=== PATIENT | male | born 1955 | race Caucasian/White ===

== ENCOUNTER → 2017-12-02 09:22 | Outpatient (CLI) | payer OTHER, SELFPAY ==
[2017-12-02 12:14] LABS: Absolute Lymphocyte Count 1.55 X10^3/ul (0.83-4.51); Absolute Neutrophil Count 4.7 X10^3/uL (2.0-7.7); Basophil# 0.05 X10^3/uL; Basophil% 0.7 % (0-1); Eosinophil# 0.19 X10^3/uL; Eosinophils% 2.6 % (0-5); Hematocrit 40.1 % (40-54); Hemoglobin 13.8 g/dl (13.0-16.5); Lymphocyte # 1.55 X10^3/ul (4.0); Lymphocyte % 21.1 % (19-41); Mean Corp Hgb Conc 34.4 g/gl (32-36); Mean Corpuscular Hgb 32.5 pg (27.0-32.0); Mean Corpuscular Volume 94.6 fL (80-94); Mean Platelet Vol. 11.3 fl (6.2-12.0); Monocyte# 0.84 X10^3/uL; Monocyte% 11.4 % (0-10); Neutrophil % 63.8 % (47-70); Platelet Count 223 K/mm3 (150-450); RBC Distribution Width CV 11.6 % (11.6-14.6); RBC Distribution Width SD 39.8 fl (35.1-43.9); Red Blood Count 4.24 M/mm3 (4.6-6.2); White Blood Count 7.4 K/mm3 (4.4-11.0)
[2017-12-02 12:29] LABS: Hemoglobin A1c 5.5 % (4.2-6.3)
[2017-12-02 12:35] LABS: AST(SGOT) 16 U/L (15-37); Alanine Aminotransfer ALT/SGPT 32 U/L (16-61); Albumin, Serum 3.8 g/dL (3.2-5.0); Alkaline Phosphatase 65 U/L (45-117); Anion Gap 9 (5-15); BUN 13 mg/dL (7-18); BUN/Creat Ratio 12.3 RATIO (10-20); Calcium,Total 8.8 mg/dL (8.5-10.1); Chloride 100 mmol/L (98-107); Creatinine, Serum 1.06 mg/dL (0.70-1.30); EST Glomerular Filtration Rate 75 mL/min (>60); Est Glom Filt Rate - Afr Amer 91 mL/min (>60); Ferritin 173 ng/mL (26-388); Globulin 3.7 g/dL (2.2-4.2); Glucose 107 mg/dL (70-110); Iron 140 ug/dL (65-175); Protein, Total 7.5 g/dL (6.4-8.2); Sodium Level 136 mmol/L (136-145)
[2017-12-02 12:39] LABS: POSITIVE COUNT NO; POSITIVE DIFFERENTIAL NO; POSITIVE MORPHOLOGY NO
== END ==
PROVIDERS: Family Provider Family Medicine; PCP Family Medicine; Visit Provider Family Medicine
DX: I10 Essential (primary) hypertension (principal); E78.5 Hyperlipidemia, unspecified; D64.9 Anemia, unspecified; R73.01 Impaired fasting glucose
CPT/HCPCS: 36415; 80053; 82728; 83036; 83540; 84443; 85025

== ENCOUNTER → 2018-12-15 08:51 | Outpatient (CLI) | payer OTHER, SELFPAY ==
[2018-12-15 12:18] LABS: Absolute Lymphocyte Count 1.58 X10^3/ul (0.83-4.51); Absolute Neutrophil Count 4.7 X10^3/uL (2.0-7.7); Basophil# 0.05 X10^3/uL; Basophil% 0.7 % (0-1); Eosinophil# 0.27 X10^3/uL; Eosinophils% 3.6 % (0-5); Hematocrit 40.2 % (40-54); Hemoglobin 13.3 g/dl (13.0-16.5); Lymphocyte # 1.58 X10^3/ul (4.0); Lymphocyte % 21.3 % (19-41); Mean Corp Hgb Conc 33.1 g/gl (32-36); Mean Corpuscular Hgb 31.8 pg (27.0-32.0); Mean Corpuscular Volume 96.2 fL (80-94); Mean Platelet Vol. 10.8 fl (6.2-12.0); Monocyte# 0.75 X10^3/uL; Monocyte% 10.1 % (0-10); Neutrophil # 4.74 X10^3/uL (2.7-7.7); Platelet Count 296 K/mm3 (150-450); RBC Distribution Width CV 11.8 % (11.6-14.6); RBC Distribution Width SD 40.7 fl (35.1-43.9); Red Blood Count 4.18 M/mm3 (4.6-6.2); White Blood Count 7.4 K/mm3 (4.4-11.0)
[2018-12-15 12:20] LABS: POSITIVE COUNT NO; POSITIVE DIFFERENTIAL NO; POSITIVE MORPHOLOGY NO
[2018-12-15 12:39] LABS: BUN 9 mg/dL (7-18); Creatinine, Serum 1.01 mg/dL (0.70-1.30); Glucose 108 mg/dL (74-106)
[2018-12-15 12:40] LABS: AST(SGOT) 18 U/L (15-37); Alanine Aminotransfer ALT/SGPT 27 U/L (16-61); Albumin, Serum 3.7 g/dL (3.2-5.0); Alkaline Phosphatase 67 U/L (45-117); Anion Gap 9 (5-15); BUN/Creat Ratio 8.9 RATIO (10-20); Calcium,Total 8.8 mg/dL (8.5-10.1); Chloride 105 mmol/L (98-107); EST Glomerular Filtration Rate 79 mL/min (>60); Est Glom Filt Rate - Afr Amer 96 mL/min (>60); Globulin 3.8 g/dL (2.2-4.2); Potassium 4.5 mmol/L (3.5-5.1); Protein, Total 7.5 g/dL (6.4-8.2); Sodium Level 139 mmol/L (136-145); T4 Free Direct 1.13 ng/dL (0.76-1.46); Thyroid Stim Hormone (TSH) 1.07 uIU/mL (0.358-3.74)
== END ==
PROVIDERS: Family Provider Family Medicine; PCP Family Medicine; Visit Provider Family Medicine
DX: I10 Essential (primary) hypertension (principal); D64.9 Anemia, unspecified; M10.9 Gout, unspecified
CPT/HCPCS: 36415; 80053; 84439; 84443; 84550; 85025

== ENCOUNTER 2019-01-12 09:10 | Day surgery (SDC) | payer OTHER, SELFPAY ==
[2019-01-12] VITALS (8 sets, daily range): BP systolic 91–128; BP diastolic 57–77; PULSE 57–81; RESP 16; TEMP 35.6–37; O2SAT 93–100; BMI 28.4
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
--- NOTE | 2019-01-12 10:44 | OP.ENDO_ITS ---
01/12/2019 Dorian Metzger Re : Colonoscopy procedure for Vincenzo Benítez Dear Yassine This procedure was performed on Saturday, January 12, 2019. My impressions and recommendations are as follows: Impressions : - One bleeding colonic angioectasia. Treated with argon beam coagulation. - The examination was otherwise normal on direct and retroflexion views. - No specimens collected. Recommendations : - Discharge patient to home. - Resume previous diet. - Continue present medications. - Repeat colonoscopy in 10 years for screening purposes. My findings are described in the full procedure note, which is enclosed. If I can be of further assistance, please feel free to contact me at Doctor phone number(s): , Work: . Sincerely, Nikhil Freedman MD 01/12/2019 10:43:46 AM This report has been signed electronically.
== END 2019-01-12 11:29 | disposition home or self-care (01) ==
LOC: EN 09:11 → AC 09:12
PROVIDERS: Family Provider Family Medicine; PCP Family Medicine; Referring Provider Surgery; Visit Provider Surgery
PROC: 0DJD8ZZ Inspection of Lower Intestinal Tract, Via Natural or Artificial Opening Endoscopic (ICD-10-PCS; CPT 45378; principal; 2019-01-12 10:25)
DX: Z12.11 Encounter for screening for malignant neoplasm of colon (principal); K55.21 Angiodysplasia of colon with hemorrhage; E78.00 Pure hypercholesterolemia, unspecified; I10 Essential (primary) hypertension; Z79.899 Other long term (current) drug therapy; Z79.82 Long term (current) use of aspirin
CPT/HCPCS: 45382; J7120

== ENCOUNTER 2019-01-18 06:38 | Day surgery (SDC) | payer OTHER, SELFPAY ==
[2019-01-12 09:20] VITALS: BMI 28.4
[2019-01-18] VITALS (7 sets, daily range): BP systolic 87–127; BP diastolic 48–81; PULSE 64–87; RESP 18; TEMP 36.1–36.6; O2SAT 96–100; BMI 27.9
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
--- NOTE | 2019-01-18 08:00 | COLBX_PTH ---
PATIENT: SOFYA CABRERA LOC: EN U#:[id number] AGE/SX: 63/M ROOM: RE01/18/[address]: Dr. Nikhil Freedman MD : [id number] BED: DIS: 01/18/2019 SPEC #: [id number] RECD: 01/18/19 09:05 STATUS: CATHERINE DEVIN #: [id number] CORY: 01/18/19 08:[address]: Nikhil Freedman DEPT: SURGICAL PATHOLOGY RECD BY: Hal Willson ENTERED: 01/18/19 10:37 SP TYPE: COLON BX OTHR DR: Dr. Dorian Metzger MD Tissues: Rectum, NOS Procedures: Surgery Specimen Level IV HEADER OPERATION: Colonoscopy (MAC) PRE-OP DIAGNOSIS: GI bleeding; history of AVM TISSUE SUBMITTED: Polyp rectum MICROSCOPIC DIAGNOSIS Polyp rectum, biopsy: Tubular adenoma. SJ:cristy 01/19/19 MICROSCOPIC DESCRIPTION Slides are reviewed. GROSS DESCRIPTION Received in fixative is one container labeled with the patient's name and designated polyp rectum. The specimen consists of a piece of biswas-pink polyp measuring 0.4 x 0.3 x 0.2 cm. The specimen is totally submitted in one cassette. / SJ:cristy 01/18/19 TC:1 CPT: 77182
--- NOTE | 2019-01-18 08:22 | OP.ENDO_ITS ---
01/18/2019 Dorian Metzger Re : Colonoscopy procedure for Vincenzo Benítez Dear Yassine This procedure was performed on December. My impressions and recommendations are as follows: Impressions : - One recently bleeding colonic angioectasia. Clips were placed. - One polyp in the rectum, removed with a hot snare. Resected and retrieved. Recommendations : - Await pathology results. - Repeat colonoscopy date to be determined after pending pathology results are reviewed for surveillance based on pathology results. - Continue present medications. My findings are described in the full procedure note, which is enclosed. If I can be of further assistance, please feel free to contact me at Doctor phone number(s): , Work: . Sincerely, Nikhil Freedman MD 01/18/2019 8:22:27 AM This report has been signed electronically.
== END 2019-01-18 08:53 | disposition home or self-care (01) ==
LOC: EN 06:39 → AC 06:40
PROVIDERS: Family Provider Family Medicine; PCP Family Medicine; Referring Provider Surgery; Visit Provider Surgery
PROC: 0DJD8ZZ Inspection of Lower Intestinal Tract, Via Natural or Artificial Opening Endoscopic (ICD-10-PCS; CPT 45378; principal; 2019-01-18 07:55)
DX: D12.8 Benign neoplasm of rectum (principal); K55.21 Angiodysplasia of colon with hemorrhage; Q27.33 Arteriovenous malformation of digestive system vessel; E78.00 Pure hypercholesterolemia, unspecified; I10 Essential (primary) hypertension; Z79.82 Long term (current) use of aspirin; Z79.899 Other long term (current) drug therapy
CPT/HCPCS: 45380; 45382; 88305; J7120

== ENCOUNTER → 2019-12-31 | Outpatient (CLI) | payer BC, SELFPAY ==
[2019-01-18 07:11] VITALS: BMI 27.9
[2019-12-31 12:53] LABS: Absolute Lymphocyte Count 1.32 X10^3/uL (0.83-4.51); Absolute Neutrophil Count 6.9 X10^3/uL (2.0-7.7); Basophil# 0.05 X10^3/uL; Basophil% 0.5 % (0-1); Eosinophil# 0.19 X10^3/uL; Hematocrit 41.4 % (40-54); Hemoglobin 13.6 g/dL (13.0-16.5); Lymphocyte # 1.32 X10^3/ul (4.0); Mean Corp Hgb Conc 32.9 g/dL (32-36); Mean Corpuscular Hgb 31.6 pg (27.0-32.0); Mean Corpuscular Volume 96.3 fL (80-94); Mean Platelet Vol. 11.3 fl (6.2-12.0); Monocyte# 0.89 X10^3/uL; Monocyte% 9.5 % (0-10); NRBC Flagged by Analyzer 0 % (0-5); Neutrophil # 6.92 X10^3/uL (2.7-7.7); Neutrophil % 73.6 % (47-70); Platelet Count 248 K/mm3 (150-450); RBC Distribution Width CV 11.9 % (11.6-14.6); RBC Distribution Width SD 41.9 fl (35.1-43.9); White Blood Count 9.4 K/mm3 (4.4-11.0)
[2019-12-31 13:37] LABS: ALB/GLOB Ratio 0.9 RATIO (0.9-2.4); AST(SGOT) 13 U/L (15-37); Alanine Aminotransfer ALT/SGPT 27 U/L (16-61); Albumin, Serum 3.6 g/dL (3.2-5.0); Alkaline Phosphatase 78 U/L (45-117); Anion Gap 5 (5-15); BUN 15 mg/dL (7-18); BUN/Creat Ratio 14.9 RATIO (10-20); Calcium,Total 9.1 mg/dL (8.5-10.1); Chloride 107 mmol/L (98-107); Creatinine, Serum 1.01 mg/dL (0.70-1.30); EST Glomerular Filtration Rate 79 mL/min (>60); Est Glom Filt Rate - Afr Amer 95 mL/min (>60); Globulin 3.9 g/dL (2.2-4.2); Glucose 91 mg/dL (74-106); Iron 152 ug/dL (65-175); Protein, Total 7.5 g/dL (6.4-8.2); Sodium Level 140 mmol/L (136-145); Thyroid Stim Hormone (TSH) 1.17 uIU/mL (0.358-3.74); Uric Acid 7.3 mg/dL (3.5-7.2)
== END | disposition home or self-care (01) ==
LOC: BFHLAB 10:37
PROVIDERS: PCP Family Medicine; Visit Provider Family Medicine
DX: I10 Essential (primary) hypertension (principal); E78.5 Hyperlipidemia, unspecified; D64.9 Anemia, unspecified
CPT/HCPCS: 36415; 80053; 83540; 84443; 84550; 85025

== ENCOUNTER → 2020-12-31 08:53 | Outpatient (CLI) | payer BC, SELFPAY ==
[2019-01-18 07:11] VITALS: BMI 27.9
[2020-12-31 12:16] LABS: Absolute Lymphocyte Count 1.56 X10^3/uL (0.83-4.51); Absolute Neutrophil Count 4.4 X10^3/uL (2.0-7.7); Basophil# 0.05 X10^3/uL; Basophil% 0.7 % (0-1); Eosinophil# 0.16 X10^3/uL; Eosinophils% 2.3 % (0-5); Hematocrit 41.7 % (40-54); Hemoglobin 13.4 g/dL (13.0-16.5); Lymphocyte # 1.56 X10^3/ul (4.0); Lymphocyte % 22.4 % (19-41); Mean Corp Hgb Conc 32.1 g/dL (32-36); Mean Corpuscular Hgb 31.6 pg (27.0-32.0); Mean Corpuscular Volume 98.3 fL (80-94); Mean Platelet Vol. 10.9 fl (6.2-12.0); Monocyte% 11.5 % (0-10); NRBC Flagged by Analyzer 0 % (0-5); Neutrophil # 4.36 X10^3/uL (2.7-7.7); Neutrophil % 62.5 % (47-70); Platelet Count 260 K/mm3 (150-450); Red Blood Count 4.24 M/mm3 (4.6-6.2)
[2020-12-31 12:57] LABS: AST(SGOT) 19 U/L (15-37); Alanine Aminotransfer ALT/SGPT 31 U/L (16-61); Albumin, Serum 3.8 g/dL (3.2-5.0); Alkaline Phosphatase 82 U/L (45-117); Anion Gap 7 (5-15); BUN 12 mg/dL (7-18); BUN/Creat Ratio 11.5 RATIO (10-20); Chloride 103 mmol/L (98-107); Cholesterol 215 mg/dL (200); Creatinine, Serum 1.04 mg/dL (0.70-1.30); EST Glomerular Filtration Rate 76 mL/min (>60); Est Glom Filt Rate - Afr Amer 92 mL/min (>60); Globulin 3.9 g/dL (2.2-4.2); Glucose 102 mg/dL (74-106); High Density Lipoprotein 56 mg/dL; Potassium 3.9 mmol/L (3.5-5.1); Protein, Total 7.7 g/dL (6.4-8.2); Sodium Level 138 mmol/L (136-145); T4 Free Direct 1.23 ng/dL (0.76-1.46); Thyroid Stim Hormone (TSH) 1.63 uIU/mL (0.358-3.74); Triglycerides 133 mg/dL; Uric Acid 6.8 mg/dL (3.5-7.2); Very Low Density Lipoprotein 27 mg/dL (5-40)
[2020-12-31 13:04] LABS: Hemoglobin A1c 5.6 % (3.8-5.6)
== END ==
PROVIDERS: PCP Family Medicine; Visit Provider Family Medicine
DX: E78.5 Hyperlipidemia, unspecified (principal); D64.9 Anemia, unspecified; I10 Essential (primary) hypertension; R73.01 Impaired fasting glucose
CPT/HCPCS: 36415; 80053; 80061; 83036; 84439; 84443; 84550; 85025

== ENCOUNTER → 2023-03-16 | Outpatient (CLI) | payer BC, SELFPAY ==
[2023-03-16 18:17] LABS: Absolute Lymphocyte Count 2.02 X10^3/uL (0.83-4.51); Absolute Neutrophil Count 5.6 X10^3/uL (2.0-7.7); Basophil# 0.07 X10^3/uL; Basophil% 0.8 % (0-1); Eosinophil# 0.11 X10^3/uL; Eosinophils% 1.3 % (0-5); Hemoglobin 13.2 g/dL (13.0-16.5); Lymphocyte # 2.02 X10^3/ul (0.83-4.51); Lymphocyte % 23.3 % (19-41); Mean Corp Hgb Conc 33.8 g/dL (32-36); Mean Corpuscular Hgb 32.7 pg (27.0-32.0); Mean Corpuscular Volume 96.5 fL (80-94); Mean Platelet Vol. 11.1 fl (6.2-12.0); Monocyte% 10.4 % (0-10); NRBC Flagged by Analyzer 0 % (0-5); Neutrophil # 5.55 X10^3/uL (2.7-7.7); Neutrophil % 63.9 % (47-70); Platelet Count 235 K/mm3 (150-450); RBC Distribution Width CV 12.1 % (11.6-14.6); RBC Distribution Width SD 42.6 fl (35.1-43.9); Red Blood Count 4.04 M/mm3 (4.6-6.2); White Blood Count 8.7 K/mm3 (4.4-11.0)
[2023-03-16 18:54] LABS: ALB/GLOB Ratio 0.9 RATIO (0.9-2.4); AST(SGOT) 23 U/L (15-37); Alanine Aminotransfer ALT/SGPT 31 U/L (16-61); Albumin, Serum 3.7 g/dL (3.2-5.0); Alkaline Phosphatase 66 U/L (45-117); Anion Gap 6 (5-15); BUN 15 mg/dL (7-18); BUN/Creat Ratio 14.7 RATIO (10-20); Calcium,Total 8.9 mg/dL (8.5-10.1); Chloride 105 mmol/L (98-107); Cholesterol 206 mg/dL (200); Creatinine, Serum 1.02 mg/dL (0.70-1.30); EST Glomerular Filtration Rate 77 mL/min (>60); Est Glom Filt Rate - Afr Amer 93 mL/min (>60); Globulin 4.2 g/dL (2.2-4.2); Glucose 97 mg/dL (74-106); High Density Lipoprotein 48 mg/dL; PSA,Total - Annual Screen 3.43 ng/mL (0.00-4.00); Potassium 4.1 mmol/L (3.5-5.1); Protein, Total 7.9 g/dL (6.4-8.2); Sodium Level 138 mmol/L (136-145); Triglycerides 132 mg/dL; Very Low Density Lipoprotein 26 mg/dL (5-40)
== END | disposition home or self-care (01) ==
LOC: BFHLAB 14:19
PROVIDERS: PCP Nurse Practitioner Family; Referring Provider Nurse Practitioner Family; Visit Provider Nurse Practitioner Family
DX: E78.5 Hyperlipidemia, unspecified (principal); I10 Essential (primary) hypertension; Z12.5 Encounter for screening for malignant neoplasm of prostate
CPT/HCPCS: 36415; 80053; 80061; 84153; 85025; G0103

== ENCOUNTER → 2024-03-19 | Outpatient (CLI) | payer MEDICARE, SELFPAY ==
[2024-03-19 10:20] LABS: Absolute Neutrophil Count 3.8 X10^3/uL (2.0-7.7); Basophil# 0.05 X10^3/uL; Basophil% 0.8 % (0-1); Eosinophil# 0.14 X10^3/uL; Eosinophils% 2.2 % (0-5); Hematocrit 38.1 % (40-54); Lymphocyte % 24.9 % (19-41); Mean Corp Hgb Conc 34.1 g/dL (32-36); Mean Corpuscular Hgb 32.6 pg (27.0-32.0); Mean Corpuscular Volume 95.5 fL (80-94); Mean Platelet Vol. 10.6 fl (6.2-12.0); Monocyte# 0.82 X10^3/uL; Monocyte% 12.8 % (0-10); NRBC Flagged by Analyzer 0 % (0-5); Neutrophil # 3.79 X10^3/uL (2.7-7.7); Neutrophil % 58.8 % (47-70); Platelet Count 233 K/mm3 (150-450); RBC Distribution Width CV 12.2 % (11.6-14.6); RBC Distribution Width SD 42.4 fl (35.1-43.9); Red Blood Count 3.99 M/mm3 (4.6-6.2); White Blood Count 6.4 K/mm3 (4.4-11.0)
[2024-03-19 11:39] LABS: AST(SGOT) 12 U/L (15-37); Alanine Aminotransfer ALT/SGPT 20 U/L (16-61); Albumin, Serum 3.7 g/dL (3.2-5.0); Alkaline Phosphatase 62 U/L (45-117); Anion Gap 7 (5-15); BUN 18 mg/dL (7-18); BUN/Creat Ratio 15.8 RATIO (10-20); Calcium,Total 9.3 mg/dL (8.5-10.1); Chloride 103 mmol/L (98-107); Cholesterol 228 mg/dL (200); Creatinine, Serum 1.14 mg/dL (0.70-1.30); EST Glomerular Filtration Rate 68 mL/min (>60); Est Glom Filt Rate - Afr Amer 82 mL/min (>60); Globulin 3.7 g/dL (2.2-4.2); Glucose 111 mg/dL (74-106); High Density Lipoprotein 45 mg/dL; PSA,Total - Annual Screen 3.88 ng/mL (0.00-4.00); Potassium 3.9 mmol/L (3.5-5.1); Protein, Total 7.4 g/dL (6.4-8.2); Sodium Level 135 mmol/L (136-145); Triglycerides 217 mg/dL; Very Low Density Lipoprotein 43 mg/dL (5-40)
[2024-03-19 12:31] LABS: Hemoglobin A1c 5.5 % (3.8-5.6)
== END | disposition home or self-care (01) ==
PROVIDERS: PCP Nurse Practitioner Family; Referring Provider Nurse Practitioner Family; Visit Provider Nurse Practitioner Family
DX: Z12.5 Encounter for screening for malignant neoplasm of prostate (principal); I10 Essential (primary) hypertension; E78.5 Hyperlipidemia, unspecified; R73.01 Impaired fasting glucose
CPT/HCPCS: 36415; 80053; 80061; 83036; 84153; 85025; G0103

== ENCOUNTER → 2025-03-22 | Outpatient (CLI) | payer MEDICARE, SELFPAY ==
[2025-03-22 10:32] LABS: Absolute Lymphocyte Count 1.58 X10^3/uL (0.83-4.51); Absolute Neutrophil Count 4.3 X10^3/uL (2.0-7.7); Basophil# 0.07 X10^3/uL; Eosinophil# 0.13 X10^3/uL; Eosinophils% 1.9 % (0-5); Hemoglobin 12.8 g/dL (13.0-16.5); Lymphocyte # 1.58 X10^3/ul (0.83-4.51); Lymphocyte % 22.7 % (19-41); Mean Corp Hgb Conc 33.7 g/dL (32-36); Mean Corpuscular Hgb 31.8 pg (27.0-32.0); Mean Corpuscular Volume 94.3 fL (80-94); Mean Platelet Vol. 10.8 fl (6.2-12.0); Monocyte# 0.87 X10^3/uL; Monocyte% 12.5 % (0-10); NRBC Flagged by Analyzer 0 % (0-5); Neutrophil # 4.26 X10^3/uL (2.7-7.7); Neutrophil % 61.3 % (47-70); Platelet Count 211 K/mm3 (150-450); RBC Distribution Width CV 13.2 % (11.6-14.6); RBC Distribution Width SD 45.3 fl (35.1-43.9); Red Blood Count 4.03 M/mm3 (4.6-6.2)
[2025-03-22 11:14] LABS: ALB/GLOB Ratio 1.3 RATIO (0.9-2.4); AST(SGOT) 19 U/L (<=37); Alanine Aminotransfer ALT/SGPT 16 U/L (<=46); Alkaline Phosphatase 77 U/L (40-129); Anion Gap 12 (5-15); BUN 14 mg/dL (4-19); BUN/Creat Ratio 14.7 RATIO (10-20); Calcium,Total 9.7 mg/dL (7.6-11.0); Carbon Dioxide 24.6 mmol/L (21.0-32.0); Chloride 101 mmol/L (98-108); Cholesterol 202 mg/dL (<=200); Creatinine, Serum 0.93 mg/dL (0.70-1.20); EST Glomerular Filtration Rate 88 (>60); Globulin 3.2 g/dL (2.2-4.2); Glucose 96 mg/dL (70-99); High Density Lipoprotein 50 mg/dL; Low Density Lipoprotein Calc. 127 mg/dL; Potassium 3.8 mmol/L (3.3-5.1); Protein, Total 7.2 g/dL (5.9-8.4); Sodium Level 138 mmol/L (133-145); Total Bilirubin 0.39 mg/dL (0.00-1.30); Triglycerides 127 mg/dL; Very Low Density Lipoprotein 25 mg/dL (5-40); cholesterol:hdl ratio screen 4.08
== END | disposition home or self-care (01) ==
LOC: MTLAB 08:58
PROVIDERS: PCP Nurse Practitioner Family; Referring Provider Nurse Practitioner Family; Visit Provider Nurse Practitioner Family
DX: I10 Essential (primary) hypertension (principal); E78.5 Hyperlipidemia, unspecified; R73.01 Impaired fasting glucose; Z12.5 Encounter for screening for malignant neoplasm of prostate
CPT/HCPCS: 36415; 80053; 80061; 83036; 84153; 85025; G0103

== ENCOUNTER → 2025-04-09 | Outpatient (CLI) | payer MEDICARE, SELFPAY ==
--- OUTSIDE RECORDS SUMMARY | 2025-04-09 09:15 | XMS RPT_ITS | CCD ---
Author Organization [facility] Inform ion Partnership [facility] Care Team Providers Care Medical Insurance Claims Specialist Name Role Phone Evin PERALTA-EULALIO, [place] Primary Care Provider [phone] EVIN, MORGAN HILL Primary Care Unavailable ENRRIQUE ARROYO Admitting Unavailable FELIX LUNDY Attending Unavailable CARLY JOSEPH Consulting Unavailable Evin TSAI, [place] Primary Care Provider VERONICA MAN Attending Unavailable EVIN, MORGAN HILL Primary Care Unavailable FACUNDO WOODS Admitting Unavailab ERLINDA Campuzano Consulting Unavailable JAG MEDRANO Attending UnavailHONEY Marrufo Referring Unavailable EVIN, MORGAN HILL Primary Care Unavailable FACUNDO WOODS Admitting Unavailab FACUNDO Ohara Consulting Unavailab le EVIN, MORGAN HILL Primary Care Unavailable FACUNDO WOODS Attending Unavailab FACUNDO Ohara Admitting Unavailab le EVIN, MORGAN HILL Primary Care Unavailable FACUNDO WOODS Attending Unavailab le EVIN, MORGAN HILL Primary Care Unavailable FACUNDO WOODS Attending Unavailab le Evin WOOD [employer]INET FINISHER-C, Bashir Primary Care Provider Evin WOOD CABINET FINISHER-C, Bashir Attending Provider Evin WOOD CABINET FINISHER-C, Bashir Referring Provider Evin Bashir Referring Unavailable Evin, Bashir Attending Unavailable Evin, [place] Primary Care Unavailable Medications Current Medications Medication Drug Class(es) Dates Sig (Normalized) Sig (Original) amoxicillin 875 mg / clavulanate 125 mg oral tablet (5 sources) Penicillin-class Antibacterial Start: 11-24-2024 End: 11-29-2024 take 1 tablet by mouth twice daily amoxicillin-clav ulanate (AUGMENTIN) 875-125 mg per tablet Take 1 (one) tablet by mouth 2 (two) times a day for 5 days . 10 tablet 11/24/2024 11/29/2024 Active Start: 11-08-2024 End: 11-23-2024 amoxicillin-clavulanate (AUG MENTIN) 500-125 mg per tablet DONE ON 11/18/24 BID . 11/08/2024 11/23/2024 Discontinued Start: 10-19-2024 End: 10-29-2024 take 1 tablet by mouth twice daily amoxicillin-clavulanate (AUGMENTIN) 875-125 mg per tablet Take 1 (one) tablet by mouth 2 (two) times a day for 10 days . 20 tablet 10/19/2024 10/29/2024 Active aspirin 81 mg delayed release oral tablet (1 source) Platelet Aggregation Inhibitor, Nonsteroidal Anti-inflammatory Drug Start: 01-10-2019 take 1 tablet by mouth once daily Aspirin 81 MG tablet,delayed release (DR/EC) Active 81 mg PO DAILY January 10, 2019 12:00am 200 ml ciprofloxacin 2 mg/ml injection (1 source) Quinolone Antimicrobial Start: 10-12-2024 take 400 mg intravenously every twelve hours 400 mg, intravenous, at 200 mL/hr, Administer over 60 Minutes, Every 12 hours, First dose on Tue10/12/24 at 1530, premix bag, Dosing of this medication varies based on severity of illness. Does this patient have sepsis or concern for sepsis (probable or documented infection plus systemic manifestations of infection)? Yes, Suspected Indication (Select all that apply): Abdominal Infection, Type of Therapy: Definitive, No Cultures, Type of infection: Community-Acquire d, Indications: Abdominal Infection 2 ml famotidine 10 mg/ml injection (2 sources) Histamine-2 Receptor Antagonist Start: 10-11-2024 20 mg, intravenous, Administer over 2 Minutes, Every 12 hours scheduled, First dose on Hien 10/11/24 at 0900 furosemide 20 mg oral tablet (6 sources) Loop Diuretic Start: 10-16-2024 End: 10-21-2024 take 1 tablet by mouth once daily furosemide (Lasix) 20 mg tablet Indications: Other acute appendicitis Take 1 tablet (20 mg) by mouth once daily for 3 doses. 10/18/2024 10/21/2024 Active Start: 10-14-2024 take 20 mg intravenously once 20 mg, intravenous, Once, On 10/15/24 at 2000, For 1 dose, For doses less than or = 160 mg, give IV push at maximum rate of 40 mg/min For doses greater than 160 mg, dilute in 50 mL and administer at 4 mg/min magnesium hydroxide 80 mg/ml oral suspension (2 sources) Start: 10-11-2024 take 30 mL by mouth every twenty-four hours as needed ondansetron ODT (Zofran-ODT) disintegrating tablet 4 mg (2 sources) Start: 10-11-2024 take 1 tablet by mouth every eight hours as needed ondansetron ODT (Zofran-ODT) disintegrating tablet 4 mg oxyCODONE hydrochloride 5 mg oral tablet (5 sources) Opioid Agonist Start: 11-23-2024 End: 11-29-2024 take 1 tablet by mouth every six hours as needed for pain oxyCODONE (ROXICODONE) 5 MG immediate release tablet Indications: Perforated appendicitis Take 1 (one) tablet (5 mg total) by mouth every 6 (six) hours as needed for pain (Days supply per fill: 5) . 16 tablet 11/24/2024 11/29/2024 Active Start: 10-11-2024 take 1 tablet by [facility] every six hours as needed 5 mg, oral, Every 6 hours PRN, pain moderate (4-6), first line, Starting on Hien 10/11/24 at 0843, If ordered PRN for pain, nurse is permitted to administer this medication for higher pain scores based on patient preference? Yes potassium chloride 20 meq powder for oral solution (3 sources) Start: 10-17-2024 take 40 mEq by mouth twice daily potassium chloride (Klor-Con) 20 mEq packet Indications: Other acute appendicitis Take 40 mEq by mouth 2 times a day. 10/17/2024 Active Start: 10-14-2024 End: 10-14-2024 take 1 [oz_av] by mouth once 40 mEq, oral, Once, On [facility] 10/14/24 at 1200, For 1 dose, Dissolve each packet in 4 ounces of water = 5 mEq per 1 oz fluid. Start: 10-14-2024 take 1 [oz_av] by mo [facility] [place] twice daily 40 mEq, oral, 2 times daily, First dose on [place] 10/14/24 at 0900, Dissolve each packet in 4 ounces of water = 5 mEq per 1 oz fluid. pravastatin sodium 20 mg oral tablet (1 source) HMG-CoA Reductase Inhibitor Start: 01-10-2019 take 1 tablet by mouth at bedtime Pravastatin 20 MG tablet Active 20 mg PO AT BEDTIME January 10, 2019 12:00am Completed/Discontinued Medications Medication Drug Class(es) Dates Sig (Normalized) Sig (Original) acetaminophen 325 mg oral tablet (4 sources) Start: 11-23-2024 End: 11-24-2024 take 1 tablet by mouth every six hours as needed for headache and pain 650 mg, Oral, Every 6 hours PRN, headaches, mild pain, Starting on Tue11/23/24 at 2046 Start: 10-17-2024 End: 10-19-2024 take 1 tablet by mouth every eight hours as needed for pain and headache 975 mg, Oral, Every 8 hours PRN, mild pain, fever 100.4 F or greater, headaches, Starting on Tue10/17/24 at 2137 Start: 10-11-2024 take 1 tablet by db th every six hours acetaminophen (Tylenol) tablet 650 mg bisacodyl 10 mg rectal suppository (1 source) Stimulant Laxative Start: 10-17-2024 End: 10-19-2024 calcium chloride 0.0014 meq/ml / potassium chloride 0.004 meq/ml / sodium chloride 0.103 meq/ml / sodium lactate 0.028 meq/ml injectable solution (4 sources) Start: 11-23-2024 End: 11-23-2024 take 75 mL intravenously every hour 75 mL/hr, Intravenous, Continuous, Starting on Tue11/23/24 at 0645, Pre-Procedure Start: 10-12-2024 End: 10-14-2024 take 75 mL intravenously every hour 75 mL/hr, intravenous, Continuous, Starting on Tue10/13/24 at 1000, For 48 days ceFAZolin 2000 mg injection (1 source) Cephalosporin Antibacterial Start: 11-23-2024 End: 11-24-2024 take 2000 mg intravenously every eight hours 2,000 mg, Intravenous, at 100 mL/hr, Every 8 hours, First dose on Tue11/23/24 at 1545, For 2 doses, Starting 8 hours after pre-procedure dose x 2 doses., Indication (POST PROCEDURE): Gastro docusate sodium 100 mg oral capsule (1 source) Start: 10-17-2024 End: 10-19-2024 1 ml fentaNYL 0.05 mg/ml injection (1 source) Opioid Agonist Start: 10-18-2024 End: 10-18-2024 Intravenous, Code/trauma/sedat ion medication, Starting on Hien 10/18/24 at 1031, Intra-Procedure fentaNYL (SUBLIMAZE) inj syringe 50 mcg (1 source) Start: 10-18-2024 End: 10-19-2024 50 mcg, Intravenous, Every 5 min PRN, sedation, Starting on Hien 10/18/24 at 0958, For 5 doses, Intra-Procedure, May repeat x 4 doses (for 5 doses TOTAL 250 mcg). Give IV push over 2 minutes; may repeat x4 if RASS score greater than or equal to -2. Do not give if RASS is less than or equal to -3. Consult physician for further orders. For use in Interventional Radiology during procedure ONLY. hydroCHLOROthiazide 12.5 mg oral tablet (6 sources) Thiazide Diuretic Start: 11-23-2024 End: 11-24-2024 take 12.5 mg by mouth once daily 12.5 mg, Oral, Daily, First dose on Tue11/23/24 at 1215 0.5 ml HYDROmorphone hydrochloride 1 mg/ml prefilled syringe (2 sources) Opioid Agonist Start: 10-11-2024 End: 10-11-2024 0.5 mg, intravenous, Once, On Hien 10/11/24 at 0600, For 1 dose Start: 10-11-2024 End: 10-11-2024 0.5 mg, intravenous, Once, O n Hien 10/11/24 at 0600, For 1 dose iohexol (OMNIPaque) 12 mg iodine/mL oral contrast 500 mL (1 source) Start: 10-17-2024 End: 10-17-2024 500 mL, oral, Once in imaging, Starting on Tue10/17/24 at 1235, For 1 dose, Administer over 20-60 minutes as directed by imaging protocol and/or imaging provider. CONTRAST - for procedural imaging use only. iohexol (OMNIPaque) 350 mg iodine/mL solution 67 mL (2 sources) Start: 10-11-2024 End: 10-11-2024 67 mL, intravenous, Once in imaging, Starting on Hien 10/11/24 at 0219, For 1 dose iopamidoL (ISOVUE-370) 370 mg iodine /mL (76 %) injection 75 mL (1 source) Start: 10-18-2024 End: 10-18-2024 75 mL, Intravenous, Once in imaging, contrast, Starting on Hien 10/18/24 at 0645, For 1 dose 1 ml ketorolac tromethamine 30 mg/ml injection (2 sources) Nonsteroidal Anti-inflammatory Drug, Cyclooxygenase Inhibitor Start: 10-11-2024 End: 10-12-2024 15 mg, intravenous, Every 6 hours scheduled, First dose on Hien 10/11/24 at 0730, For 5 days 10 ml lidocaine hydrochloride 10 mg/ml injection (1 source) Antiarrhythmic, Amide Local Anesthetic Start: 10-18-2024 End: 10-18-2024 Code/trauma/amos tion medication, Starting on Hien 10/18/24 at 1041, Intra-Procedure lisinopril 20 mg oral tablet (14 sources) Angiotensin Converting Enzyme Inhibitor Start: 11-24-2024 End: 11-24-2024 take 40 mg by mouth once daily at lunch 40 mg, Oral, Daily with lunch, First dose on 11/24/24 at 1200 Start: 10-20-2024 End: 11-19-2024 take 1 tablet by mouth once daily at lunch lisinopriL (PRINIVIL,ZESTRIL) 40 MG tablet Take 1 (one) tablet (40 mg total) by mouth daily with lunch Start: 10/20/24. 30 tablet 10/20/2024 Active Start: 10-18-2024 End: 10-19-2024 take 40 mg by mouth once daily at lunch 40 mg, Oral, Daily with lunch, First dose on Hien 10/18/24 at 1200 Start: 01-10-2019 End: 10-17-2024 take 40 mg by mouth once daily 40 mg, oral, Daily, First dose on Hien 10/11/24 at 0900 50 ml magnesium sulfate 40 mg/ml injection (2 sources) Start: 10-18-2024 End: 10-18-2024 2 g, Intravenous, at 25 mL/h r, Once, On Hien 10/18/24 at 0845, For 1 dose, Indication: Hypomagnesemia Start: 10-14-2024 End: 10-14-2024 2 g, intravenous, at 25 mL/h r, Administer over 2 Hours, Once, On 10/14/24 at 1315, For 1 dose melatonin 5 mg oral tablet (1 source) Start: 10-17-2024 End: 10-19-2024 100 ml metroNIDAZOLE 5 mg/ml injection (5 sources) Nitroimidazole Antimicrobial Start: 11-23-2024 End: 11-24-2024 take 500 mg intravenously every eight hours 500 mg, Intravenous, at 200 mL/hr, Every 8 hours, First dose on Tue11/23/24 at 1500, For 2 doses, [] Starting 8 hours after preop dosecompleted. DO NOT REFRIGERATE, Indication: Intra-abdomina l Infection Start: 11-23-2024 End: 11-23-2024 500 mg, Intravenous, at 200 mL/hr, Once, On Tue11/23/24 at 0645, For 1 dose, Pre-Procedure, Administer within 60 minutes prior to incision. DO NOT REFRIGERATE, Indication (PRE PROCEDURE): GI (Biliary Tract, Appendectomy,Colorectal, Small Intestine) Start: 10-19-2024 End: 10-29-2024 take 1 tablet by mouth three times daily at mealtime metroNIDAZOLE (FLAGYL) 500 MG tablet Take 1 (one) tablet (500 mg total) by mouth 3 (three) times a day with meals for 10 days . 30 tablet 10/19/2024 10/29/2024 Active Start: 10-12-2024 take 500 mg intraven ously every eight hours 500 mg, intravenous, Administer over 60 Minutes, Every 8 hours, First dose on Tue10/12/24 at 1530, Do NOT give with alcohol or drug products with significant alcohol content., Suspected Indication (Select all that apply): Abdominal Infection, Type of Therapy: Definitive, No Cultures, Type of infection: Community-Acquired, Indications: Abdominal Infection 5 ml midazolam 1 mg/ml injection (2 sources) Benzodiazepine Start: 10-18-2024 End: 10-19-2024 Intravenous, Code/trauma/sedation medication, Starting on Hien 10/18/24 at 1031, Intra-Procedure 1 ml morphine sulfate 2 mg/ml prefilled syringe (4 sources) Opioid Agonist Start: 10-11-2024 End: 10-12-2024 2 mg, intravenous, Every 3 hours PRN, pain severe (7-10), first line, Starting on Hien 10/11/24 at 0711 Start: 10-11-2024 End: 10-11-2024 4 mg, intravenous, Once, On Hien 10/11/24 at 0130, For 1 dose naloxone (NARCAN) injection 0.1 mg (2 sources) Start: 11-23-2024 End: 11-24-2024 naloxone (NARCAN) injection 0.1 mg Start: 10-18-2024 End: 10-19-2024 naloxone (NARCAN) injection 0.1 mg nitroglycerin 0.4 mg sublingual tablet (1 source) Nitrate Vasodilator Start: 10-17-2024 End: 10-19-2024 2 ml ondansetron 2 mg/ml injection (2 sources) Serotonin-3 Receptor Antagonist Start: 10-11-2024 End: 10-11-2024 4 mg, intravenous, Once, On Hien 10/11/24 at 0130, For 1 dose, When administering via IV Push, administer over 3-5 minutes. ondansetron (ZOFRAN-ODT) disintegrating tablet 4 mg (1 source) Start: 10-17-2024 End: 10-19-2024 take 1 tablet by mouth every six hours as needed for nausea and vomiting ondansetron (ZOFRAN-ODT) disintegrating tablet 4 mg piperacillin 3000 mg / tazobactam 375 mg injection (6 sources) Penicillin-class Antibacterial, beta Lactamase Inhibitor Start: 10-17-2024 End: 10-19-2024 take 3.375 g intravenously every eight hours 3.375 g, Intravenous, at 12.5 mL/hr, Every 8 hours, First dose on Tue10/17/24 at 2300, VESICANT, Indication: Intra-abdominal Infection Start: 10-12-2024 take 2.25 g intraven ously every six hours 2.25 g, intravenous, Administer over 0.5 Hours, Every 6 hours, First dose on Tue10/12/24 at 1500, premix bag, Dosing of this medication varies based on severity of illness. Does this patient have sepsis or concern for sepsis (probable or documented infection plus systemic manifestations of infection)? Yes, Suspected Indication (Select all that apply): Abdominal Infection, Type of Therapy: Empiric, Type of infection: Community-Acquired, Indications: Abdominal Infection Start: 10-11-2024 End: 10-12-2024 take 3.375 g intravenously every six hours 3.375 g, intravenous, Administer over 0.5 Hours, Every 6 hours, First dose on Hien 10/11/24 at 0900, premix bag, Dosing of this medication varies based on severity of illness. Does this patient have sepsis or concern for sepsis (probable or documented infection plus systemic manifestations of infection)? Yes, Suspected Indication (Select all that apply): Abdominal Infection, Type of Therapy: Definitive, No Cultures, Type of infection: Community-Acquired, Indications: Abdominal Infection Start: 10-11-2024 End: 10-11-2024 3.375 g, intravenous, Admini ster over 0.5 Hours, Once, On Hien 10/11/24 at 0325, For 1 dose, premix bag, Dosing of this medication varies based on severity of illness. Does this patient have sepsis or concern for sepsis (probable or documented infection plus systemic manifestations of infection)? No, Suspected Indication (Select all that apply): Abdominal Infection, Type of Therapy: Empiric, Type of infection: Community-Acquired, Indications: Abdominal Infection sennosides, detention 8.6 mg oral tablet (1 source) Start: 10-17-2024 End: 10-19-2024 1000 ml sodium chloride 9 mg /ml injection (13 sources) Start: 11-23-2024 End: 11-24-2024 Starting on Tue11/23/24 at 1527, For 1 dose, QUANG JORGENSEN: cabinet override Start: 10-18-2024 End: 10-18-2024 Code/trauma/sedation continu ous med, Starting on Hien 10/18/24 at 1030, Intra-Procedure Start: 10-17-2024 End: 10-19-2024 sodium chloride (PF) (NS) fl ush 5 mL Start: 10-16-2024 End: 10-16-2024 Starting on Tue10/16/24 at 2050, For 1 dose, Created by cabinet override Start: 10-11-2024 End: 10-12-2024 Starting on Tue10/12/24 at 2104, For 1 dose, Created by cabinet override Start: 10-11-2024 End: 10-12-2024 500 mL, intravenous, at 999 mL/hr, Administer over 0.5 Hours, Once, On Tue10/12/24 at 0815, For 1 dose traZODone hydrochloride 50 m g oral tablet (1 source) Serotonin Reuptake Inhibitor Start: 10-17-2024 End: 10-19-2024 Problems Problem Classification Problem Date Documented Date Episodic/Chronic Appendicitis and other appendiceal conditions (19 sources) Acute appendicitis; Translations: [Other acute appendicitis without perforation or gangrene] Onset: 10-11-2024 10-11-2024 Episodic Essential hypertension (5 sources) Hypertensive disorder; Translations: [Essential (primary) hypertension] Onset: 11-14-2024 11-14-2024 Chronic Residual codes; unclassified (1 source) Acquired absence of other specified parts of digestive tract; Translations: [Other postprocedural status] 12-12-2024 Episodic Results Test Name Value Interpretation Reference Range Facility Absolute lymphocyte countOrd ered By: Bashir Cleary on 03-22-2025 Lymphocytes Auto (Unsp spec) [#/Vol] 1.58 10*3/uL 0.83-4.51 [facility] Absolute neutrophil countOrd ered By: Bashirdamon Cleary on 03-22-2025 Neutrophils (Bld) [#/Vol] 4.3 10*3/uL 2.0-7.7 [facility] Anion gap in Serum or Plasma Ordered By: Bashir Cleary on 03-22-2025 Anion gap [Moles/Vol] 12 mmol/L 5- [facility] Automated lymphocyte count a s percentage of total leukocytesOrdered By: [place] Evin on 03-22-2025 Lymphocytes/100 WBC Auto (Unsp spec) 22.7 % - [facility] BUN/creatinine [facility]Ordered By: [facility] Urea nitrogen/Creatinine [Mass ratio] 14.7 mg/mg 10-20 [facility] Basophil percentageOrdered B y: Bashir Cleary on 03-22-2025 Basophils/100 WBC (Bld) 1.0 % 0-1 [facility] Bilirubin, totalOrdered By: Bashir Cleary on 03-22-2025 Bilirubin [Mass/Vol] 0.39 mg/dL 0.00-1.30 [facility] CBC W/Diff, Automatedon 03-01 Absolute Lymph 1.58 X10 3/uL Normal 0.83-4.51 [facility] Comment on above: Performed By: #### L 500.4100, L501.9985, L501.9910, L500.4050, L100.0100 #### [facility] [address] [place], [address] Absolute Neut 4.3 X10 3/uL Normal 2.0-7.7 [facility] Comment on above: Performed By: #### L 500.4100, [id number], L501.9910, L500.4050, L100.0100 #### [facility] [address] [place], [address] Basophils/100 WBC (Bld) 1.0 % Normal 0-1 [facility] Comment on above: Performed By: #### L 500.4100, [id number], L501.9910, L500.4050, L100.0100 #### [facility] [address] [place], [address] Eosinophils/100 WBC (Bld) 1.9 % Normal 0-5 [facility] Comment on above: Performed By: #### L 500.4100, [id number], L501.9910, L500.4050, L100.0100 #### [facility] [address] [place], [address] Erythrocyte distribution width (RBC) [Ratio] 13.2 % Normal 11.6-14.6 [facility] Comment on above: Performed By: #### L 500.4100, [id number], L501.9910, L500.4050, L100.0100 #### [facility] [address] [place], [address] Hematocrit (Bld) [Volume fraction] 38.0 % Low 40-54 [facility] Comment on above: Performed By: #### L 500.4100, [id number], L501.9910, L500.4050, L100.0100 #### [facility] [address] [place], [address] Hemoglobin (Bld) [Mass/Vol] 12.8 g/dL Low 13.0-16.5 [facility] Comment on above: Performed By: #### L 500.4100, [id number], L501.9910, L500.4050, L100.0100 #### [facility] [address] [place], [address] IG% 0.600 Normal 0.0-0.9 [facility] Comment on above: Result Comment: IG% - Immature Granulocytes (promyelocytes, myelocytes and metamyelocytes) > 1% indicates that a LEFT SHIFT is Present. Performed By: #### L 500.4100, L501.9985, L501.9910, L500.4050, L100.0100 #### [facility] [address] [place], [address] Lymphocytes/100 WBC (Bld) 22.7 % Normal 19-41 [facility] Comment on above: Performed By: #### L 500.4100, [id number], L501.9910, L500.4050, L100.0100 #### [facility] [address] [place], [address] MCH (RBC) [Entitic mass] 31.8 pg Normal 27.0-32.0 [facility] Comment on above: Performed By: #### L 500.4100, [id number], L501.9910, L500.4050, L100.0100 #### [facility] [address] [place], [address] MCHC (RBC) [Mass/Vol] 33.7 g/dL Normal 32-36 [facility] Comment on above: Performed By: #### L 500.4100, [id number], L501.9910, L500.4050, L100.0100 #### [facility] [address] [place], [address] MCV (RBC) [Entitic vol] 94.3 fL High 80-94 [facility] Comment on above: Performed By: #### L 500.4100, [id number], L501.9910, L500.4050, L100.0100 #### [facility] [address] [place], [address] Monocytes/100 WBC (Bld) 12.5 % High 0-10 [facility] Comment on above: Performed By: #### L 500.4100, [id number], L501.9910, L500.4050, L100.0100 #### [facility] [address] [place], [address] Neutrophils/100 WBC (Bld) 61.3 % Normal 47-70 [facility] Comment on above: Performed By: #### L 500.4100, [id number], L501.9910, L500.4050, L100.0100 #### [facility] [address] [place], [address] Nucleated RBC (Bld) [#/Vol] 0 10*3/uL Normal 0-5 [facility] Comment on above: Performed By: #### L 500.4100, [id number], L501.9910, L500.4050, L100.0100 #### [facility] [address] [place], [address] Platelet mean volume (Bld) [Entitic vol] 10.8 fL Normal 6.2-12.0 [facility] Comment on above: Performed By: #### L 500.4100, L501.9985, L501.9910, L500.4050, L100.0100 #### [facility] [address] [place], [address] Platelets (Bld) [#/Vol] 211 10*3/uL Normal 150-450 [facility] Comment on above: Performed By: #### L 500.4100, [id number], L501.9910, L500.4050, L100.0100 #### [facility] [address] [place], [address] RBC (Bld) [#/Vol] 4.03 10*6/uL Low 4.6-6.2 [facility] Comment on above: Performed By: #### L 500.4100, [id number], L501.9910, L500.4050, L100.0100 #### [facility] [address] [place], [address] RDW SD 45.3 fl High 35.1-43.9 [facility] Comment on above: Performed By: #### L 500.4100, [id number], L501.9910, L500.4050, L100.0100 #### [facility] [address] [place], [address] WBC (Bld) [#/Vol] 7.0 10*3/uL Normal 4.4-11.0 [facility] Comment on above: Performed By: #### L 500.4100, [id number], L501.9910, L500.4050, L100.0100 #### [facility] [address] [place], [address] Calculated very low density lipoprotein (VLDL) cholesterol measurementOrdered By: Bashir Cleary on 03-22-2025 Calculated very low density lipoprotein (VLDL) cholesterol measurement 25 mg/dL 5-40 [facility] Carbon dioxide, total [Moles /volume] in Central venous bloodOrdered By: Bashir Cleary on 03-22-2025 CO2 [Moles/Vol] 24.6 mmol/L 21.0-32.0 [facility] Chloride assayOrdered By: Ra lea Cleary on 03-22-2025 Chloride [Moles/Vol] 101 mmol/L 98-108 [facility] Comprehensive Metabolic Prof ilon 03-22-2025 Albumin [Mass/Vol] 4.0 g/dL Normal 3.4-4.8 [facility] Comment on above: Performed By: #### L 500.4100, L501.9985, L501.9910, L500.4050, L100.0100 #### [facility] [address] [place], [address] Albumin/Globulin [Mass ratio] 1.3 {ratio} Normal 0.9-2.4 [facility] Comment on above: Performed By: #### L 500.4100, L501.9985, L501.9910, L500.4050, L100.0100 #### [facility] [address] [place], [address] ALK PHOS 77 U/L Normal 40-129 [facility] Comment on above: Performed By: #### L 500.4100, L501.9985, L501.9910, L500.4050, L100.0100 #### [facility] [address] [place], [address] ALT [Catalytic activity/Vol] 16 U/L Normal <=46 [facility] Comment on above: Performed By: #### L 500.4100, L501.9985, L501.9910, L500.4050, L100.0100 #### [facility] [address] [place], [address] AST [Catalytic activity/Vol] 19 U/L Normal <=37 [facility] Comment on above: Performed By: #### L 500.4100, L501.9985, L501.9910, L500.4050, L100.0100 #### [facility] [address] [place], [address] Bilirubin [Mass/Vol] 0.39 mg/dL Normal 0.00-1.30 [facility] Comment on above: Performed By: #### L 500.4100, L501.9985, L501.9910, L500.4050, L100.0100 #### [facility] [address] [place], [address] BUN/CRE 14.7 RATIO Normal 10-20 [facility] Comment on above: Performed By: #### L 500.4100, L501.9985, L501.9910, L500.4050, L100.0100 #### [facility] [address] [place], [address] Calcium [Mass/Vol] 9.7 mg/dL Normal 7.6-11.0 [facility] Comment on above: Performed By: #### L 500.4100, L501.9985, L501.9910, L500.4050, L100.0100 #### [facility] [address] [place], [address] Chloride [Moles/Vol] 101 mmol/L Normal 98-108 [facility] Comment on above: Performed By: #### L 500.4100, L501.9985, L501.9910, L500.4050, L100.0100 #### [facility] [address] [place], [address] CO2 [Moles/Vol] 24.6 mmol/L Normal 21.0-32.0 [facility] Comment on above: Performed By: #### L 500.4100, L501.9985, L501.9910, L500.4050, L100.0100 #### [facility] [address] [place], [address] Creatinine [Mass/Vol] 0.93 mg/dL Normal 0.70-1.20 [facility] Comment on above: Performed By: #### L 500.4100, L501.9985, L501.9910, L500.4050, L100.0100 #### [facility] [address] [place], [address] GAP 12 Normal 5-15 [facility] Comment on above: Performed By: #### L 500.4100, L501.9985, L501.9910, L500.4050, L100.0100 #### [facility] [address] [place], [address] GFR/1.73 sq M.predicted among non-blacks MDRD (S/P/Bld) [Vol rate/Area] 88 mL/min/{1.73_m2} Normal >60 [facility] Comment on above: Result Comment: mL/m in/1.73m2 CKD-EPI Creatinine Equation (2020) Performed By: #### L 500.4100, L501.9985, L501.9910, L500.4050, L100.0100 #### [facility] [address] [place], [address] Globulin (S) [Mass/Vol] 3.2 g/dL Normal 2.2-4.2 [facility] [place] Comment on above: Performed By: #### L 500.4100, L501.9985, L501.9910, L500.4050, L100.0100 #### [facility] [address] [place], [address] Glucose [Mass/Vol] 96 mg/dL Normal 70-99 [facility] Comment on above: Performed By: #### L 500.4100, L501.9985, L501.9910, L500.4050, L100.0100 #### [facility] [address] [place], [address] Potassium [Moles/Vol] 3.8 mmol/L Normal 3.3-5.1 [facility] Comment on above: Performed By: #### L 500.4100, L501.9985, L501.9910, L500.4050, L100.0100 #### [facility] [address] [place], [address] Sodium [Moles/Vol] 138 mmol/L Normal 133-145 [facility] Comment on above: Performed By: #### L 500.4100, L501.9985, L501.9910, L500.4050, L100.0100 #### [facility] [address] [place], [address] T PROT 7.2 g/dL Normal 5.9-8.4 [facility] Comment on above: Performed By: #### L 500.4100, L501.9985, L501.9910, L500.4050, L100.0100 #### [facility] [address] [place], [address] Urea nitrogen [Mass/Vol] 14 mg/dL Normal 4-19 [facility] Comment on above: Performed By: #### L 500.4100, L501.9985, L501.9910, L500.4050, L100.0100 #### [facility] [address] [place], [address] Eosinophil percentageOrdered By: Bashir Cleary on 03-22-2025 Eosinophils/100 WBC (Bld) 1.9 % 0-5 [facility] Erythrocyte distribution wid th ratioOrdered By: Bashir Cleary on 03-22-2025 Erythrocyte distribution width (RBC) [Ratio] 13.2 % 11.6-14.6 [facility] Erythrocyte distribution wid th standard deviationOrdered By: Bashir Cleary on 03-22-2025 Erythrocyte distribution width (RBC) [Ratio] 45.3 fl High 35.1-43.9 [facility] Glomerular filtration rate ( GFR) estimation/1.73 sq m using serum, plasma, or whole bOrdered By: Bashir Cleary on 03-22-2025 GFR/1.73 sq M.predicted among non-blacks MDRD (S/P/Bld) [Vol rate/Area] 88 mL/min/{1.73_m2} >60 [facility] Comment on above: mL/min/1.73m2 CKD-EP I Creatinine Equation (2020) Hematocrit Auto (Bld) [Volum e fraction]Ordered By: Bashir Cleary on 03-22-2025 Hematocrit (Bld) [Volume fraction] 38.0 % Low 40-54 [facility] Hemoglobin A1con 03-22-2025 HbA1c (Bld) [Mass fraction] 6.0 % High <=5.6 [facility] Comment on above: Result Comment: Norm al < 5.7 % Prediabetic 5.7 - 6.4 % Diabetic >or= 6.5 % Please note range changes. Performed By: #### L 500.4100, L501.9985, L501.9910, L500.4050, L100.0100 #### [facility] [place], [address] Hemoglobin A1c percentageOrd ered By: Bashir Cleary on 03-22-2025 HbA1c (Bld) [Mass fraction] 6.0 % High <5.7 [facility] Comment on above: Normal < 5.7 % Predi abetic 5.7 - 6.4 % Diabetic >or= 6.5 % Please note range changes. Hemoglobin measurementOrdere d By: Bashir Cleary on 03-22-2025 Hemoglobin (Bld) [Mass/Vol] 12.8 g/dL Low 13.0-16.5 [facility] Immature granulocytes/100 WB C Auto (Bld)Ordered By: Bashir Cleary on 03-22-2025 Immature granulocytes/100 WBC (Bld) 0.600 % 0.0-0.9 [facility] Comment on above: IG% - Immature Granu locytes (promyelocytes, myelocytes and metamyelocytes) > 1% indicates that a LEFT SHIFT is Present. LDL calc ser/plasOrdered By: Bashir Cleary on 03-22-2025 Cholesterol in LDL [Mass/Vol] 127 mg/dL [facility] Comment on above: Jjdbnfggpi=603-398 m g/dL & Higher Dans=252 mg/dL or greater Laboratory - Chemistry and C hemistry - challengeOrdered By: Bashir Cleary on 03-22-2025 AST [Catalytic activity/Vol] 19 U/L <38 [facility] Lipid Profileon 03-22-2025 CHOL:HDL 4.08 Normal [facility] Comment on above: Performed By: #### L 500.4100, L501.9985, L501.9910, L500.4050, L100.0100 #### [facility] [address] [facility] [place], [address] Cholesterol [Mass/Vol] 202 mg/dL High <=200 [facility] Comment on above: Result Comment: Chol esterol level, Desirable <200 mg/dL Borderline high cholesterol 200-239 mg/dL High cholesterol >=240 mg/dL Recommendations of the NCEP Adult Treatment Panel for the following risk-cutoff thresholds for the [place] population. Performed By: #### L 500.4100, L501.9985, L501.9910, L500.4050, L100.0100 #### [facility] [address] [place], [address] Cholesterol in HDL [Mass/Vol] 50 mg/dL Normal [facility] Comment on above: Result Comment: Rosalba onal Cholesterol Education Program (NCEP) guidelines: <40 mg/dL: Low HDL-cholesterol (major risk factor for CHD) >= 60 mg/dL: High HDL-cholesterol (negative risk factor for CHD) HDL-cholesterol is affected by a number of factors, e.g. smoking, exercise, hormones, sex and age. Performed By: #### L 500.4100, L501.9985, L501.9910, L500.4050, L100.0100 #### [facility] [address] [place], [address] Cholesterol in LDL [Mass/Vol] 127 mg/dL Normal [facility] Comment on above: Result Comment: Bord ixkovt=357-252 mg/dL Higher Ltbk=174 mg/dL or greater Performed By: #### L 500.4100, L501.9985, L501.9910, L500.4050, L100.0100 #### [facility] [address] [place], [address] Cholesterol in VLDL [Mass/Vol] 25 mg/dL Normal 5-40 [facility] Comment on above: Performed By: #### L 500.4100, L501.9985, L501.9910, L500.4050, L100.0100 #### [facility] [address] [place], [address] Triglyceride [Mass/Vol] 127 mg/dL Normal [facility] [place] Comment on above: Result Comment: The drugs N-Acetylcysteine and Metamizole may falsely depress this assay. Normal range: <150 mg/dL Borderline High: 150-199 mg/dL High: 200-499 mg/dL Very High: >500 mg/dL Performed By: #### L 500.4100, L501.9985, L501.9910, L500.4050, L100.0100 #### [facility] [address] [place], [address] MCV (mean corpuscular volume ) determinationOrdered By: Bashir Cleary on 03-22-2025 MCV (RBC) [Entitic vol] 94.3 fL High 80-94 [facility] Mean corpuscular hemoglobin (MCH) determinationOrdered By: Bashir Cleary on 03-22-2025 MCH (RBC) [Entitic mass] 31.8 pg 27.0-32.0 [facility] Mean corpuscular hemoglobin concentration (MCHC) determinationOrdered By: Bashir Cleary on 03-22-2025 MCHC (RBC) [Mass/Vol] 33.7 g/dL 32-36 [facility] Mean platelet volume determi nationOrdered By: Bashir Cleary on 03-22-2025 Platelet mean volume (Bld) [Entitic vol] 10.8 fL 6.2-12.0 [facility] Monocyte percentageOrdered B y: Bashir Cleary on 03-22-2025 Monocytes/100 WBC (Bld) 12.5 % High 0-10 [facility] Neutrophil percentageOrdered By: Bashir Cleary on 03-22-2025 Neutrophils/100 WBC (Bld) 61.3 % 47-70 [facility] Nucleated red blood cell per centageOrdered By: Bashir Cleary on 03-22-2025 Nucleated RBC/100 WBC (Bld) [Ratio] 0 % 0-5 [facility] PSA,Total - Annual Screenon 03-22-2025 PSA,TOT SCREEN 8.50 ng/mL High 0.02-4.00 [facility] Comment on above: Result Comment: This test was performed using the [employer] tPSA method. Measured values of a patient??sample can vary depending on the testing procedure used. PSA values determined on patient samples by different testing procedures cannot be used interchangeably. If there is a change in PSA assays while monitoring therapy, sequential testing should be performed to confirm baseline values. Performed By: #### L 500.4100, L501.9985, L501.9910, L500.4050, L100.0100 #### [facility] [address] [place], [address] Platelet countOrdered By: Ra lea Cleary on 03-22-2025 Platelets (Bld) [#/Vol] 211 10*3/uL 150-450 [facility] Potassium measurement (mass/ volume)Ordered By: Bashir Cleary on 03-22-2025 Potassium (Unsp spec) [Mass/Vol] 3.8 mmol/L 3.3-5.1 [facility] RBC Auto (Bld) [#/Vol]Ordere d By: Bashir Cleary on 03-22-2025 RBC (Bld) [#/Vol] 4.03 10*6/uL Low 4.6-6.2 [facility] Screening total cholesterol/ high density lipoprotein (HDL) cholesterol ratioOrdered By: Bashir Cleary on 03-22-2025 Cholesterol.total/Cassie sterol in HDL [Mass ratio] 4.08 {ratio} [facility] Serum creatinine measurement (mass/volume)Ordered By: Bashir Cleary on 03-22-2025 Creatinine [Mass/Vol] 0.93 mg/dL 0.70-1.20 [facility] Serum globulin measurementOr dered By: Bashir Cleary on 03-22-2025 Globulin (S) [Mass/Vol] 3.2 g/dL 2.2-4.2 [facility] Serum glucose measurement (m ass/volume)Ordered By: Bashir Cleary on 03-22-2025 Glucose [Mass/Vol] 96 mg/dL 70-99 [facility] Serum or plasma alanine de otransferase (ALT) measurementOrdered By: Bashir Cleary on 03-22-2025 ALT [Catalytic activity/Vol] 16 U/L <47 [facility] Serum or plasma albumin addy urement (mass/volume)Ordered By: Bashir Cleary on 03-22-2025 Albumin [Mass/Vol] 4.0 g/dL 3.4-4.8 [facility] Serum or plasma albumin/glob ulin mass ratioOrdered By: Bashir Cleary on 03-22-2025 Albumin/Globulin [Mass ratio] 1.3 {ratio} 0.9-2.4 [facility] Serum or plasma alkaline robert sphatase measurementOrdered By: Bashir Cleary on 03-22-2025 ALP [Catalytic activity/Vol] 77 U/L 40-129 [facility] Serum or plasma calcium addy urement (mass/volume)Ordered By: Bashir Cleary on 03-22-2025 Calcium [Mass/Vol] 9.7 mg/dL 7.6-11.0 [facility] Serum or plasma cholesterol in HDL measurement (mass/volume)Ordered By: Bashir Cleary on 03-22-2025 Cholesterol in HDL [Mass/Vol] 50 mg/dL >40 [facility] Comment on above: National Cholesterol Education Program (NCEP) guidelines:<40 mg/dL: Low HDL-cholesterol (major risk factor for CHD)>= 60 mg/dL: High HDL-cholesterol (negative risk factor for CHD)HDL-cholesterol is affected by a number of factors, e.g. smoking, exercise, hormones, sex and age. Serum or plasma cholesterol measurement (mass/volume)Ordered By: Bashir Cleary on 03-22-2025 Cholesterol [Mass/Vol] 202 mg/dL High <201 [facility] Comment on above: Cholesterol level, D esirable <200 mg/dLBorderline high cholesterol 200-239 mg/dLHigh cholesterol >=240 mg/dLRecommendations of the NCEP Adult Treatment Panel for the following risk-cutoff thresholds for the [place] population. Serum or plasma urea nitroge n measurement (mass/volume)Ordered By: Bashir Cleary on 03-22-2025 Urea nitrogen [Mass/Vol] 14 mg/dL 4-19 [facility] Sodium levelOrdered By: Alissa Cleary on 03-22-2025 Sodium [Moles/Vol] 138 mmol/L 133-145 [facility] Total proteinOrdered By: Sylvia Cleary on 03-22-2025 Protein [Mass/Vol] 7.2 g/dL 5.9-8.4 [facility] Triglycerides measurementOrd ered By: Bashir Cleary on 03-22-2025 Triglyceride [Mass/Vol] 127 mg/dL <199 [facility] Comment on above: The drugs N-Acetylcy steine and Metamizole may falsely depress this assay. Normal range: <150 mg/dLBorderline High: 150-199 mg/dLHigh: 200-499 mg/dLVery High: >500 mg/dL White blood cell (WBC) count Ordered By: Bashir Cleary on 03-22-2025 WBC (Bld) [#/Vol] 7.0 10*3/uL 4.4-11.0 [facility] OP NOTEon 11-23-2024 OP NOTE DEBORAHSOFYA [id number] 1955 DATE 11/23/2024 OPERATIVE REPORT SURGEON FACUNDO WOODS MD PREOPERATIVE DIAGNOSIS History of perforated appendicitis, status post CT-guided drain placement. POSTOPERATIVE DIAGNOSIS History of perforated appendicitis, status post CT-guided drain placement. PROCEDURE Robotic appendectomy, lysis of adhesions, and drainage of intraabdominal abscess. ANESTHESIA General endotracheal. ESTIMATED BLOOD LOSS Minimal. SPECIMENS Appendix. COMPLICATIONS None apparent. HISTORY OF PRESENT ILLNESS The patient is a 68-year-old male. Recently he had a perforated appendicitis. He was initially admitted at [facility] October 11 through October 17 with perforated appendicitis. He had an elevated leukocytosis, so he underwent CT that demonstrated an abscess. He was transferred here for interventional radiology and underwent CT-guided drain placement on October 18. He was able to be discharged, had resolution of symptoms. The drain was removed in the office and we discussed interval appendectomy. We discussed details of the procedure, rationale, potential risks, benefits, and alternatives, and he is agreeable to proceed. DESCRIPTION OF PROCEDURE Patient was brought to the operating room. General endotracheal anesthesia was induced. SCDs were on and functioning. He received preoperative antibiotics. Bilateral arms were tucked. Rios catheter was placed by the nursing staff with return of clear yellow urine. The abdomen was prepped and draped in usual sterile manner. Time-out was performed to confirm correct patient and procedure. We anesthetized skin and subcutaneous tissue in the left subcostal position using 0.25% Marcaine. Transverse incision was made using a #11 blade scalpel. Direct entry into the peritoneal cavity was obtained using the Optiview obturator. Abdomen was insufflated with carbon dioxide. Visual inspection confirmed no injury from the entrance. He has significant adhesions to the anterior abdominal wall in the lower abdomen. I placed 2 additional robotic trocars in a line on the left side of the abdomen under direct visualization after instilling local anesthetic. I then began teasing adhesions down from the anterior abdominal wall in the left lower quadrant to place my 4th robotic trocar. When this was completed, I turned the patient into steep Trendelenburg position. Right side was rotated up. The robot was then docked. I spent the next hour performing adhesiolysis as there were multiple loops of bowel adhesed to the anterior abdominal wall as well as omentum covering the right lower quadrant and appendix. After an hour of adhesiolysis, I was able to visualize the base of the appendix. It was elevated and I took down the mesoappendix using the fenestrated bipolar pace. The base of the appendix was then transected using a robotic JUSTINE stapler 45 mm with a vascular load. Staple line was intact upon completion. Specimen was then placed in the upper abdomen. In between multiple loops of small bowel, there were several small fluid collections that were evacuated using suction ob nurse. Lysis of adhesions was performed sharply as well as using blunt dissection with the suction ob nurse. When this was all completed, I was able to follow the small bowel from the terminal ileum and ileocecal valve proximally, taking all of the interloop adhesions down using sharp dissection. I continued proximally, dissecting the omentum off the small bowel until it was all free. When this was completed, specimen was placed within an EndoCatch bag. The robot was then undocked. The abdomen was then desufflated. The specimen was removed from the abdominal cavity. The 12 mm trocar fascial site was closed using a 0 Vicryl in a [id number] fashion. All the remainder of the local anesthetic was injected. The surgical sites were then closed using skin iftikhar. Counts were correct x2 prior to completion of the procedure. He tolerated the procedure well without any apparent complications, able to be extubated, transferred to the recovery room in stable condition. FACUNDO WOODS MD D 11/23/2024 09:57 [id number] T 11/23/2024 10:33 REJI/ROXANAL cc: BASHIR CLEARY CNP AUTHENTICATED BY FACUNDO WOODS, ON 11/23/2024 11:12:06 Normal [facility] TISSUE EXAMon 11-23-2024 TISSUE EXAM Surgical Pathology Report Case: [id number] Authorizing Provider: Facundo Woods MD Collected: 11/23/2024 09:05 AM Ordering Location: [facility] Periop Received: 11/23/2024 10:12 AM Pathologist: Anjali Chester MD Specimen: Appendix A. Appendix, appendectomy: Interval appendicitis with serosal adhesions and focal organizing periappendiceal abscess. Unremarkable lymph node. Perforated appendicitis [K35.32] A. The specimen is received in formalin, designated appendix, and consists of an intact appendix measuring 5.3 cm in length and averaging 0.8 cm in diameter. Attached mesoappendix measures 4 x 1 cm. There is a stapled suture line present at the proximal line of resection. Upon transection the lumen is slightly dilated and filled with brown fecal material. No evidence of fecalith or tumor is identified. Oyster Farmer sections are submitted in 2 cassettes as follows: Block 1 section of the distal tip and a section adjacent to iftikhar business banking representative proximal margin. Block 2 random sections. KishaK Gross examination performed at: [facility] - [address] [place] [id number] Microscopic examination is performed. Normal [facility] Comment on above: Performed By: #### [id number] #### LAB [address] [place] [address] Abelino To M.D. [id number] BASIC METABOLIC PANELon 10-31 Anion gap [Moles/Vol] 14 mmol/L Normal 10-[address] [facility] Comment on above: Order Comment: Injur y/Trauma or Illness?:Illness/Other How long have you had these symptoms (acute/chronic)?:Acute Reason for exam?:Known perforated appendix. Known prior abscess on imaging. No imaging available. Repeating to facilitate source control Type of Exam?:Initial Additional signs and symptoms?:order w AND w/o per provider Performed By: #### 4 [id number] #### LAB [address] [place] [address] Abelino To M.D. [id number] Calcium [Mass/Vol] 9.8 mg/dL Normal 8.4-10.2 [facility] Comment on above: Order Comment: Injur y/Trauma or Illness?:Illness/Other How long have you had these symptoms (acute/chronic)?:Acute Reason for exam?:Known perforated appendix. Known prior abscess on imaging. No imaging available. Repeating to facilitate source control Type of Exam?:Initial Additional signs and symptoms?:order w AND w/o per provider Performed By: #### 4 [id number] #### LAB [address] [place] [address] Abelino To M.D. [id number] Chloride [Moles/Vol] 100 mmol/L Normal 98-108 [facility] Comment on above: Order Comment: Injur y/Trauma or Illness?:Illness/Other How long have you had these symptoms (acute/chronic)?:Acute Reason for exam?:Known perforated appendix. Known prior abscess on imaging. No imaging available. Repeating to facilitate source control Type of Exam?:Initial Additional signs and symptoms?:order w AND w/o per provider Performed By: #### 4 [id number] #### LAB [address] [place], [place] [address] Abelino To M.D. [id number] Creatinine [Mass/Vol] 0.92 mg/dL Normal 0.80-1.[address] [facility] Comment on above: Order Comment: Injur y/Trauma or Illness?:Illness/Other How long have you had these symptoms (acute/chronic)?:Acute Reason for exam?:Known perforated appendix. Known prior abscess on imaging. No imaging available. Repeating to facilitate source control Type of Exam?:Initial Additional signs and symptoms?:order w AND w/o per provider Performed By: #### 4 6129 #### LAB [address] [place] [address] Abelino To M.D. [id number] EGFR 90 mL/min/1.73 m2 Normal >=60 [facility] Comment on above: Order Comment: Injur y/Trauma or Illness?:Illness/Other How long have you had these symptoms (acute/chronic)?:Acute Reason for exam?:Known perforated appendix. Known prior abscess on imaging. No imaging available. Repeating to facilitate source control Type of Exam?:Initial Additional signs and symptoms?:order w AND w/o per provider Result Comment: Jeremie mated GFR was calculated using the 2020 CKD-EPI creatinine equation. Performed By: #### 4 [id number] #### LAB [address] [address] Abel[address] To M.D. [id number] Glucose [Mass/Vol] 104 mg/dL High 65-99 [facility] Comment on above: Order Comment: Injur y/Trauma or Illness?:Illness/Other How long have you had these symptoms (acute/chronic)?:Acute Reason for exam?:Known perforated appendix. Known prior abscess on imaging. No imaging available. Repeating to facilitate source control Type of Exam?:Initial Additional signs and symptoms?:order w AND w/o per provider Performed By: #### 4 6124 #### LAB [address] [address] Abelino To M.D. [id number] HCO3 (Bld) [Moles/Vol] 26 mmol/L Normal 21-32 [facility] Comment on above: Order Comment: Injur y/Trauma or Illness?:Illness/Other How long have you had these symptoms (acute/chronic)?:Acute Reason for exam?:Known perforated appendix. Known prior abscess on imaging. No imaging available. Repeating to facilitate source control Type of Exam?:Initial Additional signs and symptoms?:order w AND w/o per provider Performed By: #### 4 6124 #### LAB [address] [address] Abelino To M.D. [id number] Potassium [Moles/Vol] 4.2 mmol/L Normal 3.5-5.[address] [facility] Comment on above: Order Comment: Injur y/Trauma or Illness?:Illness/Other How long have you had these symptoms (acute/chronic)?:Acute Reason for exam?:Known perforated appendix. Known prior abscess on imaging. No imaging available. Repeating to facilitate source control Type of Exam?:Initial Additional signs and symptoms?:order w AND w/o per provider Performed By: #### 4 6124 #### LAB [address] [address] Abelino To M.D. [id number] Sodium [Moles/Vol] 136 mmol/L Normal 135-145 [facility] Comment on above: Order Comment: Injur y/Trauma or Illness?:Illness/Other How long have you had these symptoms (acute/chronic)?:Acute Reason for exam?:Known perforated appendix. Known prior abscess on imaging. No imaging available. Repeating to facilitate source control Type of Exam?:Initial Additional signs and symptoms?:order w AND w/o per provider Performed By: #### 4 6124 #### LAB [address] [address] Abelino To M.D. [id number] Urea nitrogen [Mass/Vol] 13 mg/dL Normal 8-25 [facility] Comment on above: Order Comment: Injur y/Trauma or Illness?:Illness/Other How long have you had these symptoms (acute/chronic)?:Acute Reason for exam?:Known perforated appendix. Known prior abscess on imaging. No imaging available. Repeating to facilitate source control Type of Exam?:Initial Additional signs and symptoms?:order w AND w/o per provider Performed By: #### 4 6124 #### LAB [address] [address] Abelino To M.D. [id number] Urea nitrogen/Creatinine [Mass ratio] 14.1 mg/mg Normal 10.0-20.0 [facility] Comment on above: Order Comment: Injur y/Trauma or Illness?:Illness/Other How long have you had these symptoms (acute/chronic)?:Acute Reason for exam?:Known perforated appendix. Known prior abscess on imaging. No imaging available. Repeating to facilitate source control Type of Exam?:Initial Additional signs and symptoms?:order w AND w/o per provider Performed By: #### 4 6124 #### LAB [address] [address] Abelino To M.D. [id number] BASIC METABOLIC PANELon 12-2 -2023 Anion gap [Moles/Vol] 16 mmol/L Normal 10-[address] [facility] Comment on above: Order Comment: Injur y/Trauma or Illness?:Illness/Other How long have you had these symptoms (acute/chronic)?:Acute Reason for exam?:Known perforated appendix. Known prior abscess on imaging. No imaging available. Repeating to facilitate source control Type of Exam?:Initial Additional signs and symptoms?:order w AND w/o per provider Performed By: #### 4 6124 #### LAB [address] [address] Abelino To M.D. [id number] Calcium [Mass/Vol] 8.7 mg/dL Normal 8.4-10.2 [facility] Comment on above: Order Comment: Injur y/Trauma or Illness?:Illness/Other How long have you had these symptoms (acute/chronic)?:Acute Reason for exam?:Known perforated appendix. Known prior abscess on imaging. No imaging available. Repeating to facilitate source control Type of Exam?:Initial Additional signs and symptoms?:order w AND w/o per provider Performed By: #### 4 6126 #### LAB [address] [address] Abelino To M.D. [id number] Chloride [Moles/Vol] 100 mmol/L Normal 98-108 [facility] Comment on above: Order Comment: Injur y/Trauma or Illness?:Illness/Other How long have you had these symptoms (acute/chronic)?:Acute Reason for exam?:Known perforated appendix. Known prior abscess on imaging. No imaging available. Repeating to facilitate source control Type of Exam?:Initial Additional signs and symptoms?:order w AND w/o per provider Performed By: #### 4 6124 #### LAB [address] [address] Abelino To M.D. [id number] Creatinine [Mass/Vol] 1.24 mg/dL Normal 0.80-1.[address] [facility] Comment on above: Order Comment: Injur y/Trauma or Illness?:Illness/Other How long have you had these symptoms (acute/chronic)?:Acute Reason for exam?:Known perforated appendix. Known prior abscess on imaging. No imaging available. Repeating to facilitate source control Type of Exam?:Initial Additional signs and symptoms?:order w AND w/o per provider Performed By: #### 4 6124 #### LAB [address] [address] Abelino To M.D. [id number] EGFR 63 mL/min/1.73 m2 Normal >=60 [facility] Comment on above: Order Comment: Injur y/Trauma or Illness?:Illness/Other How long have you had these symptoms (acute/chronic)?:Acute Reason for exam?:Known perforated appendix. Known prior abscess on imaging. No imaging available. Repeating to facilitate source control Type of Exam?:Initial Additional signs and symptoms?:order w AND w/o per provider Result Comment: Jeremie mated GFR was calculated using the 2020 CKD-EPI creatinine equation. Performed By: #### 4 6170 #### LAB [address] [address] Abelino To M.D. [id number] Glucose [Mass/Vol] 103 mg/dL High 65-99 [facility] Comment on above: Order Comment: Injur y/Trauma or Illness?:Illness/Other How long have you had these symptoms (acute/chronic)?:Acute Reason for exam?:Known perforated appendix. Known prior abscess on imaging. No imaging available. Repeating to facilitate source control Type of Exam?:Initial Additional signs and symptoms?:order w AND w/o per provider Performed By: #### 4 6124 #### LAB [address] [address] Abelino To M.D. [id number] HCO3 (Bld) [Moles/Vol] 22 mmol/L Normal 21-32 [facility] Comment on above: Order Comment: Injur y/Trauma or Illness?:Illness/Other How long have you had these symptoms (acute/chronic)?:Acute Reason for exam?:Known perforated appendix. Known prior abscess on imaging. No imaging available. Repeating to facilitate source control Type of Exam?:Initial Additional signs and symptoms?:order w AND w/o per provider Performed By: #### 4 6124 ####[facility] LAB [address] [address] Abelino To M.D. [id number] Potassium [Moles/Vol] 4.3 mmol/L Normal 3.5-5.[address] [facility] Comment on above: Order Comment: Injur y/Trauma or Illness?:Illness/Other How long have you had these symptoms (acute/chronic)?:Acute Reason for exam?:Known perforated appendix. Known prior abscess on imaging. No imaging available. Repeating to facilitate source control Type of Exam?:Initial Additional signs and symptoms?:order w AND w/o per provider Performed By: #### 4 6119 #### LAB [address] [address] Abelino To M.D. [id number] Sodium [Moles/Vol] 134 mmol/L Low 135-145 [facility] Comment on above: Order Comment: Injur y/Trauma or Illness?:Illness/Other How long have you had these symptoms (acute/chronic)?:Acute Reason for exam?:Known perforated appendix. Known prior abscess on imaging. No imaging available. Repeating to facilitate source control Type of Exam?:Initial Additional signs and symptoms?:order w AND w/o per provider Performed By: #### 4 6124 #### LAB [address] [address] Abelino To M.D. [id number] Urea nitrogen [Mass/Vol] 19 mg/dL Normal 8-25 [facility] Comment on above: Order Comment: Injur y/Trauma or Illness?:Illness/Other How long have you had these symptoms (acute/chronic)?:Acute Reason for exam?:Known perforated appendix. Known prior abscess on imaging. No imaging available. Repeating to facilitate source control Type of Exam?:Initial Additional signs and symptoms?:order w AND w/o per provider Performed By: #### 4 6124 #### LAB [address] [address] Abelino To M.D. [id number] Urea nitrogen/Creatinine [Mass ratio] 15.3 mg/mg Normal 10.0-20.0 [facility] Comment on above: Order Comment: Injur y/Trauma or Illness?:Illness/Other How long have you had these symptoms (acute/chronic)?:Acute Reason for exam?:Known perforated appendix. Known prior abscess on imaging. No imaging available. Repeating to facilitate source control Type of Exam?:Initial Additional signs and symptoms?:order w AND w/o per provider Performed By: #### 4 6124 #### LAB [address] [address] Abelino To M.D. [id number] Basic metabolic 2000 panelon 10-19-2024 Anion gap [Moles/Vol] 16 mmol/L 10 - 2 0 mmol/L [facility] Calcium [Mass/Vol] 8.7 mg/dL 8.4 - 10. 2 mg/dL [facility] Chloride [Moles/Vol] 100 mmol/L 98 - 10 8 mmol/L [facility] Creatinine [Mass/Vol] 1.24 mg/dL 0.80 - 1.30 mg/dL [facility] GFR/1.73 sq M.predicted CKD-EPI (S/P/Bld) [Vol rate/Area] 63 - PINF [facility] Comment on above: Estimated GFR was ca lculated using the 2020 CKD-EPI creatinine equation. Glucose [Mass/Vol] 103 mg/dL High 65 - 99 mg/dL [facility] HCO3 [Moles/Vol] 22 mmol/L 21 - 32 mmol/L [facility] Interpretation and review of laboratory results Abnormal [facility] Potassium [Moles/Vol] 4.3 mmol/L 3.5 - 5.1 mmol/L [facility] Sodium [Moles/Vol] 134 mmol/L Low 135 - 145 mmol/L [facility] Urea nitrogen [Mass/Vol] 19 mg/dL 8 - 25 mg/dL [facility] Urea nitrogen/Creatinine [Mass ratio] 15.3 mg/mg 10.0 - 20.0 [facility] has implemented the eGFR calculation approach that does not have a coefficient for race that conforms to the NKF-ASN Task Force Recommendations. [facility] CBC Auto Differentialon 10-01 Erythrocyte distribution width (RBC) [Entitic vol] 12.4 % 11.6 - 14.8 % [facility] Hematocrit (Bld) [Volume fraction] 36.5 % Low 41.0 - 53.0 % [facility] Hemoglobin (Bld) [Mass/Vol] 11.8 g/dL Low 13.5 - 17.5 g/dL [facility] MCH (RBC) [Entitic mass] 32.1 pg 26.0 - 34.0 pg [facility] MCHC (RBC) [Mass/Vol] 32.3 g/dL 31.0 - 37.0 g/dL [facility] MCV (RBC) [Entitic vol] 99.2 fL 80.0 - 100.0 fL [facility] Nucleated RBC (Bld) [#/Vol] 0 10*3/uL [facility] Nucleated RBC/100 WBC (Bld) [Ratio] 0 % [facility] Platelet mean volume (Bld) [Entitic vol] 9.9 fL 9.4 - 12.4 fL [facility] Platelets (Bld) [#/Vol] 409 10*3/uL High [facility] RBC (Bld) [#/Vol] 3.68 10*6/uL Low [facility] ealth WBC (Bld) [#/Vol] 17.11 10*3/uL [facility] CBC WITH AUTO DIFFERENTIALon 10-19-2024 AUTO NRBC 0.0 % Normal [facility] Comment on above: Performed By: #### L [id number] ####[facility] LAB [address] [address] Abelino To M.D. [id number] AUTO NRBC ABS COUNT 0.00 K/mcL Normal 0.00-0.00 [facility] Comment on above: Performed By: #### L [id number] #### LAB [address] [address] Abelino To M.D. [id number] Erythrocyte distribution width (RBC) [Ratio] 12.4 % Normal 11.6-14.8 [facility] Comment on above: Performed By: #### L [id number] #### LAB [address] [address] Abelino To M.D. [id number] Hematocrit (Bld) [Volume fraction] 36.5 % Low 41.0-53.0 [facility] Comment on above: Performed By: #### L [id number] #### LAB [address] [address] Abelino To M.D. [id number] Hemoglobin (Bld) [Mass/Vol] 11.8 g/dL Low 13.5-17.5 [facility] Comment on above: Performed By: #### L [id number] #### LAB [address] [address] Abelino To M.D. [id number] MCH (RBC) [Entitic mass] 32.1 pg Normal 26.0-34.0 [facility] Comment on above: Performed By: #### L [id number] ####[facility] LAB [address] [address] Abelino To M.D. [id number] MCV (RBC) [Entitic vol] 99.2 fL Normal 80.0-100.0 [facility] Comment on above: Performed By: #### L [id number] #### LAB [address] [address] Abelino oT M.D. [id number] MEAN CORPUSCULAR HEMOGLOBIN CONC 32.3 g/dL Normal 31.0-37.0 [facility] Comment on above: Performed By: #### L [id number] ####[facility] LAB [address] [address] Abelino To M.D. [id number] Platelet mean volume (Bld) [Entitic vol] 9.9 fL Normal 9.4-12.4 [facility] Comment on above: Performed By: #### L [id number] ####[facility] LAB [address] [address] Abelino To M.D. [id number] Platelets (Bld) [#/Vol] 409 10*3/uL High 150-400 [facility] Comment on above: Performed By: #### L [id number] ####[facility] LAB [address] [address] Abelino To M.D. [id number] RBC (Bld) [#/Vol] 3.68 10*6/uL Low 4.50-5.90 [facility] Comment on above: Performed By: #### L [id number] ####[facility] LAB [address] [address] Abelino To M.D. [id number] WBC (Bld) [#/Vol] 17.11 10*3/uL High 4.50-11.00 [facility] Comment on above: Performed By: #### L [id number] #### LAB [address] [address] Abelino To M.D. [id number] CBC and Diff Morphologyon Platelets LM Ql (Bld) Normal Normal [facility] RBC morphology finding Nom (Bld) Normal [facility] Comment on above: RBC Indices confirme d with manual peripheral smear review. HEPATIC FUNCTION PANELon Albumin [Mass/Vol] 3.2 g/dL Normal 3.2-5.2 [facility] Comment on above: Performed By: #### 4 5866 #### LAB [address] [address] Abelino To M.D. [id number] ALP [Catalytic activity/Vol] 57 U/L Normal 40-150 [facility] Comment on above: Performed By: #### 4 5866 #### LAB [address] [address] Abelino To M.D. [id number] ALT [Catalytic activity/Vol] 12 U/L Normal 0-50 U/L [facility] Comment on above: Performed By: #### 4 5866 #### LAB [address] [address] Abelino To M.D. [id number] AST [Catalytic activity/Vol] 17 U/L Normal 0-50 U/L [facility] Comment on above: Performed By: #### 4 5866 #### LAB [address] [address] Abelino To M.D. [id number] Bilirubin [Mass/Vol] 0.4 mg/dL Normal 0.0-1.3 [facility] Comment on above: Performed By: #### 4 5866 #### LAB [address] [address] Abelino To M.D. [id number] BILIRUBIN, DIRECT < Normal 0.0-0.4 [facility] Comment on above: Performed By: #### 4 5866 #### LAB [address] [address] Abelino To M.D. [id number] Protein [Mass/Vol] 6.6 g/dL Normal 6.0-8.0 [facility] Comment on above: Performed By: #### 4 5866 #### LAB [address] [address] Abelino To M.D. [id number] Hepatic function 2000 panelO rdered By: Gita Raman on 10-19-2024 Albumin [Mass/Vol] 3.2 g/dL 3.2 - 5.2 g/dL [facility] ALP [Catalytic activity/Vol] 57 U/L 40 - 150 U/L [facility] ALT [Catalytic activity/Vol] 12 U/L 0-50 U/L [facility] AST [Catalytic activity/Vol] 17 U/L 0-50 U/L [facility] Bilirubin [Mass/Vol] 0.4 mg/dL 0.0 - 1 .3 mg/dL [facility] Bilirubin.conjugated [Mass/Vol] mg/dL 0.0 - 0.4 mg/dL [facility] Interpretation and review of laboratory results Normal [facility] Protein [Mass/Vol] 6.6 g/dL 6.0 - 8.0 g/dL [facility] MAGNESIUM LEVELon 10-19-2024 Magnesium [Mass/Vol] 1.9 mg/dL Normal 1.6-2.4 [facility] Comment on above: Performed By: #### 4 6109 #### LAB [address] [address] Abelino To M.D. [id number] MANUAL DIFFERENTIALon 2023 BASOPHILS - ABS (DIFF) 0.00 K/mcL Normal 0.00-0.30 [facility] Comment on above: Performed By: #### 4 [id number] #### LAB [address] [address] Abelino To M.D. [id number] BASOPHILS - REL (DIFF) 0.0 % Normal [facility] Comment on above: Performed By: #### 4 [id number] #### LAB [address] [address] Abelino To M.D. [id number] EOSINOPHILS - ABS (DIFF) 0.15 K/mcL Normal 0.00-0.50 [facility] Comment on above: Performed By: #### 4 5456 #### LAB [address] [address] Abelino To M.D. [id number] EOSINOPHILS - REL (DIFF) 0.9 % Normal [facility] Comment on above: Performed By: #### 4 5456 #### LAB [address] [address] Abelino To M.D. [id number] LYMPHOCYTES - ABS (DIFF) 1.04 K/mcL Normal 0.90-4.00 [facility] Comment on above: Performed By: #### 4 5456 #### LAB [address] [address] Abelino To M.D. [id number] LYMPHOCYTES - REL (DIFF) 6.1 % Normal [facility] Comment on above: Performed By: #### 4 5456 #### LAB [address] [address] Abelino To M.D. [id number] METAMYELOCYTES-REL (DIFF) 1.7 % Normal [facility] Comment on above: Performed By: #### 4 5456 #### LAB [address] [address] Abelino To M.D. [id number] MONOCYTES - ABS (DIFF) 0.44 K/mcL Normal 0.30-0.90 [facility] Comment on above: Performed By: #### 4 5456 #### LAB [address] [address] Abelino To M.D. [id number] MONOCYTES - REL (DIFF) 2.6 % Normal [facility] Comment on above: Performed By: #### 4 5456 #### LAB [address] [address] Abelino To M.D. [id number] NEUTROPHILS - ABS (DIFF) 15.47 K/mcL High 1.70-7.00 [facility] Comment on above: Performed By: #### 4 5456 #### LAB [address] [address] Abelino To M.D. [id number] NEUTROPHILS - REL (DIFF) 88.7 % Normal [facility] Comment on above: Performed By: #### 4 5456 #### LAB [address] [address] Abelino To M.D. [id number] MORPHOLOGYon 10-19-2024 PLATELET ESTIMATE Normal Normal Normal [facility] Comment on above: Performed By: #### L [id number] #### LAB [address] [address] Abelino To M.D. [id number] RBC MORPH SCAN Normal Normal [facility] Comment on above: Result Comment: RBC Indices confirmed with manual peripheral smear review. Performed By: #### L [id number] ####[facility] [address] [place], [place] [address] Abelino To M.D. [id number] Magnesiumon 10-19-2024 Magnesium [Mass/Vol] 1.9 mg/dL 1.6 - 2 .4 mg/dL [facility] Manual Differential panel (B ld)on 10-19-2024 Basophils (Bld) [#/Vol] 0 10*3/uL [facility] Basophils/100 WBC (Bld) 0 % [facility] Eosinophils (Bld) [#/Vol] 0.15 10*3/uL [facility] Eosinophils/100 WBC (Bld) 0.9 % [facility] Lymphocytes (Bld) [#/Vol] 1.04 10*3/uL [facility] Lymphocytes/100 WBC (Bld) 6.1 % [facility] Metamyelocytes/100 WBC (Bld) 1.7 % [facility] Monocytes (Bld) [#/Vol] 0.44 10*3/uL [facility] Monocytes/100 WBC (Bld) 2.6 % [facility] Neutrophils (Bld) [#/Vol] 15.47 10*3/uL High [facility] Neutrophils/100 WBC (Bld) 88.7 % [facility] No Panel Informationon 10-19 Interpretation and review of laboratory results Abnormal [facility] Interpretation and review of laboratory results Normal [facility] PHOSPHORUSon 10-19-2024 Phosphate [Mass/Vol] 3.2 mg/dL Normal 2.3-3.7 [facility] Comment on above: Performed By: #### 4 6299 ####[facility] [address] [place], [place] [address] Abelino To M.D. [id number] Phosphoruson 10-19-2024 Phosphate [Mass/Vol] 3.2 mg/dL 2.3 - 3 .7 mg/dL [facility] BASIC METABOLIC PANELon 09-30 Anion gap [Moles/Vol] 17 mmol/L Normal 08-[address] [facility] Comment on above: Order Comment: Injur y/Trauma or Illness?:Illness/Other How long have you had these symptoms (acute/chronic)?:Acute Reason for exam?:Known perforated appendix. Known prior abscess on imaging. No imaging available. Repeating to facilitate source control Type of Exam?:Initial Additional signs and symptoms?:order w AND w/o per provider Performed By: #### 4 6124 #### LAB [address] [address] Abelino To M.D. [id number] Calcium [Mass/Vol] 8.8 mg/dL Normal 8.4-10.2 [facility] Comment on above: Order Comment: Injur y/Trauma or Illness?:Illness/Other How long have you had these symptoms (acute/chronic)?:Acute Reason for exam?:Known perforated appendix. Known prior abscess on imaging. No imaging available. Repeating to facilitate source control Type of Exam?:Initial Additional signs and symptoms?:order w AND w/o per provider Performed By: #### 4 6124 #### LAB [address] [address] Abelino To M.D. [id number] Chloride [Moles/Vol] 101 mmol/L Normal 98-108 [facility] Comment on above: Order Comment: Injur y/Trauma or Illness?:Illness/Other How long have you had these symptoms (acute/chronic)?:Acute Reason for exam?:Known perforated appendix. Known prior abscess on imaging. No imaging available. Repeating to facilitate source control Type of Exam?:Initial Additional signs and symptoms?:order w AND w/o per provider Performed By: #### 4 6124 #### LAB [address] [address] Abelino To M.D. [id number] Creatinine [Mass/Vol] 1.11 mg/dL Normal 0.80-1.[address] [facility] Comment on above: Order Comment: Injur y/Trauma or Illness?:Illness/Other How long have you had these symptoms (acute/chronic)?:Acute Reason for exam?:Known perforated appendix. Known prior abscess on imaging. No imaging available. Repeating to facilitate source control Type of Exam?:Initial Additional signs and symptoms?:order w AND w/o per provider Performed By: #### 4 6138 #### LAB [address] [address] Abelino To M.D. [id number] EGFR 72 mL/min/1.73 m2 Normal >=60 [facility] Comment on above: Order Comment: Injur y/Trauma or Illness?:Illness/Other How long have you had these symptoms (acute/chronic)?:Acute Reason for exam?:Known perforated appendix. Known prior abscess on imaging. No imaging available. Repeating to facilitate source control Type of Exam?:Initial Additional signs and symptoms?:order w AND w/o per provider Result Comment: Jeremie mated GFR was calculated using the 2020 CKD-EPI creatinine equation. Performed By: #### 4 61 #### LAB [address] [address] Abelino To M.D. [id number] Glucose [Mass/Vol] 112 mg/dL High 65-99 [facility] Comment on above: Order Comment: Injur y/Trauma or Illness?:Illness/Other How long have you had these symptoms (acute/chronic)?:Acute Reason for exam?:Known perforated appendix. Known prior abscess on imaging. No imaging available. Repeating to facilitate source control Type of Exam?:Initial Additional signs and symptoms?:order w AND w/o per provider Performed By: #### 4 6124 ####[facility] [address] [address] Abelino To M.D. [id number] HCO3 (Bld) [Moles/Vol] 22 mmol/L Normal 21-32 [facility] Comment on above: Order Comment: Injur y/Trauma or Illness?:Illness/Other How long have you had these symptoms (acute/chronic)?:Acute Reason for exam?:Known perforated appendix. Known prior abscess on imaging. No imaging available. Repeating to facilitate source control Type of Exam?:Initial Additional signs and symptoms?:order w AND w/o per provider Performed By: #### 4 6117 ####[facility] [address] [address] Abelino To M.D. [id number] Potassium [Moles/Vol] 4.5 mmol/L Normal 3.5-5.[address] [facility] Comment on above: Order Comment: Injur y/Trauma or Illness?:Illness/Other How long have you had these symptoms (acute/chronic)?:Acute Reason for exam?:Known perforated appendix. Known prior abscess on imaging. No imaging available. Repeating to facilitate source control Type of Exam?:Initial Additional signs and symptoms?:order w AND w/o per provider Performed By: #### 4 6124 ####[facility] LAB [address] [place] [address] Abelino To M.D. [id number] Sodium [Moles/Vol] 135 mmol/L Normal 135-145 [facility] Comment on above: Order Comment: Injur y/Trauma or Illness?:Illness/Other How long have you had these symptoms (acute/chronic)?:Acute Reason for exam?:Known perforated appendix. Known prior abscess on imaging. No imaging available. Repeating to facilitate source control Type of Exam?:Initial Additional signs and symptoms?:order w AND w/o per provider Performed By: #### 4 [id number] ####[facility] [address] [place] [address] Abelino To M.D. [id number] Urea nitrogen [Mass/Vol] 22 mg/dL Normal 8-25 [facility] Comment on above: Order Comment: Injur y/Trauma or Illness?:Illness/Other How long have you had these symptoms (acute/chronic)?:Acute Reason for exam?:Known perforated appendix. Known prior abscess on imaging. No imaging available. Repeating to facilitate source control Type of Exam?:Initial Additional signs and symptoms?:order w AND w/o per provider Performed By: #### 4 [id number] #### LAB [address] [place] [address] Abelino To M.D. [id number] Urea nitrogen/Creatinine [Mass ratio] 19.8 mg/mg Normal 10.0-20.0 [facility] Comment on above: Order Comment: Injur y/Trauma or Illness?:Illness/Other How long have you had these symptoms (acute/chronic)?:Acute Reason for exam?:Known perforated appendix. Known prior abscess on imaging. No imaging available. Repeating to facilitate source control Type of Exam?:Initial Additional signs and symptoms?:order w AND w/o per provider Performed By: #### 4 [id number] #### LAB [address] [place], [place] [address] Abelino To M.D. [id number] BLOOD CULTURE AEROBIC/ANAERO BICon 10-18-2024 BLOOD CULTURE AEROBIC/ANAEROBIC BLOOD CULTURE No Growth after 5 days Normal [facility] Comment on above: Performed By: #### 4 [id number] #### LAB [address] [place], [place] [address] Abelino To M.D. [id number] Performed By: #### 4 4014 #### LAB [address] [place], [place] [address] Abelino To M.D. [id number] BODY FLUID AEROBIC AND ANAER OBIC CULTUREon 10-18-2024 BODY FLUID AEROBIC AND ANAEROBIC CULTURE CULTURE No Growth after 5 days GRAM STAIN RESULT Many WBC Many RBC No Organisms Seen Normal [facility] Comment on above: Performed By: #### 4 [id number] #### [facility] [address] [place] [address] Felix Park M.D. [id number] Basic metabolic 2000 panelon 10-18-2024 Anion gap [Moles/Vol] 17 mmol/L 10 - 2 0 mmol/L [facility] Calcium [Mass/Vol] 8.8 mg/dL 8.4 - 10. 2 mg/dL [facility] Chloride [Moles/Vol] 101 mmol/L 98 - 10 8 mmol/L [facility] Creatinine [Mass/Vol] 1.11 mg/dL 0.80 - 1.30 mg/dL [facility] GFR/1.73 sq M.predicted CKD-EPI (S/P/Bld) [Vol rate/Area] 72 - PINF [facility] Comment on above: Estimated GFR was ca lculated using the 2020 CKD-EPI creatinine equation. Glucose [Mass/Vol] 112 mg/dL High 65 - 99 mg/dL [facility] HCO3 [Moles/Vol] 22 mmol/L 21 - 32 mmol/L [facility] Interpretation and review of laboratory results Abnormal [facility] Potassium [Moles/Vol] 4.5 mmol/L 3.5 - 5.1 mmol/L [facility] Sodium [Moles/Vol] 135 mmol/L 135 - 145 mmol/L [facility] Urea nitrogen [Mass/Vol] 22 mg/dL 8 - 25 mg/dL [facility] Urea nitrogen/Creatinine [Mass ratio] 19.8 mg/mg 10.0 - 20.0 [facility] has implemented the eGFR calculation approach that does not have a coefficient for race that conforms to the NKF-ASN Task Force Recommendations. [facility] CBC Auto Differentialon 09-30 Erythrocyte distribution width (RBC) [Entitic vol] 12.5 % 11.6 - 14.8 % [facility] Hematocrit (Bld) [Volume fraction] 35.2 % Low 41.0 - 53.0 % [facility] Hemoglobin (Bld) [Mass/Vol] 11.7 g/dL Low 13.5 - 17.5 g/dL [facility] MCH (RBC) [Entitic mass] 32.1 pg 26.0 - 34.0 pg [facility] MCHC (RBC) [Mass/Vol] 33.2 g/dL 31.0 - 37.0 g/dL [facility] MCV (RBC) [Entitic vol] 96.4 fL 80.0 - 100.0 fL [facility] Nucleated RBC (Bld) [#/Vol] 0 10*3/uL [facility] Nucleated RBC/100 WBC (Bld) [Ratio] 0 % [facility] Platelet mean volume (Bld) [Entitic vol] 9.8 fL 9.4 - 12.4 fL [facility] Platelets (Bld) [#/Vol] 325 10*3/uL [facility] RBC (Bld) [#/Vol] 3.65 10*6/uL Low [facility] ealth WBC (Bld) [#/Vol] 15.98 10*3/uL High [facility] CBC WITH AUTO DIFFERENTIALon 10-18-2024 AUTO NRBC 0.0 % Normal [facility] Comment on above: Performed By: #### L [id number] ####[facility] [address] [place], [place] [address] Abelino To M.D. [id number] AUTO NRBC ABS COUNT 0.00 K/mcL Normal 0.00-0.00 [facility] Comment on above: Performed By: #### L [id number] ####[facility] [address] [place] [address] Abelino To M.D. [id number] Erythrocyte distribution width (RBC) [Ratio] 12.5 % Normal 11.6-14.8 [facility] Comment on above: Performed By: #### L [id number] ####[facility] [address] [place] [address] Abelino To M.D. [id number] Hematocrit (Bld) [Volume fraction] 35.2 % Low 41.0-53.0 [facility] Comment on above: Performed By: #### L [id number] ####[facility] [address] [place] [address] Abelino To M.D. [id number] Hemoglobin (Bld) [Mass/Vol] 11.7 g/dL Low 13.5-17.5 [facility] Comment on above: Performed By: #### L [id number] ####[facility] [address] [place] [address] Abelino To M.D. [id number] MCH (RBC) [Entitic mass] 32.1 pg Normal 26.0-34.0 [facility] Comment on above: Performed By: #### L [id number] ####[facility] [address] [place] [address] Abelino To M.D. [id number] MCV (RBC) [Entitic vol] 96.4 fL Normal 80.0-100.0 [facility] Comment on above: Performed By: #### L [id number] ####[facility] [address] [place] [address] Abelino To M.D. [id number] MEAN CORPUSCULAR HEMOGLOBIN CONC 33.2 g/dL Normal 31.0-37.0 [facility] Comment on above: Performed By: #### L [id number] ####[facility] [address] [place] [address] Abelino To M.D. [id number] Platelet mean volume (Bld) [Entitic vol] 9.8 fL Normal 9.4-12.4 [facility] Comment on above: Performed By: #### L [id number] ####[facility] [address] [place], [place] [address] Abelino To M.D. [id number] Platelets (Bld) [#/Vol] 325 10*3/uL Normal 150-400 [facility] Comment on above: Performed By: #### L [id number] ####[facility] [address] [place], [place] [address] Abelino To M.D. [id number] RBC (Bld) [#/Vol] 3.65 10*6/uL Low 4.50-5.90 [facility] Comment on above: Performed By: #### L [id number] ####[facility] [address] [place], [place] [address] Abelino To M.D. [id number] WBC (Bld) [#/Vol] 15.98 10*3/uL High 4.50-11.00 [facility] Comment on above: Performed By: #### L [id number] ####[facility] [address] [place] [id number] Abelino To M.D. [id number] CBC and Diff Morphologyon Platelets LM Ql (Bld) Normal Normal [facility] RBC morphology finding Nom (Bld) Normal [facility] Comment on above: RBC Indices confirme d with manual peripheral smear review. CONSULTon 10-18-2024 CONSULT Vascular & Interventional Radiology Provided By [facility] (Diagnostic Radiology, Interventional and Neurointerventional Radiology and Vascular Medicine) Interventional Radiology Department @ : [phone] CT Procedures @ : [phone] [place] Procedures @ : [phone] [facility] clinic @ : [phone] [email or web address] [facility] SALES ORDER COORDINATOR DIRECTORY The consult was reviewed. The patient's chart was reviewed. The patient's H&P was reviewed. The patient will be scheduled for the requested RLQ abscess drain placement procedure. Procedure date and time TBD by the Control Desk per the designated modality with corresponding contact numbers as noted above, after anticoagulant/antipla telet medications have been reviewed and pre-procedural recommendations have been met per guidelines below. Please refer to the procedure note section for preliminary procedure details as well as the imaging section for the final procedure report. Pertinent image (if applicable): Pertinent labs are as follows: Results from last 7 days Lab Units 10/18/24 0732 INR 1.3* No results found for: PTT Lab Results Component Value Date PLT 325 10/18/2024 Lab Results Component Value Date BUN 22 10/18/2024 Lab Results Component Value Date CREATININE 1.11 10/18/2024 Patient's allergies are as follows: Allergies as of 10/17/2024 (No Known Allergies) VIR Steffany-procedure lab value guideline: Table 1. LOW Bleeding Risk Laboratory Guidelines Low Bleeding Risk Procedures Target Laboratory Values3 Bone Marrow Biopsy [Platelet Count - N/A] Catheter exchanges (gastrostomy, biliary, nephrostomy, abscess, including gastrostomy/gastrojej unostomy conversions) CVC tunneled >/= 8 Fr* Diagnostic venography and select venous interventions: pelvis and extremities Dialysis shunt interventions IVC filter placement and removal Non-tunneled chest tube placement for pleural effusion Non-tunneled venous access and removal (including PICC placement) and Tunneled venous access Paracentesis Peripheral nerve blocks, joint, and musculoskeletal injections Sacroiliac joint injection and sacral lateral branch blocks Superficial abscess drainage or biopsy (palpable lesion, lymph node, soft tissue, breast, thyroid) Thoracentesis Trans jugular liver biopsy Trigger point injections including piriformis Tunneled drainage catheter placement* PT/INR < 2.0 - 3.0 Platelets > 20,000/mcL (Consider transfusing platelets if <20,000/mcL) If patient with Chronic Liver Disease (based on expert opinion): PT/INR < 3.0 (Consider Vitamin K infusion if INR >3.0) Platelets > 20,000/mcL (Transfuse platelets if <20,000/mcL in patients with a large spleen) Fibrinogen > 100mg/dL (Consider cryoprecipitate if <100mg/dL) *If on Direct Oral Anticoagulant (DOAC), follow HIGH Bleeding Risk recommendations in Table 2 and Table 3 Table 2. HIGH Bleeding Risk Laboratory Guidelines: HIGH Bleeding Risk Procedures Target Laboratory Values3 Ablations: solid organs, bone, soft tissue, lung Arterial diagnostic interventions: aortic, pelvic, mesenteric, peripheral Biliary interventions (including cholecystostomy tube placement) Catheter directed thrombolysis/thrombec enrico- DVT, PE, portal vein (Highly case dependent) Deep abscess drainage (e.g., lung parenchyma, abdominal, pelvic, retroperitoneal) Deep non organ biopsies (e.g., spine, soft tissue in intra-abdominal, retroperitoneal, pelvic compartments) Gastrostomy/gastrojej unostomy placement IVC filter removal complex Lumbar puncture Lymphangiography Portal vein interventions Solid organ biopsies Spine procedures with risk of spinal or epidural hematoma (e.g., kyphoplasty, vertebroplasty, epidural injections, facet blocks) Trans jugular intrahepatic portosystemic shunt Port placement/removal (Buried) Urinary tract interventions (including nephrostomy tube placement, ureteral dilation, stone removal) Venous interventions: intrathoracic and [employer]ODUCT SAF[employer]Y EXPERT intervention PT/INR < 1.5 - 1.8 (if arterial access, femoral: INR < 1.8, radial: INR < 2.2) Platelets > 50,000/mcL (Consider transfusing platelets if <50,000/mcL) If patient with Chronic Liver Disease (based on expert opinion): PT/INR < 2.5 (Give Vitamin K 10mg infusion if INR >2.5) Platelets > 30,000/mcL (Transfuse platelets if <30,000/mcL in patients with a large spleen) Fibrinogen > 100mg/dL (Consider cryoprecipitate if <100mg/dL) VIR Steffany-procedure anticoagulant/antipla telet guideline (pending P&T review 10/2020): Medication LOW Bleeding Risk^ HIGH Bleeding Risk^ Reinitiation Abciximab (ReoPro) Hold 24 hrs before procedure Hold 24 hrs before procedure Patient undergoing PCI or within immediate periprocedural period from cardiac intervention; use multidisciplinary, shared decision-making Apixaban (Eliquis) Do not hold CrCl > 50mL/min: Hold 4 doses CrCl < 30-50mL/mi (more content not included)... Normal [facility] CONSULT - Attestation signed by De Rangel MD at 11/08/2024 8:52 PM I attest to José Antonio's evaluation, review medical record, radiological findings, and labs, I have discussed extensively with nurse practitioner management plan, and examination. Patient reevaluated today, was transferred from [facility] in [place], was found with perforated appendix, at that time in inversus was treated conservatively. Currently transferred for interventional radiology's evaluation and drainage of appendix abscess. No vomiting no nausea except for abdominal pain no fever no chills. CT that was obtained in ER showed dilated appendix findings consistent with perforated appendix. Patient currently on IV Zosyn. Patient with a perforated appendix Patient was abdominal abscess. Continue patient on current therapy Patient currently on IV Zosyn Follow-up labs Follow-up interventional radiologist, scheduling for percutaneous drainage. Follow-up cultures Follow-up blood cultures I reviewed CT scan of the abdomen and pelvis Will continue to follow with you. Patient Name: Sofya Cabrera Admit Date: [id number] MR #: [id number] : 1955 Physicians: Bashir Cleary CNP (Family); Honey Shi MD (Referring) Chief complaint: Perforated appendix History: Sofya is a 68-year-old male with no pertinent medical history with us. He presented yesterday to the ER with history of perforated appendix about a week and a half ago. Patient initially was at the [facility] in [place] on Tuesday for right lower quadrant abdominal pain and was treated conservatively with IV antibiotics ciprofloxacin and Flagyl. He was transferred to [facility] yesterday for interventional radiologist evaluation and drainage of appendix abscess. Patient had denied any history of fever or chills, no nausea, no vomiting, no diarrhea. Patient still complaining of right lower abdominal pain. Has a white cell count of 16.7. CT abdomen withcontrast with acute perforated appendicitis. CT abdomen without contrast showing dilated appendix with inflammatory stranding. CT abdomen and pelvis with findings consistent with acute perforated appendicitis with multiple probable developing intra-abdominal abscess, with largest in the right paracolic gutter. Patient had been placed on IV Zosyn and current evaluation is for perforated appendicitis, abscess, abdominal pain and antibiotics management. ROS: Constitutional: Negative for fatigue, change in appetite, chills and fever. HENT: Negative for congestion and rhinorrhea. Negative for ear pain, sore throat. Eyes: Negative for pain and redness. Respiratory: Negative for cough and shortness of breath. Cardiovascular: Negative for chest pain and palpitations. Gastrointestinal: Positive for abdominal pain, constipation, diarrhea, nausea and vomiting. Genitourinary: Negative for difficulty urinating, dysuria, frequency, hesitancy, flank pain Musculoskeletal: Negative for back pain, neck pain and neck stiffness. Skin: Negative for color change and rash. Neurological: Negative for lightheadedness, dizziness, syncope, weakness and headaches. Psychiatric/Behaviora l: Negative for confusion, hallucinations and suicidal ideas. Positives and pertinent negatives as per HPI. History reviewed. No pertinent past medical history. History reviewed. No pertinent surgical history. History reviewed. No pertinent family history. Exam: PACU Vitals 10/18/24 0712 BP: 118/70 Pulse: 84 Resp: 18 Temp: 97.3 degrees F (36.3 degrees C) SpO2: 93% Allergies: Patient has no known allergies. Current Facility-Administered Medications: acetaminophen (TYLENOL) tablet 975 mg, 975 mg, Oral, Q8H PRN, Kiza, Erlinda Niwemukiza, DO, 975 mg at 10/18/24 0612 bisacodyL (DULCOLAX) suppository 10 mg, 10 mg, Rectal, Daily PRN, Kiza, Erlinda Niwemukiza, DO docusate sodium (COLACE) capsule 100 mg, 100 mg, Oral, Daily PRN, Kiza, Erlinda Niwemukiza, DO lisinopriL (PRINIVIL,ZESTRIL) tablet 40 mg, 40 mg, Oral, Daily with lunch, Kiza, Erlinda Niwemukiza, DO magnesium sulfate 2 g in sterile water (SW) 50 mL IVPB, 2 g, Intravenous, Once, Lucila Foote CNP melatonin Tab 5 mg, 5 mg, Oral, Nightly PRN, Erlinda Gilman, DO nitroGLYCERIN (NITROSTAT) SL tablet 0.4 mg, 0.4 mg, Sublingual, Q5 Min PRN, Erlinda Gilman, DO ondansetron (ZOFRAN-ODT) disintegrating tablet 4 mg, 4 mg, Oral, Q6H PRN OR ondansetron (ZOFRAN) injection 4 mg, 4 mg, Intravenous, Q6H PRN, Erlinda Gilman, DO piperacillin-tazobact am (ZOSYN) IVPB 3.375 g (premix), 3.375 g, Intravenous, Q8H, Erlinda Gilman DO, Last Rate: 12.5 mL/hr at 10/17/24 2342, 3.375 g at 10/17/24 2342 senna (SENOKOT) tablet 8.6 mg, (more content not included)... Normal [facility] CONSULT - Attestation signed by Facundo Woods MD at 10/18/2024 10:45 AM Patient was independently seen and examined. I have independently reviewed the patient's imaging and laboratory data. I have reviewed the below note from Akil Corrales CNP and agree with their documented history, exam, and assessment and plan for all diagnoses, with the following addendum. An independent history and physical exam were personally collected by myself and I agree with the documented findings from the nurse practitioner, in addition to any changes or affirmations I document here in my subsequent note. I personally performed a substantive portion of the visit independently, including obtaining a history, performing a physical exam. I performed a substantive part of the medical decision making noted. Furthermore even though we both were involved with evaluating this patient today, my participation and time spent has exceeded 51% of the total time spent. The patient is a 68 year old male who was transferred from [facility] for perforated appendicitis. The patient was initially admitted back on 10/11. He has been receiving IV antibiotics since that time and surgery was following. I am not able to review the patient's initial imaging, though reports mention suggestion of perforated appendicitis without abscess formation. The surgeon there elected to treat with antibiotics and follow to see if an abscess developed. The patient had been having improvement but his WBC began to rise and so they repeated CT, which demonstrated abscess formation. For reasons unclear, their interventional radiology is not able to place a drain and so the patient was transferred here. The patient reports his pain is currently controlled and he is feeling better than his initial presentation. Blood work obtained here shows leukocytosis up to 17.7 and CTAP showing abscess along the right lower quadrant and pericolic gutter (I have personally reviewed these images). With the abscess that has now developed I agree with IR drain placement for source control. Will ideally cool things down and then we could consider an interval appendectomy further down the line once inflammation resolves. The degree of inflammation that is present now increases risk of inadvertent enterotomies and potential injury to other structures, and would likely require a resection rather than simple appendectomy. Will continue to follow. [facility] SURGICAL HISTORY & PHYSICAL/CONSULTATION NOTE SURGICAL PROBLEM Perforated appendicitis with abscess ASSESSMENT & PLAN/ACTIVE MEDICAL PROBLEMS: Perforated appendicitis with abscess WBC 17.7, afebrile, HDS Repeat CT abdomen pelvis pending NPO, IVF, Zosyn IR consulted for aspiration and possible drain placement ID consulted per primary team Pain control Will need interval appendectomy INCIDENTAL FINDINGS: N/A. CHIEF COMPLAINT: Perforated appendicitis HISTORY OF PRESENT ILLNESS / INJURY (HPI): Sofya is a 68-year-old male with a past medical history of hypertension who initially presented to [facility] on 10/10/2024 with perforated appendicitis. He was treated conservatively with IV antibiotics. A follow-up CT was obtained on 10/17 that revealed a intra-abdominal abscess. He was then transferred to [facility] for higher care. He was admitted under the [facility] service, general surgery was consulted for evaluation. PAST MEDICAL HISTORY (PMH): History reviewed. No pertinent past medical history. History reviewed. No pertinent surgical history. Social History Tobacco Use Smoking status: Never Smokeless tobacco: Never Vaping Use Vaping status: Never Used History reviewed. No pertinent family history. MEDICATIONS: No current facility-administered medications on file prior to encounter. No current outpatient medications on file prior to encounter. ALLERGIES: No Known Allergies REVIEW OF SYSTEMS: COVID19 Screen: Negative for fever, cough, SOB, exposure. Constitutional Symptoms: Negative for unexplained falls, weight loss Eyes: Negative for eye pain or vision changes Ears, Nose, Mouth, Throat: Negative for rhinorrhea, nasal pain, dysphagia, hoarseness Cardiovascular: Negative for chest pain, orthopnea, edema Respiratory: Negative for cough, shortness of breath Gastrointestinal: + Abdominal pain Genitourinary: Negative for dysuria, hematuria Musculoskeletal: Negative for pain, joint edema Skin/Breast: Negative for rash, itching, lesions Neurological: Negative for paresthesia, paralysis, loss of bowel or bladder control, loss of consciousness Psychiatric: Negative for de (more content not included)... Normal [facility] CRP [Mass/Vol]on 10-18-2024 Interpretation and review of laboratory results Abnormal [facility] CRP, INFLAMMATIONon 10-18-20 24 CRP [Mass/Vol] 131.0 mg/L High 0.0-10.0 [facility] Comment on above: Performed By: #### 4 5334 ####[facility] [address] [place], [place] [address] Abelino To M.D. [id number] CRP, Inflammationon 10-18-20 24 CRP [Mass/Vol] 131 mg/L High 0.0 - 10.0 mg/L [facility] CT Abdomen and Pelvis WO and W contrast Wisam 10-18-2024 1. Findings consistent with acute perforated appendicitis with multiple probable developing intraabdominal abscess is, the largest in the right paracolic gutter as described above. Overall, no significant change when compared with CT scan from outside facility yesterday. 2. Other incidental findings as above Workstation ID: [id number] Elimi EXAMINATION: CT ABDOMEN PELVIS WITH AND WITHOUT IV CONTRAST ONLY HISTORY: ORDERING SYSTEM PROVIDED HISTORY: Known perforated appendix. Known prior abscess on imaging. No imaging available. Repeating to facilitate source control, TECHNOLOGIST PROVIDED HISTORY: Illness/Other Reason for exam: Known perforated appendix. Known prior abscess on imaging. No imaging available. Repeating to facilitate source control Encounter Type: Initial Additional signs and symptoms: order w & w/o per provider ORDERING SYSTEM PROVIDED DIAGNOSIS CODES: COMPARISON: 10/17/2024 from outside facility TECHNIQUE: Prior to and following the uneventful administration of 75 mL Isovue-370 IV contrast, helical imaging of the abdomen and pelvis was performed. Multiplanar reformats are submitted. Dose reduction techniques were achieved by using: automated exposure control and/or adjustment of mA and/or kV according to patient size and/or use of iterative reconstruction technique. FINDINGS: ABDOMEN: Trace right pleural effusion with adjacent atelectasis. Lung bases otherwise clear. Heart size is stable. No pericardial effusion. The liver demonstrates normal morphology and attenuation without focal suspicious hepatic lesion. Simple appearing cysts are present. The gallbladder is present without calcified gallstone or pericholecystic abnormality. The spleen is normal in size with calcified granulomata. The pancreas is unremarkable there is a lipid rich right adrenal nodule. The kidneys demonstrate symmetric enhancement. Bilateral simple appearing renal cysts are present. No obstructive uropathy identified. PELVIS: No free air bowel obstruction is evident. No pneumatosis identified. Dilated appendix with appendiceal wall thickening and Steffany appendiceal inflammatory changes is unchanged. Ill-defined developing rim enhancing fluid is noted within the right pericolic gutter, measures 12 cm in maximum dimension. This is relatively unchanged from prior study. There is a small mesenteric developing fluid collection (series 3, image 89). None, also unchanged from recent study. In the left lower quadrant, there is developing rim enhancing fluid measuring 5.6 cm in maximum dimension. This may tract to a smaller fluid collection in the deep pelvis measuring 5 cm in maximum dimension. Colonic diverticulosis is noted. The bladder is well distended and thin walled. The prostate gland is enlarged. Probable reactive external iliac lymph nodes bilaterally. Reactive mesenteric lymph nodes. No definite evidence of lymphadenopathy. The abdominal aorta is normal in caliber with mild to moderate atherosclerosis. No acute or aggressive osseous abnormality identified. [facility] Tyler Louis MD - 10/18/2024 EXAMINATION: CT ABDOMEN PELVIS WITH AND WITHOUT IV CONTRAST ONLY HISTORY: ORDERING SYSTEM PROVIDED HISTORY: Known perforated appendix. Known prior abscess on imaging. No imaging available. Repeating to facilitate source control, TECHNOLOGIST PROVIDED HISTORY: Illness/Other Reason for exam: Known perforated appendix. Known prior abscess on imaging. No imaging available. Repeating to facilitate source control Encounter Type: Initial Additional signs and symptoms: order w & w/o per provider ORDERING SYSTEM PROVIDED DIAGNOSIS CODES: COMPARISON: 10/17/2024 from outside facility TECHNIQUE: Prior to and following the uneventful administration of 75 mL Isovue-370 IV contrast, helical imaging of the abdomen and pelvis was performed. Multiplanar reformats are submitted. Dose reduction techniques were achieved by using: automated exposure control and/or adjustment of mA and/or kV according to patient size and/or use of iterative reconstruction technique. FINDINGS: ABDOMEN: Trace right pleural effusion with adjacent atelectasis. Lung bases otherwise clear. Heart size is stable. No pericardial effusion. The liver demonstrates normal morphology and attenuation without focal suspicious hepatic lesion. Simple appearing cysts are present. The gallbladder is present without calcified gallstone or pericholecystic abnormality. The spleen is normal in size with calcified granulomata. The pancreas is unremarkable there is a lipid rich right adrenal nodule. The kidneys demonstrate symmetric enhancement. Bilateral simple appearing renal cysts are present. No obstructive uropathy identified. PELVIS: No free air bowel obstruction is evident. No pneumatosis identified. Dilated appendix with appendiceal wall thickening and Steffany appendiceal inflammatory changes is unchanged. Ill-defined developing rim enhancing fluid is noted within the right pericolic gutter, measures 12 cm in maximum dimension. This is relatively unchanged from prior study. There is a small mesenteric developing fluid collection (series 3, image 89). None, also unchanged from recent study. In the left lower quadrant, there is developing rim enhancing fluid measuring 5.6 cm in maximum dimension. This may tract to a smaller fluid collection in the deep pelvis measuring 5 cm in maximum dimension. Colonic diverticulosis is noted. The bladder is well distended and thin walled. The prostate gland is enlarged. Probable reactive external iliac lymph nodes bilaterally. Reactive mesenteric lymph nodes. No definite evidence of lymphadenopathy. The abdominal aorta is normal in caliber with mild to moderate atherosclerosis. No acute or aggressive osseous abnormality identified. IMPRESSION: 1. Findings consistent with acute perforated appendicitis with multiple probable developing intraabdominal abscess is, the largest in the right paracolic gutter as described above. Overall, no significant change when compared with CT scan from outside facility yesterday. 2. Other incidental findings as above Workstation ID: [id number] [facility] Radiology Study observation (narrative) CT Abdomen and Pelvis WO and W contrast IVOrdered By: Tyler Louis on 10-18-2024 [facility] Work Phone: CT Guidance for drainage of abscess and placement of drainage catheter of Peritoneal spaceon 10-18-[address]-guided 10 Syrian right lower quadrant abscess drain placement. Workstation ID: [id number] [facility] EXAMINATION: ACT ABSCESS DRAINAGE PERITONEAL PROCEDURE: 1. CT guided abscess drain placement. 2. Limited IR CT. HISTORY: 68-year-old with perforated appendicitis presenting for right lower quadrant abscess drain placement. COMPARISON: CT abdomen pelvis 10/18/2024 OPERATING PHYSICIAN: Mary Holliday MD MEDICATIONS: Lidocaine, local Fentanyl: 100 mcg Versed: 2 mg RADIATION DOSE: DLP: 540 mGycm TECHNIQUE/FINDINGS: Informed written consent was obtained from the patient and witnessed following a discussion of the benefits and potential risks of the procedure which include but are not limited to infection, bleeding, and injury to adjacent structures. The patient's concerns were addressed. The patient was brought to the angiography suite and placed in a supine position. A time-out and pause/confirm was performed according to hospital policy. Initial CT images demonstrate the right lower quadrant collection an appropriate skin entry site was selected and marked. The right lower abdomen was prepped and draped in usual sterile fashion. All elements of maximal sterile barrier techniques were followed and when used sterile ultrasound preparation was utilized. The skin and underlying soft tissues were anesthetized with lidocaine. Under iterative CT guidance, an 18 gauge needle was advanced into the collection yielding immediate return of cloudy yellow fluid. A sample was obtained and sent to the lab for analysis. An Amplatz wire was advanced through the needle and into the collection. The needle was removed. Following serial dilation, a 10 Syrian M type pigtail drainage catheter was advanced over the wire and into the collection. The wire and inner stiffener were removed and the pigtail locking mechanism engaged. The drain was connected to bulb suction and secured in place with a single nylon suture. An appropriate sterile dressing was placed. The patient tolerated the procedure well without evidence of immediate postprocedural complication. IV moderate sedation was administered with continuous personal physician supervision for 30 minutes throughout the procedure with Versed and fentanyl after assessment of the patient's airway was complete. Continuous pulse oximetry and capnography monitoring was performed under personal physician supervision. ESTIMATED BLOOD LOSS: Less than 5 mL COMPLICATIONS: None [facility] Mary Holliday MD - 10/18/2024 EXAMINATION: ACT ABSCESS DRAINAGE PERITONEAL PROCEDURE: 1. CT guided abscess drain placement. 2. Limited IR CT. HISTORY: 68-year-old with perforated appendicitis presenting for right lower quadrant abscess drain placement. COMPARISON: CT abdomen pelvis 10/18/2024 OPERATING PHYSICIAN: Mary Holliday MD MEDICATIONS: Lidocaine, local Fentanyl: 100 mcg Versed: 2 mg RADIATION DOSE: DLP: 540 mGycm TECHNIQUE/FINDINGS: Informed written consent was obtained from the patient and witnessed following a discussion of the benefits and potential risks of the procedure which include but are not limited to infection, bleeding, and injury to adjacent structures. The patient's concerns were addressed. The patient was brought to the angiography suite and placed in a supine position. A time-out and pause/confirm was performed according to hospital policy. Initial CT images demonstrate the right lower quadrant collection an appropriate skin entry site was selected and marked. The right lower abdomen was prepped and draped in usual sterile fashion. All elements of maximal sterile barrier techniques were followed and when used sterile ultrasound preparation was utilized. The skin and underlying soft tissues were anesthetized with lidocaine. Under iterative CT guidance, an 18 gauge needle was advanced into the collection yielding immediate return of cloudy yellow fluid. A sample was obtained and sent to the lab for analysis. An Amplatz wire was advanced through the needle and into the collection. The needle was removed. Following serial dilation, a 10 Syrian M type pigtail drainage catheter was advanced over the wire and into the collection. The wire and inner stiffener were removed and the pigtail locking mechanism engaged. The drain was connected to bulb suction and secured in place with a single nylon suture. An appropriate sterile dressing was placed. The patient tolerated the procedure well without evidence of immediate postprocedural complication. IV moderate sedation was administered with continuous personal physician supervision for 30 minutes throughout the procedure with Versed and fentanyl after assessment of the patient's airway was complete. Continuous pulse oximetry and capnography monitoring was performed under personal physician supervision. ESTIMATED BLOOD LOSS: Less than 5 mL COMPLICATIONS: None IMPRESSION: 1. Technically successful CT-guided 10 Syrian right lower quadrant abscess drain placement. Workstation ID: [id number] [facility] Radiology Study observation (narrative) [facility] ESR Westergren method (Bld) [Velocity]on 10-18-2024 ESR (Bld) [Velocity] 103 mm/h [facility] Interpretation and review of laboratory results Abnormal [facility] HEPATIC FUNCTION PANELon Albumin [Mass/Vol] 3.1 g/dL Low 3.2-5.2 [facility] Comment on above: Performed By: #### 4 [id number] #### [facility] [address] [place] [address] Felix Park M.D. [id number] ALP [Catalytic activity/Vol] 56 U/L Normal 40-150 [facility] Comment on above: Performed By: #### 4 [id number] #### [facility] [address] [place] [address] Felix Park M.D. [id number] ALT [Catalytic activity/Vol] 19 U/L Normal 0-50 U/L [facility] Comment on above: Performed By: #### 4 [id number] #### [facility] [address] [place] [address] Felix Park M.D. [id number] AST [Catalytic activity/Vol] 19 U/L Normal 0-50 U/L [facility] Comment on above: Performed By: #### 4 [id number] #### [facility] [address] [place] [address] Felix Park M.D. [id number] Bilirubin [Mass/Vol] 0.4 mg/dL Normal 0.0-1.3 [facility] Comment on above: Performed By: #### 4 [id number] #### [facility] [address] [place] [address] Felix Park M.D. [id number] BILIRUBIN, DIRECT < Normal 0.0-0.4 [facility] Comment on above: Performed By: #### 4 [id number] #### [facility] [address] [place] [address] Felix Park M.D. [id number] Protein [Mass/Vol] 6.2 g/dL Normal 6.0-8.0 [facility] Comment on above: Performed By: #### 4 [id number] #### [facility] [address] [place] [address] Felix Park M.D. [id number] Hepatic function 2000 panelO rdered By: Honey Villanueva on 10-18-2024 Albumin [Mass/Vol] 3.1 g/dL Low 3.2 - 5.2 g/dL [facility] ALP [Catalytic activity/Vol] 56 U/L 40 - 150 U/L [facility] ALT [Catalytic activity/Vol] 19 U/L 0-50 U/L [facility] AST [Catalytic activity/Vol] 19 U/L 0-50 U/L [facility] Bilirubin [Mass/Vol] 0.4 mg/dL 0.0 - 1 .3 mg/dL [facility] Bilirubin.conjugated [Mass/Vol] mg/dL 0.0 - 0.4 mg/dL [facility] Interpretation and review of laboratory results Abnormal [facility] Protein [Mass/Vol] 6.2 g/dL 6.0 - 8.0 g/dL [facility] INR Coag (PPP) [Relative sergei e]on 10-18-2024 Interpretation and review of laboratory results Abnormal [facility] PT Coag (PPP) [Time] 16.1 s High [facility] During the induction phase of oral anticoagulation, the INR may not reflect the anticoagulation status of the patient. Therapeutic ranges for INR's are: Most clinical situations: INR 2.0-3.0 Mechanical Prosthetic Valve: INR 2.5-3.5 Critical: INR >5.0 [facility] MAGNESIUM LEVELon 10-18-2024 Magnesium [Mass/Vol] 1.6 mg/dL Normal 1.6-2.4 [facility] Comment on above: Performed By: #### 4 6109 #### [facility] [address] [address] Abelino To M.D. [id number] MANUAL DIFFERENTIALon 2023 BASOPHILS - ABS (DIFF) 0.00 K/mcL Normal 0.00-0.30 [facility] Comment on above: Performed By: #### 4 5456 #### [facility] [address] [address] Abelino To M.D. [id number] BASOPHILS - REL (DIFF) 0.0 % Normal [facility] Comment on above: Performed By: #### 4 5456 #### [facility] [address] [address] Abelino To M.D. [id number] EOSINOPHILS - ABS (DIFF) 0.13 K/mcL Normal 0.00-0.50 [facility] Comment on above: Performed By: #### 4 5460 #### [facility] [address] [address] Abelino To M.D. [id number] EOSINOPHILS - REL (DIFF) 0.8 % Normal [facility] Comment on above: Performed By: #### 4 5435 #### [facility] [address] [address] Abelino To M.D. [id number] LYMPHOCYTES - ABS (DIFF) 0.81 K/mcL Low 0.90-4.00 [facility] Comment on above: Performed By: #### 4 5430 #### LAB [address] [place] [address] Abelino To M.D. [id number] LYMPHOCYTES - REL (DIFF) 5.1 % Normal [facility] Comment on above: Performed By: #### 4 2322 #### [facility] [address] [address] Abelino To M.D. [id number] METAMYELOCYTES-REL (DIFF) 2.6 % Normal [facility] Comment on above: Performed By: #### 4 5456 #### [facility] [address] [address] Abelino To M.D. [id number] MONOCYTES - ABS (DIFF) 1.23 K/mcL High 0.30-0.90 [facility] Comment on above: Performed By: #### 4 5456 ####[facility] [address] [address] Abelino To M.D. [id number] MONOCYTES - REL (DIFF) 7.7 % Normal [facility] Comment on above: Performed By: #### 4 5456 #### [facility] [address] [address] Abelino To M.D. [id number] MYELOCYTES RELATIVE PERCENT 4.3 % Normal [facility] Comment on above: Performed By: #### 4 5456 #### [facility] [address] [address] Abelino To M.D. [id number] NEUTROPHILS - ABS (DIFF) 13.81 K/mcL High 1.70-7.00 [facility] Comment on above: Performed By: #### 4 5456 #### [facility] [address] [address] Abelino To M.D. [id number] NEUTROPHILS - REL (DIFF) 79.5 % Normal [facility] Comment on above: Performed By: #### 4 5456 #### [facility] [address] [address] Abelino To M.D. [id number] MORPHOLOGYon 10-18-2024 PLATELET ESTIMATE Normal Normal [facility] Comment on above: Performed By: #### L AB295 #### [facility] [address] [address] Abelino To M.D. [id number] RBC MORPH SCAN Normal Normal [facility] Comment on above: Result Comment: RBC Indices confirmed with manual peripheral smear review. Performed By: #### L AB295 #### [facility] [address] [place], [place] [address] Abelino To M.D. [id number] Magnesiumon 10-18-2024 Magnesium [Mass/Vol] 1.6 mg/dL 1.6 - 2 .4 mg/dL [facility] Manual Differential panel (B ld)on 10-18-2024 Basophils (Bld) [#/Vol] 0 10*3/uL [facility] Basophils/100 WBC (Bld) 0 % [facility] Eosinophils (Bld) [#/Vol] 0.13 10*3/uL [facility] Eosinophils/100 WBC (Bld) 0.8 % [facility] Lymphocytes (Bld) [#/Vol] 0.81 10*3/uL Low [facility] Lymphocytes/100 WBC (Bld) 5.1 % [facility] Metamyelocytes/100 WBC (Bld) 2.6 % [facility] Monocytes (Bld) [#/Vol] 1.23 10*3/uL High [facility] Monocytes/100 WBC (Bld) 7.7 % [facility] Myelocytes/100 WBC (Bld) 4.3 % [facility] Neutrophils (Bld) [#/Vol] 13.81 10*3/uL High [facility] Neutrophils/100 WBC (Bld) 79.5 % [facility] No Panel Informationon 10-18 Interpretation and review of laboratory results Abnormal [facility] Interpretation and review of laboratory results Normal [facility] PHOSPHORUSon 10-18-2024 Phosphate [Mass/Vol] 3.7 mg/dL Normal 2.3-3.7 [facility] Comment on above: Performed By: #### 4 6299 #### [facility] [address] [place], [place] [address] Abelino To M.D. [id number] PT/INRon 10-18-2024 INR Coag (PPP) [Relative time] 1.3 {INR} High 0.8 - 1.1 [facility] INR Coag (PPP) [Relative time] 1.3 {INR} High 0.8-1.1 [facility] Comment on above: Order Comment: Injur y/Trauma or Illness?:Illness/Other How long have you had these symptoms (acute/chronic)?:Acute Reason for exam?:Known perforated appendix. Known prior abscess on imaging. No imaging available. Repeating to facilitate source control Type of Exam?:Initial Additional signs and symptoms?:order w AND w/o per provider Performed By: #### 4 6391 #### [facility] [address] [place], [place] [address] Abelino To M.D. [id number] PT Coag (PPP) [Time] 16.1 s High 11.8-14.3 [facility] Comment on above: Order Comment: Injur y/Trauma or Illness?:Illness/Other How long have you had these symptoms (acute/chronic)?:Acute Reason for exam?:Known perforated appendix. Known prior abscess on imaging. No imaging available. Repeating to facilitate source control Type of Exam?:Initial Additional signs and symptoms?:order w AND w/o per provider Performed By: #### 4 6391 #### [facility] [address] [address] Abelino To M.D. [id number] Phosphoruson 10-18-2024 Phosphate [Mass/Vol] 3.7 mg/dL 2.3 - 3 .7 mg/dL [facility] SEDIMENTATION RATEon 024 SEDIMENTATION RATE, ERYTHROCYTE 103 mm/hr High 0-20 [facility] Comment on above: Performed By: #### 4 4197 #### [facility] [address] [place] [address] Felix Park M.D. [id number] BASIC METABOLIC PANELon 09-30 Anion gap [Moles/Vol] 17 mmol/L Normal -[address] [facility] Comment on above: Order Comment: [facility] has implemented the eGFR calculation approach that does not have a coefficient for race that conforms to the NKF-ASN Task Force Recommendations. Performed By: #### 4 6124 #### [facility] [address] [place], [place] [address] Abelino To M.D. [id number] Calcium [Mass/Vol] 9.4 mg/dL Normal 8.4-10.2 [facility] Comment on above: Order Comment: [facility] has implemented the eGFR calculation approach that does not have a coefficient for race that conforms to the NKF-ASN Task Force Recommendations. Performed By: #### 4 6124 #### [facility] [address] [place], [place] [address] Abelino To M.D. [id number] Chloride [Moles/Vol] 99 mmol/L Normal 98-108 [facility] Comment on above: Order Comment: [facility] has implemented the eGFR calculation approach that does not have a coefficient for race that conforms to the NKF-ASN Task Force Recommendations. Performed By: #### 4 6124 #### [facility] [address] [place], [place] [address] Abelino To M.D. [id number] Creatinine [Mass/Vol] 1.12 mg/dL Normal 0.80-1.[address] [facility] Comment on above: Order Comment: [facility] has implemented the eGFR calculation approach that does not have a coefficient for race that conforms to the NKF-ASN Task Force Recommendations. Performed By: #### 4 6124 #### [facility] [address] [id number] Abelino To M.D. [id number] EGFR 71 mL/min/1.73 m2 Normal >=60 [facility] Comment on above: Order Comment: [facility] has implemented the eGFR calculation approach that does not have a coefficient for race that conforms to the NKF-ASN Task Force Recommendations. Result Comment: Jeremie mated GFR was calculated using the 2020 CKD-EPI creatinine equation. Performed By: #### 4 6124 #### [facility] [address] [place], [place] [address] Abelino To M.D. [id number] Glucose [Mass/Vol] 111 mg/dL High 65-99 [facility] Comment on above: Order Comment: [facility] has implemented the eGFR calculation approach that does not have a coefficient for race that conforms to the NKF-ASN Task Force Recommendations. Performed By: #### 4 6124 #### [facility] [address] [address] Abelino To M.D. [id number] HCO3 (Bld) [Moles/Vol] 24 mmol/L Normal 21-32 [facility] Comment on above: Order Comment: [facility] has implemented the eGFR calculation approach that does not have a coefficient for race that conforms to the NKF-ASN Task Force Recommendations. Performed By: #### 4 6124 #### [facility] [address] [address] Abelino To M.D. [id number] Potassium [Moles/Vol] 4.3 mmol/L Normal 3.5-5.[address] [facility] Comment on above: Order Comment: [facility] has implemented the eGFR calculation approach that does not have a coefficient for race that conforms to the NKF-ASN Task Force Recommendations. Performed By: #### 4 6124 #### [facility] [address] [address] Abelino To M.D. [id number] Sodium [Moles/Vol] 136 mmol/L Normal 135-145 [facility] Comment on above: Order Comment: [facility] has implemented the eGFR calculation approach that does not have a coefficient for race that conforms to the NKF-ASN Task Force Recommendations. Performed By: #### 4 6124 #### [facility] [address] [address] Abelino To M.D. [id number] Urea nitrogen [Mass/Vol] 25 mg/dL Normal 8-25 [facility] Comment on above: Order Comment: [facility] has implemented the eGFR calculation approach that does not have a coefficient for race that conforms to the NKF-ASN Task Force Recommendations. Performed By: #### 4 6124 #### [facility] [address] [address] Abelino To M.D. [id number] Urea nitrogen/Creatinine [Mass ratio] 22.3 mg/mg High 10.0-20.0 [facility] Comment on above: Order Comment: [facility] has implemented the eGFR calculation approach that does not have a coefficient for race that conforms to the NKF-ASN Task Force Recommendations. Performed By: #### 4 6124 ####[facility] [address] [place], [place] [address] Abelino To M.D. [id number] Basic metabolic 2000 panelon 10-17-2024 Anion gap [Moles/Vol] 17 mmol/L 10 - 2 0 mmol/L [facility] Calcium [Mass/Vol] 9.4 mg/dL 8.4 - 10. 2 mg/dL [facility] Chloride [Moles/Vol] 99 mmol/L 98 - 10 8 mmol/L [facility] Creatinine [Mass/Vol] 1.12 mg/dL 0.80 - 1.30 mg/dL [facility] GFR/1.73 sq M.predicted CKD-EPI (S/P/Bld) [Vol rate/Area] 71 - PINF [facility] Comment on above: Estimated GFR was ca lculated using the 2020 CKD-EPI creatinine equation. Glucose [Mass/Vol] 111 mg/dL High 65 - 99 mg/dL [facility] HCO3 [Moles/Vol] 24 mmol/L 21 - 32 mmol/L [facility] Potassium [Moles/Vol] 4.3 mmol/L 3.5 - 5.1 mmol/L [facility] Sodium [Moles/Vol] 136 mmol/L 135 - 145 mmol/L [facility] Urea nitrogen [Mass/Vol] 25 mg/dL 8 - 25 mg/dL [facility] Urea nitrogen/Creatinine [Mass ratio] 22.3 mg/mg High 10.0 - 20.0 [facility] has implemented the eGFR calculation approach that does not have a coefficient for race that conforms to the NKF-ASN Task Force Recommendations. [facility] Anion gap [Moles/Vol] 10 mmol/L 10 - 2 0 mmol/L [facility] Calcium [Mass/Vol] 8.5 mg/dL Low 8.6 - 10. 3 mg/dL [facility] Chloride [Moles/Vol] 104 mmol/L 98 - 10 7 mmol/L [facility] CO2 [Moles/Vol] 25 mmol/L 21 - 32 mmol/L [facility] Creatinine [Mass/Vol] 0.98 mg/dL 0.50 - 1.30 mg/dL [facility] GFR/1.73 sq M.predicted among non-blacks MDRD (S/P/Bld) [Vol rate/Area] 83 mL/min/{1.73_m2} - PINF [facility] Comment on above: Calculations of jeremie mated GFR are performed using the 2020 CKD-EPI Study Refit equation without the race variable for the IDMS-Traceable creatinine methods. https://jasn.asnjournals.org/content/early/ASN.2020 758256 Glucose [Mass/Vol] 135 mg/dL High 74 - 99 mg/dL [facility] Interpretation and review of laboratory results Abnormal [facility] Potassium [Moles/Vol] 4 mmol/L 3.5 - 5.3 mmol/L [facility] Sodium [Moles/Vol] 135 mmol/L Low 136 - 145 mmol/L [facility] Urea nitrogen [Mass/Vol] 21 mg/dL 6 - 23 mg/dL [facility] Anion gap [Moles/Vol] 10 mmol/L Normal 10-20 [facility] Comment on above: Performed By: #### 3 040-3 #### SU SCHNEIDER ([id number]) [facility] ([facility]) [facility] [place] [address] Calcium [Mass/Vol] 8.5 mg/dL Low 8.6-10.3 [facility] Comment on above: Performed By: #### 3 040-3 #### SU SCHNEIDER ([id number]) [facility] ([facility]) [address] [place] [address] Chloride [Moles/Vol] 104 mmol/L Normal 98-107 [facility] Comment on above: Performed By: #### 3 040-3 #### SU SCHNEIDER ([id number]) [facility] ([facility]) [address] [place] [address] CO2 [Moles/Vol] 25 mmol/L Normal 21-32 [facility] Comment on above: Performed By: #### 3 040-3 #### SU SCHNEIDER ([id number]) [facility] ([facility]) [facility] [place] [address] Creatinine [Mass/Vol] 0.98 mg/dL Normal 0.50-1.30 [facility] Comment on above: Performed By: #### 3 040-3 #### SU SCHNEIDER ([id number]) [facility] ([facility]) [address] [place] [address] Glomerular filtration rate/1.73 sq M.predicted 83 mL/min/1.73m*2 Normal >60 [facility] Comment on above: Result Comment: Calc ulations of estimated GFR are performed using the 2020 CKD-EPI Study Refit equation without the race variable for the IDMS-Traceable creatinine methods. https://jasn.asnjournals.org/content/early//ASN.2020 500234 Performed By: #### 3 040-3 #### SU SCHNEIDER ([id number]) [facility] ([facility]) [address] [place] [address] Glucose [Mass/Vol] 135 mg/dL High 74-99 [facility] Comment on above: Performed By: #### 3 040-3 #### SU SCHNEIDER ([id number]) [facility] ([facility]) [address] [place] [address] Potassium [Moles/Vol] 4.0 mmol/L Normal 3.5-5.3 [facility] Comment on above: Performed By: #### 3 040-3 #### SU SCHNEIDER ([id number]) [facility] ([facility]) [facility] [place] [address] Sodium [Moles/Vol] 135 mmol/L Low 136-145 [facility] Comment on above: Performed By: #### 3 040-3 #### SU SCHNEIDER ([id number]) [facility] ([facility]) [facility] [place] [address] Urea nitrogen [Mass/Vol] 21 mg/dL Normal 6-23 [facility] Comment on above: Performed By: #### 3 040-3 #### BLUE WYATT ([id number]) [facility] ([facility]) [address] [place] [address] CBC Auto Differentialon 09-30 Erythrocyte distribution width (RBC) [Entitic vol] 12.4 % 11.6 - 14.8 % [facility] Hematocrit (Bld) [Volume fraction] 37.7 % Low 41.0 - 53.0 % [facility] Hemoglobin (Bld) [Mass/Vol] 12.5 g/dL Low 13.5 - 17.5 g/dL [facility] MCH (RBC) [Entitic mass] 31.8 pg 26.0 - 34.0 pg [facility] MCHC (RBC) [Mass/Vol] 33.2 g/dL 31.0 - 37.0 g/dL [facility] MCV (RBC) [Entitic vol] 95.9 fL 80.0 - 100.0 fL [facility] Nucleated RBC (Bld) [#/Vol] 0 10*3/uL [facility] Nucleated RBC/100 WBC (Bld) [Ratio] 0 % [facility] Platelet mean volume (Bld) [Entitic vol] 9.9 fL 9.4 - 12.4 fL [facility] Platelets (Bld) [#/Vol] 359 10*3/uL [facility] RBC (Bld) [#/Vol] 3.93 10*6/uL Low [facility] WBC (Bld) [#/Vol] 17.72 10*3/uL [facility] CBC WITH AUTO DIFFERENTIALon 10-17-2024 AUTO NRBC 0.0 % Normal [facility] Comment on above: Performed By: #### L [id number] #### LAB [address] [place], [place] [address] Abelino To M.D. [id number] AUTO NRBC ABS COUNT 0.00 K/mcL Normal 0.00-0.00 [facility] Comment on above: Performed By: #### L [id number] #### LAB [address] [place], [place] [address] Abelino To M.D. [id number] Erythrocyte distribution width (RBC) [Ratio] 12.4 % Normal 11.6-14.8 [facility] Comment on above: Performed By: #### L [id number] #### LAB [address] [place] [address] Abelino To M.D. [id number] Hematocrit (Bld) [Volume fraction] 37.7 % Low 41.0-53.0 [facility] Comment on above: Performed By: #### L [id number] #### LAB [address] [place] [address] Abelino To M.D. [id number] Hemoglobin (Bld) [Mass/Vol] 12.5 g/dL Low 13.5-17.5 [facility] Comment on above: Performed By: #### L [id number] #### LAB [address] [place] [address] Abelino To M.D. [id number] MCH (RBC) [Entitic mass] 31.8 pg Normal 26.0-34.0 [facility] Comment on above: Performed By: #### L [id number] #### LAB [address] [place] [address] Abelino To M.D. [id number] MCV (RBC) [Entitic vol] 95.9 fL Normal 80.0-100.0 [facility] Comment on above: Performed By: #### L [id number] #### LAB [address] [place] [address] Abelino To M.D. [id number] MEAN CORPUSCULAR HEMOGLOBIN CONC 33.2 g/dL Normal 31.0-37.0 [facility] Comment on above: Performed By: #### L [id number] #### LAB [address] [place] [address] Abelino To M.D. [id number] Platelet mean volume (Bld) [Entitic vol] 9.9 fL Normal 9.4-12.4 [facility] Comment on above: Performed By: #### L [id number] #### LAB [address] [place] [address] Abelino To M.D. [id number] Platelets (Bld) [#/Vol] 359 10*3/uL Normal 150-400 [facility] Comment on above: Performed By: #### L [id number] #### LAB [address] [place], [place] [address] Abelino To M.D. [id number] RBC (Bld) [#/Vol] 3.93 10*6/uL Low 4.50-5.90 [facility] Comment on above: Performed By: #### L [id number] ####[facility] [address] [place], [place] [address] Abelino To M.D. [id number] WBC (Bld) [#/Vol] 17.72 10*3/uL High 4.50-11.00 [facility] Comment on above: Performed By: #### L [id number] #### LAB [address] [place], [place] [address] Abelino To M.D. [id number] CBC and Diff Morphologyon Platelets LM Ql (Bld) Normal Normal [facility] RBC morphology finding Nom (Bld) Normal [facility] Comment on above: RBC Indices confirme d with manual peripheral smear review. CBC panel Auto (Bld)on 10-17 Erythrocyte distribution width (RBC) [Ratio] 12.3 % 11.5 - 14.5 % [facility] Hematocrit (Bld) [Volume fraction] 34.2 % Low 41.0 - 52.0 % [facility] Hemoglobin (Bld) [Mass/Vol] 11.3 g/dL Low 13.5 - 17.5 g/dL [facility] Interpretation and review of laboratory results Abnormal [facility] MCH (RBC) [Entitic mass] 32 pg 26.0 - 34.0 pg [facility] MCHC (RBC) [Mass/Vol] 33 g/dL 32.0 - 36.0 g/dL [facility] MCV (RBC) [Entitic vol] 97 fL 80 - 100 fL [facility] Nucleated RBC/100 WBC (Bld) [Ratio] 0 % [facility] Platelets (Bld) [#/Vol] 275 10*3/uL [facility] RBC (Bld) [#/Vol] 3.53 10*6/uL Low [facility] WBC (Bld) [#/Vol] 16 10*3/uL High [facility] Erythrocyte distribution width (RBC) [Ratio] 12.3 % Normal 11.5-14.5 [facility] Comment on above: Performed By: #### 3 040-3 #### SU SCHNEIDER ([id number]) [facility] ([facility]) [address] [place] [address] Hematocrit (Bld) [Volume fraction] 34.2 % Low 41.0-52.0 [facility] Comment on above: Performed By: #### 3 040-3 #### SU SCHNEIDER ([id number]) [facility] ([facility]) [address] [place] [address] Hemoglobin (Bld) [Mass/Vol] 11.3 g/dL Low 13.5-17.5 [facility] Comment on above: Performed By: #### 3 040-3 #### SU SCHNEIDER ([id number]) [facility] ([facility]) [address] [place] [address] MCH (RBC) [Entitic mass] 32.0 pg Normal 26.0-34.0 [facility] Comment on above: Performed By: #### 3 040-3 #### SU SCHNEIDER ([id number]) [facility] ([facility]) [address] [place] [address] MCHC (RBC) [Mass/Vol] 33.0 g/dL Normal 32.0-36.0 [facility] Comment on above: Performed By: #### 3 040-3 #### SU SCHNEIDER ([id number]) [facility] ([facility]) [address] [place] [address] MCV (RBC) [Entitic vol] 97 fL Normal 80-100 [facility] Comment on above: Performed By: #### 3 040-3 #### SU SCHNEIDER ([id number]) [facility] ([facility]) [address] [place] [address] Nucleated RBC/100 WBC (Bld) [Ratio] 0.0 /100 WBCs Normal 0.0-0.0 [facility] Comment on above: Performed By: #### 3 040-3 #### SU SCHNEIDER ([id number]) [facility] ([facility]) [address] [place] [address] Platelets (Bld) [#/Vol] 275 x10*3/uL Normal 150-450 [facility] Comment on above: Performed By: #### 3 040-3 #### US SCHNEIDER ([id number]) [facility] ([facility]) [address] [place] [address] RBC (Bld) [#/Vol] 3.53 x10*6/uL Low 4.50-5.90 [facility] Comment on above: Performed By: #### 3 040-3 #### SU SCHNEIDER ([id number]) [facility] ([facility]) [address] [place] [address] WBC (Bld) [#/Vol] 16.0 x10*3/uL High 4.4-11.3 [facility] Comment on above: Performed By: #### 3 040-3 #### SU SCHNEIDER ([id number]) [facility] ([facility]) [address] [place] [address] CRP, INFLAMMATIONon 10-17-20 24 CRP [Mass/Vol] 151.0 mg/L High 0.0-10.0 [facility] Comment on above: Performed By: #### 4 5334 #### LAB [address] [place], [place] [address] Abelino To M.D. [id number] CRP, Inflammationon 10-17-20 24 CRP [Mass/Vol] 151 mg/L High 0.0 - 10.0 mg/L [facility] CT ABDOMEN PELVIS WITH AND W ITHOUT IV CONTRAST ONLYon 10-17-2024 CT ABDOMEN PELVIS WITH AND WITHOUT IV CONTRAST ONLY EXAMINATION: CT ABDOMEN PELVIS WITH AND WITHOUT IV CONTRAST ONLY HISTORY: ORDERING SYSTEM PROVIDED HISTORY: Known perforated appendix. Known prior abscess on imaging. No imaging available. Repeating to facilitate source control, TECHNOLOGIST PROVIDED HISTORY: Illness/Other Reason for exam: Known perforated appendix. Known prior abscess on imaging. No imaging available. Repeating to facilitate source control Encounter Type: Initial Additional signs and symptoms: order w AND w/o per provider ORDERING SYSTEM PROVIDED DIAGNOSIS CODES: COMPARISON: 10/17/2024 from outside facility TECHNIQUE: Prior to and following the uneventful administration of 75 mL Isovue-370 IV contrast, helical imaging of the abdomen and pelvis was performed. Multiplanar reformats are submitted. Dose reduction techniques were achieved by using: automated exposure control and/or adjustment of mA and/or kV according to patient size and/or use of iterative reconstruction technique. FINDINGS: ABDOMEN: Trace right pleural effusion with adjacent atelectasis. Lung bases otherwise clear. Heart size is stable. No pericardial effusion. The liver demonstrates normal morphology and attenuation without focal suspicious hepatic lesion. Simple appearing cysts are present. The gallbladder is present without calcified gallstone or pericholecystic abnormality. The spleen is normal in size with calcified granulomata. The pancreas is unremarkable there is a lipid rich right adrenal nodule. The kidneys demonstrate symmetric enhancement. Bilateral simple appearing renal cysts are present. No obstructive uropathy identified. PELVIS: No free air bowel obstruction is evident. No pneumatosis identified. Dilated appendix with appendiceal wall thickening and Steffany appendiceal inflammatory changes is unchanged. Ill-defined developing rim enhancing fluid is noted within the right pericolic gutter, measures 12 cm in maximum dimension. This is relatively unchanged from prior study. There is a small mesenteric developing fluid collection (series 3, image 89). None, also unchanged from recent study. In the left lower quadrant, there is developing rim enhancing fluid measuring 5.6 cm in maximum dimension. This may tract to a smaller fluid collection in the deep pelvis measuring 5 cm in maximum dimension. Colonic diverticulosis is noted. The bladder is well distended and thin walled. The prostate gland is enlarged. Probable reactive external iliac lymph nodes bilaterally. Reactive mesenteric lymph nodes. No definite evidence of lymphadenopathy. The abdominal aorta is normal in caliber with mild to moderate atherosclerosis. No acute or aggressive osseous abnormality identified. IMPRESSION: 1. Findings consistent with acute perforated appendicitis with multiple probable developing intraabdominal abscess is, the largest in the right paracolic gutter as described above. Overall, no significant change when compared with CT scan from outside facility yesterday. 2. Other incidental findings as above Workstation ID: [id number] Dictated by: TYLER LOUIS on Hien Oct 18, 2024 8:44:25 AM EST Transcribed by: TYLER LOUIS on Hien Oct 18, 2024 8:44:25 AM EST Finalized by: TYLER LOUIS on Hien Oct 18, 2024 8:44:25 AM EST Normal [facility] Comment on above: Order Comment: Injur y/Trauma or Illness?:Illness/Other How long have you had these symptoms (acute/chronic)?:Acute Reason for exam?:Known perforated appendix. Known prior abscess on imaging. No imaging available. Repeating to facilitate source control Type of Exam?:Initial Additional signs and symptoms?:order w AND w/o per provider CT ABDOMEN PELVIS WO IV CONT [facility] 10-17-2024 CT ABDOMEN PELVIS WO IV CONTRAST Interpreted By: Fran Sebastian, STUDY: CT ABDOMEN PELVIS WO IV CONTRAST; 10/17/2024 2:05 pm INDICATION: Signs/Symptoms:perfor ated appendicitis r/o abscess. oral contrast. COMPARISON: CT 10/11/2024 ACCESSION NUMBER(S): [id number] ORDERING CLINICIAN: HONEY SHI TECHNIQUE: CT of the abdomen and pelvis was performed. Contiguous axial images were obtained at 3 mm slice thickness through the abdomen and pelvis. Coronal and sagittal reconstructions at 3 mm slice thickness were performed. No intravenous contrast was administered; positive oral contrast was given. FINDINGS: Please note that the evaluation of vessels, lymph nodes and organs is limited without intravenous contrast. LOWER CHEST: Small right pleural effusion with bibasilar atelectasis. ABDOMEN: LIVER: Scattered fluid densities and hypodensities too small to characterize likely representing cysts. BILE DUCTS: Normal caliber. GALLBLADDER: No calcified stones. No wall thickening. PANCREAS: Within normal limits. SPLEEN: Scattered calcified granulomata. ADRENAL GLANDS: Right adrenal adenoma. Normal left adrenal gland. KIDNEYS AND URETERS: Bilateral fluid densities and hypodensities too small to characterize likely representing cysts. Trace bilateral perinephric fat stranding. No hydronephrosis or nephrolithiasis. PELVIS: BLADDER: The urinary bladder demonstrates wall thickening and pericystic stranding concerning for cystitis. REPRODUCTIVE ORGANS: Prostatomegaly. BOWEL: The stomach is unremarkable. No dilated small bowel loops or air-fluid levels. Distended appendix with periappendiceal stranding and punctate periappendiceal pneumoperitoneum. VESSELS: Normal unenhanced appearance with mild calcifications. PERITONEUM/RETROPERIT ONEUM/LYMPH NODES: Punctate right lower quadrant pneumoperitoneum (series 2, image 108, series 2, image 71, and series 2, image 101). Interval development of mild volume complex ascites. ABDOMINAL WALL: The abdominal wall soft tissues appear normal. BONES: No suspicious osseous lesions are identified. Degenerative discogenic disease is noted in the lower thoracic and lumbar spine. IMPRESSION: 1. Perforated appendicitis with pneumoperitoneum and interval development of mild volume complex peritoneal fluid. Recommend clinical and laboratory correlation for peritonitis versus early developing abscess. MACRO: None Signed by: Fran Sebastian 10/17/2024 8:35 PM Dictation workstation: [id number] [facility] Comment on above: Order Comment: Venip uncture immediately after or during the administration of Metamizole may lead to falsely low results. Testing should be performed immediately prior to Metamizole dosing. ESR Westergren method (Bld) [Velocity]on 10-17-2024 ESR (Bld) [Velocity] 55 mm/h [facility] Interpretation and review of laboratory results Abnormal [facility] HEPATIC FUNCTION PANELon Albumin [Mass/Vol] 3.4 g/dL Normal 3.2-5.2 [facility] Comment on above: Performed By: #### 4 5866 ####[facility] [address] [place], [place] [address] Abelino To M.D. [id number] ALP [Catalytic activity/Vol] 65 U/L Normal 40-150 [facility] Comment on above: Performed By: #### 4 5866 ####[facility] [address] [place], [place] [address] Abelino To M.D. [id number] ALT [Catalytic activity/Vol] 20 U/L Normal 0-50 U/L [facility] Comment on above: Performed By: #### 4 5866 ####[facility] [address] [place], [place] [address] Abelino To M.D. [id number] AST [Catalytic activity/Vol] 24 U/L Normal 0-50 U/L [facility] Comment on above: Performed By: #### 4 5866 #### LAB [address] [place] [id number] Abelino To M.D. [id number] Bilirubin [Mass/Vol] 0.3 mg/dL Normal 0.0-1.3 [facility] Comment on above: Performed By: #### 4 5866 #### LAB [address] [place] [address] Abelino To M.D. [id number] BILIRUBIN, DIRECT < Normal 0.0-0.4 [facility] Comment on above: Performed By: #### 4 5866 #### LAB [address] [place] [address] Abelino To M.D. [id number] Protein [Mass/Vol] 6.9 g/dL Normal 6.0-8.0 [facility] Comment on above: Performed By: #### 4 5866 #### LAB [address] [place] [address] Abelino To M.D. [id number] Hepatic function 2000 panelO rdered By: Kristina Hernandez on 10-17-2024 Albumin [Mass/Vol] 3.4 g/dL 3.2 - 5.2 g/dL [facility] ALP [Catalytic activity/Vol] 65 U/L 40 - 150 U/L [facility] ALT [Catalytic activity/Vol] 20 U/L 0-50 U/L [facility] AST [Catalytic activity/Vol] 24 U/L 0-50 U/L [facility] Bilirubin [Mass/Vol] 0.3 mg/dL 0.0 - 1 .3 mg/dL [facility] Bilirubin.conjugated [Mass/Vol] mg/dL 0.0 - 0.4 mg/dL [facility] Interpretation and review of laboratory results Normal [facility] Protein [Mass/Vol] 6.9 g/dL 6.0 - 8.0 g/dL [facility] MAGNESIUM LEVELon 10-17-2024 Magnesium [Mass/Vol] 1.6 mg/dL Normal 1.6-2.4 [facility] Comment on above: Performed By: #### 4 6109 #### LAB [address] [place] [address] Abelino To M.D. [id number] MANUAL DIFFERENTIALon 2023 BASOPHILS - ABS (DIFF) 0.16 K/mcL Normal 0.00-0.30 [facility] Comment on above: Performed By: #### 4 5456 #### LAB [address] [place] [address] Abelino To M.D. [id number] BASOPHILS - REL (DIFF) 0.9 % Normal [facility] Comment on above: Performed By: #### 4 5456 #### LAB [address] [place] [address] Abelino To M.D. [id number] EOSINOPHILS - ABS (DIFF) 0.14 K/mcL Normal 0.00-0.50 [facility] Comment on above: Performed By: #### 4 5456 #### LAB [address] [place] [address] Abelino To M.D. [id number] EOSINOPHILS - REL (DIFF) 0.8 % Normal [facility] Comment on above: Performed By: #### 4 5424 #### LAB [address] [place] [address] Abelino To M.D. [id number] LYMPHOCYTES - ABS (DIFF) 1.51 K/mcL Normal 0.90-4.00 [facility] Comment on above: Performed By: #### 4 5422 #### LAB [address] [place] [address] Abelino To M.D. [id number] LYMPHOCYTES - REL (DIFF) 8.5 % Normal [facility] Comment on above: Performed By: #### 4 0026 #### LAB [address] [place] [address] Abelino To M.D. [id number] MONOCYTES - ABS (DIFF) 1.36 K/mcL High 0.30-0.90 [facility] Comment on above: Performed By: #### 4 8838 #### LAB [address] [place] [id number] Abelino To M.D. [id number] MONOCYTES - REL (DIFF) 7.7 % Normal [facility] Comment on above: Performed By: #### 4 5456 #### LAB [address] [place] [address] Abelino To M.D. [id number] MYELOCYTES RELATIVE PERCENT 0.9 % Normal [facility] Comment on above: Performed By: #### 4 5456 ####[facility] [address] [place] [address] Abelino To M.D. [id number] NEUTROPHILS - ABS (DIFF) 14.55 K/mcL High 1.70-7.00 [facility] Comment on above: Performed By: #### 4 5456 #### LAB [address] [place] [address] Abelino To M.D. [id number] NEUTROPHILS - REL (DIFF) 81.2 % Normal [facility] Comment on above: Performed By: #### 4 5456 #### LAB [address] [place] [address] Abelino To M.D. [id number] MORPHOLOGYon 10-17-2024 PLATELET ESTIMATE Normal Normal Normal [facility] Comment on above: Performed By: #### L AB295 #### LAB [address] [place] [address] Abelino To M.D. [id number] RBC MORPH SCAN Normal Normal [facility] Comment on above: Result Comment: RBC Indices confirmed with manual peripheral smear review. Performed By: #### L AB295 #### LAB [address] [place] [address] Abelino To M.D. [id number] Magnesiumon 10-17-2024 Magnesium [Mass/Vol] 1.6 mg/dL 1.6 - 2 .4 mg/dL [facility] Manual Differential panel (B ld)on 10-17-2024 Basophils (Bld) [#/Vol] 0.16 10*3/uL [facility] Basophils/100 WBC (Bld) 0.9 % [facility] Eosinophils (Bld) [#/Vol] 0.14 10*3/uL [facility] Eosinophils/100 WBC (Bld) 0.8 % [facility] Lymphocytes (Bld) [#/Vol] 1.51 10*3/uL [facility] Lymphocytes/100 WBC (Bld) 8.5 % [facility] Monocytes (Bld) [#/Vol] 1.36 10*3/uL High [facility] Monocytes/100 WBC (Bld) 7.7 % [facility] Myelocytes/100 WBC (Bld) 0.9 % [facility] Neutrophils (Bld) [#/Vol] 14.55 10*3/uL High [facility] Neutrophils/100 WBC (Bld) 81.2 % [facility] No Panel Informationon 10-17 Interpretation and review of laboratory results Abnormal [facility] Interpretation and review of laboratory results Abnormal [facility] Interpretation and review of laboratory results Normal [facility] PHOSPHORUSon 10-17-2024 Phosphate [Mass/Vol] 3.7 mg/dL Normal 2.3-3.7 [facility] Comment on above: Performed By: #### 4 6299 #### LAB [address] [place], [place] [address] Abelino To M.D. [id number] PROCALCITONINon 10-17-2024 PROCALCITONIN 0.47 ng/ml Normal <0.50 [facility] Comment on above: Order Comment: Resul ts <0.50 ng/ml represent a low risk of severe sepsis and/or septic shock. Performed By: #### 4 4197 #### [facility] [address] [place], [place] [address] [place] M.D. [id number] Phosphoruson 10-17-2024 Phosphate [Mass/Vol] 3.7 mg/dL 2.3 - 3 .7 mg/dL [facility] Procalcitoninon 10-17-2024 Procalcitonin [Mass/Vol] 0.47 ng/mL NINF - 0.50 ng/ml [facility] Procalcitonin [Mass/Vol]on 12-18-2023 Interpretation and review of laboratory results Normal [facility] Results <0.50 ng/ml represent a low risk of severe sepsis and/or septic shock. [facility] SEDIMENTATION RATEon 024 SEDIMENTATION RATE, ERYTHROCYTE 55 mm/hr High 0-20 [facility] Comment on above: Performed By: #### 4 4197 #### [facility] [address] [address] [place] M.D. [id number] Basic metabolic 2000 panelon 10-16-2024 Anion gap [Moles/Vol] 13 mmol/L 10 - 2 0 mmol/L [facility] Calcium [Mass/Vol] 8.7 mg/dL 8.6 - 10. 3 mg/dL [facility] Chloride [Moles/Vol] 103 mmol/L 98 - 10 7 mmol/L [facility] CO2 [Moles/Vol] 25 mmol/L 21 - 32 mmol/L [facility] Creatinine [Mass/Vol] 1.2 mg/dL 0.50 - 1.30 mg/dL [facility] GFR/1.73 sq M.predicted among non-blacks MDRD (S/P/Bld) [Vol rate/Area] 65 mL/min/{1.73_m2} - PINF [facility] Comment on above: Calculations of jeremie mated GFR are performed using the 2020 CKD-EPI Study Refit equation without the race variable for the IDMS-Traceable creatinine methods. https://jasn.asnjournals.org/content//ASN.2020 343535 Glucose [Mass/Vol] 115 mg/dL High 74 - 99 mg/dL [facility] Interpretation and review of laboratory results Abnormal [facility] Potassium [Moles/Vol] 4 mmol/L 3.5 - 5.3 mmol/L [facility] Sodium [Moles/Vol] 137 mmol/L 136 - 145 mmol/L [facility] Urea nitrogen [Mass/Vol] 20 mg/dL 6 - 23 mg/dL [facility] Anion gap [Moles/Vol] 13 mmol/L Normal 10-20 [facility] Comment on above: Performed By: #### 2 4323-8 #### SU SCHNEIDER ([id number]) [facility] ([facility]) [address] [place] [address] Calcium [Mass/Vol] 8.7 mg/dL Normal 8.6-10.3 [facility] Comment on above: Performed By: #### 2 4323-8 #### SU SCHNEIDER ([id number]) [facility] ([facility]) [address] [place] [address] 99852 Chloride [Moles/Vol] 103 mmol/L Normal 98-107 [facility] Comment on above: Performed By: #### 2 4323-8 #### SU SCHNEIDER ([id number]) [facility] ([facility]) [address] [place] [address] 20477 CO2 [Moles/Vol] 25 mmol/L Normal 21-32 [facility] Comment on above: Performed By: #### 2 4323-8 #### SU SCHNEIDER ([id number]) [facility] ([facility]) [address] [place] [address] 33166 Creatinine [Mass/Vol] 1.20 mg/dL Normal 0.50-1.30 [facility] Comment on above: Performed By: #### 2 4323-8 #### SU SCHNEIDER ([id number]) [facility] ([facility]) [address] [place] [address] 38511 Glomerular filtration rate/1.73 sq M.predicted 65 mL/min/1.73m*2 Normal >60 [facility] Comment on above: Result Comment: Calc ulations of estimated GFR are performed using the 2020 CKD-EPI Study Refit equation without the race variable for the IDMS-Traceable creatinine methods. https://jasn.asnjournals.org/content//ASN.2020 535068 Performed By: #### 2 4323-8 #### SU SCHNEIDER ([id number]) [facility] ([facility]) [facility] [place] [address] Glucose [Mass/Vol] 115 mg/dL High 74-99 [facility] Comment on above: Performed By: #### 2 4323-8 #### SU SCHNEIDER ([id number]) [facility] ([facility]) [facility] [place] [address] Potassium [Moles/Vol] 4.0 mmol/L Normal 3.5-5.3 [facility] Comment on above: Performed By: #### 2 4323-8 #### SU SCHNEIDER ([id number]) [facility] ([facility]) [address] [place], [place] [address] Sodium [Moles/Vol] 137 mmol/L Normal 136-145 [facility] Comment on above: Performed By: #### 2 4323-8 #### SU SCHNEIDER ([id number]) [facility] ([facility]) [address] [place], [place] [address] Urea nitrogen [Mass/Vol] 20 mg/dL Normal 6-23 [facility] Comment on above: Performed By: #### 2 4323-8 #### SU SCHNEIDER ([id number]) [facility] ([facility]) [address] [place] [address] CBC panel Auto (Bld)on 10-16 Erythrocyte distribution width (RBC) [Ratio] 12.2 % 11.5 - 14.5 % [facility] Hematocrit (Bld) [Volume fraction] 35.5 % Low 41.0 - 52.0 % [facility] Hemoglobin (Bld) [Mass/Vol] 11.9 g/dL Low 13.5 - 17.5 g/dL [facility] Interpretation and review of laboratory results Abnormal [facility] MCH (RBC) [Entitic mass] 32.1 pg 26.0 - 34.0 pg [facility] MCHC (RBC) [Mass/Vol] 33.5 g/dL 32.0 - 36.0 g/dL [facility] MCV (RBC) [Entitic vol] 96 fL 80 - 100 fL [facility] Nucleated RBC/100 WBC (Bld) [Ratio] 0 % [facility] Platelets (Bld) [#/Vol] 248 10*3/uL [facility] RBC (Bld) [#/Vol] 3.71 10*6/uL Low [facility] WBC (Bld) [#/Vol] 14.1 10*3/uL High [facility] Erythrocyte distribution width (RBC) [Ratio] 12.2 % Normal 11.5-14.5 [facility] Comment on above: Performed By: #### 2 4323-8 #### SU SCHNEIDER ([id number]) [facility] ([facility]) [address] [place] [address] Hematocrit (Bld) [Volume fraction] 35.5 % Low 41.0-52.0 [facility] Comment on above: Performed By: #### 2 4322-8 #### SU SCHNEIDER ([id number]) [facility] ([facility]) [address] [place] [address] Hemoglobin (Bld) [Mass/Vol] 11.9 g/dL Low 13.5-17.5 [facility] Comment on above: Performed By: #### 2 4322-8 #### SU SCHNEIDER ([id number]) [facility] ([facility]) [address] [place] [address] 81725 MCH (RBC) [Entitic mass] 32.1 pg Normal 26.0-34.0 [facility] Comment on above: Performed By: #### 2 432-8 #### SU SCHNEIDER ([id number]) [facility] ([facility]) [address] [place] [address] 78454 MCHC (RBC) [Mass/Vol] 33.5 g/dL Normal 32.0-36.0 [facility] Comment on above: Performed By: #### 2 4323-8 #### SU SCHNEIDER ([id number]) [facility] ([facility]) [address] [place] [address]126 MCV (RBC) [Entitic vol] 96 fL Normal 80-100 [facility] Comment on above: Performed By: #### 2 4323-8 #### SU SCHNEIDER ([id number]) [facility] ([facility]) [address] [place] [address] 18832 Nucleated RBC/100 WBC (Bld) [Ratio] 0.0 /100 WBCs Normal 0.0-0.0 [facility] Comment on above: Performed By: #### 2 4323-8 #### SU SCHNEIDER ([id number]) [facility] ([facility]) [address] [place] [address] 49320 Platelets (Bld) [#/Vol] 248 x10*3/uL Normal 150-450 [facility] Comment on above: Performed By: #### 2 4323-8 #### SU SCHNEIDER ([id number]) [facility] ([facility]) [address] [place] [address] 87969 RBC (Bld) [#/Vol] 3.71 x10*6/uL Low 4.50-5.90 [facility] Comment on above: Performed By: #### 2 4323-8 #### SU SCHNEIDER ([id number]) [facility] ([facility]) [address] [place] [address] 12111 WBC (Bld) [#/Vol] 14.1 x10*3/uL High 4.4-11.3 [facility] Comment on above: Performed By: #### 2 4323-8 #### SU SCHNEIDER ([id number]) [facility] ([facility]) [address] [place] [address] 21471 Basic metabolic 2000 panelon 10-15-2024 Anion gap [Moles/Vol] 12 mmol/L 10 - 2 0 mmol/L [facility] Calcium [Mass/Vol] 8.8 mg/dL 8.6 - 10. 3 mg/dL [facility] Chloride [Moles/Vol] 103 mmol/L 98 - 10 7 mmol/L [facility] CO2 [Moles/Vol] 25 mmol/L 21 - 32 mmol/L [facility] Creatinine [Mass/Vol] 1.15 mg/dL 0.50 - 1.30 mg/dL [facility] GFR/1.73 sq M.predicted among non-blacks MDRD (S/P/Bld) [Vol rate/Area] 69 mL/min/{1.73_m2} - PINF [facility] Comment on above: Calculations of jeremie mated GFR are performed using the 2020 CKD-EPI Study Refit equation without the race variable for the IDMS-Traceable creatinine methods. https://jasn.asnjournals.org/content/early/ASN.2020 626485 Glucose [Mass/Vol] 118 mg/dL High 74 - 99 mg/dL [facility] Interpretation and review of laboratory results Abnormal [facility] Potassium [Moles/Vol] 3.7 mmol/L 3.5 - 5.3 mmol/L [facility] Sodium [Moles/Vol] 136 mmol/L 136 - 145 mmol/L [facility] Urea nitrogen [Mass/Vol] 19 mg/dL 6 - 23 mg/dL [facility] Anion gap [Moles/Vol] 12 mmol/L Normal 10-20 [facility] Comment on above: Performed By: #### 2 4323-8 #### SU SCHNEIDER ([id number]) [facility] ([facility]) [address] [place] [address] Calcium [Mass/Vol] 8.8 mg/dL Normal 8.6-10.3 [facility] Comment on above: Performed By: #### 2 4323-8 #### SU SCHNEIDER ([id number]) [facility] ([facility]) [address] [place] [address] Chloride [Moles/Vol] 103 mmol/L Normal 98-107 [facility] Comment on above: Performed By: #### 2 4323-8 #### SU SCHNEIDER ([id number]) [facility] ([facility]) [facility] [place] [address] CO2 [Moles/Vol] 25 mmol/L Normal 21-32 [facility] Comment on above: Performed By: #### 2 4323-8 #### SU SCHNEIDER ([id number]) [facility] ([facility]) [address] [place] [address] 97545 Creatinine [Mass/Vol] 1.15 mg/dL Normal 0.50-1.30 [facility] Comment on above: Performed By: #### 2 4323-8 #### SU SCHNEIDER ([id number]) [facility] ([facility]) [address] [place] [address] 33134 Glomerular filtration rate/1.73 sq M.predicted 69 mL/min/1.73m*2 Normal >60 [facility] Comment on above: Result Comment: Calc ulations of estimated GFR are performed using the 2020 CKD-EPI Study Refit equation without the race variable for the IDMS-Traceable creatinine methods. https://jasn.asnjournals.org/content/early//ASN.2020 925412 Performed By: #### 2 4323-8 #### SU SCHNEIDER ([id number]) [facility] ([facility]) [address] [place] [address] 26351 Glucose [Mass/Vol] 118 mg/dL High 74-99 [facility] Comment on above: Performed By: #### 2 432-8 #### SU SCHNEIDER ([id number]) [facility] ([facility]) [address] [place] [address] 00268 Potassium [Moles/Vol] 3.7 mmol/L Normal 3.5-5.3 [facility] Comment on above: Performed By: #### 2 4323-8 #### SU SCHNEIDER ([id number]) [facility] ([facility]) [address] [place] [address] 30878 Sodium [Moles/Vol] 136 mmol/L Normal 136-145 [facility] Comment on above: Performed By: #### 2 4323-8 #### SU SCHNEIDER ([id number]) [facility] ([facility]) [address] [place] [address] 11917 Urea nitrogen [Mass/Vol] 19 mg/dL Normal 6-23 [facility] Comment on above: Performed By: #### 2 4323-8 #### SU SCHNEIDER ([id number]) [facility] ([facility]) [address] [place] [address] CBC panel Auto (Bld)on 10-15 Erythrocyte distribution width (RBC) [Ratio] 12 % 11.5 - 14.5 % [facility] Hematocrit (Bld) [Volume fraction] 35.7 % Low 41.0 - 52.0 % [facility] Hemoglobin (Bld) [Mass/Vol] 11.9 g/dL Low 13.5 - 17.5 g/dL [facility] Interpretation and review of laboratory results Abnormal [facility] MCH (RBC) [Entitic mass] 32 pg 26.0 - 34.0 pg [facility] MCHC (RBC) [Mass/Vol] 33.3 g/dL 32.0 - 36.0 g/dL [facility] MCV (RBC) [Entitic vol] 96 fL 80 - 100 fL [facility] Nucleated RBC/100 WBC (Bld) [Ratio] 0 % [facility] Platelets (Bld) [#/Vol] 237 10*3/uL [facility] RBC (Bld) [#/Vol] 3.72 10*6/uL Low [facility] WBC (Bld) [#/Vol] 12.9 10*3/uL High [facility] Erythrocyte distribution width (RBC) [Ratio] 12.0 % Normal 11.5-14.5 [facility] Comment on above: Performed By: #### 2 4323-8 #### SU SCHNEIDER ([id number]) [facility] ([facility]) [facility] [place] [address] Hematocrit (Bld) [Volume fraction] 35.7 % Low 41.0-52.0 [facility] Comment on above: Performed By: #### 2 4323-8 #### SU SCHNEIDER ([id number]) [facility] ([facility]) [facility] [place] [address] Hemoglobin (Bld) [Mass/Vol] 11.9 g/dL Low 13.5-17.5 [facility] Comment on above: Performed By: #### 2 432-8 #### SU SCHNEIDER ([id number]) [facility] ([facility]) [address] [place] [address] 64212 MCH (RBC) [Entitic mass] 32.0 pg Normal 26.0-34.0 [facility] Comment on above: Performed By: #### 2 432-8 #### SU SCHNEIDER ([id number]) [facility] ([facility]) [address] [place] [address] 34016 MCHC (RBC) [Mass/Vol] 33.3 g/dL Normal 32.0-36.0 [facility] Comment on above: Performed By: #### 2 432-8 #### SU SCHNEIDER ([id number]) [facility] ([facility]) [address] [place] [address] MCV (RBC) [Entitic vol] 96 fL Normal 80-100 [facility] Comment on above: Performed By: #### 2 4322-8 #### SU SCHNEIDER ([id number]) [facility] ([facility]) [address] [place], [place] [address] Nucleated RBC/100 WBC (Bld) [Ratio] 0.0 /100 WBCs Normal 0.0-0.0 [facility] Comment on above: Performed By: #### 2 432-8 #### SU SCHNEIDER ([id number]) [facility] ([facility]) [address] [place] [address] 20665 Platelets (Bld) [#/Vol] 237 x10*3/uL Normal 150-450 [facility] Comment on above: Performed By: #### 2 432-8 #### SU SCHNEIDER ([id number]) [facility] ([facility]) [address] [place] [address] 56119 RBC (Bld) [#/Vol] 3.72 x10*6/uL Low 4.50-5.90 [facility] Comment on above: Performed By: #### 2 432-8 #### SU SCHNEIDER ([id number]) [facility] ([facility]) [address] [place], [place] [address] WBC (Bld) [#/Vol] 12.9 x10*3/uL High 4.4-11.3 [facility] Comment on above: Performed By: #### 2 4323-8 #### SU SCHNEIDER ([id number]) [facility] ([facility]) [address] [place] [address] Magnesiumon 10-15-2024 Magnesium [Mass/Vol] 1.61 mg/dL 1.60 - 2.40 mg/dL [facility] Magnesium [Mass/Vol] 1.61 mg/dL Normal 1.60-2.40 [facility] Comment on above: Performed By: #### 2 4323-8 #### SU SCHNEIDER ([id number]) [facility] ([facility]) [address] [place] [address] Magnesium [Mass/Vol]on 10-15 Interpretation and review of laboratory results Normal [facility] Bacteria identified Cx Nom ( U)Ordered By: Juan Camarena on 10-14-2024 Interpretation and review of laboratory results Normal [facility] Basic metabolic 2000 panelon 10-14-2024 Anion gap [Moles/Vol] 13 mmol/L 10 - 2 0 mmol/L [facility] Calcium [Mass/Vol] 9.2 mg/dL 8.6 - 10. 3 mg/dL [facility] Chloride [Moles/Vol] 102 mmol/L 98 - 10 7 mmol/L [facility] CO2 [Moles/Vol] 25 mmol/L 21 - 32 mmol/L [facility] Creatinine [Mass/Vol] 1.21 mg/dL 0.50 - 1.30 mg/dL [facility] GFR/1.73 sq M.predicted among non-blacks MDRD (S/P/Bld) [Vol rate/Area] 65 mL/min/{1.73_m2} - PINF [facility] Comment on above: Calculations of jeremie mated GFR are performed using the 2020 CKD-EPI Study Refit equation without the race variable for the IDMS-Traceable creatinine methods. https://jasn.asnjournals.org/content//ASN.2020 860775 Glucose [Mass/Vol] 118 mg/dL High 74 - 99 mg/dL [facility] Interpretation and review of laboratory results Abnormal [facility] Potassium [Moles/Vol] 4.2 mmol/L 3.5 - 5.3 mmol/L [facility] Sodium [Moles/Vol] 136 mmol/L 136 - 145 mmol/L [facility] Urea nitrogen [Mass/Vol] 22 mg/dL 6 - 23 mg/dL [facility] Anion gap [Moles/Vol] 13 mmol/L Normal 10-20 [facility] Comment on above: Performed By: #### 2 4323-8 #### SU SCHNEIDER ([id number]) [facility] ([facility]) [address] [place] [address] 93396 Calcium [Mass/Vol] 9.2 mg/dL Normal 8.6-10.3 [facility] Comment on above: Performed By: #### 2 4323-8 #### SU SCHNEIDER ([id number]) [facility] ([facility]) [address] [place] [address] 38300 Chloride [Moles/Vol] 102 mmol/L Normal 98-107 [facility] Comment on above: Performed By: #### 2 4323-8 #### SU SCHNEIDER ([id number]) [facility] ([facility]) [address] [place] [address] 07169 CO2 [Moles/Vol] 25 mmol/L Normal 21-32 [facility] Comment on above: Performed By: #### 2 4323-8 #### SU SCHNEIDER ([id number]) [facility] ([facility]) [address] [place] [address] 74763 Creatinine [Mass/Vol] 1.21 mg/dL Normal 0.50-1.30 [facility] Comment on above: Performed By: #### 2 4323-8 #### SU SCHNEIDER ([id number]) [facility] ([facility] [address] Glomerular filtration rate/1.73 sq M.predicted 65 mL/min/1.73m*2 Normal >60 [facility] Comment on above: Result Comment: Calc ulations of estimated GFR are performed using the 2020 CKD-EPI Study Refit equation without the race variable for the IDMS-Traceable creatinine methods. https://jasn.asnjournals.org/content/early/ASN.2020 268892 Performed By: #### 2 4323-8 #### SU SCHNEIDER ([id number]) [facility] ([facility]) [address] [place] [address] 16012 Glucose [Mass/Vol] 118 mg/dL High 74-99 [facility] Comment on above: Performed By: #### 2 4323-8 #### SU SCHNEIDER ([id number]) [facility] ([facility]) [address] [place] [address] 17689 Potassium [Moles/Vol] 4.2 mmol/L Normal 3.5-5.3 [facility] Comment on above: Performed By: #### 2 4323-8 #### SU SCHNEIDER ([id number]) [facility] ([facility]) [address] [place] [address] 23513 Sodium [Moles/Vol] 136 mmol/L Normal 136-145 [facility] Comment on above: Performed By: #### 2 4323-8 #### SU SCHNEIDER ([id number]) [facility] ([facility]) [address] [place] [address] 43426 Urea nitrogen [Mass/Vol] 22 mg/dL Normal 6-23 [facility] Comment on above: Performed By: #### 2 4323-8 #### SU SCHNEIDER ([id number]) [facility] ([facility]) [address] [place] [address] 90327 Anion gap [Moles/Vol] 12 mmol/L 10 - 2 0 mmol/L [facility] Calcium [Mass/Vol] 8.4 mg/dL Low 8.6 - 10. 3 mg/dL [facility] Chloride [Moles/Vol] 103 mmol/L 98 - 10 7 mmol/L [facility] CO2 [Moles/Vol] 22 mmol/L 21 - 32 mmol/L [facility] Creatinine [Mass/Vol] 1.29 mg/dL 0.50 - 1.30 mg/dL [facility] Comment on above: Reviewed with previo us results GFR/1.73 sq M.predicted among non-blacks MDRD (S/P/Bld) [Vol rate/Area] 60 mL/min/{1.73_m2} Low - PINF [facility] Comment on above: Calculations of jeremie mated GFR are performed using the 2020 CKD-EPI Study Refit equation without the race variable for the IDMS-Traceable creatinine methods. https://jasn.asnjournals.org/content/early//ASN.2020 407931 Glucose [Mass/Vol] 93 mg/dL 74 - 99 mg/dL [facility] Interpretation and review of laboratory results Abnormal [facility] Potassium [Moles/Vol] 3.3 mmol/L Low 3.5 - 5.3 mmol/L [facility] Sodium [Moles/Vol] 134 mmol/L Low 136 - 145 mmol/L [facility] Urea nitrogen [Mass/Vol] 27 mg/dL High 6 - 23 mg/dL [facility] Anion gap [Moles/Vol] 12 mmol/L Normal 10-20 [facility] Comment on above: Performed By: #### 2 4323-8 #### SU SCHNEIDER ([id number]) [facility] ([facility]) [facility] [place] [address] Calcium [Mass/Vol] 8.4 mg/dL Low 8.6-10.3 [facility] Comment on above: Performed By: #### 2 4323-8 #### SU SCHNEIDER ([id number]) [facility] ([facility]) [address] [place] [address] Chloride [Moles/Vol] 103 mmol/L Normal 98-107 [facility] Comment on above: Performed By: #### 2 4323-8 #### SU SCHNEIDER ([id number]) [facility] ([facility]) [address] [place] [address] 31737 CO2 [Moles/Vol] 22 mmol/L Normal 21-32 [facility] Comment on above: Performed By: #### 2 4323-8 #### SU SCHNEIDER ([id number]) [facility] ([facility]) [address] [place] [address] 17652 Creatinine [Mass/Vol] 1.29 mg/dL Normal 0.50-1.30 [facility] Comment on above: Result Comment: Revi ewed with previous results Performed By: #### 2 4323-8 #### SU SCHNEIDER ([id number]) [facility] ([facility]) [address] [place] [address] 07848 Glomerular filtration rate/1.73 sq M.predicted 60 mL/min/1.73m*2 Low >60 [facility] Comment on above: Result Comment: Calc ulations of estimated GFR are performed using the 2020 CKD-EPI Study Refit equation without the race variable for the IDMS-Traceable creatinine methods. https://jasn.asnjournals.org/content/early//ASN.2020 178079 Performed By: #### 2 4323-8 #### SU SCHNEIDER ([id number]) [facility] ([facility]) [address] [place] [address] 77209 Glucose [Mass/Vol] 93 mg/dL Normal 74-99 [facility] Comment on above: Performed By: #### 2 4323-8 #### SU SCHNEIDER ([id number]) [facility] ([facility]) [address] [place] [address] 43274 Potassium [Moles/Vol] 3.3 mmol/L Low 3.5-5.3 [facility] Comment on above: Performed By: #### 2 4323-8 #### SU SCHNEIDER ([id number]) [facility] ([facility]) [address] [place] [address] 71175 Sodium [Moles/Vol] 134 mmol/L Low 136-145 [facility] Comment on above: Performed By: #### 2 4323-8 #### SU SCHNEIDER ([id number]) [facility] ([facility]) [facility] [place] [address] Urea nitrogen [Mass/Vol] 27 mg/dL High 6-23 [facility] Comment on above: Performed By: #### 2 4323-8 #### SU SCHNEIDER ([id number]) [facility] ([facility]) [facility] [place] [phone] CBC panel Auto (Bld)on 10-14 Erythrocyte distribution width (RBC) [Ratio] 11.9 % 11.5 - 14.5 % [facility] Hematocrit (Bld) [Volume fraction] 36 % Low 41.0 - 52.0 % [facility] Hemoglobin (Bld) [Mass/Vol] 12.3 g/dL Low 13.5 - 17.5 g/dL [facility] Interpretation and review of laboratory results Abnormal [facility] MCH (RBC) [Entitic mass] 32.7 pg 26.0 - 34.0 pg [facility] MCHC (RBC) [Mass/Vol] 34.2 g/dL 32.0 - 36.0 g/dL [facility] MCV (RBC) [Entitic vol] 96 fL 80 - 100 fL [facility] Nucleated RBC/100 WBC (Bld) [Ratio] 0 % [facility] Platelets (Bld) [#/Vol] 236 10*3/uL [facility] RBC (Bld) [#/Vol] 3.76 10*6/uL Low [facility] WBC (Bld) [#/Vol] 17.3 10*3/uL [facility] Erythrocyte distribution width (RBC) [Ratio] 11.9 % Normal 11.5-14.5 [facility] Comment on above: Performed By: #### 2 4323-8 #### SU SCHNEIDER ([id number]) [facility] ([facility]) [address] [place] [address] Hematocrit (Bld) [Volume fraction] 36.0 % Low 41.0-52.0 [facility] Comment on above: Performed By: #### 2 4322-8 #### SU SCHNEIDER ([id number]) [facility] ([facility]) [address] [place] [id number] Hemoglobin (Bld) [Mass/Vol] 12.3 g/dL Low 13.5-17.5 [facility] Comment on above: Performed By: #### 2 4322-8 #### SU SCHNEIDER ([id number]) [facility] ([facility]) [address] [place] [address] 04577 MCH (RBC) [Entitic mass] 32.7 pg Normal 26.0-34.0 [facility] Comment on above: Performed By: #### 2 4322-8 #### SU SCHNEIDER ([id number]) [facility] ([facility]) [address] [place] [address] 64879 MCHC (RBC) [Mass/Vol] 34.2 g/dL Normal 32.0-36.0 [facility] Comment on above: Performed By: #### 2 4322-8 #### SU SCHNEIDER ([id number]) [facility] ([facility]) [address] [place] [address] 54053 MCV (RBC) [Entitic vol] 96 fL Normal 80-100 [facility] Comment on above: Performed By: #### 2 4322-8 #### SU SCHNEIDER ([id number]) [facility] ([facility]) [address] [place] [address] 06607 Nucleated RBC/100 WBC (Bld) [Ratio] 0.0 /100 WBCs Normal 0.0-0.0 [facility] Comment on above: Performed By: #### 2 4322-8 #### SU SCHNEIDER ([id number]) [facility] ([facility]) [address] [place] [address] 56689 Platelets (Bld) [#/Vol] 236 x10*3/uL Normal 150-450 [facility] Comment on above: Performed By: #### 2 4323-8 #### SU SCHNEIDER ([id number]) [facility] ([facility]) [address] [place] [address] RBC (Bld) [#/Vol] 3.76 x10*6/uL Low 4.50-5.90 [facility] Comment on above: Performed By: #### 2 4323-8 #### SU SCHNEIDER ([id number]) [facility] ([facility]) [address] [place] [address] WBC (Bld) [#/Vol] 17.3 x10*3/uL High 4.4-11.3 [facility] Comment on above: Performed By: #### 2 4323-8 #### SU SCHNEIDER ([id number]) [facility] ([facility]) [facility] [place] [address] Erythrocyte distribution width (RBC) [Ratio] 11.9 % 11.5 - 14.5 % [facility] Hematocrit (Bld) [Volume fraction] 31 % Low 41.0 - 52.0 % [facility] Hemoglobin (Bld) [Mass/Vol] 10.7 g/dL Low 13.5 - 17.5 g/dL [facility] Interpretation and review of laboratory results Abnormal [facility] MCH (RBC) [Entitic mass] 32.7 pg 26.0 - 34.0 pg [facility] MCHC (RBC) [Mass/Vol] 34.5 g/dL 32.0 - 36.0 g/dL [facility] MCV (RBC) [Entitic vol] 95 fL 80 - 100 fL [facility] Nucleated RBC/100 WBC (Bld) [Ratio] 0 % [facility] Platelets (Bld) [#/Vol] 197 10*3/uL [facility] RBC (Bld) [#/Vol] 3.27 10*6/uL Low [facility] WBC (Bld) [#/Vol] 17.3 10*3/uL High [facility] Erythrocyte distribution width (RBC) [Ratio] 11.9 % Normal 11.5-14.5 [facility] Comment on above: Performed By: #### 2 524-7 #### SU SCHNEIDER ([id number]) [facility] ([facility]) [address] [place] [address] 82515 Hematocrit (Bld) [Volume fraction] 31.0 % Low 41.0-52.0 [facility] Comment on above: Performed By: #### 2 524-7 #### SU SCHNEIDER ([id number]) [facility] ([facility]) [address] [place] [address] 27976 Hemoglobin (Bld) [Mass/Vol] 10.7 g/dL Low 13.5-17.5 [facility] Comment on above: Performed By: #### 2 524-7 #### SU SCHNEIDER ([id number]) [facility] ([facility]) [address] [place] [address] 38531 MCH (RBC) [Entitic mass] 32.7 pg Normal 26.0-34.0 [facility] Comment on above: Performed By: #### 2 524-7 #### SU SCHNEIDER ([id number]) [facility] ([facility]) [address] [place] [address] 31810 MCHC (RBC) [Mass/Vol] 34.5 g/dL Normal 32.0-36.0 [facility] Comment on above: Performed By: #### 2 524-7 #### SU SCHNEIDER ([id number]) [facility] ([facility]) [address] [place] [address] 21166 MCV (RBC) [Entitic vol] 95 fL Normal 80-100 [facility] Comment on above: Performed By: #### 2 524-7 #### SU SCHNEIDER ([id number]) [facility] ([facility]) [address] [place] [address] 73989 Nucleated RBC/100 WBC (Bld) [Ratio] 0.0 /100 WBCs Normal 0.0-0.0 [facility] Comment on above: Performed By: #### 2 524-7 #### SU SCHNEIDER ([id number]) [facility] ([facility]) [address] [place] [address] Platelets (Bld) [#/Vol] 197 x10*3/uL Normal 150-450 [facility] Comment on above: Performed By: #### 2 524-7 #### SU SCHNEIDER ([id number]) [facility] ([facility]) [facility] [place] [address] RBC (Bld) [#/Vol] 3.27 x10*6/uL Low 4.50-5.90 [facility] Comment on above: Performed By: #### 2 524-7 #### SU SCHNEIDER ([id number]) [facility] ([facility]) [address] [place] [address] 23751 WBC (Bld) [#/Vol] 17.3 x10*3/uL High 4.4-11.3 [facility] Comment on above: Performed By: #### 2 524-7 #### SU SCHNEIDER ([id number]) [facility] ([facility]) [facility] [place] [address] Magnesiumon 10-14-2024 Magnesium [Mass/Vol] 1.42 mg/dL Low 1.60 - 2.40 mg/dL [facility] Magnesium [Mass/Vol] 1.42 mg/dL Low 1.60-2.40 [facility] Comment on above: Performed By: #### 2 4323-8 #### SU SCHNEIDER ([id number]) [facility] ([facility]) [address] [place] [address] 84035 Magnesium [Mass/Vol]on 10-14 Interpretation and review of laboratory results Abnormal [facility] Urine CultureOrdered By: Nahun Camarena on 10-14-2024 Bacteria identified Cx Nom (U) No growth [facility] Basic metabolic 2000 panelon 10-13-2024 Anion gap [Moles/Vol] 13 mmol/L 10 - 2 0 mmol/L [facility] Calcium [Mass/Vol] 8.1 mg/dL Low 8.6 - 10. 3 mg/dL [facility] Chloride [Moles/Vol] 102 mmol/L 98 - 10 7 mmol/L [facility] CO2 [Moles/Vol] 24 mmol/L 21 - 32 mmol/L [facility] Creatinine [Mass/Vol] 2.39 mg/dL High 0.50 - 1.30 mg/dL [facility] Comment on above: Reviewed with previo us results GFR/1.73 sq M.predicted among non-blacks MDRD (S/P/Bld) [Vol rate/Area] 29 mL/min/{1.73_m2} Low - PINF [facility] Comment on above: Calculations of jeremie mated GFR are performed using the 2020 CKD-EPI Study Refit equation without the race variable for the IDMS-Traceable creatinine methods. https://jasn.asnjournals.org/content/early/ASN.2020 880305 Glucose [Mass/Vol] 117 mg/dL High 74 - 99 mg/dL [facility] Interpretation and review of laboratory results Abnormal [facility] Potassium [Moles/Vol] 3.5 mmol/L 3.5 - 5.3 mmol/L [facility] Sodium [Moles/Vol] 135 mmol/L Low 136 - 145 mmol/L [facility] Urea nitrogen [Mass/Vol] 37 mg/dL High 6 - 23 mg/dL [facility] Anion gap [Moles/Vol] 13 mmol/L Normal 10-20 [facility] Comment on above: Performed By: #### 2 524-7 #### SU SCHNEIDER ([id number]) [facility] ([facility]) [facility] [place] [address] Calcium [Mass/Vol] 8.1 mg/dL Low 8.6-10.3 [facility] Comment on above: Performed By: #### 2 524-7 #### SU SCHNEIDER ([id number]) [facility] ([facility]) [facility] [place] [address] Chloride [Moles/Vol] 102 mmol/L Normal 98-107 [facility] Comment on above: Performed By: #### 2 524-7 #### SU SCHNEIDER ([id number]) [facility] ([facility]) [address] [place] [address] 42837 CO2 [Moles/Vol] 24 mmol/L Normal 21-32 [facility] Comment on above: Performed By: #### 2 524-7 #### SU SCHNEIDER ([id number]) [facility] ([facility]) [address] [place] [address] 20328 Creatinine [Mass/Vol] 2.39 mg/dL High 0.50-1.30 [facility] Comment on above: Result Comment: Revi ewed with previous results Performed By: #### 2 524-7 #### SU SCHNEIDER ([id number]) [facility] ([facility]) [address] [place] [address] 58994 Glomerular filtration rate/1.73 sq M.predicted 29 mL/min/1.73m*2 Low >60 [facility] Comment on above: Result Comment: Calc ulations of estimated GFR are performed using the 2020 CKD-EPI Study Refit equation without the race variable for the IDMS-Traceable creatinine methods. https://jasn.asnjournals.org/content/early/ASN.2020 553164 Performed By: #### 2 524-7 #### SU SCHNEIDER ([id number]) [facility] ([facility]) [address] [place] [address] 94085 Glucose [Mass/Vol] 117 mg/dL High 74-99 [facility] Comment on above: Performed By: #### 2 524-7 #### SU SCHNEIDER ([id number]) [facility] ([facility]) [address] [place] [address] 76288 Potassium [Moles/Vol] 3.5 mmol/L Normal 3.5-5.3 [facility] Comment on above: Performed By: #### 2 524-7 #### SU SCHNEIDER ([id number]) [facility] ([facility]) [address] [place] [address] 81259 Sodium [Moles/Vol] 135 mmol/L Low 136-145 [facility] Comment on above: Performed By: #### 2 524-7 #### SU SCHNEIDER ([id number]) [facility] ([facility]) [address] [place] [phone] Urea nitrogen [Mass/Vol] 37 mg/dL High 6-23 [facility] Comment on above: Performed By: #### 2 524-7 #### SU SCHNEIDER ([id number]) [facility] ([facility]) [address] [place] [address] CBC panel Auto (Bld)on 10-13 Erythrocyte distribution width (RBC) [Ratio] 12 % 11.5 - 14.5 % [facility] Hematocrit (Bld) [Volume fraction] 34.5 % Low 41.0 - 52.0 % [facility] Hemoglobin (Bld) [Mass/Vol] 11.5 g/dL Low 13.5 - 17.5 g/dL [facility] Interpretation and review of laboratory results Abnormal [facility] MCH (RBC) [Entitic mass] 32.7 pg 26.0 - 34.0 pg [facility] MCHC (RBC) [Mass/Vol] 33.3 g/dL 32.0 - 36.0 g/dL [facility] MCV (RBC) [Entitic vol] 98 fL 80 - 100 fL [facility] Nucleated RBC/100 WBC (Bld) [Ratio] 0 % [facility] Platelets (Bld) [#/Vol] 182 10*3/uL [facility] RBC (Bld) [#/Vol] 3.52 10*6/uL Low [facility] WBC (Bld) [#/Vol] 16.7 10*3/uL High [facility] Erythrocyte distribution width (RBC) [Ratio] 12.0 % Normal 11.5-14.5 [facility] Comment on above: Performed By: #### 2 524-7 #### SU SCHNEIDER ([id number]) [facility] ([facility]) [address] [place] [address] 31243 Hematocrit (Bld) [Volume fraction] 34.5 % Low 41.0-52.0 [facility] Comment on above: Performed By: #### 2 524-7 #### SU SCHNEIDER ([id number]) [facility] ([facility]) [address] [place] [address] 00785 Hemoglobin (Bld) [Mass/Vol] 11.5 g/dL Low 13.5-17.5 [facility] Comment on above: Performed By: #### 2 524-7 #### SU SCHNEIDER ([id number]) [facility] ([facility]) [address] [place] [address] 23454 MCH (RBC) [Entitic mass] 32.7 pg Normal 26.0-34.0 [facility] Comment on above: Performed By: #### 2 524-7 #### SU SCHNEIDER ([id number]) [facility] ([facility]) [address] [place] [address] 14642 MCHC (RBC) [Mass/Vol] 33.3 g/dL Normal 32.0-36.0 [facility] Comment on above: Performed By: #### 2 524-7 #### SU SCHNEIDER ([id number]) [facility] ([facility]) [address] [place] [address] 34990 MCV (RBC) [Entitic vol] 98 fL Normal 80-100 [facility] Comment on above: Performed By: #### 2 524-7 #### SU SCHNEIDER ([id number]) [facility] ([facility]) [address] [place] [address] 31978 Nucleated RBC/100 WBC (Bld) [Ratio] 0.0 /100 WBCs Normal 0.0-0.0 [facility] Comment on above: Performed By: #### 2 524-7 #### SU SCHNEIDER ([id number]) [facility] ([facility]) [address] [place] [address] 71910 Platelets (Bld) [#/Vol] 182 x10*3/uL Normal 150-450 [facility] Comment on above: Performed By: #### 2 524-7 #### SU SCHNEIDER ([id number]) [facility] ([facility]) [address] [place] [address] 03224 RBC (Bld) [#/Vol] 3.52 x10*6/uL Low 4.50-5.90 [facility] Comment on above: Performed By: #### 2 524-7 #### SU SCHNEIDER ([id number]) [facility] ([facility]) [address] [place] [address] 32911 WBC (Bld) [#/Vol] 16.7 x10*3/uL High 4.4-11.3 [facility] Comment on above: Performed By: #### 2 524-7 #### SU SCHNEIDER ([id number]) [facility] ([facility]) [address] [place] [address] 09144 Extra Urine Gutiérrez Tubeon 09-30 Extra Tube Hold for add-ons. [facility] Comment on above: Auto resulted. [facility] Gastrointestinal pathogens i dentified CLEMENTE+probe Nom (Stl)Ordered By: Oralia Swanson on 10-13-2024 Campylobacter Group Not detected Not Detected [facility] E. coli stx1 gene CLEMENTE+probe Ql (Stl) Not detected Not Detected [facility] E. coli stx2 gene CLEMENTE+probe Ql (Stl) Not detected Not Detected [facility] Interpretation and review of laboratory results Normal [facility] Norovirus genogroup I and II RNA CLEMENTE+probe Nom (Stl) Not detected Not Detected [facility] Rotavirus RNA CLEMENTE+probe Nom (Stl) Not detected Not Detected [facility] Salmonella species Not detected Not Detected [facility] Shigella sp DNA CLEMENTE+probe Ql (Unsp spec) Not detected Not Detected [facility] Vibrio Group Not detected Not Detected [facility] Y. enterocolitica DNA CLEMENTE+probe Ql (Stl) Not detected Not Detected [facility] Sodium (U) [Moles/Vol]on Creatinine (U) [Mass/Vol] 229.3 mg/dL 20.0 - 370.0 mg/dL [facility] Sodium/Creatinine (U) [Ratio] 15 Not established . mmol/g Creat [facility] Sodium, Urine Randomon 10-13 Sodium (U) [Moles/Vol] 34 mmol/L [facility] W Reflex Culture panel (U)on 10-13-2024 Appearance (U) Clear Clear [facility] Bilirubin (U) [Mass/Vol] Negative NEGATIVE [facility] Color (U) Yellow Light-Yello w, Yellow, Dark-Yellow [facility] Glucose Auto test strip (U) [Mass/Vol] Normal Normal mg/dL [facility] Interpretation and review of laboratory results Abnormal [facility] Interpretation and review of laboratory results Normal [facility] Ketones (U) [Mass/Vol] TRACE Abnormal NEGAT DWIGHT mg/dL [facility] Leukocyte esterase Auto test strip Ql (U) Negative NEGATIVE [facility] Nitrite Auto test strip Ql (U) Negative NEGATIVE [facility] pH (U) 6 [pH] 5.0, 5.5, 6.0, 6.5, 7.0, 7.5, 8.0 [facility] Protein (U) [Mass/Vol] 100 (2+) Abnormal NEGAT DWIGHT, 10 (TRACE), 20 (TRACE) mg/dL [facility] RBC (U) [#/Vol] 0.2 (2+) Abnormal NEGATIVE [facility] RBC Auto (Urine sed) [#/Area] 1-2 NONE, 1-2, 3-5 /HPF [facility] Specific gravity (U) [Rel density] 1.023 1.005 - 1.035 [facility] Urobilinogen (U) [Mass/Vol] Normal Normal mg/dL [facility] WBC Auto (Urine sed) [#/Area] NONE 1-5, NONE /HPF [facility] Appearance (U) Clear Normal Clear [facility] Comment on above: Performed By: #### 2 524-7 #### SU SCHNEIDER ([id number]) [facility] ([facility]) [address] [place] [address] 75566 Bilirubin (U) [Mass/Vol] Negative Normal NEGATIVE [facility] Comment on above: Performed By: #### 2 524-7 #### SU SCHNEIDER ([id number]) [facility] ([facility]) [address] [place] [address] 78456 Color (U) Yellow Normal Light-Yello w, Yellow, Dark-Yellow [facility] Comment on above: Performed By: #### 2 524-7 #### SU SCHNEIDER ([id number]) [facility] ([facility]) [address] [place] [address] 26745 Glucose Auto test strip (U) [Mass/Vol] Normal Normal Normal [facility] Comment on above: Performed By: #### 2 524-7 #### SU SCHNEIDER ([id number]) [facility] ([facility]) [address] [place] [address] 64950 Ketones (U) [Mass/Vol] TRACE Abnormal NEGATIVE [facility] Comment on above: Performed By: #### 2 524-7 #### SU SCHNEIDER ([id number]) [facility] ([facility]) [address] [place] [address] 20729 Leukocyte esterase Auto test strip Ql (U) Negative Normal NEGATIVE [facility] Comment on above: Performed By: #### 2 524-7 #### SU SCHNEIDER ([id number]) [facility] ([facility]) [address] [place] [address] 76076 Nitrite Auto test strip Ql (U) Negative Normal NEGATIVE [facility] Comment on above: Performed By: #### 2 524-7 #### SU SCHNEIDER ([id number]) [facility] ([facility]) [address] [place] [address] 25824 pH (U) 6.0 [pH] Normal 5.0, 5.5, 6.0, 6.5, 7.0, 7.5, 8.0 [facility] Comment on above: Performed By: #### 2 524-7 #### SU SCHNEIDER ([id number]) [facility] ([facility]) [address] [place] [address] 09571 Protein (U) [Mass/Vol] 100 (2+) Abnormal NEGAT DWIGHT, 10 (TRACE), 20 (TRACE) [facility] Comment on above: Performed By: #### 2 524-7 #### SU SCHNEIDER ([id number]) [facility] ([facility]) [address] [place] [address] 42040 RBC (U) [#/Vol] 0.2 (2+) Abnormal NEGATIVE [facility] Comment on above: Performed By: #### 2 524-7 #### SU SCHNEIDER ([id number]) [facility] ([facility]) [address] [place] [address] 03548 RBC Auto (Urine sed) [#/Area] 1-2 Normal NONE, 1-2, 3-5 [facility] Comment on above: Performed By: #### 2 524-7 #### SU SCHNEIDER ([id number]) [facility] ([facility]) [address] [place] [address] 82356 Specific gravity (U) [Rel density] 1.023 Normal 1.005-1.035 [facility] Comment on above: Performed By: #### 2 524-7 #### SU SCHNEIDER ([id number]) [facility] ([facility]) [address] [place] [address] 43640 Urobilinogen (U) [Mass/Vol] Normal Normal Normal [facility] Comment on above: Performed By: #### 2 524-7 #### SU SCHNEIDER ([id number]) [facility] ([facility]) [address] [place] [address] 98962 WBC Auto (Urine sed) [#/Area] NONE Normal 1-5, NONE [facility] Comment on above: Performed By: #### 2 524-7 #### SU SCHNEIDER ([id number]) [facility] ([facility]) [address] [place] [address] 46902 Bacteria identifiedon 2023 Bacteria identified Cx Nom (U) Test: Urine Culture Specimen Source: Clean Catch/Voided Specimen Type: Urine Specimen Date: 10/12/2024 1633 Result Date: 10/14/2024 0838 Result Status: Final result Abnormal: No Resulting Lab: [facility] [id number] [facility] [address] CULTURE No growth Normal [facility] Comment on above: Performed By: #### 2 4323-8 #### BLUE WYATT ([id number]) [facility] ([facility]) [address] [place] [address] Basic metabolic 2000 panelon 10-12-2024 Anion gap [Moles/Vol] 15 mmol/L 10 - 2 0 mmol/L [facility] Calcium [Mass/Vol] 8.5 mg/dL Low 8.6 - 10. 3 mg/dL [facility] Chloride [Moles/Vol] 101 mmol/L 98 - 10 7 mmol/L [facility] CO2 [Moles/Vol] 26 mmol/L 21 - 32 mmol/L [facility] Creatinine [Mass/Vol] 2.94 mg/dL High 0.50 - 1.30 mg/dL [facility] Comment on above: Confirmed by repeat analysis GFR/1.73 sq M.predicted among non-blacks MDRD (S/P/Bld) [Vol rate/Area] 22 mL/min/{1.73_m2} Low - PINF [facility] Comment on above: Calculations of jeremie mated GFR are performed using the 2020 CKD-EPI Study Refit equation without the race variable for the IDMS-Traceable creatinine methods. https://jasn.asnjournals.org/content/early/ASN.2020 692584 Glucose [Mass/Vol] 108 mg/dL High 74 - 99 mg/dL [facility] Interpretation and review of laboratory results Abnormal [facility] Potassium [Moles/Vol] 4.1 mmol/L 3.5 - 5.3 mmol/L [facility] Sodium [Moles/Vol] 138 mmol/L 136 - 145 mmol/L [facility] Urea nitrogen [Mass/Vol] 32 mg/dL High 6 - 23 mg/dL [facility] Anion gap [Moles/Vol] 15 mmol/L Normal 10-20 [facility] Comment on above: Performed By: #### 2 4321-2 #### SU SCHNEIDER ([id number]) [facility] ([facility]) [address] [place] [address] Calcium [Mass/Vol] 8.5 mg/dL Low 8.6-10.3 [facility] Comment on above: Performed By: #### 2 4321-2 #### SU SCHNEIDER ([id number]) [facility] ([facility]) [address] [place] [address] Chloride [Moles/Vol] 101 mmol/L Normal 98-107 [facility] Comment on above: Performed By: #### 2 4321-2 #### SU SCHNEIDER ([id number]) [facility] ([facility]) [address] [place] [address] CO2 [Moles/Vol] 26 mmol/L Normal 21-32 [facility] Comment on above: Performed By: #### 2 4321-2 #### SU SCHNEIDER ([id number]) [facility] ([facility]) [address] [place] [address] Creatinine [Mass/Vol] 2.94 mg/dL High 0.50-1.30 [facility] Comment on above: Result Comment: Conf irmed by repeat analysis Performed By: #### 2 4321-2 #### SU SCHNEIDER ([id number]) [facility] ([facility]) [address] [place] [address] Glomerular filtration rate/1.73 sq M.predicted 22 mL/min/1.73m*2 Low >60 [facility] Comment on above: Result Comment: Calc ulations of estimated GFR are performed using the 2020 CKD-EPI Study Refit equation without the race variable for the IDMS-Traceable creatinine methods. https://jasn.asnjournals.org/content// 910075 Performed By: #### 2 4321-2 #### SU SCHNEIDER ([id number]) [facility] ([facility]) [address] [place] [address] 29915 Glucose [Mass/Vol] 108 mg/dL High 74-99 [facility] Comment on above: Performed By: #### 2 4321-2 #### SU SCHNEIDER ([id number]) [facility] ([facility]) [address] [place] [address] 44849 Potassium [Moles/Vol] 4.1 mmol/L Normal 3.5-5.3 [facility] Comment on above: Performed By: #### 2 4321-2 #### SU SCHNEIDER ([id number]) [facility] ([facility]) [address] [place] [address] 85304 Sodium [Moles/Vol] 138 mmol/L Normal 136-145 [facility] Comment on above: Performed By: #### 2 4321-2 #### SU SCHNEIDER ([id number]) [facility] ([facility]) [address] [place] [address] 27630 Urea nitrogen [Mass/Vol] 32 mg/dL High 6-23 [facility] Comment on above: Performed By: #### 2 4321-2 #### SU SCHNEIDER ([id number]) [facility] ([facility]) [address] [place] [address] 59660 C. difficile toxin A+B tcdA+ tcdB genes CLEMENTE+probe Ql (Stl)on 10-12-2024 Interpretation and review of laboratory results Normal [facility] This test is an FDA-cleared real-time PCR assay for detection of toxigenic C. difficile DNA from unprocessed liquid or unformed stool specimens that have not undergone nucleic acid extraction in symptomatic patients with potential C. difficile infection (CDI). A positive result may indicate colonization, and clinical assessment is required for the diagnosis of CDI. This test cannot be performed on formed stools or used as a test of cure, and should not be performed more than once per 7 days. [facility] C. difficile, PCRon 10-12-20 C. difficile toxin A+B tcdA+tcdB genes CLEMENTE+probe Ql (Stl) Not detected Not Detected [facility] CBC panel Auto (Bld)on 10-12 Erythrocyte distribution width (RBC) [Ratio] 12.1 % 11.5 - 14.5 % [facility] Hematocrit (Bld) [Volume fraction] 38.3 % Low 41.0 - 52.0 % [facility] Hemoglobin (Bld) [Mass/Vol] 12.7 g/dL Low 13.5 - 17.5 g/dL [facility] Interpretation and review of laboratory results Abnormal [facility] MCH (RBC) [Entitic mass] 32.5 pg 26.0 - 34.0 pg [facility] MCHC (RBC) [Mass/Vol] 33.2 g/dL 32.0 - 36.0 g/dL [facility] MCV (RBC) [Entitic vol] 98 fL 80 - 100 fL [facility] Nucleated RBC/100 WBC (Bld) [Ratio] 0 % [facility] Platelets (Bld) [#/Vol] 205 10*3/uL [facility] RBC (Bld) [#/Vol] 3.91 10*6/uL Low [facility] WBC (Bld) [#/Vol] 19.6 10*3/uL High [facility] Erythrocyte distribution width (RBC) [Ratio] 12.1 % Normal 11.5-14.5 [facility] Comment on above: Performed By: #### 5 8410-2 #### SU SCHNEIDER ([id number]) [facility] ([facility]) [address] [place] [address] 50194 Hematocrit (Bld) [Volume fraction] 38.3 % Low 41.0-52.0 [facility] Comment on above: Performed By: #### 5 8410-2 #### SU SCHNEIDER ([id number]) [facility] ([facility]) [address] [place] [address] 73665 Hemoglobin (Bld) [Mass/Vol] 12.7 g/dL Low 13.5-17.5 [facility] Comment on above: Performed By: #### 5 8410-2 #### SU SCHNEIDER ([id number]) [facility] ([facility]) [address] [place] [address] 03855 MCH (RBC) [Entitic mass] 32.5 pg Normal 26.0-34.0 [facility] Comment on above: Performed By: #### 5 8410-2 #### SU SCHNEIDER ([id number]) [facility] ([facility]) [address] [place] [address] 67203 MCHC (RBC) [Mass/Vol] 33.2 g/dL Normal 32.0-36.0 [facility] Comment on above: Performed By: #### 5 8410-2 #### SU SCHNEIDER ([id number]) [facility] ([facility]) [address] [place] [address] 79694 MCV (RBC) [Entitic vol] 98 fL Normal 80-100 [facility] Comment on above: Performed By: #### 5 8410-2 #### SU SCHNEIDER ([id number]) [facility] ([facility]) [address] [place] [address] 80595 Nucleated RBC/100 WBC (Bld) [Ratio] 0.0 /100 WBCs Normal 0.0-0.0 [facility] Comment on above: Performed By: #### 5 8410-2 #### SU SCHNEIDER ([id number]) [facility] ([facility]) [address] [place] [address] 70031 Platelets (Bld) [#/Vol] 205 x10*3/uL Normal 150-450 [facility] Comment on above: Performed By: #### 5 8410-2 #### SU SCHNEIDER ([id number]) [facility] ([facility]) [address] [place] [address] 76952 RBC (Bld) [#/Vol] 3.91 x10*6/uL Low 4.50-5.90 [facility] Comment on above: Performed By: #### 5 8410-2 #### SU SCHNEIDER ([id number]) [facility] ([facility]) [address] [place] [address] WBC (Bld) [#/Vol] 19.6 x10*3/uL High 4.4-11.3 [facility] Comment on above: Performed By: #### 5 8410-2 #### SU BAKERHAI ([id number]) [facility] ([facility]) [phone] ABDOMEN WO IV CONTRASTon 10-12-2024 CT ABDOMEN WO IV CONTRAST Interpreted By: Broderick Meeks, STUDY: CT ABDOMEN WO IV CONTRAST; 10/12/2024 2:43 pm INDICATION: Signs/Symptoms:absces s. COMPARISON: CT dated 10/11/2024 ACCESSION NUMBER(S): [id number] ORDERING CLINICIAN: HONEY SHI TECHNIQUE: Contiguous axial images were obtained at 3mm slice thickness through the lower abdomen and pelvis without intravenous contrast administration. Coronal and sagittal reconstructions at 3 mm slice thickness were performed. FINDINGS: The study is somewhat limited by the lack of intravenous contrast. Visualized portions of the liver LIVER: The liver is within normal limits for appearance, without evidence of focal masses. BILE DUCTS: No definite intra or extrahepatic biliary dilatation is identified. GALLBLADDER: The gallbladder is nondilated. No definite calcified gallstones are seen. PANCREAS: The pancreas is within normal limits for appearance, without evidence of focal masses. SPLEEN: The visualized portion of the spleen is within normal limits for size. No focal splenic mass is seen. ADRENAL GLANDS: A nodule is seen in the right adrenal gland, measuring at up to 2.3 x 1.5 cm in diameter. This measures at less than 10 Hounsfield units in density and is consistent with a lipid rich adenoma. KIDNEYS AND URETERS: There is no hydronephrosis, hydroureter or renal/ ureteral calculus identified bilaterally. Multiple rounded hypodensities are seen from the kidneys bilaterally. These are incompletely evaluated without contrast, but are unchanged from the prior study, and are consistent with cysts. BOWEL: Scattered diverticuli are seen throughout the sigmoid colon. The visualized portions of the colon and small bowel are otherwise within normal limits for course, caliber and appearance, without evidence of wall thickening or obstruction. The appendix is again seen to be dilated, measuring at up to 1.6 cm in diameter, and demonstrates significant periappendiceal inflammatory stranding. This is slightly decreased in size when compared to the prior study, on which it measured at up to 1.8 cm in diameter. VESSELS: Scattered atherosclerotic calcifications are seen throughout the infrarenal abdominal aorta and iliac arteries. The abdominal aorta is within normal limits for course, caliber and appearance, without evidence of aneurysm. PERITONEUM/RETROPERIT ONEUM/LYMPH NODES: There are several tiny bubbles of extraluminal air identified anteriorly within the upper abdomen and within the right lower quadrant mesentery, and may be secondary to micro perforation. A small amount of free fluid is seen within the pelvis, new relative to the prior study. No gross mesenteric or retroperitoneal lymphadenopathy is identified. BONE AND SOFT TISSUE: There is no evidence of acute fracture identified. No evidence of abdominal wall mass or hernia is identified. IMPRESSION: 1. Dilated appendix with significant periappendiceal inflammatory stranding, slightly decreased in size when compared to the prior study. 2. Scattered tiny bubbles of extraperitoneal air within the abdomen, may represent micro perforation. 3. Small amount of free fluid within the pelvis, new relative to the prior study. 4. No evidence of bowel obstruction. Signed by: Broderikc Meeks 10/12/2024 3:26 PM Dictation workstation: [id number] [facility] CT Abdomen WO contraston 1. Dilated appendix with significant periappendiceal inflammatory stranding, slightly decreased in size when compared to the prior study. 2. Scattered tiny bubbles of extraperitoneal air within the abdomen, may represent micro perforation. 3. Small amount of free fluid within the pelvis, new relative to the prior study. 4. No evidence of bowel obstruction. Signed by: Broderick Meeks 10/12/2024 3:26 PM Dictation workstation: [id number] [facility] MMODAL Interpreted By: Broderick Meeks, STUDY: CT ABDOMEN WO IV CONTRAST; 10/12/2024 2:43 pm INDICATION: Signs/Symptoms:absces s. COMPARISON: CT dated 10/11/2024 ACCESSION NUMBER(S): [id number] ORDERING CLINICIAN: HONEY SHI TECHNIQUE: Contiguous axial images were obtained at 3mm slice thickness through the lower abdomen and pelvis without intravenous contrast administration. Coronal and sagittal reconstructions at 3 mm slice thickness were performed. FINDINGS: The study is somewhat limited by the lack of intravenous contrast. Visualized portions of the liver LIVER: The liver is within normal limits for appearance, without evidence of focal masses. BILE DUCTS: No definite intra or extrahepatic biliary dilatation is identified. GALLBLADDER: The gallbladder is nondilated. No definite calcified gallstones are seen. PANCREAS: The pancreas is within normal limits for appearance, without evidence of focal masses. SPLEEN: The visualized portion of the spleen is within normal limits for size. No focal splenic mass is seen. ADRENAL GLANDS: A nodule is seen in the right adrenal gland, measuring at up to 2.3 x 1.5 cm in diameter. This measures at less than 10 Hounsfield units in density and is consistent with a lipid rich adenoma. KIDNEYS AND URETERS: There is no hydronephrosis, hydroureter or renal/ ureteral calculus identified bilaterally. Multiple rounded hypodensities are seen from the kidneys bilaterally. These are incompletely evaluated without contrast, but are unchanged from the prior study, and are consistent with cysts. BOWEL: Scattered diverticuli are seen throughout the sigmoid colon. The visualized portions of the colon and small bowel are otherwise within normal limits for course, caliber and appearance, without evidence of wall thickening or obstruction. The appendix is again seen to be dilated, measuring at up to 1.6 cm in diameter, and demonstrates significant periappendiceal inflammatory stranding. This is slightly decreased in size when compared to the prior study, on which it measured at up to 1.8 cm in diameter. VESSELS: Scattered atherosclerotic calcifications are seen throughout the infrarenal abdominal aorta and iliac arteries. The abdominal aorta is within normal limits for course, caliber and appearance, without evidence of aneurysm. PERITONEUM/RETROPERIT ONEUM/LYMPH NODES: There are several tiny bubbles of extraluminal air identified anteriorly within the upper abdomen and within the right lower quadrant mesentery, and may be secondary to micro perforation. A small amount of free fluid is seen within the pelvis, new relative to the prior study. No gross mesenteric or retroperitoneal lymphadenopathy is identified. BONE AND SOFT TISSUE: There is no evidence of acute fracture identified. No evidence of abdominal wall mass or hernia is identified. MMODAL Broderick Meeks MD - 10/12/2024 Interpreted By: Broderick Meeks, STUDY: CT ABDOMEN WO IV CONTRAST; 10/12/2024 2:43 pm INDICATION: Signs/Symptoms:absces s. COMPARISON: CT dated 10/11/2024 ACCESSION NUMBER(S): [id number] ORDERING CLINICIAN: HONEY SHI TECHNIQUE: Contiguous axial images were obtained at 3mm slice thickness through the lower abdomen and pelvis without intravenous contrast administration. Coronal and sagittal reconstructions at 3 mm slice thickness were performed. FINDINGS: The study is somewhat limited by the lack of intravenous contrast. Visualized portions of the liver LIVER: The liver is within normal limits for appearance, without evidence of focal masses. BILE DUCTS: No definite intra or extrahepatic biliary dilatation is identified. GALLBLADDER: The gallbladder is nondilated. No definite calcified gallstones are seen. PANCREAS: The pancreas is within normal limits for appearance, without evidence of focal masses. SPLEEN: The visualized portion of the spleen is within normal limits for size. No focal splenic mass is seen. ADRENAL GLANDS: A nodule is seen in the right adrenal gland, measuring at up to 2.3 x 1.5 cm in diameter. This measures at less than 10 Hounsfield units in density and is consistent with a lipid rich adenoma. KIDNEYS AND URETERS: There is no hydronephrosis, hydroureter or renal/ ureteral calculus identified bilaterally. Multiple rounded hypodensities are seen from the kidneys bilaterally. These are incompletely evaluated without contrast, but are unchanged from the prior study, and are consistent with cysts. BOWEL: Scattered diverticuli are seen throughout the sigmoid colon. The visualized portions of the colon and small bowel are otherwise within normal limits for course, caliber and appearance, without evidence of wall thickening or obstruction. The appendix is again seen to be dilated, measuring at up to 1.6 cm in diameter, and demonstrates significant periappendiceal inflammatory stranding. This is slightly decreased in size when compared to the prior study, on which it measured at up to 1.8 cm in diameter. VESSELS: Scattered atherosclerotic calcifications are seen throughout the infrarenal abdominal aorta and iliac arteries. The abdominal aorta is within normal limits for course, caliber and appearance, without evidence of aneurysm. PERITONEUM/RETROPERIT ONEUM/LYMPH NODES: There are several tiny bubbles of extraluminal air identified anteriorly within the upper abdomen and within the right lower quadrant mesentery, and may be secondary to micro perforation. A small amount of free fluid is seen within the pelvis, new relative to the prior study. No gross mesenteric or retroperitoneal lymphadenopathy is identified. BONE AND SOFT TISSUE: There is no evidence of acute fracture identified. No evidence of abdominal wall mass or hernia is identified. IMPRESSION: 1. Dilated appendix with significant periappendiceal inflammatory stranding, slightly decreased in size when compared to the prior study. 2. Scattered tiny bubbles of extraperitoneal air within the abdomen, may represent micro perforation. 3. Small amount of free fluid within the pelvis, new relative to the prior study. 4. No evidence of bowel obstruction. Signed by: Broderick Meeks 10/12/2024 3:26 PM Dictation workstation: [id number] [facility] Work Phone: Radiology Study observation (narrative) [facility] Work Phone: CT Abdomen WO contrastOrdere d By: Broderick Meeks on 10-12-2024 [facility] Work Phone: Clostridioides difficile tox in A+B tcdA+tcdB geneson 10-12-2024 C. difficile toxin A+B tcdA+tcdB genes CLEMENTE+probe Ql (Stl) Clostridioides difficile toxin A+B tcdA+tcdB genes Not Detected Normal Not Detected [facility] Comment on above: Order Comment: Venip uncture immediately after or during the administration of Metamizole may lead to falsely low results. Testing should be performed immediately prior to Metamizole dosing. Performed By: #### 2 524-7 #### SU SCHNEIDER ([id number]) [facility] ([facility]) [address] [place] [address] Gastrointestinal pathogens i dentifiedon 10-12-2024 Gastrointestinal pathogens identified CLEMENTE+probe Nom (Stl) Campylobacter coli+jejuni+upsaliens is DNA Not Detected Salmonella sp DNA Not Detected Shigella sp DNA Not Detected Vibrio cholerae DNA Not Detected Yersinia enterocolitica DNA Not Detected Escherichia coli Stx1 toxin stx1 gene Not Detected Escherichia coli Stx2 toxin stx2 gene Not Detected Norovirus genogroup I AND II RNA Not Detected Rotavirus RNA Not Detected Normal Not Detected [facility] Comment on above: Performed By: #### 2 524-7 #### SU SCHNEIDER ([id number]) [facility] ([facility]) [address] [place] [address] Sodiumon 10-12-2024 Sodium (U) [Moles/Vol] 34 mmol/L [facility] Comment on above: Performed By: #### 2 524-7 #### SU SCHNEIDER ([id number]) [facility] ([facility]) [address] [place] [address] Sodium (U) [Moles/Vol]on Creatinine (U) [Mass/Vol] 229.3 mg/dL Normal 20.0-370.0 [facility] Comment on above: Performed By: #### 2 524-7 #### SU SCHNEIDER ([id number]) [facility] ([facility]) [facility] [place] [address] Sodium/Creatinine (U) [Ratio] 15 mmol/g Creat Normal Not established . [facility] Comment on above: Performed By: #### 2 524-7 #### SU SCHNEIDER ([id number]) [facility] ([facility]) [facility] [place] [address] Urinalysis complete W Reflex Culture panel (U)on 10-12-2024 Appearance (U) Ex.Turbid Abnormal Clear [facility] Bacteria Auto (Urine sed) [#/Area] 1+ Abnormal NONE SEEN /HPF [facility] Bilirubin (U) [Mass/Vol] Negative NEGATIVE [facility] Color (U) Light-[place] Abnormal Light-Yello w, Yellow, Dark-Yellow [facility] Epithelial cells.squamous Auto (Urine sed) [#/Area] 1-9 (SPARSE) Reference range not established . /HPF [facility] Glucose Auto test strip (U) [Mass/Vol] Normal Normal mg/dL [facility] Interpretation and review of laboratory results Abnormal [facility] Ketones (U) [Mass/Vol] TRACE Abnormal NEGAT DWIGHT mg/dL [facility] Leukocyte clumps Auto (Urine sed) [#/Area] OCCASIONAL Reference range not established . /HPF [facility] Leukocyte esterase Auto test strip Ql (U) Negative NEGATIVE [facility] Nitrite Auto test strip Ql (U) Negative NEGATIVE [facility] pH (U) 5.5 [pH] 5.0, 5.5, 6.0, 6.5, 7.0, 7.5, 8.0 [facility] Protein (U) [Mass/Vol] 100 (2+) Abnormal NEGAT DWIGHT, 10 (TRACE), 20 (TRACE) mg/dL [facility] RBC (U) [#/Vol] 0.2 (2+) Abnormal NEGATIVE [facility] RBC Auto (Urine sed) [#/Area] 11-20 Abnormal NONE, 1-2, 3-5 /HPF [facility] Specific gravity (U) [Rel density] 1.035 1.005 - 1.035 [facility] Urobilinogen (U) [Mass/Vol] Normal Normal mg/dL [facility] WBC Auto (Urine sed) [#/Area] 11-20 Abnormal 1-5, NONE /HPF [facility] Appearance (U) Ex.Turbid Normal Clear [facility] Comment on above: Performed By: #### 2 524-7 #### SU SCHNEIDER ([id number]) [facility] ([facility]) [address] [place] [address] Bacteria Auto (Urine sed) [#/Area] 1+ /HPF Abnormal NONE SEEN [facility] Comment on above: Performed By: #### 2 524-7 #### SU SCHNEIDER ([id number]) [facility] ([facility]) [address] [place] [address] Bilirubin (U) [Mass/Vol] Negative Normal NEGATIVE [facility] Comment on above: Performed By: #### 2 524-7 #### SU SCHNEIDER ([id number]) [facility] ([facility]) [address] [place], [place] [phone] Color (U) Light-[place] Normal Light-Yello w, Yellow, Dark-Yellow [facility] Comment on above: Performed By: #### 2 524-7 #### SU SCHNEIDER ([id number]) [facility] ([facility]) [address] [place] [address] 67209 Epithelial cells.squamous Auto (Urine sed) [#/Area] 1-9 (SPARSE) Normal Reference range not established . [facility] Comment on above: Performed By: #### 2 524-7 #### SU SCHNEIDER ([id number]) [facility] ([facility]) [address] [place] [address] 99070 Glucose Auto test strip (U) [Mass/Vol] Normal Normal Normal [facility] Comment on above: Performed By: #### 2 524-7 #### SU SCHNEIDER ([id number]) [facility] ([facility]) [address] [place] [address] 16743 Ketones (U) [Mass/Vol] TRACE Abnormal NEGATIVE [facility] Comment on above: Performed By: #### 2 524-7 #### SU SCHNEIDER ([id number]) [facility] ([facility]) [address] [place] [address] 66159 Leukocyte clumps Auto (Urine sed) [#/Area] OCCASIONAL Normal Reference range not established . [facility] Comment on above: Performed By: #### 2 524-7 #### SU SCHNEIDER ([id number]) [facility] ([facility]) [address] [place] [address] 92818 Leukocyte esterase Auto test strip Ql (U) Negative Normal NEGATIVE [facility] Comment on above: Performed By: #### 2 524-7 #### SU SCHNEIDER ([id number]) [facility] ([facility]) [address] [place] [address] 69682 Nitrite Auto test strip Ql (U) Negative Normal NEGATIVE [facility] Comment on above: Performed By: #### 2 524-7 #### SU SCHNEIDER ([id number]) [facility] ([facility]) [address] [place] [address] 29882 pH (U) 5.5 [pH] Normal 5.0, 5.5, 6.0, 6.5, 7.0, 7.5, 8.0 [facility] Comment on above: Performed By: #### 2 524-7 #### SU SCHNEIDER ([id number]) [facility] ([facility]) [address] [place] [address] 40261 Protein (U) [Mass/Vol] 100 (2+) Abnormal NEGAT DWIGHT, 10 (TRACE), 20 (TRACE) [facility] Comment on above: Performed By: #### 2 524-7 #### SU SCHNEIDER ([id number]) [facility] ([facility]) [address] [place], [place] [phone] RBC (U) [#/Vol] 0.2 (2+) Abnormal NEGATIVE [facility] Comment on above: Performed By: #### 2 524-7 #### SU SCHNEIDER ([id number]) [facility] ([facility]) [address] [place] [address] 63225 RBC Auto (Urine sed) [#/Area] 11-20 Abnormal NONE, 1-2, 3-5 [facility] Comment on above: Performed By: #### 2 524-7 #### SU SCHNEIDER ([id number]) [facility] ([facility]) [address] [place] [address] 98429 Specific gravity (U) [Rel density] 1.035 Normal 1.005-1.035 [facility] Comment on above: Performed By: #### 2 524-7 #### SU SCHNEIDER ([id number]) [facility] ([facility]) [address] [place] [address] 97099 Urobilinogen (U) [Mass/Vol] Normal Normal Normal [facility] Comment on above: Performed By: #### 2 524-7 #### SU SCHNEIDER ([id number]) [facility] ([facility]) [address] [place] [address] 10879 WBC Auto (Urine sed) [#/Area] 11-20 Abnormal 1-5, NONE [facility] Comment on above: Performed By: #### 2 524-7 #### SU SCHNEIDER ([id number]) [facility] ([facility]) [address] [place] [address] 03635 CBC W Auto Differential pane l (Bld)on 12-12-2024 Basophils (Bld) [#/Vol] 0.05 10*3/uL [facility] Basophils/100 WBC (Bld) 0.3 % 0.0 - 2.0 % [facility] Eosinophils (Bld) [#/Vol] 0.03 10*3/uL [facility] Eosinophils/100 WBC (Bld) 0.2 % 0.0 - 6.0 % [facility] Erythrocyte distribution width (RBC) [Ratio] 11.8 % 11.5 - 14.5 % [facility] Hematocrit (Bld) [Volume fraction] 39.6 % Low 41.0 - 52.0 % [facility] Hemoglobin (Bld) [Mass/Vol] 13.6 g/dL 13.5 - 17.5 g/dL [facility] Immature granulocytes (Bld) [#/Vol] 0.05 10*3/uL [facility] Immature granulocytes/100 WBC (Bld) 0.3 % 0.0 - 0.9 % [facility] Comment on above: Immature Granulocyte Count (IG) includes promyelocytes, myelocytes and metamyelocytes but does not include bands. Percent differential counts (%) should be interpreted in the context of the absolute cell counts (cells/UL). Interpretation and review of laboratory results Abnormal [facility] Lymphocytes (Bld) [#/Vol] 1.3 10*3/uL [facility] Lymphocytes/100 WBC (Bld) 8.1 % 13.0 - 44.0 % [facility] MCH (RBC) [Entitic mass] 32.8 pg 26.0 - 34.0 pg [facility] MCHC (RBC) [Mass/Vol] 34.3 g/dL 32.0 - 36.0 g/dL [facility] MCV (RBC) [Entitic vol] 95 fL 80 - 100 fL [facility] Monocytes (Bld) [#/Vol] 1.6 10*3/uL [facility] Monocytes/100 WBC (Bld) 9.9 % 2.0 - 10.0 % [facility] Neutrophils (Bld) [#/Vol] 13.08 10*3/uL [facility] Comment on above: Percent differential counts (%) should be interpreted in the context of the absolute cell counts (cells/uL). Neutrophils/100 WBC (Bld) 81.2 % 40.0 - 80.0 % [facility] Nucleated RBC/100 WBC (Bld) [Ratio] 0 % [facility] Platelets (Bld) [#/Vol] 242 10*3/uL [facility] RBC (Bld) [#/Vol] 4.15 10*6/uL Low [facility] WBC (Bld) [#/Vol] 16.1 10*3/uL High [facility] Basophils (Bld) [#/Vol] 0.05 x10*3/uL Normal 0.00-0.10 [facility] Comment on above: Performed By: #### 5 7021-8 #### SU SCHNEIDER ([id number]) [facility] ([facility]) [address] [place] [address] 54208 Basophils/100 WBC (Bld) 0.3 % Normal 0.0-2.0 [facility] Comment on above: Performed By: #### 5 7021-8 #### SU SCHNEIDER ([id number]) [facility] ([facility]) [address] [place] [address] 18464 Eosinophils (Bld) [#/Vol] 0.03 x10*3/uL Normal 0.00-0.70 [facility] Comment on above: Performed By: #### 5 7021-8 #### SU SCHNEIDER ([id number]) [facility] ([facility]) [address] [place] [address] 17229 Eosinophils/100 WBC (Bld) 0.2 % Normal 0.0-6.0 [facility] Comment on above: Performed By: #### 5 7021-8 #### SU SCHNEIDER ([id number]) [facility] ([facility]) [address] [place] [address] 49224 Erythrocyte distribution width (RBC) [Ratio] 11.8 % Normal 11.5-14.5 [facility] Comment on above: Performed By: #### 5 7021-8 #### SU SCHNEIDER ([id number]) [facility] ([facility]) [address] [place] [address] 83806 Hematocrit (Bld) [Volume fraction] 39.6 % Low 41.0-52.0 [facility] Comment on above: Performed By: #### 5 7021-8 #### SU SCHNEIDER ([id number]) [facility] ([facility]) [address] [place] [address] 85269 Hemoglobin (Bld) [Mass/Vol] 13.6 g/dL Normal 13.5-17.5 [facility] Comment on above: Performed By: #### 5 7021-8 #### SU SCHNEIDER ([id number]) [facility] ([facility]) [address] [place] [address] 23929 Immature granulocytes (Bld) [#/Vol] 0.05 x10*3/uL Normal 0.00-0.70 [facility] Comment on above: Performed By: #### 5 7021-8 #### SU SCHNEIDER ([id number]) [facility] ([facility]) [address] [place] [address] 20511 Immature granulocytes/100 WBC (Bld) 0.3 % Normal 0.0-0.9 [facility] Comment on above: Result Comment: Jaclyn ture Granulocyte Count (IG) includes promyelocytes, myelocytes and metamyelocytes but does not include bands. Percent differential counts (%) should be interpreted in the context of the absolute cell counts (cells/UL). Performed By: #### 5 7021-8 #### SU SCHNEIDER ([id number]) [facility] ([facility]) [address] [place] [address] 89315 Lymphocytes (Bld) [#/Vol] 1.30 x10*3/uL Normal 1.20-4.80 [facility] Comment on above: Performed By: #### 5 7021-8 #### SU SCHNEIDER ([id number]) [facility] ([facility]) [address] [place] [address] 31779 Lymphocytes/100 WBC (Bld) 8.1 % Normal 13.0-44.0 [facility] Comment on above: Performed By: #### 5 7021-8 #### SU SCHNEIDER ([id number]) [facility] ([facility]) [address] [place] [address] 68907 MCH (RBC) [Entitic mass] 32.8 pg Normal 26.0-34.0 [facility] Comment on above: Performed By: #### 5 7021-8 #### SU SCHNEIDER ([id number]) [facility] ([facility]) [address] [place] [address] 86207 MCHC (RBC) [Mass/Vol] 34.3 g/dL Normal 32.0-36.0 [facility] Comment on above: Performed By: #### 5 7021-8 #### SU SCHNEIDER ([id number]) [facility] ([facility]) [address] [place] [address] MCV (RBC) [Entitic vol] 95 fL Normal 80-100 [facility] Comment on above: Performed By: #### 5 7021-8 #### SU SCHNEIDER ([id number]) [facility] ([facility]) [address] [place] [address] 10908 Monocytes (Bld) [#/Vol] 1.60 x10*3/uL High 0.10-1.00 [facility] Comment on above: Performed By: #### 5 7021-8 #### SU SCHNEIDER ([id number]) [facility] ([facility]) [address] [place] [address] 78243 Monocytes/100 WBC (Bld) 9.9 % Normal 2.0-10.0 [facility] Comment on above: Performed By: #### 5 7021-8 #### SU SCHNEIDER ([id number]) [facility] ([facility]) [address] [place] [address] 21451 Neutrophils (Bld) [#/Vol] 13.08 x10*3/uL High 1.20-7.70 [facility] Comment on above: Result Comment: Perc ent differential counts (%) should be interpreted in the context of the absolute cell counts (cells/uL). Performed By: #### 5 7021-8 #### SU SCHNEIDER ([id number]) [facility] ([facility]) [address] [place] [address] 81884 Neutrophils/100 WBC (Bld) 81.2 % Normal 40.0-80.0 [facility] Comment on above: Performed By: #### 5 7021-8 #### SU SCHNEIDER ([id number]) [facility] ([facility]) [address] [place] [address] 36660 Nucleated RBC/100 WBC (Bld) [Ratio] 0.0 /100 WBCs Normal 0.0-0.0 [facility] Comment on above: Performed By: #### 5 7021-8 #### SU SCHNEIDER ([id number]) [facility] ([facility]) [address] [place] [address] 40592 Platelets (Bld) [#/Vol] 242 x10*3/uL Normal 150-450 [facility] Comment on above: Performed By: #### 5 7021-8 #### SU SCHNEIDER ([id number]) [facility] ([facility]) [address] [place] [address] 43505 RBC (Bld) [#/Vol] 4.15 x10*6/uL Low 4.50-5.90 [facility] Comment on above: Performed By: #### 5 7021-8 #### SU SCHNEIDER ([id number]) [facility] ([facility]) [address] [place] [address] 49410 WBC (Bld) [#/Vol] 16.1 x10*3/uL High 4.4-11.3 [facility] Comment on above: Performed By: #### 5 7021-8 #### SU SCHNEIDER ([id number]) [facility] ([facility]) [address] [place] [address] ABDOMEN PELVIS W IV CONTR Haleigh 10-11-2024 CT ABDOMEN PELVIS W IV CONTRAST (03:20) Zulma Mendez: okay will connect (03:22) Zulma Mendez: re Sofya Oliver Dr. Signed by Richard Porter MD STUDY: CT Abdomen and Pelvis with IV Contrast; 10/11/2024 at 2:39 AM. INDICATION: Right lower quadrant abdominal pain. COMPARISON: None available. ACCESSION NUMBER(S): [id number] ORDERING CLINICIAN: JIMENEZ HUTCHINSON TECHNIQUE: CT of the abdomen and pelvis was performed. Contiguous axial images were obtained at 3 mm slice thickness through the abdomen and pelvis. Coronal and sagittal reconstructions at 3 mm slice thickness were performed. Omnipaque 350 67 mL was administered intravenously. FINDINGS: LOWER CHEST: No cardiomegaly. No pericardial effusion. Lung bases are clear. ABDOMEN: LIVER: No hepatomegaly. Multiple cysts are seen in the liver largest measures 2.5 cm. BILE DUCTS: No intrahepatic or extrahepatic biliary ductal dilatation. GALLBLADDER: The gallbladder is normal. STOMACH: No abnormalities identified. PANCREAS: No masses or ductal dilatation. SPLEEN: No splenomegaly or focal splenic lesion. ADRENAL GLANDS: No thickening or nodules. KIDNEYS AND URETERS: Bilateral renal cysts, the largest measures 3 cm. No renal or ureteral calculi. PELVIS: BLADDER: No abnormalities identified. REPRODUCTIVE ORGANS: No abnormalities identified. BOWEL: Diverticulosis of the colon. VESSELS: No abnormalities identified. Abdominal aorta is normal in caliber. PERITONEUM/RETROPERIT ONEUM/LYMPH NODES: No free fluid. No pneumoperitoneum. No lymphadenopathy. ABDOMINAL WALL: No abnormalities identified. SOFT TISSUES: No abnormalities identified. BONES: No acute fracture or aggressive osseous lesion. There is enlargement of the appendix with marked adjacent fat stranding suggesting perforated appendicitis. IMPRESSION: Acute perforated appendicitis. Signed by Richard Porter MD [facility] CT Abdomen and Pelvis W cont rast Wisam 10-11-2024 Addendum by Richard Porter MD on 10/11/2024 3:44 AM EST (03:20) Zulma Mendez: [email or web address] will connect (03:22) Zulma Mendez: re Sofya Oliver Dr. Signed by Richard Porter MD [facility] Work Phone: Acute perforated appendicitis. Signed by Richard Porter MD TELERADIOLOGY STUDY: CT Abdomen and Pelvis with IV Contrast; 10/11/2024 at 2:39 AM. INDICATION: Right lower quadrant abdominal pain. COMPARISON: None available. ACCESSION NUMBER(S): [id number] ORDERING CLINICIAN: JIMENEZ HUTCHINSON TECHNIQUE: CT of the abdomen and pelvis was performed. Contiguous axial images were obtained at 3 mm slice thickness through the abdomen and pelvis. Coronal and sagittal reconstructions at 3 mm slice thickness were performed. Omnipaque 350 67 mL was administered intravenously. FINDINGS: LOWER CHEST: No cardiomegaly. No pericardial effusion. Lung bases are clear. ABDOMEN: LIVER: No hepatomegaly. Multiple cysts are seen in the liver largest measures 2.5 cm. BILE DUCTS: No intrahepatic or extrahepatic biliary ductal dilatation. GALLBLADDER: The gallbladder is normal. STOMACH: No abnormalities identified. PANCREAS: No masses or ductal dilatation. SPLEEN: No splenomegaly or focal splenic lesion. ADRENAL GLANDS: No thickening or nodules. KIDNEYS AND URETERS: Bilateral renal cysts, the largest measures 3 cm. No renal or ureteral calculi. PELVIS: BLADDER: No abnormalities identified. REPRODUCTIVE ORGANS: No abnormalities identified. BOWEL: Diverticulosis of the colon. VESSELS: No abnormalities identified. Abdominal aorta is normal in caliber. PERITONEUM/RETROPERIT ONEUM/LYMPH NODES: No free fluid. No pneumoperitoneum. No lymphadenopathy. ABDOMINAL WALL: No abnormalities identified. SOFT TISSUES: No abnormalities identified. BONES: No acute fracture or aggressive osseous lesion. There is enlargement of the appendix with marked adjacent fat stranding suggesting perforated appendicitis. TELERADIOLOGY Richard Porter MD - 10/11/2024 STUDY: CT Abdomen and Pelvis with IV Contrast; 10/11/2024 at 2:39 AM. INDICATION: Right lower quadrant abdominal pain. COMPARISON: None available. ACCESSION NUMBER(S): [id number] ORDERING CLINICIAN: JIMENEZ HUTCHINSON TECHNIQUE: CT of the abdomen and pelvis was performed. Contiguous axial images were obtained at 3 mm slice thickness through the abdomen and pelvis. Coronal and sagittal reconstructions at 3 mm slice thickness were performed. Omnipaque 350 67 mL was administered intravenously. FINDINGS: LOWER CHEST: No cardiomegaly. No pericardial effusion. Lung bases are clear. ABDOMEN: LIVER: No hepatomegaly. Multiple cysts are seen in the liver largest measures 2.5 cm. BILE DUCTS: No intrahepatic or extrahepatic biliary ductal dilatation. GALLBLADDER: The gallbladder is normal. STOMACH: No abnormalities identified. PANCREAS: No masses or ductal dilatation. SPLEEN: No splenomegaly or focal splenic lesion. ADRENAL GLANDS: No thickening or nodules. KIDNEYS AND URETERS: Bilateral renal cysts, the largest measures 3 cm. No renal or ureteral calculi. PELVIS: BLADDER: No abnormalities identified. REPRODUCTIVE ORGANS: No abnormalities identified. BOWEL: Diverticulosis of the colon. VESSELS: No abnormalities identified. Abdominal aorta is normal in caliber. PERITONEUM/RETROPERIT ONEUM/LYMPH NODES: No free fluid. No pneumoperitoneum. No lymphadenopathy. ABDOMINAL WALL: No abnormalities identified. SOFT TISSUES: No abnormalities identified. BONES: No acute fracture or aggressive osseous lesion. There is enlargement of the appendix with marked adjacent fat stranding suggesting perforated appendicitis. IMPRESSION: Acute perforated appendicitis. Signed by Richard Porter MD [facility] Work Phone: Radiology Study observation (narrative) [facility] Work Phone: CT Abdomen and Pelvis W cont rast IVOrdered By: Richard Porter on 10-11-2024 [facility] Work Phone: Comprehensive metabolic 2000 panelon 10-11-2024 Albumin BCP dye [Mass/Vol] 4.3 g/dL 3.4 - 5.0 g/dL [facility] ALP [Catalytic activity/Vol] 68 U/L 33 - 136 U/L [facility] ALT With P-5'-P [Catalytic activity/Vol] 16 U/L 10 - 52 U/L [facility] Comment on above: Patients treated wit h Sulfasalazine may generate falsely decreased results for ALT. Anion gap [Moles/Vol] 13 mmol/L 10 - 2 0 mmol/L [facility] AST With P-5'-P [Catalytic activity/Vol] 13 U/L 9 - 39 U/L [facility] Bilirubin [Mass/Vol] 1.1 mg/dL 0.0 - 1 .2 mg/dL [facility] Calcium [Mass/Vol] 9.4 mg/dL 8.6 - 10. 3 mg/dL [facility] Chloride [Moles/Vol] 97 mmol/L Low 98 - 10 7 mmol/L [facility] CO2 [Moles/Vol] 27 mmol/L 21 - 32 mmol/L [facility] Creatinine [Mass/Vol] 1.01 mg/dL 0.50 - 1.30 mg/dL [facility] GFR/1.73 sq M.predicted among non-blacks MDRD (S/P/Bld) [Vol rate/Area] 81 mL/min/{1.73_m2} - PINF [facility] Comment on above: Calculations of jeremie mated GFR are performed using the 2020 CKD-EPI Study Refit equation without the race variable for the IDMS-Traceable creatinine methods. https://jasn.asnjournals.org/content/early/ASN.2020 822809 Glucose [Mass/Vol] 122 mg/dL High 74 - 99 mg/dL [facility] Interpretation and review of laboratory results Abnormal [facility] Potassium [Moles/Vol] 3.6 mmol/L 3.5 - 5.3 mmol/L [facility] Protein [Mass/Vol] 7.6 g/dL 6.4 - 8.2 g/dL [facility] Sodium [Moles/Vol] 133 mmol/L Low 136 - 145 mmol/L [facility] Urea nitrogen [Mass/Vol] 11 mg/dL 6 - 23 mg/dL [facility] Albumin BCP dye [Mass/Vol] 4.3 g/dL Normal 3.4-5.0 [facility] Comment on above: Performed By: #### 2 4323-8 #### SU SCHNEIDER ([id number]) [facility] ([facility]) [address] [place] [address] ALP [Catalytic activity/Vol] 68 U/L Normal 33-136 [facility] Comment on above: Performed By: #### 2 4323-8 #### SU SCHNEIDER ([id number]) [facility] ([facility]) [address] [place], [place] [address] ALT With P-5'-P [Catalytic activity/Vol] 16 U/L Normal 10-52 [facility] Comment on above: Result Comment: Jenni ents treated with Sulfasalazine may generate falsely decreased results for ALT. Performed By: #### 2 432-8 #### SU SCHNEIDER ([id number]) [facility] ([facility]) [address] [place] [address] Anion gap [Moles/Vol] 13 mmol/L Normal 10-20 [facility] Comment on above: Performed By: #### 2 432-8 #### SU SCHNEIDER ([id number]) [facility] ([facility]) [address] [place] [address] AST With P-5'-P [Catalytic activity/Vol] 13 U/L Normal 9-39 [facility] Comment on above: Performed By: #### 2 4322-8 #### SU SCHNEIDER ([id number]) [facility] ([facility]) [address] [place] [address] 42144 Bilirubin [Mass/Vol] 1.1 mg/dL Normal 0.0-1.2 [facility] Comment on above: Performed By: #### 2 4322-8 #### SU SCHNEIDER ([id number]) [facility] ([facility]) [address] [place] [address] Calcium [Mass/Vol] 9.4 mg/dL Normal 8.6-10.3 [facility] Comment on above: Performed By: #### 2 4322-8 #### SU SCHNEIDER ([id number]) [facility] ([facility]) [address] [place] [address] Chloride [Moles/Vol] 97 mmol/L Low 98-107 [facility] Comment on above: Performed By: #### 2 432-8 #### SU SCHNEIDER ([id number]) [facility] ([facility]) [address] [place] [address] CO2 [Moles/Vol] 27 mmol/L Normal 21-32 [facility] Comment on above: Performed By: #### 2 432-8 #### SU SCHNEIDER ([id number]) [facility] ([facility]) [address] [place] [address] Creatinine [Mass/Vol] 1.01 mg/dL Normal 0.50-1.30 [facility] Comment on above: Performed By: #### 2 4323-8 #### SU SCHNEIDER ([id number]) [facility] ([facility]) [address] [place] [address] 94443 Glomerular filtration rate/1.73 sq M.predicted 81 mL/min/1.73m*2 Normal >60 [facility] Comment on above: Result Comment: Calc ulations of estimated GFR are performed using the 2020 CKD-EPI Study Refit equation without the race variable for the IDMS-Traceable creatinine methods. https://jasn.asnjournals.org/content/early/ASN.2020 364250 Performed By: #### 2 4323-8 #### SU SCHNEIDER ([id number]) [facility] ([facility]) [address] [place] [address] 97583 Glucose [Mass/Vol] 122 mg/dL High 74-99 [facility] Comment on above: Performed By: #### 2 4323-8 #### SU SCHNEIDER ([id number]) [facility] ([facility]) [address] [place] [address] 52849 Potassium [Moles/Vol] 3.6 mmol/L Normal 3.5-5.3 [facility] Comment on above: Performed By: #### 2 4323-8 #### SU SCHNEIDER ([id number]) [facility] ([facility]) [address] [place] [address] 62547 Protein [Mass/Vol] 7.6 g/dL Normal 6.4-8.2 [facility] Comment on above: Performed By: #### 2 4323-8 #### SU SCHNEIDER ([id number]) [facility] ([facility]) [address] [place] [address] 78571 Sodium [Moles/Vol] 133 mmol/L Low 136-145 [facility] Comment on above: Performed By: #### 2 4323-8 #### SU SCHNEIDER ([id number]) [facility] ([facility]) [address] [place] [address] Urea nitrogen [Mass/Vol] 11 mg/dL Normal 6-23 [facility] Comment on above: Performed By: #### 2 4323-8 #### SU SCHNEIDER ([id number]) [facility] ([facility]) [facility] [place] [address] Laboratory - Chemistry and C hemistry - challengeon 10-11-2024 Lipase [Catalytic activity/Vol] 14 U/L - U/L [facility] Lactate [Moles/Vol] 1.3 mmol/L 0.4 - 2. 0 mmol/L [facility] Lactateon 10-11-2024 Lactate [Moles/Vol] 1.3 mmol/L Normal 0.4-2.0 [facility] Comment on above: Order Comment: Venip uncture immediately after or during the administration of Metamizole may lead to falsely low results. Testing should be performed immediately prior to Metamizole dosing. Performed By: #### 2 524-7 #### SU SCHNEIDER ([id number]) [facility] ([facility]) [facility] [place] [address] Lactate [Moles/Vol]on 2023 Interpretation and review of laboratory results Normal [facility] Venipuncture immediately after or during the administration of Metamizole may lead to falsely low results. Testing should be performed immediately prior to Metamizole dosing. [facility] Lipase [Catalytic activity/V ol]on 10-11-2024 Interpretation and review of laboratory results Normal [facility] Venipuncture immediately after or during the administration of Metamizole may lead to falsely low results. Testing should be performed immediately prior to Metamizole dosing. [facility] Triacylglycerol lipaseon Lipase [Catalytic activity/Vol] 14 U/L Normal [facility] Comment on above: Order Comment: Venip uncture immediately after or during the administration of Metamizole may lead to falsely low results. Testing should be performed immediately prior to Metamizole dosing. Performed By: #### 3 040-3 #### SU SCHNEIDER ([id number]) [facility] ([facility]) [address] [place] [address] Urinalysis complete W Reflex Culture panel (U)on 10-11-2024 Appearance (U) Clear Clear [facility] Bilirubin (U) [Mass/Vol] Negative NEGATIVE [facility] Color (U) Light-Yellow Light-Yello w, Yellow, Dark-Yellow [facility] Glucose Auto test strip (U) [Mass/Vol] Normal Normal mg/dL [facility] Interpretation and review of laboratory results Abnormal [facility] Ketones (U) [Mass/Vol] Negative NEGAT DWIGHT mg/dL [facility] Leukocyte esterase Auto test strip Ql (U) Negative NEGATIVE [facility] Mucus Auto (Urine sed) [#/Area] FEW Reference range not established . /LPF [facility] Nitrite Auto test strip Ql (U) Negative NEGATIVE [facility] pH (U) 6.5 [pH] 5.0, 5.5, 6.0, 6.5, 7.0, 7.5, 8.0 [facility] Protein (U) [Mass/Vol] 10 (TRACE) NEGAT DWIGHT, 10 (TRACE), 20 (TRACE) mg/dL [facility] RBC (U) [#/Vol] 0.06 (1+) Abnormal NEGATIVE [facility] RBC Auto (Urine sed) [#/Area] 3-5 NONE, 1-2, 3-5 /HPF [facility] Specific gravity (U) [Rel density] 1.026 1.005 - 1.035 [facility] Urobilinogen (U) [Mass/Vol] Normal Normal mg/dL [facility] WBC Auto (Urine sed) [#/Area] 1-5 1-5, NONE /HPF [facility] Appearance (U) Clear Normal Clear [facility] Comment on above: Performed By: #### 5 8077-9 #### SU SCHNEIDER ([id number]) [facility] ([facility]) [facility] [place] [address] Bilirubin (U) [Mass/Vol] Negative Normal NEGATIVE [facility] Comment on above: Performed By: #### 5 8077-9 #### SU SCHNEIDER ([id number]) [facility] ([facility]) [address] [place] [address] Color (U) Light-Yellow Normal Light-Yello w, Yellow, Dark-Yellow [facility] Comment on above: Performed By: #### 5 8077-9 #### SU SCHNEIDER ([id number]) [facility] ([facility]) [address] [place], [place] [address] Glucose Auto test strip (U) [Mass/Vol] Normal Normal Normal [facility] Comment on above: Performed By: #### 5 8077-9 #### SU SCHNEIDER ([id number]) [facility] ([facility]) [address] [place] [address] Ketones (U) [Mass/Vol] Negative Normal NEGATIVE [facility] Comment on above: Performed By: #### 5 8077-9 #### SU SCHNEIDER ([id number]) [facility] ([facility]) [address] [place], [place] [address] Leukocyte esterase Auto test strip Ql (U) Negative Normal NEGATIVE [facility] Comment on above: Performed By: #### 5 8077-9 #### SU SCHNEIDER ([id number]) [facility] ([facility]) [address] [place], [place] [address] Mucus Auto (Urine sed) [#/Area] FEW Normal Reference range not established . [facility] Comment on above: Performed By: #### 5 8077-9 #### SU SCHNEIDER ([id number]) [facility] ([facility]) [address] [place] [address] 54285 Nitrite Auto test strip Ql (U) Negative Normal NEGATIVE [facility] Comment on above: Performed By: #### 5 8077-9 #### SU SCHNEIDER ([id number]) [facility] ([facility]) [address] [place] [address] 46915 pH (U) 6.5 [pH] Normal 5.0, 5.5, 6.0, 6.5, 7.0, 7.5, 8.0 [facility] Comment on above: Performed By: #### 5 8077-9 #### SU SCHNEIDER ([id number]) [facility] ([facility]) [address] [place] [address] 24587 Protein (U) [Mass/Vol] 10 (TRACE) Normal NEGAT DWIGHT, 10 (TRACE), 20 (TRACE) [facility] Comment on above: Performed By: #### 5 8077-9 #### SU SCHNEIDER ([id number]) [facility] ([facility]) [address] [place] [address] RBC (U) [#/Vol] 0.06 (1+) Abnormal NEGATIVE [facility] Comment on above: Performed By: #### 5 8077-9 #### SU SCHNEIDER ([id number]) [facility] ([facility]) [address] [place] [address] RBC Auto (Urine sed) [#/Area] 3-5 Normal NONE, 1-2, 3-5 [facility] Comment on above: Performed By: #### 5 8077-9 #### SU SCHNEIDER ([id number]) [facility] ([facility]) [address] [place] [address] Specific gravity (U) [Rel density] 1.026 Normal 1.005-1.035 [facility] Comment on above: Performed By: #### 5 8077-9 #### SU SCHNEIDER ([id number]) [facility] ([facility]) [address] [place] [address] Urobilinogen (U) [Mass/Vol] Normal Normal Normal [facility] Comment on above: Performed By: #### 5 8077-9 #### SU SCHNEIDER ([id number]) [facility] ([facility]) [address] [place] [id number] WBC Auto (Urine sed) [#/Area] 1-5 Normal 1-5, NONE [facility] Comment on above: Performed By: #### 5 [id number] #### SU SCHNEIDER ([id number]) [facility] ([facility]) [address] [place] [address] Vital Signs Date Time Vital Sign Value Performing Clinician Facility 12-12-2024 07:50-0500 Body mass index (BMI) [Ratio] 28.43 kg/m2 Facundo Woods MD Work Phone: [facility] 12-12-2024 07:50-0500 Body weight 84.82 kg Facundo Woods MD Work Phone: [facility] 12-12-2024 07:50-0500 Diastolic blood pressure 78 mm[Hg] Facundo Woods MD Work Phone: [facility] 12-12-2024 07:50-0500 Heart rate 69 /min Facundo Woods MD Work Phone: [facility] 12-12-2024 07:50-0500 Systolic blood pressure 127 mm[Hg] Facundo Woods MD Work Phone: [facility] 11-24-2024 11:01-0500 Body temperature 97.7 [degF] Facundo Woods MD Work Phone: [facility] 11-24-2024 11:01-0500 Diastolic blood pressure 69 mm[Hg] Facundo Woods MD Work Phone: [facility] 11-24-2024 11:01-0500 Heart rate 86 /min Facundo Woods MD Work Phone: [facility] 11-24-2024 11:01-0500 SaO2% (BldA) [Mass fraction] 95 % Facundo Woods MD Work Phone: [facility] 11-24-2024 11:01-0500 Systolic blood pressure 107 mm[Hg] Facundo Woods MD Work Phone: [facility] 11-24-2024 09:56-0500 Respiratory rate 16 /min Facundo Woods MD Work Phone: [facility] 11-23-2024 06:12-0500 Body height 172.7 cm Facundo Woods MD Work Phone: [facility] 11-23-2024 06:12-0500 Body mass index (BMI) [Ratio] 28.16 kg/m2 Facundo Woods MD Work Phone: [facility] 11-23-2024 06:12-0500 Body weight 84 kg Facundo Woods MD Work Phone: [facility] 11-05-2024 09:21-0500 Body height 172.7 cm Facundo Woods MD Work Phone: [facility] 11-05-2024 09:21-0500 Body mass index (BMI) [Ratio] 28.8 kg/m2 Facundo Woods MD Work Phone: [facility] 11-05-2024 09:21-0500 Body weight 85.91 kg Facundo Woods MD Work Phone: [facility] 11-05-2024 09:21-0500 Diastolic blood pressure 54 mm[Hg] Facundo Woods MD Work Phone: [facility] 11-05-2024 09:21-0500 Heart rate 82 /min Facundo Woods MD Work Phone: [facility] 11-05-2024 09:21-0500 Respiratory rate 16 /min Facundo Woods MD Work Phone: [facility] 11-05-2024 09:21-0500 SaO2% (BldA) [Mass fraction] 97 % Facundo Woods MD Work Phone: [facility] 11-05-2024 09:21-0500 Systolic blood pressure 113 mm[Hg] Facundo Woods MD Work Phone: [facility] 10-19-2024 11:48-0500 Body temperature 98.8 [degF] Jag Medrano MD Work Phone: [facility] 10-19-2024 11:48-0500 Diastolic blood pressure 68 mm[Hg] Jag Medrano MD Work Phone: [facility] 10-19-2024 11:48-0500 Heart rate 79 /min Jag Medrano MD Work Phone: [facility] 10-19-2024 11:48-0500 Respiratory rate 16 /min Jag Medrano MD Work Phone: [facility] 10-19-2024 11:48-0500 SaO2% (BldA) [Mass fraction] 94 % Jag Medrano MD Work Phone: [facility] 10-19-2024 11:48-0500 Systolic blood pressure 109 mm[Hg] Jag Medrano MD Work Phone: [facility] 10-17-2024 21:16-0500 Body height 172.7 cm Jag Medrano MD Work Phone: [facility] 10-17-2024 21:16-0500 Body mass index (BMI) [Ratio] 29.33 kg/m2 Jag Medrano MD Work Phone: [facility] 10-17-2024 21:16-0500 Body weight 87.5 kg Jag Medrano MD Work Phone: [facility] 10-17-2024 19:27-0500 Body temperature 97.5 [degF] Jimenez Youngersen DO Work Phone: [facility] 10-17-2024 19:27-0500 Diastolic blood pressure 78 mm[Hg] Jimenez Hutchinson DO Work Phone: [facility] 10-17-2024 19:27-0500 Heart rate 79 /min Jimenez Hutchinson DO Work Phone: [facility] 10-17-2024 19:27-0500 Respiratory rate 18 /min Jimenez Hutchinson DO Work Phone: [facility] 10-17-2024 19:27-0500 SaO2% (BldA) [Mass fraction] 96 % Jimenez Hutchinson DO Work Phone: [facility] 10-17-2024 19:27-0500 Systolic blood pressure 145 mm[Hg] Jimenez Youngersen DO Work Phone: [phone] [place] [address] 10-17-2024 05:47-0500 Body mass index (BMI) [Ratio] 29.03 kg/m2 Jimenez Hutchinson DO Work Phone: [facility] 10-17-2024 05:47-0500 Body weight 87.9 kg Jimenez Hutchinson DO Work Phone: [facility] 10-12-2024 11:06-0500 Body temperature 97.9 [degF] Jimenez Hutchinson DO Work Phone: [facility] 10-12-2024 11:06-0500 Diastolic blood pressure 72 mm[Hg] Jimenez Hutchinson DO Work Phone: [phone] [place] [address] 10-12-2024 11:06-0500 Heart rate 72 /min Jimenez Hutchinson DO Work Phone: [phone] [place] [address] 10-12-2024 11:06-0500 Respiratory rate 16 /min Jimenez Hutchinson DO Work Phone: [facility] 10-12-2024 11:06-0500 SaO2% (BldA) [Mass fraction] 96 % Jimenez Hutchinson DO Work Phone: [facility] 10-12-2024 11:06-0500 Systolic blood pressure 114 mm[Hg] Jimenez Hutchinson DO Work Phone: [facility] 10-11-2024 05:08-0500 Body height 174 cm Jimenez Hutchinson DO Work Phone: [facility] 10-11-2024 05:08-0500 Body mass index (BMI) [Ratio] 28.93 kg/m2 Jimenez Hutchinson DO Work Phone: [facility] 10-11-2024 05:08-0500 Body weight 87.6 kg Jimenez Hutchinson DO Work Phone: [facility] Encounters Encounter Date Encounter Type Care Provider Facility Start: 03-22-2025 End: 03-22-2025 ambulatory Bashir ADAME Work Phone: [facility] Work Phone: Start: 03-22-2025 End: 03-22-2025 Patient encounter procedure Bashir Cleary [employer] [facility] Work Phone: Start: 03-22-2025 End: 03-22-2025 ambulatory [facility] Facility:[facility] Start: 12-12-2024 End: 12-12-2024 Postop follow up visit related to original px Facundo Woods MD Work Phone: [facility] Comment on above: S/P laparoscopic milad endectomy (Primary Dx) Start: 12-12-2024 End: 12-12-2024 ambulatory [facility] Start: 11-23-2024 End: 11-24-2024 ambulatory [facility] Start: 11-23-2024 End: 11-24-2024 Subsequent hospital visit by physician Facundo Woods MD Work Phone: [facility] Start: 11-14-2024 Preprocedural examin ation done Facundo Woods MD Work Phone: [facility] Start: 11-14-2024 Encounter for other preprocedural examination [facility] Start: 11-14-2024 End: 11-18-2024 ambulatory [facility] Start: 11-14-2024 End: 11-18-2024 Encounter for other preprocedural examination [facility] Start: 11-05-2024 End: 11-05-2024 Office outpatient visit 25 minutes Facundo Woods MD Work Phone: [facility] Comment on above: Perforated appendici tis (Primary Dx) Start: 11-05-2024 End: 11-05-2024 ambulatory [facility] Start: 10-17-2024 End: 10-19-2024 Evaluation and management of inpatient Facundo Woods MD Work Phone: [facility] Start: 10-11-2024 End: 10-17-2024 Evaluation and management of inpatient Jimenez Hutchinson DO Work Phone: [facility] Comment on above: Other acute appendic itis (Primary Dx) Procedures Date Procedure Procedure Detail Performing Clinician Start: 03-22-2025 Prostate specific an tigen measurement Bashir Cleary [employer] Work Phone: Comment on above: This test was perfor med using the [employer] tPSA method. Measured values of a patient sample can vary depending on the testing procedure used. PSA values determined on patient samples by different testing procedures cannot be used interchangeably. If there is a change in PSA assays while monitoring therapy, sequential testing should be performed to confirm baseline values. Start: 12-12-2024 Follow-up visit Follow-up FACUNDOBRETT TIM WODOS Start: 10-19-2024 Comprehensive metabo lic panel Erlinda Fentonkhadijah Kalina DO Work Phone: Start: 10-19-2024 Hepatic function panel Erlinda Fentonkhadijah Kalina DO Work Phone: Start: 10-19-2024 Red blood cell morphology Erlinda Fentonkhadijah Kalina DO Work Phone: Start: 10-18-2024 C-reactive protein Chin edu Ubaldo Carlsonike FIRE TECHNICIAN Work Phone: Start: 10-18-2024 Culture bacterial bl ood aerobic w/id isolates José Antonio P Ezike FIRE TECHNICIAN Work Phone: Start: 10-18-2024 Sedimentation rate r bc automated José Antonio P Ezike FIRE TECHNICIAN Work Phone: Start: 10-18-2024 Img-guide fluid shana xn drainag cath periton perq Erlindaaltagracia Solano Kalina DO Work Phone: Start: 10-18-2024 Cul bact xcpt urine blood/stool aerobic isol Erlinda Xiomara Novaklo DO Work Phone: Start: 10-18-2024 Prothrombin time Kevyn Ortiz DO Work Phone: Start: 10-18-2024 Ct abdomen & pelvis w/o contrst 1/> body re Erlinda Gilman DO Work Phone: Start: 10-18-2024 Comprehensive metabo lic panel Erlinda Gilman DO Work Phone: Start: 10-18-2024 Hepatic function panel Erlinda Gilman DO Work Phone: Start: 10-18-2024 Red blood cell morphology Erlinda Gilman DO Work Phone: Start: 10-17-2024 Comprehensive metabo lic panel Erlinda Gilman DO Work Phone: Start: 10-17-2024 Hepatic function panel Erlinda Gilman DO Work Phone: Start: 10-17-2024 Red blood cell morphology Erlinda Gilman DO Work Phone: Start: 10-17-2024 Basic metabolic pane l calcium total Carly Joseph MD Work Phone: Start: 10-16-2024 Basic metabolic pane l calcium total Carly Joseph MD Work Phone: Start: 10-15-2024 Basic metabolic pane l calcium total Carly Joseph MD Work Phone: Start: 10-14-2024 Basic metabolic pane l calcium total Honey Shi MD Work Phone: Start: 10-14-2024 Basic metabolic pane l calcium total Donte Becerra DO Work Phone: Start: 10-13-2024 Urinalysis complete W Reflex Culture panel - Urine Carly Joseph MD Work Phone: Start: 10-13-2024 Urnls dip stick/tabl et reagent auto microscopy Carly Joseph MD Work Phone: Start: 10-13-2024 Basic metabolic pane l calcium total Donte Becerra DO Work Phone: Start: 10-12-2024 End: 10-12-2024 Culture bacterial quanttative colony count urine Carly Joseph MD Work Phone: Start: 10-12-2024 EXTRA URINE GUTIÉRREZ TUBE H danielle Joseph MD Work Phone: Start: 10-12-2024 Urinalysis complete W Reflex Culture panel - Urine Carly Joseph MD Work Phone: Start: 10-12-2024 Creatinine other source Carly Joseph MD Work Phone: Start: 10-12-2024 Inf agent det nuclei c acid clostridium amp probe Honey Shi MD Work Phone: Start: 10-12-2024 Ct abdomen w/o contr ast material Honey Shi MD Work Phone: Start: 10-12-2024 Basic metabolic pane l calcium total Enrrique Sadler MD Work Phone: Start: 10-11-2024 Ct abdomen & pelvis w/contrast material Jimenez Hutchinson DO Work Phone: Start: 10-11-2024 Urinalysis complete W Reflex Culture panel - Urine Jimenez Hutchinson DO Work Phone: Start: 10-11-2024 Urnls dip stick/tabl et reagent auto microscopy Jimenez Hutchinson DO Work Phone: Start: 10-11-2024 Comprehensive metabo lic panel Jimenez Hutchinson DO Work Phone: Start: 07-23-2008 Colonoscopy Jimenez brown DO Work Phone: Plan of Treatment Date Care Activity Detail Author Start: 03-16-2033 DTaP/Tdap/Td Vaccine s (2 - Td or Tdap) DTaP/Tdap/Td Vaccines (2 - Td or Tdap) [facility] Start: 03-16-2033 Tetanus vaccination Tetanus: Every 1 0yrs [facility] Start: 2029 Respiratory Syncytia l Virus Immunization: Risk, 60-74 Risk, or 75+ (1 - 1-dose 75+ series) Respiratory Syncytial Virus Immunization: Risk, 60-74 Risk, or 75+ (1 - 1-dose 75+ series) [facility] Start: 2029 RSV High Risk: (Elde rly (60+) or Population) (1 - 1-dose 75+ series) RSV High Risk: (Elderly (60+) or Population) (1 - 1-dose 75+ series) [facility] Start: 03-20-2025 Medicare Annual Well ness Visit Medicare Annual Wellness Visit (AWV) [facility] Start: 11-23-2024 End: 11-23-2024 Admission to same day surgery center 11/23/2024 7:20 AM EST - 11/23/2024 9:40 AM EST Surgery [facility] [address] [place] [id number] Facundo Woods MD [address] [facility] Radha [address] [address] APPENDECTOMY ROBOTIC XI [facility] Comment on above: APPENDECTOMY ROBOTIC XI Start: 11-23-2024 End: 11-23-2024 Laparoscopic appendectomy APPENDECTOMY ROBOTIC XI Perforated appendicitis 11/23/2024 7:20 AM EST [facility] Main OR Start: 11-23-2024 Subsequent hospital visit by physician [facility] Start: 11-14-2024 End: 11-14-2024 Patient encounter procedure 11/14/2024 8:30 AM EST Office Visit [facility] Preadmission Testing [address] [place] [id number] Discharge Disposition: Home [facility] Preadmission Testing Start: 11-05-2024 End: 11-05-2024 Patient encounter procedure 11/05/2024 9:45 AM EST Office Visit [facility] [address] [facility] [address] [place] [id number] Facundo Woods MD [address] Jonny Garcia [address] [address] [facility] Start: 07-01-2024 COVID-19 Vaccine ( season) COVID-19 Vaccine ( season) [facility] Start: 07-01-2024 Influenza vaccination Influenza Vacc ine (#1) [facility] Start: 12-31-2021 Pneumococcal vaccination Pneum ococcal Vaccine (2 of 2 - PCV) [facility] Start: 12-31-2021 Pneumococcal Vaccine : 65+ Years (2 of 2 - PCV) Pneumococcal Vaccine: 65+ Years (2 of 2 - PCV) [facility] Start: 2019 Fall risk assessment Falls Risk Asse ssment [facility] Start: 07-23-2018 Screening for malign ant neoplasm of colon [facility] Start: 2004 Administration of he rpes zoster vaccine Zoster Vaccines (1 of 2) [facility] Start: 2004 Pneumococcal Vaccine : Age 50+ (1 of 1 - PCV) Pneumococcal Vaccine: Age 50+ (1 of 1 - PCV) [facility] Start: 2004 Pneumococcal Vaccine : Age 65+ (1 of 1 - PCV) Pneumococcal Vaccine: Age 65+ (1 of 1 - PCV) [facility] Start: 2004 Screening for malign ant neoplasm of colon Flexible sigmoidoscopy [facility] Start: 2004 Zoster Vaccines (1 of 2) Zoste r Vaccines (1 of 2) [facility] Start: 1972 Diabetes mellitus screening Diabetes Screening [facility] Start: 1972 Hepatitis C screening Hepatitis C Sc mónica [facility] Start: 1966 Depression screening using PHQ-9 (Patient Health Questionnaire 9) score Depression Screening/Follow-Up (PHQ-2/9) [facility] Start: 1957 Medicare Wellness Visit Medicare Wel lness Visit [facility] Start: 1954 Lipid panel Lipid Panel [facility] Start: 1954 Prostate specific antigen measurement PSA Level [facility] Start: 1954 Screening for malign ant neoplasm of colon [facility] Bacteria identified in Blood by Culture [facility] Work Phone: End: 10-13-2024 Basic metabolic 2000 panel - Serum or Plasma Basic Metabolic Panel Lab Routine Morning draw (Lab) for 1 Occurrences starting 10/13/2024 until 10/13/2024 [facility] Work Phone: Comment on above: Morning draw (Lab) f or 1 Occurrences starting 10/13/2024 until 10/13/2024 Body Fluid Aerobic & Anaerobic Culture Body Fluid Aerobic & Anaerobic Culture Microbiology Routine 10/18/2024 10:48 AM [facility] Work Phone: End: 10-13-2024 CBC panel - Blood by Automated count CBC Lab Routine Morning draw (Lab) for 1 Occurrences starting 10/13/2024 until 10/13/2024 [facility] Work Phone: Comment on above: Morning draw (Lab) f or 1 Occurrences starting 10/13/2024 until 10/13/2024 End: 10-18-2024 CBC W Auto Differential panel - Blood CBC and Auto Differential Lab Routine Morning draw (Lab) for 1 Occurrences starting 10/18/2024 until 10/18/2024 [facility] Work Phone: Comment on above: Morning draw (Lab) f or 1 Occurrences starting 10/18/2024 until 10/18/2024 End: 10-18-2024 Comprehensive metabolic 2000 panel - Serum or Plasma Comprehensive Metabolic Panel Lab Routine Morning draw (Lab) for 1 Occurrences starting 10/18/2024 until 10/18/2024 [facility] Work Phone: Comment on above: Morning draw (Lab) f or 1 Occurrences starting 10/18/2024 until 10/18/2024 End: 10-17-2024 CT Abdomen WO contrast [facility] Work Phone: Comment on above: Once for 1 Occurrenc es starting 10/17/2024 until 10/17/2024 End: 10-12-2024 CT Guidance for drainage of abscess and placement of drainage catheter of Unspecified body region CT guided abscess fluid collection drainage visceral Perq Imaging STAT Once for 1 Occurrences starting 10/12/2024 until 10/12/2024 [facility] Work Phone: Comment on above: Once for 1 Occurrenc es starting 10/12/2024 until 10/12/2024 Electrocardiogram, 12-lead PRN ACS symptoms Electrocardiogram, 12-lead PRN ACS symptoms ECG Routine As needed until discontinued starting 10/11/2024 [facility] Service Area Work Phone: Comment on above: As needed until disc ontinued starting 10/11/2024 Electrocardiogram, 12-lead PRN ACS symptoms Electrocardiogram, 12-lead PRN ACS symptoms ECG Routine As needed until discontinued starting 10/11/2024 [facility] Work Phone: Comment on above: As needed until disc ontinued starting 10/11/2024 End: 10-11-2024 Extra Urine Gutiérrez Tube Extra Urine Gutiérrez Tube Lab Timed Once for 1 Occurrences starting 10/11/2024 until 10/11/2024 [facility] Work Phone: Comment on above: Once for 1 Occurrenc es starting 10/11/2024 until 10/11/2024 End: 10-12-2024 Extra Urine Gutiérrez Tube Extra Urine Gutiérrez Tube Lab Timed Once for 1 Occurrences starting 10/12/2024 until 10/12/2024 [facility] Work Phone: Comment on above: Once for 1 Occurrenc es starting 10/12/2024 until 10/12/2024 End: 10-13-2024 Extra Urine Gutiérrez Tube Extra Urine Gutiérrez Tube Lab Routine Once for 1 Occurrences starting 10/13/2024 until 10/13/2024 [facility] Work Phone: Comment on above: Once for 1 Occurrenc es starting 10/13/2024 until 10/13/2024 Laparoscopic appendectomy APPENDECTOMY ROBOTIC XI Perforated appendicitis [facility] Main OR Procedure on tissue specimen [facility] Work Phone: Comment on above: Release Upon Orderin g for 1 Occurrences starting 11/23/2024, 1 completed End: 10-12-2024 Sodium [Moles/volume] in Urine Sodium, Urine Random Lab Routine Once (Lab) for 1 Occurrences starting 10/12/2024 until 10/12/2024 [facility] Work Phone: Comment on above: Once (Lab) for 1 Occ urrences starting 10/12/2024 until 10/12/2024 End: 10-11-2024 Urinalysis complete W Reflex Culture panel - Urine Urinalysis with Reflex Culture and Microscopic Lab STAT STAT (Lab) for 1 Occurrences starting 10/11/2024 until 10/11/2024 [facility] Service Area Work Phone: Comment on above: STAT (Lab) for 1 Occ urrences starting 10/11/2024 until 10/11/2024 End: 10-12-2024 Urinalysis complete W Reflex Culture panel - Urine [facility] Service Area Work Phone: Comment on above: Once (Lab) for 1 Occ urrences starting 10/12/2024 until 10/12/2024 Once for 1 Occurrenc es starting 10/12/2024 until 10/12/2024 Urinalysis complete W Reflex Culture panel - Urine Urinalysis with Reflex Culture and Microscopic Lab STAT 10/11/2024 2:39 AM EST [facility] Work Phone: End: 10-13-2024 Urinalysis complete W Reflex Culture panel - Urine [facility] Work Phone: Comment on above: Once (Lab) for 1 Occ urrences starting 10/13/2024 until 10/13/2024 Payers Date Payer Category Payer Self-pay 2023 Medicare (Managed Care) [employer] [id number] 2023 Medicare HMO LARRY MEDIBLUE ESSENTIAL/PLUS/CONNECT/SN P HMO [id number] 2023 Medicare [id number] 1955 Unknown [id number] 1955 Unknown [id number] 1955 Unknown [id number] 1955 Unknown [id number] 903 1954 Unknown [id number] 903 1955 Unknown [id number] Self-pay SELF PAY INSURANCE [id number] Unknown [facility] [id number] Unknown [id number] Social History Date Type Detail Facility Start: 01-18-2019 End: 10-11-2024 Tobacco smoking status NHIS Never smoked tobacco [facility] Start: 10-11-2024 End: 10-17-2024 Tobacco use and exposure Smokeless tobacco non-user [facility] Work Phone: Start: 10-11-2024 End: 10-17-2024 History of Social function [facility] Start: 10-11-2024 End: 10-17-2024 [facility] [employer] [facility] Has the [employer], [employer], or water company threatened to shut off services in your home in past 12Mo No [facility] How often to you hav e a drink containing alcohol? 2-3 time sa week [facility] Work Phone: How many standard drinks containing alcohol do you have on a typical day? Patient does not drink [facility] Work Phone: How often do you hav e 6 or more drinks on 1 occasion? Never [facility] Work Phone: (I/We) worried delaney fritz (my/our) food would run out before (I/we) got money to buy more. Never true [facility] Work Phone: Start: 1955 Sex assigned at Not on file [facility] Work Phone: Start: 10-01-2024 End: 10-11-2024 Exposure to SARS-CoV-2 (event) Not sure [facility] Work Phone: Start: 11-23-2024 End: 12-12-2024 Alcoholic beverage intake Current drinker of alcohol (finding) [facility] Start: 11-14-2024 Alcohol Comment MAYBE 6 BEERS A WEEK, NOT EVERY WEEK [facility] Start: 01-17-2019 Tobacco Use Tobacco Use [facility] Start: 1955 Sex Assigned At Male [facility] Clinical Notes 10-11-2024 to 12-12-2024 Facundo Woods MD - 12/12/2024 8:07 AM Christian Ulloa CNP - 11/24/2024 2:25 PM ESTDischarge InstructionsFacundo Woods MD - 11/24/2024 6:43 AM ESTDischarge Instructions Note Date & Type Note Facility 12-12-2024 Note Patient presents for follow up s/p robotic appendectomy with lysis of adhesions and drainage of abscess on 11/23/24. Doing well without major issues. Tolerating diet, pain free, bowels working. Incisions C/D/I. All iftikhar removed Abdomen soft, NTND Activity as tolerated. Follow up prn. AUTHENTICATED BY FACUNDO WOODS, ON 12/12/2024 08:11:20 [facility] 12-12-2024 History of Present illness Narrative Patient presents for follow up s/p robotic appendectomy with lysis of adhesions and drainage of abscess on 11/23/24. Doing well without major issues. Tolerating diet, pain free, bowels working. Incisions C/D/I. All iftikhar removed Abdomen soft, NTND Activity as tolerated. Follow up prn. documented in this encounter [facility] 11-24-2024 Note DISCHARGE SUMMARY Patient: Sofya Cabrera Date of : 1955 Site: [facility] Provider: Bashir Cleary CNP Admit Date: 11/23/2024 Discharge Date/Time: 11/24/24 Midday Disposition: Home Clinical Summary Hospital Course: Sofya Cabrera is a 68 y.o. male patient of Bashir Cleary CNP presenting for robotic appendectomy and drainage of abscess, as well as lysis of adhesions. He is doing well postoperatively today. He is tolerating a diet, having bowel function. His pain is controlled. We will proceed with discharge today and have him follow up with Dr. Woods in the office in 2 weeks for staple removal. Surgeries: 11/23/24 APPENDECTOMY ROBOTIC XI Consults: No orders of the defined types were placed in this encounter. Allergies: Patient has no known allergies. Discharge Diet: Resume home diet Condition: Good Discharge Medications: Discharge Medications New Medications Details amoxicillin-clavulanate 875-125 mg per tablet Commonly known as: AUGMENTIN Take 1 (one) tablet by mouth 2 (two) times a day for 5 days . Quantity: 10 tablet oxyCODONE 5 MG immediate release tablet Commonly known as: ROXICODONE Take 1 (one) tablet (5 mg total) by mouth every 6 (six) hours as needed for pain (Days supply per fill: 5) . Quantity: 16 tablet Medications To Continue Details hydroCHLOROthiazide 12.5 MG tablet Take 1 (one) tablet (12.5 mg total) by mouth daily AM . lisinopriL 40 MG tablet Commonly known as: PRINIVIL,ZESTRIL Take 1 (one) tablet (40 mg total) by mouth daily with lunch Start: 10/20/24. Quantity: 30 tablet Physician(s) Family Provider: Bashir Cleary CNP, Address: [address] [place] / [place]* Follow Up: Facundo Woods MD [address] [place], [place] [id number] Schedule an appointment as soon as possible for a visit in 2 week(s) Patient instructions, including activity, were given to the patient/family at discharge. Please see the After Visit Summary in the electronic medical record for details. Time spent on discharge: < 30 minutes Completed by: Christian Tse CNP on 11/24/24, 2:25 PM AUTHENTICATED BY CHRISTIAN TSE, ON 11/24/2024 14:27:18 [facility] 11-24-2024 Hospital course Narrative DISCHARGE SUMMARY Patient: Sofya Cabrera Date of : 1955 Site: [facility] Family Provider: Bashir Cleary CNP Admit Date: 11/23/2024 Discharge Date/Time: 11/24/24 Midday Disposition: Home Clinical Summary Hospital Course: Sofya Cabrera is a 68 y.o. male patient of Bashir Cleary CNP presenting for robotic appendectomy and drainage of abscess, as well as lysis of adhesions. He is doing well postoperatively today. He is tolerating a diet, having bowel function. His pain is controlled. We will proceed with discharge today and have him follow up with Dr. Woods in the office in 2 weeks for staple removal. Surgeries: 11/23/24 APPENDECTOMY ROBOTIC XI Consults: No orders of the defined types were placed in this encounter. Allergies: Patient has no known allergies. Discharge Diet: Resume home diet Condition: Good Discharge Medications: Discharge Medications New Medications Details amoxicillin-clavulanate 875-125 mg per tablet Commonly known as: AUGMENTIN Take 1 (one) tablet by mouth 2 (two) times a day for 5 days . Quantity: 10 tablet oxyCODONE 5 MG immediate release tablet Commonly known as: ROXICODONE Take 1 (one) tablet (5 mg total) by mouth every 6 (six) hours as needed for pain (Days supply per fill: 5) . Quantity: 16 tablet Medications To Continue Details hydroCHLOROthiazide 12.5 MG tablet Take 1 (one) tablet (12.5 mg total) by mouth daily AM . lisinopriL 40 MG tablet Commonly known as: PRINIVIL,ZESTRIL Take 1 (one) tablet (40 mg total) by mouth daily with lunch Start: 10/20/24. Quantity: 30 tablet Physician(s) Family Provider: Bashir Cleary CNP, Address: [address] [place] / [place]* Follow Up: Facundo Woods MD [address] [place] [id number] Schedule an appointment as soon as possible for a visit in 2 week(s) Patient instructions, including activity, were given to the patient/family at discharge. Please see the After Visit Summary in the electronic medical record for details. Time spent on discharge: < 30 minutes Completed by: Christian Tse CNP on 11/24/24, 2:25 PM documented in this encounter [facility] 11-24-2024 Hospital Discharge instructions Christian Tse CNP - 11/24/2024 12:32 PM EST LAPAROSCOPIC APPENDECTOMY (Appendix Removal) Your appendectomy was done as a laparoscopic surgery. That means it was done with only small cuts. These cuts are called incisions. The doctor put a lighted tube, or scope, and other surgical tools through the cuts in your abdomen. The doctor was able to see your organs with the scope. The doctor removed the appendix. The cuts heal quickly, and the scars usually fade over time. To heal properly: Do not do any rough or demanding activity until follow up with the Outpatient Trauma/[facility] office. We suggest you: Do not lift anything over 5 pounds (the weight of a gallon of milk) Do not participate in any sports Protect yourself from getting hit in the abdomen Do not drive or return to work At your Outpatient Trauma office appointment, you will get specific instructions on when you may resume these activities. Dressing: Your incisions have been closed with iftikhar or sutures as determined by your surgeon. Dressings will cover your incisions. Keep your dressings clean and dry for 48 hours after surgery. The iftikhar or sutures will be removed at your Outpatient Trauma office follow up appointment. You may shower. If you have steri-strips (thin strips of white tape), leave them in place until your appointment with the Outpatient Trauma office. If you have a Topical Skin Adhesive (or glue), this would naturally come off your skin in 5-10 days. Do not rub, scratch, or pick at the glue. Do not apply any medications on any products to wound while the glue is in place. You may shower only, after 24 hrs. No bathing, immersion or swimming for at least 10 days. You will have a post-operative visit with a business banking representative of the surgery team. At that appointment you will receive instructions on returning to work. Call the Outpatient Trauma/ [facility] office [phone] for advice (Tuesday-Tuesday, 8am to 4pm) or proceed to the nearest Emergency Department if: You feel weak, lightheaded, or dizzy when you sit up or stand. Develop fever, chills, nausea, or vomiting You have increased abdominal or chest pain Your skin is pale, cool and/or clammy You have a rapid increase in your heart rate while resting. documented in this encounter [facility] 11-24-2024 Note POD 1 robotic append ectomy with drainage of abscess and lysis of adhesions. Doing well without issues. No nausea. Pain controlled. Tolerating full liquids, passing gas. AFVS Abdomen soft, slightly distended, ATTP - regular diet today - home later today if tolerating - follow up in office in 2 weeks for staple removal AUTHENTICATED BY FACUNDO WOODS, ON 11/24/2024 06:44:53 [facility] 11-24-2024 History of Present illness Narrative POD 1 robotic appendectomy with drainage of abscess and lysis of adhesions. Doing well without issues. No nausea. Pain controlled. Tolerating full liquids, passing gas. AFVS Abdomen soft, slightly distended, ATTP - regular diet today - home later today if tolerating - follow up in office in 2 weeks for staple removal POD 0 robotic appendectomy drainage of intra-abdominal abscess and lysis of adhesions. Patient doing well without issues. Pain controlled, tolerating po intake, no nausea. AFVSS Abdomen soft, aTTP - ADAT - post op antibiotics, will plan to send on a po course of antibiotics upon discharge - likely home tomorrow if doing well documented in this encounter [facility] 11-23-2024 Note POD 0 robotic append ectomy drainage of intra-abdominal abscess and lysis of adhesions. Patient doing well without issues. Pain controlled, tolerating po intake, no nausea. AFVSS Abdomen soft, aTTP - ADAT - post op antibiotics, will plan to send on a po course of antibiotics upon discharge - likely home tomorrow if doing well AUTHENTICATED BY FACUNDO WOODS, ON 11/23/2024 16:40:39 [facility] 11-23-2024 Plan of care note Problem: Actual or potential alteration in health Goal: Absence of healthcare acquired conditions Outcome: Partially Met Goal: Knowledge of Interdisciplinary Plan of Care Outcome: Partially Met Goal: Knowledge of Enviroment Outcome: Partially Met [facility] 11-23-2024 Miscellaneous Notes Problem: Actual or potential alteration in health Goal: Absence of healthcare acquired conditions Outcome: Partially Met Goal: Knowledge of Interdisciplinary Plan of Care Outcome: Partially Met Goal: Knowledge of Enviroment Outcome: Partially Met SOFYA CABRERA [id number] N [id number] 1955 DATE 11/23/2024 OPERATIVE REPORT SURGEON FACUNDO WOODS MD PREOPERATIVE DIAGNOSIS History of perforated appendicitis, status post CT-guided drain placement. POSTOPERATIVE DIAGNOSIS History of perforated appendicitis, status post CT-guided drain placement. PROCEDURE Robotic appendectomy, lysis of adhesions, and drainage of intraabdominal abscess. ANESTHESIA General endotracheal. ESTIMATED BLOOD LOSS Minimal. SPECIMENS Appendix. COMPLICATIONS None apparent. HISTORY OF PRESENT ILLNESS The patient is a 68-year-old male. Recently he had a perforated appendicitis. He was initially admitted at [facility] October 11 through October 17 with perforated appendicitis. He had an elevated leukocytosis, so he underwent CT that demonstrated an abscess. He was transferred here for interventional radiology and underwent CT-guided drain placement on October 18. He was able to be discharged, had resolution of symptoms. The drain was removed in the office and we discussed interval appendectomy. We discussed details of the procedure, rationale, potential risks, benefits, and alternatives, and he is agreeable to proceed. DESCRIPTION OF PROCEDURE Patient was brought to the operating room. General endotracheal anesthesia was induced. SCDs were on and functioning. He received preoperative antibiotics. Bilateral arms were tucked. Rios catheter was placed by the nursing staff with return of clear yellow urine. The abdomen was prepped and draped in usual sterile manner. Time-out was performed to confirm correct patient and procedure. We anesthetized skin and subcutaneous tissue in the left subcostal position using 0.25% Marcaine. Transverse incision was made using a #11 blade scalpel. Direct entry into the peritoneal cavity was obtained using the [employer] obturator. Abdomen was insufflated with carbon dioxide. Visual inspection confirmed no injury from the entrance. He has significant adhesions to the anterior abdominal wall in the lower abdomen. I placed 2 additional robotic trocars in a line on the left side of the abdomen under direct visualization after instilling local anesthetic. I then began teasing adhesions down from the anterior abdominal wall in the left lower quadrant to place my 4th robotic trocar. When this was completed, I turned the patient into steep Trendelenburg position. Right side was rotated up. The robot was then docked. I spent the next hour performing adhesiolysis as there were multiple loops of bowel adhesed to the anterior abdominal wall as well as omentum covering the right lower quadrant and appendix. After an hour of adhesiolysis, I was able to visualize the base of the appendix. It was elevated and I took down the mesoappendix using the fenestrated bipolar pace. The base of the appendix was then transected using a robotic JUSTINE stapler 45 mm with a vascular load. Staple line was intact upon completion. Specimen was then placed in the upper abdomen. In between multiple loops of small bowel, there were several small fluid collections that were evacuated using suction ob nurse. Lysis of adhesions was performed sharply as well as using blunt dissection with the suction ob nurse. When this was all completed, I was able to follow the small bowel from the terminal ileum and ileocecal valve proximally, taking all of the interloop adhesions down using sharp dissection. I continued proximally, dissecting the omentum off the small bowel until it was all free. When this was completed, specimen was placed within an EndoCatch bag. The robot was then undocked. The abdomen was then desufflated. The specimen was removed from the abdominal cavity. The 12 mm trocar fascial site was closed using a 0 Vicryl in a [id number] fashion. All the remainder of the local anesthetic was injected. The surgical sites were then closed using skin iftikhar. Counts were correct x2 prior to completion of the procedure. He tolerated the procedure well without any apparent complications, able to be extubated, transferred to the recovery room in stable condition. FACUNDO WOODS MD D 11/23/2024 09:57 [id number] T 11/23/2024 10:33 REJI/KRISSY cc: BASHIR CLEARY CNP Brief Post Operative Note Patient Name: Sofya Cabrera : 1955 (68 y.o.) Date of Service: 11/23/2024 CSN: [id number] Procedure(s): APPENDECTOMY ROBOTIC XI Pre-Operative Diagnoses: * Perforated appendicitis [K35.32] Post-Operative Diagnoses: * Same as Pre-Op Diagnosis * Perforated appendicitis [K35.32] Surgeons and Role: * Facundo Woods MD - Primary Anesthesiologist: Sofya Escobar MD Anesthesiologist Wool Grader: Dmitri Leong AA; Tyrone Pena AA Bridge Painter Helper: Raghu Vilchis RN Bridge Painter Helper Relief: [place] Augustine RN Scrub Person: Anjali Lara RN Operative findings: see op note Intra and immediate post-operative complications: none Type of anesthesia used: General Estimated blood loss: 30 mL Estimated urine output: Refer to surgical log Specimen(s): ID Type Source Tests Collected by Time Destination A : Tissue Appendix TISSUE EXAM Facundo Woods MD 11/23/2024 0905 Implant(s): * No implants in log * Drain(s): Urethral Catheter Double-lumen;Latex 16 Fr. (Active) Wound(s): Wound 11/23/24 4 Surgical Wound Abdomen LUQ (Active) Wound Closure Sutures;Surgical Adhesive 11/05/24 0004 Facundo Woods MD 11/23/2024 9:31 AM documented in this encounter [facility] 11-23-2024 Procedure note SOFYA CABRERA [facility] [id number] N [id number] 1955 DATE 11/23/2024 OPERATIVE REPORT SURGEON FACUNDO WOODS MD PREOPERATIVE DIAGNOSIS History of perforated appendicitis, status post CT-guided drain placement. POSTOPERATIVE DIAGNOSIS History of perforated appendicitis, status post CT-guided drain placement. PROCEDURE Robotic appendectomy, lysis of adhesions, and drainage of intraabdominal abscess. ANESTHESIA General endotracheal. ESTIMATED BLOOD LOSS Minimal. SPECIMENS Appendix. COMPLICATIONS None apparent. HISTORY OF PRESENT ILLNESS The patient is a 68-year-old male. Recently he had a perforated appendicitis. He was initially admitted at [facility] October 11 through October 17 with perforated appendicitis. He had an elevated leukocytosis, so he underwent CT that demonstrated an abscess. He was transferred here for interventional radiology and underwent CT-guided drain placement on October 18. He was able to be discharged, had resolution of symptoms. The drain was removed in the office and we discussed interval appendectomy. We discussed details of the procedure, rationale, potential risks, benefits, and alternatives, and he is agreeable to proceed. DESCRIPTION OF PROCEDURE Patient was brought to the operating room. General endotracheal anesthesia was induced. SCDs were on and functioning. He received preoperative antibiotics. Bilateral arms were tucked. Rios catheter was placed by the nursing staff with return of clear yellow urine. The abdomen was prepped and draped in usual sterile manner. Time-out was performed to confirm correct patient and procedure. We anesthetized skin and subcutaneous tissue in the left subcostal position using 0.25% Marcaine. Transverse incision was made using a #11 blade scalpel. Direct entry into the peritoneal cavity was obtained using the [employer] obturator. Abdomen was insufflated with carbon dioxide. Visual inspection confirmed no injury from the entrance. He has significant adhesions to the anterior abdominal wall in the lower abdomen. I placed 2 additional robotic trocars in a line on the left side of the abdomen under direct visualization after instilling local anesthetic. I then began teasing adhesions down from the anterior abdominal wall in the left lower quadrant to place my 4th robotic trocar. When this was completed, I turned the patient into steep Trendelenburg position. Right side was rotated up. The robot was then docked. I spent the next hour performing adhesiolysis as there were multiple loops of bowel adhesed to the anterior abdominal wall as well as omentum covering the right lower quadrant and appendix. After an hour of adhesiolysis, I was able to visualize the base of the appendix. It was elevated and I took down the mesoappendix using the fenestrated bipolar pace. The base of the appendix was then transected using a robotic JUSTINE stapler 45 mm with a vascular load. Staple line was intact upon completion. Specimen was then placed in the upper abdomen. In between multiple loops of small bowel, there were several small fluid collections that were evacuated using suction ob nurse. Lysis of adhesions was performed sharply as well as using blunt dissection with the suction ob nurse. When this was all completed, I was able to follow the small bowel from the terminal ileum and ileocecal valve proximally, taking all of the interloop adhesions down using sharp dissection. I continued proximally, dissecting the omentum off the small bowel until it was all free. When this was completed, specimen was placed within an EndoCatch bag. The robot was then undocked. The abdomen was then desufflated. The specimen was removed from the abdominal cavity. The 12 mm trocar fascial site was closed using a 0 Vicryl in a xiyoiy-lu-uxhum fashion. All the remainder of the local anesthetic was injected. The surgical sites were then closed using skin iftikhar. Counts were correct x2 prior to completion of the procedure. He tolerated the procedure well without any apparent complications, able to be extubated, transferred to the recovery room in stable condition. FACUNDO WOODS MD D 11/23/2024 09:57 [id number] T 11/23/2024 10:33 REJI/KRISSY cc: BASHIR CLEARY CNP [facility] 11-23-2024 Procedure note Brief Post Operative Note Patient Name: Sofya Cabrera : 1955 (68 y.o.) Date of Service: 11/23/2024 CSN: [id number] Procedure(s): APPENDECTOMY ROBOTIC XI Pre-Operative Diagnoses: * Perforated appendicitis [K35.32] Post-Operative Diagnoses: * Same as Pre-Op Diagnosis * Perforated appendicitis [K35.32] Surgeons and Role: * Facundo Woods MD - Primary Anesthesiologist: Sofya Escobar MD Anesthesiologist Wool Grader: Dmitri Leong AA; Tyrone Pena AA Bridge Painter Helper: Raghu Vilchis RN Bridge Painter Helper Relief: [place] Augustine RN Scrub Person: Anjali Lara RN Operative findings: see op note Intra and immediate post-operative complications: none Type of anesthesia used: General Estimated blood loss: 30 mL Estimated urine output: Refer to surgical log Specimen(s): ID Type Source Tests Collected by Time Destination A : Tissue Appendix TISSUE EXAM Facundo Woods MD 11/23/2024 0905 Implant(s): * No implants in log * Drain(s): Urethral Catheter Double-lumen;Latex 16 Fr. (Active) Wound(s): Wound 11/23/24 4 Surgical Wound Abdomen LUQ (Active) Wound Closure Sutures;Surgical Adhesive 11/05/24 0004 Facundo Woods MD 11/23/2024 9:31 AM [facility] 11-23-2024 Attending History and physical note INTERVAL HISTORY AND PHYSICAL Patient Name: Sofya Cabrera Admit Date: [id number] MR #: [id number] : 1955 The H&P has been reviewed and the patient has been examined. I concur with the findings of the H&P. There are no significant changes. It is appropriate to proceed with the planned procedure. Facundo Woods MD 11/23/2024 7:25 AM Source Note - Facundo Woods MD - 11/05/2024 9:26 AM EST Subjective Patient ID: Sofya Cabrera is a 68 y.o. male. HPI Patient presents for follow up sp hospitalization for perforated appendicitis. The patient was initially admitted at [facility] 10/11 through 10/17 and managed with antibiotics but his WBC increased and so they repeated his CT and found an abscess. He was transferred for IR intervention and underwent CT drain placement 10/18. The patient did well afterwards and was able to discharge to home. He has had minimal serous drainage from the drain since. He is feeling well with resolution of abdominal pain and tolerating diet with normal bowel function. He now presents for possible drain removal and to schedule interval appendectomy. Past Medical History: Diagnosis Date Hypertension Past Surgical History: Procedure Laterality Date CT ABSCESS DRAINAGE PERITONEAL 10/18/2024 CT ABSCESS DRAINAGE PERITONEAL 10/18/2024 CT has a current medication list which includes the following prescription(s): lisinopril. Allergies: Patient has no known allergies. Social History Socioeconomic History Marital status: Tobacco Use Smoking status: Never Smokeless tobacco: Never Vaping Use Vaping status: Never Used Social Drivers of Health Financial Resource Strain: Low Risk (10/11/2024) Received from [facility] Overall Financial Resource Strain (CARDIA) Difficulty of Paying Living Expenses: Not hard at all Food Insecurity: No Food Insecurity (10/17/2024) Hunger Vital Sign Worried About Running Out of Food in the Last Year: Never true Ran Out of Food in the Last Year: Never true Transportation Needs: No Transportation Needs (10/17/2024) PRAPARE - Transportation Lack of Transportation (Medical): No Lack of Transportation (Non-Medical): No Housing Stability: Low Risk (10/17/2024) Housing Stability Vital Sign Unable to Pay for Housing in the Last Year: No Number of Times Moved in the Last Year: 1 Homeless in the Last Year: No History reviewed. No pertinent family history. Review of Systems Constitutional: Negative for activity change, appetite change, chills, fatigue, fever and unexpected weight change. HENT: Negative for hearing loss, nosebleeds and trouble swallowing. Eyes: Negative for visual disturbance. Respiratory: Negative for cough, shortness of breath, wheezing and stridor. Cardiovascular: Negative for chest pain and leg swelling. Gastrointestinal: Negative for abdominal distention, abdominal pain, blood in stool, constipation, diarrhea, nausea and vomiting. Endocrine: Negative for cold intolerance and heat intolerance. Genitourinary: Negative for difficulty urinating, frequency, hematuria and urgency. Musculoskeletal: Negative for arthralgias. Skin: Negative for rash and wound. Allergic/Immunologic: Negative for environmental allergies and food allergies. Neurological: Negative for seizures, syncope, weakness and numbness. Hematological: Negative for adenopathy. Does not bruise/bleed easily. Psychiatric/Behavioral: Negative for agitation and dysphoric mood. Objective Physical Exam Vitals reviewed. Constitutional: General: He is not in acute distress. Appearance: Normal appearance. He is well-developed. He is not diaphoretic. HENT: Head: Normocephalic and atraumatic. Right Ear: External ear normal. Left Ear: External ear normal. Nose: Nose normal. Eyes: Pupils: Pupils are equal, round, and reactive to light. Neck: Thyroid: No thyromegaly. Vascular: No JVD. Trachea: No tracheal deviation. Cardiovascular: Rate and Rhythm: Normal rate and regular rhythm. Heart sounds: Normal heart sounds. Pulmonary: Effort: Pulmonary effort is normal. No respiratory distress. Breath sounds: Normal breath sounds. Abdominal: General: Bowel sounds are normal. There is no distension. Palpations: Abdomen is soft. There is no mass. Tenderness: There is no abdominal tenderness. There is no guarding or rebound. Comments: Drain with serous output. Suture and drain cut and drain removed entirely. Covered with dry gauze. Musculoskeletal: General: Normal range of motion. Cervical back: Normal range of motion. Skin: General: Skin is warm and dry. Neurological: General: No focal deficit present. Mental Status: He is alert. Mental status is at baseline. Cranial Nerves: No cranial nerve deficit. Psychiatric: Behavior: Behavior normal. Assessment/Plan: Diagnoses and all orders for this visit: Perforated appendicitis - Case Request Operating Room: APPENDECTOMY ROBOTIC XI Other orders - Vital signs; Future - Height and weight; Standing - Vital signs; Standing - Surgical site prep Skin; Chlorhexidine Gluconate; Standing - Insert peripheral IV; Standing - lactated Ringers infusion - Intermittent pneumatic compression device Bilat LE; Standing - ceFAZolin (ANCEF) 2,000 mg in sodium chloride 0.9 % (NS) 100 mL IVPB - metroNIDAZOLE (FLAGYL) IVPB 500 mg - Recommended robotic laparoscopic appendectomy possible open possible resection. Discussed details of operation, rationale, R/B/A and the patient agrees to proceed. - Risks including but not limited to: Infections, bleeding, injury to other structures, need for reoperation, . [facility] 11-23-2024 History and physical note INTERVAL HISTORY AND PHYSICAL Patient Name: Sofya Cabrera Admit Date: [id number] MR #: [id number] : 1955 The H&P has been reviewed and the patient has been examined. I concur with the findings of the H&P. There are no significant changes. It is appropriate to proceed with the planned procedure. Facundo Woods MD 11/23/2024 7:25 AM Source Note - Facundo Woods MD - 11/05/2024 9:26 AM EST Subjective Patient ID: Sofya Cabrera is a 68 y.o. male. HPI Patient presents for follow up sp hospitalization for perforated appendicitis. The patient was initially admitted at [facility] 10/11 through 10/17 and managed with antibiotics but his WBC increased and so they repeated his CT and found an abscess. He was transferred for IR intervention and underwent CT drain placement 10/18. The patient did well afterwards and was able to discharge to home. He has had minimal serous drainage from the drain since. He is feeling well with resolution of abdominal pain and tolerating diet with normal bowel function. He now presents for possible drain removal and to schedule interval appendectomy. Past Medical History: Diagnosis Date Hypertension Past Surgical History: Procedure Laterality Date CT ABSCESS DRAINAGE PERITONEAL 10/18/2024 CT ABSCESS DRAINAGE PERITONEAL 10/18/2024 [facility] has a current medication list which includes the following prescription(s): lisinopril. Allergies: Patient has no known allergies. Social History Socioeconomic History Marital status: Tobacco Use Smoking status: Never Smokeless tobacco: Never Vaping Use Vaping status: Never Used [employer] Financial Resource Strain: Low Risk (10/11/2024) Received from [facility] Overall Financial Resource Strain (CARDIA) Difficulty of Paying Living Expenses: Not hard at all Food Insecurity: No Food Insecurity (10/17/2024) Hunger Vital Sign Worried About Running Out of Food in the Last Year: Never true Ran Out of Food in the Last Year: Never true Transportation Needs: No Transportation Needs (10/17/2024) PRAPARE - Transportation Lack of Transportation (Medical): No Lack of Transportation (Non-Medical): No Housing Stability: Low Risk (10/17/2024) Housing Stability Vital Sign Unable to Pay for Housing in the Last Year: No Number of Times Moved in the Last Year: 1 Homeless in the Last Year: No History reviewed. No pertinent family history. Review of Systems Constitutional: Negative for activity change, appetite change, chills, fatigue, fever and unexpected weight change. HENT: Negative for hearing loss, nosebleeds and trouble swallowing. Eyes: Negative for visual disturbance. Respiratory: Negative for cough, shortness of breath, wheezing and stridor. Cardiovascular: Negative for chest pain and leg swelling. Gastrointestinal: Negative for abdominal distention, abdominal pain, blood in stool, constipation, diarrhea, nausea and vomiting. Endocrine: Negative for cold intolerance and heat intolerance. Genitourinary: Negative for difficulty urinating, frequency, hematuria and urgency. Musculoskeletal: Negative for arthralgias. Skin: Negative for rash and wound. Allergic/Immunologic: Negative for environmental allergies and food allergies. Neurological: Negative for seizures, syncope, weakness and numbness. Hematological: Negative for adenopathy. Does not bruise/bleed easily. Psychiatric/Behavioral: Negative for agitation and dysphoric mood. Objective Physical Exam Vitals reviewed. Constitutional: General: He is not in acute distress. Appearance: Normal appearance. He is well-developed. He is not diaphoretic. HENT: Head: Normocephalic and atraumatic. Right Ear: External ear normal. Left Ear: External ear normal. Nose: Nose normal. Eyes: Pupils: Pupils are equal, round, and reactive to light. Neck: Thyroid: No thyromegaly. Vascular: No JVD. Trachea: No tracheal deviation. Cardiovascular: Rate and Rhythm: Normal rate and regular rhythm. Heart sounds: Normal heart sounds. Pulmonary: Effort: Pulmonary effort is normal. No respiratory distress. Breath sounds: Normal breath sounds. Abdominal: General: Bowel sounds are normal. There is no distension. Palpations: Abdomen is soft. There is no mass. Tenderness: There is no abdominal tenderness. There is no guarding or rebound. Comments: Drain with serous output. Suture and drain cut and drain removed entirely. Covered with dry gauze. Musculoskeletal: General: Normal range of motion. Cervical back: Normal range of motion. Skin: General: Skin is warm and dry. Neurological: General: No focal deficit present. Mental Status: He is alert. Mental status is at baseline. Cranial Nerves: No cranial nerve deficit. Psychiatric: Behavior: Behavior normal. Assessment/Plan: Diagnoses and all orders for this visit: Perforated appendicitis - Case Request Operating Room: APPENDECTOMY ROBOTIC XI Other orders - Vital signs; Future - Height and weight; Standing - Vital signs; Standing - Surgical site prep Skin; Chlorhexidine Gluconate; Standing - Insert peripheral IV; Standing - lactated Ringers infusion - Intermittent pneumatic compression device Bilat LE; Standing - ceFAZolin (ANCEF) 2,000 mg in sodium chloride 0.9 % (NS) 100 mL IVPB - metroNIDAZOLE (FLAGYL) IVPB 500 mg - Recommended robotic laparoscopic appendectomy possible open possible resection. Discussed details of operation, rationale, R/B/A and the patient agrees to proceed. - Risks including but not limited to: Infections, bleeding, injury to other structures, need for reoperation, . documented in this encounter [facility] 11-14-2024 Note Pre-Operative H&P Assessment and Plan Perforated appendicitis Scheduled for robotic appendectomy on 11/24/[address] Woods Hypertension Blood pressure well-controlled on current medical therapy Preop examination The patient is scheduled to undergo an intermediate risk surgery under general anesthesia. He has no history of cardiac disease, pulmonary disease, diabetes, renal disease, vascular disease. He denies any cardiac type symptoms and is able to achieve a METS of 4 without difficulty per ACC/AHA guidelines and acceptable cardiac risk. He denies any prior anesthesia related complications. He has no uncontrolled chronic conditions or elevated surgical risk. He is medically stable to proceed with planned surgery. Chief Complaint Patient presents with Pre-operative Medical Risk Stratification History of Present Illness Sofya Cabrera is a 68 yo male presenting for presurgical risk assessment prior to planned robotic appendectomy. He has a history of hypertension; otherwise denies any pertinent medical history. He denies any new or worsening cardiopulmonary complaints today. Please see below regarding status of active medical conditions and assessment and plan regarding details of preoperative medical risk stratification. Past Medical History: Diagnosis Date Hypertension No past medical history pertinent negatives. Past Surgical History: Procedure Laterality Date COLONOSCOPY CT ABSCESS DRAINAGE PERITONEAL 10/18/2024 CT ABSCESS DRAINAGE PERITONEAL 10/18/2024 CT Social History Tobacco Use Smoking status: Never Smokeless tobacco: Never Substance Use Topics Alcohol use: Yes Comment: MAYBE 6 BEERS A WEEK, NOT EVERY WEEK Family History Problem Relation Age of Onset No Known Problems Mother No Known Problems Father No Known Problems Sister Cancer Brother Diabetes Brother Brain cancer Brother Prior to Admission medications taking for visit date 11/14/24 Medication Sig Taking? Discontinued? amoxicillin-clavulanate (AUGMENTIN) 500-125 mg per tablet DONE ON 11/18/24 BID . Yes hydroCHLOROthiazide 12.5 MG tablet Take 1 (one) tablet (12.5 mg total) by mouth daily AM . Yes lisinopriL (PRINIVIL,ZESTRIL) 40 MG tablet Take 1 (one) tablet (40 mg total) by mouth daily with lunch Start: 10/20/24. Patient taking differently: Take 1 (one) tablet (40 mg total) by mouth daily with lunch AM . Yes No Known Allergies Review of Systems Constitution: (negative) Respiratory: (negative) Cardiovascular: (negative) Gastrointestinal: - CT drain Genitourinary: (negative) Physical Exam BP 108/70 Pulse 68 Ht 5' 8 Wt 84.8 kg (187 lb) SpO2 98% BMI 28.43 kg/m Constitutional: He is oriented to person, place, and time. He appears well developed and well-nourished. Skin: Skin is warm, dry and intact. Neck: Normal range of motion. Cardiovascular: Normal rate and regular rhythm. Pulmonary/Chest: Effort normal and breath sounds normal. Musculoskeletal: Normal range of motion. He exhibits no edema or tenderness. Neurological: He is alert and oriented to person, place, and time. Psychiatric: He has a normal mood and affect. His behavior is normal. Cognition and memory are normal. Data Preprocedure Sleep Apnea Assessment - No Risk (0/3) Sleep Apnea in the patient's Active Problem List or Medical History: no 1. History of apparent airway obstruction during sleep: (1 point for this category) Do you snore frequently, or snore loud enough to be heard through a closed door?: no Do you awaken from sleep with a choking sensation or have periods during sleep when someone has observed you pausing between breaths?: no 2. Somnolence of the patient: (1 point for this category) Do you find yourself frequently sleepy despite adequate hours of sleep the night before?: no Do you fall asleep easily while: watching TV, reading, riding in or driving a car?: no 3. Predisposing physician characteristics: (1 point for this category, 2 points if the BMI >= 40) BMI (Calculated): 28.4 Neck Circumference (inches): 16 inches AUTHENTICATED BY VERONICA MAN, ON 11/14/2024 09:08:22 [facility] 11-05-2024 Note Subjective Patient ID: Sofya Cabrera is a 68 y.o. male. HPI Patient presents for follow up sp hospitalization for perforated appendicitis. The patient was initially admitted at [facility] 10/11 through 10/17 and managed with antibiotics but his WBC increased and so they repeated his CT and found an abscess. He was transferred for IR intervention and underwent CT drain placement 10/18. The patient did well afterwards and was able to discharge to home. He has had minimal serous drainage from the drain since. He is feeling well with resolution of abdominal pain and tolerating diet with normal bowel function. He now presents for possible drain removal and to schedule interval appendectomy. Past Medical History: Diagnosis Date Hypertension Past Surgical History: Procedure Laterality Date CT ABSCESS DRAINAGE PERITONEAL 10/18/2024 CT ABSCESS DRAINAGE PERITONEAL 10/18/2024 CT has a current medication list which includes the following prescription(s): lisinopril. Allergies: Patient has no known allergies. Social History Socioeconomic History Marital status: Tobacco Use Smoking status: Never Smokeless tobacco: Never Vaping Use Vaping status: Never Used Social Drivers of Health Financial Resource Strain: Low Risk (10/11/2024) Received from [facility] Overall Financial Resource Strain (CARDIA) Difficulty of Paying Living Expenses: Not hard at all Food Insecurity: No Food Insecurity (10/17/2024) Hunger Vital Sign Worried About Running Out of Food in the Last Year: Never true Ran Out of Food in the Last Year: Never true Transportation Needs: No Transportation Needs (10/17/2024) PRAPARE - Transportation Lack of Transportation (Medical): No Lack of Transportation (Non-Medical): No Housing Stability: Low Risk (10/17/2024) Housing Stability Vital Sign Unable to Pay for Housing in the Last Year: No Number of Times Moved in the Last Year: 1 Homeless in the Last Year: No History reviewed. No pertinent family history. Review of Systems Constitutional: Negative for activity change, appetite change, chills, fatigue, fever and unexpected weight change. HENT: Negative for hearing loss, nosebleeds and trouble swallowing. Eyes: Negative for visual disturbance. Respiratory: Negative for cough, shortness of breath, wheezing and stridor. Cardiovascular: Negative for chest pain and leg swelling. Gastrointestinal: Negative for abdominal distention, abdominal pain, blood in stool, constipation, diarrhea, nausea and vomiting. Endocrine: Negative for cold intolerance and heat intolerance. Genitourinary: Negative for difficulty urinating, frequency, hematuria and urgency. Musculoskeletal: Negative for arthralgias. Skin: Negative for rash and wound. Allergic/Immunologic: Negative for environmental allergies and food allergies. Neurological: Negative for seizures, syncope, weakness and numbness. Hematological: Negative for adenopathy. Does not bruise/bleed easily. Psychiatric/Behavioral: Negative for agitation and dysphoric mood. Objective Physical Exam Vitals reviewed. Constitutional: General: He is not in acute distress. Appearance: Normal appearance. He is well-developed. He is not diaphoretic. HENT: Head: Normocephalic and atraumatic. Right Ear: External ear normal. Left Ear: External ear normal. Nose: Nose normal. Eyes: Pupils: Pupils are equal, round, and reactive to light. Neck: Thyroid: No thyromegaly. Vascular: No JVD. Trachea: No tracheal deviation. Cardiovascular: Rate and Rhythm: Normal rate and regular rhythm. Heart sounds: Normal heart sounds. Pulmonary: Effort: Pulmonary effort is normal. No respiratory distress. Breath sounds: Normal breath sounds. Abdominal: General: Bowel sounds are normal. There is no distension. Palpations: Abdomen is soft. There is no mass. Tenderness: There is no abdominal tenderness. There is no guarding or rebound. Comments: Drain with serous output. Suture and drain cut and drain removed entirely. Covered with dry gauze. Musculoskeletal: General: Normal range of motion. Cervical back: Normal range of motion. Skin: General: Skin is warm and dry. Neurological: General: No focal deficit present. Mental Status: He is alert. Mental status is at baseline. Cranial Nerves: No cranial nerve deficit. Psychiatric: Behavior: Behavior normal. Assessment/Plan: Diagnoses and all orders for this visit: Perforated appendicitis - Case Request Operating Room: APPENDECTOMY ROBOTIC XI Other orders - Vital signs; Future - Height and weight; Standing - Vital signs; Standing - Surgical site prep Skin; Chlorhexidine Gluconate; Standing - Insert peripheral IV; Standing - lactated Ringers infusion - Intermittent pneumatic compression device Bilat LE; Standing - ceFAZolin (ANCEF) 2,000 mg in sodium chloride 0.9 % (NS) 100 mL IVPB - metroNIDAZOLE (FLAGYL (more content not included)... [facility] 11-05-2024 History of Present illness Narrative Subjective Patient ID: Sofya Cabrera is a 68 y.o. male. HPI Patient presents for follow up sp hospitalization for perforated appendicitis. The patient was initially admitted at [facility] 10/11 through 10/17 and managed with antibiotics but his WBC increased and so they repeated his CT and found an abscess. He was transferred for IR intervention and underwent CT drain placement 10/18. The patient did well afterwards and was able to discharge to home. He has had minimal serous drainage from the drain since. He is feeling well with resolution of abdominal pain and tolerating diet with normal bowel function. He now presents for possible drain removal and to schedule interval appendectomy. Past Medical History: Diagnosis Date Hypertension Past Surgical History: Procedure Laterality Date CT ABSCESS DRAINAGE PERITONEAL 10/18/2024 CT ABSCESS DRAINAGE PERITONEAL 10/18/2024 CT has a current medication list which includes the following prescription(s): lisinopril. Allergies: Patient has no known allergies. Social History Socioeconomic History Marital status: Tobacco Use Smoking status: Never Smokeless tobacco: Never Vaping Use Vaping status: Never Used Social Drivers of Health Financial Resource Strain: Low Risk (10/11/2024) Received from [facility] Overall Financial Resource Strain (CARDIA) Difficulty of Paying Living Expenses: Not hard at all Food Insecurity: No Food Insecurity (10/17/2024) Hunger Vital Sign Worried About Running Out of Food in the Last Year: Never true Ran Out of Food in the Last Year: Never true Transportation Needs: No Transportation Needs (10/17/2024) PRAPARE - Transportation Lack of Transportation (Medical): No Lack of Transportation (Non-Medical): No Housing Stability: Low Risk (10/17/2024) Housing Stability Vital Sign Unable to Pay for Housing in the Last Year: No Number of Times Moved in the Last Year: 1 Homeless in the Last Year: No History reviewed. No pertinent family history. Review of Systems Constitutional: Negative for activity change, appetite change, chills, fatigue, fever and unexpected weight change. HENT: Negative for hearing loss, nosebleeds and trouble swallowing. Eyes: Negative for visual disturbance. Respiratory: Negative for cough, shortness of breath, wheezing and stridor. Cardiovascular: Negative for chest pain and leg swelling. Gastrointestinal: Negative for abdominal distention, abdominal pain, blood in stool, constipation, diarrhea, nausea and vomiting. Endocrine: Negative for cold intolerance and heat intolerance. Genitourinary: Negative for difficulty urinating, frequency, hematuria and urgency. Musculoskeletal: Negative for arthralgias. Skin: Negative for rash and wound. Allergic/Immunologic: Negative for environmental allergies and food allergies. Neurological: Negative for seizures, syncope, weakness and numbness. Hematological: Negative for adenopathy. Does not bruise/bleed easily. Psychiatric/Behavioral: Negative for agitation and dysphoric mood. Objective Physical Exam Vitals reviewed. Constitutional: General: He is not in acute distress. Appearance: Normal appearance. He is well-developed. He is not diaphoretic. HENT: Head: Normocephalic and atraumatic. Right Ear: External ear normal. Left Ear: External ear normal. Nose: Nose normal. Eyes: Pupils: Pupils are equal, round, and reactive to light. Neck: Thyroid: No thyromegaly. Vascular: No JVD. Trachea: No tracheal deviation. Cardiovascular: Rate and Rhythm: Normal rate and regular rhythm. Heart sounds: Normal heart sounds. Pulmonary: Effort: Pulmonary effort is normal. No respiratory distress. Breath sounds: Normal breath sounds. Abdominal: General: Bowel sounds are normal. There is no distension. Palpations: Abdomen is soft. There is no mass. Tenderness: There is no abdominal tenderness. There is no guarding or rebound. Comments: Drain with serous output. Suture and drain cut and drain removed entirely. Covered with dry gauze. Musculoskeletal: General: Normal range of motion. Cervical back: Normal range of motion. Skin: General: Skin is warm and dry. Neurological: General: No focal deficit present. Mental Status: He is alert. Mental status is at baseline. Cranial Nerves: No cranial nerve deficit. Psychiatric: Behavior: Behavior normal. Assessment/Plan: Diagnoses and all orders for this visit: Perforated appendicitis - Case Request Operating Room: APPENDECTOMY ROBOTIC XI Other orders - Vital signs; Future - Height and weight; Standing - Vital signs; Standing - Surgical site prep Skin; Chlorhexidine Gluconate; Standing - Insert peripheral IV; Standing - lactated Ringers infusion - Intermittent pneumatic compression device Bilat LE; Standing - ceFAZolin (ANCEF) 2,000 mg in sodium chloride 0.9 % (NS) 100 mL IVPB - metroNIDAZOLE (FLAGYL) IVPB 500 mg - Recommended robotic laparoscopic appendectomy possible open possible resection. Discussed details of operation, rationale, R/B/A and the patient agrees to proceed. - Risks including but not limited to: Infections, bleeding, injury to other structures, need for reoperation, . documented in this encounter [facility] 10-19-2024 Progress note Formatting of t his note might be different from the original. Patient alert and oriented at time of discharge. After visit summary provided. Patient acknowledges understanding of discharge teaching with teach back. Education provided on incision care, and drain care. [facility] 10-19-2024 Miscellaneous Notes Patient alert and oriented at time of discharge. After visit summary provided. Patient acknowledges understanding of discharge teaching with steven back. Education provided on incision care, and drain care. Problem: Actual or potential alteration in health Goal: Absence of healthcare acquired conditions Outcome: Partially Met Goal: Knowledge of Interdisciplinary Plan of Care Outcome: Partially Met Goal: Knowledge of Enviroment Outcome: Partially Met Problem: Pain Goal: Reduced pain sensation Outcome: Partially Met Goal: Control of acute pain to acceptable level Outcome: Partially Met Goal: Able to cope with pain Outcome: Partially Met Goal: Able to achieve maximum level of physical functioning Outcome: Partially Met Goal: Able to achieve maximum level of psychosocial functioning Outcome: Partially Met Problem: Actual or potential alteration in health Goal: Absence of healthcare acquired conditions Outcome: Not Met Goal: Knowledge of Interdisciplinary Plan of Care Outcome: Partially Met Goal: Knowledge of Enviroment Outcome: Met Problem: Pain Goal: Reduced pain sensation Outcome: Partially Met Goal: Control of acute pain to acceptable level Outcome: Partially Met Goal: Able to cope with pain Outcome: Partially Met Goal: Able to achieve maximum level of physical functioning Outcome: Partially Met Goal: Able to achieve maximum level of psychosocial functioning Outcome: Partially Met Patient transferred self to cart awake and alert. Denies pain. 10 Fr drain placed to RLQ , Dr Holliday aspirated 10 ml serous drainage and sent to lab. Site prepped and draped RLQ Dr. Holliday explaining procedure to patient. Patient verbalizes understanding and consent signed. Patient positioned supine on table with all appropriate monitoring devices applied and safety straps in place. CT drain placement. Problem: Actual or potential alteration in health Goal: Absence of healthcare acquired conditions Outcome: Partially Met Goal: Knowledge of Interdisciplinary Plan of Care Outcome: Partially Met Goal: Knowledge of Enviroment Outcome: Partially Met documented in this encounter [facility] 10-19-2024 Note HMS DISCHARGE SUMMAR Y -- [facility] Sofya Cabrera Admitted: 10/17/2024 Discharge Date: 10/19/24 PCP Handoff Recommended Outpatient Testing Follow up with surgery and infectious disease in 2 weeks, follow up with PCP as needed Results Pending At Discharge Fluid Cultures Clinical Summary Sofya Cabrera is a 68 y.o. male patient of No primary care provider on file. With past medical history of hypertension who presented to [facility] on 10/17/2024 as a transfer from [facility] for higher level of care. Patient initially presented on 10/10/2024 and was found to have perforated appendix. Perforated appendix, with concern for subsequent abscess Right lower quadrant pain, in setting of above Leukocytosis CT Abdomen: Acute perforated appendicitis with multiple developing intraabdominal abscess WBC 17.11 Stop IV Zosyn, PO flagyl and Augmentin for 10 days ESR 103, CRP 131 Consult Surgery - they consulted IR, patient had a drain placed. Will follow-up in 2 weeks Consult Infectious Disease - IV zosyn while inpatient, PO Augmentin and Flagyl Hypertension Continue lisinopril Anemia Hgb 11.8 Follow up outpatient Thrombocytosis PLT 409 Follow up outpatient BPH Incidental finding on CT abdomen of enlarged prostate Follow up outpatient Overweight BMI 29.33 Encourage diet and lifestyle modifications Discharge Medications Discharge Medications New Medications Details amoxicillin-clavulanate 875-125 mg per tablet Commonly known as: AUGMENTIN Take 1 (one) tablet by mouth 2 (two) times a day for 10 days . Quantity: 20 tablet lisinopriL 40 MG tablet Commonly known as: PRINIVIL,ZESTRIL Start taking on: October 20, 2024 Take 1 (one) tablet (40 mg total) by mouth daily with lunch Start: 10/20/24. Quantity: 30 tablet metroNIDAZOLE 500 MG tablet Commonly known as: FLAGYL Take 1 (one) tablet (500 mg total) by mouth 3 (three) times a day with meals for 10 days . Quantity: 30 tablet Physician(s) Follow Up: Bashir Cleary CNP [facility] [address] MATTHEW Burger [facility] [id number] Follow up As needed De Rangel MD [address] [facility] [address] Follow up in 2 week(s) Facundo Woods MD [address] [facility] Radha [address] [id number] Follow up in 2 week(s) Condition at Discharge: Stable Disposition: Home I reviewed discharge recommendations with the patient in person. Patient instructions, including activity, were given to the patient/family at discharge. On day of discharge I saw Sofya Cabrera and spent: > 30 minutes on discharge. Completed by: Zulma Arango CNP on 10/19/24, 11:49 AM AUTHENTICATED BY ZULMA ARANGO, ON 10/19/2024 12:00:31 [facility] 10-19-2024 Hospital course Narrative [facility] DISCHARGE SUMMARY -- [facility] Sofya Cabrera Admitted: 10/17/2024 Discharge Date: 10/19/24 PCP Handoff Recommended Outpatient Testing Follow up with surgery and infectious disease in 2 weeks, follow up with PCP as needed Results Pending At Discharge Fluid Cultures Clinical Summary Sofya Cabrera is a 68 y.o. male patient of No primary care provider on file. With past medical history of hypertension who presented to [facility] on 10/17/2024 as a transfer from [facility] for higher level of care. Patient initially presented on 10/10/2024 and was found to have perforated appendix. Perforated appendix, with concern for subsequent abscess Right lower quadrant pain, in setting of above Leukocytosis CT Abdomen: Acute perforated appendicitis with multiple developing intraabdominal abscess WBC 17.11 Stop IV Zosyn, PO flagyl and Augmentin for 10 days ESR 103, CRP 131 Consult Surgery - they consulted IR, patient had a drain placed. Will follow-up in 2 weeks Consult Infectious Disease - IV zosyn while inpatient, PO Augmentin and Flagyl Hypertension Continue lisinopril Anemia Hgb 11.8 Follow up outpatient Thrombocytosis PLT 409 Follow up outpatient BPH Incidental finding on CT abdomen of enlarged prostate Follow up outpatient Overweight BMI 29.33 Encourage diet and lifestyle modifications Discharge Medications Discharge Medications New Medications Details amoxicillin-clavulanate 875-125 mg per tablet Commonly known as: AUGMENTIN Take 1 (one) tablet by mouth 2 (two) times a day for 10 days . Quantity: 20 tablet lisinopriL 40 MG tablet Commonly known as: PRINIVIL,ZESTRIL Start taking on: October 20, 2024 Take 1 (one) tablet (40 mg total) by mouth daily with lunch Start: 10/20/24. Quantity: 30 tablet metroNIDAZOLE 500 MG tablet Commonly known as: FLAGYL Take 1 (one) tablet (500 mg total) by mouth 3 (three) times a day with meals for 10 days . Quantity: 30 tablet Physician(s) Follow Up: Bashir Cleary CNP [address] [address] Follow up As needed De Rangel MD [address] [id number] Follow up in 2 week(s) Facundo Woods MD [address] [id number] Follow up in 2 week(s) Condition at Discharge: Stable Disposition: Home I reviewed discharge recommendations with the patient in person. Patient instructions, including activity, were given to the patient/family at discharge. On day of discharge I saw Sofya Cabrera and spent: > 30 minutes on discharge. Completed by: Zulma Arango CNP on 10/19/24, 11:49 AM documented in this encounter [facility] 10-19-2024 Note Patient Name: Sofya Cabrera Admit Date: [id number] MR #: [id number] : 1955 Physicians: Bashir Cleary CNP (Family); Honey Shi MD (Referring) Assessment: Patient with Perforated appendicitis Right lower quadrant abscess Right lower quadrant pain Leukocytosis Plan: Continue present management. Patient on IV Zosyn Follow-up with lab, culture and sensitivity CRP and ESR Get a blood culture CT abdomen with contrast with acute perforated appendicitis. CT abdomen without contrast showing dilated appendix with inflammatory stranding. CT abdomen and pelvis with findings consistent with acute perforated appendicitis with multiple probable developing intra-abdominal abscess, with largest in the right paracolic gutter. I appreciate interventional radiologist evaluation. Patient is s/p right lower quadrant abscess drainage done . We will continue to follow Disposition Comment: Patient to be discharged home on oral Augmentin and metronidazole. Follow-up with the clinic in 2 weeks. Subjective: Patient is seen today and doing well after abdominal drainage. He is getting ready for discharge. Has no complaint today has no fever or chills and is saturating well on room air. Exam: PACU Vitals 10/19/24 0819 BP: 121/69 Pulse: 81 Resp: 16 Temp: 98.3 degrees F (36.8 degrees C) SpO2: 96% Allergies: Patient has no known allergies. Medications Reviewed. Current Facility-Administered Medications: acetaminophen (TYLENOL) tablet 975 mg, 975 mg, Oral, Q8H PRN, Erlinda Gilman, DO, 975 mg at 10/19/24 0139 bisacodyL (DULCOLAX) suppository 10 mg, 10 mg, Rectal, Daily PRN, Erlinda Gilman, DO docusate sodium (COLACE) capsule 100 mg, 100 mg, Oral, Daily PRN, Erlinda Gilman, DO fentaNYL (SUBLIMAZE) inj syringe 50 mcg, 50 mcg, Intravenous, Q5 Min PRN, Mary Holliday MD naloxone (NARCAN) injection 0.1 mg, 0.1 mg, Intravenous, PRN AND naloxone (NARCAN) injection 0.4 mg, 0.4 mg, Intravenous, PRN AND flumazeniL (ROMAZICON) injection 0.2 mg, 0.2 mg, Intravenous, PRN, Mary Holliday MD lisinopriL (PRINIVIL,ZESTRIL) tablet 40 mg, 40 mg, Oral, Daily with lunch, Erlinda Gilmanza, DO, 40 mg at 10/18/24 1229 melatonin Tab 5 mg, 5 mg, Oral, Nightly PRN, Kiza, Erlinda Niwemukiza, DO midazolam (VERSED) injection 1 mg, 1 mg, Intravenous, Q5 Min PRN, Mary Holliday MD nitroGLYCERIN (NITROSTAT) SL tablet 0.4 mg, 0.4 mg, Sublingual, Q5 Min PRN, Kiza, Erlinda Niwemukiza, DO ondansetron (ZOFRAN-ODT) disintegrating tablet 4 mg, 4 mg, Oral, Q6H PRN OR ondansetron (ZOFRAN) injection 4 mg, 4 mg, Intravenous, Q6H PRN, Kiza, Erlinda Niwemukiza, DO piperacillin-tazobactam (ZOSYN) IVPB 3.375 g (premix), 3.375 g, Intravenous, Q8H, Kiza, Erlinda Niwemukiza, DO, Last Rate: 12.5 mL/hr at 10/19/24 0644, 3.375 g at 10/19/24 0644 senna (SENOKOT) tablet 8.6 mg, 1 tablet, Oral, BID PRN, Kiza, Erlinda Niwemukiza, DO Saline lock IV, , , Continuous AND sodium chloride (PF) (NS) flush 5 mL, 5 mL, Intravenous, PRN AND sodium chloride (PF) (NS) flush 5 mL, 5 mL, Intravenous, Q8H JAMIR, 5 mL at 10/19/24 0621 AND sodium chloride 0.9% (NS), 0-150 mL/hr, Intravenous, PRN, Kiza, Erlinda Niwemukiza, DO, Last Rate: 15 mL/hr at 10/19/24 0644, 15 mL/hr at 10/19/24 0644 traZODone (DESYREL) tablet 50 mg, 50 mg, Oral, Nightly PRN, Kiza, Erlinda Niwemukiza, DO No current outpatient medications on file. Review of Systems: Constitutional: Negative for fatigue, change in appetite, chills and fever. HENT: Negative for congestion and rhinorrhea. Negative for ear pain, sore throat. Eyes: Negative for pain and redness. Respiratory: Negative for cough and shortness of breath. Cardiovascular: Negative for chest pain and palpitations. Gastrointestinal: Negative for abdominal pain, constipation, diarrhea, nausea and vomiting. Genitourinary: Negative for difficulty urinating, dysuria, frequency, hesitancy, flank pain Musculoskeletal: Negative for back pain, neck pain and neck stiffness. Skin: Negative for color change and rash. Neurological: Negative for lightheadedness, dizziness, syncope, weakness and headaches. Psychiatric/Behavioral: Negative for confusion, hallucinations and suicidal ideas. Positives and pertinent negatives as per HPI. PMH/PSH/SH/FH reviewed, no change Chart Reviewed. Exam Findings: ENT: No oral candidiasis Chest: Lungs clear bilaterally, no wheezing, or rales CVS: Normal S1 & S2+, Normal Rhythm Abdomen: Normal symmetry, Soft/non-tender. Benign, BS+ Extremities: No Deformities or Edema Skin: Intact & No Rashes, or excoriations Musculoskeletal: No joint swelling, non tender PRODUCT SAFETY EXPERT: Awake, and Ox3 Wound: Rios Catheter: IV Access: yes I reviewed Medications. I reviewed Labs. CT Abscess Drainage Peritoneal Final Result 1. Technically successful CT-guided 10 Syrian right lower quadrant abscess d (more content not included)... [facility] 10-19-2024 History of Present illness Narrative [place] [facility] DAILY PROGRESS NOTE SURGICAL PROBLEM Perforated appendicitis with abscess ASSESSMENT & PLAN/ACTIVE MEDICAL PROBLEMS: Perforated diverticulitis with abscess S/p IR drain placement 10/18 WBC 17 (15.5); TMAX 99.3 RLQ drain with 75 ml cloudy output / 24 hours ID following, continue zosyn Drain care Regular diet Interval appendectomy once inflammation cools down SURGERIES/PROCEDURES: Date Operation/Procedure Provider Name 10/18/[address] Holliday INCIDENTAL FINDINGS: Prostatomegaly . Right adrenal nodule Bilateral simple renal cysts RESOLVED PROBLEMS: DISPOSITION PLAN - per primary Antibiotics: per ID recs With Drain: yes Dressing changes Drain dressing care . Follow up within: two weeks CHIEF COMPLAINT/ HPI / PFSHx / EVENTS OVER LAST 24HRS: Sitting on the side of the bed, no overnight events. REVIEW OF SYSTEMS: Other than the above items the remainder of the complete ROS is otherwise unchanged from admission. PHYSICAL EXAM: Temp: [97.6 F (36.4 C)-99.3 F (37.4 C)] 98.3 F (36.8 C) Heart Rate: [74-86] 81 Resp: [15-18] 16 BP: (109-130)/(62-80) 121/69 GENERAL: Appears age appropriate. No acute distress. NEUROLOGICAL: Alert and oriented X 3. Follows commands. No focal neurologic deficits noted. Head: Atraumatic, normocephalic.Throat: phonation normal CARDIOVASCULAR: Regular rate and rhythm. No peripheral edema noted. RESPIRATORY: Respiratory effort unlabored without use of accessory muscles. RA. ABDOMINAL: Rounded, soft, nontender, non distended. RLQ TRUNG intact with cloudy output. No guarding or peritoneal signs. GENITOURINARY: Normal genitalia for age without lesion or trauma. MUSCULOSKELETAL: Extremities atraumatic without gross deformity x4. SKIN: Skin warm and dry. Intake/Output Summary (Last 24 hours) at 10/19/2024 1047 Last data filed at 10/19/2024 1036 Gross per 24 hour Intake 750.46 ml Output 95 ml Net 655.46 ml IMAGING [briefly note any results pertinent to today's evaluation]: CT A/P LABS Lab Results Component Value Date WBC 17.11 (H) 10/19/2024 HGB 11.8 (L) 10/19/2024 HCT 36.5 (L) 10/19/2024 MCV 99.2 10/19/2024 PLT 409 (H) 10/19/2024 RBC 3.68 (L) 10/19/2024 Lab Results Component Value Date GLUCOSE 103 (H) 10/19/2024 CALCIUM 8.7 10/19/2024 NA 134 (L) 10/19/2024 K 4.3 10/19/2024 CL 100 10/19/2024 BUN 19 10/19/2024 CREATININE 1.24 10/19/2024 Lab Results Component Value Date ALT 12 10/19/2024 AST 17 10/19/2024 ALKPHOS 57 10/19/2024 BILITOT 0.4 10/19/2024 [facility] PROGRESS NOTE Assessment and Plan Sofya Cabrera is a 68 y.o. male patient of No primary care provider on file. With past medical history of hypertension who presented to [facility] on 10/17/2024 as a transfer from [facility] for higher level of care. Patient initially presented on 10/10/2024 and was found to have perforated appendix. Perforated appendix, with concern for subsequent abscess Right lower quadrant pain, in setting of above Leukocytosis CT Abdomen: Acute perforated appendicitis with multiple developing intraabdominal abscess WBC 17.72>15.98 IV Zosyn ESR 55, CRP 151 NPO Consult Surgery Consult Infectious Disease PRN Pain Management Hypertension Continue lisinopril Anemia Hgb 11.7 Transfuse for Hgb <7 Continue to trend BPH Incidental finding on CT abdomen of enlarged prostate Follow up outpatient Overweight BMI 29.33 Encourage diet and lifestyle modifications Resolved acute medical issues Discharge Planning Medically Stable for Discharge Date: 10/20/24 Patient requires continued hospitalization due to: IR, Surgery, ID, IV antibiotics Discharge Location: Home Quality Measures DVT Prophylaxis: SCDs Rios Catheter: absent Code Status Full Primary Contact Information Subjective Patient resting in bed, currently without pain. Patient states when he has pain that tylenol helps. Objective BP 118/70 Pulse 84 Temp 97.3 F (36.3 C) (Oral) Resp 18 Ht 5' 8 Wt 87.5 kg (192 lb 14.4 oz) SpO2 93% BMI 29.33 kg/m Physical Examination General Appearance: alert; well appearing; in no acute distress HEENT: Head- normocephalic; Eyes- EOMI, sclera anicteric; Throat- mucous membranes moist Cardiovascular: regular rate and rhythm; normal S1, S2; no murmurs, rubs, clicks or gallops; peripheral edema absent Respiratory: lungs clear to auscultation; without wheezes, rales or rhonchi; on room air Abdomen: Distended Neurological: oriented x 3; normal speech; no focal findings or movement disorder noted Musculoskeletal: no significant deformity or tenderness to palpation Skin: normal coloration Psych: normal mood and affect documented in this encounter [facility] 10-19-2024 Note [place] [facility] DAILY PROGRESS NOTE SURGICAL PROBLEM Perforated appendicitis with abscess ASSESSMENT & PLAN/ACTIVE MEDICAL PROBLEMS: Perforated diverticulitis with abscess S/p IR drain placement 10/18 WBC 17 (15.5); TMAX 99.3 RLQ drain with 75 ml cloudy output / 24 hours ID following, continue zosyn Drain care Regular diet Interval appendectomy once inflammation cools down SURGERIES/PROCEDURES: Date Operation/Procedure Provider Name 10/18/[address] Holliday INCIDENTAL FINDINGS: Prostatomegaly . Right adrenal nodule Bilateral simple renal cysts RESOLVED PROBLEMS: DISPOSITION PLAN - per primary Antibiotics: per ID recs With Drain: yes Dressing changes Drain dressing care . Follow up within: two weeks CHIEF COMPLAINT/ HPI / PFSHx / EVENTS OVER LAST 24HRS: Sitting on the side of the bed, no overnight events. REVIEW OF SYSTEMS: Other than the above items the remainder of the complete ROS is otherwise unchanged from admission. PHYSICAL EXAM: Temp: [97.6 degrees F (36.4 degrees C)-99.3 degrees F (37.4 degrees C)] 98.3 degrees F (36.8 degrees C) Heart Rate: [74-86] 81 Resp: [15-18] 16 BP: (109-130)/(62-80) 121/69 GENERAL: Appears age appropriate. No acute distress. NEUROLOGICAL: Alert and oriented X 3. Follows commands. No focal neurologic deficits noted. Head: Atraumatic, normocephalic.Throat: phonation normal CARDIOVASCULAR: Regular rate and rhythm. No peripheral edema noted. RESPIRATORY: Respiratory effort unlabored without use of accessory muscles. RA. ABDOMINAL: Rounded, soft, nontender, non distended. RLQ TRUNG intact with cloudy output. No guarding or peritoneal signs. GENITOURINARY: Normal genitalia for age without lesion or trauma. MUSCULOSKELETAL: Extremities atraumatic without gross deformity x4. SKIN: Skin warm and dry. Intake/Output Summary (Last 24 hours) at 10/19/2024 1047 Last data filed at 10/19/2024 1036 Gross per 24 hour Intake 750.46 ml Output 95 ml Net 655.46 ml IMAGING [briefly note any results pertinent to today's evaluation]: CT A/P LABS Lab Results Component Value Date WBC 17.11 (H) 10/19/2024 HGB 11.8 (L) 10/19/2024 HCT 36.5 (L) 10/19/2024 MCV 99.2 10/19/2024 PLT 409 (H) 10/19/2024 RBC 3.68 (L) 10/19/2024 Lab Results Component Value Date GLUCOSE 103 (H) 10/19/2024 CALCIUM 8.7 10/19/2024 NA 134 (L) 10/19/2024 K 4.3 10/19/2024 CL 100 10/19/2024 BUN 19 10/19/2024 CREATININE 1.24 10/19/2024 Lab Results Component Value Date ALT 12 10/19/2024 AST 17 10/19/2024 ALKPHOS 57 10/19/2024 BILITOT 0.4 10/19/2024 AUTHENTICATED BY AKIL CORRALES, ON 10/19/2024 10:54:47 [facility] 10-19-2024 Plan of care note Problem: Actual or potential alteration in health Goal: Absence of healthcare acquired conditions Outcome: Partially Met Goal: Knowledge of Interdisciplinary Plan of Care Outcome: Partially Met Goal: Knowledge of Enviroment Outcome: Partially Met Problem: Pain Goal: Reduced pain sensation Outcome: Partially Met Goal: Control of acute pain to acceptable level Outcome: Partially Met Goal: Able to cope with pain Outcome: Partially Met Goal: Able to achieve maximum level of physical functioning Outcome: Partially Met Goal: Able to achieve maximum level of psychosocial functioning Outcome: Partially Met [facility] 10-19-2024 Plan of care note Problem: Actual or potential alteration in health Goal: Absence of healthcare acquired conditions Outcome: Not Met Goal: Knowledge of Interdisciplinary Plan of Care Outcome: Partially Met Goal: Knowledge of Enviroment Outcome: Met Problem: Pain Goal: Reduced pain sensation Outcome: Partially Met Goal: Control of acute pain to acceptable level Outcome: Partially Met Goal: Able to cope with pain Outcome: Partially Met Goal: Able to achieve maximum level of physical functioning Outcome: Partially Met Goal: Able to achieve maximum level of psychosocial functioning Outcome: Partially Met [facility] 10-18-2024 Note Vascular & Intervent ional Radiology Provided By [facility] (Diagnostic Radiology, Interventional and Neurointerventional Radiology and Vascular Medicine) [facility]: [phone] [email or web address] SALES ORDER COORDINATOR DIRECTORY PROCEDURE: CT guided RLQ abdominal abscess drain placement PLAN: Drain to suction bulb drainage Record volume Q shift and PRN Routine dressing changes Date: 10/18/2024 Patient Name: Sofya Cabrera Patient : 1955 Physician: Mary Holliday MD Sedation Plan: Moderate ASA Classification: ASA 2 - Patient with mild systemic disease with no functional limitations Mallampati Classification: Class II: Partial uvula and soft palate are visualized Hammond Protocol: Pre-Procedural verification: Correct patient, correct site and correct procedure confirmed. H&P or interval update complete and in medical record. Informed consent form completed and signed. Radiology images, labs and pathology reviewed with appropriate identifiers (when applicable). Site Marking: N/A Time Out: PERFORMED Technique: See dictation. Complications: None Full report to follow AUTHENTICATED BY MARY HOLLIDAY ON 10/18/2024 12:27:35 [facility] 10-18-2024 Procedure note Vascular & Interventional Radiology Provided By [facility] (Diagnostic Radiology, Interventional and Neurointerventional Radiology and Vascular Medicine) [facility]: [phone] [email or web address] SALES ORDER COORDINATOR DIRECTORY PROCEDURE: CT guided RLQ abdominal abscess drain placement PLAN: Drain to suction bulb drainage Record volume Q shift and PRN Routine dressing changes Date: 10/18/2024 Patient Name: Sofya Cabrera Patient : 1955 Physician: Mary Holliday MD Sedation Plan: Moderate ASA Classification: ASA 2 - Patient with mild systemic disease with no functional limitations Mallampati Classification: Class II: Partial uvula and soft palate are visualized Hammond Protocol: Pre-Procedural verification: Correct patient, correct site and correct procedure confirmed. H&P or interval update complete and in medical record. Informed consent form completed and signed. Radiology images, labs and pathology reviewed with appropriate identifiers (when applicable). Site Marking: N/A Time Out: PERFORMED Technique: See dictation. Complications: None Full report to follow [facility] 10-18-2024 Procedure note Vascular & Interventional Radiology Provided By [facility] (Diagnostic Radiology, Interventional and Neurointerventional Radiology and Vascular Medicine) [facility]: [phone] [email or web address] SALES ORDER COORDINATOR DIRECTORY PROCEDURE: CT guided RLQ abdominal abscess drain placement PLAN: Drain to suction bulb drainage Record volume Q shift and PRN Routine dressing changes Date: 10/18/2024 Patient Name: Sofya Cabrera Patient : 1955 Physician: Mary Holliday MD Sedation Plan: Moderate ASA Classification: ASA 2 - Patient with mild systemic disease with no functional limitations Mallampati Classification: Class II: Partial uvula and soft palate are visualized Hammond Protocol: Pre-Procedural verification: Correct patient, correct site and correct procedure confirmed. H&P or interval update complete and in medical record. Informed consent form completed and signed. Radiology images, labs and pathology reviewed with appropriate identifiers (when applicable). Site Marking: N/A Time Out: PERFORMED Technique: See dictation. Complications: None Full report to follow documented in this encounter [facility] 10-18-2024 Nurse procedure note Patient transferred self to [facility] awake and alert. Denies pain. [facility] 10-18-2024 Nurse procedure note 10 Fr drain placed to RLQ , Dr Holliday aspirated 10 ml serous drainage and sent to lab. [facility] 10-18-2024 Nurse procedure note Site prepped and draped RLQ [facility] 10-18-[address] Holliday explaining procedure to patient. Patient verbalizes understanding and consent signed. Patient positioned supine on table with all appropriate monitoring devices applied and safety straps in place. CT drain placement. [facility] 10-18-2024 Attending History and physical note INTERVAL HISTORY AND PHYSICAL Patient Name: Sofya Cabrera Admit Date: 12171204 MR #: [id number] : 1955 The H&P has been reviewed and the patient has been examined. I concur with the findings of the H&P. There are no significant changes. It is appropriate to proceed with the planned procedure. Mod sedation, asa 2. Mallamapti II. CV: RRR. Lungs: Clear. Mary Holliday MD 10/18/2024 9:59 AM Source Note - Zulma Arango, EULALIO - 10/18/2024 8:59 AM EST [facility] PROGRESS NOTE Assessment and Plan Sofya Cabrera is a 68 y.o. male patient of No primary care provider on file. With past medical history of hypertension who presented to [facility] on 10/17/2024 as a transfer from [facility] for higher level of care. Patient initially presented on 10/10/2024 and was found to have perforated appendix. Perforated appendix, with concern for subsequent abscess Right lower quadrant pain, in setting of above Leukocytosis CT Abdomen: Acute perforated appendicitis with multiple developing intraabdominal abscess WBC 17.72>15.98 IV Zosyn ESR 55, CRP 151 NPO Consult Surgery Consult Infectious Disease PRN Pain Management Hypertension Continue lisinopril Anemia Hgb 11.7 Transfuse for Hgb <7 Continue to trend BPH Incidental finding on CT abdomen of enlarged prostate Follow up outpatient Overweight BMI 29.33 Encourage diet and lifestyle modifications Resolved acute medical issues Discharge Planning Medically Stable for Discharge Date: 10/20/24 Patient requires continued hospitalization due to: IR, Surgery, ID, IV antibiotics Discharge Location: Home Quality Measures DVT Prophylaxis: SCDs Rios Catheter: absent Code Status Full Primary Contact Information Subjective Patient resting in bed, currently without pain. Patient states when he has pain that tylenol helps. Objective BP 118/70 Pulse 84 Temp 97.3 F (36.3 C) (Oral) Resp 18 Ht 5' 8 Wt 87.5 kg (192 lb 14.4 oz) SpO2 93% BMI 29.33 kg/m Physical Examination General Appearance: alert; well appearing; in no acute distress HEENT: Head- normocephalic; Eyes- EOMI, sclera anicteric; Throat- mucous membranes moist Cardiovascular: regular rate and rhythm; normal S1, S2; no murmurs, rubs, clicks or gallops; peripheral edema absent Respiratory: lungs clear to auscultation; without wheezes, rales or rhonchi; on room air Abdomen: Distended Neurological: oriented x 3; normal speech; no focal findings or movement disorder noted Musculoskeletal: no significant deformity or tenderness to palpation Skin: normal coloration Psych: normal mood and affect [facility] Work Phone: 10-18-2024 History and physical note INTERVAL HISTORY AND PHYSICAL Patient Name: Sofya Cabrera Admit Date: 12171204 MR #: [id number] : 1955 The H&P has been reviewed and the patient has been examined. I concur with the findings of the H&P. There are no significant changes. It is appropriate to proceed with the planned procedure. Mod sedation, asa 2. Mallamapti II. CV: RRR. Lungs: Clear. Mary Holliday MD 10/18/2024 9:59 AM Source Note - Zulma Arango, EULALIO - 10/18/2024 8:59 AM EST [facility] [place] PROGRESS NOTE Assessment and Plan Sofya Cabrera is a 68 y.o. male patient of No primary care provider on file. With past medical history of hypertension who presented to [facility] on 10/17/2024 as a transfer from [facility] for higher level of care. Patient initially presented on 10/10/2024 and was found to have perforated appendix. Perforated appendix, with concern for subsequent abscess Right lower quadrant pain, in setting of above Leukocytosis CT Abdomen: Acute perforated appendicitis with multiple developing intraabdominal abscess WBC 17.72>15.98 IV Zosyn ESR 55, CRP 151 NPO Consult Surgery Consult Infectious Disease PRN Pain Management Hypertension Continue lisinopril Anemia Hgb 11.7 Transfuse for Hgb <7 Continue to trend BPH Incidental finding on CT abdomen of enlarged prostate Follow up outpatient Overweight BMI 29.33 Encourage diet and lifestyle modifications Resolved acute medical issues Discharge Planning Medically Stable for Discharge Date: 10/20/24 Patient requires continued hospitalization due to: IR, Surgery, ID, IV antibiotics Discharge Location: Home Quality Measures DVT Prophylaxis: SCDs Rios Catheter: absent Code Status Full Primary Contact Information Subjective Patient resting in bed, currently without pain. Patient states when he has pain that tylenol helps. Objective BP 118/70 Pulse 84 Temp 97.3 F (36.3 C) (Oral) Resp 18 Ht 5' 8 Wt 87.5 kg (192 lb 14.4 oz) SpO2 93% BMI 29.33 kg/m Physical Examination General Appearance: alert; well appearing; in no acute distress HEENT: Head- normocephalic; Eyes- EOMI, sclera anicteric; Throat- mucous membranes moist Cardiovascular: regular rate and rhythm; normal S1, S2; no murmurs, rubs, clicks or gallops; peripheral edema absent Respiratory: lungs clear to auscultation; without wheezes, rales or rhonchi; on room air Abdomen: Distended Neurological: oriented x 3; normal speech; no focal findings or movement disorder noted Musculoskeletal: no significant deformity or tenderness to palpation Skin: normal coloration Psych: normal mood and affect HMS HISTORY AND PHYSICAL -- [facility] Patient Name: Sofya Cabrera : 1955 MR #: [id number] Admit Date: 10/17/2024 Physicians: No primary care provider on file. (Family); Honey Shi MD (Referring) Sofya Cabrera is a 68 y.o. male patient of No primary care provider on file. With past medical history of hypertension who presented to [facility] on 10/17/2024 as a transfer from [facility] for higher level of care. Patient initially presented on 10/10/2024 and was found to have perforated appendix. Follow-up CT abdomen from 10/17/2024 revealed intra-abdominal abscess, patient was transferred for source control by interventional radiology. Perforated appendix, with concern for subsequent abscess Right lower quadrant pain, in setting of above Presents as transfer for higher level of care including percutaneous abscess drainage by interventional radiology No records including images available at this time. Will repeat CT abdomen pelvis to facilitate source control Broad-spectrum coverage with Zosyn Will consult infectious disease for assistance with antibiotics management Check ESR, CRP, procalcitonin N.p.o. at midnight Pain control with as needed Tylenol Hypertension Continue home lisinopril 40 mg daily Limited medical records Patient hospitalized for approximately 7 days No medical records at this time Pending attempts to obtain hospitalization medical records Residence prior to admission: house or apartment Was patient transferred from outlying hospital or ED yes -- care site [facility] Quality Measures DVT Prophylaxis: SCDs Rios Catheter: absent Medication Reconciliation: Verified Admitted with these risk variables: Please see assessment and plan for further details. Estimated Date of Discharge greater than 2 midnights Code Status Full Code; code status verified on 10/17/2024 with confirmed by patient medical records Chief Complaint perforated appendix with concern for abdominal abscess History of Present Illness Sofya Cabrera is a 68 y.o. male patient of No primary care provider on file. With no significant past medical history who presented to [facility] on 10/17/2024 as a transfer from [facility] for higher level of care, with perforated appendix and concern for intra-abdominal abscess needing drainage by interventional radiology. Patient seen and examined upon arrival. Comfortably seated in bed. He states that approximately 9 days ago, he started feeling right lower quadrant abdominal discomfort, after eating lunch. This progressively worsened; with some worsening associated anorexia. No nausea or vomiting. He googled and was concerned with appendix. He presented to the emergency department and this was confirmed by CT imaging. Patient states that he has been receiving antibiotics treatment at [facility], however, he was transferred for percutaneous tube drainage. He denies fever, chills, lightheadedness, or dyspnea. Other signs and symptoms are concerning for systemic infection reviewed and negative. Patient states that his pain has been well-controlled with as needed Tylenol. Agreeable with continued management including involving interventional radiology to assist with source control. Past Medical History No past medical history on file. Past Surgical History No past surgical history on file. Family History No family history on file. Social History Social History Tobacco Use Smoking Status Not on file Smokeless Tobacco Not on file Social History Substance and Sexual Activity Alcohol Use Not on file Social History Substance and Sexual Activity Drug Use Not on file Allergy Information I have reviewed the patient's allergies. Patient has no allergy information on record. Home Medications Home medications were reviewed. Review Of Systems All relevant systems have been reviewed and are negative except as noted in HPI or below Physical Examination BP (!) 159/91 (BP Location: Left arm, Patient Position: Sitting) Pulse 82 Temp 98.2 F (36.8 C) (Oral) Resp 16 SpO2 91% General Appearance: alert; well appearing; in no acute distress HEENT: Head- normocephalic; Eyes- EOMI, sclera anicteric; Throat- mucous membranes moist Cardiovascular: regular rate and rhythm; normal S1, S2; no murmurs, rubs, clicks or gallops; peripheral edema absent Respiratory: lungs clear to auscultation; without wheezes, rales or rhonchi; on room air Abdomen: soft, non-distended, bowel sounds present in all 4 quadrants, minimal pain in the right lower quadrant reported with deep palpation Neurological: oriented x 3; normal speech; no focal findings or movement disorder noted Musculoskeletal: no significant deformity or tenderness to palpation Skin: normal coloration Psych: normal mood and affect ---- The note was dictated using [email or web address] dictation system. The voice recognition software is inherently subject to errors including those of syntax and sound-alike substitutions which may escape proofreading. In such instances, original meaning may be extrapolated by contextual derivation. Reach out to me via [employer] Chat for clarification, if needed. documented in this encounter [facility] 10-18-2024 Note EXAMINATION: ACT ABSCESS DRAINAGE PERITONEAL PROCEDURE: 1. CT guided abscess drain placement. 2. Limited IR CT. HISTORY: 68-year-old with perforated appendicitis presenting for right lower quadrant abscess drain placement. COMPARISON: CT abdomen pelvis 10/18/2024 OPERATING PHYSICIAN: Mary Holliday MD MEDICATIONS: Lidocaine, local Fentanyl: 100 mcg Versed: 2 mg RADIATION DOSE: DLP: 540 mGycm TECHNIQUE/FINDINGS: Informed written consent was obtained from the patient and witnessed following a discussion of the benefits and potential risks of the procedure which include but are not limited to infection, bleeding, and injury to adjacent structures. The patient's concerns were addressed. The patient was brought to the angiography suite and placed in a supine position. A time-out and pause/confirm was performed according to hospital policy. Initial CT images demonstrate the right lower quadrant collection an appropriate skin entry site was selected and marked. The right lower abdomen was prepped and draped in usual sterile fashion. All elements of maximal sterile barrier techniques were followed and when used sterile ultrasound preparation was utilized. The skin and underlying soft tissues were anesthetized with lidocaine. Under iterative CT guidance, an 18 gauge needle was advanced into the collection yielding immediate return of cloudy yellow fluid. A sample was obtained and sent to the lab for analysis. An Amplatz wire was advanced through the needle and into the collection. The needle was removed. Following serial dilation, a 10 Syrian M type pigtail drainage catheter was advanced over the wire and into the collection. The wire and inner stiffener were removed and the pigtail locking mechanism engaged. The drain was connected to bulb suction and secured in place with a single nylon suture. An appropriate sterile dressing was placed. The patient tolerated the procedure well without evidence of immediate postprocedural complication. IV moderate sedation was administered with continuous personal physician supervision for 30 minutes throughout the procedure with Versed and fentanyl after assessment of the patient's airway was complete. Continuous pulse oximetry and capnography monitoring was performed under personal physician supervision. ESTIMATED BLOOD LOSS: Less than 5 mL COMPLICATIONS: None IMPRESSION: 1. Technically successful CT-guided 10 Syrian right lower quadrant abscess drain placement. Workstation ID: [id number] Dictated by: MARY HOLLIDAY on TueOct 18, 2024 12:33:46 PM EST Transcribed by: MARY HOLLIDAY on TueOct 18, 2024 12:33:46 PM EST Finalized by: MARY HOLLIDAY on TueOct 18, 2024 12:33:46 PM EST [facility] Comment on above: Order Comment: Injur y/Trauma or Illness?:Illness/OtherHow long have you had these symptoms (acute/chronic)?:AcuteReason for exam?:perf appyType of Exam?:InitialAdditional signs and symptoms?:n/a 10-18-2024 Consult note Associated Order (s): IP CONSULT TO INTERVENTIONAL RADIOLOGY Images from the original note were not included. Vascular & Interventional Radiology Provided By [facility] (Diagnostic Radiology, Interventional and Neurointerventional Radiology and Vascular Medicine) Interventional Radiology Department @ : [phone] CT Procedures @ : [phone] [place] Procedures @ : [phone] [facility] clinic @ : [phone] [email or web address] [facility] SALES ORDER COORDINATOR DIRECTORY The consult was reviewed. The patient's chart was reviewed. The patient's H&P was reviewed. The patient will be scheduled for the requested RLQ abscess drain placement procedure. Procedure date and time TBD by the Control Desk per the designated modality with corresponding contact numbers as noted above, after anticoagulant/antiplatelet medications have been reviewed and pre-procedural recommendations have been met per guidelines below. Please refer to the procedure note section for preliminary procedure details as well as the imaging section for the final procedure report. Pertinent image (if applicable): Pertinent labs are as follows: Results from last 7 days Lab Units 10/18/24 0732 INR 1.3* No results found for: PTT Lab Results Component Value Date PLT 325 10/18/2024 Lab Results Component Value Date BUN 22 10/18/2024 Lab Results Component Value Date CREATININE 1.11 10/18/2024 Patient's allergies are as follows: Allergies as of 10/17/2024 (No Known Allergies) [facility] Steffany-procedure lab value guideline: Table 1. LOW Bleeding Risk Laboratory Guidelines Low Bleeding Risk Procedures Target Laboratory Values3 Bone Marrow Biopsy [Platelet Count - N/A] Catheter exchanges (gastrostomy, biliary, nephrostomy, abscess, including gastrostomy/gastrojejunostomy conversions) CVC tunneled >/= 8 Fr* Diagnostic venography and select venous interventions: pelvis and extremities Dialysis shunt interventions IVC filter placement and removal Non-tunneled chest tube placement for pleural effusion Non-tunneled venous access and removal (including PICC placement) and Tunneled venous access Paracentesis Peripheral nerve blocks, joint, and musculoskeletal injections Sacroiliac joint injection and sacral lateral branch blocks Superficial abscess drainage or biopsy (palpable lesion, lymph node, soft tissue, breast, thyroid) Thoracentesis Trans jugular liver biopsy Trigger point injections including piriformis Tunneled drainage catheter placement* PT/INR < 2.0 - 3.0 Platelets > 20,000/mcL (Consider transfusing platelets if <20,000/mcL) If patient with Chronic Liver Disease (based on expert opinion): PT/INR < 3.0 (Consider Vitamin K infusion if INR >3.0) Platelets > 20,000/mcL (Transfuse platelets if <20,000/mcL in patients with a large spleen) Fibrinogen > 100mg/dL (Consider cryoprecipitate if <100mg/dL) *If on Direct Oral Anticoagulant (DOAC), follow HIGH Bleeding Risk recommendations in Table 2 and Table 3 Table 2. HIGH Bleeding Risk Laboratory Guidelines: HIGH Bleeding Risk Procedures Target Laboratory Values3 Ablations: solid organs, bone, soft tissue, lung Arterial diagnostic interventions: aortic, pelvic, mesenteric, peripheral Biliary interventions (including cholecystostomy tube placement) Catheter directed thrombolysis/thrombectomy- DVT, PE, portal vein (Highly case dependent) Deep abscess drainage (e.g., lung parenchyma, abdominal, pelvic, retroperitoneal) Deep non organ biopsies (e.g., spine, soft tissue in intra-abdominal, retroperitoneal, pelvic compartments) Gastrostomy/gastrojejunostomy placement IVC filter removal complex Lumbar puncture Lymphangiography Portal vein interventions Solid organ biopsies Spine procedures with risk of spinal or epidural hematoma (e.g., kyphoplasty, vertebroplasty, epidural injections, facet blocks) Trans jugular intrahepatic portosystemic shunt Port placement/removal (Buried) Urinary tract interventions (including nephrostomy tube placement, ureteral dilation, stone removal) Venous interventions: intrathoracic and PRODUCT SAFETY EXPERT intervention PT/INR < 1.5 - 1.8 (if arterial access, femoral: INR < 1.8, radial: INR < 2.2) Platelets > 50,000/mcL (Consider transfusing platelets if <50,000/mcL) If patient with Chronic Liver Disease (based on expert opinion): PT/INR < 2.5 (Give Vitamin K 10mg infusion if INR >2.5) Platelets > 30,000/mcL (Transfuse platelets if <30,000/mcL in patients with a large spleen) Fibrinogen > 100mg/dL (Consider cryoprecipitate if <100mg/dL) [facility] Steffany-procedure anticoagulant/antiplatelet guideline (pending P&T review 10/2020): Medication LOW Bleeding Risk^ HIGH Bleeding Risk^ Reinitiation Abciximab (ReoPro ) Hold 24 hrs before procedure Hold 24 hrs before procedure Patient undergoing PCI or within immediate periprocedural period from cardiac intervention; use multidisciplinary, shared decision-making Apixaban (Eliquis ) Do not hold CrCl > 50mL/min: Hold 4 doses CrCl < 30-50mL/min: Hold 6 doses 24 hrs Aspirin OR Aspirin/Dipyridamole (Aggrenox ) Holding strategy for aspirin requires patient-specific approach; for high risk or complex cardiovascular cases, multidisciplinary, shared decision-making is suggested Do not hold Hold for 3-5 days (assumes multidisciplinary evaluation and agreement to interrupt therapy) Resume the day after procedure Argatroban (Acova ) Do not hold Hold 2-4 hrs: check aPTT 4-6 hrs Betrixaban (Bevyxxa ) Do not hold Hold for 3 doses 24 hrs Bivalirudin (Angiomax ) Do not hold Hold 2-4 hrs: check aPTT 4-6 hrs Cangrelor (Kengreal ) Defer procedure until therapy completed; if emergent, multidisciplinary discussion with Cardiology is recommended Defer procedure until therapy completed; if emergent, multidisciplinary discussion with Cardiology is recommended Patient undergoing PCI or within immediate periprocedural period from cardiac intervention; Use multidisciplinary, shared-decision making Cilostazol (Pletal ) Do not hold Do not hold N/A Clopidogrel (Plavix ) Do not hold Hold for 5 days before procedure 75mg Dose: 6 hrs after procedure Loading Dose (300-600mg): 24 hrs after procedure Dabigatran (Pradaxa ) Do not hold CrCl > 50mL/min: Hold 4 doses CrCl < 30-50mL/min: Hold 6-8 doses Consider checking thrombin time with impaired renal function 24 hrs Edoxaban (Savaysa ) Do not hold Hold for 2 doses 24 hrs Eptifibatide (Integrilin ) Hold 4-8 hrs before procedure Hold 4-8 hrs before procedure Patient undergoing PCI or within immediate periprocedural period from cardiac intervention; Use multidisciplinary, shared decision-making Fondaparinux (Arixtra ) Do not hold CrCl > 50mL/min: Hold 2-3 Days CrCl < 50mL/min: Hold 3-5 days 24 hrs LMWH: Enoxaparin (Lovenox ), Dalteparin (Fragmin ) Do not hold Check anti-Xa level if renal function impaired Prophylactic Enoxaparin: Hold 1 dose Therapeutic Enoxaparin: Hold 2 doses or 24 hrs Dalteparin: Hold 1 dose 12 hrs NSAIDS (short-, intermediate-, and long-acting) Do not hold No recommendations N/A Prasugrel (Effient ) Do not hold Hold for 7 days before procedure Resume the day after the procedure Rivaroxaban (Xarelto ) Do not hold CrCl > 50mL/min: Hold 2 doses CrCl 30-50mL/min: Hold 2 doses CrCl < 15-30mL/min: Hold 3 doses 24 hrs Ticagrelor (Brilinta ) Do not hold Hold for 5 days before procedure Resume the day after the procedure Tirofiban (Aggrastat ) Hold 4-8 hrs before procedure Hold 4-8 hrs before procedure Patient undergoing PCI or within immediate periprocedural period from cardiac intervention; Use multidisciplinary, shared decision-making Unfractionated Heparin Do not hold IV Heparin: Hold 4-6 hrs before procedure; check aPTT or anti-Xa level SubQ Heparin: Hold 6 hrs before procedure 6-8 hrs Warfarin (Coumadin ) Target INR < 3 Hold 5 days until INR < 1.8 Low Bleeding Risk: N/A or same day for bridged patients High Bleeding Risk: Resume day after procedure; Consider bridging after procedure for high thrombosis risk cases; Use multidisciplinary, shared-decision making to balance bleeding vs. thrombotic risks. [facility] 10-18-2024 Consult note Associated Order (s): IP CONSULT TO INTERVENTIONAL RADIOLOGY Images from the original note were not included. Vascular & Interventional Radiology Provided By [facility] (Diagnostic Radiology, Interventional and Neurointerventional Radiology and Vascular Medicine) Interventional Radiology Department @ : [phone] CT Procedures @ : [phone] [place] Procedures @ : [phone] [facility] clinic @ : [phone] [email or web address] [facility] SALES ORDER COORDINATOR DIRECTORY The consult was reviewed. The patient's chart was reviewed. The patient's H&P was reviewed. The patient will be scheduled for the requested RLQ abscess drain placement procedure. Procedure date and time TBD by the Control Desk per the designated modality with corresponding contact numbers as noted above, after anticoagulant/antiplatelet medications have been reviewed and pre-procedural recommendations have been met per guidelines below. Please refer to the procedure note section for preliminary procedure details as well as the imaging section for the final procedure report. Pertinent image (if applicable): Pertinent labs are as follows: Results from last 7 days Lab Units 10/18/24 0732 INR 1.3* No results found for: PTT Lab Results Component Value Date PLT 325 10/18/2024 Lab Results Component Value Date BUN 22 10/18/2024 Lab Results Component Value Date CREATININE 1.11 10/18/2024 Patient's allergies are as follows: Allergies as of 10/17/2024 (No Known Allergies) VIR Steffany-procedure lab value guideline: Table 1. LOW Bleeding Risk Laboratory Guidelines Low Bleeding Risk Procedures Target Laboratory Values3 Bone Marrow Biopsy [Platelet Count - N/A] Catheter exchanges (gastrostomy, biliary, nephrostomy, abscess, including gastrostomy/gastrojejunostomy conversions) CVC tunneled >/= 8 Fr* Diagnostic venography and select venous interventions: pelvis and extremities Dialysis shunt interventions IVC filter placement and removal Non-tunneled chest tube placement for pleural effusion Non-tunneled venous access and removal (including PICC placement) and Tunneled venous access </= 7 Fr Paracentesis Peripheral nerve blocks, joint, and musculoskeletal injections Sacroiliac joint injection and sacral lateral branch blocks Superficial abscess drainage or biopsy (palpable lesion, lymph node, soft tissue, breast, thyroid) Thoracentesis Trans jugular liver biopsy Trigger point injections including piriformis Tunneled drainage catheter placement* PT/INR < 2.0 - 3.0 Platelets > 20,000/mcL (Consider transfusing platelets if <20,000/mcL) If patient with Chronic Liver Disease (based on expert opinion): PT/INR < 3.0 (Consider Vitamin K infusion if INR >3.0) Platelets > 20,000/mcL (Transfuse platelets if <20,000/mcL in patients with a large spleen) Fibrinogen > 100mg/dL (Consider cryoprecipitate if <100mg/dL) *If on Direct Oral Anticoagulant (DOAC), follow HIGH Bleeding Risk recommendations in Table 2 and Table 3 Table 2. HIGH Bleeding Risk Laboratory Guidelines: HIGH Bleeding Risk Procedures Target Laboratory Values3 Ablations: solid organs, bone, soft tissue, lung Arterial diagnostic interventions: aortic, pelvic, mesenteric, peripheral Biliary interventions (including cholecystostomy tube placement) Catheter directed thrombolysis/thrombectomy- DVT, PE, portal vein (Highly case dependent) Deep abscess drainage (e.g., lung parenchyma, abdominal, pelvic, retroperitoneal) Deep non organ biopsies (e.g., spine, soft tissue in intra-abdominal, retroperitoneal, pelvic compartments) Gastrostomy/gastrojejunostomy placement IVC filter removal complex Lumbar puncture Lymphangiography Portal vein interventions Solid organ biopsies Spine procedures with risk of spinal or epidural hematoma (e.g., kyphoplasty, vertebroplasty, epidural injections, facet blocks) Trans jugular intrahepatic portosystemic shunt Port placement/removal (Buried) Urinary tract interventions (including nephrostomy tube placement, ureteral dilation, stone removal) Venous interventions: intrathoracic and [employer]ODUCT SAF[employer]Y EXPERT intervention PT/INR < 1.5 - 1.8 (if arterial access, femoral: INR < 1.8, radial: INR < 2.2) Platelets > 50,000/mcL (Consider transfusing platelets if <50,000/mcL) If patient with Chronic Liver Disease (based on expert opinion): PT/INR < 2.5 (Give Vitamin K 10mg infusion if INR >2.5) Platelets > 30,000/mcL (Transfuse platelets if <30,000/mcL in patients with a large spleen) Fibrinogen > 100mg/dL (Consider cryoprecipitate if <100mg/dL) VIR Steffany-procedure anticoagulant/antiplatelet guideline (pending P&T review 10/2020): Medication LOW Bleeding Risk^ HIGH Bleeding Risk^ Reinitiation Abciximab (ReoPro ) Hold 24 hrs before procedure Hold 24 hrs before procedure Patient undergoing PCI or within immediate periprocedural period from cardiac intervention; use multidisciplinary, shared decision-making Apixaban (Eliquis ) Do not hold CrCl > 50mL/min: Hold 4 doses CrCl < 30-50mL/min: Hold 6 doses 24 hrs Aspirin OR Aspirin/Dipyridamole (Aggrenox ) Holding strategy for aspirin requires patient-specific approach; for high risk or complex cardiovascular cases, multidisciplinary, shared decision-making is suggested Do not hold Hold for 3-5 days (assumes multidisciplinary evaluation and agreement to interrupt therapy) Resume the day after procedure Argatroban (Acova ) Do not hold Hold 2-4 hrs: check aPTT 4-6 hrs Betrixaban (Bevyxxa ) Do not hold Hold for 3 doses 24 hrs Bivalirudin (Angiomax ) Do not hold Hold 2-4 hrs: check aPTT 4-6 hrs Cangrelor (Kengreal ) Defer procedure until therapy completed; if emergent, multidisciplinary discussion with Cardiology is recommended Defer procedure until therapy completed; if emergent, multidisciplinary discussion with Cardiology is recommended Patient undergoing PCI or within immediate periprocedural period from cardiac intervention; Use multidisciplinary, shared-decision making Cilostazol (Pletal ) Do not hold Do not hold N/A Clopidogrel (Plavix ) Do not hold Hold for 5 days before procedure 75mg Dose: 6 hrs after procedure Loading Dose (300-600mg): 24 hrs after procedure Dabigatran (Pradaxa ) Do not hold CrCl > 50mL/min: Hold 4 doses CrCl < 30-50mL/min: Hold 6-8 doses Consider checking thrombin time with impaired renal function 24 hrs Edoxaban (Savaysa ) Do not hold Hold for 2 doses 24 hrs Eptifibatide (Integrilin ) Hold 4-8 hrs before procedure Hold 4-8 hrs before procedure Patient undergoing PCI or within immediate periprocedural period from cardiac intervention; Use multidisciplinary, shared decision-making Fondaparinux (Arixtra ) Do not hold CrCl > 50mL/min: Hold 2-3 Days CrCl < 50mL/min: Hold 3-5 days 24 hrs LMWH: Enoxaparin (Lovenox ), Dalteparin (Fragmin ) Do not hold Check anti-Xa level if renal function impaired Prophylactic Enoxaparin: Hold 1 dose Therapeutic Enoxaparin: Hold 2 doses or 24 hrs Dalteparin: Hold 1 dose 12 hrs NSAIDS (short-, intermediate-, and long-acting) Do not hold No recommendations N/A Prasugrel (Effient ) Do not hold Hold for 7 days before procedure Resume the day after the procedure Rivaroxaban (Xarelto ) Do not hold CrCl > 50mL/min: Hold 2 doses CrCl 30-50mL/min: Hold 2 doses CrCl < 15-30mL/min: Hold 3 doses 24 hrs Ticagrelor (Brilinta ) Do not hold Hold for 5 days before procedure Resume the day after the procedure Tirofiban (Aggrastat ) Hold 4-8 hrs before procedure Hold 4-8 hrs before procedure Patient undergoing PCI or within immediate periprocedural period from cardiac intervention; Use multidisciplinary, shared decision-making Unfractionated Heparin Do not hold IV Heparin: Hold 4-6 hrs before procedure; check aPTT or anti-Xa level SubQ Heparin: Hold 6 hrs before procedure 6-8 hrs Warfarin (Coumadin ) Target INR < 3 Hold 5 days until INR < 1.8 Low Bleeding Risk: N/A or same day for bridged patients High Bleeding Risk: Resume day after procedure; Consider bridging after procedure for high thrombosis risk cases; Use multidisciplinary, shared-decision making to balance bleeding vs. thrombotic risks. [facility] SURGICAL HISTORY & PHYSICAL/CONSULTATION NOTE ======== SURGICAL PROBLEM Perforated appendicitis with abscess ASSESSMENT & PLAN/ACTIVE MEDICAL PROBLEMS: Perforated appendicitis with abscess WBC 17.7, afebrile, HDS Repeat CT abdomen pelvis pending NPO, IVF, Zosyn IR consulted for aspiration and possible drain placement ID consulted per primary team Pain control Will need interval appendectomy INCIDENTAL FINDINGS: N/A. CHIEF COMPLAINT: Perforated appendicitis HISTORY OF PRESENT ILLNESS / INJURY (HPI): Sofya is a 68-year-old male with a past medical history of hypertension who initially presented to [facility] on 10/10/2024 with perforated appendicitis. He was treated conservatively with IV antibiotics. A follow-up CT was obtained on 10/17 that revealed a intra-abdominal abscess. He was then transferred to [facility] for higher care. He was admitted under the [facility] service, general surgery was consulted for evaluation. PAST MEDICAL HISTORY (PMH): History reviewed. No pertinent past medical history. History reviewed. No pertinent surgical history. Social History Tobacco Use Smoking status: Never Smokeless tobacco: Never Vaping Use Vaping status: Never Used History reviewed. No pertinent family history. MEDICATIONS: No current facility-administered medications on file prior to encounter. No current outpatient medications on file prior to encounter. ALLERGIES: No Known Allergies REVIEW OF SYSTEMS: COVID19 Screen: Negative for fever, cough, SOB, exposure. Constitutional Symptoms: Negative for unexplained falls, weight loss Eyes: Negative for eye pain or vision changes Ears, Nose, Mouth, Throat: Negative for rhinorrhea, nasal pain, dysphagia, hoarseness Cardiovascular: Negative for chest pain, orthopnea, edema Respiratory: Negative for cough, shortness of breath Gastrointestinal: + Abdominal pain Genitourinary: Negative for dysuria, hematuria Musculoskeletal: Negative for pain, joint edema Skin/Breast: Negative for rash, itching, lesions Neurological: Negative for paresthesia, paralysis, loss of bowel or bladder control, loss of consciousness Psychiatric: Negative for depression, anxiety, or suicidal ideations Endocrine: Negative for heat/cold intolerance, polydipsia, polyphagia, polyuria Hematologic/Lymphatic: Negative for anticoagulant use, antiplatelet use, family hx of clotting or bleeding disorders Allergic/Immunologic: Allergies reviewed, no use of immunosuppressants or active chemotherapy Other than the above items, the remainder of a complete review of systems is otherwise negative. PHYSICAL EXAM: BP 128/74 (Patient Position: Sitting) Pulse 82 Temp 98.5 F (36.9 C) (Oral) Resp 16 Ht 5' 8 Wt 87.5 kg (192 lb 14.4 oz) SpO2 97% BMI 29.33 kg/m Body mass index is 29.33 kg/m . GENERAL: Appears age appropriate. No acute distress. NEUROLOGICAL: Alert and oriented X 3. Follows commands. No focal neurologic deficits noted. Head: Atraumatic, normocephalic. Throat: phonation normal CARDIOVASCULAR: Regular rate and rhythm. No peripheral edema noted. RESPIRATORY: Respiratory effort unlabored without use of accessory muscles. ABDOMINAL: Rounded, RLQ TTP, softly distended. No guarding or peritoneal signs. GENITOURINARY: Normal genitalia for age without lesion or trauma. Rectal exam - defer MUSCULOSKELETAL: Extremities atraumatic without gross deformity x4. SKIN: Skin warm and dry. IMAGING STUDIES: I have reviewed the following: No imaging. LABORATORY STUDIES: Lab Results Component Value Date WBC 17.72 (H) 10/17/2024 HGB 12.5 (L) 10/17/2024 HCT 37.7 (L) 10/17/2024 MCV 95.9 10/17/2024 PLT 359 10/17/2024 RBC 3.93 (L) 10/17/2024 Lab Results Component Value Date GLUCOSE 111 (H) 10/17/2024 CALCIUM 9.4 10/17/2024 NA 136 10/17/2024 K 4.3 10/17/2024 CL 99 10/17/2024 BUN 25 10/17/2024 CREATININE 1.12 10/17/2024 Lab Results Component Value Date ALT 20 10/17/2024 AST 24 10/17/2024 ALKPHOS 65 10/17/2024 BILITOT 0.3 10/17/2024 Cosigned by Facundo Woods MD at 10/18/2024 10:45 AM EST Associated attestation - Facundo Woods MD - 10/18/2024 10:45 AM EST Patient was independently seen and examined. I have independently reviewed the patient's imaging and laboratory data. I have reviewed the below note from Akil Corrales CNP and agree with their documented history, exam, and assessment and plan for all diagnoses, with the following addendum. An independent history and physical exam were personally collected by myself and I agree with the documented findings from the nurse practitioner, in addition to any changes or affirmations I document here in my subsequent note. I personally performed a substantive portion of the visit independently, including obtaining a history, performing a physical exam. I performed a substantive part of the medical decision making noted. Furthermore even though we both were involved with evaluating this patient today, my participation and time spent has exceeded 51% of the total time spent. The patient is a 68 year old male who was transferred from [facility] for perforated appendicitis. The patient was initially admitted back on 10/11. He has been receiving IV antibiotics since that time and surgery was following. I am not able to review the patient's initial imaging, though reports mention suggestion of perforated appendicitis without abscess formation. The surgeon there elected to treat with antibiotics and follow to see if an abscess developed. The patient had been having improvement but his WBC began to rise and so they repeated CT, which demonstrated abscess formation. For reasons unclear, their interventional radiology is not able to place a drain and so the patient was transferred here. The patient reports his pain is currently controlled and he is feeling better than his initial presentation. Blood work obtained here shows leukocytosis up to 17.7 and CTAP showing abscess along the right lower quadrant and pericolic gutter (I have personally reviewed these images). With the abscess that has now developed I agree with IR drain placement for source control. Will ideally cool things down and then we could consider an interval appendectomy further down the line once inflammation resolves. The degree of inflammation that is present now increases risk of inadvertent enterotomies and potential injury to other structures, and would likely require a resection rather than simple appendectomy. Will continue to follow. documented in this encounter [facility] 10-18-2024 Note [facility] PROGRESS NOTE Assessment and Plan Sofya Cabrera is a 68 y.o. male patient of No primary care provider on file. With past medical history of hypertension who presented to [facility] on 10/17/2024 as a transfer from [facility] for higher level of care. Patient initially presented on 10/10/2024 and was found to have perforated appendix. Perforated appendix, with concern for subsequent abscess Right lower quadrant pain, in setting of above Leukocytosis CT Abdomen: Acute perforated appendicitis with multiple developing intraabdominal abscess WBC 17.72>15.98 IV Zosyn ESR 55, CRP 151 NPO Consult Surgery Consult Infectious Disease PRN Pain Management Hypertension Continue lisinopril Anemia Hgb 11.7 Transfuse for Hgb <7 Continue to trend BPH Incidental finding on CT abdomen of enlarged prostate Follow up outpatient Overweight BMI 29.33 Encourage diet and lifestyle modifications Resolved acute medical issues Discharge Planning Medically Stable for Discharge Date: 10/20/24 Patient requires continued hospitalization due to: IR, Surgery, ID, IV antibiotics Discharge Location: Home Quality Measures DVT Prophylaxis: SCDs Rios Catheter: absent Code Status Full Primary Contact Information Subjective Patient resting in bed, currently without pain. Patient states when he has pain that tylenol helps. Objective BP 118/70 Pulse 84 Temp 97.3 degrees F (36.3 degrees C) (Oral) Resp 18 Ht 5' 8 Wt 87.5 kg (192 lb 14.4 oz) SpO2 93% BMI 29.33 kg/m Physical Examination General Appearance: alert; well appearing; in no acute distress HEENT: Head- normocephalic; Eyes- EOMI, sclera anicteric; Throat- mucous membranes moist Cardiovascular: regular rate and rhythm; normal S1, S2; no murmurs, rubs, clicks or gallops; peripheral edema absent Respiratory: lungs clear to auscultation; without wheezes, rales or rhonchi; on room air Abdomen: Distended Neurological: oriented x 3; normal speech; no focal findings or movement disorder noted Musculoskeletal: no significant deformity or tenderness to palpation Skin: normal coloration Psych: normal mood and affect AUTHENTICATED BY ZULMA ARANGO, ON 10/18/2024 09:26:00 [facility] 10-18-2024 Consult note Formatting of th is note is different from the original. [facility] SURGICAL HISTORY & PHYSICAL/CONSULTATION NOTE ======== SURGICAL PROBLEM Perforated appendicitis with abscess ASSESSMENT & PLAN/ACTIVE MEDICAL PROBLEMS: Perforated appendicitis with abscess WBC 17.7, afebrile, HDS Repeat CT abdomen pelvis pending NPO, IVF, Zosyn IR consulted for aspiration and possible drain placement ID consulted per primary team Pain control Will need interval appendectomy INCIDENTAL FINDINGS: N/A. CHIEF COMPLAINT: Perforated appendicitis HISTORY OF PRESENT ILLNESS / INJURY (HPI): Sofya is a 68-year-old male with a past medical history of hypertension who initially presented to [facility] on 10/10/2024 with perforated appendicitis. He was treated conservatively with IV antibiotics. A follow-up CT was obtained on 10/17 that revealed a intra-abdominal abscess. He was then transferred to [facility] for higher care. He was admitted under the [facility] service, general surgery was consulted for evaluation. PAST MEDICAL HISTORY (PMH): History reviewed. No pertinent past medical history. History reviewed. No pertinent surgical history. Social History Tobacco Use Smoking status: Never Smokeless tobacco: Never Vaping Use Vaping status: Never Used History reviewed. No pertinent family history. MEDICATIONS: No current facility-administered medications on file prior to encounter. No current outpatient medications on file prior to encounter. ALLERGIES: No Known Allergies REVIEW OF SYSTEMS: COVID19 Screen: Negative for fever, cough, SOB, exposure. Constitutional Symptoms: Negative for unexplained falls, weight loss Eyes: Negative for eye pain or vision changes Ears, Nose, Mouth, Throat: Negative for rhinorrhea, nasal pain, dysphagia, hoarseness Cardiovascular: Negative for chest pain, orthopnea, edema Respiratory: Negative for cough, shortness of breath Gastrointestinal: + Abdominal pain Genitourinary: Negative for dysuria, hematuria Musculoskeletal: Negative for pain, joint edema Skin/Breast: Negative for rash, itching, lesions Neurological: Negative for paresthesia, paralysis, loss of bowel or bladder control, loss of consciousness Psychiatric: Negative for depression, anxiety, or suicidal ideations Endocrine: Negative for heat/cold intolerance, polydipsia, polyphagia, polyuria Hematologic/Lymphatic: Negative for anticoagulant use, antiplatelet use, family hx of clotting or bleeding disorders Allergic/Immunologic: Allergies reviewed, no use of immunosuppressants or active chemotherapy Other than the above items, the remainder of a complete review of systems is otherwise negative. PHYSICAL EXAM: BP 128/74 (Patient Position: Sitting) Pulse 82 Temp 98.5 F (36.9 C) (Oral) Resp 16 Ht 5' 8 Wt 87.5 kg (192 lb 14.4 oz) SpO2 97% BMI 29.33 kg/m Body mass index is 29.33 kg/m . GENERAL: Appears age appropriate. No acute distress. NEUROLOGICAL: Alert and oriented X 3. Follows commands. No focal neurologic deficits noted. Head: Atraumatic, normocephalic. Throat: phonation normal CARDIOVASCULAR: Regular rate and rhythm. No peripheral edema noted. RESPIRATORY: Respiratory effort unlabored without use of accessory muscles. ABDOMINAL: Rounded, RLQ TTP, softly distended. No guarding or peritoneal signs. GENITOURINARY: Normal genitalia for age without lesion or trauma. Rectal exam - defer MUSCULOSKELETAL: Extremities atraumatic without gross deformity x4. SKIN: Skin warm and dry. IMAGING STUDIES: I have reviewed the following: No imaging. LABORATORY STUDIES: Lab Results Component Value Date WBC 17.72 (H) 10/17/2024 HGB 12.5 (L) 10/17/2024 HCT 37.7 (L) 10/17/2024 MCV 95.9 10/17/2024 PLT 359 10/17/2024 RBC 3.93 (L) 10/17/2024 Lab Results Component Value Date GLUCOSE 111 (H) 10/17/2024 CALCIUM 9.4 10/17/2024 NA 136 10/17/2024 K 4.3 10/17/2024 CL 99 10/17/2024 BUN 25 10/17/2024 CREATININE 1.12 10/17/2024 Lab Results Component Value Date ALT 20 10/17/2024 AST 24 10/17/2024 ALKPHOS 65 10/17/2024 BILITOT 0.3 10/17/2024 Cosigned by Facundo Woods MD at 10/18/2024 10:45 AM EST Associated attestation - Facundo Woods MD - 10/18/2024 10:45 AM EST Patient was independently seen and examined. I have independently reviewed the patient's imaging and laboratory data. I have reviewed the below note from Akil Corrales CNP and agree with their documented history, exam, and assessment and plan for all diagnoses, with the following addendum. An independent history and physical exam were personally collected by myself and I agree with the documented findings from the nurse practitioner, in addition to any changes or affirmations I document here in my subsequent note. I personally performed a substantive portion of the visit independently, including obtaining a history, performing a physical exam. I performed a substantive part of the medical decision making noted. Furthermore even though we both were involved with evaluating this patient today, my participation and time spent has exceeded 51% of the total time spent. The patient is a 68 year old male who was transferred from [facility] for perforated appendicitis. The patient was initially admitted back on 10/11. He has been receiving IV antibiotics since that time and surgery was following. I am not able to review the patient's initial imaging, though reports mention suggestion of perforated appendicitis without abscess formation. The surgeon there elected to treat with antibiotics and follow to see if an abscess developed. The patient had been having improvement but his WBC began to rise and so they repeated CT, which demonstrated abscess formation. For reasons unclear, their interventional radiology is not able to place a drain and so the patient was transferred here. The patient reports his pain is currently controlled and he is feeling better than his initial presentation. Blood work obtained here shows leukocytosis up to 17.7 and CTAP showing abscess along the right lower quadrant and pericolic gutter (I have personally reviewed these images). With the abscess that has now developed I agree with IR drain placement for source control. Will ideally cool things down and then we could consider an interval appendectomy further down the line once inflammation resolves. The degree of inflammation that is present now increases risk of inadvertent enterotomies and potential injury to other structures, and would likely require a resection rather than simple appendectomy. Will continue to follow. [facility] 10-17-2024 Plan of care note Problem: Actual or potential alteration in health Goal: Absence of healthcare acquired conditions Outcome: Partially Met Goal: Knowledge of Interdisciplinary Plan of Care Outcome: Partially Met Goal: Knowledge of Enviroment Outcome: Partially Met [facility] 10-17-2024 History and physical note [facility] HISTORY AND PHYSICAL -- [facility] Patient Name: Sofya Cabrera : 1955 MR #: [id number] Admit Date: 10/17/2024 Physicians: No primary care provider on file. (Family); Honey Shi MD (Referring) Sofya Cabrera is a 68 y.o. male patient of No primary care provider on file. With past medical history of hypertension who presented to [facility] on 10/17/2024 as a transfer from [facility] for higher level of care. Patient initially presented on 10/10/2024 and was found to have perforated appendix. Follow-up CT abdomen from 10/17/2024 revealed intra-abdominal abscess, patient was transferred for source control by interventional radiology. Perforated appendix, with concern for subsequent abscess Right lower quadrant pain, in setting of above Presents as transfer for higher level of care including percutaneous abscess drainage by interventional radiology No records including images available at this time. Will repeat CT abdomen pelvis to facilitate source control Broad-spectrum coverage with Zosyn Will consult infectious disease for assistance with antibiotics management Check ESR, CRP, procalcitonin N.p.o. at midnight Pain control with as needed Tylenol Hypertension Continue home lisinopril 40 mg daily Limited medical records Patient hospitalized for approximately 7 days No medical records at this time Pending attempts to obtain hospitalization medical records Residence prior to admission: house or apartment Was patient transferred from outlying hospital or ED yes -- care site [facility] Quality Measures DVT Prophylaxis: SCDs Rios Catheter: absent Medication Reconciliation: Verified Admitted with these risk variables: Please see assessment and plan for further details. Estimated Date of Discharge greater than 2 midnights Code Status Full Code; code status verified on 10/17/2024 with confirmed by patient medical records Chief Complaint perforated appendix with concern for abdominal abscess History of Present Illness Sofya Cabrera is a 68 y.o. male patient of No primary care provider on file. With no significant past medical history who presented to [facility] on 10/17/2024 as a transfer from [facility] for higher level of care, with perforated appendix and concern for intra-abdominal abscess needing drainage by interventional radiology. Patient seen and examined upon arrival. Comfortably seated in bed. He states that approximately 9 days ago, he started feeling right lower quadrant abdominal discomfort, after eating lunch. This progressively worsened; with some worsening associated anorexia. No nausea or vomiting. He googled and was concerned with appendix. He presented to the emergency department and this was confirmed by CT imaging. Patient states that he has been receiving antibiotics treatment at [facility], however, he was transferred for percutaneous tube drainage. He denies fever, chills, lightheadedness, or dyspnea. Other signs and symptoms are concerning for systemic infection reviewed and negative. Patient states that his pain has been well-controlled with as needed Tylenol. Agreeable with continued management including involving interventional radiology to assist with source control. Past Medical History No past medical history on file. Past Surgical History No past surgical history on file. Family History No family history on file. Social History Social History Tobacco Use Smoking Status Not on file Smokeless Tobacco Not on file Social History Substance and Sexual Activity Alcohol Use Not on file Social History Substance and Sexual Activity Drug Use Not on file Allergy Information I have reviewed the patient's allergies. Patient has no allergy information on record. Home Medications Home medications were reviewed. Review Of Systems All relevant systems have been reviewed and are negative except as noted in HPI or below Physical Examination BP (!) 159/91 (BP Location: Left arm, Patient Position: Sitting) Pulse 82 Temp 98.2 F (36.8 C) (Oral) Resp 16 SpO2 91% General Appearance: alert; well appearing; in no acute distress HEENT: Head- normocephalic; Eyes- EOMI, sclera anicteric; Throat- mucous membranes moist Cardiovascular: regular rate and rhythm; normal S1, S2; no murmurs, rubs, clicks or gallops; peripheral edema absent Respiratory: lungs clear to auscultation; without wheezes, rales or rhonchi; on room air Abdomen: soft, non-distended, bowel sounds present in all 4 quadrants, minimal pain in the right lower quadrant reported with deep palpation Neurological: oriented x 3; normal speech; no focal findings or movement disorder noted Musculoskeletal: no significant deformity or tenderness to palpation Skin: normal coloration Psych: normal mood and affect ---- The note was dictated using [email or web address] dictation system. The voice recognition software is inherently subject to errors including those of syntax and sound-alike substitutions which may escape proofreading. In such instances, original meaning may be extrapolated by contextual derivation. Reach out to me via [employer] Chat for clarification, if needed. [facility] Work Phone: 10-17-2024 Note HMS HISTORY AND PHYS ICAL -- [facility] Patient Name: Sofya Cabrera : 1955 MR #: [id number] Admit Date: 10/17/2024 Physicians: No primary care provider on file. (Family); Honey Shi MD (Referring) Sofya Cabrera is a 68 y.o. male patient of No primary care provider on file. With past medical history of hypertension who presented to [facility] on 10/17/2024 as a transfer from [facility] for higher level of care. Patient initially presented on 10/10/2024 and was found to have perforated appendix. Follow-up CT abdomen from 10/17/2024 revealed intra-abdominal abscess, patient was transferred for source control by interventional radiology. Perforated appendix, with concern for subsequent abscess Right lower quadrant pain, in setting of above Presents as transfer for higher level of care including percutaneous abscess drainage by interventional radiology No records including images available at this time. Will repeat CT abdomen pelvis to facilitate source control Broad-spectrum coverage with Zosyn Will consult infectious disease for assistance with antibiotics management Check ESR, CRP, procalcitonin N.p.o. at midnight Pain control with as needed Tylenol Hypertension Continue home lisinopril 40 mg daily Limited medical records Patient hospitalized for approximately 7 days No medical records at this time Pending attempts to obtain hospitalization medical records Residence prior to admission: house or apartment Was patient transferred from outlying hospital or ED yes -- care site [facility] Quality Measures DVT Prophylaxis: SCDs Rios Catheter: absent Medication Reconciliation: Verified Admitted with these risk variables: Please see assessment and plan for further details. Estimated Date of Discharge greater than 2 midnights Code Status Full Code; code status verified on 10/17/2024 with confirmed by patient medical records Chief Complaint perforated appendix with concern for abdominal abscess History of Present Illness Sofya Cabrera is a 68 y.o. male patient of No primary care provider on file. With no significant past medical history who presented to [facility] on 10/17/2024 as a transfer from [facility] for higher level of care, with perforated appendix and concern for intra-abdominal abscess needing drainage by interventional radiology. Patient seen and examined upon arrival. Comfortably seated in bed. He states that approximately 9 days ago, he started feeling right lower quadrant abdominal discomfort, after eating lunch. This progressively worsened; with some worsening associated anorexia. No nausea or vomiting. He googled and was concerned with appendix. He presented to the emergency department and this was confirmed by CT imaging. Patient states that he has been receiving antibiotics treatment at [facility], however, he was transferred for percutaneous tube drainage. He denies fever, chills, lightheadedness, or dyspnea. Other signs and symptoms are concerning for systemic infection reviewed and negative. Patient states that his pain has been well-controlled with as needed Tylenol. Agreeable with continued management including involving interventional radiology to assist with source control. Past Medical History No past medical history on file. Past Surgical History No past surgical history on file. Family History No family history on file. Social History Social History Tobacco Use Smoking Status Not on file Smokeless Tobacco Not on file Social History Substance and Sexual Activity Alcohol Use Not on file Social History Substance and Sexual Activity Drug Use Not on file Allergy Information I have reviewed the patient's allergies. Patient has no allergy information on record. Home Medications Home medications were reviewed. Review Of Systems All relevant systems have been reviewed and are negative except as noted in HPI or below Physical Examination BP (!) 159/91 (BP Location: Left arm, Patient Position: Sitting) Pulse 82 Temp 98.2 degrees F (36.8 degrees C) (Oral) Resp 16 SpO2 91% General Appearance: alert; well appearing; in no acute distress HEENT: Head- normocephalic; Eyes- EOMI, sclera anicteric; Throat- mucous membranes moist Cardiovascular: regular rate and rhythm; normal S1, S2; no murmurs, rubs, clicks or gallops; peripheral edema absent Respiratory: lungs clear to auscultation; without wheezes, rales or rhonchi; on room air Abdomen: soft, non-distended, bowel sounds present in all 4 quadrants, minimal pain in the right lower quadrant reported with deep palpation Neurological: oriented x 3; normal speech; no focal findings or movement disorder noted Musculoskeletal: no significant deformity or tenderness to palpation Skin: normal color (more content not included)... [facility] 10-17-2024 Nurse Note Released with [facility] to go to [facility]. Condition stable. IV intact. Pt comfortable [facility] 10-17-2024 Nurse Note Released with [facility] to go to [facility]. Condition stable. IV intact. Pt comfortable documented in this encounter [facility] Work Phone: 10-17-2024 Hospital course Narrative Discharge Diagnosis Other acute appendicitis Issues Requiring Follow-Up Acute appendicitis Discharge Meds Medication List START taking these medications furosemide 20 mg tablet; Commonly known as: Lasix; Take 1 tablet (20 mg) by mouth once daily for 3 doses.; Start taking on: October 18, 2024 potassium chloride 20 mEq packet; Commonly known as: Klor-Con; Take 40 mEq by mouth 2 times a day. STOP taking these medications hydroCHLOROthiazide 12.5 mg tablet; Commonly known as: Microzide lisinopril 40 mg tablet Test Results Pending At Discharge Pending Labs Order Current Status Extra Urine Gutiérrez Tube Collected (10/13/24 1722) Extra Urine Gutiérrez Tube Collected (10/11/24 0239) Urinalysis with Reflex Culture and Microscopic In process Urinalysis with Reflex Culture and Microscopic In process Hospital Course 68 y.o. male Who presented to the emergency room for right lower quadrant abdominal pain. On presentation, vital signs grossly within normal meds. Pertinent findings on blood workup; WBC 16,100, and sodium 133. CT scan of the abdomen and pelvis showed findings highly suspicious for an acute perforated appendicitis. Patient was given in the emergency room IV morphine, Zosyn and IV fluids and then admitted to the medical service for further investigation and management. Upon encounter now, patient reports that he is still having the pain. He stated that the morphine did not help him much. He has been having the belly pain for the past 2 days. Mainly in the right lower quadrant. Progressively worsening. No fever or chills. No diarrhea. No nausea or vomiting. During hospital stay, patient would be followed by general surgery. Patient had opted to treat his appendicitis conservatively with IV antibiotics. He would show some improvement but will continue to have a significant leukocytosis. Follow-up CT showed persistent abscess as well as developing new abscesses. Surgery had recommended drainage of these abscesses. Due to the lack of interventional radiology coverage at our hospital, patient would need to be transferred to higher level of care. Patient would be accepted at [facility]. Further management will be done there. Patient will need to continue on IV antibiotics with ciprofloxacin and Flagyl. Further antibiotic recommendations will be determined at accepting facility. 35 minutes total was spent on discharge planning including chart review, medication ordering, and discussion with family and hospital staff. Pertinent Physical Exam At Time of Discharge General: Well appearing HENT: Head: Normocephalic and atraumatic. Mouth: Mucous membranes are moist. Eyes: Pupils are equal, round, and reactive to light. Cardiovascular: Normal rate and regular rhythm. Normal S1, S2. No murmurs, clicks, gallops. Pulmonary: Clear to auscultation bilaterally. No wheezing, rhonchi, or crackles heard. Abdominal: Bowel sounds are normal. Abdomen is tender to palpation of right lower quadrant without rebound tenderness, soft, nontender, slightly distended Skin: No lesions seen Musculoskeletal: Extremities: No edema present. No deformities with no abnormal range of motion Neck supple. Neurological: Mental Status: He is alert and oriented X3 CN II-XII intact. No focal neurologic deficits appreciated. Outpatient Follow-Up No future appointments. Felix Lundy DO documented in this encounter [facility] Work Phone: 10-17-2024 Hospital Discharge instructions Felix Lundy DO - 10/17/2024 7:21 PM EST Patient to continue on IV ciprofloxacin and IV flagyl at [facility] to continue treating acute appendicitis. documented in this encounter [facility] Work Phone: 10-17-2024 Note Formatting of this n ote might be different from the original. CT done but not officially read. By my read, abscess along right side of abdomen with communication to more central area. IR drain should drain most if not all areas and antibiotics should clear up any residual. Informed patient we do not have IR this week. He requested transfer to [place] as closer. Call placed to [facility], spoke to Samantha. Asked xray to upload films and put in as STAT read. Waiting for callback. Patient remains hemodynamically stable with pain in RLQ controlled with tylenol. [facility] Work Phone: 10-17-[address] done but not officially read. By my read, abscess along right side of abdomen with communication to more central area. IR drain should drain most if not all areas and antibiotics should clear up any residual. Informed patient we do not have IR this week. He requested transfer to [place] as closer. Call placed to [facility], spoke to Samantha. Asked xray to upload films and put in as STAT read. Waiting for callback. Patient remains hemodynamically stable with pain in RLQ controlled with tylenol. Associated Problem(s): Other acute appendicitis 68-year-old male with a past medical history of hypertension, who presented to the emergency room for abdominal pain. CT scan of the abdomen and pelvis showed findings highly suspicious for an acute perforated appendicitis. Blood workup showed leukocytosis. I discussed with the radiology staff. We can do the CT but if there is an abscess there is no interventional radiologist to drain this and the patient will need to be transferred. Problem: Pain - Adult Goal: Verbalizes/displays adequate comfort level or baseline comfort level Outcome: Progressing Problem: Safety - Adult Goal: Free from fall injury Outcome: Progressing Problem: Discharge Planning Goal: Discharge to home or other facility with appropriate resources Outcome: Progressing Problem: Chronic Conditions and Co-morbidities Goal: Patient's chronic conditions and co-morbidity symptoms are monitored and maintained or improved Outcome: Progressing Problem: Fall/Injury Goal: Not fall by end of shift Outcome: Progressing Goal: Be free from injury by end of the shift Outcome: Progressing Goal: Verbalize understanding of personal risk factors for fall in the hospital Outcome: Progressing Goal: Verbalize understanding of risk factor reduction measures to prevent injury from fall in the home Outcome: Progressing The patient's goals for the shift include no falls The clinical goals for the shift include ambulate in the halls, have decreased pain and decreased WBC count with morning labs Over the shift, the patient did not make progress toward the following goals. Barriers to progression include . Recommendations to address these barriers include . The patient's goals for the shift include no falls go home The clinical goals for the shift include tolerate advanced diet no falls, labs and vs wdl Problem: Pain - Adult Goal: Verbalizes/displays adequate comfort level or baseline comfort level Outcome: Progressing Problem: Safety - Adult Goal: Free from fall injury Outcome: Progressing Problem: Pain - Adult Goal: Verbalizes/displays adequate comfort level or baseline comfort level Outcome: Progressing The patient's goals for the shift include no falls The clinical goals for the shift include Pain control The patient's goals for the shift include no falls The clinical goals for the shift include Pain control Problem: Pain - Adult Goal: Verbalizes/displays adequate comfort level or baseline comfort level Outcome: Progressing Problem: Safety - Adult Goal: Free from fall injury Outcome: Progressing Problem: Discharge Planning Goal: Discharge to home or other facility with appropriate resources Outcome: Progressing Problem: Chronic Conditions and Co-morbidities Goal: Patient's chronic conditions and co-morbidity symptoms are monitored and maintained or improved Outcome: Progressing Patient is seen with his and daughter. We reviewed his clinical course. He diuresed quite nicely with the Lasix. He states the diarrhea is starting to wan. He has not been drinking that much as he says he feels up fairly quickly. He still has edema in his extremities. I will give him another dose of Lasix tonight. I will add some oral protein supplements. The patient's goals for the shift include no falls The clinical goals for the shift include pain control Problem: Pain - Adult Goal: Verbalizes/displays adequate comfort level or baseline comfort level Outcome: Progressing Problem: Safety - Adult Goal: Free from fall injury Outcome: Progressing Problem: Discharge Planning Goal: Discharge to home or other facility with appropriate resources Outcome: Progressing Problem: Chronic Conditions and Co-morbidities Goal: Patient's chronic conditions and co-morbidity symptoms are monitored and maintained or improved Outcome: Progressing Patient continues afebrile with stable vital signs. He states his discomfort is much better than even this morning. He has begun making urine and it is lightening up in color. He states his abdomen feels a little bit less distended. He is probably getting rid of some of the third space in his retroperitoneum. I discussed again with him the fact that our options at this point would be to operate in which case I think abdominal closure would be very difficult and we would probably put in an ABThera and maintain him in the ICU for a couple of days and abated and then taken back for closure. I told him not operating he is improving but he may still abscess in his abdomen that may get better with antibiotics or could require separate procedure for that. He states he feels better and does not want an operation even if I could close his abdomen. He thinks it will get better because he feels so much better now. We will still maintain him n.p.o. for now and wait and see what his labs look like in the morning. He is also concerned because social services coordinator told him they expected him to be in the hospital for 24 to 48 hours and he thinks that Medicare is going to stop paying after that period of time. I assured him that they will continue to pay as long as it is medically necessary. Problem: Pain - Adult Goal: Verbalizes/displays adequate comfort level or baseline comfort level Outcome: Progressing Problem: Safety - Adult Goal: Free from fall injury Outcome: Progressing Problem: Discharge Planning Goal: Discharge to home or other facility with appropriate resources Outcome: Progressing Problem: Chronic Conditions and Co-morbidities Goal: Patient's chronic conditions and co-morbidity symptoms are monitored and maintained or improved Outcome: Progressing The patient's goals for the shift include pain control The clinical goals for the shift include no falls Over the shift, the patient did not make progress toward the following goals. Barriers to progression include . Recommendations to address these barriers include . Patient went down for CT-guided drain placement. No abscess was noted. The appendix is even that is dilated or air-filled. The radiologist believes that the appendicolith when it moved allowed the appendix itself drain directly into the colon. Now the inflammatory process is just resolving. When I went in to talk with the patient he was just bladder scanned and only had 20 mL in his bladder. He only had 25 that he passed earlier today. He is complaining of intense diarrhea and states he goes to the bathroom multiple times but only a small volume. His white count was up to 19,000 and with no abscess I think there is a good possibility he may have an infectious colitis. I have switched his antibiotics to Cipro Flagyl. We will keep him on 400 every 12 for now but if his creatinine is up much higher tomorrow we will switch switch him to every 24. I have sent stool studies and we will see if he has C. difficile. Nursing, infectious disease and the hospitalist were informed. Problem: Pain - Adult Goal: Verbalizes/displays adequate comfort level or baseline comfort level Outcome: Progressing Problem: Safety - Adult Goal: Free from fall injury Outcome: Progressing Problem: Discharge Planning Goal: Discharge to home or other facility with appropriate resources Outcome: Progressing Problem: Chronic Conditions and Co-morbidities Goal: Patient's chronic conditions and co-morbidity symptoms are monitored and maintained or improved Outcome: Progressing The patient's goals for the shift include pain control The clinical goals for the shift include no falls Over the shift, the patient did not make progress toward the following goals. Barriers to progression include . Recommendations to address these barriers include . Stop by earlier this afternoon and patiently sleeping quite deeply and I did not wake him. He is awake just now when I went in. He states he feels better after sleeping. He states his pain is slowly improving and is still just in his right lower quadrant. His abdomen is slightly more distended. He is just having ice chips. He did pass some flatus. We will continue with the same plan. Patient was seen admitted overnight. Reviewed chart and agree with assessment plan. Problem: Pain - Adult Goal: Verbalizes/displays adequate comfort level or baseline comfort level Outcome: Progressing Problem: Safety - Adult Goal: Free from fall injury Outcome: Progressing Problem: Discharge Planning Goal: Discharge to home or other facility with appropriate resources Outcome: Progressing Problem: Chronic Conditions and Co-morbidities Goal: Patient's chronic conditions and co-morbidity symptoms are monitored and maintained or improved Outcome: Progressing The patient's goals for the shift include The clinical goals for the shift include no falls Over the shift, the patient did not make progress toward the following goals. Barriers to progression include . Recommendations to address these barriers include . Associated Problem(s): Other acute appendicitis 68-year-old male with a past medical history of hypertension, who presented to the emergency room for abdominal pain. CT scan of the abdomen and pelvis showed findings highly suspicious for an acute perforated appendicitis. Blood workup showed leukocytosis. Admit patient to the inpatient medical service with vital signs monitoring. Make the patient NPO. Consult general surgery. Continue with Zosyn 3.375 g IV every 6 hours scheduled. Give Toradol 15 mg IV every 6 hours scheduled. Additional morphine as needed for breakthrough pain. IV fluids normal saline at rate of 75 cc/hour. Repeat CBC and BMP tomorrow. Regarding his home medications, I will hold the hydrochlorothiazide but continue the lisinopril for now. SCDs for DVT prophylaxis Patient is full code Received call from the ER after CT was read which shows probable perforated appendicitis. I have reviewed the CT and would agree this does indeed look perforated just proximal to his appendicolith. It looks like the appendicolith is partially extruded from the appendix but blocking the distal portion where the appendix is dilated air-filled. I have recommended admission to the hospitalist service with IV antibiotics and possible drain placement Umang. I would recommend using Tylenol and Motrin for pain control with narcotics if necessary. If he free perforates this we will take him to surgery. documented in this encounter [facility] Work Phone: 10-17-2024 History of Present illness Narrative Pt reviewed during Care Rounds today and he is not ready for discharge. Per General Surgery, an abdominal abscess could be developing; however, no IR available to perform drain placement so pt could end up needing transferred. If no transfer is needed, pt does plan to return home without needs. Care Transitions will continue to follow as needed. KASSY Ghosh Sofya Cabrera is a 68 y.o. male on day 6 of admission presenting with Other acute appendicitis. Subjective Patient seen and examined at bedside. This is the first date I am seeing the patient. He has been managed in the hospital for the last 6 days for appendicitis with abscess. Does continue to have abdominal pain. General surgery has ordered for repeat CAT scan to reevaluate for persistent abscess and or new developing abscess. Objective Last Recorded Vitals BP 135/84 (BP Location: Right arm, Patient Position: Sitting) Pulse 91 Temp 36.3 C (97.3 F) (Temporal) Resp 16 Wt 87.9 kg (193 lb 12.6 oz) SpO2 95% Intake/Output last 3 Shifts: Intake/Output Summary (Last 24 hours) at 10/17/2024 1412 Last data filed at 10/17/2024 1016 Gross per 24 hour Intake 1100 ml Output 1550 ml Net -450 ml Admission Weight Weight: 90.7 kg (200 lb) (10/11/24 0120) Daily Weight 10/17/24 : 87.9 kg (193 lb 12.6 oz) Image Results CT abdomen wo IV contrast Narrative: Interpreted By: Broderick Meeks, STUDY: CT ABDOMEN WO IV CONTRAST; 10/12/2024 2:43 pm INDICATION: Signs/Symptoms:abscess. COMPARISON: CT dated 10/11/2024 ACCESSION NUMBER(S): [id number] ORDERING CLINICIAN: HONEY SHI TECHNIQUE: Contiguous axial images were obtained at 3mm slice thickness through the lower abdomen and pelvis without intravenous contrast administration. Coronal and sagittal reconstructions at 3 mm slice thickness were performed. FINDINGS: The study is somewhat limited by the lack of intravenous contrast. Visualized portions of the liver LIVER: The liver is within normal limits for appearance, without evidence of focal masses. BILE DUCTS: No definite intra or extrahepatic biliary dilatation is identified. GALLBLADDER: The gallbladder is nondilated. No definite calcified gallstones are seen. PANCREAS: The pancreas is within normal limits for appearance, without evidence of focal masses. SPLEEN: The visualized portion of the spleen is within normal limits for size. No focal splenic mass is seen. ADRENAL GLANDS: A nodule is seen in the right adrenal gland, measuring at up to 2.3 x 1.5 cm in diameter. This measures at less than 10 Hounsfield units in density and is consistent with a lipid rich adenoma. KIDNEYS AND URETERS: There is no hydronephrosis, hydroureter or renal/ ureteral calculus identified bilaterally. Multiple rounded hypodensities are seen from the kidneys bilaterally. These are incompletely evaluated without contrast, but are unchanged from the prior study, and are consistent with cysts. BOWEL: Scattered diverticuli are seen throughout the sigmoid colon. The visualized portions of the colon and small bowel are otherwise within normal limits for course, caliber and appearance, without evidence of wall thickening or obstruction. The appendix is again seen to be dilated, measuring at up to 1.6 cm in diameter, and demonstrates significant periappendiceal inflammatory stranding. This is slightly decreased in size when compared to the prior study, on which it measured at up to 1.8 cm in diameter. VESSELS: Scattered atherosclerotic calcifications are seen throughout the infrarenal abdominal aorta and iliac arteries. The abdominal aorta is within normal limits for course, caliber and appearance, without evidence of aneurysm. PERITONEUM/RETROPERITONEUM/LYMPH NODES: There are several tiny bubbles of extraluminal air identified anteriorly within the upper abdomen and within the right lower quadrant mesentery, and may be secondary to micro perforation. A small amount of free fluid is seen within the pelvis, new relative to the prior study. No gross mesenteric or retroperitoneal lymphadenopathy is identified. BONE AND SOFT TISSUE: There is no evidence of acute fracture identified. No evidence of abdominal wall mass or hernia is identified. Impression: 1. Dilated appendix with significant periappendiceal inflammatory stranding, slightly decreased in size when compared to the prior study. 2. Scattered tiny bubbles of extraperitoneal air within the abdomen, may represent micro perforation. 3. Small amount of free fluid within the pelvis, new relative to the prior study. 4. No evidence of bowel obstruction. Signed by: Broderick Meeks 10/12/2024 3:26 PM Dictation workstation: [id number] Physical exam: General: Well appearing HENT: Head: Normocephalic and atraumatic. Mouth: Mucous membranes are moist. Eyes: Pupils are equal, round, and reactive to light. Cardiovascular: Normal rate and regular rhythm. Normal S1, S2. No murmurs, clicks, gallops. Pulmonary: Clear to auscultation bilaterally. No wheezing, rhonchi, or crackles heard. Abdominal: Bowel sounds are normal. Abdomen is tender to palpation of right lower quadrant without rebound tenderness, soft, nontender, slightly distended Skin: No lesions seen Musculoskeletal: Extremities: No edema present. No deformities with no abnormal range of motion Neck supple. Neurological: Mental Status: He is alert and oriented X3 CN II-XII intact. No focal neurologic deficits appreciated. Relevant Results Assessment/Plan Assessment & Plan Other acute appendicitis 68-year-old male with a past medical history of hypertension, who presented to the emergency room for abdominal pain. CT scan of the abdomen and pelvis showed findings highly suspicious for an acute perforated appendicitis. Blood workup showed leukocytosis. 1. Acute appendicitis: There is associated microperforation possible abscess associated with this. General surgery has been following. Continue antibiotics with IV ciprofloxacin and Flagyl. Patient continues to have persistent leukocytosis associated with this. Patient continues to have abscess associated with this on repeat CAT scan today, we will need to transfer as there is not interventional radiology present in the hospital at this time. 2. CACHORRO: This occurred earlier in hospital stay. Resolved at this point. Creatinine is now less than 1. 3. Leukocytosis: Secondary to appendicitis. Continue IV antibiotics. Follow disease and fever curve. 4. Hypertension: Blood pressure stable at this time. Patient is not on any antihypertensives at this point. Disposition: Continue IV antibiotics. Follow-up on CAT scan read. Will need to transfer patient to higher level of care to be evaluated by interventional radiology for drain placement if abscess is persistent. Felix Lundy DO Sofya Cabrera is a 68 y.o. male on day 6 of admission presenting with Other acute appendicitis. Subjective Patient states that the feeling of fullness in his abdomen continues to improve. Since last evening he has developed increased right lower quadrant discomfort when he moves. He has been tolerating his diet. He is on p.o. Lasix. Objective Physical Exam Cardiovascular: Rate and Rhythm: Normal rate. Pulmonary: Effort: Pulmonary effort is normal. Abdominal: Comments: Abdomen continues distended but it is less firm. He is tender in his right lower quadrant. Musculoskeletal: Comments: Swelling continues in his feet but it is improving. His weight is down to admission weight although I think that is slightly above his dry weight. Neurological: General: No focal deficit present. Mental Status: He is alert. Psychiatric: Comments: Patient became tearful when I told him his white count was up and we would be doing a CAT scan. Last Recorded Vitals Blood pressure 135/84, pulse 91, temperature 36.3 C (97.3 F), temperature source Temporal, resp. rate 16, height 1.74 m (5' 8.5), weight 87.9 kg (193 lb 12.6 oz), SpO2 95%. Intake/Output last 3 Shifts: I/O last 3 completed shifts: In: 1989 (22.6 mL/kg) [P.O.:1090; IV Piggyback:900] Out: 2874 (32.7 mL/kg) [Urine:2875 (0.9 mL/kg/hr)] Weight: 87.9 kg Relevant Results Results for orders placed or performed during the hospital encounter of 10/11/24 (from the past 24 hours) CBC Result Value Ref Range WBC 16.0 (H) 4.4 - 11.3 x10*3/uL nRBC 0.0 0.0 - 0.0 /100 WBCs RBC 3.53 (L) 4.50 - 5.90 x10*6/uL Hemoglobin 11.3 (L) 13.5 - 17.5 g/dL Hematocrit 34.2 (L) 41.0 - 52.0 % MCV 97 80 - 100 fL MCH 32.0 26.0 - 34.0 pg MCHC 33.0 32.0 - 36.0 g/dL RDW 12.3 11.5 - 14.5 % Platelets 275 150 - 450 x10*3/uL Basic metabolic panel Result Value Ref Range Glucose 135 (H) 74 - 99 mg/dL Sodium 135 (L) 136 - 145 mmol/L Potassium 4.0 3.5 - 5.3 mmol/L Chloride 104 98 - 107 mmol/L Bicarbonate 25 21 - 32 mmol/L Anion Gap 10 10 - 20 mmol/L Urea Nitrogen 21 6 - 23 mg/dL Creatinine 0.98 0.50 - 1.30 mg/dL eGFR 83 >60 mL/min/1.73m*2 Calcium 8.5 (L) 8.6 - 10.3 mg/dL Assessment/Plan Assessment & Plan Other acute appendicitis Emotional support was given. I reminded him we did the CT scan previously because we thought he would have an abscess which could be drained which he did not. It has been 5 days and I told him I think this is the abscess developing. We will get a CT scan today with just oral contrast with the possibility of drainage. I will discuss this with radiology. I will be heading out of town this afternoon but Dr. Kim is aware of the patient and is on-call. Honey Shi MD Sofya Cabrera is a 68 y.o. male on day 5 of admission presenting with Other acute appendicitis. Subjective Abdominal pain distention improving somewhat Denies fever chills nausea vomiting No bleeding per the patient Objective Physical Exam General Appearance: AAO x 3, Skin: skin color pink, warm, and dry; no suspicious rashes or lesions Eyes : PERRL, EOM's intact ENT: mucous membranes pink and moist Neck: normocephalic Respiratory: lungs clear to auscultation anteriorly; no wheezing, rhonchi, or crackles. Heart: regular rate and rhythm. Abdomen: distended, positive bowel sounds x4, soft, tender Extremities: mild edema Peripheral pulses: normal x4 extremities Neuro: alert, coherent and conversant, no focal motor deficits Last Recorded Vitals Blood pressure 132/86, pulse 95, temperature 36.5 C (97.7 F), temperature source Temporal, resp. rate 20, height 1.74 m (5' 8.5), weight 88.4 kg (194 lb 14.2 oz), SpO2 98%. Intake/Output last 3 Shifts: I/O last 3 completed shifts: In: 2270 (25.7 mL/kg) [P.O.:1370; IV Piggyback:900] Out: 4550 (51.5 mL/kg) [Urine:4550 (1.4 mL/kg/hr)] Weight: 88.4 kg Relevant Results Scheduled medications acetaminophen, 650 mg, oral, q6h Or acetaminophen, 650 mg, oral, q6h Or acetaminophen, 650 mg, rectal, q6h ciprofloxacin, 400 mg, intravenous, q12h famotidine PF, , , famotidine, 20 mg, intravenous, q12h JAMIR furosemide, 20 mg, oral, Daily metroNIDAZOLE, 500 mg, intravenous, q8h potassium chloride, 40 mEq, oral, BID Continuous medications PRN medications PRN medications: famotidine PF, magnesium hydroxide, ondansetron ODT OR ondansetron, oxyCODONE Results for orders placed or performed during the hospital encounter of 10/11/24 (from the past 24 hours) CBC Result Value Ref Range WBC 14.1 (H) 4.4 - 11.3 x10*3/uL nRBC 0.0 0.0 - 0.0 /100 WBCs RBC 3.71 (L) 4.50 - 5.90 x10*6/uL Hemoglobin 11.9 (L) 13.5 - 17.5 g/dL Hematocrit 35.5 (L) 41.0 - 52.0 % MCV 96 80 - 100 fL MCH 32.1 26.0 - 34.0 pg MCHC 33.5 32.0 - 36.0 g/dL RDW 12.2 11.5 - 14.5 % Platelets 248 150 - 450 x10*3/uL Basic metabolic panel Result Value Ref Range Glucose 115 (H) 74 - 99 mg/dL Sodium 137 136 - 145 mmol/L Potassium 4.0 3.5 - 5.3 mmol/L Chloride 103 98 - 107 mmol/L Bicarbonate 25 21 - 32 mmol/L Anion Gap 13 10 - 20 mmol/L Urea Nitrogen 20 6 - 23 mg/dL Creatinine 1.20 0.50 - 1.30 mg/dL eGFR 65 >60 mL/min/1.73m*2 Calcium 8.7 8.6 - 10.3 mg/dL Assessment/Plan Assessment & Plan Other acute appendicitis 68-year-old male with 1. Acute appendicitis, microperforation, possible infectious colitis 2. Acute kidney injury 3. History of hypertension, stable overall Plan Status post hydration now swelling and edema on Lasix switched to p.o. Follow electrolytes Continue ciprofloxacin and Flagyl IV Surgery on board Due to increasing white count from yesterday, clinically monitor and in case of worsening trend can repeat CT scan to evaluate for recurring or increasing abscess At this point, continue medical treatment Pain well-controlled No nausea vomiting As needed oxycodone, Zofran Advance diet as tolerated Famotidine for GI prophylaxis Held DELANO inhibitor's due to CACHORRO Daily CBC BMP and follow vitals Supportive care and continue current management Monitor clinical progress Urine culture did not show any growth CT was negative, done due to diarrhea Stool culture negative also Overall improving clinically, to follow white count To follow surgery recommendations Carly Joseph MD Sofya Cabrera is a 68 y.o. male on day 5 of admission presenting with Other acute appendicitis. Subjective Patient states he feels about the same. His belly is not as taut but it still feels distended. He is tolerating his diet without nausea. He is still moving his bowels fairly frequently but it is not as watery. He is legs and feet are still swollen. Objective Physical Exam Eyes: Conjunctiva/sclera: Conjunctivae normal. Cardiovascular: Rate and Rhythm: Normal rate. Pulmonary: Effort: Pulmonary effort is normal. Abdominal: General: There is distension. Comments: Not tympanitic Musculoskeletal: General: Swelling present. Neurological: General: No focal deficit present. Mental Status: He is alert. Last Recorded Vitals Blood pressure 159/90, pulse 90, temperature 36.6 C (97.8 F), temperature source Temporal, resp. rate 20, height 1.74 m (5' 8.5), weight 88.4 kg (194 lb 14.2 oz), SpO2 93%. Intake/Output last 3 Shifts: I/O last 3 completed shifts: In: 2270 (25.7 mL/kg) [P.O.:1370; IV Piggyback:900] Out: 4550 (51.5 mL/kg) [Urine:4550 (1.4 mL/kg/hr)] Weight: 88.4 kg Relevant Results Results for orders placed or performed during the hospital encounter of 10/11/24 (from the past 24 hours) CBC Result Value Ref Range WBC 14.1 (H) 4.4 - 11.3 x10*3/uL nRBC 0.0 0.0 - 0.0 /100 WBCs RBC 3.71 (L) 4.50 - 5.90 x10*6/uL Hemoglobin 11.9 (L) 13.5 - 17.5 g/dL Hematocrit 35.5 (L) 41.0 - 52.0 % MCV 96 80 - 100 fL MCH 32.1 26.0 - 34.0 pg MCHC 33.5 32.0 - 36.0 g/dL RDW 12.2 11.5 - 14.5 % Platelets 248 150 - 450 x10*3/uL Basic metabolic panel Result Value Ref Range Glucose 115 (H) 74 - 99 mg/dL Sodium 137 136 - 145 mmol/L Potassium 4.0 3.5 - 5.3 mmol/L Chloride 103 98 - 107 mmol/L Bicarbonate 25 21 - 32 mmol/L Anion Gap 13 10 - 20 mmol/L Urea Nitrogen 20 6 - 23 mg/dL Creatinine 1.20 0.50 - 1.30 mg/dL eGFR 65 >60 mL/min/1.73m*2 Calcium 8.7 8.6 - 10.3 mg/dL Assessment/Plan Assessment & Plan Other acute appendicitis Yesterday the plan had been to discharge him home today with continued oral Lasix to help get rid of some of that fluid. However his white count is up a little today. He states he really feels no differently. I explained I cannot discharge him with a rising white count and so we will keep him until tomorrow and repeat his labs. He understands if his white count is going up we would probably repeat the CT scan to see where he is developing an abscess. He is disappointed but accepts the fact it is best for him to stay. He will continue walking liberally and elevating his legs when he is back in his room. I will give him some more Lasix but I will switch him to pills. His creatinine was up just a little bit. Honey Shi MD Pt reviewed during Care Rounds today and he is not ready for discharge; ADOD is tomorrow/Tuesday so as long as pt can tolerate advancement to his diet. Pt has been up walking the hallways throughout the day. Confirms his desires to return home without needs. We reviewed the IM with no questions/concerns- copy added to pt's chart, copy previously provided to pt and denied another one. No needs identified; Care Transitions will follow as needed. KASSY Ghosh Sofya Cabrera is a 68 y.o. male on day 4 of admission presenting with Other acute appendicitis. Subjective Abdominal pain and distention improving Objective Physical Exam Last Recorded Vitals Blood pressure 127/70, pulse 83, temperature 37 C (98.6 F), temperature source Temporal, resp. rate 18, height 1.74 m (5' 8.5), weight 89.6 kg (197 lb 8 oz), SpO2 96%. IntGeneral Appearance: AAO x 3, Skin: skin color pink, warm, and dry; no suspicious rashes or lesions Eyes : PERRL, EOM's intact ENT: mucous membranes pink and moist Neck: normocephalic Respiratory: lungs clear to auscultation anteriorly; no wheezing, rhonchi, or crackles. Heart: regular rate and rhythm. Abdomen: distended, positive bowel sounds x4, soft, tender Extremities: mild edema Peripheral pulses: normal x4 extremities Neuro: alert, coherent and conversant, no focal motor deficitsake/Output last 3 Shifts: I/O last 3 completed shifts: In: 3847.5 (42.9 mL/kg) [P.O.:1540; I.V.:1307.5 (14.6 mL/kg); IV Piggyback:1000] Out: 3225 (36 mL/kg) [Urine:3225 (1 mL/kg/hr)] Weight: 89.6 kg Relevant Results Scheduled medications acetaminophen, 650 mg, oral, q6h Or acetaminophen, 650 mg, oral, q6h Or acetaminophen, 650 mg, rectal, q6h ciprofloxacin, 400 mg, intravenous, q12h famotidine, 20 mg, intravenous, q12h JAMIR metroNIDAZOLE, 500 mg, intravenous, q8h potassium chloride, 40 mEq, oral, BID Continuous medications PRN medications PRN medications: magnesium hydroxide, ondansetron ODT OR ondansetron, oxyCODONE Results for orders placed or performed during the hospital encounter of 10/11/24 (from the past 24 hours) CBC Result Value Ref Range WBC 12.9 (H) 4.4 - 11.3 x10*3/uL nRBC 0.0 0.0 - 0.0 /100 WBCs RBC 3.72 (L) 4.50 - 5.90 x10*6/uL Hemoglobin 11.9 (L) 13.5 - 17.5 g/dL Hematocrit 35.7 (L) 41.0 - 52.0 % MCV 96 80 - 100 fL MCH 32.0 26.0 - 34.0 pg MCHC 33.3 32.0 - 36.0 g/dL RDW 12.0 11.5 - 14.5 % Platelets 237 150 - 450 x10*3/uL Basic metabolic panel Result Value Ref Range Glucose 118 (H) 74 - 99 mg/dL Sodium 136 136 - 145 mmol/L Potassium 3.7 3.5 - 5.3 mmol/L Chloride 103 98 - 107 mmol/L Bicarbonate 25 21 - 32 mmol/L Anion Gap 12 10 - 20 mmol/L Urea Nitrogen 19 6 - 23 mg/dL Creatinine 1.15 0.50 - 1.30 mg/dL eGFR 69 >60 mL/min/1.73m*2 Calcium 8.8 8.6 - 10.3 mg/dL Magnesium Result Value Ref Range Magnesium 1.61 1.60 - 2.40 mg/dL Assessment/Plan Assessment & Plan Other acute appendicitis 68-year-old male with 1. Acute appendicitis, Microperforation, Possible Infection Colitis 2. Acute Kidney Injury 3. History of Hypertension , Borderline Hypotension 4. CACHORRO, ATN Plan Patient Was Given Hydration Now on Lasix for Slight Volume Overload Replacing Potassium for Hypokalemia As Deemed Appropriate Following Serial BMP Watch Hemoglobin with Hemodilution No Active Bleeding Hemodynamically Stable Follow Surgery Recommendation Continue Medical Treatment On Ciprofloxacin IV and Flagyl Monitor Cultures Patient Will Need Interval Appendectomy Continue Pain Control As Required Patient Did Not Require Much of a Pain Medicine, Will Try to Avoid Narcotics If Not Needed On As Needed Oxycodone, Zofran Advancing Diet from Full Liquids to Soft in the Regular Famotidine for GI Prophylaxis Held DELANO Inhibitor's Due To CACHORRO Daily CBC BMP and Follow Vitals Check Electrolytes and Replace Them Accordingly Carly Joseph MD Sofya Cabrera is a 68 y.o. male on day 4 of admission presenting with Other acute appendicitis. Subjective Patient seen and examined at the bedside this morning He is sitting comfortably at the bedside His abdomen still is distended however he is feeling much better He has been urinating quite a lot Objective Vitals 24HR Heart Rate: [81-87] Temp: [36.5 C (97.7 F)-37 C (98.6 F)] Resp: [16-20] BP: (138-157)/(79-85) Weight: [89.6 kg (197 lb 8 oz)-91.9 kg (202 lb 8 oz)] SpO2: [95 %-97 %] Intake/Output last 3 Shifts: Intake/Output Summary (Last 24 hours) at 10/15/2024 1120 Last data filed at 10/15/2024 1100 Gross per 24 hour Intake 2781.25 ml Output 4425 ml Net -1643.75 ml Physical Exam Constitutional: Appearance: Normal appearance. HENT: Head: Normocephalic and atraumatic. Right Ear: External ear normal. Left Ear: External ear normal. Nose: Nose normal. Mouth/Throat: Mouth: Mucous membranes are moist. Pharynx: Oropharynx is clear. Eyes: Extraocular Movements: Extraocular movements intact. Conjunctiva/sclera: Conjunctivae normal. Pupils: Pupils are equal, round, and reactive to light. Cardiovascular: Rate and Rhythm: Normal rate and regular rhythm. Pulmonary: Effort: Pulmonary effort is normal. Breath sounds: Normal breath sounds. Abdominal: General: Abdomen is flat. There is distension. Palpations: Abdomen is soft. Skin: General: Skin is warm and dry. Neurological: General: No focal deficit present. Mental Status: He is alert and oriented to person, place, and time. Psychiatric: Mood and Affect: Mood normal. Behavior: Behavior normal. Scheduled medications acetaminophen, 650 mg, oral, q6h Or acetaminophen, 650 mg, oral, q6h Or acetaminophen, 650 mg, rectal, q6h ciprofloxacin, 400 mg, intravenous, q12h famotidine, 20 mg, intravenous, q12h JAMIR metroNIDAZOLE, 500 mg, intravenous, q8h potassium chloride, 40 mEq, oral, BID Continuous medications PRN medications PRN medications: magnesium hydroxide, ondansetron ODT OR ondansetron, oxyCODONE Relevant Results Assessment/Plan Assessment & Plan Other acute appendicitis Acute kidney injury: ATN: Resolved Acute appendicitis Hypertension Plan: At this time renal function is returning nicely to his normal Can resume his outpatient normal blood pressure medical regimen Please call with any further issues or needs Donte Becerra DO Sofya Cabrera is a 68 y.o. male on day 4 of admission presenting with Other acute appendicitis. Subjective Patient states he has occasional soreness in his lower abdomen. He still moves his bowels somewhat frequently although it is slowing down. The stools are becoming thicker. He has been afebrile with stable vital signs. He would like some scrambled eggs for breakfast. He still is feeling bloated. He diuresed well with the Lasix. Is still 2 kg over his presenting weight when he presented, which was with a perforated appendicitis and he was feeling bloated at that time. Objective Physical Exam Eyes: Conjunctiva/sclera: Conjunctivae normal. Cardiovascular: Rate and Rhythm: Normal rate. Pulmonary: Effort: Pulmonary effort is normal. Abdominal: Comments: Abdomen is distended and somewhat firm but not tympanitic Musculoskeletal: General: Swelling present. Neurological: General: No focal deficit present. Mental Status: He is alert. Last Recorded Vitals Blood pressure 141/79, pulse 84, temperature 37 C (98.6 F), temperature source Temporal, resp. rate 20, height 1.74 m (5' 8.5), weight 89.6 kg (197 lb 8 oz), SpO2 95%. Intake/Output last 3 Shifts: I/O last 3 completed shifts: In: 3847.5 (42.9 mL/kg) [P.O.:1540; I.V.:1307.5 (14.6 mL/kg); IV Piggyback:1000] Out: 3225 (36 mL/kg) [Urine:3225 (1 mL/kg/hr)] Weight: 89.6 kg Relevant Results Results for orders placed or performed during the hospital encounter of 10/11/24 (from the past 24 hours) Basic metabolic panel Result Value Ref Range Glucose 118 (H) 74 - 99 mg/dL Sodium 136 136 - 145 mmol/L Potassium 4.2 3.5 - 5.3 mmol/L Chloride 102 98 - 107 mmol/L Bicarbonate 25 21 - 32 mmol/L Anion Gap 13 10 - 20 mmol/L Urea Nitrogen 22 6 - 23 mg/dL Creatinine 1.21 0.50 - 1.30 mg/dL eGFR 65 >60 mL/min/1.73m*2 Calcium 9.2 8.6 - 10.3 mg/dL CBC Result Value Ref Range WBC 17.3 (H) 4.4 - 11.3 x10*3/uL nRBC 0.0 0.0 - 0.0 /100 WBCs RBC 3.76 (L) 4.50 - 5.90 x10*6/uL Hemoglobin 12.3 (L) 13.5 - 17.5 g/dL Hematocrit 36.0 (L) 41.0 - 52.0 % MCV 96 80 - 100 fL MCH 32.7 26.0 - 34.0 pg MCHC 34.2 32.0 - 36.0 g/dL RDW 11.9 11.5 - 14.5 % Platelets 236 150 - 450 x10*3/uL CBC Result Value Ref Range WBC 12.9 (H) 4.4 - 11.3 x10*3/uL nRBC 0.0 0.0 - 0.0 /100 WBCs RBC 3.72 (L) 4.50 - 5.90 x10*6/uL Hemoglobin 11.9 (L) 13.5 - 17.5 g/dL Hematocrit 35.7 (L) 41.0 - 52.0 % MCV 96 80 - 100 fL MCH 32.0 26.0 - 34.0 pg MCHC 33.3 32.0 - 36.0 g/dL RDW 12.0 11.5 - 14.5 % Platelets 237 150 - 450 x10*3/uL Basic metabolic panel Result Value Ref Range Glucose 118 (H) 74 - 99 mg/dL Sodium 136 136 - 145 mmol/L Potassium 3.7 3.5 - 5.3 mmol/L Chloride 103 98 - 107 mmol/L Bicarbonate 25 21 - 32 mmol/L Anion Gap 12 10 - 20 mmol/L Urea Nitrogen 19 6 - 23 mg/dL Creatinine 1.15 0.50 - 1.30 mg/dL eGFR 69 >60 mL/min/1.73m*2 Calcium 8.8 8.6 - 10.3 mg/dL Magnesium Result Value Ref Range Magnesium 1.61 1.60 - 2.40 mg/dL Assessment/Plan Assessment & Plan Other acute appendicitis Patient's white count is down to 12,000. His creatinine is 1.15. Potassium is 4 and magnesium is 1.6. Since his weight is still up when his lower extremities still have pitting edema, we will give him some more Lasix. Will advance him to a regular diet although I have encouraged him to stick with softer foods until he knows he can tolerate them. We will repeat his labs tomorrow and as long as everything looks okay we will plan on discharge. I explained to them I have a meeting this afternoon so I will not be stopping by again but the hospitalist is here if he has any needs. Honey Shi MD Sofya Cabrera is a 68 y.o. male on day 3 of admission presenting with Other acute appendicitis. Subjective Abdominal pain and distention improving No nausea vomiting Diarrhea little better Objective Physical Exam General Appearance: AAO x 3, Skin: skin color pink, warm, and dry; no suspicious rashes or lesions Eyes : PERRL, EOM's intact ENT: mucous membranes pink and moist Neck: normocephalic Respiratory: lungs clear to auscultation anteriorly; no wheezing, rhonchi, or crackles. Heart: regular rate and rhythm. Abdomen: distended, positive bowel sounds x4, soft, tender Extremities: no edema Peripheral pulses: normal x4 extremities Neuro: alert, coherent and conversant, no focal motor deficits Last Recorded Vitals Blood pressure (!) 141/96, pulse 77, temperature 36.3 C (97.3 F), temperature source Temporal, resp. rate 18, height 1.74 m (5' 8.5), weight 91.9 kg (202 lb 8 oz), SpO2 97%. Intake/Output last 3 Shifts: I/O last 3 completed shifts: In: 6302.7 (71.9 mL/kg) [P.O.:480; I.V.:4822.7 (55.1 mL/kg); IV Piggyback:1000] Out: 1175 (13.4 mL/kg) [Urine:1175 (0.4 mL/kg/hr)] Weight: 87.6 kg Relevant Results Scheduled medications acetaminophen, 650 mg, oral, q6h Or acetaminophen, 650 mg, oral, q6h Or acetaminophen, 650 mg, rectal, q6h ciprofloxacin, 400 mg, intravenous, q12h famotidine, 20 mg, intravenous, q12h JAMIR magnesium sulfate, 2 g, intravenous, Once metroNIDAZOLE, 500 mg, intravenous, q8h potassium chloride, 40 mEq, oral, BID Continuous medications PRN medications PRN medications: magnesium hydroxide, ondansetron ODT OR ondansetron, oxyCODONE Results for orders placed or performed during the hospital encounter of 10/11/24 (from the past 24 hours) Urinalysis with Reflex Culture and Microscopic Result Value Ref Range Color, Urine Yellow Light-Yellow, Yellow, Dark-Yellow Appearance, Urine Clear Clear Specific [place], Urine 1.023 1.005 - 1.035 pH, Urine 6.0 5.0, 5.5, 6.0, 6.5, 7.0, 7.5, 8.0 Protein, Urine 100 (2+) (A) NEGATIVE, 10 (TRACE), 20 (TRACE) mg/dL Glucose, Urine Normal Normal mg/dL Blood, Urine 0.2 (2+) (A) NEGATIVE Ketones, Urine TRACE (A) NEGATIVE mg/dL Bilirubin, Urine NEGATIVE NEGATIVE Urobilinogen, Urine Normal Normal mg/dL Nitrite, Urine NEGATIVE NEGATIVE Leukocyte Esterase, Urine NEGATIVE NEGATIVE Urinalysis Microscopic Result Value Ref Range WBC, Urine NONE 1-5, NONE /HPF RBC, Urine 1-2 NONE, 1-2, 3-5 /HPF CBC Result Value Ref Range WBC 17.3 (H) 4.4 - 11.3 x10*3/uL nRBC 0.0 0.0 - 0.0 /100 WBCs RBC 3.27 (L) 4.50 - 5.90 x10*6/uL Hemoglobin 10.7 (L) 13.5 - 17.5 g/dL Hematocrit 31.0 (L) 41.0 - 52.0 % MCV 95 80 - 100 fL MCH 32.7 26.0 - 34.0 pg MCHC 34.5 32.0 - 36.0 g/dL RDW 11.9 11.5 - 14.5 % Platelets 197 150 - 450 x10*3/uL Basic Metabolic Panel Result Value Ref Range Glucose 93 74 - 99 mg/dL Sodium 134 (L) 136 - 145 mmol/L Potassium 3.3 (L) 3.5 - 5.3 mmol/L Chloride 103 98 - 107 mmol/L Bicarbonate 22 21 - 32 mmol/L Anion Gap 12 10 - 20 mmol/L Urea Nitrogen 27 (H) 6 - 23 mg/dL Creatinine 1.29 0.50 - 1.30 mg/dL eGFR 60 (L) >60 mL/min/1.73m*2 Calcium 8.4 (L) 8.6 - 10.3 mg/dL Magnesium Result Value Ref Range Magnesium 1.42 (L) 1.60 - 2.40 mg/dL CT abdomen wo IV contrast Result Date: 10/12/2024 Interpreted By: Broderick Meeks, STUDY: CT ABDOMEN WO IV CONTRAST; 10/12/2024 2:43 pm INDICATION: Signs/Symptoms:abscess. COMPARISON: CT dated 10/11/2024 ACCESSION NUMBER(S): [id number] ORDERING CLINICIAN: HONEY SHI TECHNIQUE: Contiguous axial images were obtained at 3mm slice thickness through the lower abdomen and pelvis without intravenous contrast administration. Coronal and sagittal reconstructions at 3 mm slice thickness were performed. FINDINGS: The study is somewhat limited by the lack of intravenous contrast. Visualized portions of the liver LIVER: The liver is within normal limits for appearance, without evidence of focal masses. BILE DUCTS: No definite intra or extrahepatic biliary dilatation is identified. GALLBLADDER: The gallbladder is nondilated. No definite calcified gallstones are seen. PANCREAS: The pancreas is within normal limits for appearance, without evidence of focal masses. SPLEEN: The visualized portion of the spleen is within normal limits for size. No focal splenic mass is seen. ADRENAL GLANDS: A nodule is seen in the right adrenal gland, measuring at up to 2.3 x 1.5 cm in diameter. This measures at less than 10 Hounsfield units in density and is consistent with a lipid rich adenoma. KIDNEYS AND URETERS: There is no hydronephrosis, hydroureter or renal/ ureteral calculus identified bilaterally. Multiple rounded hypodensities are seen from the kidneys bilaterally. These are incompletely evaluated without contrast, but are unchanged from the prior study, and are consistent with cysts. BOWEL: Scattered diverticuli are seen throughout the sigmoid colon. The visualized portions of the colon and small bowel are otherwise within normal limits for course, caliber and appearance, without evidence of wall thickening or obstruction. The appendix is again seen to be dilated, measuring at up to 1.6 cm in diameter, and demonstrates significant periappendiceal inflammatory stranding. This is slightly decreased in size when compared to the prior study, on which it measured at up to 1.8 cm in diameter. VESSELS: Scattered atherosclerotic calcifications are seen throughout the infrarenal abdominal aorta and iliac arteries. The abdominal aorta is within normal limits for course, caliber and appearance, without evidence of aneurysm. PERITONEUM/RETROPERITONEUM/LYMPH NODES: There are several tiny bubbles of extraluminal air identified anteriorly within the upper abdomen and within the right lower quadrant mesentery, and may be secondary to micro perforation. A small amount of free fluid is seen within the pelvis, new relative to the prior study. No gross mesenteric or retroperitoneal lymphadenopathy is identified. BONE AND SOFT TISSUE: There is no evidence of acute fracture identified. No evidence of abdominal wall mass or hernia is identified. 1. Dilated appendix with significant periappendiceal inflammatory stranding, slightly decreased in size when compared to the prior study. 2. Scattered tiny bubbles of extraperitoneal air within the abdomen, may represent micro perforation. 3. Small amount of free fluid within the pelvis, new relative to the prior study. 4. No evidence of bowel obstruction. Signed by: Broderick Meeks 10/12/2024 3:26 PM Dictation workstation: [id number] Assessment/Plan Assessment & Plan Other acute appendicitis 68-year-old male with 1. Acute appendicitis, microperforation, also possible infectious colitis 2. Acute kidney injury 3. History of hypertension and borderline pressure 4. CACHORRO, ATN Plan Patient was getting IV fluids and slightly volume overloaded with swelling edema in extremities, will hold fluids Replace potassium for hypokalemia Follow serial BMP Hemodilution and watch hemoglobin, no signs of active bleeding Hemodynamically stable Will determine when we can perform CT abdomen pelvis again to evaluate abscesses versus resolution on IV antibiotics, ciprofloxacin and Flagyl Patient will need interval appendectomy Monitor cultures Clinically improving Pain control and antiemetics as required Oxycodone, Zofran Follow kidney function and urine output closely Encourage oral hydration Liquids Famotidine for GI prophylaxis Held DELANO inhibitors due to CACHORRO Follow vitals and daily CBC BMP Anticipate to improve medically on current regimen Patient was given Lasix IV to optimize volume status Replace electrolytes as deemed appropriate Check mag level also, replaced magnesium level Carly Joseph MD General Surgery Progress Note Patient is a 68 y.o. male with perforated appendicitis. He states today the pain is essentially gone. He can get up and cough without having any issues. He states he is voiding large volumes and that is very light in color. He is still having the diarrhea. He states his abdomen may feel slightly less distended BP (!) 141/96 (BP Location: Left arm, Patient Position: Lying) Pulse 77 Temp 36.3 C (97.3 F) (Temporal) Resp 18 Ht 1.74 m (5' 8.5) Wt 87.6 kg (193 lb 2 oz) SpO2 97% BMI 28.93 kg/m NAD, standing walking around No labored breathing, on room air NSR Abdomen continues distended He has significant edema of his feet in the lower third of his vásquez. He also has some edema in his hands. Intake/Output Summary (Last 24 hours) at 10/14/2024 1105 Last data filed at 10/14/2024 0932 Gross per 24 hour Intake 2442.5 ml Output 500 ml Net 1942.5 ml Results for orders placed or performed during the hospital encounter of 10/11/24 (from the past 24 hours) Urinalysis with Reflex Culture and Microscopic Result Value Ref Range Color, Urine Yellow Light-Yellow, Yellow, Dark-Yellow Appearance, Urine Clear Clear Specific [place], Urine 1.023 1.005 - 1.035 pH, Urine 6.0 5.0, 5.5, 6.0, 6.5, 7.0, 7.5, 8.0 Protein, Urine 100 (2+) (A) NEGATIVE, 10 (TRACE), 20 (TRACE) mg/dL Glucose, Urine Normal Normal mg/dL Blood, Urine 0.2 (2+) (A) NEGATIVE Ketones, Urine TRACE (A) NEGATIVE mg/dL Bilirubin, Urine NEGATIVE NEGATIVE Urobilinogen, Urine Normal Normal mg/dL Nitrite, Urine NEGATIVE NEGATIVE Leukocyte Esterase, Urine NEGATIVE NEGATIVE Urinalysis Microscopic Result Value Ref Range WBC, Urine NONE 1-5, NONE /HPF RBC, Urine 1-2 NONE, 1-2, 3-5 /HPF CBC Result Value Ref Range WBC 17.3 (H) 4.4 - 11.3 x10*3/uL nRBC 0.0 0.0 - 0.0 /100 WBCs RBC 3.27 (L) 4.50 - 5.90 x10*6/uL Hemoglobin 10.7 (L) 13.5 - 17.5 g/dL Hematocrit 31.0 (L) 41.0 - 52.0 % MCV 95 80 - 100 fL MCH 32.7 26.0 - 34.0 pg MCHC 34.5 32.0 - 36.0 g/dL RDW 11.9 11.5 - 14.5 % Platelets 197 150 - 450 x10*3/uL Basic Metabolic Panel Result Value Ref Range Glucose 93 74 - 99 mg/dL Sodium 134 (L) 136 - 145 mmol/L Potassium 3.3 (L) 3.5 - 5.3 mmol/L Chloride 103 98 - 107 mmol/L Bicarbonate 22 21 - 32 mmol/L Anion Gap 12 10 - 20 mmol/L Urea Nitrogen 27 (H) 6 - 23 mg/dL Creatinine 1.29 0.50 - 1.30 mg/dL eGFR 60 (L) >60 mL/min/1.73m*2 Calcium 8.4 (L) 8.6 - 10.3 mg/dL Patient is a 68 y.o. male with perforated appendicitis. Clinically appears to be improving. His white count is stable. His hemoglobin is down to 10.7 I suspect from hemodilution. Creatinine is down to 1.3 and GFR is 60. Clinically he is mobilizing his fluids. I gave him some potassium this morning. However with the extent of the edema I feel he would benefit from some Lasix. I have hep-locked his IVs and given 1 dose of 20 of Lasix. He will get some more K lower at noon, 40 mEq. I will check a CBC and BMP at 3 and determine further interventions. I did add magnesium to this morning's labs and we will replace that if necessary. I discussed with the patient I do not feel there would be much benefit in doing a CT today and the longer we can get to 5 to 7 days it would give us a better idea of the abscesses. He asked if we ultimately would take his appendix out and I said yes after he results from all this and the inflammation goes down we would plan on interval appendectomy. Pt reviewed during Care Rounds today and he is not ready for discharge; ADOD is 24-48 hours. Pt is planning to return home where he lives with his . We reviewed the IM with no questions/concerns- copy added to pt's chart, another copy provided to pt/ Care Transitions will follow as needed. KASSY Ghosh Sofya Cabrera is a 68 y.o. male on day 2 of admission presenting with Other acute appendicitis. Subjective Abdominal distention Diarrhea No nausea vomiting No fever Objective Physical Exam General Appearance: AAO x 3, Skin: skin color pink, warm, and dry; no suspicious rashes or lesions Eyes : PERRL, EOM's intact ENT: mucous membranes pink and moist Neck: normocephalic Respiratory: lungs clear to auscultation anteriorly; no wheezing, rhonchi, or crackles. Heart: regular rate and rhythm. Abdomen: distended, positive bowel sounds x4, soft, tender Extremities: no edema Peripheral pulses: normal x4 extremities Neuro: alert, coherent and conversant, no focal motor deficits Last Recorded Vitals Blood pressure 158/90, pulse 91, temperature 36.4 C (97.5 F), temperature source Temporal, resp. rate 18, height 1.74 m (5' 8.5), weight 87.6 kg (193 lb 2 oz), SpO2 97%. Intake/Output last 3 Shifts: I/O last 3 completed shifts: In: 7086.4 (80.9 mL/kg) [P.O.:480; I.V.:4856.4 (55.4 mL/kg); IV Piggyback:1750] Out: 675 (7.7 mL/kg) [Urine:675 (0.2 mL/kg/hr)] Weight: 87.6 kg Relevant Results Scheduled medications acetaminophen, 650 mg, oral, q6h Or acetaminophen, 650 mg, oral, q6h Or acetaminophen, 650 mg, rectal, q6h ciprofloxacin, 400 mg, intravenous, q12h famotidine, 20 mg, intravenous, q12h JAMIR metroNIDAZOLE, 500 mg, intravenous, q8h Continuous medications lactated Ringer's, 75 mL/hr, Last Rate: 75 mL/hr (10/13/24 1436) PRN medications PRN medications: magnesium hydroxide, ondansetron ODT OR ondansetron, oxyCODONE Results for orders placed or performed during the hospital encounter of 10/11/24 (from the past 24 hours) Sodium, Urine Random Result Value Ref Range Sodium, Urine Random 34 mmol/L Creatinine, Urine Random 229.3 20.0 - 370.0 mg/dL Sodium/Creatinine Ratio 15 Not established. mmol/g Creat Stool Pathogen Panel, PCR Specimen: Stool Result Value Ref Range Campylobacter Group Not Detected Not Detected Salmonella species Not Detected Not Detected Shigella species Not Detected Not Detected Vibrio Group Not Detected Not Detected Yersinia Enterocolitica Not Detected Not Detected Shiga Toxin 1 Not Detected Not Detected Shiga Toxin 2 Not Detected Not Detected Norovirus GI/GII Not Detected Not Detected Rotavirus A Not Detected Not Detected C. difficile, PCR Specimen: Stool Result Value Ref Range C. difficile, PCR Not Detected Not Detected Urinalysis with Reflex Culture and Microscopic Result Value Ref Range Color, Urine Light-[place] (N) Light-Yellow, Yellow, Dark-Yellow Appearance, Urine Ex.Turbid (N) Clear Specific [place], Urine 1.035 1.005 - 1.035 pH, Urine 5.5 5.0, 5.5, 6.0, 6.5, 7.0, 7.5, 8.0 Protein, Urine 100 (2+) (A) NEGATIVE, 10 (TRACE), 20 (TRACE) mg/dL Glucose, Urine Normal Normal mg/dL Blood, Urine 0.2 (2+) (A) NEGATIVE Ketones, Urine TRACE (A) NEGATIVE mg/dL Bilirubin, Urine NEGATIVE NEGATIVE Urobilinogen, Urine Normal Normal mg/dL Nitrite, Urine NEGATIVE NEGATIVE Leukocyte Esterase, Urine NEGATIVE NEGATIVE Extra Urine Gutiérrez Tube Result Value Ref Range Extra Tube Hold for add-ons. Urinalysis Microscopic Result Value Ref Range WBC, Urine 11-20 (A) 1-5, NONE /HPF WBC Clumps, Urine OCCASIONAL Reference range not established. /HPF RBC, Urine 11-20 (A) NONE, 1-2, 3-5 /HPF Squamous Epithelial Cells, Urine 1-9 (SPARSE) Reference range not established. /HPF Bacteria, Urine 1+ (A) NONE SEEN /HPF CBC Result Value Ref Range WBC 16.7 (H) 4.4 - 11.3 x10*3/uL nRBC 0.0 0.0 - 0.0 /100 WBCs RBC 3.52 (L) 4.50 - 5.90 x10*6/uL Hemoglobin 11.5 (L) 13.5 - 17.5 g/dL Hematocrit 34.5 (L) 41.0 - 52.0 % MCV 98 80 - 100 fL MCH 32.7 26.0 - 34.0 pg MCHC 33.3 32.0 - 36.0 g/dL RDW 12.0 11.5 - 14.5 % Platelets 182 150 - 450 x10*3/uL Basic Metabolic Panel Result Value Ref Range Glucose 117 (H) 74 - 99 mg/dL Sodium 135 (L) 136 - 145 mmol/L Potassium 3.5 3.5 - 5.3 mmol/L Chloride 102 98 - 107 mmol/L Bicarbonate 24 21 - 32 mmol/L Anion Gap 13 10 - 20 mmol/L Urea Nitrogen 37 (H) 6 - 23 mg/dL Creatinine 2.39 (H) 0.50 - 1.30 mg/dL eGFR 29 (L) >60 mL/min/1.73m*2 Calcium 8.1 (L) 8.6 - 10.3 mg/dL CT abdomen wo IV contrast Result Date: 10/12/2024 Interpreted By: Broderick Meeks, STUDY: CT ABDOMEN WO IV CONTRAST; 10/12/2024 2:43 pm INDICATION: Signs/Symptoms:abscess. COMPARISON: CT dated 10/11/2024 ACCESSION NUMBER(S): [id number] ORDERING CLINICIAN: HONEY SHI TECHNIQUE: Contiguous axial images were obtained at 3mm slice thickness through the lower abdomen and pelvis without intravenous contrast administration. Coronal and sagittal reconstructions at 3 mm slice thickness were performed. FINDINGS: The study is somewhat limited by the lack of intravenous contrast. Visualized portions of the liver LIVER: The liver is within normal limits for appearance, without evidence of focal masses. BILE DUCTS: No definite intra or extrahepatic biliary dilatation is identified. GALLBLADDER: The gallbladder is nondilated. No definite calcified gallstones are seen. PANCREAS: The pancreas is within normal limits for appearance, without evidence of focal masses. SPLEEN: The visualized portion of the spleen is within normal limits for size. No focal splenic mass is seen. ADRENAL GLANDS: A nodule is seen in the right adrenal gland, measuring at up to 2.3 x 1.5 cm in diameter. This measures at less than 10 Hounsfield units in density and is consistent with a lipid rich adenoma. KIDNEYS AND URETERS: There is no hydronephrosis, hydroureter or renal/ ureteral calculus identified bilaterally. Multiple rounded hypodensities are seen from the kidneys bilaterally. These are incompletely evaluated without contrast, but are unchanged from the prior study, and are consistent with cysts. BOWEL: Scattered diverticuli are seen throughout the sigmoid colon. The visualized portions of the colon and small bowel are otherwise within normal limits for course, caliber and appearance, without evidence of wall thickening or obstruction. The appendix is again seen to be dilated, measuring at up to 1.6 cm in diameter, and demonstrates significant periappendiceal inflammatory stranding. This is slightly decreased in size when compared to the prior study, on which it measured at up to 1.8 cm in diameter. VESSELS: Scattered atherosclerotic calcifications are seen throughout the infrarenal abdominal aorta and iliac arteries. The abdominal aorta is within normal limits for course, caliber and appearance, without evidence of aneurysm. PERITONEUM/RETROPERITONEUM/LYMPH NODES: There are several tiny bubbles of extraluminal air identified anteriorly within the upper abdomen and within the right lower quadrant mesentery, and may be secondary to micro perforation. A small amount of free fluid is seen within the pelvis, new relative to the prior study. No gross mesenteric or retroperitoneal lymphadenopathy is identified. BONE AND SOFT TISSUE: There is no evidence of acute fracture identified. No evidence of abdominal wall mass or hernia is identified. 1. Dilated appendix with significant periappendiceal inflammatory stranding, slightly decreased in size when compared to the prior study. 2. Scattered tiny bubbles of extraperitoneal air within the abdomen, may represent micro perforation. 3. Small amount of free fluid within the pelvis, new relative to the prior study. 4. No evidence of bowel obstruction. Signed by: Broderick Meeks 10/12/2024 3:26 PM Dictation workstation: [id number] Assessment/Plan Assessment & Plan Other acute appendicitis 68-year-old male with 1. Acute appendicitis, microperforation, possible infectious colitis 2. Acute kidney injury 3. History of hypertension and relatively hypotensive #4 CACHORRO, ATN Plan Continue supportive care On ciprofloxacin and Flagyl IV Monitor cultures Repeat CT scan to evaluate progress if resolution happening or worsening with abscess formation then plan intervention accordingly As of now, there is some clinical progress and to continue medical treatment at this time Pain is overall better Patient prefers Tylenol for now Antiemetics if required Oxycodone, Zofran Kidney function improving somewhat Follow daily BMP and urine output Education counseling Hydrate well Diarrhea to be watched, C. difficile not detected Continue Ringer lactate Famotidine for GI prophylaxis Hold DELANO inhibitors due to CACHORRO Follow vitals Continue current medical treatment and wait on surgery decision, hopefully improves clinically without surgical intervention Carly Joseph MD General Surgery Progress Note Patient is a 68 y.o. male with perforated appendicitis which was initially contained. He had an acute kidney injury from the CT contrast for which we have been giving him fluid and his creatinine is coming down. We sent him down for CT scan yesterday without contrast in the hopes of draining what I assumed would be an abscess. When he went down the radiologist said that he thinks that the appendix had drained into the colon after the appendicolith moved. There was no abscess to drain. On reading the final report today he states that there looks like there is a microperforate small bubbles of air near the appendix and some fluid in his pelvis. The patient continues afebrile with stable vital signs. His blood pressure has improved with the fluid although he was never symptomatic. He continues to complain of bloating but states it has been improving some this morning. He has been on full liquids and tolerating this although the diarrhea continues. He states last night the pain changed and went all the way across his lower abdomen and was quite uncomfortable when he stood up. He states that is improved today and the bloating feels like it is improving also. His white count is coming down. BP 133/86 (BP Location: Left arm, Patient Position: Sitting) Pulse 85 Temp 36.8 C (98.2 F) (Temporal) Resp 18 Ht 1.74 m (5' 8.5) Wt 87.6 kg (193 lb 2 oz) SpO2 97% BMI 28.93 kg/m NAD, he is standing walking around his room stating that he just feels bloated and it can be difficult to take a deep breath due to this. He is pointing to his groin areas for the discomfort but states it is just that discomfort. He does not look ill. No labored breathing, on room air NSR Abdomen is distended but not tympanitic. Intake/Output Summary (Last 24 hours) at 10/13/2024 1024 Last data filed at 10/13/2024 1018 Gross per 24 hour Intake 6704.34 ml Output 875 ml Net 5829.34 ml Results for orders placed or performed during the hospital encounter of 10/11/24 (from the past 24 hours) Sodium, Urine Random Result Value Ref Range Sodium, Urine Random 34 mmol/L Creatinine, Urine Random 229.3 20.0 - 370.0 mg/dL Sodium/Creatinine Ratio 15 Not established. mmol/g Creat C. difficile, PCR Specimen: Stool Result Value Ref Range C. difficile, PCR Not Detected Not Detected Urinalysis with Reflex Culture and Microscopic Result Value Ref Range Color, Urine Light-[place] (N) Light-Yellow, Yellow, Dark-Yellow Appearance, Urine Ex.Turbid (N) Clear Specific [place], Urine 1.035 1.005 - 1.035 pH, Urine 5.5 5.0, 5.5, 6.0, 6.5, 7.0, 7.5, 8.0 Protein, Urine 100 (2+) (A) NEGATIVE, 10 (TRACE), 20 (TRACE) mg/dL Glucose, Urine Normal Normal mg/dL Blood, Urine 0.2 (2+) (A) NEGATIVE Ketones, Urine TRACE (A) NEGATIVE mg/dL Bilirubin, Urine NEGATIVE NEGATIVE Urobilinogen, Urine Normal Normal mg/dL Nitrite, Urine NEGATIVE NEGATIVE Leukocyte Esterase, Urine NEGATIVE NEGATIVE Extra Urine Gutiérrez Tube Result Value Ref Range Extra Tube Hold for add-ons. Urinalysis Microscopic Result Value Ref Range WBC, Urine 11-20 (A) 1-5, NONE /HPF WBC Clumps, Urine OCCASIONAL Reference range not established. /HPF RBC, Urine 11-20 (A) NONE, 1-2, 3-5 /HPF Squamous Epithelial Cells, Urine 1-9 (SPARSE) Reference range not established. /HPF Bacteria, Urine 1+ (A) NONE SEEN /HPF CBC Result Value Ref Range WBC 16.7 (H) 4.4 - 11.3 x10*3/uL nRBC 0.0 0.0 - 0.0 /100 WBCs RBC 3.52 (L) 4.50 - 5.90 x10*6/uL Hemoglobin 11.5 (L) 13.5 - 17.5 g/dL Hematocrit 34.5 (L) 41.0 - 52.0 % MCV 98 80 - 100 fL MCH 32.7 26.0 - 34.0 pg MCHC 33.3 32.0 - 36.0 g/dL RDW 12.0 11.5 - 14.5 % Platelets 182 150 - 450 x10*3/uL Basic Metabolic Panel Result Value Ref Range Glucose 117 (H) 74 - 99 mg/dL Sodium 135 (L) 136 - 145 mmol/L Potassium 3.5 3.5 - 5.3 mmol/L Chloride 102 98 - 107 mmol/L Bicarbonate 24 21 - 32 mmol/L Anion Gap 13 10 - 20 mmol/L Urea Nitrogen 37 (H) 6 - 23 mg/dL Creatinine 2.39 (H) 0.50 - 1.30 mg/dL eGFR 29 (L) >60 mL/min/1.73m*2 Calcium 8.1 (L) 8.6 - 10.3 mg/dL Patient is a 68 y.o. male with what initially was a localized perforation of acute appendicitis. Even though on the CT done yesterday,it is small, but he does have extraluminal air. That could explain his increased pain last evening and he may just be resolving this on his own along with the antibiotics. He states he shared this with the staff yesterday but this is the first I have heard of it. I explained to them I am concerned that this did micro perforate and he is developing ascitic fluid with peritonitis. This may actually be sealed improving at this point. I explained to I am in on the fence about whether to operate on him or continue to allow him to try and resolve this on his own. I explained 1 thing we could do would be to take him to the OR for exploratory laparoscopy with washout possible open. I explained to him with the amount of distention he has I think laparoscopic would be very difficult and we would probably have to open him. I told him if I did open him I would wash it out and then try and get the appendix out while we were there. He states emphatically he has improved a great deal since yesterday. I explained the other option would be to let this process develop understanding he may develop an abscess which would need to be drained percutaneously or with surgery. I will make him n.p.o. except for ice chips and follow him clinically at this point. I will consider repeating his labs and his CT later. He states the discomfort is mainly in his inguinal region and may be related to the fluid that is in his pelvis. Sofya Cabrera is a 68 y.o. male on day 2 of admission presenting with Other acute appendicitis. Subjective Patient seen and examined at the bedside this morning He is ambulating around his room He is not feeling very well His abdomen feels very distended and bloated to him He is having good urine output He is also having diarrhea and he states that this is about hourly Objective Vitals 24HR Heart Rate: [67-93] Temp: [36.6 C (97.9 F)-36.9 C (98.4 F)] Resp: [16-20] BP: (114-133)/(67-86) SpO2: [95 %-99 %] Intake/Output last 3 Shifts: Intake/Output Summary (Last 24 hours) at 10/13/2024 0929 Last data filed at 10/13/2024 0722 Gross per 24 hour Intake 5536.42 ml Output 775 ml Net 4761.42 ml Physical Exam Constitutional: Appearance: Normal appearance. HENT: Head: Normocephalic and atraumatic. Right Ear: External ear normal. Left Ear: External ear normal. Nose: Nose normal. Mouth/Throat: Mouth: Mucous membranes are moist. Pharynx: Oropharynx is clear. Eyes: Extraocular Movements: Extraocular movements intact. Conjunctiva/sclera: Conjunctivae normal. Pupils: Pupils are equal, round, and reactive to light. Cardiovascular: Rate and Rhythm: Normal rate and regular rhythm. Pulmonary: Effort: Pulmonary effort is normal. Breath sounds: Normal breath sounds. Abdominal: General: Abdomen is flat. There is distension. Palpations: Abdomen is soft. Skin: General: Skin is warm and dry. Neurological: General: No focal deficit present. Mental Status: He is alert and oriented to person, place, and time. Psychiatric: Mood and Affect: Mood normal. Behavior: Behavior normal. Scheduled medications acetaminophen, 650 mg, oral, q6h Or acetaminophen, 650 mg, oral, q6h Or acetaminophen, 650 mg, rectal, q6h ciprofloxacin, 400 mg, intravenous, q12h famotidine, 20 mg, intravenous, q12h JAMIR metroNIDAZOLE, 500 mg, intravenous, q8h Continuous medications PRN medications PRN medications: magnesium hydroxide, ondansetron ODT OR ondansetron, oxyCODONE Relevant Results Assessment/Plan Assessment & Plan Other acute appendicitis Acute kidney injury: ATN Acute appendicitis Leukocytosis History of hypertension with relative hypotension here in the hospital Plan: His renal function has improved over the last 24 hours He is having diarrhea and poor oral intake and so we will continue lactated Ringer's at this time Donte Becerra DO Sofya Cabrera is a 68 y.o. male on day 1 of admission presenting with Other acute appendicitis. Subjective Abdominal bloating Diarrhea No nausea vomiting No fever chills Denies any significant severe diffuse abdominal pain No bleeding Objective Physical Exam General Appearance: AAO x 3, Skin: skin color pink, warm, and dry; no suspicious rashes or lesions Eyes : PERRL, EOM's intact ENT: mucous membranes pink and moist Neck: normocephalic Respiratory: lungs clear to auscultation anteriorly; no wheezing, rhonchi, or crackles. Heart: regular rate and rhythm. telemetry shows sinus rhythm Abdomen: distended, positive bowel sounds x4, soft, tender Extremities: no edema Peripheral pulses: normal x4 extremities Neuro: alert, coherent and conversant, no focal motor deficits Last Recorded Vitals Blood pressure 118/67, pulse 89, temperature 36.8 C (98.3 F), temperature source Temporal, resp. rate 16, height 1.74 m (5' 8.5), weight 87.6 kg (193 lb 2 oz), SpO2 95%. Intake/Output last 3 Shifts: I/O last 3 completed shifts: In: 1895 (21.6 mL/kg) [I.V.:1645 (18.8 mL/kg); IV Piggyback:250] Out: - (0 mL/kg) Weight: 87.6 kg Relevant Results Scheduled medications acetaminophen, 650 mg, oral, q6h Or acetaminophen, 650 mg, oral, q6h Or acetaminophen, 650 mg, rectal, q6h ciprofloxacin, 400 mg, intravenous, q12h famotidine, 20 mg, intravenous, q12h JAMIR metroNIDAZOLE, 500 mg, intravenous, q8h Continuous medications lactated Ringer's, 200 mL/hr, Last Rate: 200 mL/hr (10/12/24 1546) sodium chloride 0.9%, 100 mL/hr PRN medications PRN medications: magnesium hydroxide, ondansetron ODT OR ondansetron, oxyCODONE Results for orders placed or performed during the hospital encounter of 10/11/24 (from the past 24 hours) CBC Result Value Ref Range WBC 19.6 (H) 4.4 - 11.3 x10*3/uL nRBC 0.0 0.0 - 0.0 /100 WBCs RBC 3.91 (L) 4.50 - 5.90 x10*6/uL Hemoglobin 12.7 (L) 13.5 - 17.5 g/dL Hematocrit 38.3 (L) 41.0 - 52.0 % MCV 98 80 - 100 fL MCH 32.5 26.0 - 34.0 pg MCHC 33.2 32.0 - 36.0 g/dL RDW 12.1 11.5 - 14.5 % Platelets 205 150 - 450 x10*3/uL Basic metabolic panel Result Value Ref Range Glucose 108 (H) 74 - 99 mg/dL Sodium 138 136 - 145 mmol/L Potassium 4.1 3.5 - 5.3 mmol/L Chloride 101 98 - 107 mmol/L Bicarbonate 26 21 - 32 mmol/L Anion Gap 15 10 - 20 mmol/L Urea Nitrogen 32 (H) 6 - 23 mg/dL Creatinine 2.94 (H) 0.50 - 1.30 mg/dL eGFR 22 (L) >60 mL/min/1.73m*2 Calcium 8.5 (L) 8.6 - 10.3 mg/dL CT abdomen wo IV contrast Result Date: 10/12/2024 Interpreted By: Broderick Meeks, STUDY: CT ABDOMEN WO IV CONTRAST; 10/12/2024 2:43 pm INDICATION: Signs/Symptoms:abscess. COMPARISON: CT dated 10/11/2024 ACCESSION NUMBER(S): [id number] ORDERING CLINICIAN: HONEY SHI TECHNIQUE: Contiguous axial images were obtained at 3mm slice thickness through the lower abdomen and pelvis without intravenous contrast administration. Coronal and sagittal reconstructions at 3 mm slice thickness were performed. FINDINGS: The study is somewhat limited by the lack of intravenous contrast. Visualized portions of the liver LIVER: The liver is within normal limits for appearance, without evidence of focal masses. BILE DUCTS: No definite intra or extrahepatic biliary dilatation is identified. GALLBLADDER: The gallbladder is nondilated. No definite calcified gallstones are seen. PANCREAS: The pancreas is within normal limits for appearance, without evidence of focal masses. SPLEEN: The visualized portion of the spleen is within normal limits for size. No focal splenic mass is seen. ADRENAL GLANDS: A nodule is seen in the right adrenal gland, measuring at up to 2.3 x 1.5 cm in diameter. This measures at less than 10 Hounsfield units in density and is consistent with a lipid rich adenoma. KIDNEYS AND URETERS: There is no hydronephrosis, hydroureter or renal/ ureteral calculus identified bilaterally. Multiple rounded hypodensities are seen from the kidneys bilaterally. These are incompletely evaluated without contrast, but are unchanged from the prior study, and are consistent with cysts. BOWEL: Scattered diverticuli are seen throughout the sigmoid colon. The visualized portions of the colon and small bowel are otherwise within normal limits for course, caliber and appearance, without evidence of wall thickening or obstruction. The appendix is again seen to be dilated, measuring at up to 1.6 cm in diameter, and demonstrates significant periappendiceal inflammatory stranding. This is slightly decreased in size when compared to the prior study, on which it measured at up to 1.8 cm in diameter. VESSELS: Scattered atherosclerotic calcifications are seen throughout the infrarenal abdominal aorta and iliac arteries. The abdominal aorta is within normal limits for course, caliber and appearance, without evidence of aneurysm. PERITONEUM/RETROPERITONEUM/LYMPH NODES: There are several tiny bubbles of extraluminal air identified anteriorly within the upper abdomen and within the right lower quadrant mesentery, and may be secondary to micro perforation. A small amount of free fluid is seen within the pelvis, new relative to the prior study. No gross mesenteric or retroperitoneal lymphadenopathy is identified. BONE AND SOFT TISSUE: There is no evidence of acute fracture identified. No evidence of abdominal wall mass or hernia is identified. 1. Dilated appendix with significant periappendiceal inflammatory stranding, slightly decreased in size when compared to the prior study. 2. Scattered tiny bubbles of extraperitoneal air within the abdomen, may represent micro perforation. 3. Small amount of free fluid within the pelvis, new relative to the prior study. 4. No evidence of bowel obstruction. Signed by: Broderick Meeks 10/12/2024 3:26 PM Dictation workstation: [id number] CT abdomen pelvis w IV contrast Addendum Date: 10/11/2024 (03:20) Zulma Mendez: [email or web address] will connect (03:22) Zulma Mendez: Sofya Quiros pt, Dr. Signed by Richard Porter MD Result Date: 10/11/2024 STUDY: CT Abdomen and Pelvis with IV Contrast; 10/11/2024 at 2:39 AM. INDICATION: Right lower quadrant abdominal pain. COMPARISON: None available. ACCESSION NUMBER(S): [id number] ORDERING CLINICIAN: JIMENEZ HUTCHINSON TECHNIQUE: CT of the abdomen and pelvis was performed. Contiguous axial images were obtained at 3 mm slice thickness through the abdomen and pelvis. Coronal and sagittal reconstructions at 3 mm slice thickness were performed. Omnipaque 350 67 mL was administered intravenously. FINDINGS: LOWER CHEST: No cardiomegaly. No pericardial effusion. Lung bases are clear. ABDOMEN: LIVER: No hepatomegaly. Multiple cysts are seen in the liver largest measures 2.5 cm. BILE DUCTS: No intrahepatic or extrahepatic biliary ductal dilatation. GALLBLADDER: The gallbladder is normal. STOMACH: No abnormalities identified. PANCREAS: No masses or ductal dilatation. SPLEEN: No splenomegaly or focal splenic lesion. ADRENAL GLANDS: No thickening or nodules. KIDNEYS AND URETERS: Bilateral renal cysts, the largest measures 3 cm. No renal or ureteral calculi. PELVIS: BLADDER: No abnormalities identified. REPRODUCTIVE ORGANS: No abnormalities identified. BOWEL: Diverticulosis of the colon. VESSELS: No abnormalities identified. Abdominal aorta is normal in caliber. PERITONEUM/RETROPERITONEUM/LYMPH NODES: No free fluid. No pneumoperitoneum. No lymphadenopathy. ABDOMINAL WALL: No abnormalities identified. SOFT TISSUES: No abnormalities identified. BONES: No acute fracture or aggressive osseous lesion. There is enlargement of the appendix with marked adjacent fat stranding suggesting perforated appendicitis. Acute perforated appendicitis. Signed by Richard Porter MD Assessment/Plan Assessment & Plan Other acute appendicitis 68-year-old male with 1. Acute appendicitis, possible infectious colitis 2. Acute kidney injury 3. History of hypertension and relatively hypotensive Supportive care On ciprofloxacin and Flagyl IV Monitor cultures Tried CT-guided drain placement but no abscess Inflammation improving Still distended belly Anticipate to improve clinically Follow kidney function with BMP and urine output Daily CBC Symptomatic management Education counseling Check stool for C. difficile due to diarrhea Ringer lactate Hydrate well Pain control and antiemetics Oxycodone, Zofran Famotidine for GI prophylaxis Continue current medicines Follow clinically Held DELANO inhibitors with recent contrast and low p.o. intake all leading to CACHORRO Lab checks daily Carly Joseph MD Per medical team, patient is not yet medically appropriate for discharge today; will likely require another 48 hours in the hospital. Patient's current plan is to return home when medically ready with no Care Transitions needs foreseen. Care Transitions to follow and assist should any new needs arise. LEONEL Restrepo Sofya Cabrera is a 68 y.o. male on day 1 of admission presenting with Other acute appendicitis. Subjective Patient states his pain continues to improve although he is continuous still operator in his right lower quadrant. He is only taking Tylenol and Toradol for pain. He has had multiple loose stools. He states he is not making much urine when questioned. He has been afebrile. Blood pressure has been in the 90s but he is not tachycardic. Objective Physical Exam Constitutional: General: He is not in acute distress. Eyes: Conjunctiva/sclera: Conjunctivae normal. Cardiovascular: Rate and Rhythm: Normal rate. Pulmonary: Effort: Pulmonary effort is normal. Abdominal: Comments: Continues distended Neurological: General: No focal deficit present. Mental Status: He is alert. Last Recorded Vitals Blood pressure 92/57, pulse 76, temperature 36.1 C (97 F), temperature source Temporal, resp. rate 16, height 1.74 m (5' 8.5), weight 87.6 kg (193 lb 2 oz), SpO2 94%. Intake/Output last 3 Shifts: I/O last 3 completed shifts: In: 1895 (21.6 mL/kg) [I.V.:1645 (18.8 mL/kg); IV Piggyback:250] Out: - (0 mL/kg) Weight: 87.6 kg Relevant Results Results for orders placed or performed during the hospital encounter of 10/11/24 (from the past 24 hours) CBC Result Value Ref Range WBC 19.6 (H) 4.4 - 11.3 x10*3/uL nRBC 0.0 0.0 - 0.0 /100 WBCs RBC 3.91 (L) 4.50 - 5.90 x10*6/uL Hemoglobin 12.7 (L) 13.5 - 17.5 g/dL Hematocrit 38.3 (L) 41.0 - 52.0 % MCV 98 80 - 100 fL MCH 32.5 26.0 - 34.0 pg MCHC 33.2 32.0 - 36.0 g/dL RDW 12.1 11.5 - 14.5 % Platelets 205 150 - 450 x10*3/uL Basic metabolic panel Result Value Ref Range Glucose 108 (H) 74 - 99 mg/dL Sodium 138 136 - 145 mmol/L Potassium 4.1 3.5 - 5.3 mmol/L Chloride 101 98 - 107 mmol/L Bicarbonate 26 21 - 32 mmol/L Anion Gap 15 10 - 20 mmol/L Urea Nitrogen 32 (H) 6 - 23 mg/dL Creatinine 2.94 (H) 0.50 - 1.30 mg/dL eGFR 22 (L) >60 mL/min/1.73m*2 Calcium 8.5 (L) 8.6 - 10.3 mg/dL Assessment/Plan Assessment & Plan Other acute appendicitis Patient with perforated appendicitis with localized containment. White count is up a bit probably because he is abscessing. Plan had been to repeat the CT today and possibly percutaneously drain the area if the abscess was mature. However this morning his creatinine is up to 2.9. This is probably a combination from the CT as well as the loss is related to his diarrhea. I have switched his IVs to LR at 125 and I will give him a fluid bolus of 0.9. I have stopped his Toradol. I messaged the hospitalist so he could work up the acute kidney injury as well as adjust his other medicines. Patient was informed. He actually stated he did not need to take anything for pain and I told him if we stop the Tylenol he may become a little bit more sore. Honey Shi MD 10/11/24 1207 Discharge Planning Living Arrangements Spouse/significant other Support Systems Spouse/significant other Assistance Needed None Type of Residence Private residence Number of Stairs to Enter Residence 2 Number of Stairs Within Residence (Bedroom/bath on first floor) Do you have animals or pets at home? Yes Type of Animals or Pets 3 cats Who is requesting discharge planning? Provider Home or Post Acute Services None Expected Discharge Disposition Home Does the patient need discharge transport arranged? No Financial Resource Strain How hard is it for you to pay for the very basics like food, housing, medical care, and heating? Not hard Housing Stability In the last 12 months, was there a time when you were not able to pay the mortgage or rent on time? N In the past 12 months, how many times have you moved where you were living? 0 At any time in the past 12 months, were you homeless or living in a long-term (including now)? N Transportation Needs In the past 12 months, has lack of transportation kept you from medical appointments or from getting medications? no In the past 12 months, has lack of transportation kept you from meetings, work, or from getting things needed for daily living? No Intensity of Service Intensity of Service 0-30 min Care Transitions: Patient reviewed in care round meeting this AM, ADOD 48 hours. Met with patient at bedside for initial assessment. Role of TCC explained in discharge planning process. Demographics and contact verified. Resides with in a two story farmhouse, feels safe. PCP is Dr. Cleary in [place]. Preferred pharmacy is [facility] in [place]. Denies any difficulty obtaining/affording medications. He is independent at home with ADL's and does not use any DME equipment currently and denies the need for any. He is retired and drives self to appointments. [facility] . Medicare IMM reviewed, patient signed, copy provided, original placed in chart. Voiced understanding.. Discharge plan is to return home, denies needs or in home services. to transport home when discharged. Care team to follow. Colette Tony RN/TCC documented in this encounter [facility] Work Phone: 10-17-2024 Evaluation + Plan note Associated Problem(s): Other acute appendicitis 68-year-old male with a past medical history of hypertension, who presented to the emergency room for abdominal pain. CT scan of the abdomen and pelvis showed findings highly suspicious for an acute perforated appendicitis. Blood workup showed leukocytosis. [facility] Work Phone: 10-17-2024 Note Formatting of this n ote might be different from the original. I discussed with the radiology staff. We can do the CT but if there is an abscess there is no interventional radiologist to drain this and the patient will need to be transferred. [facility] Work Phone: 10-17-2024 Plan of care note Problem: Pain - Adult Goal: Verbalizes/displays adequate comfort level or baseline comfort level Outcome: Progressing Problem: Safety - Adult Goal: Free from fall injury Outcome: Progressing Problem: Discharge Planning Goal: Discharge to home or other facility with appropriate resources Outcome: Progressing Problem: Chronic Conditions and Co-morbidities Goal: Patient's chronic conditions and co-morbidity symptoms are monitored and maintained or improved Outcome: Progressing Problem: Fall/Injury Goal: Not fall by end of shift Outcome: Progressing Goal: Be free from injury by end of the shift Outcome: Progressing Goal: Verbalize understanding of personal risk factors for fall in the hospital Outcome: Progressing Goal: Verbalize understanding of risk factor reduction measures to prevent injury from fall in the home Outcome: Progressing The patient's goals for the shift include no falls The clinical goals for the shift include ambulate in the halls, have decreased pain and decreased WBC count with morning labs Over the shift, the patient did not make progress toward the following goals. Barriers to progression include . Recommendations to address these barriers include . [facility] Work Phone: 10-16-2024 Plan of care note The patient's goals for the shift include no falls go home The clinical goals for the shift include tolerate advanced diet no falls, labs and vs wdl [facility] 10-15-2024 Plan of care note Problem: Pain - Adult Goal: Verbalizes/displays adequate comfort level or baseline comfort level Outcome: Progressing Problem: Safety - Adult Goal: Free from fall injury Outcome: Progressing Problem: Pain - Adult Goal: Verbalizes/displays adequate comfort level or baseline comfort level Outcome: Progressing The patient's goals for the shift include no falls The clinical goals for the shift include Pain control [facility] 10-15-2024 Plan of care note The patient's goals for the shift include no falls The clinical goals for the shift include Pain control Problem: Pain - Adult Goal: Verbalizes/displays adequate comfort level or baseline comfort level Outcome: Progressing Problem: Safety - Adult Goal: Free from fall injury Outcome: Progressing Problem: Discharge Planning Goal: Discharge to home or other facility with appropriate resources Outcome: Progressing Problem: Chronic Conditions and Co-morbidities Goal: Patient's chronic conditions and co-morbidity symptoms are monitored and maintained or improved Outcome: Progressing [facility] 10-14-2024 Note Formatting of this n ote might be different from the original. Patient is seen with his and daughter. We reviewed his clinical course. He diuresed quite nicely with the Lasix. He states the diarrhea is starting to wan. He has not been drinking that much as he says he feels up fairly quickly. He still has edema in his extremities. I will give him another dose of Lasix tonight. I will add some oral protein supplements. [facility] Work Phone: 10-14-2024 Plan of care note The patient's goals for the shift include no falls The clinical goals for the shift include pain control Problem: Pain - Adult Goal: Verbalizes/displays adequate comfort level or baseline comfort level Outcome: Progressing Problem: Safety - Adult Goal: Free from fall injury Outcome: Progressing Problem: Discharge Planning Goal: Discharge to home or other facility with appropriate resources Outcome: Progressing Problem: Chronic Conditions and Co-morbidities Goal: Patient's chronic conditions and co-morbidity symptoms are monitored and maintained or improved Outcome: Progressing [facility] Work Phone: 10-13-2024 Note Formatting of this n ote might be different from the original. Patient continues afebrile with stable vital signs. He states his discomfort is much better than even this morning. He has begun making urine and it is lightening up in color. He states his abdomen feels a little bit less distended. He is probably getting rid of some of the third space in his retroperitoneum. I discussed again with him the fact that our options at this point would be to operate in which case I think abdominal closure would be very difficult and we would probably put in an ABThera and maintain him in the ICU for a couple of days and abated and then taken back for closure. I told him not operating he is improving but he may still abscess in his abdomen that may get better with antibiotics or could require separate procedure for that. He states he feels better and does not want an operation even if I could close his abdomen. He thinks it will get better because he feels so much better now. We will still maintain him n.p.o. for now and wait and see what his labs look like in the morning. He is also concerned because social services coordinator told him they expected him to be in the hospital for 24 to 48 hours and he thinks that Medicare is going to stop paying after that period of time. I assured him that they will continue to pay as long as it is medically necessary. [facility] Work Phone: 10-13-2024 Plan of care note Problem: Pain - Adult Goal: Verbalizes/displays adequate comfort level or baseline comfort level Outcome: Progressing Problem: Safety - Adult Goal: Free from fall injury Outcome: Progressing Problem: Discharge Planning Goal: Discharge to home or other facility with appropriate resources Outcome: Progressing Problem: Chronic Conditions and Co-morbidities Goal: Patient's chronic conditions and co-morbidity symptoms are monitored and maintained or improved Outcome: Progressing The patient's goals for the shift include pain control The clinical goals for the shift include no falls Over the shift, the patient did not make progress toward the following goals. Barriers to progression include . Recommendations to address these barriers include . [facility] Work Phone: 10-12-2024 Note Formatting of this n ote might be different from the original. Patient went down for CT-guided drain placement. No abscess was noted. The appendix is even that is dilated or air-filled. The radiologist believes that the appendicolith when it moved allowed the appendix itself drain directly into the colon. Now the inflammatory process is just resolving. When I went in to talk with the patient he was just bladder scanned and only had 20 mL in his bladder. He only had 25 that he passed earlier today. He is complaining of intense diarrhea and states he goes to the bathroom multiple times but only a small volume. His white count was up to 19,000 and with no abscess I think there is a good possibility he may have an infectious colitis. I have switched his antibiotics to Cipro Flagyl. We will keep him on 400 every 12 for now but if his creatinine is up much higher tomorrow we will switch switch him to every 24. I have sent stool studies and we will see if he has C. difficile. Nursing, infectious disease and the hospitalist were informed. [facility] Work Phone: 10-12-2024 History of Present illness Narrative Per medical team, patient is not yet medically appropriate for discharge today; will likely require another 48 hours in the hospital. Patient's current plan is to return home when medically ready with no Care Transitions needs foreseen. Care Transitions to follow and assist should any new needs arise. LEONEL Restrepo Sofya Cabrera is a 68 y.o. male on day 1 of admission presenting with Other acute appendicitis. Subjective Patient states his pain continues to improve although he is continuous still operator in his right lower quadrant. He is only taking Tylenol and Toradol for pain. He has had multiple loose stools. He states he is not making much urine when questioned. He has been afebrile. Blood pressure has been in the 90s but he is not tachycardic. Objective Physical Exam Constitutional: General: He is not in acute distress. Eyes: Conjunctiva/sclera: Conjunctivae normal. Cardiovascular: Rate and Rhythm: Normal rate. Pulmonary: Effort: Pulmonary effort is normal. Abdominal: Comments: Continues distended Neurological: General: No focal deficit present. Mental Status: He is alert. Last Recorded Vitals Blood pressure 92/57, pulse 76, temperature 36.1 C (97 F), temperature source Temporal, resp. rate 16, height 1.74 m (5' 8.5), weight 87.6 kg (193 lb 2 oz), SpO2 94%. Intake/Output last 3 Shifts: I/O last 3 completed shifts: In: 1895 (21.6 mL/kg) [I.V.:1645 (18.8 mL/kg); IV Piggyback:250] Out: - (0 mL/kg) Weight: 87.6 kg Relevant Results Results for orders placed or performed during the hospital encounter of 10/11/24 (from the past 24 hours) CBC Result Value Ref Range WBC 19.6 (H) 4.4 - 11.3 x10*3/uL nRBC 0.0 0.0 - 0.0 /100 WBCs RBC 3.91 (L) 4.50 - 5.90 x10*6/uL Hemoglobin 12.7 (L) 13.5 - 17.5 g/dL Hematocrit 38.3 (L) 41.0 - 52.0 % MCV 98 80 - 100 fL MCH 32.5 26.0 - 34.0 pg MCHC 33.2 32.0 - 36.0 g/dL RDW 12.1 11.5 - 14.5 % Platelets 205 150 - 450 x10*3/uL Basic metabolic panel Result Value Ref Range Glucose 108 (H) 74 - 99 mg/dL Sodium 138 136 - 145 mmol/L Potassium 4.1 3.5 - 5.3 mmol/L Chloride 101 98 - 107 mmol/L Bicarbonate 26 21 - 32 mmol/L Anion Gap 15 10 - 20 mmol/L Urea Nitrogen 32 (H) 6 - 23 mg/dL Creatinine 2.94 (H) 0.50 - 1.30 mg/dL eGFR 22 (L) >60 mL/min/1.73m*2 Calcium 8.5 (L) 8.6 - 10.3 mg/dL Assessment/Plan Assessment & Plan Other acute appendicitis Patient with perforated appendicitis with localized containment. White count is up a bit probably because he is abscessing. Plan had been to repeat the CT today and possibly percutaneously drain the area if the abscess was mature. However this morning his creatinine is up to 2.9. This is probably a combination from the CT as well as the loss is related to his diarrhea. I have switched his IVs to LR at 125 and I will give him a fluid bolus of 0.9. I have stopped his Toradol. I messaged the hospitalist so he could work up the acute kidney injury as well as adjust his other medicines. Patient was informed. He actually stated he did not need to take anything for pain and I told him if we stop the Tylenol he may become a little bit more sore. Honey Shi MD 10/11/24 1206 Discharge Planning Living Arrangements Spouse/significant other Support Systems Spouse/significant other Assistance Needed None Type of Residence Private residence Number of Stairs to Enter Residence 2 Number of Stairs Within Residence (Bedroom/bath on first floor) Do you have animals or pets at home? Yes Type of Animals or Pets 3 cats Who is requesting discharge planning? Provider Home or Post Acute Services None Expected Discharge Disposition Home Does the patient need discharge transport arranged? No Financial Resource Strain How hard is it for you to pay for the very basics like food, housing, medical care, and heating? Not hard Housing Stability In the last 12 months, was there a time when you were not able to pay the mortgage or rent on time? N In the past 12 months, how many times have you moved where you were living? 0 At any time in the past 12 months, were you homeless or living in a long-term (including now)? N Transportation Needs In the past 12 months, has lack of transportation kept you from medical appointments or from getting medications? no In the past 12 months, has lack of transportation kept you from meetings, work, or from getting things needed for daily living? No Intensity of Service Intensity of Service 0-30 min Care Transitions: Patient reviewed in care round meeting this AM, ADOD 48 hours. Met with patient at bedside for initial assessment. Role of TCC explained in discharge planning process. Demographics and contact verified. Resides with in a two story farmhouse, feels safe. PCP is Dr. Cleary in [place]. Preferred pharmacy is [facility] in [place]. Denies any difficulty obtaining/affording medications. He is independent at home with ADL's and does not use any DME equipment currently and denies the need for any. He is retired and drives self to appointments. [facility] . Medicare IMM reviewed, patient signed, copy provided, original placed in chart. Voiced understanding.. Discharge plan is to return home, denies needs or in home services. to transport home when discharged. Care team to follow. Colette Tony RN/TCC documented in this encounter [facility] Work Phone: 10-12-2024 Consult note Associated Order (s): IP CONSULT TO NEPHROLOGY Reason For Consult Acute kidney injury History Of Present Illness Sofya Cabrera is a 68 y.o. male presenting with abdominal pain. He presented to the emergency room secondary to abdominal pain. He states that this started on Tuesday. He states that since Tuesday he has not eaten or drinking really anything. He had a CT scan that showed appendicitis He denies taking NSAIDs at home He states that his pain is much better today He states he is urinating well Past Medical History He has no past medical history on file. Surgical History He has no past surgical history on file. Social History He reports that he has never smoked. He has never used smokeless tobacco. No history on file for alcohol use and drug use. Family History No family history on file. Allergies Patient has no known allergies. Review of Systems A full 10 point review of systems was obtained is negative except HPI as above Physical Exam Physical Exam Constitutional: Appearance: Normal appearance. HENT: Head: Normocephalic and atraumatic. Right Ear: External ear normal. Left Ear: External ear normal. Nose: Nose normal. Mouth/Throat: Mouth: Mucous membranes are moist. Pharynx: Oropharynx is clear. Eyes: Extraocular Movements: Extraocular movements intact. Conjunctiva/sclera: Conjunctivae normal. Pupils: Pupils are equal, round, and reactive to light. Cardiovascular: Rate and Rhythm: Normal rate and regular rhythm. Pulmonary: Effort: Pulmonary effort is normal. Breath sounds: Normal breath sounds. Abdominal: General: Abdomen is flat. Palpations: Abdomen is soft. Tenderness: There is abdominal tenderness. Skin: General: Skin is warm and dry. Neurological: General: No focal deficit present. Mental Status: He is alert and oriented to person, place, and time. Psychiatric: Mood and Affect: Mood normal. Behavior: Behavior normal. I&O 24HR Intake/Output Summary (Last 24 hours) at 10/12/2024 1000 Last data filed at 10/12/2024 0910 Gross per 24 hour Intake 2171.25 ml Output 25 ml Net 2146.25 ml Vitals 24HR Heart Rate: [76-100] Temp: [36.1 C (97 F)-37.2 C (99 F)] Resp: [16-18] BP: (92-112)/(57-68) SpO2: [91 %-94 %] Scheduled medications acetaminophen, 650 mg, oral, q6h Or acetaminophen, 650 mg, oral, q6h Or acetaminophen, 650 mg, rectal, q6h famotidine, 20 mg, intravenous, q12h JAMIR lisinopril, 40 mg, oral, Daily piperacillin-tazobactam, 3.375 g, intravenous, q6h Continuous medications lactated Ringer's, 125 mL/hr, Last Rate: 125 mL/hr (10/12/24 0741) PRN medications PRN medications: magnesium hydroxide, morphine, ondansetron ODT OR ondansetron, oxyCODONE Relevant Results Results reviewed Assessment/Plan Acute kidney injury Acute appendicitis Leukocytosis History of hypertension with relative hypotension here in the hospital Plan: At this time he is making urine volume status is stable He is on lactated Ringer's which I would continue I will discontinue lisinopril He was exposed to contrast was on an DELANO and did not eat or drink for approximately 5 days Thanks for the consult Assessment & Plan Other acute appendicitis Donte Becerra DO [facility] Work Phone: 10-12-2024 Consult note Associated Order (s): IP CONSULT TO NEPHROLOGY Reason For Consult Acute kidney injury History Of Present Illness Sofya Cabrera is a 68 y.o. male presenting with abdominal pain. He presented to the emergency room secondary to abdominal pain. He states that this started on Tuesday. He states that since Tuesday he has not eaten or drinking really anything. He had a CT scan that showed appendicitis He denies taking NSAIDs at home He states that his pain is much better today He states he is urinating well Past Medical History He has no past medical history on file. Surgical History He has no past surgical history on file. Social History He reports that he has never smoked. He has never used smokeless tobacco. No history on file for alcohol use and drug use. Family History No family history on file. Allergies Patient has no known allergies. Review of Systems A full 10 point review of systems was obtained is negative except HPI as above Physical Exam Physical Exam Constitutional: Appearance: Normal appearance. HENT: Head: Normocephalic and atraumatic. Right Ear: External ear normal. Left Ear: External ear normal. Nose: Nose normal. Mouth/Throat: Mouth: Mucous membranes are moist. Pharynx: Oropharynx is clear. Eyes: Extraocular Movements: Extraocular movements intact. Conjunctiva/sclera: Conjunctivae normal. Pupils: Pupils are equal, round, and reactive to light. Cardiovascular: Rate and Rhythm: Normal rate and regular rhythm. Pulmonary: Effort: Pulmonary effort is normal. Breath sounds: Normal breath sounds. Abdominal: General: Abdomen is flat. Palpations: Abdomen is soft. Tenderness: There is abdominal tenderness. Skin: General: Skin is warm and dry. Neurological: General: No focal deficit present. Mental Status: He is alert and oriented to person, place, and time. Psychiatric: Mood and Affect: Mood normal. Behavior: Behavior normal. I&O 24HR Intake/Output Summary (Last 24 hours) at 10/12/2024 1000 Last data filed at 10/12/2024 0910 Gross per 24 hour Intake 2171.25 ml Output 25 ml Net 2146.25 ml Vitals 24HR Heart Rate: [76-100] Temp: [36.1 C (97 F)-37.2 C (99 F)] Resp: [16-18] BP: (92-112)/(57-68) SpO2: [91 %-94 %] Scheduled medications acetaminophen, 650 mg, oral, q6h Or acetaminophen, 650 mg, oral, q6h Or acetaminophen, 650 mg, rectal, q6h famotidine, 20 mg, intravenous, q12h JAMIR lisinopril, 40 mg, oral, Daily piperacillin-tazobactam, 3.375 g, intravenous, q6h Continuous medications lactated Ringer's, 125 mL/hr, Last Rate: 125 mL/hr (10/12/24 0741) PRN medications PRN medications: magnesium hydroxide, morphine, ondansetron ODT OR ondansetron, oxyCODONE Relevant Results Results reviewed Assessment/Plan Acute kidney injury Acute appendicitis Leukocytosis History of hypertension with relative hypotension here in the hospital Plan: At this time he is making urine volume status is stable He is on lactated Ringer's which I would continue I will discontinue lisinopril He was exposed to contrast was on an DELANO and did not eat or drink for approximately 5 days Thanks for the consult Assessment & Plan Other acute appendicitis Donte Becerra DO Reason For Consult Perforated appendicitis History Of Present Illness Sofya Cabrera is a 68 y.o. male presenting with almost 3-day history of progressive right lower quadrant abdominal pain. He states when he came into the ER he was hurting but then it got much better and then since then has just gotten progressively worse. CT scan of the abdomen and pelvis was done which was suggestive of perforated appendicitis due to the amount of inflammation in the right lower quadrant. By my read of the CT scan I think you can see the appendicolith extruding slightly and distal to this the appendix is dilated and air-filled. Patient is seen this morning with his . He did receive some Toradol and states his pain is improving although it is still present in his right lower quadrant and is worse when he moves. He denies any nausea vomiting or change in bowel habits. He states he feels distended Past Medical History Hypertension Surgical History He has no past surgical history on file. Social History He reports that he has never smoked. He has never used smokeless tobacco. No history on file for alcohol use and drug use. Family History No family history on file. Allergies Patient has no known allergies. Review of Systems Constitutional: no fever, sweats, and chills Cardiovascular: No chest pain or palpitations Respiratory: No cough or shortness of breath Gastrointestinal: See HPI. He is also complaining of feeling distended Genitourinary: no dysuria or urinary frequency Musculoskeletal: no weakness or swelling Integumentary: no rashes Neurological: no confusion Endocrine: no heat or cold intolerance Heme/Lymph: no easy bruising or bleeding Physical Exam Constitutional: No acute distress, conversant, pleasant seen with his Neurologic: Alert and oriented Psych: Appropriate affect Ears, Nose, Mouth and Throat: mucus membranes moist Pulmonary: No labored breathing Cardiovascular: Regular rate and rhythm Abdomen: Soft, obese with slight distention. He is tender in his right lower quadrant. Musculoskeletal: Moves all extremities, no edema Skin: No jaundice Last Recorded Vitals Blood pressure 107/66, pulse 86, temperature 35.3 C (95.5 F), temperature source Temporal, resp. rate 20, height 1.74 m (5' 8.5), weight 87.6 kg (193 lb 2 oz), SpO2 90%. Relevant Results Latest Reference Range & Units 10/11/24 01:37 GLUCOSE 74 - 99 mg/dL 122 (H) SODIUM 136 - 145 mmol/L 133 (L) POTASSIUM 3.5 - 5.3 mmol/L 3.6 CHLORIDE 98 - 107 mmol/L 97 (L) Bicarbonate 21 - 32 mmol/L 27 Anion Gap 10 - 20 mmol/L 13 Blood Urea Nitrogen 6 - 23 mg/dL 11 Creatinine 0.50 - 1.30 mg/dL 1.01 EGFR >60 mL/min/1.73m*2 81 Calcium 8.6 - 10.3 mg/dL 9.4 Albumin 3.4 - 5.0 g/dL 4.3 Alkaline Phosphatase 33 - 136 U/L 68 ALT 10 - 52 U/L 16 AST 9 - 39 U/L 13 Bilirubin Total 0.0 - 1.2 mg/dL 1.1 Total Protein 6.4 - 8.2 g/dL 7.6 Lactate 0.4 - 2.0 mmol/L 1.3 LIPASE 9 - 82 U/L 14 WBC 4.4 - 11.3 x10*3/uL 16.1 (H) nRBC 0.0 - 0.0 /100 WBCs 0.0 RBC 4.50 - 5.90 x10*6/uL 4.15 (L) HEMOGLOBIN 13.5 - 17.5 g/dL 13.6 HEMATOCRIT 41.0 - 52.0 % 39.6 (L) MCV 80 - 100 fL 95 MCH 26.0 - 34.0 pg 32.8 MCHC 32.0 - 36.0 g/dL 34.3 RED CELL DISTRIBUTION WIDTH 11.5 - 14.5 % 11.8 Platelets 150 - 450 x10*3/uL 242 Neutrophils % 40.0 - 80.0 % 81.2 Immature Granulocytes %, Automated 0.0 - 0.9 % 0.3 Lymphocytes % 13.0 - 44.0 % 8.1 Monocytes % 2.0 - 10.0 % 9.9 Eosinophils % 0.0 - 6.0 % 0.2 Basophils % 0.0 - 2.0 % 0.3 Neutrophils Absolute 1.20 - 7.70 x10*3/uL 13.08 (H) Immature Granulocytes Absolute, Automated 0.00 - 0.70 x10*3/uL 0.05 Lymphocytes Absolute 1.20 - 4.80 x10*3/uL 1.30 Monocytes Absolute 0.10 - 1.00 x10*3/uL 1.60 (H) Eosinophils Absolute 0.00 - 0.70 x10*3/uL 0.03 Basophils Absolute 0.00 - 0.10 x10*3/uL 0.05 (H): Data is abnormally high (L): Data is abnormally low BONES: No acute fracture or aggressive osseous lesion. There is enlargement of the appendix with marked adjacent fat stranding suggesting perforated appendicitis. IMPRESSION: Acute perforated appendicitis. Signed by Richard Porter MD Result History Assessment/Plan Acute perforated appendicitis. I think it is highly likely he perforated after he got to the emergency room. He is still localized in his right lower quadrant. We discussed the fact at this point I feel his appendix may well be gangrenous and this would be quite a difficult operation with the inflammation and a necrotic appendix. We discussed diffuse peritonitis as well as the possibility of needing to open. He understands if the appendix free perforates today we will take him to the OR and handle what ever is there. Otherwise I think it may be prudent to try and get this contained to abscess with antibiotics. I have written for Tylenol in addition to the Toradol and he has some narcotics written including oxycodone. I explained he will be n.p.o. in the event we do need to operate. He states he is not hungry. I have told him that once this process resolves we probably should look to do an interval appendectomy. We will plan on repeat CT tomorrow to see if this can be drained and if it is not ready yet he understands he will need to stay in the hospital till Tuesday when we will do the drainage procedure. All questions were answered. Honey Shi MD documented in this encounter [facility] Work Phone: 10-12-2024 Consult note Associated Order (s): IP CONSULT TO NEPHROLOGY Reason For Consult Acute kidney injury History Of Present Illness Sofya Cabrera is a 68 y.o. male presenting with abdominal pain. He presented to the emergency room secondary to abdominal pain. He states that this started on Tuesday. He states that since Tuesday he has not eaten or drinking really anything. He had a CT scan that showed appendicitis He denies taking NSAIDs at home He states that his pain is much better today He states he is urinating well Past Medical History He has no past medical history on file. Surgical History He has no past surgical history on file. Social History He reports that he has never smoked. He has never used smokeless tobacco. No history on file for alcohol use and drug use. Family History No family history on file. Allergies Patient has no known allergies. Review of Systems A full 10 point review of systems was obtained is negative except HPI as above Physical Exam Physical Exam Constitutional: Appearance: Normal appearance. HENT: Head: Normocephalic and atraumatic. Right Ear: External ear normal. Left Ear: External ear normal. Nose: Nose normal. Mouth/Throat: Mouth: Mucous membranes are moist. Pharynx: Oropharynx is clear. Eyes: Extraocular Movements: Extraocular movements intact. Conjunctiva/sclera: Conjunctivae normal. Pupils: Pupils are equal, round, and reactive to light. Cardiovascular: Rate and Rhythm: Normal rate and regular rhythm. Pulmonary: Effort: Pulmonary effort is normal. Breath sounds: Normal breath sounds. Abdominal: General: Abdomen is flat. Palpations: Abdomen is soft. Tenderness: There is abdominal tenderness. Skin: General: Skin is warm and dry. Neurological: General: No focal deficit present. Mental Status: He is alert and oriented to person, place, and time. Psychiatric: Mood and Affect: Mood normal. Behavior: Behavior normal. I&O 24HR Intake/Output Summary (Last 24 hours) at 10/12/2024 1000 Last data filed at 10/12/2024 0910 Gross per 24 hour Intake 2171.25 ml Output 25 ml Net 2146.25 ml Vitals 24HR Heart Rate: [76-100] Temp: [36.1 C (97 F)-37.2 C (99 F)] Resp: [16-18] BP: (92-112)/(57-68) SpO2: [91 %-94 %] Scheduled medications acetaminophen, 650 mg, oral, q6h Or acetaminophen, 650 mg, oral, q6h Or acetaminophen, 650 mg, rectal, q6h famotidine, 20 mg, intravenous, q12h JAMIR lisinopril, 40 mg, oral, Daily piperacillin-tazobactam, 3.375 g, intravenous, q6h Continuous medications lactated Ringer's, 125 mL/hr, Last Rate: 125 mL/hr (10/12/24 0741) PRN medications PRN medications: magnesium hydroxide, morphine, ondansetron ODT OR ondansetron, oxyCODONE Relevant Results Results reviewed Assessment/Plan Acute kidney injury Acute appendicitis Leukocytosis History of hypertension with relative hypotension here in the hospital Plan: At this time he is making urine volume status is stable He is on lactated Ringer's which I would continue I will discontinue lisinopril He was exposed to contrast was on an DELANO and did not eat or drink for approximately 5 days Thanks for the consult Assessment & Plan Other acute appendicitis Donte Becerra DO Reason For Consult Perforated appendicitis History Of Present Illness Sofya Cabrera is a 68 y.o. male presenting with almost 3-day history of progressive right lower quadrant abdominal pain. He states when he came into the ER he was hurting but then it got much better and then since then has just gotten progressively worse. CT scan of the abdomen and pelvis was done which was suggestive of perforated appendicitis due to the amount of inflammation in the right lower quadrant. By my read of the CT scan I think you can see the appendicolith extruding slightly and distal to this the appendix is dilated and air-filled. Patient is seen this morning with his . He did receive some Toradol and states his pain is improving although it is still present in his right lower quadrant and is worse when he moves. He denies any nausea vomiting or change in bowel habits. He states he feels distended Past Medical History Hypertension Surgical History He has no past surgical history on file. Social History He reports that he has never smoked. He has never used smokeless tobacco. No history on file for alcohol use and drug use. Family History No family history on file. Allergies Patient has no known allergies. Review of Systems Constitutional: no fever, sweats, and chills Cardiovascular: No chest pain or palpitations Respiratory: No cough or shortness of breath Gastrointestinal: See HPI. He is also complaining of feeling distended Genitourinary: no dysuria or urinary frequency Musculoskeletal: no weakness or swelling Integumentary: no rashes Neurological: no confusion Endocrine: no heat or cold intolerance Heme/Lymph: no easy bruising or bleeding Physical Exam Constitutional: No acute distress, conversant, pleasant seen with his Neurologic: Alert and oriented Psych: Appropriate affect Ears, Nose, Mouth and Throat: mucus membranes moist Pulmonary: No labored breathing Cardiovascular: Regular rate and rhythm Abdomen: Soft, obese with slight distention. He is tender in his right lower quadrant. Musculoskeletal: Moves all extremities, no edema Skin: No jaundice Last Recorded Vitals Blood pressure 107/66, pulse 86, temperature 35.3 C (95.5 F), temperature source Temporal, resp. rate 20, height 1.74 m (5' 8.5), weight 87.6 kg (193 lb 2 oz), SpO2 90%. Relevant Results Latest Reference Range & Units 10/11/24 01:37 GLUCOSE 74 - 99 mg/dL 122 (H) SODIUM 136 - 145 mmol/L 133 (L) POTASSIUM 3.5 - 5.3 mmol/L 3.6 CHLORIDE 98 - 107 mmol/L 97 (L) Bicarbonate 21 - 32 mmol/L 27 Anion Gap 10 - 20 mmol/L 13 Blood Urea Nitrogen 6 - 23 mg/dL 11 Creatinine 0.50 - 1.30 mg/dL 1.01 EGFR >60 mL/min/1.73m*2 81 Calcium 8.6 - 10.3 mg/dL 9.4 Albumin 3.4 - 5.0 g/dL 4.3 Alkaline Phosphatase 33 - 136 U/L 68 ALT 10 - 52 U/L 16 AST 9 - 39 U/L 13 Bilirubin Total 0.0 - 1.2 mg/dL 1.1 Total Protein 6.4 - 8.2 g/dL 7.6 Lactate 0.4 - 2.0 mmol/L 1.3 LIPASE 9 - 82 U/L 14 WBC 4.4 - 11.3 x10*3/uL 16.1 (H) nRBC 0.0 - 0.0 /100 WBCs 0.0 RBC 4.50 - 5.90 x10*6/uL 4.15 (L) HEMOGLOBIN 13.5 - 17.5 g/dL 13.6 HEMATOCRIT 41.0 - 52.0 % 39.6 (L) MCV 80 - 100 fL 95 MCH 26.0 - 34.0 pg 32.8 MCHC 32.0 - 36.0 g/dL 34.3 RED CELL DISTRIBUTION WIDTH 11.5 - 14.5 % 11.8 Platelets 150 - 450 x10*3/uL 242 Neutrophils % 40.0 - 80.0 % 81.2 Immature Granulocytes %, Automated 0.0 - 0.9 % 0.3 Lymphocytes % 13.0 - 44.0 % 8.1 Monocytes % 2.0 - 10.0 % 9.9 Eosinophils % 0.0 - 6.0 % 0.2 Basophils % 0.0 - 2.0 % 0.3 Neutrophils Absolute 1.20 - 7.70 x10*3/uL 13.08 (H) Immature Granulocytes Absolute, Automated 0.00 - 0.70 x10*3/uL 0.05 Lymphocytes Absolute 1.20 - 4.80 x10*3/uL 1.30 Monocytes Absolute 0.10 - 1.00 x10*3/uL 1.60 (H) Eosinophils Absolute 0.00 - 0.70 x10*3/uL 0.03 Basophils Absolute 0.00 - 0.10 x10*3/uL 0.05 (H): Data is abnormally high (L): Data is abnormally low BONES: No acute fracture or aggressive osseous lesion. There is enlargement of the appendix with marked adjacent fat stranding suggesting perforated appendicitis. IMPRESSION: Acute perforated appendicitis. Signed by Richard Porter MD Result History Assessment/Plan Acute perforated appendicitis. I think it is highly likely he perforated after he got to the emergency room. He is still localized in his right lower quadrant. We discussed the fact at this point I feel his appendix may well be gangrenous and this would be quite a difficult operation with the inflammation and a necrotic appendix. We discussed diffuse peritonitis as well as the possibility of needing to open. He understands if the appendix free perforates today we will take him to the OR and handle what ever is there. Otherwise I think it may be prudent to try and get this contained to abscess with antibiotics. I have written for Tylenol in addition to the Toradol and he has some narcotics written including oxycodone. I explained he will be n.p.o. in the event we do need to operate. He states he is not hungry. I have told him that once this process resolves we probably should look to do an interval appendectomy. We will plan on repeat CT tomorrow to see if this can be drained and if it is not ready yet he understands he will need to stay in the hospital till Tuesday when we will do the drainage procedure. All questions were answered. Honey Shi MD documented in this encounter [facility] Work Phone: 10-12-2024 Plan of care note Problem: Pain - Adult Goal: Verbalizes/displays adequate comfort level or baseline comfort level Outcome: Progressing Problem: Safety - Adult Goal: Free from fall injury Outcome: Progressing Problem: Discharge Planning Goal: Discharge to home or other facility with appropriate resources Outcome: Progressing Problem: Chronic Conditions and Co-morbidities Goal: Patient's chronic conditions and co-morbidity symptoms are monitored and maintained or improved Outcome: Progressing The patient's goals for the shift include pain control The clinical goals for the shift include no falls Over the shift, the patient did not make progress toward the following goals. Barriers to progression include . Recommendations to address these barriers include . [facility] Work Phone: 10-12-2024 Miscellaneous Notes Problem: Pain - Adult Goal: Verbalizes/displays adequate comfort level or baseline comfort level Outcome: Progressing Problem: Safety - Adult Goal: Free from fall injury Outcome: Progressing Problem: Discharge Planning Goal: Discharge to home or other facility with appropriate resources Outcome: Progressing Problem: Chronic Conditions and Co-morbidities Goal: Patient's chronic conditions and co-morbidity symptoms are monitored and maintained or improved Outcome: Progressing The patient's goals for the shift include pain control The clinical goals for the shift include no falls Over the shift, the patient did not make progress toward the following goals. Barriers to progression include . Recommendations to address these barriers include . Stop by earlier this afternoon and patiently sleeping quite deeply and I did not wake him. He is awake just now when I went in. He states he feels better after sleeping. He states his pain is slowly improving and is still just in his right lower quadrant. His abdomen is slightly more distended. He is just having ice chips. He did pass some flatus. We will continue with the same plan. Patient was seen admitted overnight. Reviewed chart and agree with assessment plan. Problem: Pain - Adult Goal: Verbalizes/displays adequate comfort level or baseline comfort level Outcome: Progressing Problem: Safety - Adult Goal: Free from fall injury Outcome: Progressing Problem: Discharge Planning Goal: Discharge to home or other facility with appropriate resources Outcome: Progressing Problem: Chronic Conditions and Co-morbidities Goal: Patient's chronic conditions and co-morbidity symptoms are monitored and maintained or improved Outcome: Progressing The patient's goals for the shift include The clinical goals for the shift include no falls Over the shift, the patient did not make progress toward the following goals. Barriers to progression include . Recommendations to address these barriers include . Associated Problem(s): Other acute appendicitis 68-year-old male with a past medical history of hypertension, who presented to the emergency room for abdominal pain. CT scan of the abdomen and pelvis showed findings highly suspicious for an acute perforated appendicitis. Blood workup showed leukocytosis. Admit patient to the inpatient medical service with vital signs monitoring. Make the patient NPO. Consult general surgery. Continue with Zosyn 3.375 g IV every 6 hours scheduled. Give Toradol 15 mg IV every 6 hours scheduled. Additional morphine as needed for breakthrough pain. IV fluids normal saline at rate of 75 cc/hour. Repeat CBC and BMP tomorrow. Regarding his home medications, I will hold the hydrochlorothiazide but continue the lisinopril for now. SCDs for DVT prophylaxis Patient is full code Received call from the ER after CT was read which shows probable perforated appendicitis. I have reviewed the CT and would agree this does indeed look perforated just proximal to his appendicolith. It looks like the appendicolith is partially extruded from the appendix but blocking the distal portion where the appendix is dilated air-filled. I have recommended admission to the hospitalist service with IV antibiotics and possible drain placement Tuesday. I would recommend using Tylenol and Motrin for pain control with narcotics if necessary. If he free perforates this we will take him to surgery. documented in this encounter [facility] Work Phone: 10-11-2024 Note Formatting of this n ote might be different from the original. Stop by earlier this afternoon and patiently sleeping quite deeply and I did not wake him. He is awake just now when I went in. He states he feels better after sleeping. He states his pain is slowly improving and is still just in his right lower quadrant. His abdomen is slightly more distended. He is just having ice chips. He did pass some flatus. We will continue with the same plan. [facility] Work Phone: 10-11-2024 Note Formatting of this n ote might be different from the original. Stop by earlier this afternoon and patiently sleeping quite deeply and I did not wake him. He is awake just now when I went in. He states he feels better after sleeping. He states his pain is slowly improving and is still just in his right lower quadrant. His abdomen is slightly more distended. He is just having ice chips. He did pass some flatus. We will continue with the same plan. [facility] Work Phone: 10-11-2024 Note Formatting of this n ote might be different from the original. Patient was seen admitted overnight. Reviewed chart and agree with assessment plan. [facility] Work Phone: 10-11-2024 Note Formatting of this n ote might be different from the original. Patient was seen admitted overnight. Reviewed chart and agree with assessment plan. [facility] Work Phone: 10-11-2024 Consult note Formatting of th is note is different from the original. Reason For Consult Perforated appendicitis History Of Present Illness Sofya Cabrera is a 68 y.o. male presenting with almost 3-day history of progressive right lower quadrant abdominal pain. He states when he came into the ER he was hurting but then it got much better and then since then has just gotten progressively worse. CT scan of the abdomen and pelvis was done which was suggestive of perforated appendicitis due to the amount of inflammation in the right lower quadrant. By my read of the CT scan I think you can see the appendicolith extruding slightly and distal to this the appendix is dilated and air-filled. Patient is seen this morning with his . He did receive some Toradol and states his pain is improving although it is still present in his right lower quadrant and is worse when he moves. He denies any nausea vomiting or change in bowel habits. He states he feels distended Past Medical History Hypertension Surgical History He has no past surgical history on file. Social History He reports that he has never smoked. He has never used smokeless tobacco. No history on file for alcohol use and drug use. Family History No family history on file. Allergies Patient has no known allergies. Review of Systems Constitutional: no fever, sweats, and chills Cardiovascular: No chest pain or palpitations Respiratory: No cough or shortness of breath Gastrointestinal: See HPI. He is also complaining of feeling distended Genitourinary: no dysuria or urinary frequency Musculoskeletal: no weakness or swelling Integumentary: no rashes Neurological: no confusion Endocrine: no heat or cold intolerance Heme/Lymph: no easy bruising or bleeding Physical Exam Constitutional: No acute distress, conversant, pleasant seen with his Neurologic: Alert and oriented Psych: Appropriate affect Ears, Nose, Mouth and Throat: mucus membranes moist Pulmonary: No labored breathing Cardiovascular: Regular rate and rhythm Abdomen: Soft, obese with slight distention. He is tender in his right lower quadrant. Musculoskeletal: Moves all extremities, no edema Skin: No jaundice Last Recorded Vitals Blood pressure 107/66, pulse 86, temperature 35.3 C (95.5 F), temperature source Temporal, resp. rate 20, height 1.74 m (5' 8.5), weight 87.6 kg (193 lb 2 oz), SpO2 90%. Relevant Results Latest Reference Range & Units 10/11/24 01:37 GLUCOSE 74 - 99 mg/dL 122 (H) SODIUM 136 - 145 mmol/L 133 (L) POTASSIUM 3.5 - 5.3 mmol/L 3.6 CHLORIDE 98 - 107 mmol/L 97 (L) Bicarbonate 21 - 32 mmol/L 27 Anion Gap 10 - 20 mmol/L 13 Blood Urea Nitrogen 6 - 23 mg/dL 11 Creatinine 0.50 - 1.30 mg/dL 1.01 EGFR >60 mL/min/1.73m*2 81 Calcium 8.6 - 10.3 mg/dL 9.4 Albumin 3.4 - 5.0 g/dL 4.3 Alkaline Phosphatase 33 - 136 U/L 68 ALT 10 - 52 U/L 16 AST 9 - 39 U/L 13 Bilirubin Total 0.0 - 1.2 mg/dL 1.1 Total Protein 6.4 - 8.2 g/dL 7.6 Lactate 0.4 - 2.0 mmol/L 1.3 LIPASE 9 - 82 U/L 14 WBC 4.4 - 11.3 x10*3/uL 16.1 (H) nRBC 0.0 - 0.0 /100 WBCs 0.0 RBC 4.50 - 5.90 x10*6/uL 4.15 (L) HEMOGLOBIN 13.5 - 17.5 g/dL 13.6 HEMATOCRIT 41.0 - 52.0 % 39.6 (L) MCV 80 - 100 fL 95 MCH 26.0 - 34.0 pg 32.8 MCHC 32.0 - 36.0 g/dL 34.3 RED CELL DISTRIBUTION WIDTH 11.5 - 14.5 % 11.8 Platelets 150 - 450 x10*3/uL 242 Neutrophils % 40.0 - 80.0 % 81.2 Immature Granulocytes %, Automated 0.0 - 0.9 % 0.3 Lymphocytes % 13.0 - 44.0 % 8.1 Monocytes % 2.0 - 10.0 % 9.9 Eosinophils % 0.0 - 6.0 % 0.2 Basophils % 0.0 - 2.0 % 0.3 Neutrophils Absolute 1.20 - 7.70 x10*3/uL 13.08 (H) Immature Granulocytes Absolute, Automated 0.00 - 0.70 x10*3/uL 0.05 Lymphocytes Absolute 1.20 - 4.80 x10*3/uL 1.30 Monocytes Absolute 0.10 - 1.00 x10*3/uL 1.60 (H) Eosinophils Absolute 0.00 - 0.70 x10*3/uL 0.03 Basophils Absolute 0.00 - 0.10 x10*3/uL 0.05 (H): Data is abnormally high (L): Data is abnormally low BONES: No acute fracture or aggressive osseous lesion. There is enlargement of the appendix with marked adjacent fat stranding suggesting perforated appendicitis. IMPRESSION: Acute perforated appendicitis. Signed by Richard Porter MD Result History Assessment/Plan Acute perforated appendicitis. I think it is highly likely he perforated after he got to the emergency room. He is still localized in his right lower quadrant. We discussed the fact at this point I feel his appendix may well be gangrenous and this would be quite a difficult operation with the inflammation and a necrotic appendix. We discussed diffuse peritonitis as well as the possibility of needing to open. He understands if the appendix free perforates today we will take him to the OR and handle what ever is there. Otherwise I think it may be prudent to try and get this contained to abscess with antibiotics. I have written for Tylenol in addition to the Toradol and he has some narcotics written including oxycodone. I explained he will be n.p.o. in the event we do need to operate. He states he is not hungry. I have told him that once this process resolves we probably should look to do an interval appendectomy. We will plan on repeat CT tomorrow to see if this can be drained and if it is not ready yet he understands he will need to stay in the hospital till Tuesday when we will do the drainage procedure. All questions were answered. Honey Shi MD [facility] Work Phone: 10-11-2024 Plan of care note Problem: Pain - Adult Goal: Verbalizes/displays adequate comfort level or baseline comfort level Outcome: Progressing Problem: Safety - Adult Goal: Free from fall injury Outcome: Progressing Problem: Discharge Planning Goal: Discharge to home or other facility with appropriate resources Outcome: Progressing Problem: Chronic Conditions and Co-morbidities Goal: Patient's chronic conditions and co-morbidity symptoms are monitored and maintained or improved Outcome: Progressing The patient's goals for the shift include The clinical goals for the shift include no falls Over the shift, the patient did not make progress toward the following goals. Barriers to progression include . Recommendations to address these barriers include . [facility] Work Phone: 10-11-2024 Evaluation + Plan note Associated Problem(s): Other acute appendicitis 68-year-old male with a past medical history of hypertension, who presented to the emergency room for abdominal pain. CT scan of the abdomen and pelvis showed findings highly suspicious for an acute perforated appendicitis. Blood workup showed leukocytosis. Admit patient to the inpatient medical service with vital signs monitoring. Make the patient NPO. Consult general surgery. Continue with Zosyn 3.375 g IV every 6 hours scheduled. Give Toradol 15 mg IV every 6 hours scheduled. Additional morphine as needed for breakthrough pain. IV fluids normal saline at rate of 75 cc/hour. Repeat CBC and BMP tomorrow. Regarding his home medications, I will hold the hydrochlorothiazide but continue the lisinopril for now. SCDs for DVT prophylaxis Patient is full code [facility] Work Phone: 10-11-2024 History and physical note History Of Present Illness Sofya Cabrera is a 68 y.o. male Who presented to the emergency room for right lower quadrant abdominal pain. On presentation, vital signs grossly within normal meds. Pertinent findings on blood workup; WBC 16,100, and sodium 133. CT scan of the abdomen and pelvis showed findings highly suspicious for an acute perforated appendicitis. Patient was given in the emergency room IV morphine, Zosyn and IV fluids and then admitted to the medical service for further investigation and management. Upon encounter now, patient reports that he is still having the pain. He stated that the morphine did not help him much. He has been having the belly pain for the past 2 days. Mainly in the right lower quadrant. Progressively worsening. No fever or chills. No diarrhea. No nausea or vomiting. ROS 10 systems were reviewed and were negative except for those noted in the history of present illness. Past Medical History No past medical history on file. Pertinent medical history also documented in my below narrative Surgical History No past surgical history on file. Pertinent surgical history also documented in my below narrative Social History He has no history on file for tobacco use, alcohol use, and drug use. Family History No family history on file. Allergies Patient has no known allergies. Medications Prior to Admission Medication Sig Dispense Refill Last Dose/Taking hydroCHLOROthiazide (Microzide) 12.5 mg tablet Take 1 tablet (12.5 mg) by mouth once daily. lisinopril 40 mg tablet Take 1 tablet (40 mg) by mouth once daily. Last Recorded Vitals Blood pressure 148/76, pulse 82, temperature 37.3 C (99.2 F), temperature source Temporal, resp. rate 20, height 1.74 m (5' 8.5), weight 87.6 kg (193 lb 2 oz), SpO2 94%. Physical Exam Constitutional: General: He is not in acute distress. Appearance: He is ill-appearing. Comments: Awake alert and oriented x3 HENT: Mouth/Throat: Pharynx: Oropharynx is clear. Eyes: Pupils: Pupils are equal, round, and reactive to light. Cardiovascular: Rate and Rhythm: Normal rate and regular rhythm. Heart sounds: Normal heart sounds. Pulmonary: Effort: No respiratory distress. Breath sounds: Normal breath sounds. No wheezing or rhonchi. Abdominal: General: Abdomen is flat. Bowel sounds are normal. There is no distension. Palpations: Abdomen is soft. Tenderness: There is abdominal tenderness (Severe in the right lower quadrant). Musculoskeletal: General: No swelling. Skin: General: Skin is warm. Neurological: General: No focal deficit present. Psychiatric: Mood and Affect: Mood normal. Behavior: Behavior normal. Thought Content: Thought content normal. Judgment: Judgment normal. Relevant Results Results for orders placed or performed during the hospital encounter of 10/11/24 (from the past 24 hours) Lactate Result Value Ref Range Lactate 1.3 0.4 - 2.0 mmol/L Lipase Result Value Ref Range Lipase 14 9 - 82 U/L Comprehensive Metabolic Panel Result Value Ref Range Glucose 122 (H) 74 - 99 mg/dL Sodium 133 (L) 136 - 145 mmol/L Potassium 3.6 3.5 - 5.3 mmol/L Chloride 97 (L) 98 - 107 mmol/L Bicarbonate 27 21 - 32 mmol/L Anion Gap 13 10 - 20 mmol/L Urea Nitrogen 11 6 - 23 mg/dL Creatinine 1.01 0.50 - 1.30 mg/dL eGFR 81 >60 mL/min/1.73m*2 Calcium 9.4 8.6 - 10.3 mg/dL Albumin 4.3 3.4 - 5.0 g/dL Alkaline Phosphatase 68 33 - 136 U/L Total Protein 7.6 6.4 - 8.2 g/dL AST 13 9 - 39 U/L Bilirubin, Total 1.1 0.0 - 1.2 mg/dL ALT 16 10 - 52 U/L CBC and Auto Differential Result Value Ref Range WBC 16.1 (H) 4.4 - 11.3 x10*3/uL nRBC 0.0 0.0 - 0.0 /100 WBCs RBC 4.15 (L) 4.50 - 5.90 x10*6/uL Hemoglobin 13.6 13.5 - 17.5 g/dL Hematocrit 39.6 (L) 41.0 - 52.0 % MCV 95 80 - 100 fL MCH 32.8 26.0 - 34.0 pg MCHC 34.3 32.0 - 36.0 g/dL RDW 11.8 11.5 - 14.5 % Platelets 242 150 - 450 x10*3/uL Neutrophils % 81.2 40.0 - 80.0 % Immature Granulocytes %, Automated 0.3 0.0 - 0.9 % Lymphocytes % 8.1 13.0 - 44.0 % Monocytes % 9.9 2.0 - 10.0 % Eosinophils % 0.2 0.0 - 6.0 % Basophils % 0.3 0.0 - 2.0 % Neutrophils Absolute 13.08 (H) 1.20 - 7.70 x10*3/uL Immature Granulocytes Absolute, Automated 0.05 0.00 - 0.70 x10*3/uL Lymphocytes Absolute 1.30 1.20 - 4.80 x10*3/uL Monocytes Absolute 1.60 (H) 0.10 - 1.00 x10*3/uL Eosinophils Absolute 0.03 0.00 - 0.70 x10*3/uL Basophils Absolute 0.05 0.00 - 0.10 x10*3/uL Urinalysis with Reflex Culture and Microscopic Result Value Ref Range Color, Urine Light-Yellow Light-Yellow, Yellow, Dark-Yellow Appearance, Urine Clear Clear Specific [place], Urine 1.026 1.005 - 1.035 pH, Urine 6.5 5.0, 5.5, 6.0, 6.5, 7.0, 7.5, 8.0 Protein, Urine 10 (TRACE) NEGATIVE, 10 (TRACE), 20 (TRACE) mg/dL Glucose, Urine Normal Normal mg/dL Blood, Urine 0.06 (1+) (A) NEGATIVE Ketones, Urine NEGATIVE NEGATIVE mg/dL Bilirubin, Urine NEGATIVE NEGATIVE Urobilinogen, Urine Normal Normal mg/dL Nitrite, Urine NEGATIVE NEGATIVE Leukocyte Esterase, Urine NEGATIVE NEGATIVE Urinalysis Microscopic Result Value Ref Range WBC, Urine 1-5 1-5, NONE /HPF RBC, Urine 3-5 NONE, 1-2, 3-5 /HPF Mucus, Urine FEW Reference range not established. /LPF CT abdomen pelvis w IV contrast Addendum Date: 10/11/2024 (03:20) Zulma Mendez: [email or web address] will connect (03:22) Zulma Mendez: Sofya Quiros pt, Dr. Signed by Richard Porter MD Result Date: 10/11/2024 STUDY: CT Abdomen and Pelvis with IV Contrast; 10/11/2024 at 2:39 AM. INDICATION: Right lower quadrant abdominal pain. COMPARISON: None available. ACCESSION NUMBER(S): [id number] ORDERING CLINICIAN: JIMENEZ HUTCHINSON TECHNIQUE: CT of the abdomen and pelvis was performed. Contiguous axial images were obtained at 3 mm slice thickness through the abdomen and pelvis. Coronal and sagittal reconstructions at 3 mm slice thickness were performed. Omnipaque 350 67 mL was administered intravenously. FINDINGS: LOWER CHEST: No cardiomegaly. No pericardial effusion. Lung bases are clear. ABDOMEN: LIVER: No hepatomegaly. Multiple cysts are seen in the liver largest measures 2.5 cm. BILE DUCTS: No intrahepatic or extrahepatic biliary ductal dilatation. GALLBLADDER: The gallbladder is normal. STOMACH: No abnormalities identified. PANCREAS: No masses or ductal dilatation. SPLEEN: No splenomegaly or focal splenic lesion. ADRENAL GLANDS: No thickening or nodules. KIDNEYS AND URETERS: Bilateral renal cysts, the largest measures 3 cm. No renal or ureteral calculi. PELVIS: BLADDER: No abnormalities identified. REPRODUCTIVE ORGANS: No abnormalities identified. BOWEL: Diverticulosis of the colon. VESSELS: No abnormalities identified. Abdominal aorta is normal in caliber. PERITONEUM/RETROPERITONEUM/LYMPH NODES: No free fluid. No pneumoperitoneum. No lymphadenopathy. ABDOMINAL WALL: No abnormalities identified. SOFT TISSUES: No abnormalities identified. BONES: No acute fracture or aggressive osseous lesion. There is enlargement of the appendix with marked adjacent fat stranding suggesting perforated appendicitis. Acute perforated appendicitis. Signed by Richard Porter MD Assessment & Plan Other acute appendicitis 68-year-old male with a past medical history of hypertension, who presented to the emergency room for abdominal pain. CT scan of the abdomen and pelvis showed findings highly suspicious for an acute perforated appendicitis. Blood workup showed leukocytosis. Admit patient to the inpatient medical service with vital signs monitoring. Make the patient NPO. Consult general surgery. Continue with Zosyn 3.375 g IV every 6 hours scheduled. Give Toradol 15 mg IV every 6 hours scheduled. Additional morphine as needed for breakthrough pain. IV fluids normal saline at rate of 75 cc/hour. Repeat CBC and BMP tomorrow. Regarding his home medications, I will hold the hydrochlorothiazide but continue the lisinopril for now. SCDs for DVT prophylaxis Patient is full code (This note was generated with voice recognition software and may contain errors including spelling, grammar, syntax and misrecognition of what was dictated, that are not fully corrected) Enrrique Sadler MD [facility] Work Phone: 10-11-2024 History and physical note History Of Present Illness Sofya Cabrera is a 68 y.o. male Who presented to the emergency room for right lower quadrant abdominal pain. On presentation, vital signs grossly within normal meds. Pertinent findings on blood workup; WBC 16,100, and sodium 133. CT scan of the abdomen and pelvis showed findings highly suspicious for an acute perforated appendicitis. Patient was given in the emergency room IV morphine, Zosyn and IV fluids and then admitted to the medical service for further investigation and management. Upon encounter now, patient reports that he is still having the pain. He stated that the morphine did not help him much. He has been having the belly pain for the past 2 days. Mainly in the right lower quadrant. Progressively worsening. No fever or chills. No diarrhea. No nausea or vomiting. ROS 10 systems were reviewed and were negative except for those noted in the history of present illness. Past Medical History No past medical history on file. Pertinent medical history also documented in my below narrative Surgical History No past surgical history on file. Pertinent surgical history also documented in my below narrative Social History He has no history on file for tobacco use, alcohol use, and drug use. Family History No family history on file. Allergies Patient has no known allergies. Medications Prior to Admission Medication Sig Dispense Refill Last Dose/Taking hydroCHLOROthiazide (Microzide) 12.5 mg tablet Take 1 tablet (12.5 mg) by mouth once daily. lisinopril 40 mg tablet Take 1 tablet (40 mg) by mouth once daily. Last Recorded Vitals Blood pressure 148/76, pulse 82, temperature 37.3 C (99.2 F), temperature source Temporal, resp. rate 20, height 1.74 m (5' 8.5), weight 87.6 kg (193 lb 2 oz), SpO2 94%. Physical Exam Constitutional: General: He is not in acute distress. Appearance: He is ill-appearing. Comments: Awake alert and oriented x3 HENT: Mouth/Throat: Pharynx: Oropharynx is clear. Eyes: Pupils: Pupils are equal, round, and reactive to light. Cardiovascular: Rate and Rhythm: Normal rate and regular rhythm. Heart sounds: Normal heart sounds. Pulmonary: Effort: No respiratory distress. Breath sounds: Normal breath sounds. No wheezing or rhonchi. Abdominal: General: Abdomen is flat. Bowel sounds are normal. There is no distension. Palpations: Abdomen is soft. Tenderness: There is abdominal tenderness (Severe in the right lower quadrant). Musculoskeletal: General: No swelling. Skin: General: Skin is warm. Neurological: General: No focal deficit present. Psychiatric: Mood and Affect: Mood normal. Behavior: Behavior normal. Thought Content: Thought content normal. Judgment: Judgment normal. Relevant Results Results for orders placed or performed during the hospital encounter of 10/11/24 (from the past 24 hours) Lactate Result Value Ref Range Lactate 1.3 0.4 - 2.0 mmol/L Lipase Result Value Ref Range Lipase 14 9 - 82 U/L Comprehensive Metabolic Panel Result Value Ref Range Glucose 122 (H) 74 - 99 mg/dL Sodium 133 (L) 136 - 145 mmol/L Potassium 3.6 3.5 - 5.3 mmol/L Chloride 97 (L) 98 - 107 mmol/L Bicarbonate 27 21 - 32 mmol/L Anion Gap 13 10 - 20 mmol/L Urea Nitrogen 11 6 - 23 mg/dL Creatinine 1.01 0.50 - 1.30 mg/dL eGFR 81 >60 mL/min/1.73m*2 Calcium 9.4 8.6 - 10.3 mg/dL Albumin 4.3 3.4 - 5.0 g/dL Alkaline Phosphatase 68 33 - 136 U/L Total Protein 7.6 6.4 - 8.2 g/dL AST 13 9 - 39 U/L Bilirubin, Total 1.1 0.0 - 1.2 mg/dL ALT 16 10 - 52 U/L CBC and Auto Differential Result Value Ref Range WBC 16.1 (H) 4.4 - 11.3 x10*3/uL nRBC 0.0 0.0 - 0.0 /100 WBCs RBC 4.15 (L) 4.50 - 5.90 x10*6/uL Hemoglobin 13.6 13.5 - 17.5 g/dL Hematocrit 39.6 (L) 41.0 - 52.0 % MCV 95 80 - 100 fL MCH 32.8 26.0 - 34.0 pg MCHC 34.3 32.0 - 36.0 g/dL RDW 11.8 11.5 - 14.5 % Platelets 242 150 - 450 x10*3/uL Neutrophils % 81.2 40.0 - 80.0 % Immature Granulocytes %, Automated 0.3 0.0 - 0.9 % Lymphocytes % 8.1 13.0 - 44.0 % Monocytes % 9.9 2.0 - 10.0 % Eosinophils % 0.2 0.0 - 6.0 % Basophils % 0.3 0.0 - 2.0 % Neutrophils Absolute 13.08 (H) 1.20 - 7.70 x10*3/uL Immature Granulocytes Absolute, Automated 0.05 0.00 - 0.70 x10*3/uL Lymphocytes Absolute 1.30 1.20 - 4.80 x10*3/uL Monocytes Absolute 1.60 (H) 0.10 - 1.00 x10*3/uL Eosinophils Absolute 0.03 0.00 - 0.70 x10*3/uL Basophils Absolute 0.05 0.00 - 0.10 x10*3/uL Urinalysis with Reflex Culture and Microscopic Result Value Ref Range Color, Urine Light-Yellow Light-Yellow, Yellow, Dark-Yellow Appearance, Urine Clear Clear Specific [place], Urine 1.026 1.005 - 1.035 pH, Urine 6.5 5.0, 5.5, 6.0, 6.5, 7.0, 7.5, 8.0 Protein, Urine 10 (TRACE) NEGATIVE, 10 (TRACE), 20 (TRACE) mg/dL Glucose, Urine Normal Normal mg/dL Blood, Urine 0.06 (1+) (A) NEGATIVE Ketones, Urine NEGATIVE NEGATIVE mg/dL Bilirubin, Urine NEGATIVE NEGATIVE Urobilinogen, Urine Normal Normal mg/dL Nitrite, Urine NEGATIVE NEGATIVE Leukocyte Esterase, Urine NEGATIVE NEGATIVE Urinalysis Microscopic Result Value Ref Range WBC, Urine 1-5 1-5, NONE /HPF RBC, Urine 3-5 NONE, 1-2, 3-5 /HPF Mucus, Urine FEW Reference range not established. /LPF CT abdomen pelvis w IV contrast Addendum Date: 10/11/2024 (03:20) Zulma Mendez: augustus will connect (03:22) Zulma Mendez: Sofya Quiros pt, Dr. Signed by Richard Porter MD Result Date: 10/11/2024 STUDY: CT Abdomen and Pelvis with IV Contrast; 10/11/2024 at 2:39 AM. INDICATION: Right lower quadrant abdominal pain. COMPARISON: None available. ACCESSION NUMBER(S): [id number] ORDERING CLINICIAN: JIMENEZ HUTCHINSON TECHNIQUE: CT of the abdomen and pelvis was performed. Contiguous axial images were obtained at 3 mm slice thickness through the abdomen and pelvis. Coronal and sagittal reconstructions at 3 mm slice thickness were performed. Omnipaque 350 67 mL was administered intravenously. FINDINGS: LOWER CHEST: No cardiomegaly. No pericardial effusion. Lung bases are clear. ABDOMEN: LIVER: No hepatomegaly. Multiple cysts are seen in the liver largest measures 2.5 cm. BILE DUCTS: No intrahepatic or extrahepatic biliary ductal dilatation. GALLBLADDER: The gallbladder is normal. STOMACH: No abnormalities identified. PANCREAS: No masses or ductal dilatation. SPLEEN: No splenomegaly or focal splenic lesion. ADRENAL GLANDS: No thickening or nodules. KIDNEYS AND URETERS: Bilateral renal cysts, the largest measures 3 cm. No renal or ureteral calculi. PELVIS: BLADDER: No abnormalities identified. REPRODUCTIVE ORGANS: No abnormalities identified. BOWEL: Diverticulosis of the colon. VESSELS: No abnormalities identified. Abdominal aorta is normal in caliber. PERITONEUM/RETROPERITONEUM/LYMPH NODES: No free fluid. No pneumoperitoneum. No lymphadenopathy. ABDOMINAL WALL: No abnormalities identified. SOFT TISSUES: No abnormalities identified. BONES: No acute fracture or aggressive osseous lesion. There is enlargement of the appendix with marked adjacent fat stranding suggesting perforated appendicitis. Acute perforated appendicitis. Signed by Richard Porter MD Assessment & Plan Other acute appendicitis 68-year-old male with a past medical history of hypertension, who presented to the emergency room for abdominal pain. CT scan of the abdomen and pelvis showed findings highly suspicious for an acute perforated appendicitis. Blood workup showed leukocytosis. Admit patient to the inpatient medical service with vital signs monitoring. Make the patient NPO. Consult general surgery. Continue with Zosyn 3.375 g IV every 6 hours scheduled. Give Toradol 15 mg IV every 6 hours scheduled. Additional morphine as needed for breakthrough pain. IV fluids normal saline at rate of 75 cc/hour. Repeat CBC and BMP tomorrow. Regarding his home medications, I will hold the hydrochlorothiazide but continue the lisinopril for now. SCDs for DVT prophylaxis Patient is full code (This note was generated with voice recognition software and may contain errors including spelling, grammar, syntax and misrecognition of what was dictated, that are not fully corrected) Enrrique Sadler MD documented in this encounter [facility] Work Phone: 10-11-2024 History and physical note History Of Present Illness Sofya Cabrera is a 68 y.o. male Who presented to the emergency room for right lower quadrant abdominal pain. On presentation, vital signs grossly within normal meds. Pertinent findings on blood workup; WBC 16,100, and sodium 133. CT scan of the abdomen and pelvis showed findings highly suspicious for an acute perforated appendicitis. Patient was given in the emergency room IV morphine, Zosyn and IV fluids and then admitted to the medical service for further investigation and management. Upon encounter now, patient reports that he is still having the pain. He stated that the morphine did not help him much. He has been having the belly pain for the past 2 days. Mainly in the right lower quadrant. Progressively worsening. No fever or chills. No diarrhea. No nausea or vomiting. ROS 10 systems were reviewed and were negative except for those noted in the history of present illness. Past Medical History No past medical history on file. Pertinent medical history also documented in my below narrative Surgical History No past surgical history on file. Pertinent surgical history also documented in my below narrative Social History He has no history on file for tobacco use, alcohol use, and drug use. Family History No family history on file. Allergies Patient has no known allergies. Medications Prior to Admission Medication Sig Dispense Refill Last Dose/Taking hydroCHLOROthiazide (Microzide) 12.5 mg tablet Take 1 tablet (12.5 mg) by mouth once daily. lisinopril 40 mg tablet Take 1 tablet (40 mg) by mouth once daily. Last Recorded Vitals Blood pressure 148/76, pulse 82, temperature 37.3 C (99.2 F), temperature source Temporal, resp. rate 20, height 1.74 m (5' 8.5), weight 87.6 kg (193 lb 2 oz), SpO2 94%. Physical Exam Constitutional: General: He is not in acute distress. Appearance: He is ill-appearing. Comments: Awake alert and oriented x3 HENT: Mouth/Throat: Pharynx: Oropharynx is clear. Eyes: Pupils: Pupils are equal, round, and reactive to light. Cardiovascular: Rate and Rhythm: Normal rate and regular rhythm. Heart sounds: Normal heart sounds. Pulmonary: Effort: No respiratory distress. Breath sounds: Normal breath sounds. No wheezing or rhonchi. Abdominal: General: Abdomen is flat. Bowel sounds are normal. There is no distension. Palpations: Abdomen is soft. Tenderness: There is abdominal tenderness (Severe in the right lower quadrant). Musculoskeletal: General: No swelling. Skin: General: Skin is warm. Neurological: General: No focal deficit present. Psychiatric: Mood and Affect: Mood normal. Behavior: Behavior normal. Thought Content: Thought content normal. Judgment: Judgment normal. Relevant Results Results for orders placed or performed during the hospital encounter of 10/11/24 (from the past 24 hours) Lactate Result Value Ref Range Lactate 1.3 0.4 - 2.0 mmol/L Lipase Result Value Ref Range Lipase 14 9 - 82 U/L Comprehensive Metabolic Panel Result Value Ref Range Glucose 122 (H) 74 - 99 mg/dL Sodium 133 (L) 136 - 145 mmol/L Potassium 3.6 3.5 - 5.3 mmol/L Chloride 97 (L) 98 - 107 mmol/L Bicarbonate 27 21 - 32 mmol/L Anion Gap 13 10 - 20 mmol/L Urea Nitrogen 11 6 - 23 mg/dL Creatinine 1.01 0.50 - 1.30 mg/dL eGFR 81 >60 mL/min/1.73m*2 Calcium 9.4 8.6 - 10.3 mg/dL Albumin 4.3 3.4 - 5.0 g/dL Alkaline Phosphatase 68 33 - 136 U/L Total Protein 7.6 6.4 - 8.2 g/dL AST 13 9 - 39 U/L Bilirubin, Total 1.1 0.0 - 1.2 mg/dL ALT 16 10 - 52 U/L CBC and Auto Differential Result Value Ref Range WBC 16.1 (H) 4.4 - 11.3 x10*3/uL nRBC 0.0 0.0 - 0.0 /100 WBCs RBC 4.15 (L) 4.50 - 5.90 x10*6/uL Hemoglobin 13.6 13.5 - 17.5 g/dL Hematocrit 39.6 (L) 41.0 - 52.0 % MCV 95 80 - 100 fL MCH 32.8 26.0 - 34.0 pg MCHC 34.3 32.0 - 36.0 g/dL RDW 11.8 11.5 - 14.5 % Platelets 242 150 - 450 x10*3/uL Neutrophils % 81.2 40.0 - 80.0 % Immature Granulocytes %, Automated 0.3 0.0 - 0.9 % Lymphocytes % 8.1 13.0 - 44.0 % Monocytes % 9.9 2.0 - 10.0 % Eosinophils % 0.2 0.0 - 6.0 % Basophils % 0.3 0.0 - 2.0 % Neutrophils Absolute 13.08 (H) 1.20 - 7.70 x10*3/uL Immature Granulocytes Absolute, Automated 0.05 0.00 - 0.70 x10*3/uL Lymphocytes Absolute 1.30 1.20 - 4.80 x10*3/uL Monocytes Absolute 1.60 (H) 0.10 - 1.00 x10*3/uL Eosinophils Absolute 0.03 0.00 - 0.70 x10*3/uL Basophils Absolute 0.05 0.00 - 0.10 x10*3/uL Urinalysis with Reflex Culture and Microscopic Result Value Ref Range Color, Urine Light-Yellow Light-Yellow, Yellow, Dark-Yellow Appearance, Urine Clear Clear Specific [place], Urine 1.026 1.005 - 1.035 pH, Urine 6.5 5.0, 5.5, 6.0, 6.5, 7.0, 7.5, 8.0 Protein, Urine 10 (TRACE) NEGATIVE, 10 (TRACE), 20 (TRACE) mg/dL Glucose, Urine Normal Normal mg/dL Blood, Urine 0.06 (1+) (A) NEGATIVE Ketones, Urine NEGATIVE NEGATIVE mg/dL Bilirubin, Urine NEGATIVE NEGATIVE Urobilinogen, Urine Normal Normal mg/dL Nitrite, Urine NEGATIVE NEGATIVE Leukocyte Esterase, Urine NEGATIVE NEGATIVE Urinalysis Microscopic Result Value Ref Range WBC, Urine 1-5 1-5, NONE /HPF RBC, Urine 3-5 NONE, 1-2, 3-5 /HPF Mucus, Urine FEW Reference range not established. /LPF CT abdomen pelvis w IV contrast Addendum Date: 10/11/2024 (03:20) Zulma Mendez: grafton will connect (03:22) Zulma Mendez: Sofya Quiros pt, Dr. Signed by Richard Porter MD Result Date: 10/11/2024 STUDY: CT Abdomen and Pelvis with IV Contrast; 10/11/2024 at 2:39 AM. INDICATION: Right lower quadrant abdominal pain. COMPARISON: None available. ACCESSION NUMBER(S): [id number] ORDERING CLINICIAN: JIMENEZ HUTCHINSON TECHNIQUE: CT of the abdomen and pelvis was performed. Contiguous axial images were obtained at 3 mm slice thickness through the abdomen and pelvis. Coronal and sagittal reconstructions at 3 mm slice thickness were performed. Omnipaque 350 67 mL was administered intravenously. FINDINGS: LOWER CHEST: No cardiomegaly. No pericardial effusion. Lung bases are clear. ABDOMEN: LIVER: No hepatomegaly. Multiple cysts are seen in the liver largest measures 2.5 cm. BILE DUCTS: No intrahepatic or extrahepatic biliary ductal dilatation. GALLBLADDER: The gallbladder is normal. STOMACH: No abnormalities identified. PANCREAS: No masses or ductal dilatation. SPLEEN: No splenomegaly or focal splenic lesion. ADRENAL GLANDS: No thickening or nodules. KIDNEYS AND URETERS: Bilateral renal cysts, the largest measures 3 cm. No renal or ureteral calculi. PELVIS: BLADDER: No abnormalities identified. REPRODUCTIVE ORGANS: No abnormalities identified. BOWEL: Diverticulosis of the colon. VESSELS: No abnormalities identified. Abdominal aorta is normal in caliber. PERITONEUM/RETROPERITONEUM/LYMPH NODES: No free fluid. No pneumoperitoneum. No lymphadenopathy. ABDOMINAL WALL: No abnormalities identified. SOFT TISSUES: No abnormalities identified. BONES: No acute fracture or aggressive osseous lesion. There is enlargement of the appendix with marked adjacent fat stranding suggesting perforated appendicitis. Acute perforated appendicitis. Signed by Richard Porter MD Assessment & Plan Other acute appendicitis 68-year-old male with a past medical history of hypertension, who presented to the emergency room for abdominal pain. CT scan of the abdomen and pelvis showed findings highly suspicious for an acute perforated appendicitis. Blood workup showed leukocytosis. Admit patient to the inpatient medical service with vital signs monitoring. Make the patient NPO. Consult general surgery. Continue with Zosyn 3.375 g IV every 6 hours scheduled. Give Toradol 15 mg IV every 6 hours scheduled. Additional morphine as needed for breakthrough pain. IV fluids normal saline at rate of 75 cc/hour. Repeat CBC and BMP tomorrow. Regarding his home medications, I will hold the hydrochlorothiazide but continue the lisinopril for now. SCDs for DVT prophylaxis Patient is full code (This note was generated with voice recognition software and may contain errors including spelling, grammar, syntax and misrecognition of what was dictated, that are not fully corrected) Enrrique Sadler MD documented in this encounter [facility] Work Phone: 10-11-2024 Note Formatting of this n ote might be different from the original. Received call from the ER after CT was read which shows probable perforated appendicitis. I have reviewed the CT and would agree this does indeed look perforated just proximal to his appendicolith. It looks like the appendicolith is partially extruded from the appendix but blocking the distal portion where the appendix is dilated air-filled. I have recommended admission to the hospitalist service with IV antibiotics and possible drain placement Tuesday. I would recommend using Tylenol and Motrin for pain control with narcotics if necessary. If he free perforates this we will take him to surgery. [facility] Work Phone: 10-11-2024 Note Formatting of this n ote might be different from the original. Received call from the ER after CT was read which shows probable perforated appendicitis. I have reviewed the CT and would agree this does indeed look perforated just proximal to his appendicolith. It looks like the appendicolith is partially extruded from the appendix but blocking the distal portion where the appendix is dilated air-filled. I have recommended admission to the hospitalist service with IV antibiotics and possible drain placement Tuesday. I would recommend using Tylenol and Motrin for pain control with narcotics if necessary. If he free perforates this we will take him to surgery. [facility] Work Phone: 10-11-2024 Emergency department Note Images from the original note were not included. Abdominal pain. This 68-year-old white male presents to the ED with complaint of 2-1/2-day history of abdominal pain symptoms. He indicates that the pain currently is looking in the right lower quadrant he states the pain initially started in the upper quadrants and seems to have migrated down. He states that he has had a decrease in his appetite since onset of symptoms. He states that nothing seems to make his symptoms better. He states that walking around and moving does make his symptoms worse. He denies any associated nausea or vomiting. He states that he has never had abdominal surgeries previously. He states that his last colonoscopy was years ago. Patient admits to history of hypertension. He also admits to daily use of alcohol. 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 Constitutional: General: He is awake. Appearance: Normal appearance. He is overweight. HENT: Head: Normocephalic and atraumatic. Right Ear: Hearing and external ear normal. Left Ear: Hearing and external ear normal. Nose: Nose normal. No congestion or rhinorrhea. Mouth/Throat: Mouth: Mucous membranes are moist. Pharynx: Oropharynx is clear. Uvula midline. No oropharyngeal exudate or posterior oropharyngeal erythema. Eyes: General: Lids are normal. Vision grossly intact. Right eye: No discharge. Left eye: No discharge. Extraocular Movements: Extraocular movements intact. Conjunctiva/sclera: Conjunctivae normal. Pupils: Pupils are equal, round, and reactive to light. Cardiovascular: Rate and Rhythm: Normal rate and regular rhythm. Pulses: Normal pulses. Heart sounds: Normal heart sounds. No murmur heard. No friction rub. No gallop. Pulmonary: Effort: Pulmonary effort is normal. No respiratory distress. Breath sounds: Normal breath sounds. No stridor. No wheezing, rhonchi or rales. Chest: Chest wall: No tenderness. Abdominal: General: Abdomen is flat. Bowel sounds are normal. There is no distension. Palpations: Abdomen is soft. There is no mass. Tenderness: There is abdominal tenderness in the right lower quadrant. There is no guarding or rebound. Positive signs include Rovsing's sign and McBurney's sign. Hernia: No hernia is present. Musculoskeletal: General: No swelling, tenderness, deformity or signs of injury. Normal range of motion. Cervical back: Full passive range of motion without pain, normal range of motion and neck supple. Right lower leg: Normal. No edema. Left lower leg: Normal. No edema. Skin: General: Skin is warm and dry. Capillary Refill: Capillary refill takes less than 2 seconds. Coloration: Skin is not jaundiced or pale. Findings: No bruising, erythema, lesion or rash. Neurological: General: No focal deficit present. Mental Status: He is alert and oriented to person, place, and time. GCS: GCS eye subscore is 4. GCS verbal subscore is 5. GCS motor subscore is 6. Cranial Nerves: Cranial nerves 2-12 are intact. No cranial nerve deficit. Sensory: Sensation is intact. No sensory deficit. Motor: Motor function is intact. No weakness. Coordination: Coordination is intact. Coordination normal. Deep Tendon Reflexes: Reflexes normal. Psychiatric: Attention and Perception: Attention and perception normal. Mood and Affect: Mood and affect normal. Speech: Speech normal. Behavior: Behavior normal. Behavior is cooperative. Thought Content: Thought content normal. Cognition and Memory: Cognition and memory normal. Judgment: Judgment normal. Labs Reviewed COMPREHENSIVE METABOLIC PANEL - Abnormal Result Value Glucose 122 (*) Sodium 133 (*) Potassium 3.6 Chloride 97 (*) Bicarbonate 27 Anion Gap 13 Urea Nitrogen 11 Creatinine 1.01 eGFR 81 Calcium 9.4 Albumin 4.3 Alkaline Phosphatase 68 Total Protein 7.6 AST 13 Bilirubin, Total 1.1 ALT 16 CBC WITH AUTO DIFFERENTIAL - Abnormal WBC 16.1 (*) nRBC 0.0 RBC 4.15 (*) Hemoglobin 13.6 Hematocrit 39.6 (*) MCV 95 MCH 32.8 MCHC 34.3 RDW 11.8 Platelets 242 Neutrophils % 81.2 Immature Granulocytes %, Automated 0.3 Lymphocytes % 8.1 Monocytes % 9.9 Eosinophils % 0.2 Basophils % 0.3 Neutrophils Absolute 13.08 (*) Immature Granulocytes Absolute, Automated 0.05 Lymphocytes Absolute 1.30 Monocytes Absolute 1.60 (*) Eosinophils Absolute 0.03 Basophils Absolute 0.05 URINALYSIS WITH REFLEX CULTURE AND MICROSCOPIC - Abnormal Color, Urine Light-Yellow Appearance, Urine Clear Specific [place], Urine 1.026 pH, Urine 6.5 Protein, Urine 10 (TRACE) Glucose, Urine Normal Blood, Urine 0.06 (1+) (*) Ketones, Urine NEGATIVE Bilirubin, Urine NEGATIVE Urobilinogen, Urine Normal Nitrite, Urine NEGATIVE Leukocyte Esterase, Urine NEGATIVE LACTATE - Normal Lactate 1.3 Narrative: Venipuncture immediately after or during the administration of Metamizole may lead to falsely low results. Testing should be performed immediately prior to Metamizole dosing. LIPASE - Normal Lipase 14 Narrative: Venipuncture immediately after or during the administration of Metamizole may lead to falsely low results. Testing should be performed immediately prior to Metamizole dosing. URINALYSIS WITH REFLEX CULTURE AND MICROSCOPIC Narrative: The following orders were created for panel order Urinalysis with Reflex Culture and Microscopic. Procedure Abnormality Status --------- ------ Urinalysis with Reflex C...[[id number]] Abnormal Final result Extra Urine Gutiérrez Tube[[id number]] Please view results for these tests on the individual orders. EXTRA URINE GUTIÉRREZ TUBE URINALYSIS MICROSCOPIC WITH REFLEX CULTURE WBC, Urine 1-5 RBC, Urine 3-5 Mucus, Urine FEW CT abdomen pelvis w IV contrast Final Result Addendum (preliminary) (03:20) Zulma Mendez: okay will connect (03:22) Zulma Mendez: re Sofya Oliver Dr. Signed by Richard Porter MD Final Acute perforated appendicitis. Signed by Richard Porter MD Procedures Medical Decision Making At 3:22 AM I was contacted by the radiologist concerning the CT scan results. He states that he appears to be in no acute perforated appendicitis. I did have a discussion with patient and his concerning his CT scan results and ordered IV Zosyn and contacted Dr. Shi-general surgeon on-call concerning this patient. She wants to look at the CT scan imaging before she makes a decision what to do next. I was contacted by Dr. Shi and she wanted the patient to be admitted to internal medicine service with plan for IV antibiotics with possible drain placement on Tuesday. She also suggested treatment with Tylenol and ibuprofen for pain. Had a discussion with the patient and patient's concerning plan of care and discussed the case with internal medicine prior to admitting the patient to the hospital. Diagnoses as of 10/11/24456 Other acute appendicitis Jimenez Hutchinson DO 10/11/24456 documented in this encounter [facility] Work Phone: 10-11-2024 Emergency department Note Images from the original note were not included. Abdominal pain. This 68-year-old white male presents to the ED with complaint of 2-1/2-day history of abdominal pain symptoms. He indicates that the pain currently is looking in the right lower quadrant he states the pain initially started in the upper quadrants and seems to have migrated down. He states that he has had a decrease in his appetite since onset of symptoms. He states that nothing seems to make his symptoms better. He states that walking around and moving does make his symptoms worse. He denies any associated nausea or vomiting. He states that he has never had abdominal surgeries previously. He states that his last colonoscopy was years ago. Patient admits to history of hypertension. He also admits to daily use of alcohol. 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 Constitutional: General: He is awake. Appearance: Normal appearance. He is overweight. HENT: Head: Normocephalic and atraumatic. Right Ear: Hearing and external ear normal. Left Ear: Hearing and external ear normal. Nose: Nose normal. No congestion or rhinorrhea. Mouth/Throat: Mouth: Mucous membranes are moist. Pharynx: Oropharynx is clear. Uvula midline. No oropharyngeal exudate or posterior oropharyngeal erythema. Eyes: General: Lids are normal. Vision grossly intact. Right eye: No discharge. Left eye: No discharge. Extraocular Movements: Extraocular movements intact. Conjunctiva/sclera: Conjunctivae normal. Pupils: Pupils are equal, round, and reactive to light. Cardiovascular: Rate and Rhythm: Normal rate and regular rhythm. Pulses: Normal pulses. Heart sounds: Normal heart sounds. No murmur heard. No friction rub. No gallop. Pulmonary: Effort: Pulmonary effort is normal. No respiratory distress. Breath sounds: Normal breath sounds. No stridor. No wheezing, rhonchi or rales. Chest: Chest wall: No tenderness. Abdominal: General: Abdomen is flat. Bowel sounds are normal. There is no distension. Palpations: Abdomen is soft. There is no mass. Tenderness: There is abdominal tenderness in the right lower quadrant. There is no guarding or rebound. Positive signs include Rovsing's sign and McBurney's sign. Hernia: No hernia is present. Musculoskeletal: General: No swelling, tenderness, deformity or signs of injury. Normal range of motion. Cervical back: Full passive range of motion without pain, normal range of motion and neck supple. Right lower leg: Normal. No edema. Left lower leg: Normal. No edema. Skin: General: Skin is warm and dry. Capillary Refill: Capillary refill takes less than 2 seconds. Coloration: Skin is not jaundiced or pale. Findings: No bruising, erythema, lesion or rash. Neurological: General: No focal deficit present. Mental Status: He is alert and oriented to person, place, and time. GCS: GCS eye subscore is 4. GCS verbal subscore is 5. GCS motor subscore is 6. Cranial Nerves: Cranial nerves 2-12 are intact. No cranial nerve deficit. Sensory: Sensation is intact. No sensory deficit. Motor: Motor function is intact. No weakness. Coordination: Coordination is intact. Coordination normal. Deep Tendon Reflexes: Reflexes normal. Psychiatric: Attention and Perception: Attention and perception normal. Mood and Affect: Mood and affect normal. Speech: Speech normal. Behavior: Behavior normal. Behavior is cooperative. Thought Content: Thought content normal. Cognition and Memory: Cognition and memory normal. Judgment: Judgment normal. Labs Reviewed COMPREHENSIVE METABOLIC PANEL - Abnormal Result Value Glucose 122 (*) Sodium 133 (*) Potassium 3.6 Chloride 97 (*) Bicarbonate 27 Anion Gap 13 Urea Nitrogen 11 Creatinine 1.01 eGFR 81 Calcium 9.4 Albumin 4.3 Alkaline Phosphatase 68 Total Protein 7.6 AST 13 Bilirubin, Total 1.1 ALT 16 CBC WITH AUTO DIFFERENTIAL - Abnormal WBC 16.1 (*) nRBC 0.0 RBC 4.15 (*) Hemoglobin 13.6 Hematocrit 39.6 (*) MCV 95 MCH 32.8 MCHC 34.3 RDW 11.8 Platelets 242 Neutrophils % 81.2 Immature Granulocytes %, Automated 0.3 Lymphocytes % 8.1 Monocytes % 9.9 Eosinophils % 0.2 Basophils % 0.3 Neutrophils Absolute 13.08 (*) Immature Granulocytes Absolute, Automated 0.05 Lymphocytes Absolute 1.30 Monocytes Absolute 1.60 (*) Eosinophils Absolute 0.03 Basophils Absolute 0.05 URINALYSIS WITH REFLEX CULTURE AND MICROSCOPIC - Abnormal Color, Urine Light-Yellow Appearance, Urine Clear Specific [place], Urine 1.026 pH, Urine 6.5 Protein, Urine 10 (TRACE) Glucose, Urine Normal Blood, Urine 0.06 (1+) (*) Ketones, Urine NEGATIVE Bilirubin, Urine NEGATIVE Urobilinogen, Urine Normal Nitrite, Urine NEGATIVE Leukocyte Esterase, Urine NEGATIVE LACTATE - Normal Lactate 1.3 Narrative: Venipuncture immediately after or during the administration of Metamizole may lead to falsely low results. Testing should be performed immediately prior to Metamizole dosing. LIPASE - Normal Lipase 14 Narrative: Venipuncture immediately after or during the administration of Metamizole may lead to falsely low results. Testing should be performed immediately prior to Metamizole dosing. URINALYSIS WITH REFLEX CULTURE AND MICROSCOPIC Narrative: The following orders were created for panel order Urinalysis with Reflex Culture and Microscopic. Procedure Abnormality Status --------- ------ Urinalysis with Reflex C...[[id number]] Abnormal Final result Extra Urine Gutiérrez Tube[[id number]] Please view results for these tests on the individual orders. EXTRA URINE GUTIÉRREZ TUBE URINALYSIS MICROSCOPIC WITH REFLEX CULTURE WBC, Urine 1-5 RBC, Urine 3-5 Mucus, Urine FEW CT abdomen pelvis w IV contrast Final Result Addendum (preliminary) (03:20) Zulma Mendez: okay will connect (03:22) Zulma Mendez: re pt Sofya Cabrera Dr. Signed by Richard Porter MD Final Acute perforated appendicitis. Signed by Richard Porter MD Procedures Medical Decision Making At 3:22 AM I was contacted by the radiologist concerning the CT scan results. He states that he appears to be in no acute perforated appendicitis. I did have a discussion with patient and his concerning his CT scan results and ordered IV Zosyn and contacted Dr. Shi-general surgeon on-call concerning this patient. She wants to look at the CT scan imaging before she makes a decision what to do next. I was contacted by Dr. Shi and she wanted the patient to be admitted to internal medicine service with plan for IV antibiotics with possible drain placement on Tuesday. She also suggested treatment with Tylenol and ibuprofen for pain. Had a discussion with the patient and patient's concerning plan of care and discussed the case with internal medicine prior to admitting the patient to the hospital. Diagnoses as of 10/11/24456 Other acute appendicitis Jimenez Hutchinson DO 10/11/24456 documented in this encounter [facility] Work Phone: 10-11-2024 Physician Emergency department Note Images from the original note were not included. Abdominal pain. This 68-year-old white male presents to the ED with complaint of 2-1/2-day history of abdominal pain symptoms. He indicates that the pain currently is looking in the right lower quadrant he states the pain initially started in the upper quadrants and seems to have migrated down. He states that he has had a decrease in his appetite since onset of symptoms. He states that nothing seems to make his symptoms better. He states that walking around and moving does make his symptoms worse. He denies any associated nausea or vomiting. He states that he has never had abdominal surgeries previously. He states that his last colonoscopy was years ago. Patient admits to history of hypertension. He also admits to daily use of alcohol. 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 Constitutional: General: He is awake. Appearance: Normal appearance. He is overweight. HENT: Head: Normocephalic and atraumatic. Right Ear: Hearing and external ear normal. Left Ear: Hearing and external ear normal. Nose: Nose normal. No congestion or rhinorrhea. Mouth/Throat: Mouth: Mucous membranes are moist. Pharynx: Oropharynx is clear. Uvula midline. No oropharyngeal exudate or posterior oropharyngeal erythema. Eyes: General: Lids are normal. Vision grossly intact. Right eye: No discharge. Left eye: No discharge. Extraocular Movements: Extraocular movements intact. Conjunctiva/sclera: Conjunctivae normal. Pupils: Pupils are equal, round, and reactive to light. Cardiovascular: Rate and Rhythm: Normal rate and regular rhythm. Pulses: Normal pulses. Heart sounds: Normal heart sounds. No murmur heard. No friction rub. No gallop. Pulmonary: Effort: Pulmonary effort is normal. No respiratory distress. Breath sounds: Normal breath sounds. No stridor. No wheezing, rhonchi or rales. Chest: Chest wall: No tenderness. Abdominal: General: Abdomen is flat. Bowel sounds are normal. There is no distension. Palpations: Abdomen is soft. There is no mass. Tenderness: There is abdominal tenderness in the right lower quadrant. There is no guarding or rebound. Positive signs include Rovsing's sign and McBurney's sign. Hernia: No hernia is present. Musculoskeletal: General: No swelling, tenderness, deformity or signs of injury. Normal range of motion. Cervical back: Full passive range of motion without pain, normal range of motion and neck supple. Right lower leg: Normal. No edema. Left lower leg: Normal. No edema. Skin: General: Skin is warm and dry. Capillary Refill: Capillary refill takes less than 2 seconds. Coloration: Skin is not jaundiced or pale. Findings: No bruising, erythema, lesion or rash. Neurological: General: No focal deficit present. Mental Status: He is alert and oriented to person, place, and time. GCS: GCS eye subscore is 4. GCS verbal subscore is 5. GCS motor subscore is 6. Cranial Nerves: Cranial nerves 2-12 are intact. No cranial nerve deficit. Sensory: Sensation is intact. No sensory deficit. Motor: Motor function is intact. No weakness. Coordination: Coordination is intact. Coordination normal. Deep Tendon Reflexes: Reflexes normal. Psychiatric: Attention and Perception: Attention and perception normal. Mood and Affect: Mood and affect normal. Speech: Speech normal. Behavior: Behavior normal. Behavior is cooperative. Thought Content: Thought content normal. Cognition and Memory: Cognition and memory normal. Judgment: Judgment normal. Labs Reviewed COMPREHENSIVE METABOLIC PANEL - Abnormal Result Value Glucose 122 (*) Sodium 133 (*) Potassium 3.6 Chloride 97 (*) Bicarbonate 27 Anion Gap 13 Urea Nitrogen 11 Creatinine 1.01 eGFR 81 Calcium 9.4 Albumin 4.3 Alkaline Phosphatase 68 Total Protein 7.6 AST 13 Bilirubin, Total 1.1 ALT 16 CBC WITH AUTO DIFFERENTIAL - Abnormal WBC 16.1 (*) nRBC 0.0 RBC 4.15 (*) Hemoglobin 13.6 Hematocrit 39.6 (*) MCV 95 MCH 32.8 MCHC 34.3 RDW 11.8 Platelets 242 Neutrophils % 81.2 Immature Granulocytes %, Automated 0.3 Lymphocytes % 8.1 Monocytes % 9.9 Eosinophils % 0.2 Basophils % 0.3 Neutrophils Absolute 13.08 (*) Immature Granulocytes Absolute, Automated 0.05 Lymphocytes Absolute 1.30 Monocytes Absolute 1.60 (*) Eosinophils Absolute 0.03 Basophils Absolute 0.05 URINALYSIS WITH REFLEX CULTURE AND MICROSCOPIC - Abnormal Color, Urine Light-Yellow Appearance, Urine Clear Specific [place], Urine 1.026 pH, Urine 6.5 Protein, Urine 10 (TRACE) Glucose, Urine Normal Blood, Urine 0.06 (1+) (*) Ketones, Urine NEGATIVE Bilirubin, Urine NEGATIVE Urobilinogen, Urine Normal Nitrite, Urine NEGATIVE Leukocyte Esterase, Urine NEGATIVE LACTATE - Normal Lactate 1.3 Narrative: Venipuncture immediately after or during the administration of Metamizole may lead to falsely low results. Testing should be performed immediately prior to Metamizole dosing. LIPASE - Normal Lipase 14 Narrative: Venipuncture immediately after or during the administration of Metamizole may lead to falsely low results. Testing should be performed immediately prior to Metamizole dosing. URINALYSIS WITH REFLEX CULTURE AND MICROSCOPIC Narrative: The following orders were created for panel order Urinalysis with Reflex Culture and Microscopic. Procedure Abnormality Status --------- ------ Urinalysis with Reflex C...[[id number]] Abnormal Final result Extra Urine Gutiérrez Tube[[id number]] Please view results for these tests on the individual orders. EXTRA URINE GUTIÉRREZ TUBE URINALYSIS MICROSCOPIC WITH REFLEX CULTURE WBC, Urine 1-5 RBC, Urine 3-5 Mucus, Urine FEW CT abdomen pelvis w IV contrast Final Result Addendum (preliminary) (03:20) Zulma Mendez: okay will connect (03:22) Zulma Mendez: re pt Sofya Cabrera Dr. Signed by Richard Porter MD Final Acute perforated appendicitis. Signed by Richard Porter MD Procedures Medical Decision Making At 3:22 AM I was contacted by the radiologist concerning the CT scan results. He states that he appears to be in no acute perforated appendicitis. I did have a discussion with patient and his concerning his CT scan results and ordered IV Zosyn and contacted Dr. Shi-general surgeon on-call concerning this patient. She wants to look at the CT scan imaging before she makes a decision what to do next. I was contacted by Dr. Shi and she wanted the patient to be admitted to internal medicine service with plan for IV antibiotics with possible drain placement on Tuesday. She also suggested treatment with Tylenol and ibuprofen for pain. Had a discussion with the patient and patient's concerning plan of care and discussed the case with internal medicine prior to admitting the patient to the hospital. Diagnoses as of 10/11/24456 Other acute appendicitis Jimenez Hutchinson DO 10/11/24456 [facility] Work Phone: Evaluation note Diagnosis Other acute appendicitis- Primary Other acute appendicitis documented in this encounter [facility] Work Phone: Evaluation note* Diagnosis Other acute appendicitis- Primary Other acute appendicitis documented in this encounter [facility] Work Phone: Evaluation note* Diagnosis Perforated appendicitis- Primary documented in this encounter [facility] note* Diagnosis Perforated appendicitis- Primary Perforated appendicitis documented in this encounter [facility] note* Diagnosis Perforated appendicitis- Primary Preop examination- Primary Unspecified pre-operative examination Perforated appendicitis Hypertension, unspecified type documented in this encounter [facility] note* Diagnosis Preop examination- Primary Unspecified pre-operative examination Perforated appendicitis Hypertension, unspecified type S/P laparoscopic appendectomy- Primary Other postprocedural status documented in this encounter [facility] noteNo assessment information availableWLutheran Hospital Work Phone: Hospital Discharge instructions* Attachments The following attachments cannot be sent through Care Everywhere. * Appendicitis ([place]) documented in this encounterOhioHealthReason for referral (narrative)No reason for referral information availableWLutheran Hospital Work Phone: Reason for visit Narrative* Auth/Cert (Routine) Specialty Diagnoses / Procedures Referred By Contac t Referred To Contact Diagnoses Perforated appendix Perforated appenix Referral ID Status Reason Start Date Expiration Date Visits Re quested Visits Authorized [id number] 1 1 [facility] for visit Narrative* Auth/Cert (Routine) Specialty Diagnoses / Procedures Referred By Contac t Referred To Contact Diagnoses Perforated appendicitis Perforated appendicitis [K35.32] Procedures [place] LAPAROSCOPIC APPENDECTOMY Facundo Woods MD [facility] [place] [address] Phone: tel: fax: Referral ID Status Reason Start Date Expiration Date Visits Re quested Visits Authorized [id number] 11/05/2024 1 1 [facility] Advance Directives No Advanced Directives Records Found Date Activated Date Inactivated Comments 10/11/2024 7:11 AM Question Answer Comments Plan of Care: Code Status Discussion Completed Decision Maker: Patient Date Activated Date Inactivated Comments 10/17/2024 9:37 PM 10/19/2024 5:08 PM Date Activated Date Inactivated Comments 10/17/2024 9:37 PM 10/19/2024 5:08 PM Date Activated Date Inactivated Comments 11/23/2024 9:32 AM 11/24/2024 6:26 PM Date Activated Date Inactivated Comments 10/17/2024 9:37 PM 10/19/2024 5:08 PM Date Activated Date Inactivated Comments 11/23/2024 9:32 AM 11/24/2024 6:26 PM Date Activated Date Inactivated Comments 10/17/2024 9:37 PM 10/19/2024 5:08 PM Summary Purpose Family History No Family History Records FoundNo Family History Records FoundNo Family History Records FoundNo Family History Records Found Chief Complaint and Reason for Visit Chief Complaint Admit Date FASTING March 22, 2025 8:56a m Additional Source Comments Reason for Visit (unrecogniz ed section and content) Reason Comments Abdominal Pain Pt reports RLQ and L LQ pain x 2 days with nausea, denies urinary symptoms. Has not had a bowel movement approx 3 days ago Specialty Diagnoses / Procedures Referred By Tammi t Referred To Contact Diagnoses Other acute appendicitis Procedures ip Enrrique Arroyo MD [address] [place] [address] Phone: tel: fax: [facility] [address] [place] [address] Phone: tel: Referral ID Status Reason Start Date Expiration Date Visits Re quested Visits Authorized [id number] 1 1 Reason Comments Consult Appendectomy consult Reason Comments Follow-up Lap appendectomy Scheduled Active and Recently Administ ered Medications (unrecognized section and content) Medication Order 10/10/2024 10/11/2024 10/12/2024 acetaminophen (Tylenol) oral liquid 650 mg(Linked Group 1) 650 mg, oral, Every 6 hours, First dose (after last modification) on Hien 10/11/24 at 0900, Give oral liquid per feeding tube if present. 0905 (Given - Provider: Stephanie Brar RN)144 (Given - Provider: Stephanie Brar RN)2114 (Given - Provider: Yvonne Chatterjee RN) 0302 (Given - Provider: Yvonne Chatterjee RN)09 (Given - Provider: Stephanie Brar RN)1500 (Due)2100 (Due) acetaminophen (Tylenol) suppository 650 mg(Linked Group 1) 650 mg, rectal, Every 6 hours, First dose (after last modification) on Hien 10/11/24 at 0900, Give rectally if unable to administer by mouth or feeding tube., If ordered PRN for pain, nurse is permitted to administer this medication for higher pain scores based on patient preference? Yes 09 (See Alternative - Provider: Stephanie Brar RN)1446 (See Alternative - Provider: Stephanie Brar RN)2114 (See Alternative - Provider: Yvonne Chatterjee RN) 030 (See Alternative - Provider: Yvonne Chatterjee RN)0905 (See Alternative - Provider: Stephanie Brar RN)1500 (Due)2100 (Due) acetaminophen (Tylenol) tablet 650 mg(Linked Group 1) 650 mg, oral, Every 6 hours, First dose (after last modification) on Hien 10/11/24 at 0900, If ordered PRN for pain, nurse is permitted to administer this medication for higher pain scores based on patient preference? Yes 09 (See Alternative - Provider: Stephanie Brar RN)1446 (See Alternative - Provider: Stephanie Brar RN)2114 (See Alternative - Provider: Yvonne Chatterjee RN) 030 (See Alternative - Provider: Yvonne Chatterjee RN)09 (See Alternative - Provider: Stephanie Brar RN)1500 (Due)2100 (Due) famotidine PF (Pepcid) injection 20 mg 20 mg, intravenous, Administer over 2 Minutes, Every 12 hours scheduled, First dose on Hien 10/11/24 at 0900 0804 (Given - Provider: Stephanie Brar RN)2114 (Given - Provider: Yvonne Chatterjee RN) 09 (Given - Provider: Stephanie Brar RN)2100 (Due) HYDROmorphone (Dilaudid) injection 0.5 mg (COMPLETED) 0.5 mg, intravenous, Once, On Hien 10/11/24 at 0600, For 1 dose 0554 (Given - Provider: Fany Gillespie RN) iohexol (OMNIPaque) 350 mg iodine/mL solution 67 mL (COMPLETED) 67 mL, intravenous, Once in imaging, Starting on Hien 10/11/24 at 0219, For 1 dose 0239 (Given - Provider: Jaqui Cervantes) ketorolac (Toradol) injection 15 mg (CANCELED) 15 mg, intravenous, Every 6 hours scheduled, First dose on Hien 10/11/24 at 0730, For 5 days 0755 (Given - Provider: Stephanie Brar RN)1211 (Given - Provider: Stephanie Brar RN)1803 (Given - Provider: Stephanie Brar RN) 0017 (Given - Provider: Yvonne Chatterjee RN)0604 (Given - Provider: Yvonne Chatterjee RN) lisinopril tablet 40 mg (CANCELED) 40 mg, oral, Daily, First dose on Tue10/11/24 at 0900 0804 (Given - Provider: Stephanie Brar RN) 0905 (Given - Provider: Stephanie Brar RN) morphine injection 4 mg (COMPLETED) 4 mg, intravenous, Once, On Tue10/11/24 at 0130, For 1 dose 0141 (Given - Provider: Saul Ghotra RN) ondansetron (Zofran) injection 4 mg (COMPLETED) 4 mg, intravenous, Once, On Hien 10/11/24 at 0130, For 1 dose, When administering via IV Push, administer over 3-5 minutes. 0141 (Given - Provider: Saul Ghotra RN) piperacillin-tazobactam (Zosyn) 2.25 g in dextrose (iso) IV 50 mL 2.25 g, intravenous, Administer over 0.5 Hours, Every 6 hours, First dose on Tue10/12/24 at 1500, premix bag, Dosing of this medication varies based on severity of illness. Does this patient have sepsis or concern for sepsis (probable or documented infection plus systemic manifestations of infection)? Yes, Suspected Indication (Select all that apply): Abdominal Infection, Type of Therapy: Empiric, Type of infection: Community-Acquired, Indications: Abdominal Infection 1500 (Due)2100 (Due) piperacillin-tazobactam (Zosyn) 3.375 g in dextrose (iso) IV 50 mL (COMPLETED) 3.375 g, intravenous, Administer over 0.5 Hours, Once, On Tue10/11/24 at 0325, For 1 dose, premix bag, Dosing of this medication varies based on severity of illness. Does this patient have sepsis or concern for sepsis (probable or documented infection plus systemic manifestations of infection)? No, Suspected Indication (Select all that apply): Abdominal Infection, Type of Therapy: Empiric, Type of infection: Community-Acquired, Indications: Abdominal Infection 032 (New Bag - Provider: Saul Ghotra RN)0414 (Stopped - Provider: Saul F Blust, RN) piperacillin-tazobactam (Zosyn) 3.375 g in dextrose (iso) IV 50 mL (CANCELED) 3.375 g, intravenous, Administer over 0.5 Hours, Every 6 hours, First dose on Hien 10/11/24 at 0900, premix bag, Dosing of this medication varies based on severity of illness. Does this patient have sepsis or concern for sepsis (probable or documented infection plus systemic manifestations of infection)? Yes, Suspected Indication (Select all that apply): Abdominal Infection, Type of Therapy: Definitive, No Cultures, Type of infection: Community-Acquired, Indications: Abdominal Infection 0905 (New Bag - Provider: Stephanie Brar RN)0935 (Stopped - Provider: Stephanie Brar RN)1446 (New Bag - Provider: Stephanie Brar RN)1516 (Stopped - Provider: Stephanie Brar RN)2115 (New Bag - Provider: Yvonne Chatterjee RN)2149 (Stopped - Provider: Yvonne Chatterjee RN) 0302 (New Bag - Provider: Yvonne Chatterjee RN)0336 (Stopped - Provider: Yvonne Chatterjee RN)0905 (New Bag - Provider: Stephanie Brar RN)1008 (Stopped - Provider: Stephanie Brar RN) sodium chloride 0.9 % bolus 500 mL (COMPLETED) 500 mL, intravenous, at 999 mL/hr, Administer over 0.5 Hours, Once, On Tue10/12/24 at 0815, For 1 dose 0806 (New Bag - Provider: Stephanie Brar RN)0843 (Stopped - Provider: Stephanie Brar RN) Continuous Medication Order 10/10/2024 10/11/2024 10/12/2024 lactated Ringer's infusion 125 mL/hr, intravenous, Continuous, Starting on Tue10/12/24 at 0745, For 1 day 0741 (New Bag - Provider: Stephanie Brar RN)1135 (Rate/Dose Verify - Provider: Stephanie Brar RN) sodium chloride 0.9% infusion 75 mL/hr, intravenous, Continuous, Starting on Hien 10/11/24 at 0730, For 1 day 0804 (New Bag - Provider: Stephanie Brar RN)0943 (Rate/Dose Verify - Provider: Stephanie Brar RN)1152 (Rate/Dose Verify - Provider: Stephanie Brar RN)1357 (Rate/Dose Verify - Provider: Stephanie Brar RN)1457 (Rate/Dose Verify - Provider: Stephanie Brar RN)1720 (Rate/Dose Verify - Provider: Stephanie Brar RN)2116 (New Bag - Provider: Yvonne Chatterjee RN) PRN Medication Order 10/10/2024 10/11/2024 10/12/2024 magnesium hydroxide (Milk of Magnesia) 400 mg/5 mL suspension 30 mL 30 mL, oral, Daily PRN, constipation, first line, Starting on Hien 10/11/24 at 0711, Contact provider if no bowel movement in past 48 hours. Follow administration with 8 ounces of water. morphine injection 2 mg 2 mg, intravenous, Every 3 hours PRN, pain severe (7-10), first line, Starting on Hien 10/11/24 at 0711 0754 (Given - Provider: Stephanie Brar RN) ondansetron (Zofran) injection 4 mg(Linked Group 2) 4 mg, intravenous, Every 8 hours PRN, nausea/vomiting, first line, Starting on Hien 10/11/24 at 0711, 1st Line. Give IV if patient is unable to take orally. If inadequate response within 60 minutes, proceed to next-line agent for same PRN reason or contact provider if no further options ordered. When administering via IV Push, administer over 3-5 minutes. ondansetron ODT (Zofran-ODT) disintegrating tablet 4 mg(Linked Group 2) 4 mg, oral, Every 8 hours PRN, nausea/vomiting, first line, Starting on Hien 10/11/24 at 0711, 1st Line. Patient should allow tablet to dissolve on tongue. Do not remove from blister pack until just before administering. If inadequate response within 60 minutes, proceed to next-line agent for same PRN reason or contact provider if no further options ordered. oxyCODONE (Roxicodone) immediate release tablet 5 mg 5 mg, oral, Every 6 hours PRN, pain moderate (4-6), first line, Starting on Hien 10/11/24 at 0843, If ordered PRN for pain, nurse is permitted to administer this medication for higher pain scores based on patient preference? Yes No Frequency Medication Order 10/10/2024 10/11/2024 10/12/2024 sodium chloride (PF) 0.9% solution - Omnicell Override Pull (COMPLETED) Starting on Hien 10/11/24 at 2109, For 1 dose, Created by cabinet override 2115 (Given - Provider: Ever Chatterjee RN - Comment: to dilute pepcid) Linked Groups Order Group 1: acetaminophen (Tylenol) tablet 650 mgJump to med 650 mg, oral, Every 6 hours, First dose (after last modification) on Hien 10/11/24 at 0900, If ordered PRN for pain, nurse is permitted to administer this medication for higher pain scores based on patient preference? Yes Or acetaminophen (Tylenol) oral liquid 650 mgJump to med 650 mg, oral, Every 6 hours, First dose (after last modification) on Hien 10/11/24 at 0900, Give oral liquid per feeding tube if present. Or acetaminophen (Tylenol) suppository 650 mgJump to med 650 mg, rectal, Every 6 hours, First dose (after last modification) on Hien 10/11/24 at 0900, Give rectally if unable to administer by mouth or feeding tube., If ordered PRN for pain, nurse is permitted to administer this medication for higher pain scores based on patient preference? Yes Group 2: ondansetron ODT (Zofran-ODT) disintegrating tablet 4 mgJump to med 4 mg, oral, Every 8 hours PRN, nausea/vomiting, first line, Starting on Hien 10/11/24 at 0711, 1st Line. Patient should allow tablet to dissolve on tongue. Do not remove from blister pack until just before administering. If inadequate response within 60 minutes, proceed to next-line agent for same PRN reason or contact provider if no further options ordered. Or ondansetron (Zofran) injection 4 mgJump to med 4 mg, intravenous, Every 8 hours PRN, nausea/vomiting, first line, Starting on Hien 10/11/24 at 0711, 1st Line. Give IV if patient is unable to take orally. If inadequate response within 60 minutes, proceed to next-line agent for same PRN reason or contact provider if no further options ordered. When administering via IV Push, administer over 3-5 minutes. Scheduled Medication Order 10/15/2024 10/16/2024 10/17/2024 acetaminophen (Tylenol) oral liquid 650 mg(Linked Group 1) 650 mg, oral, Every 6 hours, First dose (after last modification) on Hien 10/11/24 at 0900, Give oral liquid per feeding tube if present. 0319 (See Alternative - Provider: Honey Lewis RN)0904 (See Alternative - Provider: Nydia Batista RN)151 (See Alternative - Provider: Nydia Batista, SHERMAN)2012 (See Alternative - Provider: Olesya Shook, SHERMAN) 020 (See Alternative - Provider: Olesya Shook RN)0856 (See Alternative - Provider: Estela Montes, SHERMAN)152 (See Alternative - Provider: Estela Montes, SHERMAN)2054 (See Alternative - Provider: Yvonne Chatterjee RN) 0313 (See Alternative - Provider: Yvonne Chatterjee RN)0842 (See Alternative - Provider: Stephanie Brar, SHERMAN)1546 (See Alternative - Provider: Stephanie Brar, SHERMAN)2100 (Due) acetaminophen (Tylenol) suppository 650 mg(Linked Group 1) 650 mg, rectal, Every 6 hours, First dose (after last modification) on Hien 10/11/24 at 0900, Give rectally if unable to administer by mouth or feeding tube., If ordered PRN for pain, nurse is permitted to administer this medication for higher pain scores based on patient preference? Yes 031 (See Alternative - Provider: Honey Lewis RN)0904 (See Alternative - Provider: Nydia Batista RN)151 (See Alternative - Provider: Nydia Batista, SHERMAN)2012 (See Alternative - Provider: Olesya Shook, SHERMAN) 0209 (Not Given - Provider: Olesya Shook RN - Reason: Patient/family refused)0856 (See Alternative - Provider: Estela Montes, SHERMAN)1527 (See Alternative - Provider: Estela Montes, SHERMAN)2054 (See Alternative - Provider: Yvonne Chatterjee RN) 0313 (See Alternative - Provider: Yvonne Chatterjee RN)0842 (See Alternative - Provider: Stephanie Brar RN)1546 (See Alternative - Provider: Stephanie Brar RN)2100 (Due) acetaminophen (Tylenol) tablet 650 mg(Linked Group 1) 650 mg, oral, Every 6 hours, First dose (after last modification) on Hien 10/11/24 at 0900, If ordered PRN for pain, nurse is permitted to administer this medication for higher pain scores based on patient preference? Yes 031 (Not Given - Provider: Honey Lewis RN - Reason: Patient/family refused)0904 (Not Given - Provider: Nydia Batista RN - Reason: Patient/family refused)151 (Not Given - Provider: Nydia Batista RN - Reason: Patient/family refused)2012 (Not Given - Provider: Olesya Shook RN - Reason: Patient/family refused) 020 (See Alternative - Provider: Olesya Shook RN)0856 (Given - Provider: Estela Montes RN)1527 (Not Given - Provider: Estela Montes RN - Reason: Patient/family refused)205 (Given - Provider: Yvonne Chatterjee RN) 031 (Not Given - Provider: Yvonne Chatterjee RN - Reason: Patient/family refused)0842 (Given - Provider: Stephanie Brar RN)1546 (Given - Provider: Stephanie Brar RN)2100 (Due) ciprofloxacin (Cipro) 400 mg in dextrose 5% IV 200 mL 400 mg, intravenous, at 200 mL/hr, Administer over 60 Minutes, Every 12 hours, First dose on Tue10/12/24 at 1530, premix bag, Dosing of this medication varies based on severity of illness. Does this patient have sepsis or concern for sepsis (probable or documented infection plus systemic manifestations of infection)? Yes, Suspected Indication (Select all that apply): Abdominal Infection, Type of Therapy: Definitive, No Cultures, Type of infection: Community-Acquired, Indications: Abdominal Infection 0249 (New Bag - Provider: Honey Lewis RN)0342 (Stopped - Provider: Honey Lewis RN)1513 (New Bag - Provider: Nydia Batista RN)1714 (Stopped - Provider: Nydia Batista RN) 020 (New Bag - Provider: Olesya Shook RN)0315 (Stopped - Provider: Olesya Shook, SHERMAN)1505 (New Bag - Provider: Estela Montes, RN)1638 (Stopped - Provider: Estela Montes, RN) 0313 (New Bag - Provider: Yvonne Chatterjee, RN)0414 (Stopped - Provider: Yvonne Chatterjee, RN)1546 (New Bag - Provider: Stephanie Brar, RN)1654 (Stopped - Provider: Stephanie Brar, RN) famotidine PF (Pepcid) injection 20 mg 20 mg, intravenous, Administer over 2 Minutes, Every 12 hours scheduled, First dose on Hien 10/11/24 at 0900 0903 (Given - Provider: Nydia Batista, RN)2011 (Given - Provider: Olesya Shook RN) 0859 (Given - Provider: Estela Montes RN)2056 (Given - Provider: vYonne Chatterjee, SHERMAN) 0853 (Given - Provider: Stephanie Brar, RN)2100 (Due) furosemide (Lasix) injection 20 mg (COMPLETED) 20 mg, intravenous, Once, On Tue10/15/24 at 0815, For 1 dose, For doses less than or = 160 mg, give IV push at maximum rate of 40 mg/min For doses greater than 160 mg, dilute in 50 mL and administer at 4 mg/min 902 (Given - Provider: Nydia Batista RN) furosemide (Lasix) injection 20 mg (COMPLETED) 20 mg, intravenous, Once, On Tue10/15/24 at 2000, For 1 dose, For doses less than or = 160 mg, give IV push at maximum rate of 40 mg/min For doses greater than 160 mg, dilute in 50 mL and administer at 4 mg/min 2011 (Given - Provider: Olesya Shook RN - Comment: bp 129/85) furosemide (Lasix) tablet 20 mg 20 mg, oral, Daily, First dose on Tue10/16/24 at 1145, For 5 days 1142 (Given - Provider: Estela Montes RN) 0842 (Given - Provider: Stephanie Brar, SHERMAN) iohexol (OMNIPaque) 12 mg iodine/mL oral contrast 500 mL (COMPLETED) 500 mL, oral, Once in imaging, Starting on Tue10/17/24 at 1235, For 1 dose, Administer over 20-60 minutes as directed by imaging protocol and/or imaging provider. CONTRAST - for procedural imaging use only. 1246 (Given - Provider: Stephanie Brar RN) metroNIDAZOLE (Flagyl) 500 mg in sodium chloride (iso) IV 100 mL 500 mg, intravenous, Administer over 60 Minutes, Every 8 hours, First dose on Tue10/12/24 at 1530, Do NOT give with alcohol or drug products with significant alcohol content., Suspected Indication (Select all that apply): Abdominal Infection, Type of Therapy: Definitive, No Cultures, Type of infection: Community-Acquired, Indications: Abdominal Infection 0111 (New Bag - Provider: Honey Lewis RN)0319 (Stopped - Provider: Honey Lewis RN)0903 (New Bag - Provider: Nydia Batista RN)1144 (Stopped - Provider: Nydia Batista RN)1714 (New Bag - Provider: Nydia Batista RN)1921 (Stopped - Provider: Olesya Shook RN) 0100 (New Bag - Provider: Olesya Shook RN)0209 (Stopped - Provider: Olesya Shook RN)0858 (New Bag - Provider: Estela Montes RN)1015 (Stopped - Provider: Estela Montes RN)1700 (New Bag - Provider: Estela Montes RN)1809 (Stopped - Provider: Estela Montes RN) 0114 (New Bag - Provider: Yvonne Chatterjee RN)0214 (Stopped - Provider: Yvonne Chatterjee RN)0842 (New Bag - Provider: Stephanie Brar RN)1016 (Stopped - Provider: Stephanie Brar RN)1659 (New Bag - Provider: Stephanie Brar, SHERMAN)1800 (Stopped - Provider: Stephanie Brar, RN) potassium chloride (Klor-Con) packet 40 mEq 40 mEq, oral, 2 times daily, First dose on Tue10/14/24 at 0900, Dissolve each packet in 4 ounces of water = 5 mEq per 1 oz fluid. 0903 (Given - Provider: Nydia Batista RN)2012 (Given - Provider: Olesya Shook RN) 0856 (Given - Provider: Estela Montes RN)205 (Given - Provider: Yvonne Chatterjee RN) 0842 (Given - Provider: Stephanie Brar RN)2100 (Due) PRN Medication Order 10/15/2024 10/16/2024 10/17/2024 magnesium hydroxide (Milk of Magnesia) 400 mg/5 mL suspension 30 mL 30 mL, oral, Daily PRN, constipation, first line, Starting on Hien 10/11/24 at 0711, Contact provider if no bowel movement in past 48 hours. Follow administration with 8 ounces of water. ondansetron (Zofran) injection 4 mg(Linked Group 2) 4 mg, intravenous, Every 8 hours PRN, nausea/vomiting, first line, Starting on Hien 10/11/24 at 0711, 1st Line. Give IV if patient is unable to take orally. If inadequate response within 60 minutes, proceed to next-line agent for same PRN reason or contact provider if no further options ordered. When administering via IV Push, administer over 3-5 minutes. ondansetron ODT (Zofran-ODT) disintegrating tablet 4 mg(Linked Group 2) 4 mg, oral, Every 8 hours PRN, nausea/vomiting, first line, Starting on Hien 10/11/24 at 0711, 1st Line. Patient should allow tablet to dissolve on tongue. Do not remove from blister pack until just before administering. If inadequate response within 60 minutes, proceed to next-line agent for same PRN reason or contact provider if no further options ordered. oxyCODONE (Roxicodone) immediate release tablet 5 mg 5 mg, oral, Every 6 hours PRN, pain moderate (4-6), first line, Starting on Hien 10/11/24 at 0843, If ordered PRN for pain, nurse is permitted to administer this medication for higher pain scores based on patient preference? Yes No Frequency Medication Order 10/15/2024 10/16/2024 10/17/2024 sodium chloride (PF) 0.9% solution - [employer] Override Pull (COMPLETED) Starting on Tue10/16/24 at 0855, For 1 dose, Created by cabinet override 0857 (Given - Provider: Sherron Montes RN) sodium chloride (PF) 0.9% solution - [employer] Override Pull (COMPLETED) Starting on Tue10/16/24 at 2050, For 1 dose, Created by cabinet override 2055 (Given - Provider: Ever Chatterjee RN) Linked Groups Order Group 1: acetaminophen (Tylenol) tablet 650 mgJump to med 650 mg, oral, Every 6 hours, First dose (after last modification) on Hien 10/11/24 at 0900, If ordered PRN for pain, nurse is permitted to administer this medication for higher pain scores based on patient preference? Yes Or acetaminophen (Tylenol) oral liquid 650 mgJump to med 650 mg, oral, Every 6 hours, First dose (after last modification) on Hien 10/11/24 at 0900, Give oral liquid per feeding tube if present. Or acetaminophen (Tylenol) suppository 650 mgJump to med 650 mg, rectal, Every 6 hours, First dose (after last modification) on Hien 10/11/24 at 0900, Give rectally if unable to administer by mouth or feeding tube., If ordered PRN for pain, nurse is permitted to administer this medication for higher pain scores based on patient preference? Yes Group 2: ondansetron ODT (Zofran-ODT) disintegrating tablet 4 mgJump to med 4 mg, oral, Every 8 hours PRN, nausea/vomiting, first line, Starting on Hien 10/11/24 at 0711, 1st Line. Patient should allow tablet to dissolve on tongue. Do not remove from blister pack until just before administering. If inadequate response within 60 minutes, proceed to next-line agent for same PRN reason or contact provider if no further options ordered. Or ondansetron (Zofran) injection 4 mgJump to med 4 mg, intravenous, Every 8 hours PRN, nausea/vomiting, first line, Starting on Hien 10/11/24 at 0711, 1st Line. Give IV if patient is unable to take orally. If inadequate response within 60 minutes, proceed to next-line agent for same PRN reason or contact provider if no further options ordered. When administering via IV Push, administer over 3-5 minutes. Scheduled Medication Order 10/17/2024 10/18/2024 10/19/2024 lisinopriL (PRINIVIL,ZESTRIL) tablet 40 mg 40 mg, Oral, Daily with lunch, First dose on Hien 10/18/24 at 1200 1229 (Given - Provider: Evette Granados, SHERMAN) 1147 (Given - Provider: Wendy Washington, SHERMAN) magnesium sulfate 2 g in sterile water (SW) 50 mL IVPB (COMPLETED) 2 g, Intravenous, at 25 mL/hr, Once, On Hien 10/18/24 at 0845, For 1 dose, Indication: Hypomagnesemia 0909 (New Bag - Provider: Evette Granados, SHERMAN)1000 (Stopped - Provider: Evette Granados RN) piperacillin-tazobactam (ZOSYN) IVPB 3.375 g (premix) 3.375 g, Intravenous, at 12.5 mL/hr, Every 8 hours, First dose on Tue10/17/24 at 2300, VESICANT, Indication: Intra-abdominal Infection 2342 (New Bag - Provider: Vivien Yuan RN) 0907 (New Bag - Provider: Evette Granados RN - Comment: Missing dose)1022 (Stopped - Provider: Elisha Lowe RN)1557 (New Bag - Provider: Evette Granados RN)2223 (New Bag - Provider: Evette Granados RN) 0028 (Rate/Dose Verify - Provider: Elisha Lowe RN)0230 (Stopped - Provider: Elisha Lowe RN)0330 (Canceled Entry - Provider: Elisha Lowe RN - Comment: pump not communicating)0644 (New Bag - Provider: Elisha Lowe, SHERMAN)1147 (Stopped - Provider: Wendy Washington, SHERMAN)1500 (Not Given - Provider: Wendy Washington RN - Reason: Loss of IV access) sodium chloride (PF) (NS) flush 5 mL(Linked Group 1) 5 mL, Intravenous, Every 8 hours scheduled, First dose on Tue10/17/24 at 2230, Saline lock 2230 (Given - Provider: Vivien Yuan, SHERMAN) 0600 (Given - Provider: Vivien Yuan, SHERMAN)1400 (Given - Provider: Evette Granados, SHERMAN)2200 (Given - Provider: Evette Granados, SHERMAN) 0621 (Given - Provider: Elisha Lowe RN)1400 (Not Given - Provider: Wendy WashingtonSHERMAN - Reason: Loss of IV access) PRN Medication Order 10/17/2024 10/18/2024 10/19/2024 acetaminophen (TYLENOL) tablet 975 mg 975 mg, Oral, Every 8 hours PRN, mild pain, fever 100.4 F or greater, headaches, Starting on Tue10/17/24 at 2137 2202 (Given - Provider: Vivien Yuan RN) 0612 (Given - Provider: Vivien Yuan RN)1551 (Given - Provider: Evette Granados RN) 0139 (Given - Provider: Elisha Lowe RN) bisacodyL (DULCOLAX) suppository 10 mg 10 mg, Rectal, Daily PRN, constipation, Starting on Tue10/17/24 at 2134, Try oral medications first for constipation. Try rectal medication if oral meds are ineffective, not tolerated, or not ordered. docusate sodium (COLACE) capsule 100 mg 100 mg, Oral, Daily PRN, constipation, Starting on Tue10/17/24 at 2134, [] Hold for loose stools. DO NOT CRUSH OR CHEW. fentaNYL (SUBLIMAZE) inj syringe 50 mcg 50 mcg, Intravenous, Every 5 min PRN, sedation, Starting on Hien 10/18/24 at 0958, For 5 doses, Intra-Procedure, May repeat x 4 doses (for 5 doses TOTAL 250 mcg). Give IV push over 2 minutes; may repeat x4 if RASS score greater than or equal to -2. Do not give if RASS is less than or equal to -3. Consult physician for further orders. For use in Interventional Radiology during procedure ONLY. fentaNYL (SUBLIMAZE) injection (COMPLETED) Intravenous, Code/trauma/sedation medication, Starting on Hien 10/18/24 at 1031, Intra-Procedure 1031 (Given - Provider: Ingrid Nguyen RN)1040 (Given - Provider: Ingrid Nguyen RN) flumazeniL (ROMAZICON) injection 0.2 mg(Linked Group 2) 0.2 mg, Intravenous, As needed, repiratory rate 8 per minute or less unresponsive to nalOXone (NARCAN), Starting on Hien 10/18/24 at 0958, Intra-Procedure, If respiratory rate unresponsive to nalOXone (NARCAN), give flumazenil (ROMAZICON) IV Push over 15 seconds. May repeat 0.2mg at 60 second intervals to a maximum dose of 1 mg. For use in Interventional Radiology during procedure ONLY. iopamidoL (ISOVUE-370) 370 mg iodine /mL (76 %) injection 75 mL (COMPLETED) 75 mL, Intravenous, Once in imaging, contrast, Starting on Hien 10/18/24 at 0645, For 1 dose 0648 (Contrast Administered - Provider: Vero Parry, TECHNOLOGIST - Comment: [id number] 06/26) lidocaine 1% (PF) (XYLOCAINE-MPF) 10 mg/mL (1 %) injection (COMPLETED) Code/trauma/sedation medication, Starting on Hien 10/18/24 at 1041, Intra-Procedure 1041 (Given - Provider: Mary Holliday MD - Comment: Right abdomen) melatonin Tab 5 mg 5 mg, Oral, Nightly PRN, Sleep, Starting on Tue10/17/24 at 2134, If still awake in 1 hour proceed to trazodone (Desyrel) midazolam (VERSED) injection 1 mg 1 mg, Intravenous, Every 5 min PRN, sedation, Starting on Hien 10/18/24 at 0958, For 5 doses, Intra-Procedure, May repeat x 4 doses (for 5 doses TOTAL 5 mg) Give IV push over 2 minutes; may repeat x4 if RASS score greater than or equal to -2. Do not give if RASS is less than or equal to -3. Consult physician for further orders. For use in Interventional Radiology during procedure ONLY. midazolam (VERSED) injection (COMPLETED) Intravenous, Code/trauma/sedation medication, Starting on Hien 10/18/24 at 1031, Intra-Procedure 1031 (Given - Provider: Ingrid Nguyen, SHERMAN)1040 (Given - Provider: Ingrid Nguyen, SHERMAN) naloxone (NARCAN) injection 0.1 mg(Linked Group 2) 0.1 mg, Intravenous, As needed, respiratory depression, Respiratory rate less than or equal to 8 per minute, Starting on Hien 10/18/24 at 0958, Intra-Procedure, Mix nalOXone (NARCAN) 0.4 mg (1ml) with 9 mL of Normal Saline to total 10 mL. Administer 0.1 mg (2.5ml) IV Push every 2 minutes until respiratory rate is 10 or greater. If unresponsive to nalOXone (NARCAN), use flumazenil (ROMAZICON). For use in Interventional Radiology during procedure ONLY. naloxone (NARCAN) injection 0.4 mg(Linked Group 2) 0.4 mg, Intravenous, As needed, opioid reversal, patient is pulseless, breathless, and unresponsive, Starting on Hien 10/18/24 at 0958, Intra-Procedure, Call a code first, then administer naloxone dose undiluted IV Push over 30 seconds. If unresponsive to nalOXone (NARCAN), use flumazenil (ROMAZICON). For use in Interventional Radiology during procedure ONLY. nitroGLYCERIN (NITROSTAT) SL tablet 0.4 mg 0.4 mg, Sublingual, Every 5 min PRN, chest pain, Starting on Tue10/17/24 at 2134, For chest pain. May give up to 3 doses. Call physician for chest pain unrelieved by Nitroglycerin, or recurrent chest pain. DO NOT CRUSH OR CHEW. ondansetron (ZOFRAN) injection 4 mg(Linked Group 3) 4 mg, Intravenous, Every 6 hours PRN, nausea, vomiting, Starting on Tue10/17/24 at 2134, Use oral route first, if tolerated. ondansetron (ZOFRAN-ODT) disintegrating tablet 4 mg(Linked Group 3) 4 mg, Oral, Every 6 hours PRN, nausea, vomiting, Starting on Tue10/17/24 at 2134, Use oral route first, if tolerated. Formulation requires tablet remain in sealed package until immediately prior to dose being administered. senna (SENOKOT) tablet 8.6 mg 8.6 mg (1 tablet), Oral, 2 times daily PRN, constipation, Starting on Tue10/17/24 at 2134 sodium chloride (PF) (NS) 0.9 % contrast line flush 10 mL (COMPLETED)(Linked Group 4) 10 mL, Intravenous, Once in imaging, contrast, Per [employer] (Radiology) for line patency check prior to contrast administration, Starting on Hien 10/18/24 at 0645, For 1 dose 0649 (Given - Provider: Vero Parry, TECHNOLOGIST) sodium chloride (PF) (NS) 0.9 % contrast line flush 80 mL (COMPLETED)(Linked Group 4) 80 mL, Intravenous, Once in imaging, contrast, Per [employer] (Radiology), Starting on Hien 10/18/24 at 0645, For 1 dose, 30 mL BEFORE contrast administration 50 mL AFTER contrast administration 0648 (Given - Provider: Vero Parry, TECHNOLOGIST) sodium chloride (PF) (NS) flush 5 mL(Linked Group 1) 5 mL, Intravenous, As needed, line care, Starting on Tue10/17/24 at 2134 sodium chloride 0.9% (NS)(Linked Group 1) 0-150 mL/hr, Intravenous, As needed, To flush line after IV infusions when no maintenance IV ordered or a compatibility issue. Infuse 20ml at the same rate as the secondary infusion, Starting on Tue10/17/24 at 2134, Run as Primary IV. NOT intended for KVO. 2340 (New Bag - Provider: Vivien Yuan RN) 0906 (New Bag - Provider: Evette Granados RN)0906 (Stopped - Provider: Elisha Lowe RN)0909 (New Bag - Provider: Evette Granados RN)0909 (Stopped - Provider: Elisha Lowe RN)1557 (New Bag - Provider: Evette Granados, SHERMAN)2216 (Stopped - Provider: Elisha Lowe, SHERMAN)2222 (New Bag - Provider: Evette Granados, SHERMAN)2222 (Stopped - Provider: Elisha Lowe, SHERMAN) 0233 (Restarted - Provider: Elisha Lowe, SHERMAN)0321 (Stopped - Provider: Elisha Lowe, SHERMAN)0644 (New Bag - Provider: Elisha Lowe RN)1147 (Stopped - Provider: Wendy Washington RN) sodium chloride 0.9% (NS) (COMPLETED) Code/trauma/sedation continuous med, Starting on Hien 10/18/24 at 1030, Intra-Procedure 1030 (New Bag - Provider: Ingrid Nguyen RN - Comment: for CT procedure)1052 (Stopped - Provider: Ingrid Nguyen, SHERMAN) traZODone (DESYREL) tablet 50 mg 50 mg, Oral, Nightly PRN, sleep, Starting on Tue10/17/24 at 2134, To be administered 1 hour after melatonin if still awake. May repeat x 1 dose in 30 minutes if still awake. Linked Groups Order Group 1: Saline lock IV (CANCELED) Routine, Continuous, Starting on Tue10/17/24 at 2135, Until Specified And sodium chloride (PF) (NS) flush 5 mLJump to med 5 mL, Intravenous, As needed, line care, Starting on Tue10/17/24 at 2134 And sodium chloride (PF) (NS) flush 5 mLJump to med 5 mL, Intravenous, Every 8 hours scheduled, First dose on Tue10/17/24 at 2230, Saline lock And sodium chloride 0.9% (NS)Jump to med 0-150 mL/hr, Intravenous, As needed, To flush line after IV infusions when no maintenance IV ordered or a compatibility issue. Infuse 20ml at the same rate as the secondary infusion, Starting on Tue10/17/24 at 2134, Run as Primary IV. NOT intended for KVO. Group 2: naloxone (NARCAN) injection 0.1 mgJump to med 0.1 mg, Intravenous, As needed, respiratory depression, Respiratory rate less than or equal to 8 per minute, Starting on Hien 10/18/24 at 0958, Intra-Procedure, Mix nalOXone (NARCAN) 0.4 mg (1ml) with 9 mL of Normal Saline to total 10 mL. Administer 0.1 mg (2.5ml) IV Push every 2 minutes until respiratory rate is 10 or greater. If unresponsive to nalOXone (NARCAN), use flumazenil (ROMAZICON). For use in Interventional Radiology during procedure ONLY. And naloxone (NARCAN) injection 0.4 mgJump to med 0.4 mg, Intravenous, As needed, opioid reversal, patient is pulseless, breathless, and unresponsive, Starting on Hien 10/18/24 at 0958, Intra-Procedure, Call a code first, then administer naloxone dose undiluted IV Push over 30 seconds. If unresponsive to nalOXone (NARCAN), use flumazenil (ROMAZICON). For use in Interventional Radiology during procedure ONLY. And flumazeniL (ROMAZICON) injection 0.2 mgJump to med 0.2 mg, Intravenous, As needed, repiratory rate 8 per minute or less unresponsive to nalOXone (NARCAN), Starting on Hien 10/18/24 at 0958, Intra-Procedure, If respiratory rate unresponsive to nalOXone (NARCAN), give flumazenil (ROMAZICON) IV Push over 15 seconds. May repeat 0.2mg at 60 second intervals to a maximum dose of 1 mg. For use in Interventional Radiology during procedure ONLY. Group 3: ondansetron (ZOFRAN-ODT) disintegrating tablet 4 mgJump to med 4 mg, Oral, Every 6 hours PRN, nausea, vomiting, Starting on Tue10/17/24 at 2134, Use oral route first, if tolerated. Formulation requires tablet remain in sealed package until immediately prior to dose being administered. Or ondansetron (ZOFRAN) injection 4 mgJump to med 4 mg, Intravenous, Every 6 hours PRN, nausea, vomiting, Starting on Tue10/17/24 at 2134, Use oral route first, if tolerated. Group 4: sodium chloride (PF) (NS) 0.9 % contrast line flush 10 mL (COMPLETED)Jump to med 10 mL, Intravenous, Once in imaging, contrast, Per lawyer [employer] (Radiology) for line patency check prior to contrast administration, Starting on Hien 10/18/24 at 0645, For 1 dose And sodium chloride (PF) (NS) 0.9 % contrast line flush 80 mL (COMPLETED)Jump to med 80 mL, Intravenous, Once in imaging, contrast, Per lawyer [employer] (Radiology), Starting on Hien 10/18/24 at 0645, For 1 dose, 30 mL BEFORE contrast administration 50 mL AFTER contrast administration Scheduled Medication Order 11/22/2024 11/23/2024 11/24/2024 ceFAZolin (ANCEF) IVPB 2 g (premix) (COMPLETED) 2,000 mg, Intravenous, at 100 mL/hr, Once, On Tue11/23/24 at 0645, For 1 dose, Pre-Procedure, Administer within 60 minutes prior to incision., Indication (PRE PROCEDURE): GI (Biliary Tract, Appendectomy,Colorectal, Small Intestine) 0745 (Given - Provider: ADAM Richter)0748 (Stopped - Provider: ADAM Richter) ceFAZolin (ANCEF) IVPB 2 g (premix) (COMPLETED) 2,000 mg, Intravenous, at 100 mL/hr, Every 8 hours, First dose on Tue11/23/24 at 1545, For 2 doses, Starting 8 hours after pre-procedure dose x 2 doses., Indication (POST PROCEDURE): Gastro 1533 (New Bag - Provider: Quang Jorgensen RN)1603 (Stopped - Provider: Rebecca Alvarado RN) 0021 (New Bag - Provider: Rebecca Alvarado RN)0051 (Stopped - Provider: Rebecca Alvarado RN) hydroCHLOROthiazide tablet 12.5 mg 12.5 mg, Oral, Daily, First dose on Tue11/23/24 at 1215 1304 (Given - Provider: Quang Jorgensen RN) 0856 (Given - Provider: Vero Nelson RN) lisinopriL (PRINIVIL,ZESTRIL) tablet 40 mg 40 mg, Oral, Daily with lunch, First dose on Tue11/24/24 at 1200 1227 (Given - Provid er: Vero Neslon RN) metroNIDAZOLE (FLAGYL) IVPB 500 mg (COMPLETED) 500 mg, Intravenous, at 200 mL/hr, Once, On Tue11/23/24 at 0645, For 1 dose, Pre-Procedure, Administer within 60 minutes prior to incision. DO NOT REFRIGERATE, Indication (PRE PROCEDURE): GI (Biliary Tract, Appendectomy,Colorectal, Small Intestine) 0702 (New Bag - Provider: Janessa Riggs RN) metroNIDAZOLE (FLAGYL) IVPB 500 mg (COMPLETED) 500 mg, Intravenous, at 200 mL/hr, Every 8 hours, First dose on Tue11/23/24 at 1500, For 2 doses, [] Starting 8 hours after preop dosecompleted. DO NOT REFRIGERATE, Indication: Intra-abdominal Infection 1430 (New Bag - Provider: Quang Jorgensen RN)1500 (Stopped - Provider: Rebecca Alvarado RN)2332 (New Bag - Provider: Rebecca Alvarado RN) 0002 (Stopped - Provider: Rebecca Alvarado RN) Continuous Medication Order 11/22/2024 11/23/2024 11/24/2024 lactated Ringers infusion (CANCELED) 75 mL/hr, Intravenous, Continuous, Starting on Tue11/23/24 at 0645, Pre-Procedure 0633 (New Bag - Provider: Emma Riggs RN)0729 (Paused - Provider: ADAM Richter - Comment: Switch to gravity)0730 (Restarted - Provider: ADAM Richter)0930 (Stopped - Provider: ADAM Richter)0931 (New Bag - Provider: ADAM Richter)1100 (Continue to Inpatient Floor - Provider: Lauryn Robert RN)1116 (Stopped - Provider: Quang Jorgensen RN) PRN Medication Order 11/22/2024 11/23/2024 11/24/2024 acetaminophen (TYLENOL) tablet 650 mg 650 mg, Oral, Every 6 hours PRN, headaches, mild pain, Starting on Tue11/23/24 at 6 2127 (Given - Provider: Rebecca Alvarado RN) BUPivacaine (PF) (MARCAINE) 0.5 % (5 mg/mL) injection (CANCELED) As needed, Starting on Tue11/23/24 at 0910, Intra-Procedure 0910 (Given - Provider: Facundo Woods MD) naloxone (NARCAN) injection 0.1 mg(Linked Group 1) 0.1 mg, Intravenous, As needed, opioid reversal, For respiratory rate less than or equal to 8 per minute., Starting on Tue11/23/24 at 1115, Mix nalOXone (NARCAN) 0.4 mg (1ml) with 9 mL of Normal Saline to total 10 mL. Administer 0.1 mg (2.5ml) IV Push every 2 minutes until respiratory rate is 10 or greater. naloxone (NARCAN) injection 0.4 mg(Linked Group 1) 0.4 mg, Intravenous, As needed, opioid reversal, patient is pulseless, breathless, and unresponsive, Starting on Tue11/23/24 at 1115, Call a code first, then administer naloxone dose undiluted IV Push over 30 seconds. oxyCODONE (ROXICODONE) immediate release tablet 5 mg 5 mg, Oral, Every 6 hours PRN, moderate to severe pain, Starting on Tue11/23/24 at 2046 0856 (Given - Provid er: Vero Nelson RN) sodium chloride (NS) 0.9 % irrigation solution (CANCELED) As needed, Starting on Tue11/23/24 at 0911, Intra-Procedure 0911 (Given - Provider: Facundo Woods MD) No Frequency Medication Order 11/22/2024 11/23/2024 11/24/2024 sodium chloride 0.9 % (NS) infusion - ADS Override Pull (COMPLETED) Starting on Tue11/23/24 at 1527, For 1 dose, QUANG JORGENSEN: cabinet override 1530 (New Bag - Provider: Quang Jorgensen RN - Comment: used to prime line) 1300 (Stopped - Provider: Vero Nelson RN) Linked Groups Order Group 1: naloxone (NARCAN) injection 0.1 mgJump to med 0.1 mg, Intravenous, As needed, opioid reversal, For respiratory rate less than or equal to 8 per minute., Starting on Tue11/23/24 at 1115, Mix nalOXone (NARCAN) 0.4 mg (1ml) with 9 mL of Normal Saline to total 10 mL. Administer 0.1 mg (2.5ml) IV Push every 2 minutes until respiratory rate is 10 or greater. And Notify physician (CANCELED) STAT, Until discontinued, Starting on Tue11/23/24 at 1116, Until Specified, Respiratory rate less than: 8, For respiratory rate less than or equal to 8, notify physician and/or appropriate staff for additional orders. And naloxone (NARCAN) injection 0.4 mgJump to med 0.4 mg, Intravenous, As needed, opioid reversal, patient is pulseless, breathless, and unresponsive, Starting on Tue11/23/24 at 1115, Call a code first, then administer naloxone dose undiluted IV Push over 30 seconds. Care Teams (unrecognized sec tion and content) Medical Insurance Claims Specialist Relationship Specialty Start Date End Date Bashir Cleary APRN-CNP [place] [id number] PCP - General Family Medicine 10/11/24 Medical Insurance Claims Specialist Relationship Specialty Start Date End Date Bashir Cleary APRN-CNP [place] [address] PCP - General Family Medicine 10/11/24 Medical Insurance Claims Specialist Relationship Specialty Start Date End Date Bashir Cleary CNP [place] [id number] [place] [address] PCP - General Nurse Practitioner 10/17/24 Medical Insurance Claims Specialist Relationship Specialty Start Date End Date Bashir Cleary CNP [place] [address] [place] [address] PCP - General Nurse Practitioner 10/17/24 Medical Insurance Claims Specialist Relationship Specialty Start Date End Date Bashir Cleary CNP [place] [address] [place] [address] PCP - General Nurse Practitioner 10/17/24 Medical Insurance Claims Specialist Relationship Specialty Start Date End Date Bashir Cleary CNP [place] [address] [place] [address] PCP - General Nurse Practitioner 10/17/24 Medical Insurance Claims Specialist Relationship Specialty Start Date End Date Bashir Cleary CNP [place] [address] [place] [address] PCP - General Nurse Practitioner 10/17/24 Team Status: Active Member Role Status Dates Dr. Dorian Metzger MD Family Provider Active WENDI Heath Primary Care Provider Active Team Status: Inactive Member Role Status Dates WENDI Heath Primary Care Provider Active Start: March 22, 2025 End: March 22, 2025 WENDI Heath Attending Provider Active St art: March 22, 2025 End: March 22, 2025 WEDNI Heath Referring Provider Active St art: March 22, 2025 End: March 22, 2025 (unrecognized sect ion and content) No Status Records FoundNo Status Records FoundNo Status Records FoundNo Status Records Found INFORMATION SOURCE (unrecogn ized section and content) DATE CREATED AUTHOR 10/23/2024 [facility] DATE CREATED AUTHOR AUTHOR'S ORGANIZ ATION 11/29/2024 [facility] DATE CREATED AUTHOR AUTHOR'S ORGANIZ ATION 12/14/2024 [facility] DATE CREATED AUTHOR AUTHOR'S ORGANIZ ATION 03/31/2025 [facility] Goals (unrecognized section and content) Goals may be documented in a n alternate section FOR RECORDS PERTAINING TO PATIENTS WHO ARE OR HAVE BEEN ENROLLED IN A CHEMICAL DEPENDENCY/SUBSTANCEABUSE PROGRAM, SOME INFORMATION MAY BE OMITTED. This clinical summary was aggregated from multiple sources. Caution should be exercised in using it in the provision of clinical care. This summary normalizes information from multiple sources, and as a consequence, information in this document may materially change the coding, format and clinical context of patient data. In addition, data may be omitted in some cases. CLINICAL DECISIONS SHOULD BE BASED ON THE PRIMARY CLINICAL RECORDS. [employer] [facility]. provides no warranty or guarantee of the accuracy or completeness of information in this document.
[2025-04-10 14:08] LABS: PSA, Free 1.43 ng/mL; PSA, Free % 17.3 % (.)
== END | disposition home or self-care (01) ==
LOC: LAB 08:29
PROVIDERS: PCP Nurse Practitioner Family; Referring Provider Urology; Visit Provider Urology
DX: R97.20 Elevated prostate specific antigen [PSA] (principal)
CPT/HCPCS: 36415; 84153; 84154

== ENCOUNTER → 2025-05-07 | Outpatient (CLI) | payer MEDICARE, SELFPAY ==
--- NOTE | 2025-05-07 09:40 | MRI_ITS ---
PROCEDURE: PELVIS W/WO CONTRAST, 05/07/2025 REASON FOR EXAM: ELEVATED PSA TECHNIQUE: Multisequence multiplanar MRI pelvis was performed with and without IV contrast. IV Contrast: 17 mL Clariscan COMPARISON: None FINDINGS: Prostate size: 5.6 x 4.2 x 4.5 cm, estimated volume 55 mL. Transition zone: PI-RADS 2 findings. Peripheral Zone: Background changes of likely prostatitis (PI-RADS 2). Additional lesions as below: *Lesion 1: Ill-defined signal in the LEFT posterior peripheral zone base to midgland extending inferiorly into the LEFT posterolateral apex is difficult to measure, spanning up to 2.0 cm on sagittal images (series 5, image 19, series 12 images 19 and 21).. *T2 score: 3. *DWI score: 3. *DCE: Positive. *Overall PI-RADS: PI-RADS 4. *Extracapsular extension:No gross extracapsular extension, however, there is capsular abutment well over 1 cm which increases the risk of occult early/microscopic extracapsular extension. Note that this includes the region of the LEFT neurovascular bundle, which appears grossly unremarkable. Neurovascular bundles: Unremarkable. Seminal vesicles: Unremarkable. Bladder: Underdistended and suboptimally evaluated. Appearance suggestive of chronic bladder outlet obstruction. Lymph nodes: LEFT external iliac nodes up to 13 mm short axis LEFT common iliac node, 10 mm short axis. RIGHT external iliac node nodes up to 13 mm short axis. Bones: Lesion identified. Nonspecific 7 mm faintly T1 bright and probably faintly enhancing lesion in the LEFT superior pubic ramus. No frankly destructive bony. L5-S1 degenerative disc disease. Other: Tiny fat containing LEFT larger than RIGHT inguinal hernias. Diverticulosis. MRI/Pelvis W/WO Contrast IMPRESSION: 1. 2.0 cm ill-defined lesion in the LEFT posterior peripheral zone extending fr om base/midgland to apex is borderline but technically meets criteria for PI-RADS 4. 2. No gross extracapsular extension, however, there is capsular abutment well o ruma 1 cm which increases the risk of occult early/microscopic extracapsular extension. Note that this includes the region o f the LEFT neurovascular bundle, which appears grossly unremarkable. 3. Mild/moderate bilateral external iliac lymphadenopathy and mild LEFT common iliac lymphadenopathy by PI-RADS criteria. If prostate cancer is confirmed, this would be at least mildly suspicious for howie y indu metastasis. 4. 7 mm nonspecific bony lesion in the LEFT superior pubic ramus. Correlate wi th medical history/PSA and any available outside imaging to establish stability however. If unavailable, consider attention on f ollow-up as indicated. Bone scan could also be considered. 5. Additional description as above. Reading Location: [id number]
== END | disposition home or self-care (01) ==
PROVIDERS: PCP Nurse Practitioner Family; Referring Provider Urology; Visit Provider Urology
DX: R97.20 Elevated prostate specific antigen [PSA] (principal)
CPT/HCPCS: 72197; A9575; A4216

== ENCOUNTER → 2025-06-10 | Outpatient (CLI) | payer MEDICARE, SELFPAY ==
--- NOTE | 2025-06-10 13:00 | PROSBIL_PTH ---
PATIENT: SOFYA CABRERA LOC: [facility] U#:[id number] AGE/SX: 69/M ROOM: RE06/10/[address]: Dr. Suraj Fontaine MD : [id number] BED: DIS: 06/10/2025 SPEC #: [id number] RECD: 06/10/25 16:40 STATUS: CATHERINE RECarley #: [id number] CORY: 06/10/25 13:[address]: Suraj Fontaine DEPT: SURGICAL PATHOLOGY RECD BY: Sandor Hong ENTERED: 06/11/25 09:29 SP TYPE: PROST BX OT DR: Meghana Casas, DIRECTOR DATA PROCESSING-C Tissues: A - PROSTATE RIGHT B - PROSTATE RIGHT C - PROSTATE RIGHT D - PROSTATE LEFT E - PROSTATE LEFT F - PROSTATE LEFT Procedures: PROSTATE BX Immunohistochemical Stains HEADER OPERATION: Prostate biopsy PRE-OP DIAGNOSIS: Elevated PSA TISSUE SUBMITTED: A - Right apex, B - Right mid, C - Right base, D - Left apex, E - Left mid, F - Left base MICROSCOPIC DIAGNOSIS A. Prostate, right, apex, biopsy: - Benign prostate tissue with focal mild acute inflammation. - PIN4 IHC supports the histologic impression. B. Prostate, right, mid, biopsy: - Focal high grade PIN. - PIN4 IHC supports the histologic impression. C. Prostate, right, base, biopsy: - High grade PIN. - PIN4 IHC supports the histologic impression. D. 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 - PIN4 IHC supports the histologic impression. E. Prostate, left, mid, biopsy: - Rare atypical acini. - PIN4 IHC is negative for evidence of malignancy. F. Prostate, left, base, biopsy: - High grade PIN - PIN4 IHC supports the histologic impression. MICROSCOPIC DESCRIPTION Slides are reviewed. ?All matched controls reacted appropriately. These tests were developed and their performance characteristics determined by [facility]. They may not have been cleared or approved by the [place]. Food and Drug Administration. The FDA has determined that such clearance or approval is not necessary.? The above immunohistochemical?markers are reviewed by the Pathologis. GROSS DESCRIPTION Received in 6 formalin containers labeled with the patient's name and date of . Designated as: A. RA is a biswas tissue core, 2.1 cm in length by 0.1 cm in diameter. Entirely submitted in 1 cassette. B. RM is a fragmented biswas tissue core, 2.0 cm in length by 0.1 cm in diameter. Entirely submitted in 1 cassette. C. RB is a biswas tissue core, 1.6 cm in length by 0.1 cm in diameter. Entirely submitted in 1 cassette. D. LA are 3 biswas tissue cores, 0.7-1.6 cm in length by 0.1 cm in diameter. Entirely submitted in 1 cassette. E. LM are 3 fragmented biswas tissue cores, 0.9-1.6 cm in length by 0.1 cm in diameter. Entirely submitted in 1 cassette. F. LB are 3 fragmented biswas tissue cores, 0.6-1.3 cm in length by 0.1 cm in diameter. Entirely submitted in 1 cassette. NE 06/11/2025 CPT:[id number]
--- OUTSIDE RECORDS SUMMARY | 2025-06-10 21:26 | XMS RPT_ITS | CCD ---
Author Organization [facility] CliniSyid Care Team Providers Care Talent Development Analyst Name Role Phone Evin NOVELTY BALLOON ASSEMBLER AND PACKER-HOTEL FRONT OFFICE MANAGER, Bashir Primary Care Provider EVIN, BASHIR Primary Care Unavailable ENRRIQUE ARROYO Admitting Unavailable FELIX LUNDY Attending Unavailable CARLY JOSEPH Consulting Unavailable Evin HOTEL FRONT OFFICE MANAGER, Bashir Primary Care Provider VERONICA MAN Attending Unavailable EVIN, BASHIR Primary Care Unavailable FACUNDO WOODS Admitting Unavailab ERLIDNA Campuzano Consulting Unavailable JAG MEDRANO Attending UnavailHONEY Marrufo Referring Unavailable EVIN, BASHIR Primary Care Unavailable FACUNDO WOODS Admitting Unavailab FACUNDO Ohara Consulting Unavailab le EVIN, BASHIR Primary Care Unavailable FACUNDO WOODS Attending Unavailab reynaldo CLARKERFACUNDO Admitting Unavailab le EVIN, BASHIR Primary Care Unavailable FACUNDO WOODS Attending Unavailab le EVIN, BASHIR Primary Care Unavailable FACUNDO WOODS Attending Unavailab le Evin SAP BW DEVELOPER-C, Bashir Primary Care Provider Evin SAP BW DEVELOPER-C, Bashir Attending Provider Evin SAP BW DEVELOPER-C, Bashir Referring Provider [phone] Zhen PRICE, Dr. Suraj Khan Attending Provider Dr. Suraj Fontaine MD Referring Provider Evin, Bashir Attending Unavailable Evin, Bashir Primary Care Unavailable Evin, Bashir Referring Unavailable Evin, Bashir Primary Care Unavailable Suraj Fontaine Referring Unavailable Suraj Fontaine Attending Unavailable Evin, Bashir Primary Care Unavailable Suraj Fontaine Referring Unavailable Suraj Fontaine Attending Unavailable Medications Current Medications Medication Drug Class(es) [...] aspirin 81 mg delayed release oral tablet (3 sources) Platelet Aggregation Inhibitor, Nonsteroidal Anti-inflammatory Drug Start: [...] 12 hours scheduled, First dose on Hien 12/12/24 at 0900 furosemide 20 mg oral tablet [...] Active Start: 10-11-2024 take 1 tablet by db every six hours as needed 5 mg, [...] mouth once 40 mEq, oral, Once, On Evangelista n 10/14/24 at 1200, For 1 dose, Dissolve each packet in 4 ounces of water = 5 mEq per 1 oz fluid. Start: 10-14-2024 take 1 [oz_av] by mo [facility] twice daily 40 mEq, oral, 2 times daily, First dose on 10/14/24 at 0900, Dissolve each packet in 4 ounces of water = 5 mEq per 1 oz fluid. pravastatin sodium 20 mg oral tablet (3 sources) HMG-CoA Reductase Inhibitor Start: 01-10-2019 take 1 [...] 2137 Start: 10-11-2024 take 1 tablet by [facility] every six hours acetaminophen (Tylenol) tablet 650 [...] mL, oral, Once in imaging, Starting on 10/17/24 at 1235, For 1 dose, Administer over [...] 1041, Intra-Procedure lisinopril 20 mg oral tablet (16 sources) Angiotensin Converting Enzyme Inhibitor Start: 11-24-2024 End: 11-24-2024 take 40 mg by mouth once daily at lunch 40 mg, Oral, Daily with lunch, First dose on 11/24/24 at 1200 Start: 10-18-2024 End: 10-19-2024 take 40 mg by mouth once daily at lunch 40 mg, Oral, Daily with lunch, First dose on Hien 10/18/24 at 1200 Start: 01-10-2019 End: 11-19-2024 take 1 tablet by mouth once daily Lisinopril (Zestril) 40 MG tablet Active 40 mg PO DAILY January 10, 2019 12:00am 50 ml magnesium sulfate 40 mg/ml injection [...] of infection: Community-Acquired, Indications: Abdominal Infection sennosides, shelter 8.6 mg oral tablet (1 source) Start: [...] [Essential (primary) hypertension] Onset: 11-14-2024 11-14-2024 Chronic Other screening for suspected conditions (not mental disorders or infectious disease) (1 source) Elevated prostate specific antigen [PSA]; Translations: [Elevated prostate specific antigen [PSA]] Onset: 05-14-2025 Episodic Residual codes; unclassified (1 source) Acquired absence of other specified parts of digestive tract; Translations: [Other postprocedural status] 12-12-2024 Episodic Results Test Name Value Interpretation Reference Range Facility Magnetic resonance imaging r eportOrdered By: Armando Burgess on 05-09-2025 Study report [facility] Imaging Services [address] [place] [address] [id number] Pelvis W/WO Contrast MR#: [id number] Acct: [id number] Name: SOFYA CABRERA Rep #: [id number] : 1955 M 69 From: Terri Burgess MD PCP: WENDI Heath Status: REG CLI Study:Pelvis W/WO Contrast Date of Exam: 05/07/25 Exam# [id number] Ordering Dr: Kisha Fontaine MD PROCEDURE: PELVIS W/WO CONTRAST, 05/07/2025 REASON FOR EXAM: ELEVATED PSA TECHNIQUE: Multisequence multiplanar MRI pelvis was performed with and without IV contrast. IV Contrast: 17 mL Clariscan COMPARISON: None FINDINGS: Prostate size: 5.6 x 4.2 x 4.5 cm, estimated volume 55 mL. Transition zone: PI-RADS 2 findings. Peripheral Zone: Background changes of likely prostatitis (PI-RADS 2). Additional lesions as below: *Lesion 1: Ill-defined signal in the LEFT posterior peripheral zone base to midgland extending inferiorly into the LEFT posterolateral apex is difficult to measure, spanning up to 2.0 cm on sagittal images (series 5, image 19, series 12 images 19 and 21).. *T2 score: 3. *DWI score: 3. *DCE: Positive. *Overall PI-RADS: PI-RADS 4. *Extracapsular extension:No gross extracapsular extension, however, there is capsular abutment well over 1 cm which increases the risk of occult early/microscopic extracapsular extension. Note that this includes the region of the LEFT neurovascular bundle, which appears grossly unremarkable. Neurovascular bundles: Unremarkable. Seminal vesicles: Unremarkable. Bladder: Underdistended and suboptimally evaluated. Appearance suggestive of chronic bladder outlet obstruction. Lymph nodes: LEFT external iliac nodes up to 13 mm short axis LEFT common iliac node, 10 mm short axis. RIGHT external iliac node nodes up to 13 mm short axis. Bones: Lesion identified. Nonspecific 7 mm faintly T1 bright and probably faintly enhancing lesion in the LEFT superior pubic ramus. No frankly destructive bony. L5-S1 degenerative disc disease. Other: Tiny fat containing LEFT larger than RIGHT inguinal hernias. Diverticulosis. MRI/Pelvis W/WO Contrast IMPRESSION: 1. 2.0 cm ill-defined lesion in the LEFT posterior peripheral zone extending from base/midgland to apex is borderline but technically meets criteria for PI-RADS 4. 2. No gross extracapsular extension, however, there is capsular abutment well over 1 cm which increases the risk of occult early/microscopic extracapsular extension. Note that this includes the region ofthe LEFT neurovascular bundle, which appears grossly unremarkable. 3. Mild/moderate bilateral external iliac lymphadenopathy and mild LEFT common iliac lymphadenopathy by PI-RADS criteria. If prostate cancer is confirmed, this would be at least mildly suspicious for earlynodal metastasis. 4. 7 mm nonspecific bony lesion in the LEFT superior pubic ramus. Correlate with medical history/PSA and any available outside imaging to establish stability however. If unavailable, consider attention on follow-up as indicated. Bone scan could also be considered. 5. Additional description as above. Reading Location: [facility] CC: SAP BW DEVELOPER-C Bashir Cleary; Dr. Suraj Fontaine MD ~ Continuity Person: Signed [facility] Pelvis W/WO Contraston 05-07 Pelvis W/WO Contrast [facility] Imaging Services [address] [place] [address] Pelvis W/WO Contrast MR#: [id number] Acct: [id number] Name: SOFYA CABRERA Rep #: [id number] : 1955 M 69 From: Armando Burgess MD PCP: WENDI Heath Status: REG CLI Study: Pelvis W/WO Contrast Date of Exam: 05/07/25 Exam# [id number] Ordering Dr: Suraj Fontaine MD PROCEDURE: PELVIS W/WO CONTRAST, 05/07/2025 REASON FOR EXAM: ELEVATED PSA TECHNIQUE: Multisequence multiplanar MRI pelvis was performed with and without IV contrast. IV Contrast: 17 mL Clariscan COMPARISON: None FINDINGS: Prostate size: 5.6 x 4.2 x 4.5 cm, estimated volume 55 mL. Transition zone: PI-RADS 2 findings. Peripheral Zone: Background changes of likely prostatitis (PI-RADS 2). Additional lesions as below: *Lesion 1: Ill-defined signal in the LEFT posterior peripheral zone base to midgland extending inferiorly into the LEFT posterolateral apex is difficult to measure, spanning up to 2.0 cm on sagittal images (series 5, image 19, series 12 images 19 and 21).. *T2 score: 3. *DWI score: 3. *DCE: Positive. *Overall PI-RADS: PI-RADS 4. *Extracapsular extension:No gross extracapsular extension, however, there is capsular abutment well over 1 cm which increases the risk of occult early/microscopic extracapsular extension. Note that this includes the region of the LEFT neurovascular bundle, which appears grossly unremarkable. Neurovascular bundles: Unremarkable. Seminal vesicles: Unremarkable. Bladder: Underdistended and suboptimally evaluated. Appearance suggestive of chronic bladder outlet obstruction. Lymph nodes: LEFT external iliac nodes up to 13 mm short axis LEFT common iliac node, 10 mm short axis. RIGHT external iliac node nodes up to 13 mm short axis. Bones: Lesion identified. Nonspecific 7 mm faintly T1 bright and probably faintly enhancing lesion in the LEFT superior pubic ramus. No frankly destructive bony. L5-S1 degenerative disc disease. Other: Tiny fat containing LEFT larger than RIGHT inguinal hernias. Diverticulosis. MRI/Pelvis W/WO Contrast IMPRESSION: 1. 2.0 cm ill-defined lesion in the LEFT posterior peripheral zone extending from base/midgland to apex is borderline but technically meets criteria for PI-RADS 4. 2. No gross extracapsular extension, however, there is capsular abutment well over 1 cm which increases the risk of occult early/microscopic extracapsular extension. Note that this includes the region of the LEFT neurovascular bundle, which appears grossly unremarkable. 3. Mild/moderate bilateral external iliac lymphadenopathy and mild LEFT common iliac lymphadenopathy by PI-RADS criteria. If prostate cancer is confirmed, this would be at least mildly suspicious for early indu metastasis. 4. 7 mm nonspecific bony lesion in the LEFT superior pubic ramus. Correlate with medical history/PSA and any available outside imaging to establish stability however. If unavailable, consider attention on follow-up as indicated. Bone scan could also be considered. 5. Additional description as above. Reading Location: [id number] CC: WENDI Cleary; Dr. Suraj Fontaine MD Continuity Person: Signed Normal [facility] PSA Total+%Freeon 04-10-2025 PSA, FREE 1.43 ng/mL Normal N/A [facility] Comment on above: Result Comment: Hieu FISHER methodology. Performed By: #### L 3110.0500 #### [facility] [address] [place], [place], [id number] PSA, FREE % 17.3 Normal . [facility] Comment on above: Result Comment: The table below lists the probability of prostate cancer for men with non-suspicious FREDDY results and total PSA between 4 and 10 ng/mL, by patient age (Catalona et al, ANEESH 1998, 279:1542). % Free PSA 50-64 yr 65-75 yr 0.00-10.00% 56% 55% 10.01-15.00% 24% 35% 15.01-20.00% 17% 23% 20.01-25.00% 10% 20% >25.00% 5% 9% Please note: Sheryl et al did not make specific recommendations regarding the use of percent free PSA for any other population of men. Performed at: [facility] [address] [id number] Front Desk Coordinator: Bandar Dorsey PhD, Phone: [phone] Performed By: #### L 3110.0500 #### [facility] [address] [place], [address] PSA, TOTAL ULTR 8.250 ng/mL Abnormal 0.000-4.000 [facility] Comment on above: Result Comment: Hieu FISHER methodology. According to the [employer], Serum PSA should decrease and remain at undetectable levels after radical prostatectomy. The AUA defines biochemical recurrence as an initial PSA value 0.200 ng/mL or greater followed by a subsequent confirmatory PSA value 0.200 ng/mL or greater. Values obtained with different assay methods or kits cannot be used interchangeably. Results cannot be interpreted as absolute evidence of the presence or absence of malignant disease. Performed By: #### L 3110.0500 #### [facility] [address] [place], [address] Serum or plasma free prostat e specific antigen (PSA)/total PSA mass ratioOrdered By: Suraj Fontaine on 04-09-2025 Free PSA/Total PSA [Mass fraction] 17.3 % . [facility] Comment on above: The table below list s the probability of prostate cancer formen with non-suspicious FREDDY results and total PSA between4 and 10 ng/mL, by patient age (Sheryl et al, ANEESH 1998,279:1542). % Free PSA 50-64 yr 65-75 yr 0.00-10.00% 56% 55% 10.01-15.00% 24% 35% 15.01-20.00% 17% 23% 20.01-25.00% 10% 20% >25.00% 5% 9%Please note: Sheryl et al did not make specific recommendations regarding the use of percent free PSA for any other population of men.Performed at: [facility] [address] [id number] Director: Bandar Dorsey PhD, Phone: [phone] Absolute lymphocyte countOrd ered By: Casco Evin on 03-22-2025 Lymphocytes Auto (Unsp spec) [#/Vol] 1.58 10*3/uL 0.83-4.51 [facility] Absolute neutrophil countOrd ered By: [facility] Neutrophils (Bld) [#/Vol] 4.3 10*3/uL 2.0-7.7 [facility] Anion gap in Serum or Plasma Ordered By: Casco Evin on 03-22-2025 Anion gap [Moles/Vol] 12 mmol/L 5- [facility] Automated lymphocyte count a s percentage of total leukocytesOrdered By: [facility] on 03-22-2025 Lymphocytes/100 WBC Auto (Unsp spec) 22.7 % - [facility] BUN/creatinine ratioOrdered By: [facility] on 03-22-2025 Urea nitrogen/Creatinine [Mass ratio] 14.7 mg/mg 10- [facility] Basophil percentageOrdered B y: Bashir Evin on 03-22-2025 Basophils/100 WBC (Bld) 1.0 % 0-1 [facility] Bilirubin, totalOrdered By: [facility] on 03-22-2025 Bilirubin [Mass/Vol] 0.39 mg/dL 0.00-1.30 [facility] CBC W/Diff, Automatedon 03-01 Absolute Lymph 1.58 X10 3/uL Normal 0.83-4.51 [facility] Comment on above: Performed By: #### L 500.4100, L501.9985, L501.9910, L500.4050, L100.0100 #### [facility] [address] [place], [address] Absolute Neut 4.3 X10 3/uL Normal 2.0-7.7 [facility] Comment on above: Performed By: #### L 500.4100, L501.9985, L501.9910, L500.4050, L100.0100 #### [facility] [address] [place], [address] Basophils/100 WBC (Bld) 1.0 % Normal 0-1 [facility] Comment on above: Performed By: #### L 500.4100, L501.9985, L501.9910, L500.4050, L100.0100 #### [facility] [address] [place], [address] Eosinophils/100 WBC (Bld) 1.9 % Normal 0-5 [facility] Comment on above: Performed By: #### L 500.4100, L501.9985, L501.9910, L500.4050, L100.0100 #### [facility] [address] [place], [address] Erythrocyte distribution width (RBC) [Ratio] 13.2 % Normal 11.6-14.6 [facility] Comment on above: Performed By: #### L 500.4100, L501.9985, L501.9910, L500.4050, L100.0100 #### [facility] [address] [place], [address] Hematocrit (Bld) [Volume fraction] 38.0 % Low 40-54 [facility] Comment on above: Performed By: #### L 500.4100, L501.9985, L501.9910, L500.4050, L100.0100 #### [facility] [address] [place], [address] Hemoglobin (Bld) [Mass/Vol] 12.8 g/dL Low 13.0-16.5 [facility] Comment on above: Performed By: #### L 500.4100, L501.9985, L501.9910, L500.4050, L100.0100 #### [facility] [address] [place], [address] IG% 0.600 Normal 0.0-0.9 [facility] Comment on above: Result Comment: IG% - Immature Granulocytes (promyelocytes, myelocytes and metamyelocytes) > 1% indicates that a LEFT SHIFT is Present. Performed By: #### L 500.4100, L501.9985, L501.9910, L500.4050, L100.0100 #### [facility] [address] [place], [address] Lymphocytes/100 WBC (Bld) 22.7 % Normal 19-41 [facility] Comment on above: Performed By: #### L 500.4100, L501.9985, L501.9910, L500.4050, L100.0100 #### [facility] [address] [place], [address] MCH (RBC) [Entitic mass] 31.8 pg Normal 27.0-32.0 [facility] Comment on above: Performed By: #### L 500.4100, L501.9985, L501.9910, L500.4050, L100.0100 #### [facility] [address] [place], [address] MCHC (RBC) [Mass/Vol] 33.7 g/dL Normal 32-36 [facility] Comment on above: Performed By: #### L 500.4100, L501.9985, L501.9910, L500.4050, L100.0100 #### [facility] [address] [place], [address] MCV (RBC) [Entitic vol] 94.3 fL High 80-94 [facility] Comment on above: Performed By: #### L 500.4100, L501.9985, L501.9910, L500.4050, L100.0100 #### [facility] [address] [place], [address] Monocytes/100 WBC (Bld) 12.5 % High 0-10 [facility] Comment on above: Performed By: #### L 500.4100, L501.9985, L501.9910, L500.4050, L100.0100 #### [facility] [address] [place], [address] Neutrophils/100 WBC (Bld) 61.3 % Normal 47-70 [facility] Comment on above: Performed By: #### L 500.4100, L501.9985, L501.9910, L500.4050, L100.0100 #### [facility] [address] [place], [address] Nucleated RBC (Bld) [#/Vol] 0 10*3/uL Normal 0-5 [facility] Comment on above: Performed By: #### L 500.4100, L501.9985, L501.9910, L500.4050, L100.0100 #### [facility] [address] [place], [address] Platelet mean volume (Bld) [Entitic vol] 10.8 fL Normal 6.2-12.0 [facility] Comment on above: Performed By: #### L 500.4100, L501.9985, L501.9910, L500.4050, L100.0100 #### [facility] [address] [place], [address] Platelets (Bld) [#/Vol] 211 10*3/uL Normal 150-450 [facility] Comment on above: Performed By: #### L 500.4100, L501.9985, L501.9910, L500.4050, L100.0100 #### [facility] [address] [place], [address] RBC (Bld) [#/Vol] 4.03 10*6/uL Low 4.6-6.2 [facility] Comment on above: Performed By: #### L 500.4100, L501.9985, L501.9910, L500.4050, L100.0100 #### [facility] [address] [place], [address] RDW SD 45.3 fl High 35.1-43.9 [facility] Comment on above: Performed By: #### L 500.4100, L501.9985, L501.9910, L500.4050, L100.0100 #### [facility] [address] [place], [address] WBC (Bld) [#/Vol] 7.0 10*3/uL Normal 4.4-11.0 [facility] Comment on above: Performed By: #### L 500.4100, L501.9985, L501.9910, L500.4050, L100.0100 #### [facility] [address] [place], [address] Calculated very low density lipoprotein (VLDL) cholesterol measurementOrdered By: Bashir Cleary on 03-22-2025 Calculated very low density lipoprotein (VLDL) cholesterol measurement 25 mg/dL 5-40 [facility] Carbon dioxide, total [Moles /volume] in Central venous bloodOrdered By: Bashir Cleary on 03-22-2025 CO2 [Moles/Vol] 24.6 mmol/L 21.0-32.0 [facility] Chloride assayOrdered By: Ra lea Cleary on 03-22-2025 Chloride [Moles/Vol] 101 mmol/L 98-108 [facility] Comprehensive Metabolic Prof ilon 03-22-2025 Albumin [Mass/Vol] 4.0 g/dL Normal 3.4-4.8 [facility] Comment on above: Performed By: #### L 500.4100, L501.9985, L501.9910, L500.4050, L100.0100 #### [facility] [address] [place], [address] Albumin/Globulin [Mass ratio] 1.3 {ratio} Normal 0.9-2.4 [facility] Comment on above: Performed By: #### L 500.4100, L501.9985, L501.9910, L500.4050, L100.0100 #### [facility] [address] [place], [address] ALK PHOS 77 U/L Normal 40-129 [facility] Comment on above: Performed By: #### L 500.4100, L501.9985, L501.9910, L500.4050, L100.0100 #### [facility] [address] [place], [address] ALT [Catalytic activity/Vol] 16 U/L Normal <=46 [facility] Comment on above: Performed By: #### L 500.4100, L501.9985, L501.9910, L500.4050, L100.0100 #### [facility] [address] [place], [address] AST [Catalytic activity/Vol] 19 U/L Normal <=37 [facility] Comment on above: Performed By: #### L 500.4100, L501.9985, L501.9910, L500.4050, L100.0100 #### [facility] [address] [place], [address] Bilirubin [Mass/Vol] 0.39 mg/dL Normal 0.00-1.30 [facility] Comment on above: Performed By: #### L 500.4100, L501.9985, L501.9910, L500.4050, L100.0100 #### [facility] [address] [place], [address] BUN/CRE 14.7 RATIO Normal 10-20 [facility] Comment on above: Performed By: #### L 500.4100, L501.9985, L501.9910, L500.4050, L100.0100 #### [facility] [address] [place], [address] Calcium [Mass/Vol] 9.7 mg/dL Normal 7.6-11.0 [facility] Comment on above: Performed By: #### L 500.4100, L501.9985, L501.9910, L500.4050, L100.0100 #### [facility] [address] [place], [address] Chloride [Moles/Vol] 101 mmol/L Normal 98-108 [facility] Comment on above: Performed By: #### L 500.4100, L501.9985, L501.9910, L500.4050, L100.0100 #### [facility] [address] [place], [address] CO2 [Moles/Vol] 24.6 mmol/L Normal 21.0-32.0 [facility] Comment on above: Performed By: #### L 500.4100, L501.9985, L501.9910, L500.4050, L100.0100 #### [facility] [address] [place], [address] Creatinine [Mass/Vol] 0.93 mg/dL Normal 0.70-1.20 [facility] Comment on above: Performed By: #### L 500.4100, L501.9985, L501.9910, L500.4050, L100.0100 #### [facility] [address] [place], [address] GAP 12 Normal 5-15 [facility] Comment on above: Performed By: #### L 500.4100, L501.9985, L501.9910, L500.4050, L100.0100 #### [facility] [address] [place], [address] GFR/1.73 sq M.predicted among non-blacks MDRD (S/P/Bld) [Vol rate/Area] 88 mL/min/{1.73_m2} Normal >60 [facility] Comment on above: Result Comment: mL/m in/1.73m2 CKD-EPI Creatinine Equation (2020) Performed By: #### L 500.4100, L501.9985, L501.9910, L500.4050, L100.0100 #### [facility] [address] [place], [address] Globulin (S) [Mass/Vol] 3.2 g/dL Normal 2.2-4.2 [facility] Comment on above: Performed By: #### L 500.4100, L501.9985, L501.9910, L500.4050, L100.0100 #### [facility] [address] [place], [address] Glucose [Mass/Vol] 96 mg/dL Normal 70-99 [facility] Comment on above: Performed By: #### L 500.4100, L501.9985, L501.9910, L500.4050, L100.0100 #### [facility] [address] [place], [address] Potassium [Moles/Vol] 3.8 mmol/L Normal 3.3-5.1 [facility] Comment on above: Performed By: #### L 500.4100, L501.9985, L501.9910, L500.4050, L100.0100 #### [facility] [address] [place], [address] Sodium [Moles/Vol] 138 mmol/L Normal 133-145 [facility] Comment on above: Performed By: #### L 500.4100, L501.9985, L501.9910, L500.4050, L100.0100 #### [facility] [address] [place], [address] T PROT 7.2 g/dL Normal 5.9-8.4 [facility] Comment on above: Performed By: #### L 500.4100, L501.9985, L501.9910, L500.4050, L100.0100 #### [facility] [address] [place], [address] Urea nitrogen [Mass/Vol] 14 mg/dL Normal 4-19 [facility] Comment on above: Performed By: #### L 500.4100, L501.9985, L501.9910, L500.4050, L100.0100 #### [facility] [address] [place], [address] Eosinophil percentageOrdered By: Bashir Cleary on 03-22-2025 Eosinophils/100 WBC (Bld) 1.9 % 0-5 [facility] Erythrocyte distribution wid th ratioOrdered By: Bashir Cleary on 03-22-2025 Erythrocyte distribution width (RBC) [Ratio] 13.2 % 11.6-14.6 [facility] Erythrocyte distribution wid th standard deviationOrdered By: Bashir Cleary on 03-22-2025 Erythrocyte distribution width (RBC) [Ratio] 45.3 fl High 35.1-43.9 [facility] Glomerular filtration rate ( GFR) estimation/1.73 sq m using serum, plasma, or whole bOrdered By: Bashir Cleary on 03-22-2025 GFR/1.73 sq M.predicted among non-blacks MDRD (S/P/Bld) [Vol rate/Area] 88 mL/min/{1.73_m2} >60 [facility] Comment on above: mL/min/1.73m2 CKD-EP I Creatinine Equation (2020) Hematocrit Auto (Bld) [Volum e fraction]Ordered By: Bashir Cleary on 03-22-2025 Hematocrit (Bld) [Volume fraction] 38.0 % Low 40-54 [facility] Hemoglobin A1con 03-22-2025 HbA1c (Bld) [Mass fraction] 6.0 % High <=5.6 [facility] Comment on above: Result Comment: Norm al < 5.7 % Prediabetic 5.7 - 6.4 % Diabetic >or= 6.5 % Please note range changes. Performed By: #### L 500.4100, L501.9985, L501.9910, L500.4050, L100.0100 #### [facility] [address] [place], [address] Hemoglobin A1c percentageOrd ered By: Bashir Cleary on 03-22-2025 HbA1c (Bld) [Mass fraction] 6.0 % High <5.7 [facility] Comment on above: Normal < 5.7 % Predi abetic 5.7 - 6.4 % Diabetic >or= 6.5 % Please note range changes. Hemoglobin measurementOrdere d By: Bashir Cleary on 03-22-2025 Hemoglobin (Bld) [Mass/Vol] 12.8 g/dL Low 13.0-16.5 [facility] Immature granulocytes/100 WB C Auto (Bld)Ordered By: Bashir Cleary on 03-22-2025 Immature granulocytes/100 WBC (Bld) 0.600 % 0.0-0.9 [facility] Comment on above: IG% - Immature Granu locytes (promyelocytes, myelocytes and metamyelocytes) > 1% indicates that a LEFT SHIFT is Present. LDL calc ser/plasOrdered By: Bashir Cleary on 03-22-2025 Cholesterol in LDL [Mass/Vol] 127 mg/dL [facility] Comment on above: Wsfrbjgybw=636-758 m g/dL & Higher Ujhy=163 mg/dL or greater Laboratory - Chemistry and C hemistry - challengeOrdered By: Bashir Cleary on 03-22-2025 AST [Catalytic activity/Vol] 19 U/L <38 [facility] Lipid Profileon 03-22-2025 CHOL:HDL 4.08 Normal [facility] Comment on above: Performed By: #### L 500.4100, L501.9985, L501.9910, L500.4050, L100.0100 #### [facility] [address] [place], [address] Cholesterol [Mass/Vol] 202 mg/dL High <=200 [facility] Comment on above: Result Comment: Chol esterol level, Desirable <200 mg/dL Borderline high cholesterol 200-239 mg/dL High cholesterol >=240 mg/dL Recommendations of the NCEP Adult Treatment Panel for the following risk-cutoff thresholds for the [place] population. Performed By: #### L 500.4100, L501.9985, L501.9910, L500.4050, L100.0100 #### [facility] [address] [place], [address] Cholesterol in HDL [Mass/Vol] 50 mg/dL Normal [facility] Comment on above: Result Comment: Rosalba onal Cholesterol Education Program (NCEP) guidelines: <40 mg/dL: Low HDL-cholesterol (major risk factor for CHD) >= 60 mg/dL: High HDL-cholesterol (negative risk factor for CHD) HDL-cholesterol is affected by a number of factors, e.g. smoking, exercise, hormones, sex and age. Performed By: #### L 500.4100, L501.9985, L501.9910, L500.4050, L100.0100 #### [facility] [address] [place], [address] Cholesterol in LDL [Mass/Vol] 127 mg/dL Normal [facility] Comment on above: Result Comment: Bord eqlauq=498-073 mg/dL Higher Ymty=926 mg/dL or greater Performed By: #### L 500.4100, L501.9985, L501.9910, L500.4050, L100.0100 #### [facility] [address] [place], [address] Cholesterol in VLDL [Mass/Vol] 25 mg/dL Normal 5-40 [facility] Comment on above: Performed By: #### L 500.4100, L501.9985, L501.9910, L500.4050, L100.0100 #### [facility] [address] [place], [address] Triglyceride [Mass/Vol] 127 mg/dL Normal [facility] Comment on above: Result Comment: The drugs N-Acetylcysteine and Metamizole may falsely depress this assay. Normal range: <150 mg/dL Borderline High: 150-199 mg/dL High: 200-499 mg/dL Very High: >500 mg/dL Performed By: #### L 500.4100, L501.9985, L501.9910, L500.4050, L100.0100 #### [facility] [address] [place], [address] MCV (mean corpuscular volume ) determinationOrdered By: Bashir Cleary on 03-22-2025 MCV (RBC) [Entitic vol] 94.3 fL High 80-94 [facility] Mean corpuscular hemoglobin (MCH) determinationOrdered By: Bashir Cleary on 03-22-2025 MCH (RBC) [Entitic mass] 31.8 pg 27.0-32.0 [facility] Mean corpuscular hemoglobin concentration (MCHC) determinationOrdered By: Bashir Cleary on 03-22-2025 MCHC (RBC) [Mass/Vol] 33.7 g/dL 32-36 [facility] Mean platelet volume determi nationOrdered By: Bashir Cleary on 03-22-2025 Platelet mean volume (Bld) [Entitic vol] 10.8 fL 6.2-12.0 [facility] Monocyte percentageOrdered B y: Bashir Cleary on 03-22-2025 Monocytes/100 WBC (Bld) 12.5 % High 0-10 [facility] Neutrophil percentageOrdered By: Bashir Cleary on 03-22-2025 Neutrophils/100 WBC (Bld) 61.3 % 47-70 [facility] Nucleated red blood cell per centageOrdered By: Bashir Cleary on 03-22-2025 Nucleated RBC/100 WBC (Bld) [Ratio] 0 % 0-5 [facility] PSA,Total - Annual Screenon 03-22-2025 PSA,TOT SCREEN 8.50 ng/mL High 0.02-4.00 [facility] Comment on above: Result Comment: This test [...] L 500.4100, L501.9985, L501.9910, L500.4050, L100.0100 #### [facility] [address] [place], [address] Platelet countOrdered By: Ra lea Cleary on 03-22-2025 Platelets (Bld) [#/Vol] 211 10*3/uL 150-450 [facility] Potassium measurement (mass/ volume)Ordered By: Bashir Cleary on 03-22-2025 Potassium (Unsp spec) [Mass/Vol] 3.8 mmol/L 3.3-5.1 [facility] RBC Auto (Bld) [#/Vol]Ordere d By: Bashir Cleayr on 03-22-2025 RBC (Bld) [#/Vol] 4.03 10*6/uL Low 4.6-6.2 [facility] Screening total cholesterol/ high density lipoprotein (HDL) cholesterol ratioOrdered By: Bashir Cleary on 03-22-2025 Cholesterol.total/Cassie sterol in HDL [Mass ratio] 4.08 {ratio} [facility] Serum creatinine measurement (mass/volume)Ordered By: Bashir Cleary on 03-22-2025 Creatinine [Mass/Vol] 0.93 mg/dL 0.70-1.20 [facility] Serum globulin measurementOr dered By: Bashir Cleary on 03-22-2025 Globulin (S) [Mass/Vol] 3.2 g/dL 2.2-4.2 [facility] Serum glucose measurement (m ass/volume)Ordered By: Bashir Cleary on 03-22-2025 Glucose [Mass/Vol] 96 mg/dL 70-99 [facility] Serum or plasma alanine de otransferase (ALT) measurementOrdered By: Bashir Cleary on 03-22-2025 ALT [Catalytic activity/Vol] 16 U/L <47 [facility] Serum or plasma albumin addy urement (mass/volume)Ordered By: Bashir Cleary on 03-22-2025 Albumin [Mass/Vol] 4.0 g/dL 3.4-4.8 [facility] Serum or plasma albumin/glob ulin mass ratioOrdered By: Bashir Cleary on 03-22-2025 Albumin/Globulin [Mass ratio] 1.3 {ratio} 0.9-2.4 [facility] Serum or plasma alkaline robert sphatase measurementOrdered By: Bashir Cleary on 03-22-2025 ALP [Catalytic activity/Vol] 77 U/L 40-129 [facility] Serum or plasma calcium addy urement (mass/volume)Ordered By: Bashir Cleary on 03-22-2025 Calcium [Mass/Vol] 9.7 mg/dL 7.6-11.0 [facility] Serum or plasma cholesterol in HDL measurement (mass/volume)Ordered By: Bashir Cleary on 03-22-2025 Cholesterol in HDL [Mass/Vol] 50 mg/dL >40 [facility] Comment on above: National Cholesterol Education Program (NCEP) guidelines:<40 mg/dL: Low HDL-cholesterol (major risk factor for CHD)>= 60 mg/dL: High HDL-cholesterol (negative risk factor for CHD)HDL-cholesterol is affected by a number of factors, e.g. smoking, exercise, hormones, sex and age. Serum or plasma cholesterol measurement (mass/volume)Ordered By: Bashir Cleary on 03-22-2025 Cholesterol [Mass/Vol] 202 mg/dL High <201 [facility] Comment on above: Cholesterol level, D esirable <200 mg/dLBorderline high cholesterol 200-239 mg/dLHigh cholesterol >=240 mg/dLRecommendations of the NCEP Adult Treatment Panel for the following risk-cutoff thresholds for the [place] population. Serum or plasma urea nitroge n measurement (mass/volume)Ordered By: Bashir Evin on 03-22-2025 Urea nitrogen [Mass/Vol] 14 mg/dL 4-19 [facility] Sodium levelOrdered By: Alissa el Evin on 03-22-2025 Sodium [Moles/Vol] 138 mmol/L 133-145 [facility] Total proteinOrdered By: Sylvia jose Edgar on 03-22-2025 Protein [Mass/Vol] 7.2 g/dL 5.9-8.4 [facility] Triglycerides measurementOrd ered By: Bashir Cleary on 03-22-2025 Triglyceride [Mass/Vol] 127 mg/dL <199 [facility] Comment on above: The drugs N-Acetylcy steine and Metamizole may falsely depress this assay. Normal range: <150 mg/dLBorderline High: 150-199 mg/dLHigh: 200-499 mg/dLVery High: >500 mg/dL White blood cell (WBC) count Ordered By: Bashir Estrellagar on 03-22-2025 WBC (Bld) [#/Vol] 7.0 10*3/uL 4.4-11.0 [facility] OP NOTEon 11-23-2024 OP NOTE SOFYA CABRERA [facility] [id number] N [id number] 1955 DATE 11/23/2024 OPERATIVE REPORT SURGEON FACUNDO [...] perforated appendicitis. He was initially admitted at [facility] October 11 through October 17 with [...] the peritoneal cavity was obtained using the [employer] obturator. Abdomen was insufflated with carbon dioxide. [...] fluid collections that were evacuated using suction metal roofer. Lysis of adhesions was performed sharply as well as using blunt dissection with the suction metal roofer. When this was all completed, I was [...] closed using a 0 Vicryl in a [id number] fashion. All the remainder of the local anesthetic was injected. The surgical sites were then closed using skin iftikhar. Counts were correct x2 prior to completion of the procedure. He tolerated the procedure well without any apparent complications, able to be extubated, transferred to the recovery room in stable condition. FACUNDO WOODS MD D 11/23/2024 09:57 [id number] T 11/23/2024 10:33 REJI/ROXANAL cc: BASHIR CLEARY CNP AUTHENTICATED BY FACUNDO WOODS, ON 11/23/2024 11:12:06 Normal [facility] TISSUE EXAMon 11-23-2024 TISSUE EXAM Surgical Pathology Report Case: [id number] Authorizing Provider: Facundo Woods MD Collected: 11/23/2024 09:05 AM Ordering Location: [facility] Periop Received: 11/23/2024 10:12 AM Pathologist: Anjali [...] evidence of fecalith or tumor is identified. Technical Administrator sections are submitted in 2 cassettes as follows: Block 1 section of the distal tip and a section adjacent to iftikhar sales representative canvas products proximal margin. Block 2 random sections. TIM Gross examination performed at: [facility] - [address] [place] [address] Microscopic examination is performed. Normal [facility] Comment on above: Performed By: #### 4 [id number] ####[facility] [address] [id number] Abelino To M.D. [id number] BASIC METABOLIC PANELon 10-31 Anion gap [Moles/Vol] 14 mmol/L Normal 10-20 [facility] Comment on above: Order Comment: Injur y/Trauma or Illness?:Illness/Other How long have you had these symptoms (acute/chronic)?:Acute Reason for exam?:Known perforated appendix. Known prior abscess on imaging. No imaging available. Repeating to facilitate source control Type of Exam?:Initial Additional signs and symptoms?:order w AND w/o per provider Performed By: #### 4 6124 #### LAB [address] [address] Abelino To M.D. [id number] Calcium [Mass/Vol] 9.8 mg/dL Normal 8.4-10.2 [facility] Comment on above: Order Comment: Injur y/Trauma or Illness?:Illness/Other How long have you had these symptoms (acute/chronic)?:Acute Reason for exam?:Known perforated appendix. Known prior abscess on imaging. No imaging available. Repeating to facilitate source control Type of Exam?:Initial Additional signs and symptoms?:order w AND w/o per provider Performed By: #### 4 6124 ####[facility] [address] [address] Abelino To M.D. [id number] Chloride [Moles/Vol] 100 mmol/L Normal 98-108 [facility] Comment on above: Order Comment: Injur y/Trauma or Illness?:Illness/Other How long have you had these symptoms (acute/chronic)?:Acute Reason for exam?:Known perforated appendix. Known prior abscess on imaging. No imaging available. Repeating to facilitate source control Type of Exam?:Initial Additional signs and symptoms?:order w AND w/o per provider Performed By: #### 4 6124 #### [facility] [address] [address] Abelino To M.D. [id number] Creatinine [Mass/Vol] 0.92 mg/dL Normal 0.80-1.30 [facility] Comment on above: Order Comment: Injur y/Trauma or Illness?:Illness/Other How long have you had these symptoms (acute/chronic)?:Acute Reason for exam?:Known perforated appendix. Known prior abscess on imaging. No imaging available. Repeating to facilitate source control Type of Exam?:Initial Additional signs and symptoms?:order w AND w/o per provider Performed By: #### 4 6100 #### [facility] [address] [address] Abelino To M.D. [id number] EGFR 90 mL/min/1.73 m2 Normal >=60 [facility] Comment on above: Order Comment: Injur y/Trauma [...] By: #### 4 6124 #### [facility] [address] [address] Abelino To M.D. [id number] Glucose [Mass/Vol] 104 mg/dL High 65-99 [facility] Comment on above: Order Comment: Injur y/Trauma or Illness?:Illness/Other How long have you had these symptoms (acute/chronic)?:Acute Reason for exam?:Known perforated appendix. Known prior abscess on imaging. No imaging available. Repeating to facilitate source control Type of Exam?:Initial Additional signs and symptoms?:order w AND w/o per provider Performed By: #### 4 6124 #### [facility] [address] [address] Abelino To M.D. [id number] HCO3 (Bld) [Moles/Vol] 26 mmol/L Normal 21-32 [facility] Comment on above: Order Comment: Injur y/Trauma or Illness?:Illness/Other How long have you had these symptoms (acute/chronic)?:Acute Reason for exam?:Known perforated appendix. Known prior abscess on imaging. No imaging available. Repeating to facilitate source control Type of Exam?:Initial Additional signs and symptoms?:order w AND w/o per provider Performed By: #### 4 6124 #### LAB [address] [address] Abelino To M.D. [id number] Potassium [Moles/Vol] 4.2 mmol/L Normal 3.5-5.1 [facility] Comment on above: Order Comment: Injur y/Trauma or Illness?:Illness/Other How long have you had these symptoms (acute/chronic)?:Acute Reason for exam?:Known perforated appendix. Known prior abscess on imaging. No imaging available. Repeating to facilitate source control Type of Exam?:Initial Additional signs and symptoms?:order w AND w/o per provider Performed By: #### 4 6124 #### [facility] [address] [address] Abelino To M.D. [id number] Sodium [Moles/Vol] 136 mmol/L Normal 135-145 [facility] Comment on above: Order Comment: Injur y/Trauma or Illness?:Illness/Other How long have you had these symptoms (acute/chronic)?:Acute Reason for exam?:Known perforated appendix. Known prior abscess on imaging. No imaging available. Repeating to facilitate source control Type of Exam?:Initial Additional signs and symptoms?:order w AND w/o per provider Performed By: #### 4 6124 #### [facility] [address] [address] Abelino To M.D. [id number] Urea nitrogen [Mass/Vol] 13 mg/dL Normal 8-25 [facility] Comment on above: Order Comment: Injur y/Trauma or Illness?:Illness/Other How long have you had these symptoms (acute/chronic)?:Acute Reason for exam?:Known perforated appendix. Known prior abscess on imaging. No imaging available. Repeating to facilitate source control Type of Exam?:Initial Additional signs and symptoms?:order w AND w/o per provider Performed By: #### 4 6110 #### LAB [address] [address] Abelino To M.D. [id number] Urea nitrogen/Creatinine [Mass ratio] 14.1 mg/mg Normal 10.0-20.0 [facility] Comment on above: Order Comment: Injur y/Trauma or Illness?:Illness/Other How long have you had these symptoms (acute/chronic)?:Acute Reason for exam?:Known perforated appendix. Known prior abscess on imaging. No imaging available. Repeating to facilitate source control Type of Exam?:Initial Additional signs and symptoms?:order w AND w/o per provider Performed By: #### 4 6132 #### [facility] [address] [address] Abelino To M.D. [id number] BASIC METABOLIC PANELon 12-2 -2023 Anion gap [Moles/Vol] 16 mmol/L Normal 10-20 [facility] Comment on above: Order Comment: Injur y/Trauma or Illness?:Illness/Other How long have you had these symptoms (acute/chronic)?:Acute Reason for exam?:Known perforated appendix. Known prior abscess on imaging. No imaging available. Repeating to facilitate source control Type of Exam?:Initial Additional signs and symptoms?:order w AND w/o per provider Performed By: #### 4 6124 #### [facility] [address] [address] Abelino To M.D. [id number] Calcium [Mass/Vol] 8.7 mg/dL Normal 8.4-10.2 [facility] Comment on above: Order Comment: Injur y/Trauma or Illness?:Illness/Other How long have you had these symptoms (acute/chronic)?:Acute Reason for exam?:Known perforated appendix. Known prior abscess on imaging. No imaging available. Repeating to facilitate source control Type of Exam?:Initial Additional signs and symptoms?:order w AND w/o per provider Performed By: #### 4 6195 #### LAB [address] [address] Abelino To M.D. [id number] Chloride [Moles/Vol] 100 mmol/L Normal 98-108 [facility] Comment on above: Order Comment: Injur y/Trauma or Illness?:Illness/Other How long have you had these symptoms (acute/chronic)?:Acute Reason for exam?:Known perforated appendix. Known prior abscess on imaging. No imaging available. Repeating to facilitate source control Type of Exam?:Initial Additional signs and symptoms?:order w AND w/o per provider Performed By: #### 4 6124 #### [facility] [address] [address] Abelino To M.D. [id number] Creatinine [Mass/Vol] 1.24 mg/dL Normal 0.80-1.30 [facility] Comment on above: Order Comment: Injur y/Trauma or Illness?:Illness/Other How long have you had these symptoms (acute/chronic)?:Acute Reason for exam?:Known perforated appendix. Known prior abscess on imaging. No imaging available. Repeating to facilitate source control Type of Exam?:Initial Additional signs and symptoms?:order w AND w/o per provider Performed By: #### 4 6177 #### LAB [address] [address] Abelino To M.D. [id number] EGFR 63 mL/min/1.73 m2 Normal >=60 [facility] Comment on above: Order Comment: Injur y/Trauma [...] CKD-EPI creatinine equation. Performed By: #### 4 6127 #### [facility] [address] [address] Abelino To M.D. [id number] Glucose [Mass/Vol] 103 mg/dL High 65-99 [facility] Comment on above: Order Comment: Injur y/Trauma or Illness?:Illness/Other How long have you had these symptoms (acute/chronic)?:Acute Reason for exam?:Known perforated appendix. Known prior abscess on imaging. No imaging available. Repeating to facilitate source control Type of Exam?:Initial Additional signs and symptoms?:order w AND w/o per provider Performed By: #### 4 6153 #### [facility] [address] [address] Abelino To M.D. [id number] HCO3 (Bld) [Moles/Vol] 22 mmol/L Normal 21-32 [facility] Comment on above: Order Comment: Injur y/Trauma or Illness?:Illness/Other How long have you had these symptoms (acute/chronic)?:Acute Reason for exam?:Known perforated appendix. Known prior abscess on imaging. No imaging available. Repeating to facilitate source control Type of Exam?:Initial Additional signs and symptoms?:order w AND w/o per provider Performed By: #### 4 6124 ####[facility] [address] [address] Abelino To M.D. [id number] Potassium [Moles/Vol] 4.3 mmol/L Normal 3.5-5.1 [facility] Comment on above: Order Comment: Injur y/Trauma or Illness?:Illness/Other How long have you had these symptoms (acute/chronic)?:Acute Reason for exam?:Known perforated appendix. Known prior abscess on imaging. No imaging available. Repeating to facilitate source control Type of Exam?:Initial Additional signs and symptoms?:order w AND w/o per provider Performed By: #### 4 6182 ####[facility] [address] [address] Abelino To M.D. [id number] Sodium [Moles/Vol] 134 mmol/L Low 135-145 [facility] Comment on above: Order Comment: Injur y/Trauma or Illness?:Illness/Other How long have you had these symptoms (acute/chronic)?:Acute Reason for exam?:Known perforated appendix. Known prior abscess on imaging. No imaging available. Repeating to facilitate source control Type of Exam?:Initial Additional signs and symptoms?:order w AND w/o per provider Performed By: #### 4 6124 ####[facility] [address] [address] Abelino To M.D. [id number] Urea nitrogen [Mass/Vol] 19 mg/dL Normal 8-25 [facility] Comment on above: Order Comment: Injur y/Trauma or Illness?:Illness/Other How long have you had these symptoms (acute/chronic)?:Acute Reason for exam?:Known perforated appendix. Known prior abscess on imaging. No imaging available. Repeating to facilitate source control Type of Exam?:Initial Additional signs and symptoms?:order w AND w/o per provider Performed By: #### 4 6124 #### LAB [address] [place], [place] [address] Abelino To M.D. [id number] Urea nitrogen/Creatinine [Mass ratio] 15.3 mg/mg Normal 10.0-20.0 [facility] Comment on above: Order Comment: Injur y/Trauma or Illness?:Illness/Other How long have you had these symptoms (acute/chronic)?:Acute Reason for exam?:Known perforated appendix. Known prior abscess on imaging. No imaging available. Repeating to facilitate source control Type of Exam?:Initial Additional signs and symptoms?:order w AND w/o per provider Performed By: #### 4 6124 #### LAB [address] [place], [place] [address] Abelino To M.D. [id number] Basic metabolic 2000 panelon 10-19-2024 Anion gap [Moles/Vol] 16 mmol/L 10 - 2 0 mmol/L [facility] Calcium [Mass/Vol] 8.7 mg/dL 8.4 - 10. 2 mg/dL [facility] Chloride [Moles/Vol] 100 mmol/L 98 - 10 8 mmol/L [facility] Creatinine [Mass/Vol] 1.24 mg/dL 0.80 - 1.30 mg/dL [facility] GFR/1.73 sq M.predicted CKD-EPI (S/P/Bld) [Vol rate/Area] 63 - PINF [facility] Comment on above: Estimated GFR was ca lculated using the 2020 CKD-EPI creatinine equation. Glucose [Mass/Vol] 103 mg/dL High 65 - 99 mg/dL [facility] HCO3 [Moles/Vol] 22 mmol/L 21 - 32 mmol/L [facility] Interpretation and review of laboratory results Abnormal [facility] Potassium [Moles/Vol] 4.3 mmol/L 3.5 - 5.1 mmol/L [facility] Sodium [Moles/Vol] 134 mmol/L Low 135 - 145 mmol/L [facility] Urea nitrogen [Mass/Vol] 19 mg/dL 8 - 25 mg/dL [facility] Urea nitrogen/Creatinine [Mass ratio] 15.3 mg/mg 10.0 - 20.0 [facility] has implemented the eGFR calculation approach that does not have a coefficient for race that conforms to the NKF-ASN Task Force Recommendations. [facility] CBC Auto Differentialon 10-01 Erythrocyte distribution width (RBC) [Entitic vol] 12.4 % 11.6 - 14.8 % [facility] Hematocrit (Bld) [Volume fraction] 36.5 % Low 41.0 - 53.0 % [facility] Hemoglobin (Bld) [Mass/Vol] 11.8 g/dL Low 13.5 - 17.5 g/dL [facility] MCH (RBC) [Entitic mass] 32.1 pg 26.0 - 34.0 pg [facility] MCHC (RBC) [Mass/Vol] 32.3 g/dL 31.0 - 37.0 g/dL [facility] MCV (RBC) [Entitic vol] 99.2 fL 80.0 - 100.0 fL [facility] Nucleated RBC (Bld) [#/Vol] 0 10*3/uL [facility] Nucleated RBC/100 WBC (Bld) [Ratio] 0 % [facility] Platelet mean volume (Bld) [Entitic vol] 9.9 fL 9.4 - 12.4 fL [facility] Platelets (Bld) [#/Vol] 409 10*3/uL High [facility] RBC (Bld) [#/Vol] 3.68 10*6/uL Low [facility] WBC (Bld) [#/Vol] 17.11 10*3/uL [facility] CBC WITH AUTO DIFFERENTIALon 10-19-2024 AUTO NRBC 0.0 % Normal [facility] Comment on above: Performed By: #### L [id number] ####[facility] [address] [place], [place] [address] Abelino To M.D. [id number] AUTO NRBC ABS COUNT 0.00 K/mcL Normal 0.00-0.00 [facility] Comment on above: Performed By: #### L [id number] ####[facility] [address] [place], [place] [address] Abelino To M.D. [id number] Erythrocyte distribution width (RBC) [Ratio] 12.4 % Normal 11.6-14.8 [facility] Comment on above: Performed By: #### L [id number] #### LAB [address] [address] Abelino To M.D. [id number] Hematocrit (Bld) [Volume fraction] 36.5 % Low 41.0-53.0 [facility] Comment on above: Performed By: #### L [id number] #### LAB [address] [address] Abelino To M.D. [id number] Hemoglobin (Bld) [Mass/Vol] 11.8 g/dL Low 13.5-17.5 [facility] Comment on above: Performed By: #### L [id number] #### LAB [address] [address] Abelino To M.D. [id number] MCH (RBC) [Entitic mass] 32.1 pg Normal 26.0-34.0 [facility] Comment on above: Performed By: #### L [id number] #### LAB [address] [address] Abelino To M.D. [id number] MCV (RBC) [Entitic vol] 99.2 fL Normal 80.0-100.0 [facility] Comment on above: Performed By: #### L [id number] #### LAB [address] [address] Abelino To M.D. [id number] MEAN CORPUSCULAR HEMOGLOBIN CONC 32.3 g/dL Normal 31.0-37.0 [facility] Comment on above: Performed By: #### L [id number] ####[facility] [address] [address] Abelino To M.D. [id number] Platelet mean volume (Bld) [Entitic vol] 9.9 fL Normal 9.4-12.4 [facility] Comment on above: Performed By: #### L [id number] #### LAB [address] [address] Abelino To M.D. [id number] Platelets (Bld) [#/Vol] 409 10*3/uL High 150-400 [facility] Comment on above: Performed By: #### L [id number] ####[facility] [address] [place], [place] [address] Abelino To M.D. [id number] RBC (Bld) [#/Vol] 3.68 10*6/uL Low 4.50-5.90 [facility] Comment on above: Performed By: #### L [id number] ####[facility] [address] [id number] Abelino To M.D. [id number] WBC (Bld) [#/Vol] 17.11 10*3/uL High 4.50-11.00 [facility] Comment on above: Performed By: #### L [id number] #### LAB [address] [address] Abelino To M.D. [id number] CBC and Diff Morphologyon Platelets LM Ql (Bld) Normal Normal [facility] RBC morphology finding Nom (Bld) Normal [facility] Comment on above: RBC Indices confirme d with manual peripheral smear review. HEPATIC FUNCTION PANELon Albumin [Mass/Vol] 3.2 g/dL Normal 3.2-5.2 [facility] Comment on above: Performed By: #### 4 5866 ####[facility] [address] [address] Abelino To M.D. [id number] ALP [Catalytic activity/Vol] 57 U/L Normal 40-150 [facility] Comment on above: Performed By: #### 4 5866 ####[facility] [address] [id number] Abelino To M.D. [id number] ALT [Catalytic activity/Vol] 12 U/L Normal 0-50 U/L [facility] Comment on above: Performed By: #### 4 5866 ####[facility] [address] [place], [place] [address] Abelino oT M.D. [id number] AST [Catalytic activity/Vol] 17 U/L Normal 0-50 U/L [facility] Comment on above: Performed By: #### 4 5866 #### LAB [address] [place], [place] [address] Abelino To M.D. [id number] Bilirubin [Mass/Vol] 0.4 mg/dL Normal 0.0-1.3 [facility] Comment on above: Performed By: #### 4 5866 #### LAB [address] [place] [id number] Abelino To M.D. [id number] BILIRUBIN, DIRECT < Normal 0.0-0.4 [facility] Comment on above: Performed By: #### 4 5866 #### LAB [address] [id number] Abelino To M.D. [id number] Protein [Mass/Vol] 6.6 g/dL Normal 6.0-8.0 [facility] Comment on above: Performed By: #### 4 5866 #### LAB [address] [id number] Abelino To M.D. [id number] Hepatic function 2000 panelO rdered By: Gita Raman on 10-19-2024 Albumin [Mass/Vol] 3.2 g/dL 3.2 - 5.2 g/dL [facility] ALP [Catalytic activity/Vol] 57 U/L 40 - 150 U/L [facility] ALT [Catalytic activity/Vol] 12 U/L 0-50 U/L [facility] AST [Catalytic activity/Vol] 17 U/L 0-50 U/L [facility] Bilirubin [Mass/Vol] 0.4 mg/dL 0.0 - 1 .3 mg/dL [facility] Bilirubin.conjugated [Mass/Vol] mg/dL 0.0 - 0.4 mg/dL [facility] Interpretation and review of laboratory results Normal [facility] Protein [Mass/Vol] 6.6 g/dL 6.0 - 8.0 g/dL [facility] MAGNESIUM LEVELon 10-19-2024 Magnesium [Mass/Vol] 1.9 mg/dL Normal 1.6-2.4 [facility] Comment on above: Performed By: #### 4 6109 #### LAB [address] [address] Abelino To M.D. [id number] MANUAL DIFFERENTIALon 2023 BASOPHILS - ABS (DIFF) 0.00 K/mcL Normal 0.00-0.30 [facility] Comment on above: Performed By: #### 4 5456 #### LAB [address] [address] Abelino To M.D. [id number] BASOPHILS - REL (DIFF) 0.0 % Normal [facility] Comment on above: Performed By: #### 4 5456 #### LAB [address] [address] Abelino To M.D. [id number] EOSINOPHILS - ABS (DIFF) 0.15 K/mcL Normal 0.00-0.50 [facility] Comment on above: Performed By: #### 4 5456 #### LAB [address] [address] Abelino To M.D. [id number] EOSINOPHILS - REL (DIFF) 0.9 % [facility] Comment on above: Performed By: #### 4 5456 #### LAB [address] [place] [address] Abelino To M.D. [id number] LYMPHOCYTES - ABS (DIFF) 1.04 K/mcL Normal 0.90-4.00 [facility] Comment on above: Performed By: #### 4 5456 #### LAB [address] [place] [address] Abelino To M.D. [id number] LYMPHOCYTES - REL (DIFF) 6.1 % [facility] Comment on above: Performed By: #### 4 5456 #### LAB [address] [place] [address] Abelino To M.D. [id number] METAMYELOCYTES-REL (DIFF) 1.7 % [facility] Comment on above: Performed By: #### 4 5456 #### LAB [address] [place] [address] Abelino To M.D. [id number] MONOCYTES - ABS (DIFF) 0.44 K/mcL Normal 0.30-0.90 [facility] Comment on above: Performed By: #### 4 5456 ####[facility] [address] [address] Abelino To M.D. [id number] MONOCYTES - REL (DIFF) 2.6 % Normal [facility] Comment on above: Performed By: #### 4 5456 ####[facility] [address] [address] Abelino To M.D. [id number] NEUTROPHILS - ABS (DIFF) 15.47 K/mcL High 1.70-7.00 [facility] Comment on above: Performed By: #### 4 5456 #### LAB [address] [address] Abelino To M.D. [id number] NEUTROPHILS - REL (DIFF) 88.7 % Normal [facility] Comment on above: Performed By: #### 4 5456 #### LAB [address] [address] Abelino To M.D. [id number] MORPHOLOGYon 10-19-2024 PLATELET ESTIMATE Normal Normal Normal [facility] Comment on above: Performed By: #### L [id number] ####[facility] [address] [address] Abelino To M.D. [id number] RBC MORPH SCAN Normal Normal [facility] Comment on above: Result Comment: RBC Indices confirmed with manual peripheral smear review. Performed By: #### L [id number] ####[facility] [address] [address] Abelino To M.D. [id number] Magnesiumon 10-19-2024 Magnesium [Mass/Vol] 1.9 mg/dL 1.6 - 2 .4 mg/dL [facility] Manual Differential panel (B ld)on 10-19-2024 Basophils (Bld) [#/Vol] 0 10*3/uL [facility] Basophils/100 WBC (Bld) 0 % [facility] Eosinophils (Bld) [#/Vol] 0.15 10*3/uL [facility] Eosinophils/100 WBC (Bld) 0.9 % [facility] Lymphocytes (Bld) [#/Vol] 1.04 10*3/uL [facility] Lymphocytes/100 WBC (Bld) 6.1 % [facility] Metamyelocytes/100 WBC (Bld) 1.7 % [facility] Monocytes (Bld) [#/Vol] 0.44 10*3/uL [facility] Monocytes/100 WBC (Bld) 2.6 % [facility] Neutrophils (Bld) [#/Vol] 15.47 10*3/uL High [facility] Neutrophils/100 WBC (Bld) 88.7 % [facility] No Panel Informationon 10-19 Interpretation and review of laboratory results Abnormal [facility] Interpretation and review of laboratory results Normal [facility] PHOSPHORUSon 10-19-2024 Phosphate [Mass/Vol] 3.2 mg/dL Normal 2.3-3.7 [facility] Comment on above: Performed By: #### 4 6299 #### LAB [address] [place], [place] [address] Abelino To M.D. [id number] Phosphoruson 10-19-2024 Phosphate [Mass/Vol] 3.2 mg/dL 2.3 - 3 .7 mg/dL [facility] BASIC METABOLIC PANELon 09-30 Anion gap [Moles/Vol] 17 mmol/L Normal 08-19 [facility] Comment on above: Order Comment: Injur y/Trauma or Illness?:Illness/Other How long have you had these symptoms (acute/chronic)?:Acute Reason for exam?:Known perforated appendix. Known prior abscess on imaging. No imaging available. Repeating to facilitate source control Type of Exam?:Initial Additional signs and symptoms?:order w AND w/o per provider Performed By: #### 4 6153 #### LAB [address] [place], [place] [address] Abelino To M.D. [id number] Calcium [Mass/Vol] 8.8 mg/dL Normal 8.4-10.2 [facility] Comment on above: Order Comment: Injur y/Trauma or Illness?:Illness/Other How long have you had these symptoms (acute/chronic)?:Acute Reason for exam?:Known perforated appendix. Known prior abscess on imaging. No imaging available. Repeating to facilitate source control Type of Exam?:Initial Additional signs and symptoms?:order w AND w/o per provider Performed By: #### 4 6124 #### LAB [address] [address] Abelino To M.D. [id number] Chloride [Moles/Vol] 101 mmol/L Normal 98-108 [facility] Comment on above: Order Comment: Injur y/Trauma or Illness?:Illness/Other How long have you had these symptoms (acute/chronic)?:Acute Reason for exam?:Known perforated appendix. Known prior abscess on imaging. No imaging available. Repeating to facilitate source control Type of Exam?:Initial Additional signs and symptoms?:order w AND w/o per provider Performed By: #### 4 6124 #### LAB [address] [address] Abelino To M.D. [id number] Creatinine [Mass/Vol] 1.11 mg/dL Normal 0.80-1.30 [facility] Comment on above: Order Comment: Injur y/Trauma or Illness?:Illness/Other How long have you had these symptoms (acute/chronic)?:Acute Reason for exam?:Known perforated appendix. Known prior abscess on imaging. No imaging available. Repeating to facilitate source control Type of Exam?:Initial Additional signs and symptoms?:order w AND w/o per provider Performed By: #### 4 6124 #### LAB [address] [place] [address] Abelino To M.D. [id number] EGFR 72 mL/min/1.73 m2 Normal >=60 [facility] Comment on above: Order Comment: Injur y/Trauma [...] CKD-EPI creatinine equation. Performed By: #### 4 6192 #### LAB [address] [place] [address] Abelino To M.D. [id number] Glucose [Mass/Vol] 112 mg/dL High 65-99 [facility] Comment on above: Order Comment: Injur y/Trauma or Illness?:Illness/Other How long have you had these symptoms (acute/chronic)?:Acute Reason for exam?:Known perforated appendix. Known prior abscess on imaging. No imaging available. Repeating to facilitate source control Type of Exam?:Initial Additional signs and symptoms?:order w AND w/o per provider Performed By: #### 4 6183 ####[facility] [address] [address] Abelino To M.D. [id number] HCO3 (Bld) [Moles/Vol] 22 mmol/L Normal 21-32 [facility] Comment on above: Order Comment: Injur y/Trauma or Illness?:Illness/Other How long have you had these symptoms (acute/chronic)?:Acute Reason for exam?:Known perforated appendix. Known prior abscess on imaging. No imaging available. Repeating to facilitate source control Type of Exam?:Initial Additional signs and symptoms?:order w AND w/o per provider Performed By: #### 4 6153 ####[facility] [address] [address] Abelino To M.D. [id number] Potassium [Moles/Vol] 4.5 mmol/L Normal 3.5-5.1 [facility] Comment on above: Order Comment: Injur y/Trauma or Illness?:Illness/Other How long have you had these symptoms (acute/chronic)?:Acute Reason for exam?:Known perforated appendix. Known prior abscess on imaging. No imaging available. Repeating to facilitate source control Type of Exam?:Initial Additional signs and symptoms?:order w AND w/o per provider Performed By: #### 4 6188 ####[facility] [address] [id number] Abelino To M.D. [id number] Sodium [Moles/Vol] 135 mmol/L Normal 135-145 [facility] Comment on above: Order Comment: Injur y/Trauma or Illness?:Illness/Other How long have you had these symptoms (acute/chronic)?:Acute Reason for exam?:Known perforated appendix. Known prior abscess on imaging. No imaging available. Repeating to facilitate source control Type of Exam?:Initial Additional signs and symptoms?:order w AND w/o per provider Performed By: #### 4 6124 #### LAB [address] [address] Abelino To M.D. [id number] Urea nitrogen [Mass/Vol] 22 mg/dL Normal 8-25 [facility] Comment on above: Order Comment: Injur y/Trauma or Illness?:Illness/Other How long have you had these symptoms (acute/chronic)?:Acute Reason for exam?:Known perforated appendix. Known prior abscess on imaging. No imaging available. Repeating to facilitate source control Type of Exam?:Initial Additional signs and symptoms?:order w AND w/o per provider Performed By: #### 4 6169 #### LAB [address] [address] Abelino To M.D. [id number] Urea nitrogen/Creatinine [Mass ratio] 19.8 mg/mg Normal 10.0-20.0 [facility] Comment on above: Order Comment: Injur y/Trauma or Illness?:Illness/Other How long have you had these symptoms (acute/chronic)?:Acute Reason for exam?:Known perforated appendix. Known prior abscess on imaging. No imaging available. Repeating to facilitate source control Type of Exam?:Initial Additional signs and symptoms?:order w AND w/o per provider Performed By: #### 4 6144 #### LAB [address] [address] Abelino To M.D. [id number] BLOOD CULTURE AEROBIC/ANAERO Josue 10-18-2024 BLOOD CULTURE AEROBIC/ANAEROBIC BLOOD CULTURE No Growth after 5 days [facility] Comment on above: Performed By: #### 4 4018 #### [facility] [address] [place], [place] [address] Abelino To M.D. [id number] Performed By: #### 4 4014 #### LAB [address] [place], [place] [address] Abelino To M.D. [id number] BODY FLUID AEROBIC AND ANAER OBIC CULTUREon 10-18-2024 BODY FLUID AEROBIC AND ANAEROBIC CULTURE CULTURE No Growth after 5 days GRAM STAIN RESULT Many WBC Many RBC No Organisms Seen Normal [facility] Comment on above: Performed By: #### 4 4197 #### [facility] [place] [address] [place] M.D. [id number] Basic metabolic 2000 panelon 10-18-2024 Anion gap [Moles/Vol] 17 mmol/L 10 - 2 0 mmol/L [facility] Calcium [Mass/Vol] 8.8 mg/dL 8.4 - 10. 2 mg/dL [facility] Chloride [Moles/Vol] 101 mmol/L 98 - 10 8 mmol/L [facility] Creatinine [Mass/Vol] 1.11 mg/dL 0.80 - 1.30 mg/dL [facility] GFR/1.73 sq M.predicted CKD-EPI (S/P/Bld) [Vol rate/Area] 72 - PINF [facility] Comment on above: Estimated GFR was ca lculated using the 2020 CKD-EPI creatinine equation. Glucose [Mass/Vol] 112 mg/dL High 65 - 99 mg/dL [facility] HCO3 [Moles/Vol] 22 mmol/L 21 - 32 mmol/L [facility] Interpretation and review of laboratory results Abnormal [facility] Potassium [Moles/Vol] 4.5 mmol/L 3.5 - 5.1 mmol/L [facility] Sodium [Moles/Vol] 135 mmol/L 135 - 145 mmol/L [facility] Urea nitrogen [Mass/Vol] 22 mg/dL 8 - 25 mg/dL [facility] Urea nitrogen/Creatinine [Mass ratio] 19.8 mg/mg 10.0 - 20.0 [facility] has implemented the eGFR calculation approach that does not have a coefficient for race that conforms to the NKF-ASN Task Force Recommendations. [facility] CBC Auto Differentialon 09-30 Erythrocyte distribution width (RBC) [Entitic vol] 12.5 % 11.6 - 14.8 % [facility] Hematocrit (Bld) [Volume fraction] 35.2 % Low 41.0 - 53.0 % [facility] Hemoglobin (Bld) [Mass/Vol] 11.7 g/dL Low 13.5 - 17.5 g/dL [facility] MCH (RBC) [Entitic mass] 32.1 pg 26.0 - 34.0 pg [facility] MCHC (RBC) [Mass/Vol] 33.2 g/dL 31.0 - 37.0 g/dL [facility] MCV (RBC) [Entitic vol] 96.4 fL 80.0 - 100.0 fL [facility] Nucleated RBC (Bld) [#/Vol] 0 10*3/uL [facility] Nucleated RBC/100 WBC (Bld) [Ratio] 0 % [facility] Platelet mean volume (Bld) [Entitic vol] 9.8 fL 9.4 - 12.4 fL [facility] Platelets (Bld) [#/Vol] 325 10*3/uL [facility] RBC (Bld) [#/Vol] 3.65 10*6/uL [facility] WBC (Bld) [#/Vol] 15.98 10*3/uL [facility] CBC WITH AUTO DIFFERENTIALon 10-18-2024 AUTO NRBC 0.0 % Normal [facility] Comment on above: Performed By: #### L [id number] ####[facility] [address] [place], [place] [address] Abelino To M.D. [id number] AUTO NRBC ABS COUNT 0.00 K/mcL Normal 0.00-0.00 [facility] Comment on above: Performed By: #### L [id number] ####[facility] [address] [place], [place] [address] Abelino To M.D. [id number] Erythrocyte distribution width (RBC) [Ratio] 12.5 % Normal 11.6-14.8 [facility] Comment on above: Performed By: #### L [id number] #### LAB [address] [place], [place] [address] Abelino To M.D. [id number] Hematocrit (Bld) [Volume fraction] 35.2 % Low 41.0-53.0 [facility] Comment on above: Performed By: #### L [id number] #### LAB [address] [place] [address] Abelino To M.D. [id number] Hemoglobin (Bld) [Mass/Vol] 11.7 g/dL Low 13.5-17.5 [facility] Comment on above: Performed By: #### L [id number] #### LAB [address] [place] [address] Abelino To M.D. [id number] MCH (RBC) [Entitic mass] 32.1 pg Normal 26.0-34.0 [facility] Comment on above: Performed By: #### L [id number] #### LAB [address] [place] [address] Abelino To M.D. [id number] MCV (RBC) [Entitic vol] 96.4 fL Normal 80.0-100.0 [facility] Comment on above: Performed By: #### L [id number] #### LAB [address] [place] [address] Abelino To M.D. [id number] MEAN CORPUSCULAR HEMOGLOBIN CONC 33.2 g/dL Normal 31.0-37.0 [facility] Comment on above: Performed By: #### L [id number] #### LAB [address] [place] [address] Abelino To M.D. [id number] Platelet mean volume (Bld) [Entitic vol] 9.8 fL Normal 9.4-12.4 [facility] Comment on above: Performed By: #### L [id number] #### LAB [address] [address] Abelino To M.D. [id number] Platelets (Bld) [#/Vol] 325 10*3/uL Normal 150-400 [facility] Comment on above: Performed By: #### L [id number] #### LAB [address] [id number] Abelino To M.D. [id number] RBC (Bld) [#/Vol] 3.65 10*6/uL Low 4.50-5.90 [facility] Comment on above: Performed By: #### L [id number] ####[facility] LAB [address] [place], [place] [address] Abelino To M.D. [id number] WBC (Bld) [#/Vol] 15.98 10*3/uL High 4.50-11.00 [facility] Comment on above: Performed By: #### L [id number] ####[facility] LAB [address] [place], [place] [address] Abelino To M.D. [id number] CBC and Diff Morphologyon Platelets LM Ql (Bld) Normal Normal [facility] RBC morphology finding Nom (Bld) Normal [facility] Comment on above: RBC Indices confirme d with manual peripheral smear review. CONSULTon 10-18-2024 CONSULT Vascular & Interventional Radiology Provided By [facility] (Diagnostic Radiology, Interventional and Neurointerventional Radiology and Vascular Medicine) Interventional Radiology Department @ : [phone] CT Procedures @ : [phone] [place] Procedures @ : [phone] [facility] clinic @ : [phone] [email or web address] [facility] The consult was reviewed. The patient's [...] dilation, stone removal) Venous interventions: intrathoracic and MEMBERSHIP CORRESPONDENT intervention PT/INR < 1.5 - 1.8 (if [...] < 30-50mL/mi (more content not included)... Normal [facility] CONSULT - Attestation signed by De Rangel MD at 11/08/2024 8:52 PM I attest to José Antonio's evaluation, review medical record, radiological findings, and labs, I have discussed extensively with nurse practitioner management plan, and examination. Patient reevaluated today, was transferred from [facility] in [place], was found with perforated appendix, at that [...] Sofya Cabrera Admit Date: [id number] MR #: [id number] : 1955 Physicians: Bashir Cleary CNP (Family); Honey Shi MD (Referring) Chief complaint: Perforated appendix History: Sofya is a 68-year-old male with no pertinent medical history with us. He presented yesterday to the ER with history of perforated appendix about a week and a half ago. Patient initially was at the [facility] in [place] on Tuesday for right lower quadrant abdominal pain and was treated conservatively with IV antibiotics ciprofloxacin and Flagyl. He was transferred to [facility] yesterday for interventional radiologist evaluation and [...] 975 mg, 975 mg, Oral, Q8H PRN, Kalina, Erlinad Solano, DO, 975 mg at 10/18/24 0612 bisacodyL (DULCOLAX) suppository 10 mg, 10 mg, Rectal, Daily PRN, Erlinda Gilmanza, DO docusate sodium (COLACE) capsule 100 mg, 100 mg, Oral, Daily PRN, Kalina, Erlinda Fentonmukiza, DO lisinopriL (PRINIVIL,ZESTRIL) tablet 40 mg, 40 mg, Oral, Daily with lunch, Erlinda Gilman, DO magnesium sulfate 2 g in sterile water (SW) 50 mL IVPB, 2 g, Intravenous, Once, Lucila Foote, EULALIO melatonin Tab 5 mg, 5 mg, Oral, Nightly PRN, Erlinda Gilman Nisukhmuellisza, DO nitroGLYCERIN (NITROSTAT) SL tablet 0.4 mg, 0.4 mg, Sublingual, Q5 Min PRN, Erlinda Gilmanza, DO ondansetron (ZOFRAN-ODT) disintegrating tablet 4 mg, 4 mg, Oral, Q6H PRN OR ondansetron (ZOFRAN) injection 4 mg, 4 mg, Intravenous, Q6H PRN, Erlinda Gilman DO piperacillin-tazobact am (ZOSYN) IVPB 3.375 g (premix), 3.375 g, Intravenous, Q8H, Erlinda Gilman DO, Last Rate: 12.5 mL/hr at 10/17/24 2342, 3.375 g at 10/17/24 2342 senna (SENOKOT) tablet 8.6 mg, (more content not included)... Normal [facility] CONSULT - Attestation signed by Facundo Woods [...] year old male who was transferred from [facility] for perforated appendicitis. The patient was initially [...] than simple appendectomy. Will continue to follow. [facility] SURGICAL HISTORY & PHYSICAL/CONSULTATION [...] history of hypertension who initially presented to [facility] on 10/10/2024 with perforated appendicitis. He was treated conservatively with IV antibiotics. A follow-up CT was obtained on 10/17 that revealed a intra-abdominal abscess. He was then transferred to [facility] for higher care. He was admitted under the [facility] service, general surgery was consulted for evaluation. [...] for de (more content not included)... Normal [facility] CRP [Mass/Vol]on 10-18-2024 Interpretation and review of laboratory results Abnormal [facility] CRP, INFLAMMATIONon 10-18-20 24 CRP [Mass/Vol] 131.0 mg/L High 0.0-10.0 [facility] Comment on above: Performed By: #### 4 5334 ####[facility] LAB [address] [place], [place] [address] Abelino To M.D. [id number] CRP, Inflammationon 10-18-20 24 CRP [Mass/Vol] 131 mg/L High 0.0 - 10.0 mg/L [facility] CT Abdomen and Pelvis WO and W contrast Wisam 10-18-2024 1. Findings consistent with acute perforated appendicitis with multiple probable developing intraabdominal abscess is, the largest in the right paracolic gutter as described above. Overall, no significant change when compared with CT scan from outside facility yesterday. 2. Other incidental findings as above Workstation ID: [id number] [employer] [facility] EXAMINATION: CT ABDOMEN PELVIS WITH AND WITHOUT [...] No acute or aggressive osseous abnormality identified. [employer] [facility] Tyler Louis MD - 10/18/2024 EXAMINATION: CT [...] incidental findings as above Workstation ID: [id number] [facility] Radiology Study observation (narrative) CT Abdomen and Pelvis WO and W contrast IVOrdered By: Tyler Louis on 10-18-2024 [facility] Work Phone: CT Guidance for drainage of abscess and placement of drainage catheter of Peritoneal spaceon 10-18-[address]-guided 10 [place] right lower quadrant abscess drain placement. Workstation ID: [id number] [employer] EXAMINATION: ACT ABSCESS DRAINAGE PERITONEAL PROCEDURE: 1. [...] was removed. Following serial dilation, a 10 [place] Citizen M type pigtail drainage catheter was advanced [...] LOSS: Less than 5 mL COMPLICATIONS: None [facility] Mary Holliday MD - 10/18/2024 EXAMINATION: ACT [...] was removed. Following serial dilation, a 10 [place] M type pigtail drainage catheter was advanced [...] None IMPRESSION: 1. Technically successful CT-guided 10 [place] Citizen right lower quadrant abscess drain placement. Workstation ID: [id number] [facility] Radiology Study observation (narrative) [facility] Westergren method (Bld) [Velocity]on 10-18-2024 ESR (Bld) [Velocity] 103 mm/h High [facility] Interpretation and review of laboratory results Abnormal [facility] HEPATIC FUNCTION PANELon Albumin [Mass/Vol] 3.1 g/dL Low 3.2-5.2 [facility] Comment on above: Performed By: #### 4 4197 #### [facility] [address] [place] [address] Felix Park M.D. [id number] ALP [Catalytic activity/Vol] 56 U/L Normal 40-150 [facility] Comment on above: Performed By: #### 4 4197 #### [facility] [address] [place], [place] [address] Felix Park M.D. [id number] ALT [Catalytic activity/Vol] 19 U/L Normal 0-50 U/L [facility] Comment on above: Performed By: #### 4 4197 #### [facility] [address] [place], [place] [address] Felix Park M.D. [id number] AST [Catalytic activity/Vol] 19 U/L Normal 0-50 U/L [facility] Comment on above: Performed By: #### 4 4197 #### [facility] [address] [place], [place] [address] Felix Park M.D. [id number] Bilirubin [Mass/Vol] 0.4 mg/dL Normal 0.0-1.3 [facility] Comment on above: Performed By: #### 4 4197 #### [facility] [address] [place], [place] [address] Felix Park M.D. [id number] BILIRUBIN, DIRECT < Normal 0.0-0.4 [facility] Comment on above: Performed By: #### 4 4197 #### [facility] [address] [place], [place] [address] Felix Park M.D. [id number] Protein [Mass/Vol] 6.2 g/dL Normal 6.0-8.0 [facility] Comment on above: Performed By: #### 4 4197 #### [facility] [address] [place], [place] [address] Felix Park M.D. [id number] Hepatic function 2000 panelO rdered By: Honey Villanueva on 10-18-2024 Albumin [Mass/Vol] 3.1 g/dL Low 3.2 - 5.2 g/dL [facility] ALP [Catalytic activity/Vol] 56 U/L 40 - 150 U/L [facility] ALT [Catalytic activity/Vol] 19 U/L 0-50 U/L [facility] AST [Catalytic activity/Vol] 19 U/L 0-50 U/L [facility] Bilirubin [Mass/Vol] 0.4 mg/dL 0.0 - 1 .3 mg/dL [facility] Bilirubin.conjugated [Mass/Vol] mg/dL 0.0 - 0.4 mg/dL [facility] Interpretation and review of laboratory results Abnormal [facility] Protein [Mass/Vol] 6.2 g/dL 6.0 - 8.0 g/dL [facility] INR Coag (PPP) [Relative sergei e]on 10-18-2024 Interpretation and review of laboratory results Abnormal [facility] PT Coag (PPP) [Time] 16.1 s High [facility] During the induction phase of oral anticoagulation, the INR may not reflect the anticoagulation status of the patient. Therapeutic ranges for INR's are: Most clinical situations: INR 2.0-3.0 Mechanical Prosthetic Valve: INR 2.5-3.5 Critical: INR >5.0 [facility] MAGNESIUM LEVELon 10-18-2024 Magnesium [Mass/Vol] 1.6 mg/dL Normal 1.6-2.4 [facility] Comment on above: Performed By: #### 4 6109 #### LAB [address] [place], [place] [address] Abelino To M.D. [id number] MANUAL DIFFERENTIALon 2023 BASOPHILS - ABS (DIFF) 0.00 K/mcL Normal 0.00-0.30 [facility] Comment on above: Performed By: #### 4 5456 #### LAB [address] [address] Abelino To M.D. [id number] BASOPHILS - REL (DIFF) 0.0 % Normal [facility] Comment on above: Performed By: #### 4 5456 #### LAB [address] [address] Abelino To M.D. [id number] EOSINOPHILS - ABS (DIFF) 0.13 K/mcL Normal 0.00-0.50 [facility] Comment on above: Performed By: #### 4 5456 #### LAB [address] [address] Abelino To M.D. [id number] EOSINOPHILS - REL (DIFF) 0.8 % [facility] Comment on above: Performed By: #### 4 5456 #### LAB [address] [address] Abelino To M.D. [id number] LYMPHOCYTES - ABS (DIFF) 0.81 K/mcL Low 0.90-4.00 [facility] Comment on above: Performed By: #### 4 5456 #### LAB [address] [place] [address] Abelino To M.D. [id number] LYMPHOCYTES - REL (DIFF) 5.1 % [facility] Comment on above: Performed By: #### 4 0733 #### LAB [address] [address] Abelino To M.D. [id number] METAMYELOCYTES-REL (DIFF) 2.6 % [facility] Comment on above: Performed By: #### 4 0698 #### LAB [address] [place] [address] Abelino To M.D. [id number] MONOCYTES - ABS (DIFF) 1.23 K/mcL High 0.30-0.90 [facility] Comment on above: Performed By: #### 4 6526 #### LAB [address] [address] Abelino To M.D. [id number] MONOCYTES - REL (DIFF) 7.7 % Normal [facility] Comment on above: Performed By: #### 4 5456 #### LAB [address] [address] Abelino To M.D. [id number] MYELOCYTES RELATIVE PERCENT 4.3 % Normal [facility] Comment on above: Performed By: #### 4 5456 #### LAB [address] [address] Abelino To M.D. [id number] NEUTROPHILS - ABS (DIFF) 13.81 K/mcL High 1.70-7.00 [facility] Comment on above: Performed By: #### 4 5456 #### LAB [address] [address] Abelino To M.D. [id number] NEUTROPHILS - REL (DIFF) 79.5 % Normal [facility] Comment on above: Performed By: #### 4 5456 #### LAB [address] [address] Abelino To M.D. [id number] MORPHOLOGYon 10-18-2024 PLATELET ESTIMATE Normal Normal Normal [facility] Comment on above: Performed By: #### L AB295 #### LAB [address] [address] Abelino To M.D. [id number] RBC MORPH SCAN Normal Normal [facility] Comment on above: Result Comment: RBC Indices confirmed with manual peripheral smear review. Performed By: #### L AB295 #### LAB [address] [address] Abelino To M.D. [id number] Magnesiumon 10-18-2024 Magnesium [Mass/Vol] 1.6 mg/dL 1.6 - 2 .4 mg/dL [facility] Manual Differential panel (B ld)on 10-18-2024 Basophils (Bld) [#/Vol] 0 10*3/uL [facility] Basophils/100 WBC (Bld) 0 % [facility] Eosinophils (Bld) [#/Vol] 0.13 10*3/uL [facility] Eosinophils/100 WBC (Bld) 0.8 % [facility] Lymphocytes (Bld) [#/Vol] 0.81 10*3/uL Low [facility] Lymphocytes/100 WBC (Bld) 5.1 % [facility] Metamyelocytes/100 WBC (Bld) 2.6 % [facility] Monocytes (Bld) [#/Vol] 1.23 10*3/uL High [facility] Monocytes/100 WBC (Bld) 7.7 % [facility] Myelocytes/100 WBC (Bld) 4.3 % [facility] Neutrophils (Bld) [#/Vol] 13.81 10*3/uL High [facility] Neutrophils/100 WBC (Bld) 79.5 % [facility] No Panel Informationon 10-18 Interpretation and review of laboratory results Abnormal [facility] Interpretation and review of laboratory results Normal [facility] PHOSPHORUSon 10-18-2024 Phosphate [Mass/Vol] 3.7 mg/dL Normal 2.3-3.7 [facility] Comment on above: Performed By: #### 4 6299 ####[facility] LAB [address] [place], [place] [address] Abelino To M.D. [id number] PT/INRon 10-18-2024 INR Coag (PPP) [Relative time] 1.3 {INR} High 0.8 - 1.1 [facility] INR Coag (PPP) [Relative time] 1.3 {INR} High 0.8-1.1 [facility] Comment on above: Order Comment: Injur y/Trauma or Illness?:Illness/Other How long have you had these symptoms (acute/chronic)?:Acute Reason for exam?:Known perforated appendix. Known prior abscess on imaging. No imaging available. Repeating to facilitate source control Type of Exam?:Initial Additional signs and symptoms?:order w AND w/o per provider Performed By: #### 4 6391 #### LAB [address] [place], [place] [address] Abelino To M.D. [id number] PT Coag (PPP) [Time] 16.1 s High 11.8-14.3 [facility] Comment on above: Order Comment: Injur y/Trauma or Illness?:Illness/Other How long have you had these symptoms (acute/chronic)?:Acute Reason for exam?:Known perforated appendix. Known prior abscess on imaging. No imaging available. Repeating to facilitate source control Type of Exam?:Initial Additional signs and symptoms?:order w AND w/o per provider Performed By: #### 4 6391 #### LAB [address] [address] Abelino To M.D. [id number] Phosphoruson 10-18-2024 Phosphate [Mass/Vol] 3.7 mg/dL 2.3 - 3 .7 mg/dL [facility] SEDIMENTATION RATEon 024 SEDIMENTATION RATE, ERYTHROCYTE 103 mm/hr High 0-20 [facility] Comment on above: Performed By: #### 4 4197 #### [facility] [address] [place] [address] Felix Park M.D. [id number] BASIC METABOLIC PANELon 09-30 Anion gap [Moles/Vol] 17 mmol/L Normal 10-20 [facility] Comment on above: Order Comment: [facility] has implemented the eGFR calculation approach that does not have a coefficient for race that conforms to the NKF-ASN Task Force Recommendations. Performed By: #### 4 6124 #### LAB [address] [place], [place] [address] Abelino To M.D. [id number] Calcium [Mass/Vol] 9.4 mg/dL Normal 8.4-10.2 [facility] Comment on above: Order Comment: [facility] has implemented the eGFR calculation approach that does not have a coefficient for race that conforms to the NKF-ASN Task Force Recommendations. Performed By: #### 4 6124 ####[facility] LAB [address] [place], [place] [address] Abelino To M.D. [id number] Chloride [Moles/Vol] 99 mmol/L Normal 98-108 [facility] Comment on above: Order Comment: [facility] has implemented the eGFR calculation approach that does not have a coefficient for race that conforms to the NKF-ASN Task Force Recommendations. Performed By: #### 4 6124 #### LAB [address] [address] Abelino To M.D. [id number] Creatinine [Mass/Vol] 1.12 mg/dL Normal 0.80-1.30 [facility] Comment on above: Order Comment: [facility] has implemented the eGFR calculation approach that does not have a coefficient for race that conforms to the NKF-ASN Task Force Recommendations. Performed By: #### 4 6124 #### LAB [address] [address] Abelino To M.D. [id number] EGFR 71 mL/min/1.73 m2 Normal >=60 [facility] Comment on above: Order Comment: [facility] has implemented the eGFR calculation approach that does not have a coefficient for race that conforms to the NKF-ASN Task Force Recommendations. Result Comment: Jeremie mated GFR was calculated using the 2020 CKD-EPI creatinine equation. Performed By: #### 4 6124 #### LAB [address] [address] Abelino To M.D. [id number] Glucose [Mass/Vol] 111 mg/dL High 65-99 [facility] Comment on above: Order Comment: [facility] has implemented the eGFR calculation approach that does not have a coefficient for race that conforms to the NKF-ASN Task Force Recommendations. Performed By: #### 4 6124 #### LAB [address] [address] Abelino To M.D. [id number] HCO3 (Bld) [Moles/Vol] 24 mmol/L Normal 21-32 [facility] Comment on above: Order Comment: [facility] has implemented the eGFR calculation approach that does not have a coefficient for race that conforms to the NKF-ASN Task Force Recommendations. Performed By: #### 4 6124 #### LAB [address] [address] Abelino To M.D. [id number] Potassium [Moles/Vol] 4.3 mmol/L Normal 3.5-5.1 [facility] Comment on above: Order Comment: [facility] has implemented the eGFR calculation approach that does not have a coefficient for race that conforms to the NKF-ASN Task Force Recommendations. Performed By: #### 4 6124 #### LAB [address] [address] Abelino To M.D. [id number] Sodium [Moles/Vol] 136 mmol/L Normal 135-145 [facility] Comment on above: Order Comment: [facility] has implemented the eGFR calculation approach that does not have a coefficient for race that conforms to the NKF-ASN Task Force Recommendations. Performed By: #### 4 6124 #### LAB [address] [address] Abelino To M.D. [id number] Urea nitrogen [Mass/Vol] 25 mg/dL Normal 8-25 [facility] Comment on above: Order Comment: [facility] has implemented the eGFR calculation approach that does not have a coefficient for race that conforms to the NKF-ASN Task Force Recommendations. Performed By: #### 4 6124 #### LAB [address] [address] Abelino To M.D. [id number] Urea nitrogen/Creatinine [Mass ratio] 22.3 mg/mg High 10.0-20.0 [facility] Comment on above: Order Comment: [facility] has implemented the eGFR calculation approach that does not have a coefficient for race that conforms to the NKF-ASN Task Force Recommendations. Performed By: #### 4 6124 #### LAB [address] [address] Abelino To M.D. [id number] Basic metabolic 2000 panelon 10-17-2024 Anion gap [Moles/Vol] 17 mmol/L 10 - 2 0 mmol/L [facility] Calcium [Mass/Vol] 9.4 mg/dL 8.4 - 10. 2 mg/dL [facility] Chloride [Moles/Vol] 99 mmol/L 98 - 10 8 mmol/L [facility] Creatinine [Mass/Vol] 1.12 mg/dL 0.80 - 1.30 mg/dL [facility] GFR/1.73 sq M.predicted CKD-EPI (S/P/Bld) [Vol rate/Area] 71 - PINF [facility] Comment on above: Estimated GFR was ca lculated using the 2020 CKD-EPI creatinine equation. Glucose [Mass/Vol] 111 mg/dL High 65 - 99 mg/dL [facility] HCO3 [Moles/Vol] 24 mmol/L 21 - 32 mmol/L [facility] Potassium [Moles/Vol] 4.3 mmol/L 3.5 - 5.1 mmol/L [facility] Sodium [Moles/Vol] 136 mmol/L 135 - 145 mmol/L [facility] Urea nitrogen [Mass/Vol] 25 mg/dL 8 - 25 mg/dL [facility] Urea nitrogen/Creatinine [Mass ratio] 22.3 mg/mg High 10.0 - 20.0 [facility] has implemented the eGFR calculation approach that does not have a coefficient for race that conforms to the NKF-ASN Task Force Recommendations. [facility] Anion gap [Moles/Vol] 10 mmol/L 10 - 2 0 mmol/L [facility] Calcium [Mass/Vol] 8.5 mg/dL Low 8.6 - 10. 3 mg/dL [facility] Chloride [Moles/Vol] 104 mmol/L 98 - 10 7 mmol/L [facility] CO2 [Moles/Vol] 25 mmol/L 21 - 32 mmol/L [facility] Creatinine [Mass/Vol] 0.98 mg/dL 0.50 - 1.30 mg/dL [facility] GFR/1.73 sq M.predicted among non-blacks MDRD (S/P/Bld) [Vol rate/Area] 83 mL/min/{1.73_m2} - PINF [facility] Comment on above: Calculations of jeremie mated GFR are performed using the 2020 CKD-EPI Study Refit equation without the race variable for the IDMS-Traceable creatinine methods. https://jasn.asnjournals.org/content/early/ 529312 Glucose [Mass/Vol] 135 mg/dL High 74 - 99 mg/dL [facility] Interpretation and review of laboratory results Abnormal [facility] Potassium [Moles/Vol] 4 mmol/L 3.5 - 5.3 mmol/L [facility] Sodium [Moles/Vol] 135 mmol/L Low 136 - 145 mmol/L [facility] Urea nitrogen [Mass/Vol] 21 mg/dL 6 - 23 mg/dL [facility] Anion gap [Moles/Vol] 10 mmol/L Normal 10-20 [facility] Comment on above: Performed By: #### 3 040-3 #### SU SCHNEIDER ([id number]) [facility] ([facility]) [address] [place] [id number] Calcium [Mass/Vol] 8.5 mg/dL Low 8.6-10.3 [facility] Comment on above: Performed By: #### 3 040-3 #### SU SCHNEIDER ([id number]) [facility] ([facility]) [address] [place] [address] Chloride [Moles/Vol] 104 mmol/L Normal 98-107 [facility] Comment on above: Performed By: #### 3 040-3 #### SU SCHNEIDER ([id number]) [facility] ([facility]) [address] [place] [address] CO2 [Moles/Vol] 25 mmol/L Normal 21-32 [facility] Comment on above: Performed By: #### 3 040-3 #### SU SCHNEIDER ([id number]) [facility] ([facility]) [facility] [place] [address] Creatinine [Mass/Vol] 0.98 mg/dL Normal 0.50-1.30 [facility] Comment on above: Performed By: #### 3 040-3 #### SU SCHNEIDER ([id number]) [facility] ([facility]) [facility] [place] [address] Glomerular filtration rate/1.73 sq M.predicted 83 mL/min/1.73m*2 Normal >60 [facility] Comment on above: Result Comment: Calc ulations of estimated GFR are performed using the 2020 CKD-EPI Study Refit equation without the race variable for the IDMS-Traceable creatinine methods. https://jasn.asnjournals.org/content/early/ASN.2020 729119 Performed By: #### 3 040-3 #### SU SCHNEIDER ([id number]) [facility] ([facility]) [address] [place] [address] 21946 Glucose [Mass/Vol] 135 mg/dL High 74-99 [facility] Comment on above: Performed By: #### 3 040-3 #### SU SCHNEIDER ([id number]) [facility] ([facility]) [address] [place] [address] 56074 Potassium [Moles/Vol] 4.0 mmol/L Normal 3.5-5.3 [facility] Comment on above: Performed By: #### 3 040-3 #### SU SCHNEIDER ([id number]) [facility] ([facility]) [address] [place] [address] 91876 Sodium [Moles/Vol] 135 mmol/L Low 136-145 [facility] Comment on above: Performed By: #### 3 040-3 #### SU SCHNEIDER ([id number]) [facility] ([facility]) [address] [place] [address] 89894 Urea nitrogen [Mass/Vol] 21 mg/dL Normal 6-23 [facility] Comment on above: Performed By: #### 3 040-3 #### SU SCHNEIDER ([id number]) [facility] ([facility]) [address] [place] [address] 10053 CBC Auto Differentialon 09-30 Erythrocyte distribution width (RBC) [Entitic vol] 12.4 % 11.6 - 14.8 % [facility] Hematocrit (Bld) [Volume fraction] 37.7 % Low 41.0 - 53.0 % [facility] Hemoglobin (Bld) [Mass/Vol] 12.5 g/dL Low 13.5 - 17.5 g/dL [facility] MCH (RBC) [Entitic mass] 31.8 pg 26.0 - 34.0 pg [facility] MCHC (RBC) [Mass/Vol] 33.2 g/dL 31.0 - 37.0 g/dL [facility] MCV (RBC) [Entitic vol] 95.9 fL 80.0 - 100.0 fL [facility] Nucleated RBC (Bld) [#/Vol] 0 10*3/uL [facility] Nucleated RBC/100 WBC (Bld) [Ratio] 0 % [facility] Platelet mean volume (Bld) [Entitic vol] 9.9 fL 9.4 - 12.4 fL [facility] Platelets (Bld) [#/Vol] 359 10*3/uL [facility] RBC (Bld) [#/Vol] 3.93 10*6/uL Low [facility] WBC (Bld) [#/Vol] 17.72 10*3/uL [facility] CBC WITH AUTO DIFFERENTIALon 10-17-2024 AUTO NRBC 0.0 % Normal [facility] Comment on above: Performed By: #### L [id number] #### LAB [address] [address] Abelino To M.D. [id number] AUTO NRBC ABS COUNT 0.00 K/mcL Normal 0.00-0.00 [facility] Comment on above: Performed By: #### L [id number] ####[facility] [address] [address] Abelino To M.D. [id number] Erythrocyte distribution width (RBC) [Ratio] 12.4 % Normal 11.6-14.8 [facility] Comment on above: Performed By: #### L [id number] #### LAB [address] [address] Abelino To M.D. [id number] Hematocrit (Bld) [Volume fraction] 37.7 % Low 41.0-53.0 [facility] Comment on above: Performed By: #### L [id number] #### LAB [address] [address] Abelino To M.D. [id number] Hemoglobin (Bld) [Mass/Vol] 12.5 g/dL Low 13.5-17.5 [facility] Comment on above: Performed By: #### L [id number] #### LAB [address] [address] Abelino To M.D. [id number] MCH (RBC) [Entitic mass] 31.8 pg Normal 26.0-34.0 [facility] Comment on above: Performed By: #### L [id number] ####[facility] [address] [address] Abelino To M.D. [id number] MCV (RBC) [Entitic vol] 95.9 fL Normal 80.0-100.0 [facility] Comment on above: Performed By: #### L [id number] #### LAB [address] [place] [address] Abelino To M.D. [id number] MEAN CORPUSCULAR HEMOGLOBIN CONC 33.2 g/dL Normal 31.0-37.0 [facility] Comment on above: Performed By: #### L [id number] #### LAB [address] [address] Abelino To M.D. [id number] Platelet mean volume (Bld) [Entitic vol] 9.9 fL Normal 9.4-12.4 [facility] Comment on above: Performed By: #### L [id number] #### LAB [address] [address] Abelino To M.D. [id number] Platelets (Bld) [#/Vol] 359 10*3/uL Normal 150-400 [facility] Comment on above: Performed By: #### L [id number] #### LAB [address] [address] Abelino To M.D. [id number] RBC (Bld) [#/Vol] 3.93 10*6/uL Low 4.50-5.90 [facility] Comment on above: Performed By: #### L [id number] #### LAB [address] [place], [place] [address] Abelino To M.D. [id number] WBC (Bld) [#/Vol] 17.72 10*3/uL High 4.50-11.00 [facility] Comment on above: Performed By: #### L [id number] ####[facility] [address] [place], [place] [address] Abelino To M.D. [id number] CBC and Diff Morphologyon Platelets LM Ql (Bld) Normal Normal [facility] RBC morphology finding Nom (Bld) Normal [facility] Comment on above: RBC Indices confirme d with manual peripheral smear review. CBC panel Auto (Bld)on 10-17 Erythrocyte distribution width (RBC) [Ratio] 12.3 % 11.5 - 14.5 % [facility] Hematocrit (Bld) [Volume fraction] 34.2 % Low 41.0 - 52.0 % [facility] Hemoglobin (Bld) [Mass/Vol] 11.3 g/dL Low 13.5 - 17.5 g/dL [facility] Interpretation and review of laboratory results Abnormal [facility] MCH (RBC) [Entitic mass] 32 pg 26.0 - 34.0 pg [facility] MCHC (RBC) [Mass/Vol] 33 g/dL 32.0 - 36.0 g/dL [facility] MCV (RBC) [Entitic vol] 97 fL 80 - 100 fL [facility] Nucleated RBC/100 WBC (Bld) [Ratio] 0 % [facility] Platelets (Bld) [#/Vol] 275 10*3/uL [facility] RBC (Bld) [#/Vol] 3.53 10*6/uL Low [facility] WBC (Bld) [#/Vol] 16 10*3/uL High [facility] Erythrocyte distribution width (RBC) [Ratio] 12.3 % Normal 11.5-14.5 [facility] Comment on above: Performed By: #### 3 040-3 #### SU SCHNEIDER ([id number]) [facility] ([facility]) [address] [place] [address] 50054 Hematocrit (Bld) [Volume fraction] 34.2 % Low 41.0-52.0 [facility] Comment on above: Performed By: #### 3 040-3 #### SU SCHNEIDER ([id number]) [facility] ([facility]) [address] [place] [address] 12565 Hemoglobin (Bld) [Mass/Vol] 11.3 g/dL Low 13.5-17.5 [facility] Comment on above: Performed By: #### 3 040-3 #### SU SCHNEIDER ([id number]) [facility] ([facility]) [address] [place] [address] 84372 MCH (RBC) [Entitic mass] 32.0 pg Normal 26.0-34.0 [facility] Comment on above: Performed By: #### 3 040-3 #### SU SCHNEIDER ([id number]) [facility] ([facility]) [address] [place] [address] 45635 MCHC (RBC) [Mass/Vol] 33.0 g/dL Normal 32.0-36.0 [facility] Comment on above: Performed By: #### 3 040-3 #### SU SCHNEIDER ([id number]) [facility] ([facility]) [address] [place] [address] 12082 MCV (RBC) [Entitic vol] 97 fL Normal 80-100 [facility] Comment on above: Performed By: #### 3 040-3 #### SU SCHNEIDER ([id number]) [facility] ([facility]) [address] [place] [address] 59888 Nucleated RBC/100 WBC (Bld) [Ratio] 0.0 /100 WBCs Normal 0.0-0.0 [facility] Comment on above: Performed By: #### 3 040-3 #### SU SCHNEIDER ([id number]) [facility] ([facility]) [address] [place] [address] 48690 Platelets (Bld) [#/Vol] 275 x10*3/uL Normal 150-450 [facility] Comment on above: Performed By: #### 3 040-3 #### SU SCHNEIDER ([id number]) [facility] ([facility]) [address] [place] [address] 38399 RBC (Bld) [#/Vol] 3.53 x10*6/uL Low 4.50-5.90 [facility] Comment on above: Performed By: #### 3 040-3 #### SU SCHNEIDER ([id number]) [facility] ([facility]) [address] [place] [address] WBC (Bld) [#/Vol] 16.0 x10*3/uL High 4.4-11.3 [facility] Comment on above: Performed By: #### 3 040-3 #### SU SCHNEIDER ([id number]) [facility] ([facility]) [address] [place] [address] 01955 CRP, INFLAMMATIONon 10-17-20 24 CRP [Mass/Vol] 151.0 mg/L High 0.0-10.0 [facility] Comment on above: Performed By: #### 4 5334 #### LAB [address] [place], [place] [address] Abelino To M.D. [id number] CRP, Inflammationon 10-17-20 24 CRP [Mass/Vol] 151 mg/L High 0.0 - 10.0 mg/L [facility] CT ABDOMEN PELVIS WITH AND W ITHOUT [...] ID: [id number] Dictated by: TYLER LOUIS on TueOct 18, 2024 8:44:25 AM EST Transcribed by: TYLER LOUIS on TueOct 18, 2024 8:44:25 AM EST Finalized by: TYLER LOUIS on TueOct 18, 2024 8:44:25 AM EST Normal [facility] Comment on above: Order Comment: Injur y/Trauma or Illness?:Illness/Other How long have you had these symptoms (acute/chronic)?:Acute Reason for exam?:Known perforated appendix. Known prior abscess on imaging. No imaging available. Repeating to facilitate source control Type of Exam?:Initial Additional signs and symptoms?:order w AND w/o per provider CT ABDOMEN PELVIS WO IV CONT Gladis 10-17-2024 CT ABDOMEN PELVIS WO IV CONTRAST Interpreted By: Fran Sebastian, STUDY: CT ABDOMEN PELVIS WO IV CONTRAST; 10/17/2024 2:05 pm INDICATION: Signs/Symptoms:perfor ated appendicitis r/o abscess. oral contrast. COMPARISON: CT 10/11/2024 ACCESSION NUMBER(S): [id number] ORDERING CLINICIAN: HONEY SHI TECHNIQUE: CT of [...] Fran Sebastian 10/17/2024 8:35 PM Dictation workstation: [id number] [facility] Comment on above: Order Comment: Venip uncture immediately after or during the administration of Metamizole may lead to falsely low results. Testing should be performed immediately prior to Metamizole dosing. ESR Westergren method (Bld) [Velocity]on 10-17-2024 ESR (Bld) [Velocity] 55 mm/h [facility] Interpretation and review of laboratory results Abnormal [facility] HEPATIC FUNCTION PANELon Albumin [Mass/Vol] 3.4 g/dL Normal 3.2-5.2 [facility] Comment on above: Performed By: #### 4 5866 #### LAB [address] [address] Abelino To M.D. [id number] ALP [Catalytic activity/Vol] 65 U/L Normal 40-150 [facility] Comment on above: Performed By: #### 4 5866 ####[facility] [address] [address] Abelino To M.D. [id number] ALT [Catalytic activity/Vol] 20 U/L Normal 0-50 U/L [facility] Comment on above: Performed By: #### 4 5866 #### LAB [address] [address] Abelino To M.D. [id number] AST [Catalytic activity/Vol] 24 U/L Normal 0-50 U/L [facility] Comment on above: Performed By: #### 4 5866 #### LAB [address] [address] Abelino To M.D. [id number] Bilirubin [Mass/Vol] 0.3 mg/dL Normal 0.0-1.3 [facility] Comment on above: Performed By: #### 4 5866 #### LAB [address] [address] Abelino To M.D. [id number] BILIRUBIN, DIRECT < Normal 0.0-0.4 [facility] Comment on above: Performed By: #### 4 5866 #### LAB [address] [id number] Abelino To M.D. [id number] Protein [Mass/Vol] 6.9 g/dL Normal 6.0-8.0 [facility] Comment on above: Performed By: #### 4 5866 #### LAB [address] [address] Abelino To M.D. [id number] Hepatic function 2000 panelO rdered By: Kristina Hernandez on 10-17-2024 Albumin [Mass/Vol] 3.4 g/dL 3.2 - 5.2 g/dL [facility] ALP [Catalytic activity/Vol] 65 U/L 40 - 150 U/L [facility] ALT [Catalytic activity/Vol] 20 U/L 0-50 U/L [facility] AST [Catalytic activity/Vol] 24 U/L 0-50 U/L [facility] Bilirubin [Mass/Vol] 0.3 mg/dL 0.0 - 1 .3 mg/dL [facility] Bilirubin.conjugated [Mass/Vol] mg/dL 0.0 - 0.4 mg/dL [facility] Interpretation and review of laboratory results Normal [facility] Protein [Mass/Vol] 6.9 g/dL 6.0 - 8.0 g/dL [facility] MAGNESIUM LEVELon 10-17-2024 Magnesium [Mass/Vol] 1.6 mg/dL Normal 1.6-2.4 [facility] Comment on above: Performed By: #### 4 6109 #### LAB [address] [address] Abelino To M.D. [id number] MANUAL DIFFERENTIALon 2023 BASOPHILS - ABS (DIFF) 0.16 K/mcL Normal 0.00-0.30 [facility] Comment on above: Performed By: #### 4 5456 #### LAB [address] [address] Abelino To M.D. [id number] BASOPHILS - REL (DIFF) 0.9 % Normal [facility] Comment on above: Performed By: #### 4 5456 #### LAB [address] [address] Abelino To M.D. [id number] EOSINOPHILS - ABS (DIFF) 0.14 K/mcL Normal 0.00-0.50 [facility] Comment on above: Performed By: #### 4 5456 #### LAB [address] [address] Abelino To M.D. [id number] EOSINOPHILS - REL (DIFF) 0.8 % [facility] Comment on above: Performed By: #### 4 5456 #### LAB [address] [address] Abelino To M.D. [id number] LYMPHOCYTES - ABS (DIFF) 1.51 K/mcL Normal 0.90-4.00 [facility] Comment on above: Performed By: #### 4 5456 #### LAB [address] [address] Abelino To M.D. [id number] LYMPHOCYTES - REL (DIFF) 8.5 % [facility] Comment on above: Performed By: #### 4 5500 #### LAB [address] [address] Abelino To M.D. [id number] MONOCYTES - ABS (DIFF) 1.36 K/mcL High 0.30-0.90 [facility] Comment on above: Performed By: #### 4 8795 #### LAB [address] [address] Abelino To M.D. [id number] MONOCYTES - REL (DIFF) 7.7 % Normal [facility] Comment on above: Performed By: #### 4 1702 #### LAB [address] [address] Abelino To M.D. [id number] MYELOCYTES RELATIVE PERCENT 0.9 % [facility] Comment on above: Performed By: #### 4 4682 #### LAB [address] [place], [place] [address] Abelino To M.D. [id number] NEUTROPHILS - ABS (DIFF) 14.55 K/mcL High 1.70-7.00 [facility] Comment on above: Performed By: #### 4 5456 #### LAB [address] [place], [place] [address] Abelino To M.D. [id number] NEUTROPHILS - REL (DIFF) 81.2 % Normal [facility] Comment on above: Performed By: #### 4 5456 ####[facility] LAB [address] [place], [place] [address] Abelino To M.D. [id number] MORPHOLOGYon 10-17-2024 PLATELET ESTIMATE Normal Normal Normal [facility] Comment on above: Performed By: #### L [id number] #### LAB [address] [place], [place] [address] Abelino To M.D. [id number] RBC MORPH SCAN Normal Normal [facility] Comment on above: Result Comment: RBC Indices confirmed with manual peripheral smear review. Performed By: #### L AB295 #### LAB [address] [id number] Abelino To M.D. [id number] Magnesiumon 10-17-2024 Magnesium [Mass/Vol] 1.6 mg/dL 1.6 - 2 .4 mg/dL [facility] Manual Differential panel (B ld)on 10-17-2024 Basophils (Bld) [#/Vol] 0.16 10*3/uL [facility] Basophils/100 WBC (Bld) 0.9 % [facility] Eosinophils (Bld) [#/Vol] 0.14 10*3/uL [facility] Eosinophils/100 WBC (Bld) 0.8 % [facility] Lymphocytes (Bld) [#/Vol] 1.51 10*3/uL [facility] Lymphocytes/100 WBC (Bld) 8.5 % [facility] Monocytes (Bld) [#/Vol] 1.36 10*3/uL High [facility] Monocytes/100 WBC (Bld) 7.7 % [facility] Myelocytes/100 WBC (Bld) 0.9 % [facility] Neutrophils (Bld) [#/Vol] 14.55 10*3/uL High [facility] Neutrophils/100 WBC (Bld) 81.2 % [facility] No Panel Informationon 10-17 Interpretation and review of laboratory results Abnormal [facility] Interpretation and review of laboratory results Abnormal [facility] Interpretation and review of laboratory results Normal [facility] PHOSPHORUSon 10-17-2024 Phosphate [Mass/Vol] 3.7 mg/dL Normal 2.3-3.7 [facility] Comment on above: Performed By: #### 4 6299 #### LAB [address] [place], [place] [address] Abelino To M.D. [id number] PROCALCITONINon 10-17-2024 PROCALCITONIN 0.47 ng/ml Normal <0.50 [facility] Comment on above: Order Comment: Resul ts <0.50 ng/ml represent a low risk of severe sepsis and/or septic shock. Performed By: #### 4 4197 #### [facility] [address] [place], [place] [address] Felix Park M.D. [id number] Phosphoruson 10-17-2024 Phosphate [Mass/Vol] 3.7 mg/dL 2.3 - 3 .7 mg/dL [facility] Procalcitoninon 10-17-2024 Procalcitonin [Mass/Vol] 0.47 ng/mL NINF - 0.50 ng/ml [facility] Procalcitonin [Mass/Vol]on 12-18-2023 Interpretation and review of laboratory results Normal [facility] Results <0.50 ng/ml represent a low risk of severe sepsis and/or septic shock. [facility] SEDIMENTATION RATEon 024 SEDIMENTATION RATE, ERYTHROCYTE 55 mm/hr High 0-20 [facility] Comment on above: Performed By: #### 4 4197 #### [facility] [address] [place], [place] [address] Felix Park M.D. [id number] Basic metabolic 2000 panelon 10-16-2024 Anion gap [Moles/Vol] 13 mmol/L 10 - 2 0 mmol/L [facility] Calcium [Mass/Vol] 8.7 mg/dL 8.6 - 10. 3 mg/dL [facility] Chloride [Moles/Vol] 103 mmol/L 98 - 10 7 mmol/L [facility] CO2 [Moles/Vol] 25 mmol/L 21 - 32 mmol/L [facility] Creatinine [Mass/Vol] 1.2 mg/dL 0.50 - 1.30 mg/dL [facility] GFR/1.73 sq M.predicted among non-blacks MDRD (S/P/Bld) [Vol rate/Area] 65 mL/min/{1.73_m2} - PINF [facility] Comment on above: Calculations of jeremie mated GFR are performed using the 2020 CKD-EPI Study Refit equation without the race variable for the IDMS-Traceable creatinine methods. https://jasn.asnjournals.org/content/early/ASN.2020 334564 Glucose [Mass/Vol] 115 mg/dL High 74 - 99 mg/dL [facility] Interpretation and review of laboratory results Abnormal [facility] Potassium [Moles/Vol] 4 mmol/L 3.5 - 5.3 mmol/L [facility] Sodium [Moles/Vol] 137 mmol/L 136 - 145 mmol/L [facility] Urea nitrogen [Mass/Vol] 20 mg/dL 6 - 23 mg/dL [facility] Anion gap [Moles/Vol] 13 mmol/L Normal 10-20 [facility] Comment on above: Performed By: #### 2 4323-8 #### SU SCHNEIDER ([id number]) [facility] ([facility]) [address] [place] [address] Calcium [Mass/Vol] 8.7 mg/dL Normal 8.6-10.3 [facility] Comment on above: Performed By: #### 2 4323-8 #### SU SCHNEIDER ([id number]) [facility] ([facility]) [address] [place] [address] Chloride [Moles/Vol] 103 mmol/L Normal 98-107 [facility] Comment on above: Performed By: #### 2 4323-8 #### SU SCHNEIDER ([id number]) [facility] ([facility]) [facility] [place] [address] CO2 [Moles/Vol] 25 mmol/L Normal 21-32 [facility] Comment on above: Performed By: #### 2 4323-8 #### SU SCHNEIDER ([id number]) [facility] ([facility]) [address] [place] [address] 56870 Creatinine [Mass/Vol] 1.20 mg/dL Normal 0.50-1.30 [facility] Comment on above: Performed By: #### 2 4323-8 #### SU SCHNEIDER ([id number]) [facility] ([facility]) [address] [place] [address] 53946 Glomerular filtration rate/1.73 sq M.predicted 65 mL/min/1.73m*2 Normal >60 [facility] Comment on above: Result Comment: Calc ulations of estimated GFR are performed using the 2020 CKD-EPI Study Refit equation without the race variable for the IDMS-Traceable creatinine methods. https://jasn.asnjournals.org/content/early//ASN.2020 574460 Performed By: #### 2 4323-8 #### SU SCHNEIDER ([id number]) [facility] ([facility]) [address] [place] [address] 728[address] Glucose [Mass/Vol] 115 mg/dL High 74-99 [facility] Comment on above: Performed By: #### 2 4323-8 #### SU SCHNEIDER ([id number]) [facility] ([facility]) [address] [place] [address] 00412 Potassium [Moles/Vol] 4.0 mmol/L Normal 3.5-5.3 [facility] Comment on above: Performed By: #### 2 4323-8 #### SU SCHNEIDER ([id number]) [facility] ([facility]) [address] [place] [address] 36765 Sodium [Moles/Vol] 137 mmol/L Normal 136-145 [facility] Comment on above: Performed By: #### 2 4323-8 #### SU SCHNEIDER ([id number]) [facility] ([facility]) [address] [place] [address] Urea nitrogen [Mass/Vol] 20 mg/dL Normal 6-23 [facility] Comment on above: Performed By: #### 2 4323-8 #### SU SCHNEIDER ([id number]) [facility] ([facility]) [address] [place] [address] CBC panel Auto (Bld)on 10-16 Erythrocyte distribution width (RBC) [Ratio] 12.2 % 11.5 - 14.5 % [facility] Hematocrit (Bld) [Volume fraction] 35.5 % Low 41.0 - 52.0 % [facility] Hemoglobin (Bld) [Mass/Vol] 11.9 g/dL Low 13.5 - 17.5 g/dL [facility] Interpretation and review of laboratory results Abnormal [facility] MCH (RBC) [Entitic mass] 32.1 pg 26.0 - 34.0 pg [facility] MCHC (RBC) [Mass/Vol] 33.5 g/dL 32.0 - 36.0 g/dL [facility] MCV (RBC) [Entitic vol] 96 fL 80 - 100 fL [facility] Nucleated RBC/100 WBC (Bld) [Ratio] 0 % [facility] Platelets (Bld) [#/Vol] 248 10*3/uL [facility] RBC (Bld) [#/Vol] 3.71 10*6/uL Low [facility] WBC (Bld) [#/Vol] 14.1 10*3/uL High [facility] Erythrocyte distribution width (RBC) [Ratio] 12.2 % Normal 11.5-14.5 [facility] Comment on above: Performed By: #### 2 4323-8 #### SU SCHNEIDER ([id number]) [facility] ([facility]) [address] [place] [address] Hematocrit (Bld) [Volume fraction] 35.5 % Low 41.0-52.0 [facility] Comment on above: Performed By: #### 2 4323-8 #### SU SCHNEIDER ([id number]) [facility] ([facility]) [address] [place] [address] Hemoglobin (Bld) [Mass/Vol] 11.9 g/dL Low 13.5-17.5 [facility] Comment on above: Performed By: #### 2 4322-8 #### SU SCHNEIDER ([id number]) [facility] ([facility]) [address] [place] [address] 47565 MCH (RBC) [Entitic mass] 32.1 pg Normal 26.0-34.0 [facility] Comment on above: Performed By: #### 2 432-8 #### SU SCHNEIDER ([id number]) [facility] ([facility]) [address] [place] [address] 51518 MCHC (RBC) [Mass/Vol] 33.5 g/dL Normal 32.0-36.0 [facility] Comment on above: Performed By: #### 2 432-8 #### SU SCHNEIDER ([id number]) [facility] ([facility]) [address] [place] [address] 40363 MCV (RBC) [Entitic vol] 96 fL Normal 80-100 [facility] Comment on above: Performed By: #### 2 432-8 #### SU SCHNEIDER ([id number]) [facility] ([facility]) [address] [place] [address] 34526 Nucleated RBC/100 WBC (Bld) [Ratio] 0.0 /100 WBCs Normal 0.0-0.0 [facility] Comment on above: Performed By: #### 2 432-8 #### SU SCHNEIDER ([id number]) [facility] ([facility]) [address] [place] [address] 32210 Platelets (Bld) [#/Vol] 248 x10*3/uL Normal 150-450 [facility] Comment on above: Performed By: #### 2 4323-8 #### SU SCHNEIDER ([id number]) [facility] ([facility]) [facility] [place] [address] RBC (Bld) [#/Vol] 3.71 x10*6/uL Low 4.50-5.90 [facility] Comment on above: Performed By: #### 2 4323-8 #### SU SCHNEIDER ([id number]) [facility] ([facility]) [facility] [place] [address] WBC (Bld) [#/Vol] 14.1 x10*3/uL High 4.4-11.3 [facility] Comment on above: Performed By: #### 2 4323-8 #### SU SCHNEIDER ([id number]) [facility] ([facility]) [facility] [place] [address] Basic metabolic 2000 panelon 10-15-2024 Anion gap [Moles/Vol] 12 mmol/L 10 - 2 0 mmol/L [facility] Calcium [Mass/Vol] 8.8 mg/dL 8.6 - 10. 3 mg/dL [facility] Chloride [Moles/Vol] 103 mmol/L 98 - 10 7 mmol/L [facility] CO2 [Moles/Vol] 25 mmol/L 21 - 32 mmol/L [facility] Creatinine [Mass/Vol] 1.15 mg/dL 0.50 - 1.30 mg/dL [facility] GFR/1.73 sq M.predicted among non-blacks MDRD (S/P/Bld) [Vol rate/Area] 69 mL/min/{1.73_m2} - PINF [facility] Comment on above: Calculations of jeremie mated GFR are performed using the 2020 CKD-EPI Study Refit equation without the race variable for the IDMS-Traceable creatinine methods. https://jasn.asnjournals.org/content//ASN.2020 058995 Glucose [Mass/Vol] 118 mg/dL High 74 - 99 mg/dL [facility] Interpretation and review of laboratory results Abnormal [facility] Potassium [Moles/Vol] 3.7 mmol/L 3.5 - 5.3 mmol/L [facility] Sodium [Moles/Vol] 136 mmol/L 136 - 145 mmol/L [facility] Urea nitrogen [Mass/Vol] 19 mg/dL 6 - 23 mg/dL [facility] Anion gap [Moles/Vol] 12 mmol/L Normal 10-20 [facility] Comment on above: Performed By: #### 2 4323-8 #### SU SCHNEIDER ([id number]) [facility] ([facility]) [address] [place] [address] 12750 Calcium [Mass/Vol] 8.8 mg/dL Normal 8.6-10.3 [facility] Comment on above: Performed By: #### 2 4322-8 #### SU SCHNEIDER ([id number]) [facility] ([facility]) [address] [place] [address] 93647 Chloride [Moles/Vol] 103 mmol/L Normal 98-107 [facility] Comment on above: Performed By: #### 2 4322-8 #### SU SCHNEIDER ([id number]) [facility] ([facility]) [address] [place] [address] 19434 CO2 [Moles/Vol] 25 mmol/L Normal 21-32 [facility] Comment on above: Performed By: #### 2 4323-8 #### SU SCHNEIDER ([id number]) [facility] ([facility]) [address] [place] [address] 44896 Creatinine [Mass/Vol] 1.15 mg/dL Normal 0.50-1.30 [facility] Comment on above: Performed By: #### 2 3-8 #### SU SCHNEIDER ([id number]) [facility] ([facility]) [address] [place] [address] 67836 Glomerular filtration rate/1.73 sq M.predicted 69 mL/min/1.73m*2 Normal >60 [facility] Comment on above: Result Comment: Calc ulations of estimated GFR are performed using the 2020 CKD-EPI Study Refit equation without the race variable for the IDMS-Traceable creatinine methods. https://jasn.asnjournals.org/content//ASN.2020 259808 Performed By: #### 2 4323-8 #### SU SCHNEIDER ([id number]) [facility] ([facility]) [address] [place] [address] 98865 Glucose [Mass/Vol] 118 mg/dL High 74-99 [facility] Comment on above: Performed By: #### 2 4323-8 #### SU SCHNEIDER ([id number]) [facility] ([facility]) [address] [place] [address] 69604 Potassium [Moles/Vol] 3.7 mmol/L Normal 3.5-5.3 [facility] Comment on above: Performed By: #### 2 4323-8 #### SU SCHNEIDER ([id number]) [facility] ([facility]) [address] [place] [address] 19890 Sodium [Moles/Vol] 136 mmol/L Normal 136-145 [facility] Comment on above: Performed By: #### 2 4323-8 #### SU SCHNEIDER ([id number]) [facility] ([facility]) [address] [place] [address] 65307 Urea nitrogen [Mass/Vol] 19 mg/dL Normal 6-23 [facility] Comment on above: Performed By: #### 2 4323-8 #### SU SCHNEIDER ([id number]) [facility] ([facility]) [address] [place] [address] 35268 CBC panel Auto (Bld)on 10-15 Erythrocyte distribution width (RBC) [Ratio] 12 % 11.5 - 14.5 % [facility] Hematocrit (Bld) [Volume fraction] 35.7 % Low 41.0 - 52.0 % [facility] Hemoglobin (Bld) [Mass/Vol] 11.9 g/dL Low 13.5 - 17.5 g/dL [facility] Interpretation and review of laboratory results Abnormal [facility] MCH (RBC) [Entitic mass] 32 pg 26.0 - 34.0 pg [facility] MCHC (RBC) [Mass/Vol] 33.3 g/dL 32.0 - 36.0 g/dL [facility] MCV (RBC) [Entitic vol] 96 fL 80 - 100 fL [facility] Nucleated RBC/100 WBC (Bld) [Ratio] 0 % [facility] Platelets (Bld) [#/Vol] 237 10*3/uL [facility] RBC (Bld) [#/Vol] 3.72 10*6/uL Low [facility] WBC (Bld) [#/Vol] 12.9 10*3/uL High [facility] Erythrocyte distribution width (RBC) [Ratio] 12.0 % Normal 11.5-14.5 [facility] Comment on above: Performed By: #### 2 4323-8 #### SU SCHNEIDER ([id number]) [facility] ([facility]) [address] [place] [address] Hematocrit (Bld) [Volume fraction] 35.7 % Low 41.0-52.0 [facility] Comment on above: Performed By: #### 2 4323-8 #### SU SCHNEIDER ([id number]) [facility] ([facility]) [address] [place] [address] 15327 Hemoglobin (Bld) [Mass/Vol] 11.9 g/dL Low 13.5-17.5 [facility] Comment on above: Performed By: #### 2 4323-8 #### SU SCHNEIDER ([id number]) [facility] ([facility]) [address] [place] [address] 91624 MCH (RBC) [Entitic mass] 32.0 pg Normal 26.0-34.0 [facility] Comment on above: Performed By: #### 2 4323-8 #### SU SCHNEIDER ([id number]) [facility] ([facility]) [address] [place] [address] 22771 MCHC (RBC) [Mass/Vol] 33.3 g/dL Normal 32.0-36.0 [facility] Comment on above: Performed By: #### 2 4323-8 #### SU SCHNEIDER ([id number]) [facility] ([facility]) [address] [place] [address] 75897 MCV (RBC) [Entitic vol] 96 fL Normal 80-100 [facility] Comment on above: Performed By: #### 2 432-8 #### SU SCHNEIDER ([id number]) [facility] ([facility]) [address] [place] [address] 08827 Nucleated RBC/100 WBC (Bld) [Ratio] 0.0 /100 WBCs Normal 0.0-0.0 [facility] Comment on above: Performed By: #### 2 4323-8 #### SU SCHNEIDER ([id number]) [facility] ([facility]) [address] [place] [address] 47409 Platelets (Bld) [#/Vol] 237 x10*3/uL Normal 150-450 [facility] Comment on above: Performed By: #### 2 4323-8 #### SU SCHNEIDER ([id number]) [facility] ([facility]) [address] [place] [address] 24978 RBC (Bld) [#/Vol] 3.72 x10*6/uL Low 4.50-5.90 [facility] Comment on above: Performed By: #### 2 4323-8 #### SU SCHNEIDER ([id number]) [facility] ([facility]) [address] [place] [address] 41307 WBC (Bld) [#/Vol] 12.9 x10*3/uL High 4.4-11.3 [facility] Comment on above: Performed By: #### 2 4323-8 #### SU SCHNEIDER ([id number]) [facility] ([facility]) [address] [place] [address] 04989 Magnesiumon 10-15-2024 Magnesium [Mass/Vol] 1.61 mg/dL 1.60 - 2.40 mg/dL [facility] Magnesium [Mass/Vol] 1.61 mg/dL Normal 1.60-2.40 [facility] Comment on above: Performed By: #### 2 4323-8 #### BLUE WYATT ([id number]) [facility] ([facility]) [address] [place] [address] Magnesium [Mass/Vol]on 10-15 Interpretation and review of laboratory results Normal [facility] Bacteria identified Cx Nom ( U)Ordered By: Juan Camarena on 10-14-2024 Interpretation and review of laboratory results Normal [facility] Basic metabolic 2000 panelon 10-14-2024 Anion gap [Moles/Vol] 13 mmol/L 10 - 2 0 mmol/L [facility] Calcium [Mass/Vol] 9.2 mg/dL 8.6 - 10. 3 mg/dL [facility] Chloride [Moles/Vol] 102 mmol/L 98 - 10 7 mmol/L [facility] CO2 [Moles/Vol] 25 mmol/L 21 - 32 mmol/L [facility] Creatinine [Mass/Vol] 1.21 mg/dL 0.50 - 1.30 mg/dL [facility] GFR/1.73 sq M.predicted among non-blacks MDRD (S/P/Bld) [Vol rate/Area] 65 mL/min/{1.73_m2} - PINF [facility] Comment on above: Calculations of jeremie mated GFR are performed using the 2020 CKD-EPI Study Refit equation without the race variable for the IDMS-Traceable creatinine methods. https://jasn.asnjournals.org/content/early//ASN.2020 926752 Glucose [Mass/Vol] 118 mg/dL High 74 - 99 mg/dL [facility] Interpretation and review of laboratory results Abnormal [facility] Potassium [Moles/Vol] 4.2 mmol/L 3.5 - 5.3 mmol/L [facility] Sodium [Moles/Vol] 136 mmol/L 136 - 145 mmol/L [facility] Urea nitrogen [Mass/Vol] 22 mg/dL 6 - 23 mg/dL [facility] Anion gap [Moles/Vol] 13 mmol/L Normal 10-20 [facility] Comment on above: Performed By: #### 2 4323-8 #### SU SCHNEIDER ([id number]) [facility] ([facility]) [address] [place] [address] Calcium [Mass/Vol] 9.2 mg/dL Normal 8.6-10.3 [facility] Comment on above: Performed By: #### 2 4323-8 #### SU SCHNEIDER ([id number]) [facility] ([facility]) [address] [place] [address] Chloride [Moles/Vol] 102 mmol/L Normal 98-107 [facility] Comment on above: Performed By: #### 2 4323-8 #### SU SCHNEIDER ([id number]) [facility] ([facility]) [facility] [place] [address] CO2 [Moles/Vol] 25 mmol/L Normal 21-32 [facility] Comment on above: Performed By: #### 2 4323-8 #### SU SCHNEIDER ([id number]) [facility] ([facility]) [facility] [place] [address] Creatinine [Mass/Vol] 1.21 mg/dL Normal 0.50-1.30 [facility] Comment on above: Performed By: #### 2 4323-8 #### SU SCHNEIDER ([id number]) [facility] ([facility]) [address] [place] [address] 08968 Glomerular filtration rate/1.73 sq M.predicted 65 mL/min/1.73m*2 Normal >60 [facility] Comment on above: Result Comment: Calc ulations of estimated GFR are performed using the 2020 CKD-EPI Study Refit equation without the race variable for the IDMS-Traceable creatinine methods. https://jasn.asnjournals.org/content//ASN.2020 649420 Performed By: #### 2 4323-8 #### SU SCHNEIDER ([id number]) [facility] ([facility]) [facility] [place] [address] Glucose [Mass/Vol] 118 mg/dL High 74-99 [facility] Comment on above: Performed By: #### 2 4323-8 #### SU SCHNEIDER ([id number]) [facility] ([facility]) [address] [place] [address] 24120 Potassium [Moles/Vol] 4.2 mmol/L Normal 3.5-5.3 [facility] Comment on above: Performed By: #### 2 4323-8 #### SU SCHNEIDER ([id number]) [facility] ([facility]) [address] [place] [address] 63671 Sodium [Moles/Vol] 136 mmol/L Normal 136-145 [facility] Comment on above: Performed By: #### 2 4323-8 #### SU SCHNEIDER ([id number]) [facility] ([facility]) [address] [place] [address] 19956 Urea nitrogen [Mass/Vol] 22 mg/dL Normal 6-23 [facility] Comment on above: Performed By: #### 2 4323-8 #### SU SCHNEIDER ([id number]) [facility] ([facility]) [address] [place] [address] 26490 Anion gap [Moles/Vol] 12 mmol/L 10 - 2 0 mmol/L [facility] Calcium [Mass/Vol] 8.4 mg/dL Low 8.6 - 10. 3 mg/dL [facility] Chloride [Moles/Vol] 103 mmol/L 98 - 10 7 mmol/L [facility] CO2 [Moles/Vol] 22 mmol/L 21 - 32 mmol/L [facility] Creatinine [Mass/Vol] 1.29 mg/dL 0.50 - 1.30 mg/dL [facility] Comment on above: Reviewed with previo us results GFR/1.73 sq M.predicted among non-blacks MDRD (S/P/Bld) [Vol rate/Area] 60 mL/min/{1.73_m2} Low - PINF [facility] Comment on above: Calculations of jeremie mated GFR are performed using the 2020 CKD-EPI Study Refit equation without the race variable for the IDMS-Traceable creatinine methods. https://jasn.asnjournals.org/content/early/ASN.2020 847958 Glucose [Mass/Vol] 93 mg/dL 74 - 99 mg/dL [facility] Interpretation and review of laboratory results Abnormal [facility] Potassium [Moles/Vol] 3.3 mmol/L Low 3.5 - 5.3 mmol/L [facility] Sodium [Moles/Vol] 134 mmol/L Low 136 - 145 mmol/L [facility] Urea nitrogen [Mass/Vol] 27 mg/dL High 6 - 23 mg/dL [facility] Anion gap [Moles/Vol] 12 mmol/L Normal 10-20 [facility] Comment on above: Performed By: #### 2 4323-8 #### SU SCHNEIDER ([id number]) [facility] ([facility]) [address] [place] [address] Calcium [Mass/Vol] 8.4 mg/dL Low 8.6-10.3 [facility] Comment on above: Performed By: #### 2 4323-8 #### SU SCHNEIDER ([id number]) [facility] ([facility]) [address] [place] [address] Chloride [Moles/Vol] 103 mmol/L Normal 98-107 [facility] Comment on above: Performed By: #### 2 4323-8 #### SU SCHNEIDER ([id number]) [facility] ([facility]) [address] [place] [address] CO2 [Moles/Vol] 22 mmol/L Normal 21-32 [facility] Comment on above: Performed By: #### 2 4323-8 #### SU SCHNEIDER ([id number]) [facility] ([facility]) [address] [place] [address] Creatinine [Mass/Vol] 1.29 mg/dL Normal 0.50-1.30 [facility] Comment on above: Result Comment: Revi ewed with previous results Performed By: #### 2 4323-8 #### SU SCHNEIDER ([id number]) [facility] ([facility]) [address] [place] [address] 85105 Glomerular filtration rate/1.73 sq M.predicted 60 mL/min/1.73m*2 Low >60 [facility] Comment on above: Result Comment: Calc ulations of estimated GFR are performed using the 2020 CKD-EPI Study Refit equation without the race variable for the IDMS-Traceable creatinine methods. https://jasn.asnjournals.org/content/early//ASN.2020 535233 Performed By: #### 2 4323-8 #### SU SCHNEIDER ([id number]) [facility] ([facility]) [address] [place] [address] 54606 Glucose [Mass/Vol] 93 mg/dL Normal 74-99 [facility] Comment on above: Performed By: #### 2 432-8 #### SU SCHNEIDER ([id number]) [facility] ([facility]) [address] [place] [address] 97969 Potassium [Moles/Vol] 3.3 mmol/L Low 3.5-5.3 [facility] Comment on above: Performed By: #### 2 4323-8 #### SU SCHNEIDER ([id number]) [facility] ([facility]) [address] [place] [address] 62125 Sodium [Moles/Vol] 134 mmol/L Low 136-145 [facility] Comment on above: Performed By: #### 2 4323-8 #### SU SCHNEIDER ([id number]) [facility] ([facility]) [address] [place] [address] 58962 Urea nitrogen [Mass/Vol] 27 mg/dL High 6-23 [facility] Comment on above: Performed By: #### 2 4323-8 #### SU SCHNEIDER ([id number]) [facility] ([facility]) [address] [place] [address] 55033 CBC panel Auto (Bld)on 10-14 Erythrocyte distribution width (RBC) [Ratio] 11.9 % 11.5 - 14.5 % [facility] Hematocrit (Bld) [Volume fraction] 36 % Low 41.0 - 52.0 % [facility] Hemoglobin (Bld) [Mass/Vol] 12.3 g/dL Low 13.5 - 17.5 g/dL [facility] Interpretation and review of laboratory results Abnormal [facility] MCH (RBC) [Entitic mass] 32.7 pg 26.0 - 34.0 pg [facility] MCHC (RBC) [Mass/Vol] 34.2 g/dL 32.0 - 36.0 g/dL [facility] MCV (RBC) [Entitic vol] 96 fL 80 - 100 fL [facility] Nucleated RBC/100 WBC (Bld) [Ratio] 0 % [facility] Platelets (Bld) [#/Vol] 236 10*3/uL [facility] RBC (Bld) [#/Vol] 3.76 10*6/uL Low [facility] WBC (Bld) [#/Vol] 17.3 10*3/uL High Unive [facility] Erythrocyte distribution width (RBC) [Ratio] 11.9 % Normal 11.5-14.5 [facility] Comment on above: Performed By: #### 2 4323-8 #### [place] SCHNEIDER ([id number]) [facility] ([facility]) [address] [place] [address] 51853 Hematocrit (Bld) [Volume fraction] 36.0 % Low 41.0-52.0 [facility] Comment on above: Performed By: #### 2 4323-8 #### SU SCHNEIDER ([id number]) [facility] ([facility]) [address] [place] [address] 38638 Hemoglobin (Bld) [Mass/Vol] 12.3 g/dL Low 13.5-17.5 [facility] Comment on above: Performed By: #### 2 4323-8 #### SU SCHNEIDER ([id number]) [facility] ([facility]) [address] [place] [address] 39676 MCH (RBC) [Entitic mass] 32.7 pg Normal 26.0-34.0 [facility] Comment on above: Performed By: #### 2 4323-8 #### SU SCHNEIDER ([id number]) [facility] ([facility]) [address] [place] [address] 89871 MCHC (RBC) [Mass/Vol] 34.2 g/dL Normal 32.0-36.0 [facility] Comment on above: Performed By: #### 2 432-8 #### SU SCHNEIDER ([id number]) [facility] ([facility]) [address] [place] [address] MCV (RBC) [Entitic vol] 96 fL Normal 80-100 [facility] Comment on above: Performed By: #### 2 432-8 #### SU SCHNEIDER ([id number]) [facility] ([facility]) [address] [place] [address] 86465 Nucleated RBC/100 WBC (Bld) [Ratio] 0.0 /100 WBCs Normal 0.0-0.0 [facility] Comment on above: Performed By: #### 2 4323-8 #### SU SCHNEIDER ([id number]) [facility] ([facility]) [address] [place] [address] 82846 Platelets (Bld) [#/Vol] 236 x10*3/uL Normal 150-450 [facility] Comment on above: Performed By: #### 2 432-8 #### SU SCHNEIDER ([id number]) [facility] ([facility]) [address] [place] [address] 51573 RBC (Bld) [#/Vol] 3.76 x10*6/uL Low 4.50-5.90 [facility] Comment on above: Performed By: #### 2 432-8 #### SU SCHNEIDER ([id number]) [facility] ([facility]) [address] [place] [address] 45534 WBC (Bld) [#/Vol] 17.3 x10*3/uL High 4.4-11.3 [facility] Comment on above: Performed By: #### 2 4323-8 #### SU SCHNEIDER ([id number]) [facility] ([facility]) [address] [place] [address] Erythrocyte distribution width (RBC) [Ratio] 11.9 % 11.5 - 14.5 % [facility] Hematocrit (Bld) [Volume fraction] 31 % Low 41.0 - 52.0 % [facility] Hemoglobin (Bld) [Mass/Vol] 10.7 g/dL Low 13.5 - 17.5 g/dL [facility] Interpretation and review of laboratory results Abnormal [facility] MCH (RBC) [Entitic mass] 32.7 pg 26.0 - 34.0 pg [facility] MCHC (RBC) [Mass/Vol] 34.5 g/dL 32.0 - 36.0 g/dL [facility] MCV (RBC) [Entitic vol] 95 fL 80 - 100 fL [facility] Nucleated RBC/100 WBC (Bld) [Ratio] 0 % [facility] Platelets (Bld) [#/Vol] 197 10*3/uL [facility] RBC (Bld) [#/Vol] 3.27 10*6/uL Low [facility] WBC (Bld) [#/Vol] 17.3 10*3/uL High [facility] Erythrocyte distribution width (RBC) [Ratio] 11.9 % Normal 11.5-14.5 [facility] Comment on above: Performed By: #### 2 524-7 #### SU SCHNEIDER ([id number]) [facility] ([facility]) [address] [place] [address] 58353 Hematocrit (Bld) [Volume fraction] 31.0 % Low 41.0-52.0 [facility] Comment on above: Performed By: #### 2 524-7 #### SU SCHNEIDER ([id number]) [facility] ([facility]) [address] [place] [address] 93248 Hemoglobin (Bld) [Mass/Vol] 10.7 g/dL Low 13.5-17.5 [facility] Comment on above: Performed By: #### 2 524-7 #### SU SCHNEIDER ([id number]) [facility] ([facility]) [address] [place] [address] 68599 MCH (RBC) [Entitic mass] 32.7 pg Normal 26.0-34.0 [facility] Comment on above: Performed By: #### 2 524-7 #### SU SCHNEIDER ([id number]) [facility] ([facility]) [address] [place] [address] 94704 MCHC (RBC) [Mass/Vol] 34.5 g/dL Normal 32.0-36.0 [facility] Comment on above: Performed By: #### 2 524-7 #### SU SCHNEIDER ([id number]) [facility] ([facility]) [address] [place] [address] 01251 MCV (RBC) [Entitic vol] 95 fL Normal 80-100 [facility] Comment on above: Performed By: #### 2 524-7 #### SU SCHNEIDER ([id number]) [facility] ([facility]) [address] [place] [address] 45721 Nucleated RBC/100 WBC (Bld) [Ratio] 0.0 /100 WBCs Normal 0.0-0.0 [facility] Comment on above: Performed By: #### 2 524-7 #### SU SCHNEIDER ([id number]) [facility] ([facility]) [address] [place] [address] 15251 Platelets (Bld) [#/Vol] 197 x10*3/uL Normal 150-450 [facility] Comment on above: Performed By: #### 2 524-7 #### SU SCHNEIDER ([id number]) [facility] ([facility]) [address] [place] [address] [id number] RBC (Bld) [#/Vol] 3.27 x10*6/uL Low 4.50-5.90 [facility] Comment on above: Performed By: #### 2 524-7 #### SU SCHNEIDER ([id number]) [facility] ([facility]) [facility] [place] [address] WBC (Bld) [#/Vol] 17.3 x10*3/uL High 4.4-11.3 [facility] Comment on above: Performed By: #### 2 524-7 #### SU SCHNEIDER ([id number]) [facility] ([facility]) [address] [place] [address] Magnesiumon 10-14-2024 Magnesium [Mass/Vol] 1.42 mg/dL Low 1.60 - 2.40 mg/dL [facility] Magnesium [Mass/Vol] 1.42 mg/dL Low 1.60-2.40 [facility] Comment on above: Performed By: #### 2 4323-8 #### SU SCHNEIDER ([id number]) [facility] ([facility]) [address] [place] [address] [phone] Magnesium [Mass/Vol]on 10-14 Interpretation and review of laboratory results Abnormal [facility] Urine CultureOrdered By: Nahun Camarena on 10-14-2024 Bacteria identified Cx Nom (U) No growth [facility] Basic metabolic 2000 panelon 10-13-2024 Anion gap [Moles/Vol] 13 mmol/L 10 - 2 0 mmol/L [facility] Calcium [Mass/Vol] 8.1 mg/dL Low 8.6 - 10. 3 mg/dL [facility] Chloride [Moles/Vol] 102 mmol/L 98 - 10 7 mmol/L [facility] CO2 [Moles/Vol] 24 mmol/L 21 - 32 mmol/L [facility] Creatinine [Mass/Vol] 2.39 mg/dL High 0.50 - 1.30 mg/dL [facility] Comment on above: Reviewed with previo us results GFR/1.73 sq M.predicted among non-blacks MDRD (S/P/Bld) [Vol rate/Area] 29 mL/min/{1.73_m2} Low - PINF [facility] Comment on above: Calculations of jeremie mated GFR are performed using the 2020 CKD-EPI Study Refit equation without the race variable for the IDMS-Traceable creatinine methods. https://jasn.asnjournals.org/content/early//ASN.2020 198211 Glucose [Mass/Vol] 117 mg/dL High 74 - 99 mg/dL [facility] Interpretation and review of laboratory results Abnormal [facility] Potassium [Moles/Vol] 3.5 mmol/L 3.5 - 5.3 mmol/L [facility] Sodium [Moles/Vol] 135 mmol/L Low 136 - 145 mmol/L [facility] Urea nitrogen [Mass/Vol] 37 mg/dL High 6 - 23 mg/dL [facility] Anion gap [Moles/Vol] 13 mmol/L Normal 10-20 [facility] Comment on above: Performed By: #### 2 524-7 #### SU SCHNEIDER ([id number]) [facility] ([facility]) [address] [place] [address] Calcium [Mass/Vol] 8.1 mg/dL Low 8.6-10.3 [facility] Comment on above: Performed By: #### 2 524-7 #### SU SCHNEIDER ([id number]) [facility] ([facility]) [address] [place] [address] Chloride [Moles/Vol] 102 mmol/L Normal 98-107 [facility] Comment on above: Performed By: #### 2 524-7 #### SU SCHNEIDER ([id number]) [facility] ([facility]) [address] [place] [address] CO2 [Moles/Vol] 24 mmol/L Normal 21-32 [facility] Comment on above: Performed By: #### 2 524-7 #### SU SCHNEIDER ([id number]) [facility] ([facility]) [address] [place] [address] Creatinine [Mass/Vol] 2.39 mg/dL High 0.50-1.30 [facility] Comment on above: Result Comment: Revi ewed with previous results Performed By: #### 2 524-7 #### SU SCHNEIDER ([id number]) [facility] ([facility]) [address] [place] [address] Glomerular filtration rate/1.73 sq M.predicted 29 mL/min/1.73m*2 Low >60 [facility] Comment on above: Result Comment: Calc ulations of estimated GFR are performed using the 2020 CKD-EPI Study Refit equation without the race variable for the IDMS-Traceable creatinine methods. https://jasn.asnjournals.org/content/early//ASN.2020 870223 Performed By: #### 2 524-7 #### SU SCHNEIDER ([id number]) [facility] ([facility]) [address] [place] [address] Glucose [Mass/Vol] 117 mg/dL High 74-99 [facility] Comment on above: Performed By: #### 2 524-7 #### SU SCHNEIDER ([id number]) [facility] ([facility]) [address] [place] [address] Potassium [Moles/Vol] 3.5 mmol/L Normal 3.5-5.3 [facility] Comment on above: Performed By: #### 2 524-7 #### SU SCHNEIDER ([id number]) [facility] ([facility]) [address] [place] [address]14 Sodium [Moles/Vol] 135 mmol/L Low 136-145 [facility] Comment on above: Performed By: #### 2 524-7 #### SU SCHNEIDER ([id number]) [facility] ([facility]) [address] [place] [address] 7[address]60 Urea nitrogen [Mass/Vol] 37 mg/dL High 6-23 [facility] Comment on above: Performed By: #### 2 524-7 #### SU SCHNEIDER ([id number]) [facility] ([facility]) [address] [place] [address] CBC panel Auto (Bld)on 10-13 Erythrocyte distribution width (RBC) [Ratio] 12 % 11.5 - 14.5 % [facility] Hematocrit (Bld) [Volume fraction] 34.5 % Low 41.0 - 52.0 % [facility] Hemoglobin (Bld) [Mass/Vol] 11.5 g/dL Low 13.5 - 17.5 g/dL [facility] Interpretation and review of laboratory results Abnormal [facility] MCH (RBC) [Entitic mass] 32.7 pg 26.0 - 34.0 pg [facility] MCHC (RBC) [Mass/Vol] 33.3 g/dL 32.0 - 36.0 g/dL [facility] MCV (RBC) [Entitic vol] 98 fL 80 - 100 fL [facility] Nucleated RBC/100 WBC (Bld) [Ratio] 0 % [facility] Platelets (Bld) [#/Vol] 182 10*3/uL [facility] RBC (Bld) [#/Vol] 3.52 10*6/uL Low [facility] WBC (Bld) [#/Vol] 16.7 10*3/uL High Unive [facility] Erythrocyte distribution width (RBC) [Ratio] 12.0 % Normal 11.5-14.5 [facility] Comment on above: Performed By: #### 2 524-7 #### SU SCHNEIDER ([id number]) [facility] ([facility]) [facility] [place] [address] Hematocrit (Bld) [Volume fraction] 34.5 % Low 41.0-52.0 [facility] Comment on above: Performed By: #### 2 524-7 #### SU SCHNEIDER ([id number]) [facility] ([facility]) [facility] [place] [address] Hemoglobin (Bld) [Mass/Vol] 11.5 g/dL Low 13.5-17.5 [facility] Comment on above: Performed By: #### 2 524-7 #### SU SCHNEIDER ([id number]) [facility] ([facility]) [address] [place] [address] 17852 MCH (RBC) [Entitic mass] 32.7 pg Normal 26.0-34.0 [facility] Comment on above: Performed By: #### 2 524-7 #### SU SCHNEIDER ([id number]) [facility] ([facility]) [address] [place] [address] 61184 MCHC (RBC) [Mass/Vol] 33.3 g/dL Normal 32.0-36.0 [facility] Comment on above: Performed By: #### 2 524-7 #### SU SCHNEIDER ([id number]) [facility] ([facility]) [address] [place] [address] MCV (RBC) [Entitic vol] 98 fL Normal 80-100 [facility] Comment on above: Performed By: #### 2 524-7 #### SU SCHNEIDER ([id number]) [facility] ([facility]) [address] [place] [address]80[address] Nucleated RBC/100 WBC (Bld) [Ratio] 0.0 /100 WBCs Normal 0.0-0.0 [facility] Comment on above: Performed By: #### 2 524-7 #### SU SCHNEIDER ([id number]) [facility] ([facility]) [address] [place] [address] 39497 Platelets (Bld) [#/Vol] 182 x10*3/uL Normal 150-450 [facility] Comment on above: Performed By: #### 2 524-7 #### SU SCHNEIDER ([id number]) [facility] ([facility]) [address] [place] [address] 48856 RBC (Bld) [#/Vol] 3.52 x10*6/uL Low 4.50-5.90 [facility] Comment on above: Performed By: #### 2 524-7 #### SU SCHNEIDER ([id number]) [facility] ([facility]) [address] [place] [address] 40421 WBC (Bld) [#/Vol] 16.7 x10*3/uL High 4.4-11.3 [facility] Comment on above: Performed By: #### 2 524-7 #### BLUE WYATT ([id number]) [facility] ([facility]) [facility] [place] [address] Extra Urine Gutiérrez Tubeon 09-30 Extra Tube Hold for add-ons. [facility] Comment on above: Auto resulted. [facility] Gastrointestinal pathogens i dentified CLEMENTE+probe Nom (Stl)Ordered By: Oralia Swanson on 10-13-2024 Campylobacter Group Not detected Not Detected [facility] E. coli stx1 gene CLEMENTE+probe Ql (Stl) Not detected Not Detected [facility] E. coli stx2 gene CLEMENTE+probe Ql (Stl) Not detected Not Detected [facility] Interpretation and review of laboratory results Normal [facility] Norovirus genogroup I and II RNA CLEMENTE+probe Nom (Stl) Not detected Not Detected [facility] Rotavirus RNA CLEMENTE+probe Nom (Stl) Not detected Not Detected [facility] Salmonella species Not detected Not Detected [facility] Shigella sp DNA CLEMENTE+probe Ql (Unsp spec) Not detected Not Detected [facility] Vibrio Group Not detected Not Detected [facility] Y. enterocolitica DNA CLEMENTE+probe Ql (Stl) Not detected Not Detected [facility] Sodium (U) [Moles/Vol]on Creatinine (U) [Mass/Vol] 229.3 mg/dL 20.0 - 370.0 mg/dL [facility] Sodium/Creatinine (U) [Ratio] 15 Not established . mmol/g Creat [facility] Sodium, Urine Randomon 10-13 Sodium (U) [Moles/Vol] 34 mmol/L [facility] W Reflex Culture panel (U)on 10-13-2024 Appearance (U) Clear Clear [facility] Bilirubin (U) [Mass/Vol] Negative NEGATIVE [facility] Color (U) Yellow Light-Yello w, Yellow, Dark-Yellow [facility] Glucose Auto test strip (U) [Mass/Vol] Normal Normal mg/dL [facility] Interpretation and review of laboratory results Abnormal [facility] Interpretation and review of laboratory results Normal [facility] Ketones (U) [Mass/Vol] TRACE Abnormal NEGAT DWIGHT mg/dL [facility] Leukocyte esterase Auto test strip Ql (U) Negative NEGATIVE [facility] Nitrite Auto test strip Ql (U) Negative NEGATIVE [facility] pH (U) 6 [pH] 5.0, 5.5, 6.0, 6.5, 7.0, 7.5, 8.0 [facility] Protein (U) [Mass/Vol] 100 (2+) Abnormal NEGAT DWIGHT, 10 (TRACE), 20 (TRACE) mg/dL [facility] RBC (U) [#/Vol] 0.2 (2+) Abnormal NEGATIVE [facility] RBC Auto (Urine sed) [#/Area] 1-2 NONE, 1-2, 3-5 /HPF [facility] Specific gravity (U) [Rel density] 1.023 1.005 - 1.035 [facility] Urobilinogen (U) [Mass/Vol] Normal Normal mg/dL [facility] WBC Auto (Urine sed) [#/Area] NONE 1-5, NONE /HPF [facility] Appearance (U) Clear Normal Clear [facility] Comment on above: Performed By: #### 2 524-7 #### SU SCHNEIDER ([id number]) [facility] ([facility]) [address] [place] [address]99 Bilirubin (U) [Mass/Vol] Negative Normal NEGATIVE [facility] Comment on above: Performed By: #### 2 524-7 #### SU SCHNEIDER ([id number]) [facility] ([facility]) [address] [place] [address] 98026 Color (U) Yellow Normal Light-Yello w, Yellow, Dark-Yellow [facility] Comment on above: Performed By: #### 2 524-7 #### SU SCHNEIDER ([id number]) [facility] ([facility]) [address] [place] [address] 08445 Glucose Auto test strip (U) [Mass/Vol] Normal Normal Normal [facility] Comment on above: Performed By: #### 2 524-7 #### SU SCHNEIDER ([id number]) [facility] ([facility]) [address] [place] [address] 65342 Ketones (U) [Mass/Vol] TRACE Abnormal NEGATIVE [facility] Comment on above: Performed By: #### 2 524-7 #### SU SCHNEIDER ([id number]) [facility] ([facility]) [address] [place] [address] 08815 Leukocyte esterase Auto test strip Ql (U) Negative Normal NEGATIVE [facility] Comment on above: Performed By: #### 2 524-7 #### SU SCHNEIDER ([id number]) [facility] ([facility]) [address] [place], [place] [address] Nitrite Auto test strip Ql (U) Negative Normal NEGATIVE [facility] Comment on above: Performed By: #### 2 524-7 #### SU SCHNEIDER ([id number]) [facility] ([facility]) [address] [place] [address] 58063 pH (U) 6.0 [pH] Normal 5.0, 5.5, 6.0, 6.5, 7.0, 7.5, 8.0 [facility] Comment on above: Performed By: #### 2 524-7 #### SU SCHNEIDER ([id number]) [facility] ([facility]) [address] [place] [address] 45325 Protein (U) [Mass/Vol] 100 (2+) Abnormal NEGAT DWIGHT, 10 (TRACE), 20 (TRACE) [facility] Comment on above: Performed By: #### 2 524-7 #### SU SCHNEIDER ([id number]) [facility] ([facility]) [address] [place] [address] 18120 RBC (U) [#/Vol] 0.2 (2+) Abnormal NEGATIVE [facility] Comment on above: Performed By: #### 2 524-7 #### SU SCHNEIDER ([id number]) [facility] ([facility]) [address] [place] [address] 85820 RBC Auto (Urine sed) [#/Area] 1-2 Normal NONE, 1-2, 3-5 [facility] Comment on above: Performed By: #### 2 524-7 #### SU SCHNEIDER ([id number]) [facility] ([facility]) [address] [place] [address] 95237 Specific gravity (U) [Rel density] 1.023 Normal 1.005-1.035 [facility] Comment on above: Performed By: #### 2 524-7 #### SU SCHNEIDER ([id number]) [facility] ([facility]) [address] [place] [address] 98375 Urobilinogen (U) [Mass/Vol] Normal Normal Normal [facility] Comment on above: Performed By: #### 2 524-7 #### SU SCHNEIDER ([id number]) [facility] ([facility]) [address] [place] [address] 74739 WBC Auto (Urine sed) [#/Area] NONE Normal 1-5, NONE [facility] Comment on above: Performed By: #### 2 524-7 #### SU SCHNEIDER ([id number]) [facility] ([facility]) [address] [place] [address]4860 Bacteria identifiedon 2023 Bacteria identified Cx Nom (U) Test: Urine Culture Specimen Source: Clean Catch/Voided Specimen Type: Urine Specimen Date: 10/12/2024 1633 Result Date: 10/14/2024 0838 Result Status: Final result Abnormal: No Resulting Lab: [facility] [id number] [place] [address] CULTURE No growth Normal [facility] Comment on above: Performed By: #### 2 4323-8 #### SU SCHNEIDER ([id number]) [facility] ([facility]) [address] [place] [address] Basic metabolic 2000 panelon 10-12-2024 Anion gap [Moles/Vol] 15 mmol/L 10 - 2 0 mmol/L [facility] Calcium [Mass/Vol] 8.5 mg/dL Low 8.6 - 10. 3 mg/dL [facility] Chloride [Moles/Vol] 101 mmol/L 98 - 10 7 mmol/L [facility] CO2 [Moles/Vol] 26 mmol/L 21 - 32 mmol/L [facility] Creatinine [Mass/Vol] 2.94 mg/dL High 0.50 - 1.30 mg/dL [facility] Comment on above: Confirmed by repeat analysis GFR/1.73 sq M.predicted among non-blacks MDRD (S/P/Bld) [Vol rate/Area] 22 mL/min/{1.73_m2} Low - PINF [facility] Comment on above: Calculations of jeremie mated GFR are performed using the 2020 CKD-EPI Study Refit equation without the race variable for the IDMS-Traceable creatinine methods. https://jasn.asnjournals.org/content/early/ASN.2020 854767 Glucose [Mass/Vol] 108 mg/dL High 74 - 99 mg/dL [facility] Interpretation and review of laboratory results Abnormal [facility] Potassium [Moles/Vol] 4.1 mmol/L 3.5 - 5.3 mmol/L [facility] Sodium [Moles/Vol] 138 mmol/L 136 - 145 mmol/L [facility] Urea nitrogen [Mass/Vol] 32 mg/dL High 6 - 23 mg/dL [facility] Anion gap [Moles/Vol] 15 mmol/L Normal 10-20 [facility] Comment on above: Performed By: #### 2 4321-2 #### BLUE [place]ATT ([id number]) [facility] ([facility]) [address] [place] [address] Calcium [Mass/Vol] 8.5 mg/dL Low 8.6-10.3 [facility] Comment on above: Performed By: #### 2 4321-2 #### SU SCHNEIDER ([id number]) [facility] ([facility]) [address] [place] [address] Chloride [Moles/Vol] 101 mmol/L Normal 98-107 [facility] Comment on above: Performed By: #### 2 4321-2 #### SU SCHNEIDER ([id number]) [facility] ([facility]) [facility] [place] [address] CO2 [Moles/Vol] 26 mmol/L Normal 21-32 [facility] Comment on above: Performed By: #### 2 4321-2 #### SU SCHNEIDER ([id number]) [facility] ([facility]) [address] [place] [address]154 Creatinine [Mass/Vol] 2.94 mg/dL High 0.50-1.30 [facility] Comment on above: Result Comment: Conf irmed by repeat analysis Performed By: #### 2 4321-2 #### SU SCHNEIDER ([id number]) [facility] ([facility]) [facility] [place] [address] Glomerular filtration rate/1.73 sq M.predicted 22 mL/min/1.73m*2 Low >60 [facility] Comment on above: Result Comment: Calc ulations of estimated GFR are performed using the 2020 CKD-EPI Study Refit equation without the race variable for the IDMS-Traceable creatinine methods. https://jasn.asnjournals.org/content/early//ASN.2020 765596 Performed By: #### 2 4321-2 #### SU SCHNEIDER ([id number]) [facility] ([facility]) [facility] [place] [address] Glucose [Mass/Vol] 108 mg/dL High 74-99 [facility] Comment on above: Performed By: #### 2 4321-2 #### SU SCHNEIDER ([id number]) [facility] ([facility]) [facility] [place] [address] Potassium [Moles/Vol] 4.1 mmol/L Normal 3.5-5.3 [facility] Comment on above: Performed By: #### 2 4321-2 #### SU SCHNEIDER ([id number]) [facility] ([facility]) [address] [place] [address] Sodium [Moles/Vol] 138 mmol/L Normal 136-145 [facility] Comment on above: Performed By: #### 2 4321-2 #### SU SCHNEIDER ([id number]) [facility] ([facility]) [address] [place] [address] Urea nitrogen [Mass/Vol] 32 mg/dL High 6-23 [facility] Comment on above: Performed By: #### 2 4321-2 #### SU SCHNEIDER ([id number]) [facility] ([facility]) [facility] [place] [address] C. difficile toxin A+B tcdA+ tcdB genes CLEMENTE+probe Ql (Stl)on 10-12-2024 Interpretation and review of laboratory results Normal [facility] This test is an FDA-cleared real-time PCR [...] performed more than once per 7 days. [facility] C. difficile, PCRon 10-12-20 24 C. difficile toxin A+B tcdA+tcdB genes CLEMENTE+probe Ql (Stl) Not detected Not Detected [facility] CBC panel Auto (Bld)on 10-12 Erythrocyte distribution width (RBC) [Ratio] 12.1 % 11.5 - 14.5 % [facility] Hematocrit (Bld) [Volume fraction] 38.3 % Low 41.0 - 52.0 % [facility] Hemoglobin (Bld) [Mass/Vol] 12.7 g/dL Low 13.5 - 17.5 g/dL [facility] Interpretation and review of laboratory results Abnormal [facility] MCH (RBC) [Entitic mass] 32.5 pg 26.0 - 34.0 pg [facility] MCHC (RBC) [Mass/Vol] 33.2 g/dL 32.0 - 36.0 g/dL [facility] MCV (RBC) [Entitic vol] 98 fL 80 - 100 fL [facility] Nucleated RBC/100 WBC (Bld) [Ratio] 0 % [facility] Platelets (Bld) [#/Vol] 205 10*3/uL [facility] RBC (Bld) [#/Vol] 3.91 10*6/uL Low Unive [facility] WBC (Bld) [#/Vol] 19.6 10*3/uL High Unive [facility] Erythrocyte distribution width (RBC) [Ratio] 12.1 % Normal 11.5-14.5 [facility] Comment on above: Performed By: #### 5 8410-2 #### SU SCHNEIDER ([id number]) [facility] ([facility]) [address] [place] [address] 39390 Hematocrit (Bld) [Volume fraction] 38.3 % Low 41.0-52.0 [facility] Comment on above: Performed By: #### 5 8410-2 #### SU SCHNEIDER ([id number]) [facility] ([facility]) [address] [place] [address] 52731 Hemoglobin (Bld) [Mass/Vol] 12.7 g/dL Low 13.5-17.5 [facility] Comment on above: Performed By: #### 5 8410-2 #### SU SCHNEIDER ([id number]) [facility] ([facility]) [address] [place] [address] 25355 MCH (RBC) [Entitic mass] 32.5 pg Normal 26.0-34.0 [facility] Comment on above: Performed By: #### 5 8410-2 #### SU SCHNEIDER ([id number]) [facility] ([facility]) [address] [place] [address] 86700 MCHC (RBC) [Mass/Vol] 33.2 g/dL Normal 32.0-36.0 [facility] Comment on above: Performed By: #### 5 8410-2 #### SU SCHNEIDER ([id number]) [facility] ([facility]) [facility] [place] [address] MCV (RBC) [Entitic vol] 98 fL Normal 80-100 [facility] Comment on above: Performed By: #### 5 8410-2 #### SU SCHNEIDER (13449) [facility] ([facility]) [address] [place] [address] 65177 Nucleated RBC/100 WBC (Bld) [Ratio] 0.0 /100 WBCs Normal 0.0-0.0 [facility] Comment on above: Performed By: #### 5 8410-2 #### SU SCHNEIDER ([id number]) [facility] ([facility]) [address] [place] [address] 39840 Platelets (Bld) [#/Vol] 205 x10*3/uL Normal 150-450 [facility] Comment on above: Performed By: #### 5 8410-2 #### SU SCHNEIDER ([id number]) [facility] ([facility]) [address] [place] [address] 53551 RBC (Bld) [#/Vol] 3.91 x10*6/uL Low 4.50-5.90 [facility] Comment on above: Performed By: #### 5 8410-2 #### SU SCHNEIDER ([id number]) [facility] ([facility]) [address] [place] [address] 51832 WBC (Bld) [#/Vol] 19.6 x10*3/uL High 4.4-11.3 [facility] Comment on above: Performed By: #### 5 8410-2 #### SU SCHNEIDER ([id number]) [facility] ([facility]) [address] [place] [address] ABDOMEN WO IV CONTRASTon 10-12-2024 CT ABDOMEN WO IV CONTRAST Interpreted By: Broderick Meeks, STUDY: CT ABDOMEN WO IV CONTRAST; 10/12/2024 2:43 pm INDICATION: Signs/Symptoms:absces s. COMPARISON: CT dated 10/11/2024 ACCESSION NUMBER(S): [id number] ORDERING CLINICIAN: HONEY SHI TECHNIQUE: Contiguous axial [...] Broderick Meeks 10/12/2024 3:26 PM Dictation workstation: [id number] [facility] CT Abdomen WO contraston 1. Dilated [...] Broderick Meeks 10/12/2024 3:26 PM Dictation workstation: [id number] [facility] Interpreted By: Broderick Meeks, STUDY: CT ABDOMEN WO IV CONTRAST; 10/12/2024 2:43 pm INDICATION: Signs/Symptoms:absces s. COMPARISON: CT dated 10/11/2024 ACCESSION NUMBER(S): [id number] ORDERING CLINICIAN: HONEY SHI TECHNIQUE: Contiguous axial [...] abdominal wall mass or hernia is identified. [facility] Broderick Meeks MD - 10/12/2024 Interpreted By: Broderick Meeks, STUDY: CT ABDOMEN WO IV CONTRAST; 10/12/2024 2:43 pm INDICATION: Signs/Symptoms:absces s. COMPARISON: CT dated 10/11/2024 ACCESSION NUMBER(S): [id number] ORDERING CLINICIAN: HONEY SHI TECHNIQUE: Contiguous axial [...] Broderick Meeks 10/12/2024 3:26 PM Dictation workstation: [id number] [facility] Work Phone: Radiology Study observation (narrative) [facility] Work Phone: CT Abdomen WO contrastOrdere d By: Broderick Meeks on 10-12-2024 [facility] Work Phone: Clostridioides difficile tox in A+B tcdA+tcdB geneson 10-12-2024 C. difficile toxin A+B tcdA+tcdB genes CLEMENTE+probe Ql (Stl) Clostridioides difficile toxin A+B tcdA+tcdB genes Not Detected Normal Not Detected [facility] Comment on above: Order Comment: Venip uncture immediately after or during the administration of Metamizole may lead to falsely low results. Testing should be performed immediately prior to Metamizole dosing. Performed By: #### 2 524-7 #### SU SCHNEIDER ([id number]) [facility] ([facility]) [address] [place], [place] [id number] Gastrointestinal pathogens i dentifiedon 10-12-2024 Gastrointestinal pathogens [...] Rotavirus RNA Not Detected Normal Not Detected [facility] Comment on above: Performed By: #### 2 524-7 #### SU SCHNEIDER ([id number]) [facility] ([facility]) [address] [place] [address] 87271 Sodiumon 10-12-2024 Sodium (U) [Moles/Vol] 34 mmol/L Normal [facility] Comment on above: Performed By: #### 2 524-7 #### SU SCHNEIDER ([id number]) [facility] ([facility]) [address] [place] [address] 42237 Sodium (U) [Moles/Vol]on Creatinine (U) [Mass/Vol] 229.3 mg/dL Normal 20.0-370.0 [facility] Comment on above: Performed By: #### 2 524-7 #### SU SCHNEIDER ([id number]) [facility] ([facility]) [facility] [place] [address] Sodium/Creatinine (U) [Ratio] 15 mmol/g Creat Normal Not established . [facility] Comment on above: Performed By: #### 2 524-7 #### SU SCHNEIDER ([id number]) [facility] ([facility]) [address] [phone] Urinalysis complete W Reflex Culture panel (U)on 10-12-2024 Appearance (U) Ex.Turbid Abnormal Clear [facility] Bacteria Auto (Urine sed) [#/Area] 1+ Abnormal NONE SEEN /HPF [facility] Bilirubin (U) [Mass/Vol] Negative NEGATIVE [facility] Color (U) Light-Meade Abnormal Light-Yello w, Yellow, Dark-Yellow [facility] Epithelial cells.squamous Auto (Urine sed) [#/Area] 1-9 (SPARSE) Reference range not established . /HPF [facility] Glucose Auto test strip (U) [Mass/Vol] Normal Normal mg/dL [facility] Interpretation and review of laboratory results Abnormal [facility] Ketones (U) [Mass/Vol] TRACE Abnormal NEGAT DWIGHT mg/dL [facility] Leukocyte clumps Auto (Urine sed) [#/Area] OCCASIONAL Reference range not established . /HPF [facility] Leukocyte esterase Auto test strip Ql (U) Negative NEGATIVE [facility] Nitrite Auto test strip Ql (U) Negative NEGATIVE [facility] pH (U) 5.5 [pH] 5.0, 5.5, 6.0, 6.5, 7.0, 7.5, 8.0 [facility] Protein (U) [Mass/Vol] 100 (2+) Abnormal NEGAT DWIGHT, 10 (TRACE), 20 (TRACE) mg/dL [facility] RBC (U) [#/Vol] 0.2 (2+) Abnormal NEGATIVE [facility] RBC Auto (Urine sed) [#/Area] 11-20 Abnormal NONE, 1-2, 3-5 /HPF [facility] Specific gravity (U) [Rel density] 1.035 1.005 - 1.035 [facility] Urobilinogen (U) [Mass/Vol] Normal Normal mg/dL [facility] WBC Auto (Urine sed) [#/Area] 11-20 Abnormal 1-5, NONE /HPF [facility] Appearance (U) Ex.Turbid Normal Clear [facility] Comment on above: Performed By: #### 2 524-7 #### SU SCHNEIDER ([id number]) [facility] ([facility]) [address] [place] [address] Bacteria Auto (Urine sed) [#/Area] 1+ /HPF Abnormal NONE SEEN [facility] Comment on above: Performed By: #### 2 524-7 #### SU SCHNEIDER ([id number]) [facility] ([facility]) [address] [place] [address] Bilirubin (U) [Mass/Vol] Negative Normal NEGATIVE [facility] Comment on above: Performed By: #### 2 524-7 #### SU SCHNEIDER ([id number]) [facility] ([facility]) [address] [place] [address] Color (U) Light-Meade Normal Light-Yello w, Yellow, Dark-Yellow [facility] Comment on above: Performed By: #### 2 524-7 #### SU SCHNEIDER ([id number]) [facility] ([facility]) [address] [place] [address] Epithelial cells.squamous Auto (Urine sed) [#/Area] 1-9 (SPARSE) Normal Reference range not established . [facility] Comment on above: Performed By: #### 2 524-7 #### SU SCHNEIDER ([id number]) [facility] ([facility]) [address] [place] [address] Glucose Auto test strip (U) [Mass/Vol] Normal Normal Normal [facility] Comment on above: Performed By: #### 2 524-7 #### SU SCHNEIDER ([id number]) [facility] ([facility]) [address] [place] [address] 76408 Ketones (U) [Mass/Vol] TRACE Abnormal NEGATIVE [facility] Comment on above: Performed By: #### 2 524-7 #### SU SCHNEIDER ([id number]) [facility] ([facility]) [address] [place] [address] 08057 Leukocyte clumps Auto (Urine sed) [#/Area] OCCASIONAL Normal Reference range not established . [facility] Comment on above: Performed By: #### 2 524-7 #### SU SCHNEIDER ([id number]) [facility] ([facility]) [address] [place], [place] [phone] Leukocyte esterase Auto test strip Ql (U) Negative Normal NEGATIVE [facility] Comment on above: Performed By: #### 2 524-7 #### SU SCHNEIDER ([id number]) [facility] ([facility]) [address] [place] [address] 31240 Nitrite Auto test strip Ql (U) Negative Normal NEGATIVE [facility] Comment on above: Performed By: #### 2 524-7 #### SU SCHNEIDER ([id number]) [facility] ([facility]) [address] [place] [address] 79622 pH (U) 5.5 [pH] Normal 5.0, 5.5, 6.0, 6.5, 7.0, 7.5, 8.0 [facility] Comment on above: Performed By: #### 2 524-7 #### SU SCHNEIDER ([id number]) [facility] ([facility]) [address] [place] [address] 03249 Protein (U) [Mass/Vol] 100 (2+) Abnormal NEGAT DWIGHT, 10 (TRACE), 20 (TRACE) [facility] Comment on above: Performed By: #### 2 524-7 #### SU SCHNEIDER ([id number]) [facility] ([facility]) [address] [place] [address] 51245 RBC (U) [#/Vol] 0.2 (2+) Abnormal NEGATIVE [facility] Comment on above: Performed By: #### 2 524-7 #### SU SCHNEIDER ([id number]) [facility] ([facility]) [address] [place] [address] RBC Auto (Urine sed) [#/Area] 11-20 Abnormal NONE, 1-2, 3-5 [facility] Comment on above: Performed By: #### 2 524-7 #### SU SCHNEIDER ([id number]) [facility] ([facility]) [address] [place] [address] 90753 Specific gravity (U) [Rel density] 1.035 Normal 1.005-1.035 [facility] Comment on above: Performed By: #### 2 524-7 #### SU SCHNEIDER ([id number]) [facility] ([facility]) [address] [place] [address] 68279 Urobilinogen (U) [Mass/Vol] Normal Normal Normal [facility] Comment on above: Performed By: #### 2 524-7 #### SU SCHNEIDER ([id number]) [facility] ([facility]) [address] [place] [address] 94085 WBC Auto (Urine sed) [#/Area] 11-20 Abnormal 1-5, NONE [facility] Comment on above: Performed By: #### 2 524-7 #### SU SCHNEIDER ([id number]) [facility] ([facility]) [address] [place] [address] CBC W Auto Differential pane l (Bld)on 10-11-2024 Basophils (Bld) [#/Vol] 0.05 10*3/uL [facility] Basophils/100 WBC (Bld) 0.3 % 0.0 - 2.0 % [facility] Eosinophils (Bld) [#/Vol] 0.03 10*3/uL [facility] Eosinophils/100 WBC (Bld) 0.2 % 0.0 - 6.0 % [facility] Erythrocyte distribution width (RBC) [Ratio] 11.8 % 11.5 - 14.5 % [facility] Hematocrit (Bld) [Volume fraction] 39.6 % Low 41.0 - 52.0 % [facility] Hemoglobin (Bld) [Mass/Vol] 13.6 g/dL 13.5 - 17.5 g/dL [facility] Immature granulocytes (Bld) [#/Vol] 0.05 10*3/uL [facility] Immature granulocytes/100 WBC (Bld) 0.3 % 0.0 - 0.9 % [facility] Comment on above: Immature Granulocyte Count (IG) includes promyelocytes, myelocytes and metamyelocytes but does not include bands. Percent differential counts (%) should be interpreted in the context of the absolute cell counts (cells/UL). Interpretation and review of laboratory results Abnormal [facility] Lymphocytes (Bld) [#/Vol] 1.3 10*3/uL [facility] Lymphocytes/100 WBC (Bld) 8.1 % 13.0 - 44.0 % [facility] MCH (RBC) [Entitic mass] 32.8 pg 26.0 - 34.0 pg [facility] MCHC (RBC) [Mass/Vol] 34.3 g/dL 32.0 - 36.0 g/dL [facility] MCV (RBC) [Entitic vol] 95 fL 80 - 100 fL [facility] Monocytes (Bld) [#/Vol] 1.6 10*3/uL High [facility] Monocytes/100 WBC (Bld) 9.9 % 2.0 - 10.0 % [facility] Neutrophils (Bld) [#/Vol] 13.08 10*3/uL High [facility] Comment on above: Percent differential counts (%) should be interpreted in the context of the absolute cell counts (cells/uL). Neutrophils/100 WBC (Bld) 81.2 % 40.0 - 80.0 % [facility] Nucleated RBC/100 WBC (Bld) [Ratio] 0 % [facility] Platelets (Bld) [#/Vol] 242 10*3/uL [facility] RBC (Bld) [#/Vol] 4.15 10*6/uL [facility] (Bld[facility] [#/Vol] 16.1 10*3/uL High [facility] Basophils (Bld) [#/Vol] 0.05 x10*3/uL Normal 0.00-0.10 [facility] Comment on above: Performed By: #### 5 7021-8 #### SU SCHNEIDER ([id number]) [facility] ([facility]) [address] [place] [address] 69610 Basophils/100 WBC (Bld) 0.3 % Normal 0.0-2.0 [facility] Comment on above: Performed By: #### 5 7021-8 #### SU SCHNEIDER ([id number]) [facility] ([facility]) [address] [place] [address] 82610 Eosinophils (Bld) [#/Vol] 0.03 x10*3/uL Normal 0.00-0.70 [facility] Comment on above: Performed By: #### 5 7021-8 #### SU SCHNEIDER ([id number]) [facility] ([facility]) [address] [place] [address] 71441 Eosinophils/100 WBC (Bld) 0.2 % Normal 0.0-6.0 [facility] Comment on above: Performed By: #### 5 7021-8 #### SU SCHNEIDER ([id number]) [facility] ([facility]) [address] [place] [address] 26837 Erythrocyte distribution width (RBC) [Ratio] 11.8 % Normal 11.5-14.5 [facility] Comment on above: Performed By: #### 5 7021-8 #### SU SCHNEIDER ([id number]) [facility] ([facility]) [address] [place] [address] 30287 Hematocrit (Bld) [Volume fraction] 39.6 % Low 41.0-52.0 [facility] Comment on above: Performed By: #### 5 7021-8 #### SU SCHNEIDER ([id number]) [facility] ([facility]) [address] [place] [address] 01200 Hemoglobin (Bld) [Mass/Vol] 13.6 g/dL Normal 13.5-17.5 [facility] Comment on above: Performed By: #### 5 7021-8 #### SU SCHNEIDER ([id number]) [facility] ([facility]) [address] [place] [address] 69401 Immature granulocytes (Bld) [#/Vol] 0.05 x10*3/uL Normal 0.00-0.70 [facility] Comment on above: Performed By: #### 5 7021-8 #### SU SCHNEIDER ([id number]) [facility] ([facility]) [address] [place] [address] 49218 Immature granulocytes/100 WBC (Bld) 0.3 % Normal 0.0-0.9 [facility] Comment on above: Result Comment: Jaclyn ture Granulocyte Count (IG) includes promyelocytes, myelocytes and metamyelocytes but does not include bands. Percent differential counts (%) should be interpreted in the context of the absolute cell counts (cells/UL). Performed By: #### 5 7021-8 #### SU SCHNEIDER ([id number]) [facility] ([facility]) [address] [place] [address] 61676 Lymphocytes (Bld) [#/Vol] 1.30 x10*3/uL Normal 1.20-4.80 [facility] Comment on above: Performed By: #### 5 7021-8 #### SU SCHNEIDER ([id number]) [facility] ([facility]) [address] [place] [address] 81365 Lymphocytes/100 WBC (Bld) 8.1 % Normal 13.0-44.0 [facility] Comment on above: Performed By: #### 5 7021-8 #### SU SCHNEIDER ([id number]) [facility] ([facility]) [address] [place] [address] 13079 MCH (RBC) [Entitic mass] 32.8 pg Normal 26.0-34.0 [facility] Comment on above: Performed By: #### 5 7021-8 #### SU SCHNEIDER ([id number]) [facility] ([facility]) [address] [place] [address] 74081 MCHC (RBC) [Mass/Vol] 34.3 g/dL Normal 32.0-36.0 [facility] Comment on above: Performed By: #### 5 7021-8 #### SU SCHNEIDER ([id number]) [facility] ([facility]) [address] [place] [address] 71625 MCV (RBC) [Entitic vol] 95 fL Normal 80-100 U [facility] Comment on above: Performed By: #### 5 7021-8 #### SU SCHNEIDER ([id number]) [facility] ([facility]) [address] [place] [address] 83795 Monocytes (Bld) [#/Vol] 1.60 x10*3/uL High 0.10-1.00 [facility] Comment on above: Performed By: #### 5 7021-8 #### SU SCHNEIDER ([id number]) [facility] ([facility]) [address] [place] [address] 53039 Monocytes/100 WBC (Bld) 9.9 % Normal 2.0-10.0 [facility] Comment on above: Performed By: #### 5 7021-8 #### SU SCHNEIDER ([id number]) [facility] ([facility]) [address] [place] [address] 34652 Neutrophils (Bld) [#/Vol] 13.08 x10*3/uL High 1.20-7.70 [facility] Comment on above: Result Comment: Perc ent differential counts (%) should be interpreted in the context of the absolute cell counts (cells/uL). Performed By: #### 5 7021-8 #### SU SHCNEIDER ([id number]) [facility] ([facility]) [address] [place] [address] 22813 Neutrophils/100 WBC (Bld) 81.2 % Normal 40.0-80.0 [facility] Comment on above: Performed By: #### 5 7021-8 #### SU SCHNEIDER ([id number]) [facility] ([facility]) [address] [place] [address] 11285 Nucleated RBC/100 WBC (Bld) [Ratio] 0.0 /100 WBCs Normal 0.0-0.0 [facility] Comment on above: Performed By: #### 5 7021-8 #### SU SCHNEIDER ([id number]) [facility] ([facility]) [address] [place] [address] 29271 Platelets (Bld) [#/Vol] 242 x10*3/uL Normal 150-450 [facility] Comment on above: Performed By: #### 5 7021-8 #### SU SCHNEIDER ([id number]) [facility] ([facility]) [address] [place] [address] RBC (Bld) [#/Vol] 4.15 x10*6/uL Low 4.50-5.90 [facility] Comment on above: Performed By: #### 5 7021-8 #### SU SCHNEIDER ([id number]) [facility] ([facility]) [address] [place] [address] WBC (Bld) [#/Vol] 16.1 x10*3/uL High 4.4-11.3 [facility] Comment on above: Performed By: #### 5 7021-8 #### SU SCHNEIDER ([id number]) [facility] ([facility]) [address] [place] [address] CT ABDOMEN PELVIS W IV CONTR [place]igh 10-11-2024 CT ABDOMEN PELVIS W IV CONTRAST (03:20) Zulma Mendez: okay will connect (03:22) Zulma Mendez: re Sofya [address] Dr. Signed by Richard Porter MD STUDY: CT Abdomen and Pelvis with IV Contrast; 10/11/2024 at 2:39 AM. INDICATION: Right lower quadrant abdominal pain. COMPARISON: None available. ACCESSION NUMBER(S): [id number] ORDERING CLINICIAN: JIMENEZ HUTCHINSON TECHNIQUE: CT of [...] perforated appendicitis. Signed by Richard Porter MD [facility] CT Abdomen and Pelvis W cont rast [place] 10-11-2024 Addendum by Richard Porter MD on 10/11/2024 3:44 AM EST (03:20) Zulma Mendez: okay will connect (03:22) Zulma Mendez: re Sofya Oliver Dr. Signed by Richard Porter MD [facility] Work Phone: Acute perforated appendicitis. Signed by Richard Porter MD TELERADIOLOGY STUDY: CT Abdomen and Pelvis with IV Contrast; 10/11/2024 at 2:39 AM. INDICATION: Right lower quadrant abdominal pain. COMPARISON: None available. ACCESSION NUMBER(S): [id number] ORDERING CLINICIAN: JIMENEZ HUTCHINSON TECHNIQUE: CT of [...] abdominal pain. COMPARISON: None available. ACCESSION NUMBER(S): [id number] ORDERING CLINICIAN: JIMENEZ HUTCHINSON TECHNIQUE: CT of [...] perforated appendicitis. Signed by Richard Porter MD [facility] Work Phone: Radiology Study observation (narrative) [facility] Work Phone: CT Abdomen and Pelvis W cont rast IVOrdered By: Richard Porter on 10-11-2024 [facility] Work Phone: Comprehensive metabolic 2000 panelon 10-11-2024 Albumin BCP dye [Mass/Vol] 4.3 g/dL 3.4 - 5.0 g/dL [facility] ALP [Catalytic activity/Vol] 68 U/L 33 - 136 U/L [facility] ALT With P-5'-P [Catalytic activity/Vol] 16 U/L 10 - 52 U/L [facility] Comment on above: Patients treated wit h Sulfasalazine may generate falsely decreased results for ALT. Anion gap [Moles/Vol] 13 mmol/L 10 - 2 0 mmol/L [facility] AST With P-5'-P [Catalytic activity/Vol] 13 U/L 9 - 39 U/L [facility] Bilirubin [Mass/Vol] 1.1 mg/dL 0.0 - 1 .2 mg/dL [facility] Calcium [Mass/Vol] 9.4 mg/dL 8.6 - 10. 3 mg/dL [facility] Chloride [Moles/Vol] 97 mmol/L Low 98 - 10 7 mmol/L [facility] CO2 [Moles/Vol] 27 mmol/L 21 - 32 mmol/L [facility] Creatinine [Mass/Vol] 1.01 mg/dL 0.50 - 1.30 mg/dL [facility] GFR/1.73 sq M.predicted among non-blacks MDRD (S/P/Bld) [Vol rate/Area] 81 mL/min/{1.73_m2} - PINF [facility] Comment on above: Calculations of jeremie mated GFR are performed using the 2020 CKD-EPI Study Refit equation without the race variable for the IDMS-Traceable creatinine methods. https://jasn.asnjournals.org/content//ASN.2020 908797 Glucose [Mass/Vol] 122 mg/dL High 74 - 99 mg/dL [facility] Interpretation and review of laboratory results Abnormal [facility] Potassium [Moles/Vol] 3.6 mmol/L 3.5 - 5.3 mmol/L [facility] Protein [Mass/Vol] 7.6 g/dL 6.4 - 8.2 g/dL [facility] Sodium [Moles/Vol] 133 mmol/L Low 136 - 145 mmol/L [facility] Urea nitrogen [Mass/Vol] 11 mg/dL 6 - 23 mg/dL [facility] Albumin BCP dye [Mass/Vol] 4.3 g/dL Normal 3.4-5.0 [facility] Comment on above: Performed By: #### 2 4323-8 #### SU SCHNEIDER ([id number]) [facility] ([facility]) [address] [place] [address] ALP [Catalytic activity/Vol] 68 U/L Normal 33-136 [facility] Comment on above: Performed By: #### 2 4323-8 #### SU SCHNEIDER ([id number]) [facility] ([facility]) [address] [place] [address] ALT With P-5'-P [Catalytic activity/Vol] 16 U/L Normal 10-52 [facility] Comment on above: Result Comment: Jenni ents treated with Sulfasalazine may generate falsely decreased results for ALT. Performed By: #### 2 4323-8 #### SU SCHNEIDER ([id number]) [facility] ([facility]) [facility] [place] [address] Anion gap [Moles/Vol] 13 mmol/L Normal 10-20 [facility] Comment on above: Performed By: #### 2 4323-8 #### SU SCHNEIDER ([id number]) [facility] ([facility]) [facility] [place] [address] AST With P-5'-P [Catalytic activity/Vol] 13 U/L Normal 9-39 [facility] Comment on above: Performed By: #### 2 4323-8 #### SU SCHNEIDER ([id number]) [facility] ([facility]) [address] [place] [address] 73379 Bilirubin [Mass/Vol] 1.1 mg/dL Normal 0.0-1.2 [facility] Comment on above: Performed By: #### 2 4323-8 #### SU SCHNEIDER ([id number]) [facility] ([facility]) [address] [place] [address] 97651 Calcium [Mass/Vol] 9.4 mg/dL Normal 8.6-10.3 [facility] Comment on above: Performed By: #### 2 4323-8 #### SU SCHNEIDER ([id number]) [facility] ([facility]) [address] [place] [address] 93534 Chloride [Moles/Vol] 97 mmol/L Low 98-107 [facility] Comment on above: Performed By: #### 2 4323-8 #### SU SCHNEIDER ([id number]) [facility] ([facility]) [address] [place] [address] 54623 CO2 [Moles/Vol] 27 mmol/L Normal 21-32 [facility] Comment on above: Performed By: #### 2 4323-8 #### SU SCHNIEDER ([id number]) [facility] ([facility]) [address] [place] [address] 91491 Creatinine [Mass/Vol] 1.01 mg/dL Normal 0.50-1.30 [facility] Comment on above: Performed By: #### 2 4323-8 #### SU SCHNEIDER ([id number]) [facility] ([facility]) [address] [place] [address] 03407 Glomerular filtration rate/1.73 sq M.predicted 81 mL/min/1.73m*2 Normal >60 [facility] Comment on above: Result Comment: Calc ulations of estimated GFR are performed using the 2020 CKD-EPI Study Refit equation without the race variable for the IDMS-Traceable creatinine methods. https://jasn.asnjournals.org/content/early/ASN.2020 734737 Performed By: #### 2 4323-8 #### SU SCHNEIDER ([id number]) [facility] ([facility]) [address] [place] [address] 17258 Glucose [Mass/Vol] 122 mg/dL High 74-99 [facility] Comment on above: Performed By: #### 2 4323-8 #### SU SCHNEIDER ([id number]) [facility] ([facility]) [address] [place] [address] 04998 Potassium [Moles/Vol] 3.6 mmol/L Normal 3.5-5.3 [facility] Comment on above: Performed By: #### 2 4323-8 #### SU SCHNEIDER ([id number]) [facility] ([facility]) [address] [place] [address] 13078 Protein [Mass/Vol] 7.6 g/dL Normal 6.4-8.2 [facility] Comment on above: Performed By: #### 2 4323-8 #### SU SCHNEIDER ([id number]) [facility] ([facility]) [address] [place] [address] 12177 Sodium [Moles/Vol] 133 mmol/L Low 136-145 [facility] Comment on above: Performed By: #### 2 4323-8 #### SU SCHNEIDER ([id number]) [facility] ([facility]) [address] [place] [address] 26693 Urea nitrogen [Mass/Vol] 11 mg/dL Normal 6-23 [facility] Comment on above: Performed By: #### 2 4323-8 #### SU SCHNEIDER ([id number]) [facility] ([facility]) [address] [place] [address] [id number] Laboratory - Chemistry and C hemistry - challengeon 10-11-2024 Lipase [Catalytic activity/Vol] 14 U/L 9 - 82 U/L [facility] Lactate [Moles/Vol] 1.3 mmol/L 0.4 - 2. 0 mmol/L [facility] Lactateon 10-11-2024 Lactate [Moles/Vol] 1.3 mmol/L Normal 0.4-2.[address] [facility] Comment on above: Order Comment: Venip uncture immediately after or during the administration of Metamizole may lead to falsely low results. Testing should be performed immediately prior to Metamizole dosing. Performed By: #### 2 524-7 #### SU SCHNEIDER ([id number]) [facility] ([facility]) [facility] [place] [address] Lactate [Moles/Vol]on 2023 Interpretation and review of laboratory results Normal [facility] Venipuncture immediately after or during the administration of Metamizole may lead to falsely low results. Testing should be performed immediately prior to Metamizole dosing. [facility] Lipase [Catalytic activity/V ol]on 10-11-2024 Interpretation and review of laboratory results Normal [facility] Venipuncture immediately after or during the administration of Metamizole may lead to falsely low results. Testing should be performed immediately prior to Metamizole dosing. [facility] Triacylglycerol lipaseon Lipase [Catalytic activity/Vol] 14 U/L Normal 9-82 [facility] Comment on above: Order Comment: Venip uncture immediately after or during the administration of Metamizole may lead to falsely low results. Testing should be performed immediately prior to Metamizole dosing. Performed By: #### 3 040-3 #### SU SCHNEIDER ([id number]) [facility] ([facility]) [facility] [place] [address] Urinalysis complete W Reflex Culture panel (U)on 10-11-2024 Appearance (U) Clear Clear [facility] Bilirubin (U) [Mass/Vol] Negative NEGATIVE [facility] Color (U) Light-Yellow Light-Yello w, Yellow, Dark-Yellow [facility] Glucose Auto test strip (U) [Mass/Vol] Normal Normal mg/dL [facility] Interpretation and review of laboratory results Abnormal [facility] Ketones (U) [Mass/Vol] Negative NEGAT DWIGHT mg/dL [facility] Leukocyte esterase Auto test strip Ql (U) Negative NEGATIVE [facility] Mucus Auto (Urine sed) [#/Area] FEW Reference range not established . /LPF [facility] Nitrite Auto test strip Ql (U) Negative NEGATIVE [facility] pH (U) 6.5 [pH] 5.0, 5.5, 6.0, 6.5, 7.0, 7.5, 8.0 [facility] Protein (U) [Mass/Vol] 10 (TRACE) NEGAT DWIGHT, 10 (TRACE), 20 (TRACE) mg/dL [facility] RBC (U) [#/Vol] 0.06 (1+) Abnormal NEGATIVE [facility] RBC Auto (Urine sed) [#/Area] 3-5 NONE, 1-2, 3-5 /HPF [facility] Specific gravity (U) [Rel density] 1.026 1.005 - 1.035 [facility] Urobilinogen (U) [Mass/Vol] Normal Normal mg/dL [facility] WBC Auto (Urine sed) [#/Area] 1-5 1-5, NONE /HPF [facility] Appearance (U) Clear Normal Clear [facility] Comment on above: Performed By: #### 5 8077-9 #### SU SCHNEIDER ([id number]) [facility] ([facility]) [address] [place] [address] Bilirubin (U) [Mass/Vol] Negative Normal NEGATIVE [facility] Comment on above: Performed By: #### 5 8077-9 #### SU SCHNEIDER ([id number]) [facility] ([facility]) [address] [place] [address] Color (U) Light-Yellow Normal Light-Yello w, Yellow, Dark-Yellow [facility] Comment on above: Performed By: #### 5 8077-9 #### SU SCHNEIDER ([id number]) [facility] ([facility]) [address] [place] [address]25[address] Glucose Auto test strip (U) [Mass/Vol] Normal Normal Normal [facility] Comment on above: Performed By: #### 5 8077-9 #### SU SCHNEIDER ([id number]) [facility] ([facility]) [address] [place] [address] 21428 Ketones (U) [Mass/Vol] Negative Normal NEGATIVE [facility] Comment on above: Performed By: #### 5 8077-9 #### SU SCHNEIDER ([id number]) [facility] ([facility]) [address] [place] [address] Leukocyte esterase Auto test strip Ql (U) Negative Normal NEGATIVE [facility] Comment on above: Performed By: #### 5 8077-9 #### SU SCHNEIDER ([id number]) [facility] ([facility]) [address] [place] [address] 24079 Mucus Auto (Urine sed) [#/Area] FEW Normal Reference range not established . [facility] Comment on above: Performed By: #### 5 8077-9 #### SU SCHNEIDER ([id number]) [facility] ([facility]) [address] [place] [address]88 Nitrite Auto test strip Ql (U) Negative Normal NEGATIVE [facility] Comment on above: Performed By: #### 5 8077-9 #### SU SCHNEIDER ([id number]) [facility] ([facility]) [address] [place] [address] 9[address] pH (U) 6.5 [pH] Normal 5.0, 5.5, 6.0, 6.5, 7.0, 7.5, 8.0 [facility] Comment on above: Performed By: #### 5 8077-9 #### SU SCHNEIDER ([id number]) [facility] ([facility]) [address] [place] [address] 46656 Protein (U) [Mass/Vol] 10 (TRACE) Normal NEGAT DWIGHT, 10 (TRACE), 20 (TRACE) [facility] Comment on above: Performed By: #### 5 8077-9 #### SU SCHNEIDER ([id number]) [facility] ([facility]) [address] [place] [address] RBC (U) [#/Vol] 0.06 (1+) Abnormal NEGATIVE [facility] Comment on above: Performed By: #### 5 8077-9 #### SU SCHNEIDER ([id number]) [facility] ([facility]) [address] [place] [address] RBC Auto (Urine sed) [#/Area] 3-5 Normal NONE, 1-2, 3-5 [facility] Comment on above: Performed By: #### 5 8077-9 #### SU SCHNEIDER ([id number]) [facility] ([facility]) [address] [place] [address] Specific gravity (U) [Rel density] 1.026 Normal 1.005-1.035 [facility] Comment on above: Performed By: #### 5 8077-9 #### SU SCHNEIDER ([id number]) [facility] ([facility]) [address] [place] [address] Urobilinogen (U) [Mass/Vol] Normal Normal Normal [facility] Comment on above: Performed By: #### 5 8077-9 #### SU SCHNEIDER ([id number]) [facility] ([facility]) [address] [place] [address] WBC Auto (Urine sed) [#/Area] 1-5 Normal 1-5, NONE [facility] Comment on above: Performed By: #### 5 8077-9 #### SU SCHNEIDER ([id number]) [facility] ([facility]) [address] [place] [address] Vital Signs Date Time Vital Sign Value Performing Clinician Facility 12-12-2024 07:50-0500 Body mass index (BMI) [Ratio] 28.43 kg/m2 Facundo Woods MD Work Phone: [facility] 12-12-2024 07:50-0500 Body weight 84.82 kg Facundo Woods MD Work Phone: [facility] 12-12-2024 07:50-0500 Diastolic blood pressure 78 mm[Hg] Facundo Woods MD Work Phone: [facility] 12-12-2024 07:50-0500 Heart rate 69 /min Facundo Woods MD Work Phone: [facility] 12-12-2024 07:50-0500 Systolic blood pressure 127 mm[Hg] Facundo Woods MD Work Phone: [facility] 11-24-2024 11:01-0500 Body temperature 97.7 [degF] Facundo Woods MD Work Phone: [facility] 11-24-2024 11:01-0500 Diastolic blood pressure 69 mm[Hg] Facundo Woods MD Work Phone: [facility] 11-24-2024 11:01-0500 Heart rate 86 /min Facundo Woods MD Work Phone: [facility] 11-24-2024 11:01-0500 SaO2% (BldA) [Mass fraction] 95 % Facundo Woods MD Work Phone: [facility] 11-24-2024 11:01-0500 Systolic blood pressure 107 mm[Hg] Facundo Woods MD Work Phone: [facility] 11-24-2024 09:56-0500 Respiratory rate 16 /min Facundo Woods MD Work Phone: [facility] 11-23-2024 06:12-0500 Body height 172.7 cm Facundo Woods MD Work Phone: [facility] 11-23-2024 06:12-0500 Body mass index (BMI) [Ratio] 28.16 kg/m2 Fcaundo Woods MD Work Phone: [facility] 11-23-2024 06:12-0500 Body weight 84 kg Facundo Woods MD Work Phone: [facility] 11-05-2024 09:21-0500 Body height 172.7 cm Facundo Woods MD Work Phone: [facility] 11-05-2024 09:21-0500 Body mass index (BMI) [Ratio] 28.8 kg/m2 Facundo Woods MD Work Phone: [facility] 11-05-2024 09:21-0500 Body weight 85.91 kg Facudno Woods MD Work Phone: [facility] 11-05-2024 09:21-0500 Diastolic blood pressure 54 mm[Hg] Facundo Woods MD Work Phone: [facility] 11-05-2024 09:21-0500 Heart rate 82 /min Facundo Woods MD Work Phone: [facility] 11-05-2024 09:21-0500 Respiratory rate 16 /min Facundo Woods MD Work Phone: [facility] 11-05-2024 09:21-0500 SaO2% (BldA) [Mass fraction] 97 % Facundo Woods MD Work Phone: [facility] 11-05-2024 09:21-0500 Systolic blood pressure 113 mm[Hg] Facundo Woods MD Work Phone: [facility] 10-19-2024 11:48-0500 Body temperature 98.8 [degF] Jag Medrano MD Work Phone: [facility] 10-19-2024 11:48-0500 Diastolic blood pressure 68 mm[Hg] Jag Medrano MD Work Phone: [facility] 10-19-2024 11:48-0500 Heart rate 79 /min Jag Medrano MD Work Phone: [facility] 10-19-2024 11:48-0500 Respiratory rate 16 /min Jag Medrano MD Work Phone: [facility] 10-19-2024 11:48-0500 SaO2% (BldA) [Mass fraction] 94 % Jag Medrano MD Work Phone: [facility] 10-19-2024 11:48-0500 Systolic blood pressure 109 mm[Hg] Jag Medrano MD Work Phone: [facility] 10-17-2024 21:16-0500 Body height 172.7 cm Jag Medrano MD Work Phone: [facility] 10-17-2024 21:16-0500 Body mass index (BMI) [Ratio] 29.33 kg/m2 Jag Medrano MD Work Phone: [facility] 10-17-2024 21:16-0500 Body weight 87.5 kg Jag Medrano MD Work Phone: [facility] 10-17-2024 19:27-0500 Body temperature 97.5 [degF] Jimenez Hutchinson DO Work Phone: [facility] 10-17-2024 19:27-0500 Diastolic blood pressure 78 mm[Hg] Jimenez Youngersen DO Work Phone: [facility] 10-17-2024 19:27-0500 Heart rate 79 /min Jimenez Youngersen DO Work Phone: [facility] 10-17-2024 19:27-0500 Respiratory rate 18 /min Jimenez Youngersen DO Work Phone: [facility] 10-17-2024 19:27-0500 SaO2% (BldA) [Mass fraction] 96 % Jimenez Youngersen DO Work Phone: [facility] 10-17-2024 19:27-0500 Systolic blood pressure 145 mm[Hg] Jimenez Youngersen DO Work Phone: [facility] 10-17-2024 05:47-0500 Body mass index (BMI) [Ratio] 29.03 kg/m2 Jimenez Youngersen DO Work Phone: [facility] 10-17-2024 05:47-0500 Body weight 87.9 kg Jimenez Hutchinson DO Work Phone: [facility] 10-12-2024 11:06-0500 Body temperature 97.9 [degF] Jimenez Hutchinson DO Work Phone: [facility] 10-12-2024 11:06-0500 Diastolic blood pressure 72 mm[Hg] Jimenez Hutchinson DO Work Phone: [facility] 10-12-2024 11:06-0500 Heart rate 72 /min Jimenez Youngersen DO Work Phone: [facility] 10-12-2024 11:06-0500 Respiratory rate 16 /min Jimenez Youngersen DO Work Phone: [facility] 10-12-2024 11:06-0500 SaO2% (BldA) [Mass fraction] 96 % Jimenez Hutchinson DO Work Phone: [facility] 10-12-2024 11:06-0500 Systolic blood pressure 114 mm[Hg] Jimenez Hutchinson DO Work Phone: [facility] 10-11-2024 05:08-0500 Body height 174 cm Jimenez Hutchinson DO Work Phone: [facility] 10-11-2024 05:08-0500 Body mass index (BMI) [Ratio] 28.93 kg/m2 Jimenez Hutchinson DO Work Phone: [facility] 10-11-2024 05:08-0500 Body weight 87.6 kg Jimenez Hutchinson DO Work Phone: [facility] Encounters Encounter Date Encounter Type Care Provider Facility Start: 05-07-2025 End: 05-07-2025 ambulatory Bashir Cleary [employer] Work Phone: [facility] Start: 05-07-2025 End: 05-07-[address] Suraj Fontaine [facility] Work Phone: Start: 05-07-2025 End: 05-07-2025 ambulatory Bashir Cleary Facility:[facility] Start: 04-09-2025 End: 04-09-2025 ambulatory Bashir Cleary [employer] Work Phone: [facility] Work Phone: Start: 04-09-2025 End: 04-09-[address] Suraj Fontaine MD -Laboratory Work Phone: Start: 04-09-2025 End: 04-09-2025 ambulatory [facility] Facility:[facility] Start: 03-22-2025 End: 03-22-2025 ambulatory [facility] [employer] Work Phone: [facility] Work Phone: Start: 03-22-2025 End: 03-22-2025 Patient encounter procedure Bashir Cleary [employer]ELOPER[employer]C -[facility] [place] Work Phone: Start: 03-22-2025 End: 03-22-2025 ambulatory [facility] Facility:[facility] Start: 12-12-2024 End: 12-12-2024 Postop follow up visit related to original px Facundo Woods MD Work Phone: [facility] Comment on above: S/P laparoscopic milad endectomy (Primary Dx) Start: 12-12-2024 End: 12-12-2024 ambulatory [facility] Start: 11-23-2024 End: 11-24-2024 ambulatory [facility] Start: 11-23-2024 End: 11-24-2024 Subsequent hospital visit by physician Facundo Woods MD Work Phone: [facility] Start: 11-14-2024 Preprocedural examin ation done Facundo Woods MD Work Phone: [facility] Start: 11-14-2024 Encounter for other preprocedural examination [facility] Start: 11-14-2024 End: 11-18-2024 ambulatory [facility] Start: 11-14-2024 End: 11-18-2024 Encounter for other preprocedural examination [facility] Start: 11-05-2024 End: 11-05-2024 Office outpatient visit 25 minutes Facundo Woods MD Work Phone: [facility] Comment on above: Perforated appendici tis (Primary Dx) Start: 11-05-2024 End: 11-05-2024 ambulatory BASHIR CLEARY [facility] Start: 10-17-2024 End: 10-19-2024 Evaluation and management of inpatient Facundo Woods MD Work Phone: [facility] Medical Observation Start: 10-11-2024 End: 10-17-2024 Evaluation and management of inpatient Jimenez Hutchinson DO Work Phone: [facility] Comment on above: Other acute appendic itis (Primary Dx) Procedures Date Procedure Procedure Detail Performing Clinician Start: 05-07-2025 MRI of pelvis with contrast Bashir Cleary [employer] Work Phone: Start: 04-09-2025 Free prostate specific antigen level Bashir Cleary [employer] Work Phone: Comment on above: Edilma ECLIA methodology. Start: 04-09-2025 Prostate specific antigen measurement Bashir Cleary [employer]ELOPER[employer] Work Phone: Comment on above: Edilma ECLIA methodology.According to the [employer], Serum PSAshould decrease and remain at undetectable levels afterradical prostatectomy. The AUA defines biochemicalrecurrence as an initial PSA value 0.200 ng/mL or greaterfollowed by a subsequent confirmatory PSA value 0.200 ng/mLor greater. Values obtained with different assay methods orkits cannot be used interchangeably. Results cannot beinterpreted as absolute evidence of the presence or absenceof malignant disease. Start: 03-22-2025 Prostate specific antigen measurement Bashir Cleary [employer] Work Phone: Comment on above: This test was performed using the Edilma Lomography tPSA method. Measured values of a patient sample can vary depending on the testing procedure used. PSA values determined on patient samples by different testing procedures cannot be used interchangeably. If there is a change in PSA assays while monitoring therapy, sequential testing should be performed to confirm baseline values. Start: 12-12-2024 Follow-up visit Follow-up [facility] Start: 10-19-2024 Comprehensive metabolic panel Erlinda Gilman DO Work Phone: Start: 10-19-2024 Hepatic function panel Erlinda bach DO Work Phone: Start: 10-19-2024 Red blood cell morphology Erlinda Gilman DO Work Phone: Start: 10-18-2024 C-reactive protein José Antonio P Ezike [employer] Work Phone: Start: 10-18-2024 Culture bacterial blood aerobic w/id isolates José Antonio P Ezike [employer] Work Phone: Start: 10-18-2024 Sedimentation rate rbc automated José Antonio P Ezike [employer] Work Phone: Start: 10-18-2024 Img-guide fluid collxn drainag cath periton perq Erlinda Gilman DO Work Phone: Start: 10-18-2024 Cul bact xcpt urine blood/stool aerobic isol Erlinda Gilman DO Work Phone: Start: 10-18-2024 Prothrombin time Kevyn Andinomaria acarson DO Work Phone: Start: 10-18-2024 Ct abdomen & pelvis w/o contrst 1/> body re Erlinda Gilman DO Work Phone: Start: 10-18-2024 Comprehensive metabolic panel Erlinda Shaka Gilman DO Work Phone: Start: 10-18-2024 Hepatic function panel Erlinda bach DO Work Phone: Start: 10-18-2024 Red blood cell morphology Erlinda Gilman DO Work Phone: Start: 10-17-2024 Comprehensive metabolic panel Erlinda Shaka Gilman DO Work Phone: Start: 10-17-2024 Hepatic function panel Erlinda Niwemukiza K isreal DO Work Phone: Start: 10-17-2024 Red blood cell morphology Erlinda Gilman DO Work Phone: Start: 10-17-2024 Basic metabolic panel calcium total Carly Joseph MD Work Phone: Start: 10-16-2024 Basic metabolic panel calcium total Carly Joseph MD Work Phone: Start: 10-15-2024 Basic metabolic panel calcium total Carly Joseph MD Work Phone: Start: 10-14-2024 Basic metabolic panel calcium total Honey Shi MD Work Phone: Start: 10-14-2024 Basic metabolic panel calcium total Donte Becerra DO Work Phone: Start: 10-13-2024 Urinalysis complete W Reflex Culture panel - Urine Carly Joseph MD Work Phone: Start: 10-13-2024 Urnls dip stick/tablet reagent auto microscopy Carly Joseph MD Work Phone: Start: 10-13-2024 Basic metabolic panel calcium total Donte Becerra DO Work Phone: Start: 10-12-2024 End: 10-12-2024 Culture bacterial quanttative colony count urine Carly Joseph MD Work Phone: Start: 10-12-2024 EXTRA URINE GUTIÉRREZ TUBE Carly Joseph MD Work Phone: Start: 10-12-2024 Urinalysis complete W Reflex Culture panel - Urine Carly Joseph MD Work Phone: Start: 10-12-2024 Creatinine other source Carly Joseph MD Work Phone: Start: 10-12-2024 Inf agent det nucleic acid clostridium amp probe Honey Shi MD Work Phone: Start: 10-12-2024 Ct abdomen w/o contrast material Honey Shi MD Work Phone: Start: 10-12-2024 Basic metabolic panel calcium total Enrrique Sadler MD Work Phone: Start: 10-11-2024 Ct abdomen & pelvis w/contrast material Jimenez Hutchinson DO Work Phone: Start: 10-11-2024 Urinalysis complete W Reflex Culture panel - Urine Jimenez Hutchinson DO Work Phone: Start: 10-11-2024 Urnls dip stick/tablet reagent auto microscopy Jimenez Hutchinson DO Work Phone: Start: 10-11-2024 Comprehensive metabolic panel Jimenez Hutchinson DO Work Phone: Start: 07-23-2008 Colonoscopy Jimenez Hutchinson DO Work Phone: Plan of Treatment Date Care Activity Detail Author Start: 03-16-2033 DTaP/Tdap/Td Vaccine s (2 - Td or Tdap) DTaP/Tdap/Td Vaccines (2 - Td or Tdap) [facility] Start: 03-16-2033 Tetanus vaccination Tetanus: Every 1 0yrs [facility] Start: 2029 Respiratory Syncytia l Virus Immunization: Risk, 60-74 Risk, or 75+ (1 - 1-dose 75+ series) Respiratory Syncytial Virus Immunization: Risk, 60-74 Risk, or 75+ (1 - 1-dose 75+ series) [facility] Start: 2029 RSV High Risk: (Elde rly (60+) or Population) (1 - 1-dose 75+ series) RSV High Risk: (Elderly (60+) or Population) (1 - 1-dose 75+ series) [facility] Start: 03-20-2025 Medicare Annual Well ness Visit Medicare Annual Wellness Visit (AWV) [facility] Start: 11-23-2024 End: 11-23-2024 Admission to same day surgery center 11/23/2024 7:20 AM EST - 11/23/2024 9:40 AM EST Surgery [facility] [address] [place] [address] Facundo Woods MD [address] [facility] [address] [place] [address] APPENDECTOMY ROBOTIC XI [facility] Comment on above: APPENDECTOMY ROBOTIC XI Start: 11-23-2024 End: 11-23-2024 Laparoscopic appendectomy APPENDECTOMY ROBOTIC XI Perforated appendicitis 11/23/2024 7:20 AM EST [facility] [place] Start: 11-23-2024 Subsequent hospital visit by physician [facility] Start: 11-14-2024 End: 11-14-2024 Patient encounter procedure 11/14/2024 8:30 AM EST Office Visit [facility] Preadmission Testing [address] [place] [id number] Discharge Disposition: Home [facility] Preadmission Testing Start: 11-05-2024 End: 11-05-2024 Patient encounter procedure 11/05/2024 9:45 AM EST Office Visit [facility] [address] [place] [id number] Facundo Woods MD [address] [facility] [address] [place] [address] [facility] Start: 07-01-2024 COVID-19 Vaccine ( season) COVID-19 Vaccine ( season) [facility] Start: 07-01-2024 Influenza vaccination Influenza Vacc ine (#1) [facility] Start: 12-31-2021 Pneumococcal vaccination Pneum ococcal Vaccine (2 of 2 - PCV) [facility] Start: 12-31-2021 Pneumococcal Vaccine : 65+ Years (2 of 2 - PCV) Pneumococcal Vaccine: 65+ Years (2 of 2 - PCV) [facility] Start: 2019 Fall risk assessment Falls Risk Asse ssment [facility] Start: 07-23-2018 Screening for malign ant neoplasm of colon [facility] Start: 2004 Administration of he rpes zoster vaccine Zoster Vaccines (1 of 2) [facility] Start: 2004 Pneumococcal Vaccine : Age 50+ (1 of 1 - PCV) Pneumococcal Vaccine: Age 50+ (1 of 1 - PCV) [facility] Start: 2004 Pneumococcal Vaccine : Age 65+ (1 of 1 - PCV) Pneumococcal Vaccine: Age 65+ (1 of 1 - PCV) [facility] Start: 2004 Screening for malign ant neoplasm of colon Flexible sigmoidoscopy [facility] Start: 2004 Zoster Vaccines (1 of 2) Zoste r Vaccines (1 of 2) [facility] Start: 1972 Diabetes mellitus screening Diabetes Screening [facility] Start: 1972 Hepatitis C screening Hepatitis C Sc reening [facility] Start: 1966 Depression screening using PHQ-9 (Patient Health Questionnaire 9) score Depression Screening/Follow-Up (PHQ-2/9) [facility] Start: 1957 Medicare Wellness Visit Medicare Wel lness Visit [facility] Start: 1954 Lipid panel Lipid Panel [facility] Start: 1954 Prostate specific antigen measurement PSA Level [facility] Start: 1954 Screening for malign ant neoplasm of colon [facility] Bacteria identified in Blood by Culture [facility] Work Phone: End: 10-13-2024 Basic metabolic 2000 panel - Serum or Plasma Basic Metabolic Panel Lab Routine Morning draw (Lab) for 1 Occurrences starting 10/13/2024 until 10/13/2024 [facility] Work Phone: Comment on above: Morning draw (Lab) f or 1 Occurrences starting 10/13/2024 until 10/13/2024 Body Fluid Aerobic & Anaerobic Culture Body Fluid Aerobic & Anaerobic Culture Microbiology Routine 10/18/2024 10:48 AM EST [facility] Work Phone: End: 10-13-2024 CBC panel - Blood by Automated count CBC Lab Routine Morning draw (Lab) for 1 Occurrences starting 10/13/2024 until 10/13/2024 [facility] Service Area Work Phone: Comment on above: Morning draw (Lab) f or 1 Occurrences starting 10/13/2024 until 10/13/2024 End: 10-18-2024 CBC W Auto Differential panel - Blood CBC and Auto Differential Lab Routine Morning draw (Lab) for 1 Occurrences starting 10/18/2024 until 10/18/2024 [facility] Work Phone: Comment on above: Morning draw (Lab) f or 1 Occurrences starting 10/18/2024 until 10/18/2024 End: 10-18-2024 Comprehensive metabolic 2000 panel - Serum or Plasma Comprehensive Metabolic Panel Lab Routine Morning draw (Lab) for 1 Occurrences starting 10/18/2024 until 10/18/2024 [facility] Work Phone: Comment on above: Morning draw (Lab) f or 1 Occurrences starting 10/18/2024 until 10/18/2024 End: 10-17-2024 CT Abdomen WO contrast [facility] Area Work Phone: Comment on above: Once for 1 Occurrenc es starting 10/17/2024 until 10/17/2024 End: 10-12-2024 CT Guidance for drainage of abscess and placement of drainage catheter of Unspecified body region CT guided abscess fluid collection drainage visceral Perq Imaging STAT Once for 1 Occurrences starting 10/12/2024 until 10/12/2024 [facility] Work Phone: Comment on above: Once for 1 Occurrenc es starting 10/12/2024 until 10/12/2024 Electrocardiogram, 12-lead PRN ACS symptoms Electrocardiogram, 12-lead PRN ACS symptoms ECG Routine As needed until discontinued starting 10/11/2024 [facility] Work Phone: Comment on above: As needed until disc ontinued starting 10/11/2024 Electrocardiogram, 12-lead PRN ACS symptoms Electrocardiogram, 12-lead PRN ACS symptoms ECG Routine As needed until discontinued starting 10/11/2024 [facility] Work Phone: Comment on above: As needed until disc ontinued starting 10/11/2024 End: 10-11-2024 Extra Urine Gutiérrez Tube Extra Urine Gutiérrez Tube Lab Timed Once for 1 Occurrences starting 10/11/2024 until 10/11/2024 [facility] Work Phone: Comment on above: Once for 1 Occurrenc es starting 10/11/2024 until 10/11/2024 End: 10-12-2024 Extra Urine Gutiérrez Tube Extra Urine Gutiérrez Tube Lab Timed Once for 1 Occurrences starting 10/12/2024 until 10/12/2024 [facility] Work Phone: Comment on above: Once for 1 Occurrenc es starting 10/12/2024 until 10/12/2024 End: 10-13-2024 Extra Urine Gutiérrez Tube Extra Urine Gutiérrez Tube Lab Routine Once for 1 Occurrences starting 10/13/2024 until 10/13/2024 [facility] Work Phone: Comment on above: Once for 1 Occurrenc es starting 10/13/2024 until 10/13/2024 Laparoscopic appendectomy APPENDECTOMY ROBOTIC XI Perforated appendicitis [facility] Main [place] Procedure on tissue specimen [facility] Work Phone: Comment on above: Release Upon Orderin g for 1 Occurrences starting 11/23/2024, 1 completed End: 10-12-2024 Sodium [Moles/volume] in Urine Sodium, Urine Random Lab Routine Once (Lab) for 1 Occurrences starting 10/12/2024 until 10/12/2024 [facility] Work Phone: Comment on above: Once (Lab) for 1 Occ urrences starting 10/12/2024 until 10/12/2024 End: 10-11-2024 Urinalysis complete W Reflex Culture panel - Urine Urinalysis with Reflex Culture and Microscopic Lab STAT STAT (Lab) for 1 Occurrences starting 10/11/2024 until 10/11/2024 [facility] Service Area Work Phone: Comment on above: STAT (Lab) for 1 Occ urrences starting 10/11/2024 until 10/11/2024 End: 10-12-2024 Urinalysis complete W Reflex Culture panel - Urine [facility] Work Phone: Comment on above: Once (Lab) for 1 Occ urrences starting 10/12/2024 until 10/12/2024 Once for 1 Occurrenc es starting 10/12/2024 until 10/12/2024 Urinalysis complete W Reflex Culture panel - Urine Urinalysis with Reflex Culture and Microscopic Lab STAT 10/11/2024 2:39 AM EST [facility] Work Phone: End: 10-13-2024 Urinalysis complete W Reflex Culture panel - Urine [facility] Service Area Work Phone: Comment on above: Once (Lab) for 1 Occ urrences starting 10/13/2024 until 10/13/2024 Payers Date Payer Category Payer Self-pay 2023 Medicare (Managed Care) [employer] [id number] 2023 Medicare HMO [employer] ESSENTIAL/PLUS/CONNECT/SN P HMO [id number] 2023 Medicare [id number] 1955 Unknown [id number] 1955 Unknown [id number] 903 1955 Unknown [id number] 903 1954 Unknown [id number] 903 1955 Unknown [id number] 903 1955 Unknown [id number] 903 Self-pay [id number] Unknown [id number] Unknown [id number] 462 Unknown [id number] 462 Unknown [id number] 462 Social History Date Type Detail Facility Start: 01-18-2019 End: 10-11-2024 Tobacco smoking status NHIS Never smoked tobacco [facility] Start: 10-11-2024 End: 10-17-2024 Tobacco use and exposure Smokeless tobacco non-user [facility] Work Phone: Start: 10-11-2024 End: 10-17-2024 History of Social function [facility] Start: 10-11-2024 End: 10-17-2024 [facility] Utilities [facility] Has the [employer], or [employer]. threatened to shut off services in your home in past 12Mo No [facility] How often to you hav e a drink containing alcohol? 2-3 time sa week [facility] Work Phone: How many standard drinks containing alcohol do you have on a typical day? Patient does not drink [facility] Work Phone: How often do you hav e 6 or more drinks on 1 occasion? Never [facility] Work Phone: (I/We) worried delaney er (my/our) food would run out before (I/we) got money to buy more. Never true [facility] Work Phone: Start: 1955 Sex assigned at Not on file [facility] Work Phone: Start: 10-01-2024 End: 10-11-2024 Exposure to SARS-CoV-2 (event) Not sure [facility] Work Phone: Start: 11-23-2024 End: 12-12-2024 Alcoholic beverage intake Current drinker of alcohol (finding) [facility] Start: 11-14-2024 Alcohol Comment MAYBE 6 BEERS A WEEK, NOT EVERY WEEK [facility] Start: 01-17-2019 Tobacco Use Tobacco Use [facility] Start: 1955 Sex Assigned At Male W [facility] Clinical Notes 10-11-2024 to 12-12-2024 [...] AUTHENTICATED BY FACUNDO WOODS, ON 12/12/2024 08:11:20 [facility] 12-12-2024 History of Present illness Narrative Patient presents for follow up s/p robotic appendectomy with lysis of adhesions and drainage of abscess on 11/23/24. Doing well without major issues. Tolerating diet, pain free, bowels working. Incisions C/D/I. All iftikhar removed Abdomen soft, NTND Activity as tolerated. Follow up prn. documented in this encounter [facility] 11-24-2024 Note DISCHARGE SUMMARY Patient: Sofya Cabrera Date of : 1955 Site: [facility] Family Provider: Bashir Cleary CNP Admit Date: [...] Physician(s) Family Provider: Bashir Cleary CNP, Address: [address] A / W* Follow Up: Facundo Woods MD [address] [facility] [place] [id number] Schedule an appointment as soon as possible for a visit in 2 week(s) Patient instructions, including activity, were given to the patient/family at discharge. Please see the After Visit Summary in the electronic medical record for details. Time spent on discharge: < 30 minutes Completed by: Christian Tse CNP on 11/24/24, 2:25 PM AUTHENTICATED BY CHRISTIAN TSE ON 11/24/2024 14:27:18 [facility] 11-24-2024 Hospital course Narrative DISCHARGE SUMMARY Patient: Sofya Cabrera Date of : 1955 Site: [facility] Family Provider: Bashir Cleary CNP Admit Date: [...] Physician(s) Family Provider: Bashir Cleary CNP, Address: [address] A / W* Follow Up: Facundo Woods MD [address] [place] [address] Schedule an appointment as soon as possible for a visit in 2 week(s) Patient instructions, including activity, were given to the patient/family at discharge. Please see the After Visit Summary in the electronic medical record for details. Time spent on discharge: < 30 minutes Completed by: Christian Tse CNP on 11/24/24, 2:25 PM documented in this encounter [facility] 11-24-2024 Hospital Discharge instructions Christian Tse CNP [...] activity until follow up with the Outpatient Trauma/[facility] Surgical Specialists office. We suggest you: Do [...] will have a post-operative visit with a sales representative canvas products of the surgery team. At that appointment you will receive instructions on returning to work. Call the Outpatient Trauma/ [facility]ists office [phone] for advice (Tuesday-Tuesday, 8am to 4pm) or proceed to the nearest Emergency Department if: You feel weak, lightheaded, or dizzy when you sit up or stand. Develop fever, chills, nausea, or vomiting You have increased abdominal or chest pain Your skin is pale, cool and/or clammy You have a rapid increase in your heart rate while resting. documented in this encounter [facility] 11-24-2024 Note POD 1 robotic append ectomy with drainage of abscess and lysis of adhesions. Doing well without issues. No nausea. Pain controlled. Tolerating full liquids, passing gas. AFVS Abdomen soft, slightly distended, ATTP - regular diet today - home later today if tolerating - follow up in office in 2 weeks for staple removal AUTHENTICATED BY FACUNDO WOODS, ON 11/24/2024 06:44:53 [facility] 11-24-2024 History of Present illness Narrative POD [...] if doing well documented in this encounter [facility] 11-23-2024 Note POD 0 robotic append ectomy drainage of intra-abdominal abscess and lysis of adhesions. Patient doing well without issues. Pain controlled, tolerating po intake, no nausea. AFVSS Abdomen soft, aTTP - ADAT - post op antibiotics, will plan to send on a po course of antibiotics upon discharge - likely home tomorrow if doing well AUTHENTICATED BY FACUNDO WOODS, ON 11/23/2024 16:40:39 [facility] 11-23-2024 Plan of care note Problem: Actual or potential alteration in health Goal: Absence of healthcare acquired conditions Outcome: Partially Met Goal: Knowledge of Interdisciplinary Plan of Care Outcome: Partially Met Goal: Knowledge of Enviroment Outcome: Partially Met [facility] 11-23-2024 Miscellaneous Notes Problem: Actual or potential alteration in health Goal: Absence of healthcare acquired conditions Outcome: Partially Met Goal: Knowledge of Interdisciplinary Plan of Care Outcome: Partially Met Goal: Knowledge of Enviroment Outcome: Partially Met SOFYA CABRERA MEGHAN [id number] 1955 DATE 11/23/2024 OPERATIVE REPORT SURGEON FACUNDO [...] perforated appendicitis. He was initially admitted at [facility] October 11 through October 17 with [...] fluid collections that were evacuated using suction metal roofer. Lysis of adhesions was performed sharply as well as using blunt dissection with the suction metal roofer. When this was all completed, I was [...] closed using a 0 Vicryl in a [id number]-[id number]-[id number] fashion. All the remainder of the local anesthetic was injected. The surgical sites were then closed using skin iftikhar. Counts were correct x2 prior to completion of the procedure. He tolerated the procedure well without any apparent complications, able to be extubated, transferred to the recovery room in stable condition. MD Alvaro GAGNON 11/23/2024 09:57 [id number] T 11/23/2024 10:33 JJA/MODL cc: BASHIR CLEARY CNP Brief Post Operative Note Patient Name: Sofya Cabrera : 1955 (68 y.o.) Date of Service: 11/23/2024 CSN: [id number] Procedure(s): APPENDECTOMY ROBOTIC XI Pre-Operative Diagnoses: * Perforated appendicitis [K35.32] Post-Operative Diagnoses: * Same as Pre-Op Diagnosis * Perforated appendicitis [K35.32] Surgeons and Role: * Facundo Woods MD - Primary Anesthesiologist: Sofya Escobar MD Anesthesiologist Railroad Car Repair Supervisor: Dmitri Leong AA; Tyrone Pena AA Roadway Engineer: Raghu Vilchis RN Roadway Engineer Relief: Amanda Augustine RN Scrub Person: Anjali [...] 11/23/2024 9:31 AM documented in this encounter [facility] 11-23-2024 Procedure note SOFYA CABRERA CSN [id number] 1955 DATE 11/23/2024 OPERATIVE REPORT SURGEON FACUNDO [...] perforated appendicitis. He was initially admitted at [facility] October 11 through October 17 with [...] fluid collections that were evacuated using suction metal roofer. Lysis of adhesions was performed sharply as well as using blunt dissection with the suction metal roofer. When this was all completed, I was [...] closed using a 0 Vicryl in a gqxxjv-fc-wvccp fashion. All the remainder of the local anesthetic was injected. The surgical sites were then closed using skin iftikhar. Counts were correct x2 prior to completion of the procedure. He tolerated the procedure well without any apparent complications, able to be extubated, transferred to the recovery room in stable condition. FACUNDO WOODS MD D 11/23/2024 09:57 [id number] T 11/23/2024 10:33 REJI/KRISSY cc: BASHIR CLEARY CNP [facility] 11-23-2024 Procedure note Brief Post Operative Note Patient Name: Sofya Cabrera : 1955 (68 y.o.) Date of Service: 11/23/2024 [facility]: [id number] Procedure(s): APPENDECTOMY ROBOTIC XI Pre-Operative Diagnoses: * Perforated appendicitis [K35.32] Post-Operative Diagnoses: * Same as Pre-Op Diagnosis * Perforated appendicitis [K35.32] Surgeons and Role: * Facundo Woods MD - Primary Anesthesiologist: Sofya Escobar MD Anesthesiologist Railroad Car Repair Supervisor: Dmitri Leong AA; Tyrone Pena AA Roadway Engineer: Raghu Vilchis RN Roadway Engineer Relief: Amanda Augustine RN Scrub Person: Anjali [...] 0004 Facundo Woods MD 11/23/2024 9:31 AM [facility] 11-23-2024 Attending History and physical note INTERVAL HISTORY AND PHYSICAL Patient Name: Sofya Cabrera Admit Date: [id number] MR #: [id number] : 1955 The H&P has been reviewed [...] appendicitis. The [facility]17 and managed with antibiotics [...] Resource Strain: Low Risk (10/11/2024) Received from [facility] Overall Financial Resource Strain (CARDIA) Difficulty of [...] to other structures, need for reoperation, . [facility] 11-23-2024 History and physical note INTERVAL HISTORY AND PHYSICAL Patient Name: Sofya Cabrera Admit Date: [id number] MR #: [id number] : 1955 The H&P has been reviewed and the patient has been examined. I concur with the findings of the H&P. There are no significant changes. It is appropriate to proceed with the planned procedure. Facundo Woods MD 11/23/2024 7:25 AM Source Note - aFcundo Woods MD - 11/05/2024 9:26 AM EST Subjective Patient ID: Sofya Cabrera is a 68 y.o. male. HPI Patient presents for follow up sp hospitalization for perforated appendicitis. The patient was [facility] through 10/17 and managed with antibiotics [...] PERITONEAL 10/18/2024 CT ABSCESS DRAINAGE PERITONEAL 10/18/2024 [facility] has a current medication list which includes the following prescription(s): lisinopril. Allergies: Patient has no known allergies. Social History Socioeconomic History Marital status: Tobacco Use Smoking status: Never Smokeless tobacco: Never Vaping Use Vaping status: Never Used Social Drivers of Health Financial Resource Strain: Low Risk (10/11/2024) Received from [facility] Overall Financial Resource Strain (CARDIA) Difficulty of [...] for reoperation, . documented in this encounter [facility] 11-14-2024 Note Pre-Operative H&P Assessment and Plan [...] AUTHENTICATED BY VERONICA MAN, ON 11/14/2024 09:08:22 [facility] 11-05-2024 Note Subjective Patient ID: Sofya Cabrera is a 68 y.o. male. HPI Patient presents for follow up sp hospitalization for perforated appendicitis. The patient was [facility] through 10/17 and managed with antibiotics [...] Resource Strain: Low Risk (10/11/2024) Received from [facility] Overall Financial Resource Strain (CARDIA) Difficulty of [...] - metroNIDAZOLE (FLAGYL (more content not included)... [facility] 11-05-2024 History of Present illness Narrative Subjective Patient ID: Sofya Cabrera is a 68 y.o. male. HPI Patient presents for follow up sp hospitalization for perforated appendicitis. The patient was [facility] through 10/17 and managed with antibiotics [...] Resource Strain: Low Risk (10/11/2024) Received from [facility] Overall Financial Resource Strain (CARDIA) Difficulty of [...] for reoperation, . documented in this encounter [facility] 10-19-2024 Progress note Formatting of t his note might be different from the original. Patient alert and oriented at time of discharge. After visit summary provided. Patient acknowledges understanding of discharge teaching with teach back. Education provided on incision care, and drain care. [facility] 10-19-2024 Miscellaneous Notes Patient alert and oriented [...] Outcome: Partially Met documented in this encounter [facility] 10-19-2024 Note HMS DISCHARGE [facility] Sofya Cabrera Admitted: 10/17/2024 Discharge Date: 10/19/24 PCP Handoff Recommended Outpatient Testing Follow up with surgery and infectious disease in 2 weeks, follow up with PCP as needed Results Pending At Discharge Fluid Cultures Clinical Summary Sofya Cabrera is a 68 y.o. male patient of No primary care provider on file. With past medical history of hypertension who presented to [facility] on 10/17/2024 as a transfer from [facility] for higher level of care. Patient initially [...] Quantity: 30 tablet Physician(s) Follow Up: Bashir Cleary, EULALIO [address] [address] Follow up As needed De Rangel MD [address] [place] [facility] [address] Follow up in 2 week(s) Facundo Woods MD [address] [id number] Follow up in 2 week(s) Condition at Discharge: Stable Disposition: Home I reviewed discharge recommendations with the patient in person. Patient instructions, including activity, were given to the patient/family at discharge. On day of discharge I saw Sofya Cabrera and spent: > 30 minutes on discharge. Completed by: Zulma Arango CNP on 10/19/24, 11:49 AM AUTHENTICATED BY ZULMA ARANGO, ON 10/19/2024 12:00:31 [facility] 10-19-2024 Hospital course Narrative [facility] DISCHARGE SUMMARY -- [facility] Sofya Cabrera Admitted: 10/17/2024 Discharge Date: 10/19/24 PCP Handoff Recommended Outpatient Testing Follow up with surgery and infectious disease in 2 weeks, follow up with PCP as needed Results Pending At Discharge Fluid Cultures Clinical Summary Sofya Cabrera is a 68 y.o. male patient of No primary care provider on file. With past medical history of hypertension who presented to [facility] on 10/17/2024 as a transfer from [facility] for higher level of care. Patient initially [...] tablet Physician(s) Follow Up: Bashir Cleary CNP [facility] [address] [place] [facility] [address] Follow up As needed De Rangel MD [address] [facility] [address] Follow up in 2 week(s) Facundo Woods MD [address] [place] [facility] [address] [facility] [address] Follow up in 2 week(s) Condition at Discharge: Stable Disposition: Home I reviewed discharge recommendations with the patient in person. Patient instructions, including activity, were given to the patient/family at discharge. On day of discharge I saw Sofya Cabrera and spent: > 30 minutes on discharge. Completed by: Zulma Arango CNP on 10/19/24, 11:49 AM documented in this encounter [facility] 10-19-2024 Note Patient Name: Sofya Cabrera Admit Date: [id number] MR #: [id number] : 1955 Physicians: Bashir Cleary CNP (Family); [...] 975 mg, Oral, Q8H PRN, Erlinda Gilman, , 975 mg at 10/19/24 0139 bisacodyL (DULCOLAX) suppository 10 mg, 10 mg, Rectal, Daily PRN, Erlinda Gilman DO docusate sodium (COLACE) capsule 100 mg, 100 mg, Oral, Daily PRN, Erlinda Gilman, fentaNYL (SUBLIMAZE) inj syringe 50 mcg, 50 mcg, Intravenous, Q5 Min PRN, Mary Holliday MD naloxone (NARCAN) injection 0.1 mg, 0.1 mg, Intravenous, PRN AND naloxone (NARCAN) injection 0.4 mg, 0.4 mg, Intravenous, PRN AND flumazeniL (ROMAZICON) injection 0.2 mg, 0.2 mg, Intravenous, PRN, Mary Holliday MD lisinopriL (PRINIVIL,ZESTRIL) tablet 40 mg, 40 mg, Oral, Daily with lunch, Erlinda Gilman DO, 40 mg at 10/18/24 1229 melatonin Tab 5 mg, 5 mg, Oral, Nightly PRN, Erlinda Gilman DO midazolam (VERSED) injection 1 mg, 1 mg, Intravenous, Q5 Min PRN, Mary Holliday MD nitroGLYCERIN (NITROSTAT) SL tablet 0.4 mg, 0.4 mg, Sublingual, Q5 Min PRN, Erlinda Gilman DO ondansetron (ZOFRAN-ODT) disintegrating tablet 4 mg, [...] excoriations Musculoskeletal: No joint swelling, non tender MEMBERSHIP CORRESPONDENT: Awake, and Ox3 Wound: Rios Catheter: IV Access: yes I reviewed Medications. I reviewed Labs. CT Abscess Drainage Peritoneal Final Result 1. Technically successful CT-guided 10 [place] Citizen right lower quadrant abscess d (more content not included)... [facility] 10-19-2024 History of Present illness Narrative [facility] DAILY PROGRESS NOTE SURGICAL [...] 10/19/2024 ALKPHOS 57 10/19/2024 BILITOT 0.4 10/19/2024 [facility] PROGRESS NOTE Assessment and Plan Sofya Cabrera is a 68 y.o. male patient of No primary care provider on file. With past medical history of hypertension who presented to [facility] on 10/17/2024 as a transfer from [facility] for higher level of care. Patient initially [...] mood and affect documented in this encounter [facility] 10-19-2024 Note [facility] DAILY PROGRESS NOTE SURGICAL [...] AUTHENTICATED BY AKIL CORRALES, ON 10/19/2024 10:54:47 [facility] 10-19-2024 Plan of care note Problem: Actual [...] level of psychosocial functioning Outcome: Partially Met [facility] 10-19-2024 Plan of care note Problem: Actual [...] level of psychosocial functioning Outcome: Partially Met [facility] 10-18-2024 Note Vascular & Intervent ional Radiology Provided By [facility] (Diagnostic Radiology, Interventional and Neurointerventional Radiology and Vascular Medicine) [facility]: [phone] [email or web address] [facility] DIRECTORY PROCEDURE: CT guided RLQ abdominal abscess [...] Partial uvula and soft palate are visualized [place] Protocol: Pre-Procedural verification: Correct patient, correct site and correct procedure confirmed. H&P or interval update complete and in medical record. Informed consent form completed and signed. Radiology images, labs and pathology reviewed with appropriate identifiers (when applicable). Site Marking: N/A Time Out: PERFORMED Technique: See dictation. Complications: None Full report to follow AUTHENTICATED BY MARY HOLLIDAY, ON 10/18/2024 12:27:35 [facility] 10-18-2024 Procedure note Vascular & Interventional Radiology Provided By [facility] (Diagnostic Radiology, Interventional and Neurointerventional Radiology and Vascular Medicine) [facility]: [phone] [email or web address] ASSISTANT DIRECTORY PROCEDURE: CT guided RLQ abdominal abscess [...] Partial uvula and soft palate are visualized [place] Protocol: Pre-Procedural verification: Correct patient, correct site and correct procedure confirmed. H&P or interval update complete and in medical record. Informed consent form completed and signed. Radiology images, labs and pathology reviewed with appropriate identifiers (when applicable). Site Marking: N/A Time Out: PERFORMED Technique: See dictation. Complications: None Full report to follow [facility] 10-18-2024 Procedure note Vascular & Interventional Radiology Provided By [facility] (Diagnostic Radiology, Interventional and Neurointerventional Radiology and Vascular Medicine) [facility]: [phone] [email or web address] GERIATRIC NURSING ASSISTANT DIRECTORY PROCEDURE: CT guided RLQ abdominal abscess [...] Partial uvula and soft palate are visualized [place] Protocol: Pre-Procedural verification: Correct patient, correct site and correct procedure confirmed. H&P or interval update complete and in medical record. Informed consent form completed and signed. Radiology images, labs and pathology reviewed with appropriate identifiers (when applicable). Site Marking: N/A Time Out: PERFORMED Technique: See dictation. Complications: None Full report to follow documented in this encounter [facility] 10-18-2024 Nurse procedure note Patient transferred self to cart awake and alert. Denies pain. [facility] 10-18-2024 Nurse procedure note 10 Fr drain placed to RLQ , Dr Holliday aspirated 10 ml serous drainage and sent to lab. [facility] 10-18-2024 Nurse procedure note Site prepped and draped RLQ [facility] 10-18-[address] Holliday explaining procedure to patient. Patient verbalizes understanding and consent signed. Patient positioned supine on table with all appropriate monitoring devices applied and safety straps in place. CT drain placement. [facility] 10-18-2024 Attending History and physical note INTERVAL HISTORY AND PHYSICAL Patient Name: Sofya Cabrera Admit Date: 12171204 MR #: [id number] : 1955 The H&P has been reviewed and the patient has been examined. I concur with the findings of the H&P. There are no significant changes. It is appropriate to proceed with the planned procedure. Mod sedation, asa 2. Mallamapti II. CV: RRR. Lungs: Clear. Mary Holliday MD 10/18/2024 9:59 AM Source Note - Zulma Arango, EULALIO - 10/18/2024 8:59 AM EST [facility] PROGRESS NOTE Assessment and Plan Sofya Cabrera is a 68 y.o. male patient of No primary care provider on file. With past medical history of hypertension who presented to [facility] on 10/17/2024 as a transfer from [facility] for higher level of care. Patient initially [...] normal coloration Psych: normal mood and affect [employer] Work Phone: 10-18-2024 History and physical note INTERVAL HISTORY AND PHYSICAL Patient Name: Sofya Cabrera Admit Date: 12171204 MR #: [id number] : 1955 The H&P has been reviewed and the patient has been examined. I concur with the findings of the H&P. There are no significant changes. It is appropriate to proceed with the planned procedure. Mod sedation, asa 2. Mallamapti II. CV: RRR. Lungs: Clear. Mary Holliday MD 10/18/2024 9:59 AM Source Note - Zulma Arango CNP - 10/18/2024 8:59 AM EST [facility] PROGRESS NOTE Assessment and Plan Sofya Cabrera is a 68 y.o. male patient of No primary care provider on file. With past medical history of hypertension who presented to [facility] on 10/17/2024 as a transfer from [facility] for higher level of care. Patient initially [...] normal coloration Psych: normal mood and affect [facility] HISTORY AND PHYSICAL -- [facility] Patient Name: Sofya Cabrera : 1955 MR #: [id number] Admit Date: 10/17/2024 Physicians: No primary care provider on file. (Family); Honey Shi MD (Referring) Sofya Cabrera is a 68 y.o. male patient of No primary care provider on file. With past medical history of hypertension who presented to [facility] on 10/17/2024 as a transfer from [facility] for higher level of care. Patient initially [...] hospital or ED yes -- care site [facility] Quality Measures DVT Prophylaxis: SCDs Rios Catheter: [...] significant past medical history who presented to [facility] on 10/17/2024 as a transfer from [facility] for higher level of care, with perforated [...] he has been receiving antibiotics treatment at [facility], however, he was transferred for [...] affect ---- The note was dictated using [employer] dictation system. The voice recognition software is inherently subject to errors including those of syntax and sound-alike substitutions which may escape proofreading. In such instances, original meaning may be extrapolated by contextual derivation. Reach out to me via [employer] Chat for clarification, if needed. documented in this encounter [facility] 10-18-2024 Note EXAMINATION: ACT ABSCESS DRAINAGE PERITONEAL [...] was removed. Following serial dilation, a 10 [place] Citizen M type pigtail drainage catheter was advanced [...] None IMPRESSION: 1. Technically successful CT-guided 10 [place] Citizen right lower quadrant abscess drain placement. Workstation ID: [id number] Dictated by: MARY HOLLIDAY on TueOct 18, 2024 12:33:46 PM EST Transcribed by: MARY HOLLIDAY on TueOct 18, 2024 12:33:46 PM EST Finalized by: MARY HOLLIDAY on TueOct 18, 2024 12:33:46 PM EST [facility] Comment on above: Order Comment: Injur y/Trauma or Illness?:Illness/OtherHow long have you had these symptoms (acute/chronic)?:AcuteReason for exam?:perf appyType of Exam?:InitialAdditional signs and symptoms?:n/a 10-18-2024 Consult note Associated Order (s): IP CONSULT TO INTERVENTIONAL RADIOLOGY Images from the original note were not included. Vascular & Interventional Radiology Provided By [facility] (Diagnostic Radiology, Interventional and Neurointerventional Radiology and Vascular Medicine) Interventional Radiology Department @ : [phone] CT Procedures @ : [phone] [place] Procedures @ : [phone] VIR clinic @ : [email or web address] [facility] G[facility]UR[facility] ASSISTANT DIRECTORY The consult was reviewed. The patient's [...] dilation, stone removal) Venous interventions: intrathoracic and MEMBERSHIP CORRESPONDENT intervention PT/INR < 1.5 - 1.8 (if [...] making to balance bleeding vs. thrombotic risks. [facility] 10-18-2024 Consult note Associated Order (s): IP CONSULT TO INTERVENTIONAL RADIOLOGY Images from the original note were not included. Vascular & Interventional Radiology Provided By [facility] (Diagnostic Radiology, Interventional and Neurointerventional Radiology and Vascular Medicine) Interventional Radiology Department @ : [phone] CT Procedures @ : [phone] [place] Procedures @ : [phone] VIR clinic @ : [phone] [facility] G[facility]IC NUR[facility] ASSISTANT DIRECTORY The consult was reviewed. The patient's [...] dilation, stone removal) Venous interventions: intrathoracic and MEMBERSHIP CORRESPONDENT intervention PT/INR < 1.5 - 1.8 (if [...] making to balance bleeding vs. thrombotic risks. [facility] SURGICAL HISTORY & PHYSICAL/CONSULTATION [...] history of hypertension who initially presented to [facility] on 10/10/2024 with perforated appendicitis. He was treated conservatively with IV antibiotics. A follow-up CT was obtained on 10/17 that revealed a intra-abdominal abscess. He was then transferred to [facility] for higher care. He was admitted under the [facility] service, general surgery was consulted for evaluation. [...] year old male who was transferred from [facility] for perforated appendicitis. The patient was initially [...] continue to follow. documented in this encounter [facility] 10-18-2024 Note [facility] PROGRESS NOTE Assessment and Plan Sofya Cabrera is a 68 y.o. male patient of No primary care provider on file. With past medical history of hypertension who presented to [facility] on 10/17/2024 as a transfer from [facility] for higher level of care. Patient initially [...] AUTHENTICATED BY ZULMA ARANGO, ON 10/18/2024 09:26:00 [facility] 10-18-2024 Consult note Formatting of th is note is different from the original. [facility] SURGICAL HISTORY & PHYSICAL/CONSULTATION [...] history of hypertension who initially presented to [facility] on 10/10/2024 with perforated appendicitis. He was treated conservatively with IV antibiotics. A follow-up CT was obtained on 10/17 that revealed a intra-abdominal abscess. He was then transferred to [facility] for higher care. He was admitted under the [facility] service, general surgery was consulted for evaluation. [...] year old male who was transferred from [facility] for perforated appendicitis. The patient was initially [...] than simple appendectomy. Will continue to follow. [facility] 10-17-2024 Plan of care note Problem: Actual or potential alteration in health Goal: Absence of healthcare acquired conditions Outcome: Partially Met Goal: Knowledge of Interdisciplinary Plan of Care Outcome: Partially Met Goal: Knowledge of Enviroment Outcome: Partially Met [facility] 10-17-2024 History and physical note [facility] HISTORY AND PHYSICAL -- [facility] Patient Name: Sofya Cabrera : 1955 MR #: [id number] Admit Date: 10/17/2024 Physicians: No primary care provider on file. (Family); Honey Shi MD (Referring) Sofya Cabrera is a 68 y.o. male patient of No primary care provider on file. With past medical history of hypertension who presented to [facility] on 10/17/2024 as a transfer from [facility] for higher level of care. Patient initially [...] hospital or ED yes -- care site [facility] Quality Measures DVT Prophylaxis: SCDs Rios Catheter: [...] significant past medical history who presented to [facility] on 10/17/2024 as a transfer from [facility] for higher level of care, with perforated [...] he has been receiving antibiotics treatment at [facility], however, he was transferred for [...] affect ---- The note was dictated using [employer]ation system. The voice recognition software is inherently subject to errors including those of syntax and sound-alike substitutions which may escape proofreading. In such instances, original meaning may be extrapolated by contextual derivation. Reach out to me via [employer] Chat for clarification, if needed. [employer] Work Phone: 10-17-2024 Note [facility]MS HISTORY AND PHYS ICAL -- [facility] Patient Name: Sofya Cabrera : 1955 MR #: [id number] Admit Date: 10/17/2024 Physicians: No primary care provider on file. (Family); Honey Shi MD (Referring) Sofya Cabrera is a 68 y.o. male patient of No primary care provider on file. With past medical history of hypertension who presented to [facility] on 10/17/2024 as a transfer from [facility] for higher level of care. Patient initially [...] hospital or ED yes -- care site [facility] Quality Measures DVT Prophylaxis: SCDs Rios Catheter: [...] significant past medical history who presented to [facility] on 10/17/2024 as a transfer from [facility] for higher level of care, with perforated [...] he has been receiving antibiotics treatment at [facility], however, he was transferred for [...] Skin: normal color (more content not included)... [facility] 10-17-2024 Nurse Note [facility]. Condition stable. IV intact. Pt comfortable [facility] 10-17-2024 Nurse Note Released with [facility] to go to [facility]. Condition stable. IV intact. Pt comfortable documented in this encounter [facility] Work Phone: 10-17-2024 Hospital course Narrative Discharge [...] Status Extra Urine Gutiérrez Tube Collected (10/13/24 7732) Extra Urine Gutiérrez Tube Collected (10/11/24 0239) [...] of care. Patient would be accepted at [facility]. Further management will be done there. [...] Felix Lundy DO documented in this encounter [facility] Work Phone: 10-17-2024 Hospital Discharge instructions Felix Lundy DO - 10/17/2024 7:21 PM EST Patient to continue on IV ciprofloxacin and IV flagyl at [facility] to continue treating acute appendicitis. documented in this encounter [facility] Work Phone: 10-17-2024 Note Formatting of this [...] IR this week. He requested transfer to [place] as closer. Call placed to [facility], spoke to Samantha. Asked xray to upload films and put in as STAT read. Waiting for callback. Patient remains hemodynamically stable with pain in RLQ controlled with tylenol. [facility] Work Phone: 10-17-[address] done but not officially read. By my read, abscess along right side of abdomen with communication to more central area. IR drain should drain most if not all areas and antibiotics should clear up any residual. Informed patient we do not have IR this week. He requested transfer to [place] as closer. Call placed to [facility], spoke to Samantha. Asked xray to upload [...] morning. He is also concerned because social work assistant told him they expected him to be [...] him to surgery. documented in this encounter [facility] Work Phone: 10-17-2024 History of Present illness [...] Signs/Symptoms:abscess. COMPARISON: CT dated 10/11/2024 ACCESSION NUMBER(S): [id number] ORDERING CLINICIAN: HONEY SHI TECHNIQUE: Contiguous axial [...] Broderick Meeks 10/12/2024 3:26 PM Dictation workstation: [id number] Physical exam: General: Well appearing HENT: Head: [...] Shifts: I/O last 3 completed shifts: In: 1990 (22.6 mL/kg) [P.O.:1090; IV Piggyback:900] Out: 2875 (32.7 mL/kg) [Urine:2875 (0.9 mL/kg/hr)] Weight: 87.9 [...] or performed during the hospital encounter of 12/12/24 (from the past 24 hours) Basic metabolic [...] Yellow, Dark-Yellow Appearance, Urine Clear Clear Specific [place], Urine 1.023 1.005 - 1.035 pH, Urine [...] Signs/Symptoms:abscess. COMPARISON: CT dated 10/11/2024 ACCESSION NUMBER(S): [id number] ORDERING CLINICIAN: HONEY SHI TECHNIQUE: Contiguous axial [...] Broderick Meeks 10/12/2024 3:26 PM Dictation workstation: [id number] Assessment/Plan Assessment & Plan Other acute appendicitis [...] Yellow, Dark-Yellow Appearance, Urine Clear Clear Specific [place], Urine 1.023 1.005 - 1.035 pH, Urine [...] Microscopic Result Value Ref Range Color, Urine Light-[place] (N) Light-Yellow, Yellow, Dark-Yellow Appearance, Urine Ex.Turbid (N) Clear Specific [place], Urine 1.035 1.005 - 1.035 pH, Urine [...] Signs/Symptoms:abscess. COMPARISON: CT dated 10/11/2024 ACCESSION NUMBER(S): [id number] ORDERING CLINICIAN: HONEY SHI TECHNIQUE: Contiguous axial [...] Broderick Meeks 10/12/2024 3:26 PM Dictation workstation: [id number] Assessment/Plan Assessment & Plan Other acute appendicitis [...] Microscopic Result Value Ref Range Color, Urine [place] (N) Light-Yellow, Yellow, Dark-Yellow Appearance, Urine Ex.Turbid (N) Clear Specific [place], Urine 1.035 1.005 - 1.035 pH, Urine [...] Signs/Symptoms:abscess. COMPARISON: CT dated 10/11/2024 ACCESSION NUMBER(S): [id number] ORDERING CLINICIAN: HONEY SHI TECHNIQUE: Contiguous axial [...] Broderick Meeks 10/12/2024 3:26 PM Dictation workstation: [id number] CT abdomen pelvis w IV contrast Addendum Date: 10/11/2024 (03:20) Zulma Mendez: okay will connect (03:22) Zulma Mendez: Sofya Quiros pt, Dr. Signed by Richard Porter MD Result Date: 10/11/2024 STUDY: CT Abdomen and Pelvis with IV Contrast; 10/11/2024 at 2:39 AM. INDICATION: Right lower quadrant abdominal pain. COMPARISON: None available. ACCESSION NUMBER(S): [id number] ORDERING CLINICIAN: JIMENEZ HUTCHINSON TECHNIQUE: CT of [...] assist should any new needs arise. LEONEL Resterpo Sofya Cabrera is a 68 y.o. male on day 1 of admission presenting with Other acute appendicitis. 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 He is [...] were you homeless or living in a [place] (including now)? N Transportation Needs In the [...] feels safe. PCP is Dr. Cleary in [place]. Preferred pharmacy is [facility] in [place]. Denies any difficulty obtaining/affording medications. He is independent at home with ADL's and does not use any DME equipment currently and denies the need for any. He is retired and drives self to appointments. [facility] . Medicare IMM reviewed, patient signed, copy provided, original placed in chart. Voiced understanding.. Discharge plan is to return home, denies needs or in home services. to transport home when discharged. Care team to follow. Colette Tony RN/TCC documented in this encounter [facility] Work Phone: 10-17-2024 Evaluation + Plan note Associated Problem(s): Other acute appendicitis 68-year-old male with a past medical history of hypertension, who presented to the emergency room for abdominal pain. CT scan of the abdomen and pelvis showed findings highly suspicious for an acute perforated appendicitis. Blood workup showed leukocytosis. [facility] Work Phone: 10-17-2024 Note Formatting of this n ote might be different from the original. I discussed with the radiology staff. We can do the CT but if there is an abscess there is no interventional radiologist to drain this and the patient will need to be transferred. [facility] Work Phone: 10-17-2024 Plan of care note [...] to address these barriers include . [facility] Work Phone: 10-16-2024 Plan of care note The patient's goals for the shift include no falls go home The clinical goals for the shift include tolerate advanced diet no falls, labs and vs wdl [facility] 10-15-2024 Plan of care note Problem: Pain [...] for the shift include Pain control [facility] 10-15-2024 Plan of care note The patient's [...] and maintained or improved Outcome: Progressing [facility] 10-14-2024 Note Formatting of this n ote [...] will add some oral protein supplements. [facility] Work Phone: 10-14-2024 Plan of care note [...] and maintained or improved Outcome: Progressing [facility] Work Phone: 10-13-2024 Note Formatting of this [...] morning. He is also concerned because social work assistant told him they expected him to be in the hospital for 24 to 48 hours and he thinks that Medicare is going to stop paying after that period of time. I assured him that they will continue to pay as long as it is medically necessary. [facility] Work Phone: 10-13-2024 Plan of care note [...] to address these barriers include . [facility] Work Phone: 10-12-2024 Note Formatting of this [...] infectious disease and the hospitalist were informed. 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 He is [...] were you homeless or living [place] (including now)? N Transportation Needs In the [...] feels safe. PCP is Dr. Cleary in [place]. Preferred pharmacy is [facility] in [place]. Denies any difficulty obtaining/affording medications. He is independent at home with ADL's and does not use any DME equipment currently and denies the need for any. He is retired and drives self to appointments. [facility] . Medicare IMM reviewed, patient signed, copy provided, original placed in chart. Voiced understanding.. Discharge plan is to return home, denies needs or in home services. to transport home when discharged. Care team to follow. Colette Tony RN/TCC documented in this encounter [facility] Work Phone: 10-12-2024 Consult note Associated Order [...] Plan Other acute appendicitis Donte Becerra DO [facility] Work Phone: 10-12-2024 Consult note Associated Order [...] Honey Shi MD documented in this encounter [facility] Work Phone: 10-12-2024 Consult note Associated Order [...] Honey Shi MD documented in this encounter [facility] Work Phone: 10-12-2024 Plan of care note [...] Recommendations to address these barriers include . [facility] Work Phone: 10-12-2024 Miscellaneous Notes Problem: Pain [...] him to surgery. documented in this encounter [facility] Work Phone: 10-11-2024 Note Formatting of this [...] We will continue with the same plan. [facility] Work Phone: 10-11-2024 Note Formatting of this [...] We will continue with the same plan. [facility] Work Phone: 10-11-2024 Note Formatting of this n ote might be different from the original. Patient was seen admitted overnight. Reviewed chart and agree with assessment plan. [facility] Work Phone: 10-11-2024 Note Formatting of this n ote might be different from the original. Patient was seen admitted overnight. Reviewed chart and agree with assessment plan. [facility] Work Phone: 10-11-2024 Consult note Formatting of [...] All questions were answered. Honey Shi MD [facility] Work Phone: 10-11-2024 Plan of care note [...] to address these barriers include . [facility] Work Phone: 10-11-2024 Evaluation + Plan note [...] for DVT prophylaxis Patient is full code [facility] Work Phone: 10-11-2024 History and physical note [...] Yellow, Dark-Yellow Appearance, Urine Clear Clear Specific [place], Urine 1.026 1.005 - 1.035 pH, Urine [...] Mendez: mikegrupo will connect (03:22) Zulma Mendez: re Sofya Oliver Dr. Signed by Richard Porter MD Result Date: 10/11/2024 STUDY: CT Abdomen and Pelvis with IV Contrast; 10/11/2024 at 2:39 AM. INDICATION: Right lower quadrant abdominal pain. COMPARISON: None available. ACCESSION NUMBER(S): [id number] ORDERING CLINICIAN: JIMENEZ HUTCHINSON TECHNIQUE: CT of [...] are not fully corrected) Enrrique Sadler MD [facility] Work Phone: 10-11-2024 History and physical note [...] Yellow, Dark-Yellow Appearance, Urine Clear Clear Specific [place], Urine 1.026 1.005 - 1.035 pH, Urine [...] abdominal pain. COMPARISON: None available. ACCESSION NUMBER(S): [id number] ORDERING CLINICIAN: JIMENEZ HUTCHINSON TECHNIQUE: CT of [...] Enrrique Sadler MD documented in this encounter [facility] Work Phone: 10-11-2024 History and physical note [...] Yellow, Dark-Yellow Appearance, Urine Clear Clear Specific [place], Urine 1.026 1.005 - 1.035 pH, Urine [...] Addendum Date: 10/11/2024 (03:20) Zulma Mendez: augustus ruiz connect (03:22) Zulma Mendez: Sofya Quiros pt, Dr. Signed by Richard Porter MD Result Date: 10/11/2024 STUDY: CT Abdomen and Pelvis with IV Contrast; 10/11/2024 at 2:39 AM. INDICATION: Right lower quadrant abdominal pain. COMPARISON: None available. ACCESSION NUMBER(S): [id number] ORDERING CLINICIAN: JIMENEZ HUTCHINSON TECHNIQUE: CT of [...] Enrrique Sadler MD documented in this encounter [facility] Work Phone: 10-11-2024 Note Formatting of this [...] this we will take him to surgery. [facility] Work Phone: 10-11-2024 Note Formatting of this [...] this we will take him to surgery. [facility] Work Phone: 10-11-2024 Emergency department Note Images [...] alcohol. History provided by: Patient and spouse medical management specialist used: No Physical Exam Vitals and nursing [...] Color, Urine Light-Yellow Appearance, Urine Clear Specific [place], Urine 1.026 pH, Urine 6.5 Protein, Urine [...] Abnormality Status --------- ------ Urinalysis with Reflex C...[[id number]] Abnormal Final result Extra Urine Gutiérrez Tube[[id number]] Please view results for these tests on [...] Hutchinson DO 10/11/24456 documented in this encounter [facility] Work Phone: 10-11-2024 Emergency department Note Images [...] alcohol. History provided by: Patient and spouse medical management specialist used: No Physical Exam Vitals and nursing [...] Color, Urine Light-Yellow Appearance, Urine Clear Specific [place], Urine 1.026 pH, Urine 6.5 Protein, Urine [...] Abnormality Status --------- ------ Urinalysis with Reflex C...[[id number]] Abnormal Final result Extra Urine Gutiérrez Tube[[id number]] Please view results for these tests on [...] Hutchinson DO 10/11/24456 documented in this encounter [facility] Work Phone: 10-11-2024 Physician Emergency department Note [...] alcohol. History provided by: Patient and spouse medical management specialist used: No Physical Exam Vitals and nursing [...] Color, Urine Light-Yellow Appearance, Urine Clear Specific [place], Urine 1.026 pH, Urine 6.5 Protein, Urine [...] Abnormality Status --------- ------ Urinalysis with Reflex C...[[id number]] Abnormal Final result Extra Urine Gutiérrez Tube[[id number]] Please view results for these tests on the individual orders. EXTRA URINE GUTIÉRREZ TUBE URINALYSIS MICROSCOPIC WITH REFLEX CULTURE WBC, Urine 1-5 RBC, Urine 3-5 Mucus, Urine FEW CT abdomen pelvis w IV contrast Final Result Addendum (preliminary) (03:20) Zulma Mendez: mikeay will connect (03:22) Zulma Mendez: re Sofya [...] Other acute appendicitis Jimenez Hutchinson DO 10/11/24456 [facility] Work Phone: Evaluation note Diagnosis Other acute appendicitis- Primary Other acute appendicitis documented in this encounter [facility] Work Phone: Evaluation note* Diagnosis Other acute appendicitis- Primary Other acute appendicitis documented in this encounter [facility] Work Phone: Evaluation note* Diagnosis Perforated appendicitis- Primary [facility] Perforated appendicitis- Primary Perforated appendicitis [facility] Perforated appendicitis- Primary Preop examination- Primary Unspecified pre-operative examination Perforated appendicitis Hypertension, unspecified type [facility] Diagnosis Preop examination- Primary Unspecified pre-operative examination Perforated appendicitis Hypertension, unspecified type S/P laparoscopic appendectomy- Primary Other postprocedural status [facility] noteNo assessment information availableWC[facility] Work Phone: Hospital Discharge instructions* Attachments The following attachments cannot be sent through Care Everywhere. * Appendicitis (Georgian) documented in this encounterOhioHealthReason for referral (narrative)No reason for referral information availableWCleveland Clinic Luther[facility] Work Phone: Reason for visit Narrative* Auth/Cert (Routine) Specialty Diagnoses / Procedures Referred By Tammi t Referred To Contact Diagnoses Perforated appendix Perforated appenix Referral ID Status Reason Start Date Expiration Date Visits Re quested Visits Authorized [id number] 1 1 [facility]* Auth/Cert (Routine) Specialty Diagnoses / Procedures Referred By Tammi pompa Referred To Contact Diagnoses Perforated appendicitis Perforated appendicitis [K35.32] Procedures IN LAPAROSCOPIC APPENDECTOMY Facundo Woods MD [address] [facility] [place] [facility] [address] [place] [address] Phone: tel: fax: Referral ID Status Reason Start Date Expiration Date Visits Re quested Visits Authorized [id number] 11/05/2024 1 1 [facility] Advance Directives No Advanced Directives Records Found [...] Date FASTING March 22, 2025 8:56a m Chief Complaint Admit Date FASTING March 22, 2025 8:56a m Elevated prostate specific antigen [PSA] May 07, 2025 9:20am Additional Source Comments Reason for Visit (unrecogniz ed section and content) Reason Comments Abdominal Pain Pt reports RLQ and L LQ pain x 2 days with nausea, denies urinary symptoms. Has not had a bowel movement approx 3 days ago Specialty Diagnoses / Procedures Referred By Tammi pompa Referred To Contact Diagnoses Other acute appendicitis Procedures ip Enrrique Arroyo MD [address] [place] [id number] Phone: tel: fax: [facility] [address] [place] [id number] Phone: tel: Referral ID Status Reason Start Date Expiration Date Visits Re quested Visits Authorized [id number] 1 1 Reason Comments Consult Appendectomy consult Reason Comments Follow-up Lap appendectomy Scheduled Active and Recently Administ ered Medications (unrecognized section and content) Medication Order 10/10/2024 10/11/2024 10/12/2024 acetaminophen (Tylenol) oral liquid 650 mg(Linked Group 1) 650 mg, oral, Every 6 hours, First dose (after last modification) on Hien 10/11/24 at 0900, Give oral liquid per feeding tube if present. 09 (Given - Provider: Stephanie Brar RN)144 (Given - Provider: Stephanie Brar RN)2114 (Given - Provider: Yvonne Chatterjee RN) 030 (Given - Provider: Yvonne Chatterjee RN)09 (Given [...] 09 (See Alternative - Provider: Stephanie Brar RN)144 (See Alternative - Provider: Stephanie Brar RN)2114 (See Alternative - Provider: Yvonne Chatterjee RN) 030 (See Alternative - Provider: Yvonne Chatterjee RN)0905 (See Alternative - Provider: Stephanie Brar RN)1500 (Due)2100 (Due) acetaminophen (Tylenol) tablet 650 mg(Linked Group 1) 650 mg, oral, Every 6 hours, First dose (after last modification) on Hien 24 at 0900, If ordered PRN for pain, nurse is permitted to administer this medication for higher pain scores based on patient preference? Yes 0905 (See Alternative - Provider: Stephanie Brar RN)1446 (See Alternative - Provider: Stephanie Brar RN)2115 (See Alternative - Provider: Yvonne Chatterjee RN) 0302 (See Alternative - Provider: Yvonne Chatterjee RN)0905 (See Alternative - Provider: Stephanie Brar RN)1500 (Due)2100 (Due) famotidine PF (Pepcid) injection 20 mg 20 mg, intravenous, Administer over 2 Minutes, Every 12 hours scheduled, First dose on Hien 10/11/24 at 0900 0804 (Given - Provider: Stephanie Brar RN)2115 (Given - Provider: Yvonne Chatterjee RN) 09 [...] Brar RN) 0017 (Given - Provider: Yvonne Chatterjee, SHERMAN)0604 (Given - Provider: Yvonne Chatterjee RN) lisinopril tablet 40 mg (CANCELED) 40 mg, oral, Daily, First dose on Hien 10/11/24 at 0900 0804 (Given - Provider: Stephanie Brar RN) 0905 (Given - Provider: Stephanie Brar, SHERMAN) morphine injection 4 mg (COMPLETED) 4 mg, intravenous, Once, On Hien 10/11/24 at 0130, For 1 dose 0141 (Given [...] intravenous, Administer over 0.5 Hours, Once, On Hien 10/11/24 at 0325, For 1 dose, premix bag, Dosing of this medication varies based on severity of illness. Does this patient have sepsis or concern for sepsis (probable or documented infection plus systemic manifestations of infection)? No, Suspected Indication (Select all that apply): Abdominal Infection, Type of Therapy: Empiric, Type of infection: Community-Acquired, Indications: Abdominal Infection 0327 (New Bag - Provider: Saul Ghotra RN)0414 (Stopped - Provider: Saul Ghotra RN) piperacillin-tazobactam (Zosyn) 3.375 g in dextrose (iso) IV 50 mL (CANCELED) 3.375 g, intravenous, Administer over 0.5 Hours, Every 6 hours, First dose on Tue10/11/24 at 0900, premix bag, Dosing of this [...] Provider: Stephanie Brar RN)1516 (Stopped - Provider: Stehpanie Brar RN)2115 (New Bag - Provider: Yvonne Chatterjee RN)2149 (Stopped - Provider: Yvonne Chatterjee, RN) 0302 (New Bag - Provider: Yvonne [...] infusion 75 mL/hr, intravenous, Continuous, Starting on Tue10/11/24 at 0730, For 1 day 0804 (New [...] First dose (after last modification) on Hien 24 at 0900, Give oral liquid per feeding tube if present. Or acetaminophen (Tylenol) suppository 650 mgJump to med 650 mg, rectal, Every 6 hours, First dose (after last modification) on Hien 24 at 0900, Give rectally if unable to [...] First dose (after last modification) on Hien 24 at 0900, Give oral liquid per feeding tube if present. 0319 (See Alternative - Provider: Honey Lewis RN)0904 (See Alternative - Provider: Nydia Batista RN)1513 (See Alternative - Provider: Nydia Batista RN)2012 (See Alternative - Provider: Olesya Shook RN) 020 (See Alternative - Provider: Olesya Shook RN)0856 (See Alternative - Provider: Estela Montes RN)152 (See Alternative - Provider: Estela Montes RN)2054 (See Alternative - Provider: Yvonne Chatterjee RN) 0313 (See Alternative - Provider: Yvonne Chatterjee RN)0842 (See Alternative - Provider: Stephanie Brar, SHERMAN)1546 (See Alternative - Provider: Stephanie Brar RN)2100 (Due) acetaminophen (Tylenol) suppository 650 mg(Linked Group [...] RN)0904 (See Alternative - Provider: Nydia Batista RN)1513 (See Alternative - Provider: Nydia Batista RN)2012 (See Alternative - Provider: Olesya Shook RN) 020 (Not Given - Provider: Olesya Shook RN - Reason: Patient/family refused)0856 (See Alternative - Provider: Estela Montes RN)152 (See Alternative - Provider: Estela Montes RN)2054 (See Alternative - Provider: Yvonne Chatterjee RN) 0313 (See Alternative - Provider: Yvonne Chatterjee RN)0842 (See Alternative - Provider: Stephanie Brar, SHERMAN)1546 (See Alternative - Provider: Stephanie Brar, SHERMAN)2100 (Due) acetaminophen (Tylenol) tablet 650 mg(Linked Group [...] Provider: Nydia Batista RN - Reason: Patient/family refused)1513 (Not Given - Provider: Nydia Batista RN - Reason: Patient/family refused)2012 (Not Given - Provider: Olesya Shook RN - Reason: Patient/family refused) 0209 (See Alternative - Provider: Olesya Shook RN)0856 (Given - Provider: Estela Montes RN)1527 (Not Given - Provider: Estela Montes RN - Reason: Patient/family refused)205 (Given - Provider: Yvonne Chatterjee RN) 0313 (Not Given - Provider: Yvonne Chatterjee RN - Reason: Patient/family refused)0842 (Given - Provider: Stephanie Brar, RN)1546 (Given - Provider: Stephanie Brar, SHERMAN)2100 (Due) ciprofloxacin (Cipro) 400 mg in dextrose [...] RN)1714 (Stopped - Provider: Nydia Batista RN) 0209 (New Bag - Provider: Olesya Shook RN)0315 (Stopped - Provider: Olesya Shook, SHERMAN)1505 (New Bag - Provider: Estela Montes, SHERMAN)1638 (Stopped - Provider: Estela Montes, SHERMAN) 0313 (New Bag - Provider: Yvonne Chatterjee RN)0414 (Stopped - Provider: Yvonne Chatterjee RN)1546 (New Bag - Provider: Stephanie Brar, SHERMAN)1654 (Stopped - Provider: Stephanie Brar, SHERMAN) famotidine PF (Pepcid) injection 20 mg 20 mg, intravenous, Administer over 2 Minutes, Every 12 hours scheduled, First dose on Hien 12/12/24 at 0900 0903 (Given - Provider: Nydia Batista, RN)2011 (Given - Provider: Olesya Shook RN) 0859 (Given - Provider: Estela Montes, SHERMAN)2055 (Given - Provider: Yvonne Chatterjee, SHERMAN) 0853 (Given - Provider: Stephanie [...] use only. 1246 (Given - Provider: Stephanie Brar, SHERMAN) metroNIDAZOLE (Flagyl) 500 mg in sodium chloride [...] Estela Montes RN)1015 (Stopped - Provider: Estela Montes, RN)1700 (New Bag - Provider: Estela Montes, RN)1809 (Stopped - Provider: Estela Montes RN) 0114 (New Bag - Provider: Yvonne Chatterjee RN)0214 (Stopped - Provider: Yvonne Chatterjee RN)0842 (New Bag - Provider: Stephanie Brar, SHERMAN)1016 (Stopped - Provider: Stephanie Brar, SHERMAN)1659 (New Bag - Provider: Stephanie Brar, SHERMAN)1800 (Stopped - Provider: Stephanie Brar RN) potassium chloride (Klor-Con) packet 40 mEq 40 mEq, oral, 2 times daily, First dose on Tue10/14/24 at 0900, Dissolve each packet in 4 ounces of water = 5 mEq per 1 oz fluid. 0903 (Given - Provider: Nydia Batista RN)2012 (Given - Provider: Olesya Shook RN) 0856 (Given - Provider: Estela Montes RN)2055 (Given - Provider: Yvonne Chatterjee RN) 0842 (Given - Provider: Stephanie Brar, SHERMAN)2100 (Due) PRN Medication Order 10/15/2024 10/16/2024 10/17/2024 [...] hours PRN, nausea/vomiting, first line, Starting on Tue10/11/24 at 0711, 1st Line. Patient should allow [...] pain moderate (4-6), first line, Starting on Tue10/11/24 at 0843, If ordered PRN for pain, [...] hours, First dose (after last modification) on Hien24 at 0900, Give oral liquid per feeding [...] Granados, SHERMAN) 1147 (Given - Provider: Wendy Washington RN) magnesium sulfate 2 g in sterile water [...] Elisha Lowe RN)0230 (Stopped - Provider: Elisha Lowe, SHERMAN)0330 (Canceled Entry - Provider: Elisha Lowe RN - Comment: pump not communicating)0644 (New Bag - Provider: Elisha Lowe RN)1147 (Stopped - Provider: Wendy Washington, SHERMAN)1500 (Not Given - Provider: Wendy Washington RN - Reason: Loss of IV access) sodium chloride (PF) (NS) flush 5 mL(Linked Group 1) 5 mL, Intravenous, Every 8 hours scheduled, First dose on Tue10/17/24 at 2230, Saline lock 2230 (Given - Provider: Vivien Yuan RN) 0600 (Given - Provider: Vivien Yuan RN)1400 (Given - Provider: Evette Granados RN)2200 (Given - Provider: Evette Granados, SHERMAN) 0621 (Given - Provider: Elisha Lowe RN)1400 (Not Given - Provider: Wendy Washington RN - Reason: Loss of IV access) PRN Medication Order 10/17/2024 10/18/2024 10/19/2024 acetaminophen (TYLENOL) tablet 975 mg 975 mg, Oral, Every 8 hours PRN, mild pain, fever 100.4 F or greater, headaches, Starting on Tue10/17/24 at 2137 2202 (Given - Provider: Vivien Yuan, SHERMAN) 0612 (Given - Provider: Vivien Yuan, SHERMAN)1551 (Given - Provider: Evette Granados, SHERMAN) 0139 (Given - Provider: Elisha Lowe RN) [...] at 1031, Intra-Procedure 1031 (Given - Provider: Ingrdi Nguyen, SHERMAN)1040 (Given - Provider: Ingrid Nguyen RN) flumazeniL [...] - Provider: Vero Parry, TECHNOLOGIST - Comment: [id number] 06/26) lidocaine 1% (PF) (XYLOCAINE-MPF) 10 mg/mL [...] mL, Intravenous, Once in imaging, contrast, Per asphalt engineer (Radiology) for line patency check prior to contrast administration, Starting on Hien 10/18/24 at 0645, For 1 dose 0649 (Given - Provider: Vero Parry, TECHNOLOGIST) sodium chloride (PF) (NS) 0.9 % contrast line flush 80 mL (COMPLETED)(Linked Group 4) 80 mL, Intravenous, Once in imaging, contrast, Per asphalt engineer (Radiology), Starting on Hien 10/18/24 at 0645, For 1 dose, 30 mL BEFORE contrast administration 50 mL AFTER contrast administration 0648 (Given - Provider: Vero Parry, TECHNOLOGIST) sodium chloride (PF) (NS) flush 5 mL(Linked Group 1) 5 mL, Intravenous, As needed, line care, Starting on Tue10/17/24 at 4 sodium chloride 0.9% (NS)(Linked Group 1) 0-150 mL/hr, Intravenous, As needed, To flush line after IV infusions when no maintenance IV ordered or a compatibility issue. Infuse 20ml at the same rate as the secondary infusion, Starting on Tue10/17/24 at 2134, Run as Primary IV. NOT intended for KVO. 2340 (New Bag - Provider: Vivien Yuan, RN) 0906 (New Bag - Provider: Evette Granados, RN)0906 (Stopped - Provider: Elisha Lowe, RN)0909 (New Bag - Provider: Evette Granados, RN)0909 (Stopped - Provider: Elisha Lowe RN)1557 (New Bag - Provider: Evette Granados, RN)2216 (Stopped - Provider: Elisha Lowe, SHERMAN)2222 (New Bag - Provider: Evette Granados, SHERMAN)2222 (Stopped - Provider: Elisha Lowe RN) 0233 (Restarted - Provider: Elisha Lowe RN)0321 (Stopped - Provider: Elisha Lowe RN)0644 (New Bag - Provider: Elisha Lowe RN)1147 (Stopped - Provider: Wendy Washington RN) sodium chloride 0.9% (NS) (COMPLETED) Code/trauma/sedation continuous med, Starting on Hien 10/18/24 at 1030, Intra-Procedure 1030 (New Bag - Provider: Ingrid Nguyen, RN - Comment: for CT procedure)1052 (Stopped - Provider: Ingrid Nguyen, RN) traZODone (DESYREL) tablet 50 mg 50 mg, [...] mL, Intravenous, Once in imaging, contrast, Per asphalt engineer (Radiology) for line patency check prior to contrast administration, Starting on Tue10/18/24 at 0645, For 1 dose And sodium chloride (PF) (NS) 0.9 % contrast line flush 80 mL (COMPLETED)Jump to med 80 mL, Intravenous, Once in imaging, contrast, Per asphalt engineer (Radiology), Starting on Tue10/18/24 at 0645, For 1 dose, 30 mL [...] 1200 1227 (Given - Provid er: Vero Nelson RN) metroNIDAZOLE (FLAGYL) IVPB 500 mg (COMPLETED) [...] 0645, Pre-Procedure 0633 (New Bag - Provider: Reynaldo Riggs RN)0729 (Paused - Provider: ADAM Richter [...] mild pain, Starting on Tue11/23/24 at 2046 2127 (Given - Provider: Rebecca Alvarado RN) [...] Care Teams (unrecognized sec tion and content) Talent Development Analyst Relationship Specialty Start Date End Date Bashir Cleary APRN-EULALIO [place] [id number] PCP - General Family Medicine 10/11/24 Talent Development Analyst Relationship Specialty Start Date End Date Bashir Cleary APRN-EULALIO [address] [id number] PCP - General Family Medicine 10/11/24 Talent Development Analyst Relationship Specialty Start Date End Date Bashir Cleary CNP [address] [place] [address] PCP - General Nurse Practitioner 10/17/24 Talent Development Analyst Relationship Specialty Start Date End Date Bashir Cleary CNP [address] [place] [address] PCP - General Nurse Practitioner 10/17/24 Talent Development Analyst Relationship Specialty Start Date End Date Bashir Cleary CNP [facility] [address] [place] [address] PCP - General Nurse Practitioner 10/17/24 Talent Development Analyst Relationship Specialty Start Date End Date Bashir Cleary CNP [place] [id number] [place], [place] [id number] PCP - General Nurse Practitioner 10/17/24 Talent Development Analyst Relationship Specialty Start Date End Date Bashir Cleary CNP [place] [id number] [place], [place] [id number] PCP - General Nurse Practitioner 10/17/24 Team Status: Active Member Role Status Dates Dr. Dorian Metzger MD Family Provider Active Bashir Cleary SAP BW DEVELOPER-C Primary Care Provider Active Team Status: Inactive Member Role Status Dates Bashir Cleary SAP BW DEVELOPER-C Primary Care Provider Active Start: March 22, 2025 End: March 22, 2025 Bashir Cleary SAP BW DEVELOPER-C Attending Provider Active St art: March 22, 2025 End: March 22, 2025 Bashir Cleary SAP BW DEVELOPER-C Referring Provider Active St art: March 22, 2025 End: March 22, 2025 Team Status: Inactive Member Role Status Dates Bashir Cleary SAP BW DEVELOPER-C Primary Care Provider Active Start: April 09, 2025 End: April 09, 2025 Dr. Suraj Fontaine MD Attending Provider Active Start: April 09, 2025 End: April 09, 2025 Dr. Suraj Fontaine MD Referring Provider Active Start: April 09, 2025 End: April 09, 2025 Team Status: Active Member Role/Relationship Status Dates Bashir Cleary SAP BW DEVELOPER-C Primary Care Provider Active Team Status: Inactive Member Role/Relationship Status Dates WENDI Heath Primary Care Provider Active Start: March 22, 2025 End: March 22, 2025 WENDI Heath Attending Provider Active St art: March 22, 2025 End: March 22, 2025 WENDI Heath Referring Provider Active St art: March 22, 2025 End: March 22, 2025 Team Status: Inactive Member Role/Relationship Status Dates WENDI Heath Primary Care Provider Active Start: April 09, 2025 End: April 09, 2025 Dr. Suraj Fontaine MD Attending Provider Active Start: April 09, 2025 End: April 09, 2025 Dr. Suraj Fontaine MD Referring Provider Active Start: April 09, 2025 End: April 09, 2025 Team Status: Inactive Member Role/Relationship Status Dates WENDI Heath Primary Care Provider Active Start: May 07, 2025 End: May 07, 2025 Dr. Suraj Fontaine MD Attending Provider Active Start: May 07, 2025 End: May 07, 2025 Dr. Suraj Fontaine MD Referring Provider Active Start: May 07, 2025 End: May 07, 2025 (unrecognized sect ion and content) No Status Records FoundNo Status Records FoundNo Status Records FoundNo Status Records Found INFORMATION SOURCE (unrecogn ized section and content) DATE CREATED AUTHOR 10/23/2024 [facility] DATE CREATED AUTHOR AUTHOR'S ORGANIZ ATION 11/29/2024 [facility] DATE CREATED AUTHOR AUTHOR'S ORGANIZ ATION 12/14/2024 [facility] DATE CREATED AUTHOR AUTHOR'S ORGANIZ ATION 05/18/2025 [facility] Goals (unrecognized section and content) Goals may be documented in a n alternate sectionGoals may be documented in an alternate sectionGoals may be documented in an alternate section FOR RECORDS PERTAINING TO PATIENTS [...] BE BASED ON THE PRIMARY CLINICAL RECORDS. [facility] [employer] [facility] provides no warranty or guarantee of the accuracy or completeness of information in this document.
== END | disposition home or self-care (01) ==
LOC: LABSPEC 16:14
PROVIDERS: PCP Nurse Practitioner Family; Referring Provider Urology; Visit Provider Urology
DX: C61 Malignant neoplasm of prostate (principal)
CPT/HCPCS: 88305; 88342; G0416